=== PATIENT | female | born 1975 | race Caucasian/White ===

== ENCOUNTER 2021-01-14 12:45 | Outpatient (REF) | payer OTHER, SELFPAY ==
[2021-01-14 13:58] LABS: MANUAL DIFF FLAG NO
[2021-01-14 14:04] LABS: Basophils Percent Auto 0.3 % (0-2); Eosinophils Percent Auto 0.1 % (0-4); Hematocrit 46.9 % (37-47); Hemoglobin 15.7 g/dl (12.0-16.0); Imm Gran Abs Auto 0.01 X10*3/uL (0.00-0.03); Imm Gran Pct Auto 0.1 % (0.0-0.4); Lymphocytes Absolute Auto 1.9 X10*3/uL (1.2-4.9); Lymphocytes Percent Auto 27.3 % (20-40); Mean Corpuscular HGB Conc 33.5 g/dl (31.0-35.0); Mean Corpuscular Hemoglobin 28.4 pg (27.0-33.0); Mean Platelet Volume 10.1 fL (9.4-12.3); Monocytes Absolute Auto 0.5 X10*3/uL (0.1-1.2); Monocytes Percent Auto 7.9 % (2-11); Neutrophils Absolute Auto 4.4 X10*3/uL (2.0-8.3); Neutrophils Percent Auto 64.3 % (45-73); Platelet Count 189 X10*3/uL (160-400); Red Blood Count 5.52 X10*6/uL (4.20-5.50); Red Cell Distribution Width 12.9 % (11.0-16.0); White Blood Count 6.9 X10*3/uL (4.8-10.8)
[2021-01-14 14:57] LABS: Anion Gap 15 (12-20); Blood Urea Nitrogen 13 mg/dL (9-16); Carbon Dioxide 25 mmol/L (22-29); Chloride 105 mmol/L (96-108); Cholesterol 168 mg/dL; Estimated Glomerular Filt Rate > 60; Glucose Fasting 86 mg/dL (60-99); HDL Cholesterol 33 mg/dL; LDL Cholesterol Calculated 97 mg/dl; Potassium 4.5 mmol/L (3.3-5.1); Sodium 140 mmol/L (135-145); Triglycerides 194 mg/dL
[2021-01-14 15:20] LABS: TSH reflex Free T4 0.91 uIU/mL (0.32-4.0); Vitamin D 25-OH Total 23.6 ng/mL (>30)
[2021-01-14 15:44] LABS: Folate 11.8 ng/mL (> or = 4.0); Vitamin B12 342 pg/mL (200-900)
[2021-01-15 08:33] LABS: HBsAGNum1 0.18 S/CO (0.00-0.99); Hepatitis A Antibody IgM 0.09 Index (0-0.79); Hepatitis B Surface Antigen Negative (Negative); ~Hepatitis A Antibody IgM Nonreactive (Nonreactive)
[2021-01-15 08:40] LABS: Syphilis Screen Nonreactive (Nonreactive)
[2021-01-15 08:58] LABS: HBS Num1 > 1000.00 mIU/mL (0-7.99); HBc Num1 0.07 S/CO (0.00-0.79); Hepatitis B Core Antibody Nonreactive (Nonreactive); ~Hepatitis B Surface Antibody REACTIVE (Nonreactive)
[2021-01-15 08:59] LABS: ~Hepatitis C Antibody Nonreactive (Nonreactive)
[2021-01-15 11:02] LABS: HIV Num 3 1.14 S/CO
[2021-01-15 11:05] LABS: HIV Num 1 1.13 S/CO (0.00-0.99)
[2021-01-15 11:16] LABS: HIV AB/AG Reactive (Nonreactive)
[2021-01-15 11:40] LABS: CT PCR NOT DETECTED (Not Detect.); NG PCR NOT DETECTED (Not Detect.)
[2021-01-16 13:02] LABS: HIV 1 Antibody NEGATIVE (NEGATIVE); HIV 2 Antibody NEGATIVE (NEGATIVE)
[2021-01-19 14:57] LABS: HIV-1 RNA TMA Qualitative Not Detected (Not Detected)
== END 2021-01-14 12:46 | disposition home or self-care (01) ==
LOC: HO.HMGCLDS 12:45
PROVIDERS: PCP Internal Medicine; Visit Provider Internal Medicine
DX: Z00.01 Encounter for general adult medical examination with abnormal findings (principal); R06.00 Dyspnea, unspecified; I10 Essential (primary) hypertension; Z11.59 Encounter for screening for other viral diseases; Z11.4 Encounter for screening for human immunodeficiency virus [HIV]; Z13.220 Encounter for screening for lipoid disorders; Z11.3 Encounter for screening for infections with a predominantly sexual mode of transmission; Z11.8 Encounter for screening for other infectious and parasitic diseases; Z13.29 Encounter for screening for other suspected endocrine disorder
CPT/HCPCS: 36415; 80048; 80061; 82306; 82607; 82746; 84443; 85025; 86701; 86702; 86704; 86706; 86709; 86780; 86803; 87340; 87389; 87491; 87591

== ENCOUNTER 2021-02-28 14:28 | Outpatient (REF) | payer OTHER, SELFPAY ==
--- NOTE | ~2021-02-28 | US_ITS ---
EXAMINATION: MM DIAGNOSTIC DIGITAL BREAST TOMOSYNTHESIS, BILATERAL US DIAGNOSTIC ULTRASOUND BREAST, LEFT CLINICAL INFORMATION: 45-year-old female with 3-4 months history palpable area posterior upper outer left breast. Family history breast cancer mother, age 38. TC score 21%. COMPARISON: Outside mammography 08/26/2013, 06/05/2010 ([facility]). TECHNIQUE: Digital breast tomosynthesis is performed in both the craniocaudal and mediolateral oblique views along with computer-aided detection (CAD). Synthesized 2D images are generated from the tomosynthesis. Ultrasound left breast is targeted to the area of clinical concern posterior upper outer breast. Additional imaging axilla are also performed. Grayscale imaging and color Doppler are performed without and with harmonics. FINDINGS: The breasts are heterogeneously dense, which may obscure small masses (ACR BI-RADS breast composition Category c). Right breast parenchymal pattern is similar to outside exams. There is no interval mass or architectural abnormality. Neither breast shows abnormal calcifications. The skin contours are smooth. Axillary nodes are similar to prior mammography 2012. Left breast has new mass posterior upper outer quadrant in area of palpable concern measuring approximately 1.7 cm. There are 3 punctate round calcifications within the lesion. Ultrasound demonstrates heterogeneous macrolobulated hypoechoic mass posterior upper outer quadrant 9 cm from nipple measuring 1.8 x 1.4 x 1.7 cm. Left axillary nodes showing normal fatty hilus and normal color flow. Results are discussed with the patient at time of visit. Ultrasound-guided core biopsy is recommended. Results and recommendation called to air support control officer (Ng[employer]) for Dr. Enriquez on 02/28/2021. US/US breast LT limited IMPRESSION: 1. Left: New solid mass at site of palpable concern posterior upper outer left breast 1.8 cm. 2. Right: No mammographic evidence of malignancy. ASSESSMENT: BI-RADS 4: Suspicious RECOMMENDATION: Ultrasound-guided core biopsy left breast mass. This patient's information was entered into a reminder system with a target due date for their next mammogram.
== END 2021-02-28 14:29 | disposition home or self-care (01) ==
LOC: HO.MAMMO 14:28
PROVIDERS: PCP Internal Medicine; Visit Provider Internal Medicine
DX: N63.21 Unspecified lump in the left breast, upper outer quadrant (principal)
CPT/HCPCS: 76642; 77062; 77066

== ENCOUNTER → 2021-03-12 08:44 | Outpatient (BNVA) | payer OTHER, SELFPAY | PROVIDERS: PCP Internal Medicine; Visit Provider Surgery | DX: N63.21 Unspecified lump in the left breast, upper outer quadrant (principal); Z84.81 Family history of carrier of genetic disease | CPT/HCPCS: 99202 ==

== ENCOUNTER 2021-03-13 08:01 | Outpatient (REF) | payer OTHER, SELFPAY ==
--- NOTE | ~2021-03-13 | US_ITS ---
PROCEDURE: US GUIDED BREAST BIOPSY, LEFT CLINICAL INFORMATION: Left breast hypoechoic mass 1:00 position COMPARISON: February 28, 2021 PROCEDURAL DETAILS: The details of the procedure, as well as the risks, benefits, and alternatives to the procedure were explained to the patient in detail and all of her questions were answered, after which written informed consent was obtained. Site and side were confirmed. Prior to the procedure, sonography revealed hypoechoic mass 1:00 position 9 cm from the nipple. A time-out was performed, the lesion intended for biopsy was targeted, and the skin of the left breast was then prepped and draped in the usual sterile fashion. Using sonographic guidance, sterile technique, and 1% lidocaine without epinephrine for local anesthesia, multiple automated core biopsies were obtained through the targeted area with a 14G spring loaded Achieve core biopsy device. There was real-time confirmation of appropriate needle passage. Sampling was documented. At the completion of tissue sampling, a single hydromark butterfly metallic clip was deposited at the biopsy site. There was no evidence of immediate complication. SPECIMEN: An appropriate sample was obtained. DIGITAL POST-PROCEDURE MAMMOGRAPHY: Breast density: Tissue is heterogeneously dense which can limit evaluation (ACR BI-RADS breast density composition category C) There are no new mammographic findings demonstrated. The postprocedure 2-view direct digital mammogram reveals satisfactory positioning of the biopsy clip. The patient tolerated the procedure well and, after assuring adequate hemostasis, was discharged in good condition after reviewing postbiopsy breast care instructions. Final pathology results are pending. US/US breast ndl core biopsy LT IMPRESSION: 1. No immediate complication from ultrasound-guided percutaneous biopsy left breast. 2. Ultrasound was used to localize and guide marker clip placement. 3. The 2-view direct digital postprocedure mammogram reveals satisfactory positioning of the biopsy clip. 4. Final pathology results are pending. A separate report with final recommendations will be issued once these results are made available.
--- NOTE | ~2021-03-13 | MM_ITS ---
DIGITAL POST-PROCEDURE MAMMOGRAPHY: Breast density: Tissue is heterogeneously dense which can limit evaluation (ACR BI-RADS breast density composition category C) There are no new mammographic findings demonstrated. The postprocedure 2-view direct digital mammogram reveals satisfactory positioning of the biopsy clip. The patient tolerated the procedure well and, after assuring adequate hemostasis, was discharged in good condition after reviewing postbiopsy breast care instructions. Final pathology results are pending. MM/MM diagnostic mammo unilat LT IMPRESSION: 1. No immediate complication from ultrasound-guided percutaneous biopsy left breast. 2. Ultrasound was used to localize and guide marker clip placement. 3. The 2-view direct digital postprocedure mammogram reveals satisfactory positioning of the biopsy clip. 4. Final pathology results are pending. A separate report with final recommendations will be issued once these results are made available.
== END 2021-03-13 08:02 | disposition home or self-care (01) ==
LOC: HO.MAMMO 08:01
PROVIDERS: Visit Provider Internal Medicine
DX: C50.412 Malignant neoplasm of upper-outer quadrant of left female breast (principal)
CPT/HCPCS: 19083; 77065; 88305; 88342; 88360

== ENCOUNTER → 2021-03-18 15:28 | Outpatient (BNVA) | payer OTHER, SELFPAY | PROVIDERS: PCP Internal Medicine; Visit Provider Surgery | DX: C50.912 Malignant neoplasm of unspecified site of left female breast (principal); Z84.81 Family history of carrier of genetic disease | CPT/HCPCS: 99212 ==

== ENCOUNTER → 2021-04-07 09:29 | Outpatient (BNV) | payer MEDICARE, OTHER, MEDICAID, SELFPAY | PROVIDERS: PCP Internal Medicine; Referring Provider Surgery; Visit Provider Internal Medicine Medical Oncology | DX: C50.412 Malignant neoplasm of upper-outer quadrant of left female breast (principal); Z17.1 Estrogen receptor negative status [ER-] | CPT/HCPCS: 99204; 99213; 99214 ==

== ENCOUNTER → 2021-04-17 11:33 | Outpatient (BNVA) | payer OTHER, SELFPAY | PROVIDERS: PCP Internal Medicine; Referring Provider Internal Medicine; Visit Provider Surgery | DX: Z01.818 Encounter for other preprocedural examination (principal); C50.912 Malignant neoplasm of unspecified site of left female breast | CPT/HCPCS: 99212 ==

== ENCOUNTER 2021-04-29 09:05 | Day surgery (SDC) | payer OTHER, SELFPAY ==
--- NOTE | 2021-04-25 13:44 | P.CONAN_ITS ---
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 (Muscle biopsy delayed d/t breast ca dx.) Case reviewed with Dr Zuleta. Pt to have gatorade until 0900 DOS (scheduled for OR at 1300) to avoid prolonged fasting. Per T/C with pt 04/24/21: No exacerbation of symptoms since evaluation by local Inspector Barrel (Dr Jones). Usually able to perform moderate activity (walking a couple blocks) with mild SOB, but occasionally dyspnea at rest. [facility] Active Problems Active Problems: All Active Problems (Updated 04/22/21 @ 09:20 by Abisai Cunningham RN) Diastolic dysfunction (Acute) Breast cancer of upper-outer quadrant of left female breast (Acute) Invasive ductal carcinoma of left breast (Acute) Family history of breast cancer gene mutation in first degree relative (Acute) Left breast mass (Acute) Exertional dyspnea (Acute) Past Medical History Medical History (Updated 04/29/21 @ 09:20 by Pebbles Moreno RN) Diastolic dysfunction Exertional dyspnea Family history of breast cancer gene mutation in first degree relative Hx of cyst of breast Hx of lipoma Invasive ductal carcinoma of left breast Left breast mass Family History Family History Mother Breast cancer, Onset Age: 38 Father CAD (coronary artery disease) Hyperlipidemia HTN (hypertension) History of cardiac defibrillator placement Pacemaker Family/Other Lymphoma Paternal Grandmother Dementia Surgical History Surgical History Endometriosis History of excision of mass Social History Social History Alcohol intake: current Alcohol intake frequency: holidays/special occasions only Patient Tobacco Use Status: Current everyday Tobacco user Tobacco use type: Cigarette Cigarette Packs Per Day: 0.5 Cigarettes Per Day: 10.0 Smoked in Last 30 Days: Yes Use of substances other than those prescribed or required for medical reasons: No Substance Use Type: Marijuana Are you DNR?: Yes Advance Directives: No Advance Directives Information Provided: Yes Recently lost weight without trying: No Nutrition Risks: No Nutritional Risk Meds Allergies Allergy/AdvReac Type Severity Reaction Status Date / Time bee pollen [BEE STINGS] Allergy Severe ANAPHYLAXIS Verified 04/17/21 11:39 Penicillins Allergy Intermediate Unknown Verified 04/17/21 11:39 danazol Allergy Unknown hand Verified 04/17/21 11:39 swelling sertraline [Zoloft] AdvReac Unknown increasedi Verified 04/17/21 11:39 rritability codeine AdvReac Unknown nausea Uncoded 02/27/20 00:00 prilosec AdvReac Unknown bloating Uncoded 02/27/20 00:00 Home Medications Medication Instructions Recorded Confirmed Last Taken Type metoprolol tartrate 25 mg tablet 25 mg PO BID 01/14/21 04/29/21 Unknown History nitroglycerin 0.4 mg sublingual 0.4 mg SUBLINGUAL Q5M PRN 01/14/21 04/07/21 Unknown History tablet Exam Exam Date and Time: April 25, 2021 1344 Pertinent Lab Results Pertinent Lab Results: Laboratory Tests 04/07/21 04/07/21 11:05 11:05 WBC 9.9 Hgb 14.1 Hct 42.0 Plt Count 190 Sodium 140 Potassium 4.5 Chloride 108 Carbon Dioxide 26 BUN 11 Creatinine 0.71 Narrative Narrative: EKG 03/2021 NSR @ 76 ECHO 04/16/21 Borderline LVH with normal LV systolic function. EF 55% Normal RV size and function Normal diastolic function Normal valve structure and function Normal PA pressure estimation No significant change from 2013 Level 3 Cardiopulmonary Exercise Test 07/2020: Peripheral limit to exercise based on relatively depressed VO2 pieak compared to peak exercise cardiac ouput, associated with impaired systemic O2 extraction. Biventricular filling pressures are normal. which militates against dysautonomia as a cause. Skeletal muscle mitochondrial dysfunction is possible. There is no pulmonary mechanical limit, pulmonary htn, or heart failure. Skin biopsy was negative for small fiber neuropathy. Muscle biopsy delayed d/t breast CA dx. Per recent cardiac note: Right heart cath unremarkable PFT showed mild asthma Normal VQ scan Multiple normal nuclear stress tests Assessment and Plan Assessment Anesthesia Assessment: Chart Reviewed Documented by User: Rey Gunter MD 04/29/21 13:06 HPI - Anesthesia Eval Consult details Narrative: Pt has DNR status. Discussed w her at length. Will suspend DNR status for OR period. [facility] Past Medical History Medical History (Updated 04/29/21 @ 09:20 by Pebbles Moreno RN) Diastolic dysfunction Exertional dyspnea Family history of breast cancer gene mutation in first degree relative Hx of cyst of breast Hx of lipoma Invasive ductal carcinoma of left breast Left breast mass Family History Family History Mother Breast cancer, Onset Age: 38 Father CAD (coronary artery disease) Hyperlipidemia HTN (hypertension) History of cardiac defibrillator placement Pacemaker Family/Other Lymphoma Paternal Grandmother Dementia Family history of problems with anesthesia: No Surgical History Surgical History Endometriosis History of excision of mass History of Problems with Anesthesia: Yes (PONV.) Social History Social History Alcohol intake: current Alcohol intake frequency: holidays/special occasions only Patient Tobacco Use Status: Current everyday Tobacco user Tobacco use type: Cigarette Cigarette Packs Per Day: 0.5 Cigarettes Per Day: 10.0 Smoked in Last 30 Days: Yes Use of substances other than those prescribed or required for medical reasons: No Substance Use Type: Marijuana Are you DNR?: Yes Advance Directives: No Advance Directives Information Provided: Yes Recently lost weight without trying: No Nutrition Risks: No Nutritional Risk Meds Allergies Allergy/AdvReac Type Severity Reaction Status Date / Time bee pollen [BEE STINGS] Allergy Severe ANAPHYLAXIS Verified 04/17/21 11:39 Penicillins Allergy Intermediate Unknown Verified 04/17/21 11:39 danazol Allergy Unknown hand Verified 04/17/21 11:39 swelling sertraline [Zoloft] AdvReac Unknown increasedi Verified 04/17/21 11:39 rritability codeine AdvReac Unknown nausea Uncoded 02/27/20 00:00 prilosec AdvReac Unknown bloating Uncoded 02/27/20 00:00 Home Medications Medication Instructions Recorded Confirmed Last Taken Type metoprolol tartrate 25 mg tablet 25 mg PO BID 01/14/21 04/29/21 Unknown History nitroglycerin 0.4 mg sublingual 0.4 mg SUBLINGUAL Q5M PRN 01/14/21 04/07/21 Unknown History tablet Exam Airway Mallampati Class: I TM Dist: >3cm Neck ROM: Full Loose/Missing/Broken Teeth: Yes (Lower left cracked, loose tooth.) Assessment and Plan Assessment Anesthesia Assessment: Anesthesia Plan Discussed and Chart Reviewed Final Anesthetic Review NPO: Yes ASA Class: III Final Preanesthetic Review: No Changes in Pt Med Stat, Meds/Allgs Chart Reviewed, Consent Obtained/Reviewed, Anes Risks/Benef Reviewed and DNR Form (If Appl.) Patient Risk: Low Procedure Risk: Low Anesthetic Plan Anesthetic Plan: GA and Agree w/ Assess. and Plan Disposition: Standard PACU
--- NOTE | 2021-04-25 16:06 | PC.NURSE ---
Addendum entered by Karol Vela 04/25/21 16:26: Pt called back and instructions were given and questions were answered. Pt will be here 9AM 04/29/2021 for her surgery. Original Note: Attempted to call pt for arrival time for surgery scheduled for 04/29/2021. Pt's voice mailbox is full. Dr. Dutta's office made aware.
[2021-04-29] VITALS (9 sets, daily range): BP systolic 98–118; BP diastolic 63–80; PULSE 72–88; RESP 16–20; TEMP 36.4; O2SAT 94–98; BMI 25.0
--- NOTE | ~2021-04-29 | NM_ITS ---
EXAMINATION: NM LYMPH SCINTIGRAPHY CLINICAL INFORMATION: Left breast cancer. COMPARISON: None TECHNIQUE: The skin nipple interface of the left breast at the 12, 3, 6 and 9 o'clock axis was injected with 4 separate aliquots of 0.125 mCi technetium 99m labeled Lymphoseek for total dose of 0.5 mCi. Anterior [place] and left lateral imaging of the chest was performed at 20 minutes. FINDINGS: There is adequate radiotracer uptake seen at the skin nipple interface. There are multiple sentinel nodes seen probably in the left axilla and level 2 left retropectoral lymph nodes. There is also uptake seen along the lymphatic channel. NM/NM sentinel node w imaging IMPRESSION: Multiple sentinel nodes seen probably in the left axilla, level 2 retropectoral lymph nodes and along the lymphatic tract.
--- NOTE | ~2021-04-29 | MM_ITS ---
EXAMINATION: MM MAMMOGRAM GUIDED NEEDLE LOCALIZATION BREAST, LEFT MM NEEDLE LOCALIZATION SPECIMEN FROM THE LEFT BREAST CLINICAL INFORMATION: Invasive ductal cancer posterior upper outer left breast. COMPARISON: Mammography 02/28/2021, 03/13/2021, ultrasound left breast 5 05/13/2021, ultrasound-guided core biopsy left breast 03/13/2021. TECHNIQUE NEEDLE LOC: Proper informed consent is obtained from the patient after discussion of the procedure, potential risks and complications, and alternatives including declining the procedure today. Patient was given an opportunity for questions. The patient appeared to understand. The patient consented to the procedure and signed the consent form. GUIDANCE: Digital mammography. APPROACH: Cranio-caudal. TARGET: Mass with biopsy clip marker posterior upper outer left breast. ANESTHESIA: lidocaine 1%: 8 mL. LOCALIZATION MARKER: Boyce MammaLok. 7.5 cm in length. The skin is prepped and local anesthesia administered. The needle is positioned and position assessed with mammography. The wire is hooked into position. Robards needle protector placed. The patient tolerated the procedure well and had no immediate complication. Following the procedure, 4% lidocaine ointment was administered to the left areola and covered with Tegaderm in anticipation of nuclear lymphoscintigraphy injection for sentinel lymph node mapping. Procedure results called to medical technologist clinical (Lana) for Dr. Dutta. TECHNIQUE SPECIMEN RADIOGRAPH: Imaging of the excised specimen is performed using digital mammography in 1 view. FINDINGS SPECIMEN RADIOGRAPH: The specimen shows the needle and hookwire are delivered intact. The biopsy clip marker is in the specimen adjacent to the localization wire. The 3 punctate calcifications in the mass are also seen adjacent to the clip. There is also a group of over 10 calcifications in the specimen 3 cm from the clip. Results were called to Dr. Odell Dutta in the operating room at the time of imaging. MM/MM needle loc LT IMPRESSION: 1. Status post left breast needle localization with wire hooked into position. 2. Post operative specimen radiograph obtained.
[2021-04-29 09:22] LABS: UPreg QC Valid YES; Urine Pregnancy NEGATIVE (NEGATIVE)
--- NOTE | 2021-04-29 09:32 | PC.NURSE ---
patient states her friend is her hcp evan munroe.
--- NOTE | 2021-04-29 12:34 | MHC.SHP ---
Pre-Procedural Eval Section A Date of Service: 04/29/21 Section B Chief Complaint: Invasive ductal carcinoma of left breast Allergies: Allergies Allergy/AdvReac Type Severity Reaction Status Date / Time bee pollen [BEE STINGS] Allergy Severe ANAPHYLAXIS Verified 04/17/21 11:39 Penicillins Allergy Intermediate Unknown Verified 04/17/21 11:39 danazol Allergy Unknown hand Verified 04/17/21 11:39 swelling sertraline [Zoloft] AdvReac Unknown increasedi Verified 04/17/21 11:39 rritability codeine AdvReac Unknown nausea Uncoded 02/27/20 00:00 prilosec AdvReac Unknown bloating Uncoded 02/27/20 00:00 Plan I have reviewed the history and physical and performed a pertinent physical examination on my patient. No changes have occurred unless specified.
--- NOTE | 2021-04-29 12:45 | P.BOP_ITS ---
Brief Operative Note Date of Service: 04/29/21 Pre-op diagnosis: Invasive ductal carcinoma, left breast Post-op diagnosis: same Procedure: lumpectomy, left breast, with needle localization, with sentinel node biopsy Surgeon: Odell Dutta MD Anesthesia: GLMA Was an [employer] used for this Procedure?: No Estimated blood loss (mL): 50 Pathology: other ( 1. lumpectomy specimen 2. sentinel LN x 3 - counts:501, 156, 92; additional margins) Condition: stable Disposition: PACU
--- NOTE | 2021-04-29 12:45 | W.PM.OPN ---
Operative Note Operative Note Date of Service: 04/29/21 Narrative: Preop diagnosis: Invasive ductal carcinoma left breast Postop diagnosis: The same Procedure: Lumpectomy with needle localization, left breast, with sentinel node biopsy Surgeon: Odell Dutta Customer Assistance Associate: None Findings: Palpable mass vague, about 1.8 cm in the mid part of the localizing needle; this was very close to the chest wall posteriorly and dissection of this actually exposed the pectoralis muscle laterally. There were 3 sentinel lymph nodes with counts of 501, 156, and 92. Additional margins all around the excision site was done at the end of the procedure after discussion with the pathologist. The patient is a 45 year female who had undergone ultrasound biopsy of left breast hypoechoic mass seen on a screening mammogram. The path report had shown an invasive ductal cell carcinoma. This was triple negative as well. She had to be seen by the medical oncologist prior to the surgery therefore. The patient understood her options of breast conservation treatment versus mastectomy. She understood the risks, benefits and alternatives and had opted to proceed with lumpectomy with needle localization and sentinel node biopsy. She had undergone needle localization earlier at the radiology Suite. She had also undergone scintigraphy of the left breast. I have reviewed I discussed these films with the radiologist prior to the procedure. The patient was brought to the operating room and placed supine on the table under general anesthesia via laryngeal mask airway. The localizing needle was seen to come from cephalad inferiorly on the left breast more towards the lateral aspect near the tail. A surgical time-out was done. The patient received cefazolin 2 g IV preoperatively. The left breast and the left axilla were prepped and draped in the usual sterile fashion. By palpating localizing needle and following its direction, I decided that the best incision based on the mammogram images would be from the entry point of the needle running posterior laterally in a curvilinear fashion. Since the area of the mass seemed to be near the tail of the breast, this incision would actually be very close to the lateral edge of the pectoralis and would therefore make the axilla accessible depending on the location of the sentinel nodes. I made the incision using blade 15 after infiltrating this area with lidocaine 1%. This incision was carried down through the full-thickness of the skin and subcutaneous fat with electrocautery. I then proceeded to used the curved Kiran scissors to divide through the breast tissue surrounding this localizing needle. I proceeded to gently dissect through the breast tissue circumferentially, with care being taken so as to ensure that we had generous tissue surrounding the needle for good margins. I therefore palpated for the direction of the needle periodically while dissecting. As we proceeded to dissect, I actually was able to feel for a vague mass, about 1.8 cm in diameter. I therefore made sure that we included this mass with the dissection. I was mindful of the margins around this mass. This mass was actually very near the chest wall and I had to use the Metzenbaum scissors to gently dissect the breast tissue off of the fascia to lift this up to try to achieve negative margins. With this form of dissection, we actually exposed the pectoralis muscle laterally and I could see that there was axillary contents posterior to this. I continued to therefore gently dissect this lumpectomy specimen off of the pectoralis and continue to use the Kiran scissors as we proceeded to divide through the breast tissue surrounding the tip of the needle. I could feel the tip of the needle as we dissected confirming that we had the entire needle with the surrounding breast tissue occluded with the dissection. We had to periodically cauterize some oozing areas. Eventually, I was able to deliver this lumpectomy specimen and this was sent for an immediate re-ray an immediate gross exam. I changed gloves and setup. Since I could really see the edge of the pectorals muscle, I knew that we would be able to access the axilla for sentinel node biopsy through this same incision. I applied retractors to expose the axillary fat pad. I then used the gamma probe and had elevated readings under the edge of the pectoralis. By the use of this probe, I was able to direct dissection towards 1 lymph node with a reading of 501. Thiis lymph node was gently dissected using the Metzenbaum scissors with retraction using Allis clamp until this was complete the and sent as a specimen. This was our sentinel node 1. By examining the rest of the axilla with use of the probe, I was able to have another reading of 156 in the axilla and I was able to visualize this lymph node. This was dissected free using fine dissection with the Metzenbaum scissors and sent as a specimen. This was our lymph node 2. A 3rd lymph node with a reading of 92 was also seen and dissected circumferentially and sent as a lymph node 3. Examination of the rest of the axilla with the use of the gamma probe did not reveal any elevated readings in the background. I therefore proceeded to irrigate copiously. I observed from his stasis. There was note of some oozing from the raw area of the pectoralis muscles anteriorly which was the posterior margin of our dissection so I had to cauterize this gently with the electrocautery. Once hemostasis was then confirmed and irrigation was done, I proceeded to reapposed the subcutaneous layer Dexon 3-0 sutures and closed the skin with subcuticular running Dexon 4-0 sutures. We then waited for a report from the radiologist and the pathologist. The pathologist had stated that the re-ray of the specimen showed that the clip was in place and that the entire localizing needle intact and that it appeared that we had good margins radiographically. I therefore eventually called the pathologist to check for the immediate gross exam. The pathologist stated that the margins appeared to be close in the deep margins posteriorly, laterally and medially as there appeared to be a significantly sized mass. I therefore proceeded to open up the incision again. I dissected circumferentially around the excision cavity to include additional lateral margins, medial margins, and posterior margins. The margins posteriorly actually were already right on the chest wall be with exposed pectoralis. I was able to remove more of the breast tissue in the deeper margins off of the pectoralis and this were sent additional margins and labeled as such. I then observed for hemostasis again. I had to cauterize the pectoralis again because of the oozing areas of the exposed muscle fibers. I observed for about 2 minutes. Once hemostasis ensured, I copiously irrigated again. I closed the subcutaneous layer with Dexon 3-0 interrupted sutures. Skin closure was achieved with Dexon 4-0 subcuticular running stitch. I infiltrated the area with Marcaine 0.5% for postop analgesia. Steri-Strips and dressings were applied. The procedure was then completed The patient tolerated procedure well. There were no complications noted. Initial and final counts of sponges and instruments were correct. Estimated blood loss about 50 cc. The patient is then extubated without difficulty and transferred to the recovery room with stable vital signs. Breast Farwell Node Biopsy Substrate(s) used for sentinel node biopsy in the non-neoadjuvant setting: Radiotracer All significantly radioactive nodes were removed, if radionuclide was used as the substrate for localization: Yes All palpably suspicious nodes were removed, if present: Yes If clips were placed in pathology-involved nodes, those nodes were identified and removed: Yes General Surg. - Synoptic Notes Breast Farwell Node Biopsy Substrate(s) used for sentinel node biopsy in the non-neoadjuvant setting: Radiotracer All significantly radioactive nodes were removed, if radionuclide was used as the substrate for localization: Yes All palpably suspicious nodes were removed, if present: Yes If clips were placed in pathology-involved nodes, those nodes were identified and removed: Yes
[2021-04-29] MEDS: ondansetron HCL 4 MG/2 ML VIAL IVPUSH (16:15)
== END 2021-04-29 17:30 | disposition home or self-care (01) ==
PROVIDERS: Nurse Practitioner; PCP Internal Medicine; Visit Provider Surgery
PROC: (CPT 19301; principal; 2021-04-29 13:00)
PROC: (CPT 19301; 2021-04-29 13:00)
PROC: (CPT 19301; 2021-04-29 13:00)
DX: C50.912 Malignant neoplasm of unspecified site of left female breast (principal); Z17.1 Estrogen receptor negative status [ER-]; Z84.81 Family history of carrier of genetic disease; Z80.3 Family history of malignant neoplasm of breast; J45.909 Unspecified asthma, uncomplicated; Z79.899 Other long term (current) drug therapy; F12.90 Cannabis use, unspecified, uncomplicated; Z88.0 Allergy status to penicillin; Z88.8 Allergy status to other drugs, medicaments and biological substances; Z66 Do not resuscitate
CPT/HCPCS: 19301; 38525; 19281; 78195; 81025; 88307; 88329; 88342; 88360; A9520; J0131; J0690; J1100; J2405; J3010

== ENCOUNTER → 2021-05-08 14:33 | Outpatient (BNVA) | payer OTHER, SELFPAY | PROVIDERS: PCP Internal Medicine; Referring Provider Internal Medicine; Visit Provider Surgery | DX: C50.912 Malignant neoplasm of unspecified site of left female breast (principal) | CPT/HCPCS: 99212 ==

== ENCOUNTER 2021-05-30 12:04 | Day surgery (SDC) | payer OTHER, SELFPAY ==
--- NOTE | ~2021-05-30 | IR_ITS ---
PROCEDURE: IR INSERTION OF TUNNEL CATHETER CLINICAL INFORMATION: Breast cancer. COMPARISON: None TECHNIQUE: Procedure and risks and benefits including bleeding, infection and pneumothorax were discussed with the patient and informed consent was obtained. All elements of maximal sterile barrier technique followed including use of cap, mask, sterile gown, sterile gloves, a sterile full body drape and hand hygiene. Also followed skin preparation with 2% chlorhexidine for cutaneous antisepsis, and sterile ultrasound preparation with sterile gel and probe cover when applicable. The right neck and chest were prepped and draped in the usual sterile fashion. The skin and soft tissues of the right lower neck were anesthetized with 1% lidocaine plain. Using ultrasound guidance and a 5 [place] micropuncture system, right internal jugular vein access was obtained. Over a 0.018 wire, a 5 [place] dilator was positioned in the SVC. The skin and soft tissues of the right upper anterior chest were anesthetized with 1% lidocaine plain. A small incision was made. Using blunt dissection, a subcutaneous pocket was created. A subcutaneous tunnel from the chest to the neck incision was anesthetized with 1% lidocaine plain. Using a tunneler, a 6.6 [place] single-lumen catheter was tunneled from the chest. The catheter was attached to the port. The port and catheter were flushed. The port was positioned in the subcutaneous pocket and secured using two 2-0 nonabsorbable sutures. A 0.035 guidewire was advanced through the 5 [place] dilator into the IVC. 5 [place] dilator was exchanged for a 7 [place] peel-away sheath. Using bent wire technique, catheter length was estimated and the catheter was cut. The catheter was fed through the peel-away sheath. Catheter length was 20 cm. The neck incision was closed using a 4-0 absorbable subcuticular suture. The chest incision was closed using three 3-0 absorbable interrupted sutures followed by a running subcuticular 4-0 absorbable suture. The port was accessed. The port had good blood return, flushed easily and was instilled with heparin 5 mL 500 unit per mL solution. The patient received Versed 1 mg and fentanyl 50 mcg intravenously during the procedure and Kefzol 2 g IV. Real-time ultrasound guidance was used to document vein patency and for needle entry. A formal ultrasound picture was recorded. Total sedation time: 30 minutes. Fluoroscopy time: 0.3 minutes. DAP: 33 cGy-cm2. FINDINGS: There is a right internal jugular Port-A-Cath with tip projecting over the cavoatrial junction. IR/IR us guide venous access IMPRESSION: Right internal jugular 6.6 [place] single-lumen Dignity Port-A-Cath placement.
--- NOTE | ~2021-05-30 | IR_ITS ---
PROCEDURE: IR INSERTION OF TUNNEL CATHETER CLINICAL INFORMATION: Breast cancer. COMPARISON: None TECHNIQUE: Procedure and risks and benefits including bleeding, infection and pneumothorax were discussed with the patient and informed consent was obtained. All elements of maximal sterile barrier technique followed including use of cap, mask, sterile gown, sterile gloves, a sterile full body drape and hand hygiene. Also followed skin preparation with 2% chlorhexidine for cutaneous antisepsis, and sterile ultrasound preparation with sterile gel and probe cover when applicable. The right neck and chest were prepped and draped in the usual sterile fashion. The skin and soft tissues of the right lower neck were anesthetized with 1% lidocaine plain. Using ultrasound guidance and a 5 [place] micropuncture system, right internal jugular vein access was obtained. Over a 0.018 wire, a 5 [place] dilator was positioned in the SVC. The skin and soft tissues of the right upper anterior chest were anesthetized with 1% lidocaine plain. A small incision was made. Using blunt dissection, a subcutaneous pocket was created. A subcutaneous tunnel from the chest to the neck incision was anesthetized with 1% lidocaine plain. Using a tunneler, a 6.6 [place] single-lumen catheter was tunneled from the chest. The catheter was attached to the port. The port and catheter were flushed. The port was positioned in the subcutaneous pocket and secured using two 2-0 nonabsorbable sutures. A 0.035 guidewire was advanced through the 5 [place] dilator into the IVC. 5 [place] dilator was exchanged for a 7 [place] peel-away sheath. Using bent wire technique, catheter length was estimated and the catheter was cut. The catheter was fed through the peel-away sheath. Catheter length was 20 cm. The neck incision was closed using a 4-0 absorbable subcuticular suture. The chest incision was closed using three 3-0 absorbable interrupted sutures followed by a running subcuticular 4-0 absorbable suture. The port was accessed. The port had good blood return, flushed easily and was instilled with heparin 5 mL 500 unit per mL solution. The patient received Versed 1 mg and fentanyl 50 mcg intravenously during the procedure and Kefzol 2 g IV. Real-time ultrasound guidance was used to document vein patency and for needle entry. A formal ultrasound picture was recorded. Total sedation time: 30 minutes. Fluoroscopy time: 0.3 minutes. DAP: 33 cGy-cm2. FINDINGS: There is a right internal jugular Port-A-Cath with tip projecting over the cavoatrial junction. 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
[2021-05-30 12:36] VITALS: BMI 24.7
[2021-05-30 12:43] LABS: UPreg QC Valid YES; Urine Pregnancy NEGATIVE (NEGATIVE)
[2021-05-30 12:50] LABS: Prothrombin Time 11.3 SEC (9.9-13.0)
[2021-05-30 12:52] LABS: Partial Thromboplastin Time 32.3 SEC (24.1-38.0)
[2021-05-30] MEDS: Lidocaine HCl 1 % MPF 5 ML VIAL SUBCUT (15:05)
--- NOTE | 2021-05-30 15:11 | HO.RADPN ---
RADIOLOGY Narrative Narrative: Right IJ 6.6 Fr single lumen Dignity portacath placed.
[2021-05-30 15:17] VITALS: BP 106/69; PULSE 76; RESP 16; TEMP 36.7; O2SAT 96
[2021-05-30 15:30] VITALS: BP 111/65; PULSE 87; RESP 16; O2SAT 96
[2021-05-30 15:45] VITALS: BP 111/68; PULSE 85; RESP 16; O2SAT 96
== END 2021-05-30 15:31 | disposition home or self-care (01) ==
PROVIDERS: Radiology Diagnostic Radiology; PCP Internal Medicine; Visit Provider Radiology Diagnostic Radiology
DX: C50.412 Malignant neoplasm of upper-outer quadrant of left female breast (principal); Z17.1 Estrogen receptor negative status [ER-]; Z80.3 Family history of malignant neoplasm of breast; I50.9 Heart failure, unspecified; F17.210 Nicotine dependence, cigarettes, uncomplicated; Z79.899 Other long term (current) drug therapy; Z88.0 Allergy status to penicillin; Z88.8 Allergy status to other drugs, medicaments and biological substances
CPT/HCPCS: 36415; 36561; 76937; 81025; 85610; 85730; 99152; 99153; C1769; C1788; J0690; J1642; J2250; J3010

== ENCOUNTER 2021-06-03 15:16 | Outpatient (REF) | payer OTHER, SELFPAY ==
--- NOTE | ~2021-06-03 | US_ITS ---
EXAMINATION: US VENOUS WITH DOPPLER UPPER EXTREMITY, left upper extremity CLINICAL INFORMATION: Palpable cordlike lump COMPARISON: None TECHNIQUE: Ultrasound of the upper extremity is performed using compression sonography and color and pulse Doppler flow with assessment of augmentation of flow. There is also imaging and Doppler assessment of the jugular and subclavian veins. Spectral analysis with color-flow imaging is performed. FINDINGS: Respiratory variation, normal compression, and augmented flow are noted throughout the upper extremity including the axillary, brachial, cubital, and radial and ulnar veins. There is normal flow in the internal jugular and subclavian veins. There is no visible deep or superficial thrombophlebitis. If the patient's symptoms progress, a followup ultrasound in 5 -7 days might be of value to exclude proximal propagation from a nonvisualized distal arm vein. US/US venous duplex UE LT IMPRESSION: No DVT demonstrated in the left arm
== END 2021-06-03 15:17 | disposition home or self-care (01) ==
LOC: HO.US 15:16
PROVIDERS: PCP Internal Medicine; Visit Provider Internal Medicine Medical Oncology
DX: R22.32 Localized swelling, mass and lump, left upper limb (principal)
CPT/HCPCS: 93971

== ENCOUNTER → 2021-06-09 15:49 | Outpatient (BNVA) | payer OTHER, SELFPAY | PROVIDERS: PCP Internal Medicine; Referring Provider Internal Medicine; Visit Provider Surgery | DX: C50.912 Malignant neoplasm of unspecified site of left female breast (principal) | CPT/HCPCS: 99212 ==

== ENCOUNTER 2021-09-02 14:01 | Outpatient (REF) | payer OTHER, SELFPAY ==
--- NOTE | ~2021-09-02 | FL_ITS ---
EXAMINATION: FL PORT INJECTION WITH RADIOLOGICAL SUPERVISION AND INTERPRETATION CLINICAL INFORMATION: No blood return from port. COMPARISON: None TECHNIQUE: The patient presented with the port accessed. A boarder steam film was obtained. No blood could be aspirated from the port. The port was flushed with saline. Approximately 5 mL of Omnipaque 300 contrast was injected through the port. The port was subsequently flushed with saline followed by 5 mL of heparin flush. FINDINGS: There is a right jugular port with the tip projecting over the cavoatrial junction. There is a recording device projecting over the right lower medial chest. The port and catheter appear intact and patent. There is a large fibrin sheath at the distal end of the catheter. FL/FL cva device check w fluoro IMPRESSION: Large fibrin sheath at the distal end of the catheter.
[2021-09-02] MEDS: iohexoL 300 MG/ML 50 ML INFUS..BTL IV (15:12)
== END 2021-09-02 14:02 | disposition home or self-care (01) ==
LOC: HO.XRAY 14:01
PROVIDERS: PCP Internal Medicine; Visit Provider Internal Medicine Medical Oncology
DX: Z45.2 Encounter for adjustment and management of vascular access device (principal)
CPT/HCPCS: 36598; J1642; Q9967

== ENCOUNTER → 2021-10-03 11:40 | Outpatient (REF) | payer OTHER, SELFPAY ==
--- NOTE | 2021-10-03 11:44 | CA_ITS ---
Transthoracic Echocardiogram Patient (Last, First, Middle): Marah Rivera N Gender: Female Date of : 1975 Age: 45 Procedure Date: 10/03/2021 Procedure Type: Transthoracic Echocardiogram Location: OP Height: 157.48 cm Weight: 70.31 kg BSA: 1.72 m2 Heart Rate: bpm BP: 129 / 85 mmHg Heel Slugger: DSDereje Referring MD: Renita Torres MD Symptoms: Breast cancer on chemotherapy evaluate cardiac function Study Quality: Fair Conclusions: - Limited echo. - Normal left ventricular size and systolic function. - There is mildly increased left ventricular wall thickness. - visually estimated ejection fraction is between 60-65%. - Normal right ventricular cavity size and systolic function. Findings Left Ventricle Normal left ventricular size and systolic function. There is mildly increased left ventricular wall thickness. The visually estimated ejection fraction is between 60-65%. There is no evidence of regional wall motion abnormalities. Abnormal diastolic function is noted. Spectral Doppler is indicative of an impaired relaxation filling pattern. E/E prime ratio is between 8 and 15 consistent with indeterminate filling pressures. Right Ventricle Normal right ventricular cavity size and systolic function. Mitral Valve Normal mitral valve structure and function. There is trace mitral valve regurgitation. There is no mitral valve stenosis. Venous The inferior vena cava is normal in size and collapses greater than 50% with inspiration. Pericardium/Pleural There is no evidence of pericardial effusion. Prior Study Comparison No prior study available for comparison. Prior study done at [facility] in March 2021 Measurements M-Mode Liner Measurements Normals - Women/Men IVSd: 1.42 0.6-0.9/0.6-1.0 cm LVIDd: 4.19 3.9-5.3/4.2-5.9 cm LVIDd Index: 2.44 1.9-3.2 cm/m2 LVIDs: 2.77 2.0-3.8 cm LVPWd: 0.08 0.6-0.9/0.6-1.0 cm LV Mass: 114.78 67-162/88-224g LV Mass Index: 66.73 43-95/49-115 g/m2 M-Mode Volumes LV EDV: 78.10 LV ESV: 28.80 2D Linear Measurements IVSd: 0.99 0.6-0.9/0.6-1.0 cm LVIDd: 4.18 3.9-5.3/4.2-5.9 cm LVIDd Index: 2.43 2.4-3.2/2.2-3.1 cm/m2 LVIDs: 3.02 2.0-3.6 cm LVPWd: 0.98 0.7-1.1 cm LV Mass: 166.43 67-162/88-224 g LV Mass Index: 96.76 43-95/49-115 g/m2 2D Systolic Function EF 4C: 67.00 >55% EF 2C: 58.70 >55% EF BiP: 63.30 >55% M-Mode Systolic Function FS: 33.90 27-47/25-43% LVEF: 63.10 >55% Mitral Valve MV Pk E: 0.75 MV PK A: 0.82 MV Decel Time: 121.00 E/A: 0.90 E'Lateral: 7.62 E'Medial: 6.74 E/E' Med: 11.20 E/E' Lat: 9.90 PHT: 35.00 MVA PHT: 6.29 Decel [place]: 6.24 Diastolic Function MV Pk E: 0.75 MV Pk A: 0.82 E/A: 0.90 E'Medial: 6.74 E/E' Med: 11.20 E' Laterial: 7.62 E/E' Lat: 9.90 Right Ventricle TAPSE (mm): 2.07 Updated in Other Vendor System with Status of Final Guille Godinez MD electronically signed on 10/06/2021 12:31:37 PM with status of Final
== END ==
LOC: HO.CARD 11:40
PROVIDERS: PCP Internal Medicine; Visit Provider Internal Medicine Medical Oncology
DX: Z51.11 Encounter for antineoplastic chemotherapy (principal); Z01.810 Encounter for preprocedural cardiovascular examination; C50.412 Malignant neoplasm of upper-outer quadrant of left female breast
CPT/HCPCS: 93308

== ENCOUNTER 2021-11-10 00:07 | Emergency (ER) | payer OTHER, SELFPAY ==
[2021-11-10 00:26] VITALS: BP 112/60; PULSE 110; RESP 18; TEMP 37.1; O2SAT 99; BMI 27.4
--- NOTE | 2021-11-10 00:37 | PC.NURSE ---
pt answers question when she wants too, has breast cancer just finished Chemo and is a DNR.
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
[2021-11-10 02:06] LABS: COVID-19 Test Negative (Negative); IDNOW Serial# 9DD0AD1C
--- NOTE | 2021-11-10 03:36 | PC.NURSE ---
PT refusing to give blood and urine at this time.
--- NOTE | 2021-11-10 04:50 | PC.NURSE ---
DAVID Rubio referral sent for crisis eval.
--- NOTE | 2021-11-10 05:04 | PC.NURSE ---
KATHLEENN called, ETA after 7am.
--- NOTE | 2021-11-10 05:09 | PC.NURSE ---
KATHLEENN called to inform that a commissary representative would be here to see the PT on the next shift.
--- NOTE | 2021-11-10 09:46 | PHA.MEDREC ---
Pharmacy Consult ? Medication Reconciliation Pharmacy has completed the medication reconciliation. Patient refused to talk to me. Med Rec compeleted by claim history. Maira Lara, FranD
[2021-11-10] MEDS: Nicotine 21 MG PATCH.TD24 TRANSDERMA (10:48)
--- NOTE | 2021-11-10 12:21 | PC.NURSE ---
client wanted me to note dads info: [address] [facility] [phone]
--- NOTE | 2021-11-10 16:39 | MHC.CARE ---
CARE Team evaluated patient, spoke to collaterals, consulted sports equipment supervisor and determined disposition to be inpatient psychiatric hospitalization.
--- NOTE | 2021-11-10 20:54 | MHC.CARE ---
Addendum entered by Nargis Choudhary [facility] 11/10/21 23:49: Pt has been accepted to [facility] in psychiatric unit for 11/11. Original Note: CARE Team exhausted bedsearch for pt. CARE Team will try again tomorrow.
[2021-11-10 22:47] LABS: Appearance Urine CLEAR; Color Urine YELLOW; Glucose Urine UA NEG (NEG); Leukocyte Esterase Urine NEG (NEG); Nitrite Urine NEG (NEG); Specific Gravity - Urine <= 1.005 (1.005-1.025); Urine Blood NEG (NEG); Urine Ketones NEG (NEG); Urine Protein NEG (NEG-TRACE)
[2021-11-10 23:05] LABS: Amphetamine Screen Urine Not Detected (Not Detect); Barbiturates, Urine Not Detected (Not Detect); Benzodiazepines Screen Urine Not Detected (Not Detect); Cannabinoid Screen Urine Not Detected (Not Detect); Cocaine Screen Urine Not Detected (Not Detect); Fentanyl, urine Not Detected (Not Detect); Opiate Screen Urine Not Detected (Not Detect); Phencyclidine Screen Urine Not Detected (Not Detect)
[2021-11-10 23:32] VITALS: BP 105/60; PULSE 92; RESP 16; TEMP 37.1; O2SAT 98
--- NOTE | 2021-11-11 05:43 | PC.NURSE ---
Patient was up most part of the night, self dialoguing, tangential, preoccupied, paranoid at baseline, no distress observed/reported, patient was not happy to hear when she was made aware of her acceptance to [facility], behavior non-concerning at this time, VSS, will continue.
--- NOTE | 2021-11-11 07:23 | PC.NURSE ---
patient was awake at beginning of shift periodically asking about possibility of not going to wing this am. patient resting in milieu otherwise patient appears in no distress
== END 2021-11-11 09:52 | disposition short-term general hospital (02) ==
PROVIDERS: Emergency Provider Emergency Medicine
DX: F41.9 Anxiety disorder, unspecified (principal); Z20.822 Contact with and (suspected) exposure to COVID-19; F17.200 Nicotine dependence, unspecified, uncomplicated; F12.90 Cannabis use, unspecified, uncomplicated; Z79.899 Other long term (current) drug therapy
CPT/HCPCS: 80307; 81003; 87635; 99285

== ENCOUNTER 2022-02-04 12:39 | Outpatient (REF) | payer OTHER, SELFPAY ==
[2022-02-04 14:15] LABS: Cholesterol 208 mg/dL; HDL Cholesterol 35 mg/dL; Triglycerides 402 mg/dL
== END 2022-02-04 12:40 | disposition home or self-care (01) ==
LOC: HO.HMGCLDS 12:39
PROVIDERS: PCP Internal Medicine; Visit Provider Internal Medicine
DX: Z00.01 Encounter for general adult medical examination with abnormal findings (principal); Z13.220 Encounter for screening for lipoid disorders
CPT/HCPCS: 36415; 80061

== ENCOUNTER 2022-08-19 14:00 | Outpatient (REF) | payer OTHER, SELFPAY ==
--- NOTE | ~2022-08-19 | MM_ITS ---
EXAMINATION: MM DIAGNOSTIC DIGITAL BREAST TOMOSYNTHESIS, BILATERAL CLINICAL INFORMATION: Triple-negative left breast cancer 2020. COMPARISON: Mammography: 03/13/2021 and studies dating back to 06/05/2010. TECHNIQUE: Digital breast tomosynthesis is performed in both the craniocaudal and mediolateral oblique views along with computer-aided detection (CAD). Synthesized 2D images are generated from the tomosynthesis. Additional spot magnification views and craniocaudal and 90 degree mediolateral views of the left breast performed. FINDINGS: The breasts are heterogeneously dense, which may obscure small masses (ACR BI-RADS breast composition Category c). There are no new significant masses, abnormal calcifications, or other abnormalities within the right breast. Postsurgical changes seen in the upper outer aspects of the left breast with no new abnormal dominant mass or suspicious grouping of microcalcifications identified. Results are provided to the patient at time of visit by the technologist. MM/MM tomosynthesis diagnostic BI IMPRESSION: No mammographic evidence of malignancy. Left breast postoperative change. ASSESSMENT: BI-RADS 2: Benign. RECOMMENDATION: Diagnostic mammography at time of next annual exam, due in 12 months. This patient's information was entered into a reminder system with a target due date for their next mammogram.
== END 2022-08-19 14:01 | disposition home or self-care (01) ==
LOC: HO.MAMMO 14:00
PROVIDERS: Absent Provider Internal Medicine Medical Oncology; PCP Internal Medicine; Visit Provider Internal Medicine
DX: C50.912 Malignant neoplasm of unspecified site of left female breast (principal)
CPT/HCPCS: 77062; 77066

== ENCOUNTER 2022-12-18 11:26 | Outpatient (REF) | payer OTHER, SELFPAY ==
--- NOTE | ~2022-12-18 | US_ITS ---
EXAMINATION: US ABDOMEN LIMITED CLINICAL INFORMATION: Right upper quadrant pain. COMPARISON: None TECHNIQUE: Real-time imaging of the right upper quadrant abdominal viscera. FINDINGS: The region the pancreas is unremarkable. No free fluid. Distal body and tail are not seen. The uncinate process is not seen. Liver shows overall increased echogenicity. Mildly heterogeneous in echotexture. No lesion. Gallbladder showing no evidence of stone or edema. Common duct measures 3 mm within normal limits The right kidney measures 10 cm. No hydronephrosis or stone. US/US abdomen limited IMPRESSION: No evidence of cholelithiasis or cholecystitis. Overall increased echogenicity within the liver may be consistent with fatty change. No free fluid
== END 2022-12-18 11:27 | disposition home or self-care (01) ==
LOC: HO.US 11:26
PROVIDERS: PCP Internal Medicine; Visit Provider Physician Assistant Medical
DX: R10.11 Right upper quadrant pain (principal)
CPT/HCPCS: 76705

== ENCOUNTER 2022-12-18 13:00 | Outpatient (REF) | payer OTHER, SELFPAY ==
[2022-12-18 14:24] LABS: Alanine Aminotransferase 28 U/L (0-31); Albumin Level 4.3 g/dL (3.5-5.0); Alkaline Phosphatase 82 U/L (39-117); Anion Gap 9 (12-20); Aspartate Amino Transferase 21 U/L (5-31); Bilirubin Total 0.5 mg/dL (0.0-1.0); Blood Urea Nitrogen 11 mg/dL (9-16); Calcium 9.2 mg/dL (8.4-10.2); Carbon Dioxide 28 mmol/L (22-29); Chloride 107 mmol/L (96-108); Estimated Glomerular Filt Rate > 60; Glucose Random 91 mg/dL (60-115); Potassium 4.1 mmol/L (3.3-5.1); Sodium 140 mmol/L (135-145); Total Protein 6.7 g/dL (6.5-8.0)
== END 2022-12-18 13:01 | disposition home or self-care (01) ==
LOC: HO.HMGCLDS 13:00
PROVIDERS: PCP Internal Medicine; Visit Provider Physician Assistant Medical
DX: R10.9 Unspecified abdominal pain (principal)
CPT/HCPCS: 36415; 80053

== ENCOUNTER 2022-12-19 00:16 | Emergency (ER) | payer OTHER, SELFPAY ==
--- NOTE | ~2022-12-19 | CT_ITS ---
EXAMINATION: CT ABDOMEN AND PELVIS WITH CONTRAST CLINICAL INFORMATION: Right upper quadrant pain COMPARISON: None TECHNIQUE: Multidetector volumetric images were obtained from the superior aspect of the liver through the pubic symphysis following administration 85 mL of Omnipaque 350 intravenous contrast. Sagittal and coronal reformatted images were obtained on the technologist's workstation. Oral contrast: No This CT examination was performed using dose optimization techniques as appropriate, variously including the following: *Automated exposure control *Adjustment of mA and/or kV according to patient size (this includes techniques or standardized protocols for targeted exams where dose is matched to indication/reason for exam; i.e. extremities or head) *Use of iterative reconstruction technique DLP: 522 mGy-cm FINDINGS: LUNG BASES: The visualized lung bases are unremarkable. LIVER, GALLBLADDER, AND BILIARY TREE: The liver is normal in size, shape, and attenuation. No focal hepatic lesion or biliary ductal dilatation is present. The gallbladder is unremarkable with no evidence of radiopaque gallstones, gallbladder wall thickening, or obvious pericholecystic inflammatory changes. PANCREAS: Unremarkable. SPLEEN: Unremarkable. ADRENAL GLANDS: Unremarkable. KIDNEYS AND URETERS: The kidneys are normal in size, shape, and attenuation. No hydronephrosis, hydroureter, or calculi seen. No perinephric stranding. BLADDER: Collapsed and not adequately evaluated. GASTROINTESTINAL TRACT: No evidence of bowel obstruction or significant wall thickening. The appendix is unremarkable. No free fluid or free air is seen. ABDOMINAL WALL: No significant hernia is appreciated. LYMPH NODES: Normal. VASCULAR: Mild scattered atherosclerotic calcification. PELVIC VISCERA: There is a simple appearing right adnexal cyst measuring up to 4.0 x 2.5 cm in the axial plane; no follow-up imaging recommended. OSSEOUS STRUCTURES: Mild disc space narrowing at L3-L4 with associated endplate osteophytes. CT/CT abdomen pelvis w IV con IMPRESSION: No acute findings identified in the abdomen/pelvis.
[2022-12-19 00:21] VITALS: BP 115/72; PULSE 85; RESP 16; TEMP 36.6; O2SAT 99; BMI 29.2
--- NOTE | 2022-12-19 01:29 | ED.ABDPAIN ---
HPI - Abdominal Pain General Chief Complaint: Abdominal Pain Stated Complaint: gallbladder pain Time Seen by Provider: 12/19/22 00:35 Source: patient and family (Sister) Mode of arrival: ambulatory Limitations: no limitations History of Present Illness HPI narrative: 47-year-old female who presents emergency department for evaluation of right-sided abdominal pain. She states that approximately 2-3 weeks prior she was having very bad heartburn and was using Tums frequently. She states that over the last 1 and half weeks she has been having constant, right-sided abdominal pain. She points to her right upper quadrant area when asked to localize the pain. She states the pain was a constant dull pain. She did have an outpatient ultrasound done on 12/18/2022 which revealed no evidence of cholecystitis or cholelithiasis. She states that last night around 19:00 hours she ate a hot dog. At around 22:00 hours the right upper quadrant pain got worse and became a sharp pain. The pain does radiate to her back. She had associated nausea and has been dry heaving. She denied fever, chills, rhinorrhea, sore throat. She states she has had a chronic cough for weeks but she describes attributes this to a smoker's cough. She states that she has had an increase amount of gas and feels bloated. Patient does have a history breast cancer and she states she had a left lumpectomy, complete chemotherapy in October of 2021 and radiation therapy in April of 2022. Related Data Home Medications Medication Instructions Recorded Confirmed metoprolol tartrate 25 mg tablet 25 mg PO BID 01/14/21 06/22/22 nitroglycerin 0.4 mg sublingual 0.4 mg sublingual Q5M PRN Chest 01/14/21 06/22/22 tablet Pain aripiprazole 10 mg tablet (Abilify) 10 mg PO DAILY psychosis 01/16/22 06/22/22 Allergies Allergy/AdvReac Type Severity Reaction Status Date / Time bee pollen [BEE STINGS] Allergy Severe ANAPHYLAXIS Verified 12/19/22 00:26 Penicillins Allergy Intermediate Unknown Verified 12/19/22 00:26 danazol Allergy Unknown hand Verified 12/19/22 00:26 swelling sertraline [Zoloft] AdvReac Unknown increasedi Verified 12/19/22 00:26 rritability codeine AdvReac Unknown nausea Uncoded 12/19/22 00:26 prilosec AdvReac Unknown bloating Uncoded 12/19/22 00:26 Review of Systems Review of Systems Yes all other systems are reviewed and are negative [facility] Past Medical History [facility] Narrative: Social history: The patient smokes 1/2-1 pack of cigarettes per day times 35 years. She rarely drinks alcohol. She occasionally smokes marijuana. Medical History Diastolic dysfunction Exertional dyspnea Family history of breast cancer gene mutation in first degree relative Hx of cyst of breast Hx of lipoma Invasive ductal carcinoma of left breast Surgical History Endometriosis History of excision of mass History of lumpectomy of left breast Family History Family History Mother Breast cancer, Onset Age: 38 Father CAD (coronary artery disease) Hyperlipidemia HTN (hypertension) History of cardiac defibrillator placement Pacemaker Family/Other Lymphoma Paternal Grandmother Dementia Sister Substance use disorder Mental health disorder Social History Social History Household Members: Family Housing: House Are you a primary rn progressive care unit to a significant other at home: No Do you presently have visiting nurse or other home services: No Alcohol intake: current Alcohol intake frequency: holidays/special occasions only Patient Tobacco Use Status: Current everyday Tobacco user Tobacco use type: Cigarette Cigarette Packs Per Day: 0.5 Cigarettes Per Day: 10.0 e-Cigarette/Vaping Use: Never Used Substance Use Type: Marijuana service: No Current occupational status: unemployed Cognitive needs: No Hearing needs: No Vision needs: No Physical Exam ED Vital Signs: Vital Signs - 24 hr 12/19/22 00:21 Temperature 97.9 F Pulse Rate 85 Respiratory Rate 16 Blood Pressure 115/72 Pulse Oximetry 99 Oxygen Delivery Method Room Air BMI result Body Mass Index 29.2 Const General: cooperative and no acute distress Orientation/consciousness: oriented to person and oriented to place Limitations: no limitations HENMT Head: Yes normal to inspection, Yes normocephalic and Yes atraumatic Ears: external ears normal General nose exam: Normal external nose present Face and sinus: Yes normal facial exam Mouth: Normal oral and palatal mucosa present Throat: Yes posterior oropharynx normal Eyes General: appearance normal, both eyes and all related structures Neck Neck: Yes normal visual inspection, Yes no lymphadenopathy, Yes trachea midline and Yes supple Chest Chest palpation & inspection: normal inspection of the chest and normal palpation of entire chest wall Resp Effort & Inspection: normal respiratory effort and able to speak in complete sentences Auscultation: clear to auscultation bilaterally Cardio Rate: regular rate Rhythm: regular rhythm Heart sounds: S1 normal heart sound present, S2 normal heart sound present and no murmurs GI Inspection: Yes normal to inspection Palpation (GI): Soft to palpation, Tenderness to palpation present (GI) in the RLQ (Mild) and in the RUQ ([id number]) and no guarding Auscultation: normal bowel sounds General: Yes no CVA tenderness Back/Spine/Pelvis Back: no CVA tenderness Skin General skin exam: no rashes or lesions noted Neuro General: oriented to person and oriented to place Cognition (Neuro): normal cognition Motor exam (neuro): 5/5 motor strength present throughout Extrem General: Yes normal to inspection Psych Appearance: grossly normal Speech and movement: Normal speech and movement present Affect: normal affect Attitude: cooperative Medical Decision Making Medical Decision Making MDM Narrative: 47-year-old female who presents emergency department for evaluation of right-sided abdominal pain. Patient has been having right upper quadrant abdominal pain and heartburn symptoms for approximately 2-3 weeks. The pain is been constant over the past 1 and half weeks. The patient ate a hot dog last night at around 19:00 hours for dinner. At around 22:00 hours she developed increased right upper quadrant pain which was sharp and radiated to her back associated with nausea vomiting and a bloated feeling. Vital signs were normal. Physical exam did reveal moderate right upper quadrant tenderness a mild right lower quadrant tenderness. I ordered the nursing staff to access the patient's Port-A-Cath I ordered a CBC, CMP, PT/INR, PTT, lipase, lactic acid urinalysis, urine test, COVID-[address] scan of the abdomen pelvis with IV contrast. Patient's pain and nausea will be treated with Toradol 15 mg IV and Zofran 4 mg IV. She was also ordered to get normal saline x1 L. At the end of my shift, the patient's workup is pending, therefore the patient's care was turned over to my colleague, Dr. Alannah Lockwood. Differential Diagnosis Differential diagnosis includes but is not limited to cholecystitis, appendicitis, pancreatitis, metastatic disease, gastritis, viral syndrome, esophagitis Independent Historian Clinical information obtained from an independent historian. History obtained from or confirmed by: Other (Sister) Discharge Plan Discharge Clinical Impression: Abdominal pain, Nausea & vomiting Patient Disposition: Still a Patient Prescriptions: No Action metoprolol tartrate 25 mg tablet 25 mg PO BID nitroglycerin 0.4 mg tablet, sublingual 0.4 mg sublingual Q5M PRN (Reason: Chest Pain) Rx Instructions: do not exceed 3 doses per episode aripiprazole [Abilify] 10 mg tablet 10 mg PO DAILY
[2022-12-19] MEDS: ondansetron HCL 4 MG/2 ML VIAL IVPUSH (01:48)
[2022-12-19] MEDS: Ketorolac Tromethamine 15 MG/ML VIAL IVPUSH (01:48)
[2022-12-19 01:49] LABS: MANUAL DIFF FLAG NO
[2022-12-19] MEDS: 0.9 % Sodium Chloride 1,000 ML 999 ML IV (01:49)
[2022-12-19 01:53] LABS: Basophils Percent Auto 0.4 % (0-2); Hematocrit 40.7 % (37.0-47.0); Imm Gran Abs Auto 0.04 X10*3/uL (0.00-0.03); Imm Gran Pct Auto 0.5 % (0.0-0.4); Lymphocytes Absolute Auto 2.5 X10*3/uL (1.2-4.9); Lymphocytes Percent Auto 29.7 % (20-40); Mean Corpuscular HGB Conc 34.4 g/dl (31.0-35.0); Mean Corpuscular Hemoglobin 29.8 pg (27.0-33.0); Mean Corpuscular Volume 86.6 fL (80.0-98.0); Mean Platelet Volume 8.9 fL (9.4-12.3); Monocytes Absolute Auto 0.8 X10*3/uL (0.1-1.2); Monocytes Percent Auto 9.1 % (2-11); Neutrophils Absolute Auto 5.1 x10*3/uL (2.0-8.3); Neutrophils Percent Auto 60.3 % (45-73); Platelet Count 203 X10*3/uL (160-400); Red Cell Distribution Width 13.3 % (11.0-16.0); White Blood Count 8.4 X10*3/uL (4.8-10.8)
[2022-12-19 01:59] LABS: INTERNATIONAL NORM RATIO 0.9 (0.9-1.1); Prothrombin Time 10.7 SEC (10.0-13.1)
[2022-12-19 02:01] LABS: Lactic Acid 1.4 mmol/L (0.5-2.0)
[2022-12-19 02:02] LABS: Partial Thromboplastin Time 31.2 SEC (26.0-36.4)
[2022-12-19 02:05] LABS: COVID-19 Test Negative (Negative); IDNOW Serial# 6674DD1D
[2022-12-19 02:06] LABS: Alanine Aminotransferase 27 U/L (0-31); Albumin Level 4.2 g/dL (3.5-5.0); Alkaline Phosphatase 86 U/L (39-117); Anion Gap 13 (12-20); Aspartate Amino Transferase 17 U/L (5-31); Bilirubin Total 0.3 mg/dL (0.0-1.0); Blood Urea Nitrogen 10 mg/dL (9-16); Calcium 9.1 mg/dL (8.4-10.2); Carbon Dioxide 26 mmol/L (22-29); Chloride 107 mmol/L (96-108); Creatinine Clr Calc Pharmacy 81.3; Estimated Glomerular Filt Rate > 60; Glucose Random 98 mg/dL (60-115); Lipase 38 U/L (8-78); Potassium 3.9 mmol/L (3.3-5.1); Sodium 142 mmol/L (135-145); Total Protein 6.8 g/dL (6.5-8.0)
[2022-12-19 02:15] VITALS: BP 101/64; PULSE 72; RESP 10; TEMP 36.7; O2SAT 96
[2022-12-19 02:17] LABS: Appearance Urine Clear; Color Urine Yellow; Glucose Urine UA Negative (Negative); Leukocyte Esterase Urine Small (1+) (Negative); Nitrite Urine Negative (Negative); Specific Gravity - Urine <= 1.005 (1.005-1.025); UMIC TRIGGER UACC YES; Urine Blood Negative (Negative); Urine Ketones Negative (Negative); Urine Protein Negative (Neg-Trace)
[2022-12-19 02:19] LABS: UPreg QC Valid YES; Urine Pregnancy NEGATIVE (NEGATIVE)
[2022-12-19 02:22] LABS: Bacteria Urine None Seen (None Seen); Hyaline Casts Urine 0-2 /LPF (0-2); RBC Urine 0-2 /HPF (0-2); Squamous Epithelial Cell Urine 0-2 /HPF (0-2); UACC Culture Trigger YES
[2022-12-19] MEDS: iohexoL 350 MG/ML 100 ML INFUS..BTL 85 ML IV (02:41)
[2022-12-19] MEDS: Morphine Sulfate 4 MG/ML CARTRIDGE IVPUSH (03:38)
--- NOTE | 2022-12-19 03:48 | PC.NURSE ---
Pt medicated as ordered. Port-a-cath access removed. Pt tolerated well. Discharge instructions reviewed with pt. Pt verbalizes understanding. Pt able to ambulate with steady gait.
== END 2022-12-19 03:49 | disposition home or self-care (01) ==
PROVIDERS: Emergency Medicine Emergency Medical Services; Emergency Provider Emergency Medicine; PCP Internal Medicine
DX: R10.11 Right upper quadrant pain (principal); R10.31 Right lower quadrant pain; R11.2 Nausea with vomiting, unspecified; Z20.822 Contact with and (suspected) exposure to COVID-19; F17.210 Nicotine dependence, cigarettes, uncomplicated; F12.90 Cannabis use, unspecified, uncomplicated; Z85.3 Personal history of malignant neoplasm of breast; Z79.899 Other long term (current) drug therapy
CPT/HCPCS: 36415; 74177; 80053; 81001; 81025; 83605; 83690; 85025; 85610; 85730; 87086; 87635; 96361; 96374; 96375; 99284; J1885; J2270; J2405; Q9967

== ENCOUNTER → 2022-12-28 13:28 | Outpatient (BNVA) | payer OTHER, SELFPAY | PROVIDERS: PCP Internal Medicine; Visit Provider Physician Assistant | DX: Z01.818 Encounter for other preprocedural examination (principal); R12 Heartburn | CPT/HCPCS: 99202 ==

== ENCOUNTER 2022-12-29 21:50 | Outpatient (REF) | payer OTHER, SELFPAY | END 2022-12-29 21:51 | disposition home or self-care (01) | LOC: HO.LNP 21:50 | PROVIDERS: Visit Provider Physician Assistant | DX: A04.8 Other specified bacterial intestinal infections (principal) | CPT/HCPCS: 87338 ==

== ENCOUNTER 2023-08-10 13:47 | Outpatient (REF) | payer OTHER, SELFPAY ==
--- NOTE | ~2023-08-10 | MM_ITS ---
EXAMINATION: MM DIAGNOSTIC DIGITAL BREAST TOMOSYNTHESIS, BILATERAL CLINICAL INFORMATION: Triple-negative left breast cancer diagnosed in 2020. Year #2 follow-up left breast. COMPARISON: Mammography: 08/19/2022, 03/13/2021, and studies dating back to 2009. TECHNIQUE: Digital breast tomosynthesis is performed in both the craniocaudal and mediolateral oblique views along with computer-aided detection (CAD). Synthesized 2D images are generated from the tomosynthesis. In addition, 2-D spot magnification left exaggerated CC and 90 degree mediolateral views were also included. FINDINGS: There are scattered areas of fibroglandular density (ACR BI-RADS breast composition Category b). There is a stable postoperative appearance to the left breast, with scarring in the upper outer quadrant, trabecular thickening and skin thickening from radiation, and a slightly smaller appearance to the left breast in comparison with the right. There are no developing suspicious masses, suspicious grouped calcifications, or developing areas of architectural distortion in either breast. The overall parenchymal pattern is stable from prior exams. MM/MM tomosynthesis diagnostic BI IMPRESSION: Stable postoperative and post treatment related changes to the left breast, with no new findings suspicious for malignancy. No suspicious findings right breast. Recommend continuing yearly mammography of both breasts to establish a 3 year post operative stability of the left breast. ASSESSMENT: BI-RADS BI-RADS 2 - Benign Findings RECOMMENDATION: 12 month diagnostic follow up Results were provided to the patient at time of visit by the technologist. This patient's information was entered into a reminder system with a target due date for their next mammogram.
--- NOTE | ~2023-08-10 | MM_ITS ---
EXAMINATION: BONE DENSITOMETRY CLINICAL INDICATION: Osteopenia. COMPARISON: This is the patient's baseline examination. TECHNIQUE: Using a [employer] DXA System (software version: 13.1) manufactured by [employer], dual-energy x-ray absorptiometry was performed of the lumbar spine and left hip. The images are of good technical quality. Summary results are attached. FINDINGS: AP SPINE L1-L4: BMD 1.043 g/cm2, Z-score -1.1, T-score -1.1, osteopenia. LEFT FEMUR, NECK: BMD 0.865 g/cm2, Z-score -0.7, T-score -1.2, osteopenia. LEFT FEMUR, TOTAL: BMD 0.932 g/cm2, Z-score -0.4, T-score -0.6, normal. IDENTIFIED RISK FACTORS: Current smoker. Menopause. HISTORY OF FRACTURE: None listed. MEDICATIONS: Calcium supplement and/or multivitamin. Vitamin D. MM/XR DEXA axial skeleton IMPRESSION: 1. DIAGNOSIS: Osteopenia based on the lowest T-score value of -1.2 in the femoral neck applying World Health Organization criteria. 2. 10-YEAR FRACTURE RISK PREDICTION, FRAX: Major osteoporotic fracture (clinical spine, forearm, hip or shoulder) 4.0%. Hip fracture 0.4%. 3. Treatment Recommendations: NOF guidelines recommend consideration for treatment in postmenopausal women and men age 50 and older presenting with the following: -A hip or vertebral (clinical or morphometric) fracture. -T-score less than or equal to -2.5 at the femoral neck or spine after appropriate evaluation to exclude secondary causes. -Low bone mass at the hip or spine and a 10-year fracture probability by FRAX of greater than or equal to 3% for hip fracture or greater than or equal to 20% for major osteoporotic fracture based on the [place] adapted WHO algorithm. 4. Other Recommendations: All treatment decisions require clinical judgment and consideration of individual patient factors, including patient preferences, comorbidities, previous drug use, risk factors not captured in the FRAX model (e.g. frailty, falls, vitamin D deficiency, increased bone turnover, interval significant decline in bone density) and possible under or overestimation of fracture risk by FRAX. Additional medical evaluation for secondary cause of low bone mineral density may be appropriate. FUTURE SCAN RECOMMENDATION: People with diagnosed cases of osteoporosis or at high risk for fracture should have regular bone mineral density tests. For patients eligible for Medicare, routine testing is allowed once every 2 years. The testing frequency can be increased to one year for patients who have rapidly progressing disease, those who are receiving or discontinuing medical therapy to restore bone mass, or have additional risk factors.
== END 2023-08-10 13:48 | disposition home or self-care (01) ==
LOC: HO.MAMMO 13:47
PROVIDERS: PCP Internal Medicine; Visit Provider Internal Medicine Medical Oncology
DX: Z13.820 Encounter for screening for osteoporosis (principal); Z78.0 Asymptomatic menopausal state; Z85.3 Personal history of malignant neoplasm of breast
CPT/HCPCS: 77062; 77066; 77080

== ENCOUNTER → 2023-08-10 14:00 | Outpatient (BNV) | payer OTHER, SELFPAY | PROVIDERS: PCP Internal Medicine; Visit Provider Radiology Diagnostic Radiology | DX: R92.323 Mammographic fibroglandular density, bilateral breasts (principal) | CPT/HCPCS: 77062; 77066 ==

== ENCOUNTER 2023-08-12 14:36 | Outpatient (AMB) | payer OTHER, SELFPAY ==
[2023-08-12 15:07] VITALS: BP 100/70; PULSE 88; O2SAT 98; BMI 29.7
--- NOTE | 2023-08-12 15:07 | MHC.PC.OV ---
Vital Signs 08/12/23 15:07 Height 5 ft 2 in Weight 162 lb 8 oz BMI 29.7 BP 100/70 Blood Pressure Location Rt brachial Position Sitting Pulse 88 Pulse Source Pulse Oximeter Pulse Oximetry (%) 98 Oxygen Delivery Method Room Air Intake Visit Reasons: Abdominal pain f/u urgent care Intake Note: pt was seen at [facility] in [place] and abd pain yesterday and are recommend CT scan pt says the pain is the top of her abd going across the top of her stomach pt says it has been their for about a week but she has had off and on for a few months and has no changes when she eats and its tender to touch Allergies bee pollen [BEE STINGS] Allergy (Severe, Verified 08/12/23 16:01) ANAPHYLAXIS Penicillins Allergy (Intermediate, Verified 08/12/23 16:01) Unknown danazol Allergy (Unknown, Verified 08/12/23 16:01) hand swelling sertraline [Zoloft] Adverse Reaction (Unknown, Verified 08/12/23 16:01) increasedi rritability codeine Adverse Reaction (Unknown, Uncoded 08/12/23 16:01) nausea prilosec Adverse Reaction (Unknown, Uncoded 08/12/23 16:01) bloating Medication List - Last Reconciled 08/12/23 by Carlyn Enriquez MD aripiprazole (Abilify) 10 mg PO DAILY Bacillus coagulans (Probiotic (B. coagulans)) cells PO blood sugar diagnostic (FreeStyle Lite Strips) check fasting glucose qd ac blood-glucose meter (FreeStyle [place] Lite kit) check fasting glucose once a day [hydroxyzine HCl 10 mg PO DAILY PRN] metoprolol tartrate 25 mg PO BID multivit with min-folic acid 0.4 mg (One-A-Day Women's 50 Plus) tabs PO nitroglycerin 0.4 mg sublingual Q5M PRN pantoprazole 40 mg PO DAILY 30 days Tobacco use date assessed: 08/12/23 Dental Screening Dental Screen Date: 08/12/23 Did you have a dental visit in the last 12 months?: Yes Did you have a dental problem in the last 6 months where you did not have access to dental care?: No Was dental information given to patient?: Patient has dentist HPI Abdominal pain f/u urgent care HPI Details 47-year-old lady here today complaining 1 month history of recurrent epigastric pain accompanied abdominal bloating, unrelated to food intake. She has been taking pantoprazole which has not afforded any relief. Denies any change in bowel movements except for passes of occasional loose stools. Denies any blood in stool or melena . [facility] Medical History Impaired fasting glucose Skin lesion of left upper extremity Diastolic dysfunction Hx of lipoma Hx of cyst of breast Invasive ductal carcinoma of left breast Family history of breast cancer gene mutation in first degree relative Exertional dyspnea Surgical History History of lumpectomy of left breast Endometriosis History of excision of mass Family History Mother Breast cancer, Onset Age: 38 Father CAD (coronary artery disease) Hyperlipidemia HTN (hypertension) History of cardiac defibrillator placement Pacemaker Family/Other Lymphoma Paternal Grandmother Dementia Sister Substance use disorder Mental health disorder Social History Household Members: Family Housing: House Are you a primary child care education coordinator to a significant other at home: No Do you presently have visiting nurse or other home services: No Alcohol intake: current Alcohol intake frequency: holidays/special occasions only Patient Tobacco Use Status: Current everyday Tobacco user Tobacco use type: Cigarette Cigarette Packs Per Day: 0.5 Cigarettes Per Day: 10.0 e-Cigarette/Vaping Use: Never Used Substance Use Type: Marijuana service: No Current occupational status: unemployed Cognitive needs: No Hearing needs: No Vision needs: No Female Reproductive History Menstrual Age of Menarche: 10 Questionnaire Thrive Questionnaire Date Thrive assessed: 02/02/23 DANA-7 AMB Questionnaire DANA-7 Date DANA - 7 assessed: 02/02/23 Source: Developed by Drs. Jake Rizzo, Julissa Langley, Geronimo Dexter and colleagues, with an educational simone from [employer]. Review of Systems Const All systems reviewed & are unremarkable except as noted in HPI and below Physical exam (Primary Care) Vital Signs: Last Vital Signs Pulse 88 08/12/23 15:07 BP 100/70 08/12/23 15:07 Pulse Ox 98 08/12/23 15:07 Oxygen Delivery Method Room Air 08/12/23 15:07 BMI result Body Mass Index 29.7 Tobacco/Smoking Status: Tobacco use Status Tobacco use date assessed 08/12/23 08/12/23 15:16 Patient Tobacco Use Status Current everyday Tobacco 08/12/23 15:09 Tobacco use type Cigarette 08/12/23 15:09 e-Cigarette/Vaping Use Never Used 08/12/23 15:09 Thrive Assessment: Date of Thrive Assessment Date Thrive assessed 02/02/23 08/12/23 15:09 Const General: no acute distress, alert, awake and Physically active Nutritional Appearance: overweight Orientation/consciousness: patient oriented x3 Neck Neck: Yes full ROM, Yes no lymphadenopathy and Yes supple Resp Auscultation: clear to auscultation bilaterally Cardio Other: S1-S2 present regular rate and rhythm GI Inspection: Yes normal to inspection Palpation (GI): Soft to palpation, Tenderness to palpation present (GI) in the epigastrum, no guarding, not rigid and no masses General: Yes no CVA tenderness Back/Spine/Pelvis Back: no CVA tenderness Skin General skin exam: no rashes or lesions noted Neuro General: patient oriented x3 Results AMB Urinalysis, Automated UA Leukoctes 0 Jonnathan/uL Last Edit by Laura Baptiste CMA on 08/12/23 15:46 UA Nitrite Negative Last Edit by Laura Baptiste CMA on 08/12/23 15:46 UA Urobilinogen 0.2 mg/dL Last Edit by Laura Baptiste CMA on 08/12/23 15:46 UA Protein 0 mg/dL Last Edit by Laura Baptiste CMA on 08/12/23 15:46 UA pH 6.0 Last Edit by Laura Baptiste CMA on 08/12/23 15:46 UA Blood 0 Gaurang/uL Last Edit by Laura Baptiste CMA on 08/12/23 15:46 UA Specific English 1.030 Last Edit by Laura Baptiste CMA on 08/12/23 15:46 UA Ketone Negative Last Edit by Laura Baptiste CMA on 08/12/23 15:46 UA Bilirubin 1 mg/dL Last Edit by Laura Baptiste CMA on 08/12/23 15:46 UA Glucose 0 mg/dL Last Edit by Laura Baptiste CMA on 08/12/23 15:46 Results Reviewed Results Reviewed: Laboratory Last Values Urine pH (Auto) 6.0 08/12/23 15:44 Specific English (Auto) 1.030 08/12/23 15:44 Urine Protein (Auto) 0 mg/dL 08/12/23 15:44 Glucose (UA)(Auto) 0 mg/dL 08/12/23 15:44 Urine Ketones (Auto) Negative 08/12/23 15:44 Urine Blood (Auto) 0 Gaurang/uL 08/12/23 15:44 Urine Nitrite (Auto) Negative 08/12/23 15:44 Urine Bilirubin (Auto) 1 mg/dL 08/12/23 15:44 Urine Urobilinogen (Auto) 0.2 mg/dL 08/12/23 15:44 Leukocyte Esterase (Auto) 0 Jonnathan/uL 08/12/23 15:44 Assessment and Plan Assessment & Plan (1) Epigastric pain: Code(s): R10.13 - Epigastric pain Plan: Urinalysis ordered showed unremarkable findings. Ordered a CT of abdomen and pelvis without contrast, as well as amylase/lipase levels (2) Abdominal bloating: Code(s): R14.0 - Abdominal distension (gaseous) Plan: UA negative for infection. Ordered CT of abdomen and pelvis without contrast Orders: Orders Lipase 08/13/23 R10.13 - Epigastric pain AMB Urinalysis Automated 08/12/23 Z13.9 - Encounter for screening, unspecified Amylase 08/13/23 R10.13 - Epigastric pain CT abdomen pelvis wo IV con 08/12/23 R10.13 - Epigastric pain, R14.0 - Abdominal distension (gaseous) Coding Level of Care Code Est Pt Level 3 (49902) Diagnoses Epigastric pain R10.13 Abdominal bloating R14.0
== END 2023-08-12 15:58 | disposition home or self-care (01) ==
PROVIDERS: PCP Internal Medicine; Visit Provider Internal Medicine
DX: R10.13 Epigastric pain (principal); R14.0 Abdominal distension (gaseous)
CPT/HCPCS: 81003; 99213

== ENCOUNTER 2023-08-13 09:26 | Outpatient (REF) | payer OTHER, SELFPAY ==
[2023-08-13 11:19] LABS: MANUAL DIFF FLAG NO
[2023-08-13 12:01] LABS: Basophils Percent Auto 0.5 % (0-2); Hematocrit 40.9 % (37.0-47.0); Hemoglobin 13.7 g/dl (12.0-16.0); Imm Gran Abs Auto 0.06 X10*3/uL (0.00-0.03); Imm Gran Pct Auto 0.9 % (0.0-0.4); Lymphocytes Absolute Auto 1.4 X10*3/uL (1.2-4.9); Lymphocytes Percent Auto 20.8 % (20-40); Mean Corpuscular HGB Conc 33.5 g/dl (31.0-35.0); Mean Corpuscular Hemoglobin 28.2 pg (27.0-33.0); Mean Corpuscular Volume 84.2 fL (80.0-98.0); Mean Platelet Volume 9.3 fL (9.4-12.3); Monocytes Absolute Auto 0.6 X10*3/uL (0.1-1.2); Monocytes Percent Auto 9.5 % (2-11); Neutrophils Absolute Auto 4.6 x10*3/uL (2.0-8.3); Neutrophils Percent Auto 68.3 % (45-73); Platelet Count 196 X10*3/uL (160-400); Red Blood Count 4.86 X10*6/uL (4.20-5.50); White Blood Count 6.7 X10*3/uL (4.8-10.8)
[2023-08-13 12:27] LABS: Alanine Aminotransferase 40 U/L (0-31); Albumin Level 3.9 g/dL (3.5-5.0); Alkaline Phosphatase 90 U/L (39-117); Amylase 91 U/L (28-100); Anion Gap 13 (12-20); Aspartate Amino Transferase 28 U/L (5-31); Bilirubin Total 0.3 mg/dL (0.0-1.0); Blood Urea Nitrogen 9 mg/dL (9-16); Calcium 9.2 mg/dL (8.4-10.2); Carbon Dioxide 23 mmol/L (22-29); Chloride 105 mmol/L (96-108); Estimated Glomerular Filt Rate > 60; Glucose Random 86 mg/dL (60-115); Lipase 31 U/L (8-78); Potassium 3.8 mmol/L (3.3-5.1); Sodium 137 mmol/L (135-145); Total Protein 6.9 g/dL (6.5-8.0)
[2023-08-14 08:54] LABS: CA 27.29 71 U/mL (<38)
== END 2023-08-13 09:27 | disposition home or self-care (01) ==
LOC: HO.HMGCLDS 09:26
PROVIDERS: Absent Provider Internal Medicine Medical Oncology; PCP Internal Medicine; Visit Provider Internal Medicine
DX: R10.13 Epigastric pain (principal); C50.412 Malignant neoplasm of upper-outer quadrant of left female breast
CPT/HCPCS: 36415; 80053; 82150; 83690; 85025; 86300

== ENCOUNTER 2023-08-22 18:46 | Emergency (ER) | payer OTHER, SELFPAY ==
--- NOTE | ~2023-08-22 | CT_ITS ---
EXAMINATION: CT ABDOMEN AND PELVIS WITH CONTRAST CLINICAL INFORMATION: Epigastric pain. Family history of pancreatic cancer. COMPARISON: 12/19/2022 TECHNIQUE: Multidetector volumetric images were obtained from the superior aspect of the liver through the pubic symphysis following administration 85 mL of Omnipaque 350 intravenous contrast. Sagittal and coronal reformatted images were obtained on the technologist's workstation. Oral contrast: No This CT examination was performed using dose optimization techniques as appropriate, variously including the following: *Automated exposure control *Adjustment of mA and/or kV according to patient size (this includes techniques or standardized protocols for targeted exams where dose is matched to indication/reason for exam; i.e. extremities or head) *Use of iterative reconstruction technique DLP: 545 mGy-cm FINDINGS: LUNG BASES: There is a round solid 4 mm nodule at the left lower lobe on image 98 of series 4. A smaller 3 mm subpleural nodule is present in the right lung base in this region. A few smaller micronodules are also present, new as compared to prior. LIVER, GALLBLADDER, AND BILIARY TREE: There or multiple peripherally enhancing lesions in the liver, mostly in the left hepatic lobe. The largest cluster of these lesions measures 5.1 x 4 x 5.5 cm (transverse x AP x craniocaudal) within hepatic segment 4A and 2. A smaller 4 cm cluster of lesions is present in the more medial aspect of hepatic segment 2. A 1.5 cm lesion is present within the anterior aspect of segment 5. All of these lesions are new as compared to prior. The background hepatic parenchyma is relatively hypoattenuating as can be seen with steatosis. Hepatic contour is normal. No biliary ductal dilatation. The gallbladder is unremarkable with no evidence of radiopaque gallstones, gallbladder wall thickening, or obvious pericholecystic inflammatory changes. PANCREAS: Along the cephalad margin of the pancreatic body, there is a rounded hypoattenuating soft tissue focus measuring 1.3 x 1.4 x 1.5 cm which may correspond to a new pancreatic lesion or an adjacent enlarged lymph node. This is new as compared to prior. Pancreas is otherwise normal in appearance. No ductal dilatation. SPLEEN: Unremarkable. ADRENAL GLANDS: Unremarkable. KIDNEYS AND URETERS: The kidneys are normal in size, shape, and attenuation. No hydronephrosis, hydroureter, or calculi seen. No perinephric stranding. BLADDER: Unremarkable. GASTROINTESTINAL TRACT: Stomach, small bowel, and colon are normal in caliber. No bowel wall thickening or surrounding inflammatory changes. Appendix is normal. No intraperitoneal free fluid or free air. ABDOMINAL WALL: No significant hernia is appreciated. LYMPH NODES: A few borderline enlarged retroperitoneal nodes are identified including the 1 cm periaortic node just cephalad to the left renal vein. No appreciable mesenteric adenopathy. VASCULAR: Minimal calcific atherosclerosis in the abdominal aorta and iliac arteries. No aneurysmal dilatation. PELVIC VISCERA: Uterus is unremarkable. There is a 4 cm fluid attenuation right adnexal cyst which is not appreciably changed as compared to prior. No recommended imaging follow up. OSSEOUS STRUCTURES: No fracture. Left convex lumbar scoliosis is again noted. No aggressive osseous lesions. CT/CT abdomen pelvis w IV con IMPRESSION: 1. Multiple new peripherally enhancing hepatic lesions, most concerning for metastatic disease. 2. A 1.5 cm hypoattenuating soft tissue focus along the cephalad margin of the pancreatic body is new as compared to prior and may correspond to an adjacent enlarged lymph node or a primary pancreatic lesion. 3. A few new pulmonary nodules at the lung bases which are concerning for metastatic disease in the context of the new hepatic lesions. 4. Borderline enlarged retroperitoneal lymph nodes. This critical result was discussed by telephone with Dr. Bonilla on 08/23/2023 at 12:20 AM.
--- NOTE | ~2023-08-22 | XR_ITS ---
EXAMINATION: XR CHEST CLINICAL INFORMATION: Portable access COMPARISON: 08/09/2019 TECHNIQUE: Frontal view of the chest was obtained. FINDINGS: Right IJ port catheter tip lies in the region of the distal SVC. Lung volumes are symmetric. No focal consolidation is seen. No evidence of pneumothorax, pleural effusion, or pulmonary edema. The cardiomediastinal contour is unremarkable. No acute osseous findings are seen. XR/XR chest 1V IMPRESSION: Right IJ port catheter tip in the region of the distal SVC.
[2023-08-22 18:56] VITALS: BP 123/85; PULSE 99; RESP 18; TEMP 36.5; O2SAT 98; BMI 30.3
--- NOTE | 2023-08-22 18:56 | ED_ITS ---
HPI - General Adult General Chief complaint: Abdominal Pain Stated complaint: upper abd pain, unk labs, wants panc/liver lookd @ Time Seen by Provider: 08/22/23 22:01 Source: patient Mode of arrival: ambulatory Limitations: no limitations History of Present Illness HPI narrative: Patient with chronic recurrent epigastric pain had his CT scan on ultrasound done in 12/17 which was negative pain is constant epigastric areas patient for last 3 months no relation with food no nausea no vomiting nose weight loss patient does have a strong family history of breast cancer. Also history of pancreatic cancer in her cousins but patient's previous CT scan on 12/17 was negative patient denied lack of appetite no weight loss no radiation of pain to the back Related Data Home Medications Medication Instructions Recorded Confirmed metoprolol tartrate 25 mg tablet 25 mg PO BID 01/14/21 08/12/23 nitroglycerin 0.4 mg sublingual 0.4 mg sublingual Q5M PRN Chest 01/14/21 08/12/23 tablet Pain aripiprazole 10 mg tablet (Abilify) 10 mg PO DAILY psychosis 01/16/22 08/12/23 hydroxyzine HCl 10 mg PO DAILY PRN Anxiety 02/15/23 08/12/23 Bacillus coagulans 250 million cell PO 08/12/23 08/12/23 cell chewable tablet (Probiotic (B. coagulans)) multivitamin with minerals-folic tab PO 08/12/23 08/12/23 acid 0.4 mg tablet (One-A-Day Women's 50 Plus) Previous Rx's Medication Instructions Recorded blood-glucose meter (FreeStyle #1 ea 12/25/22 [place] Lite kit) pantoprazole 40 mg tablet,delayed 40 mg PO DAILY 30 days #30 tabs 12/28/22 release blood sugar diagnostic (FreeStyle #200 ea 07/23/23 Lite Strips) ondansetron 4 mg disintegrating 4 mg PO Q6-8H PRN nausea and 08/23/23 tablet vomiting #10 tabs oxycodone 5 mg tablet 5 mg PO Q6H PRN pain #20 tabs 08/23/23 Allergies Allergy/AdvReac Type Severity Reaction Status Date / Time bee pollen [BEE STINGS] Allergy Severe ANAPHYLAXIS Verified 08/12/23 16:01 Penicillins Allergy Intermediate Unknown Verified 08/12/23 16:01 danazol Allergy Unknown hand Verified 08/12/23 16:01 swelling sertraline [Zoloft] AdvReac Unknown increasedi Verified 08/12/23 16:01 rritability codeine AdvReac Unknown nausea Uncoded 08/12/23 16:01 prilosec AdvReac Unknown bloating Uncoded 08/12/23 16:01 Review of Systems 2 Review of Systems: Yes all other systems are reviewed and are negative PMFSH Past Medical History Medical History Impaired fasting glucose Skin lesion of left upper extremity Diastolic dysfunction Hx of lipoma Hx of cyst of breast Invasive ductal carcinoma of left breast Family history of breast cancer gene mutation in first degree relative Exertional dyspnea Surgical History History of lumpectomy of left breast Endometriosis History of excision of mass Family History Family History Mother Breast cancer, Onset Age: 38 Father CAD (coronary artery disease) Hyperlipidemia HTN (hypertension) History of cardiac defibrillator placement Pacemaker Family/Other Lymphoma Paternal Grandmother Dementia Sister Substance use disorder Mental health disorder Social History Social History Household Members: Family Housing: House Are you a primary personal care worker to a significant other at home: No Do you presently have visiting nurse or other home services: No Alcohol intake: current Alcohol intake frequency: does not drink Patient Tobacco Use Status: Current everyday Tobacco user Tobacco use type: Cigarette Cigarette Packs Per Day: 0.5 Cigarettes Per Day: 10.0 Smoked in Last 30 Days: No e-Cigarette/Vaping Use: Never Used Use of substances other than those prescribed or required for medical reasons: No Substance Use Type: Marijuana Advance Directives: Yes Advance Directives on File: Yes Advance Directives Date on File: 11/26/21 Patient : No service: No Current occupational status: unemployed Cognitive needs: No Hearing needs: No Vision needs: No Physical Exam ED Vital Signs: Vital Signs - 24 hr 08/22/23 18:56 08/22/23 21:23 08/23/23 00:22 Temperature 97.7 F 97.7 F 97.9 F Pulse Rate 99 82 79 Respiratory Rate 18 14 16 Blood Pressure 123/85 114/72 108/68 Pulse Oximetry 98 97 95 Oxygen Delivery Method Room Air Room Air Room Air BMI result Body Mass Index 30.3 Appearance: Alert. Oriented X3. No acute distress. Eyes: No pallor or icterus ENT: Pharynx normal. Oral Mucosa moist Neck: Normal inspection. Neck supple. CVS: Normal heart rate and rhythm. Pulses normal. Respiratory: No respiratory distress. Equal air entry bilateral, no wheezing/rales/rhonchi Abdomen: Soft , tenderness in epigastric area no rebound tenderness or guarding. Bowel sounds are present, no mass palpable, no CVA tenderness Skin: Skin warm and dry. Normal skin color. Normal skin turgor. Extremities: No lower extremity edema. No calf tenderness Neuro: Oriented X 3. No motor deficit. Course Course Course Narrative: This is an RME: Additional HPI, ROS, PE not included below will be deferred to primary provider. 47 year old female presents w/ epigastric pain X weeks worsening. Not a drinker. No nausea or vomiting. No fevers, chills, cp, sob Plan- labs, UA Medications Administered Discontinued Medications Generic Name Dose Route Start Last Admin Trade Name Freq PRN Reason Stop Dose Admin Al Hydroxide/Mg Hydroxide 30 ml 08/22/23 22:43 08/22/23 23:30 Magnesium Hydrox/Alum Hydrox 30 Ml Oral.Susp PO 08/22/23 22:44 30 ml ONCE ONE Administration Iohexol 85 ml 08/22/23 23:49 08/22/23 23:50 Iohexol 350 Mg/Ml 100 Ml Infus..Btl IV 08/22/23 23:50 85 ml ONCE ONE Administration Medical Decision Making Medical Decision Making [facility] Narrative: Patient with pancreatic mass with Mets in the liver likely primary pancreatic cancer. Patient does have a strong family history of pancreatic cancer. Will discharge patient home on pain med and advised to follow with oncology Differential Diagnosis Differential Diagnoses: The differential diagnosis associated with the presentation includes Similarly stone/gastritis/pancreatic ca Lab Data [facility] Lab Attestation statement: I reviewed the patient's lab results. 08/22/23 19:10 08/22/23 19:10 Labs: Lab Results 08/22/23 08/22/23 Range/Units 19:10 21:47 WBC 7.8 (4.8-10.8) X10*3/uL RBC 5.01 (4.20-5.50) X10*6/uL Hgb 14.3 (12.0-16.0) g/dl Hct 41.9 (37.0-47.0) % MCV 83.6 (80.0-98.0) fL MCH 28.5 (27.0-33.0) pg MCHC 34.1 (31.0-35.0) g/dl RDW 14.0 (11.0-16.0) % Plt Count 201 (160-400) X10*3/uL MPV 8.8 L (9.4-12.3) fL Immature Gran % (Auto) 0.5 H (0.0-0.4) % Neut % (Auto) 64.7 (45-73) % Lymph % (Auto) 26.5 (20-40) % [place] % (Auto) 7.4 (2-11) % Eos % (Auto) 0.4 (0-4) % Baso % (Auto) 0.5 (0-2) % Lymph # (Auto) 2.1 (1.2-4.9) X10*3/uL [place] # (Auto) 0.6 (0.1-1.2) X10*3/uL Eos # (Auto) 0.0 (0.0-0.4) X10*3/uL Baso # (Auto) 0.0 (0.0-0.2) X10*3/uL Abs Immat Gran (auto) 0.04 H (0.00-0.03) X10*3/uL Absolute Neuts (auto) 5.1 (2.0-8.3) x10*3/uL Absolute Nucleated RBC 0.000 (0.0-0.012) X10*3/uL Nucleated RBC % (auto) 0.0 (0.0-0.2) /100WBC Sodium 141 (135-145) mmol/L Potassium 3.6 (3.3-5.1) mmol/L Chloride 106 (96-108) mmol/L Carbon Dioxide 24 (22-29) mmol/L Anion Gap 15 (12-20) BUN 10 (9-16) mg/dL Creatinine 0.78 (0.5-1.4) mg/dL Estim Creat Clear Calc 82.8 Estimated GFR > 60 Random Glucose 139 H (60-115) mg/dL Calcium 9.8 D (8.4-10.2) mg/dL Magnesium 1.9 (1.6-2.6) mg/dL Total Bilirubin 0.2 (0.0-1.0) mg/dL AST 37 H (5-31) U/L ALT 46 H (0-31) U/L Alkaline Phosphatase 85 (39-117) U/L Total Protein 7.3 (6.5-8.0) g/dL Albumin 4.2 (3.5-5.0) g/dL Lipase 52 (8-78) U/L Urine Color Yellow Urine Appearance Clear Urine pH 5.5 (5.0-9.0) Ur Specific [place] 1.025 (1.005-1.025) Urine Protein Negative (Neg-Trace) mg/dL Urine Glucose (UA) Negative (Negative) mg/dL Urine Ketones Negative (Negative) mg/dL Urine Blood Negative (Negative) Urine Nitrite Negative (Negative) Ur Leukocyte Esterase Negative (Negative) COVID-19 (JAYDA) Negative (Negative) COVID-19 Clin Com See Note Radiology Impression Discussion of test interpretation with radiology: I have reviewed the radiologist's reading. Radiologist Impression: CT/CT abdomen pelvis w IV con IMPRESSION: 1. Multiple new peripherally enhancing hepatic lesions, most concerning for metastatic disease. 2. A 1.5 cm hypoattenuating soft tissue focus along the cephalad margin of the pancreatic body is new as compared to prior and may correspond to an adjacent enlarged lymph node or a primary pancreatic lesion. 3. A few new pulmonary nodules at the lung bases which are concerning for metastatic disease in the context of the new hepatic lesions. 4. Borderline enlarged retroperitoneal lymph nodes. This critical result was discussed by telephone with Dr. Bonilla on 08/23/2023 at 12:20 AM. Discharge Plan Discharge Clinical Impression: Pancreatic cancer Patient Disposition: Home, Self-Care Instructions: Pancreatic Cancer (DC) Additional Instructions: Likely you have pancreatic cancer Take pain medication and nausea medication as prescribed Follow-up with oncologist//PCP for further investigation and management Prescriptions: New ondansetron 4 mg tablet,disintegrating 4 mg PO Q6-8H PRN (Reason: nausea and vomiting) Qty: 10 0RF oxycodone 5 mg tablet 5 mg PO Q6H PRN (Reason: pain) Qty: 20 0RF Rx Instructions: Partial Fill upon patient request. No Action (DME) FreeStyle Lite Strips Strip See Rx Instructions .Route Qty: 200 1RF Rx Instructions: check fasting glucose qd ac hydroxyzine HCl 10 mg tablet 10 mg PO DAILY PRN (Reason: Anxiety) metoprolol tartrate 25 mg tablet 25 mg PO BID nitroglycerin 0.4 mg tablet, sublingual 0.4 mg sublingual Q5M PRN (Reason: Chest Pain) Rx Instructions: do not exceed 3 doses per episode aripiprazole [Abilify] 10 mg tablet 10 mg PO DAILY multivit with min-folic acid [One-A-Day Women's 50 Plus] 0.4 mg tablet PO Probiotic (B. coagulans) 250 million cell tablet,chewable PO (DME) blood-glucose meter [FreeStyle [place] Lite] Kit See Rx Instructions .Route Qty: 1 0RF Rx Instructions: check fasting glucose once a day pantoprazole 40 mg tablet,delayed release (DR/EC) 40 mg PO DAILY 30 Days Qty: 30 11RF Referrals: Kerline Dodd MD [Physician] - 1 week
[2023-08-22 19:18] LABS: MANUAL DIFF FLAG NO
[2023-08-22 19:19] LABS: Basophils Percent Auto 0.5 % (0-2); Eosinophils Percent Auto 0.4 % (0-4); Hematocrit 41.9 % (37.0-47.0); Hemoglobin 14.3 g/dl (12.0-16.0); Imm Gran Abs Auto 0.04 X10*3/uL (0.00-0.03); Imm Gran Pct Auto 0.5 % (0.0-0.4); Lymphocytes Absolute Auto 2.1 X10*3/uL (1.2-4.9); Lymphocytes Percent Auto 26.5 % (20-40); Mean Corpuscular HGB Conc 34.1 g/dl (31.0-35.0); Mean Corpuscular Hemoglobin 28.5 pg (27.0-33.0); Mean Corpuscular Volume 83.6 fL (80.0-98.0); Mean Platelet Volume 8.8 fL (9.4-12.3); Monocytes Absolute Auto 0.6 X10*3/uL (0.1-1.2); Monocytes Percent Auto 7.4 % (2-11); Neutrophils Absolute Auto 5.1 x10*3/uL (2.0-8.3); Neutrophils Percent Auto 64.7 % (45-73); Platelet Count 201 X10*3/uL (160-400); Red Blood Count 5.01 X10*6/uL (4.20-5.50); White Blood Count 7.8 X10*3/uL (4.8-10.8)
[2023-08-22 19:31] LABS: COVID-19 Test Negative (Negative); IDNOW Serial# 08D9AD1C
[2023-08-22 19:40] LABS: Alanine Aminotransferase 46 U/L (0-31); Albumin Level 4.2 g/dL (3.5-5.0); Alkaline Phosphatase 85 U/L (39-117); Anion Gap 15 (12-20); Aspartate Amino Transferase 37 U/L (5-31); Bilirubin Total 0.2 mg/dL (0.0-1.0); Blood Urea Nitrogen 10 mg/dL (9-16); Calcium 9.8 mg/dL (8.4-10.2); Carbon Dioxide 24 mmol/L (22-29); Chloride 106 mmol/L (96-108); Creatinine Clr Calc Pharmacy 82.8; Estimated Glomerular Filt Rate > 60; Glucose Random 139 mg/dL (60-115); Lipase 52 U/L (8-78); Magnesium 1.9 mg/dL (1.6-2.6); Potassium 3.6 mmol/L (3.3-5.1); Sodium 141 mmol/L (135-145); Total Protein 7.3 g/dL (6.5-8.0)
[2023-08-22 21:23] VITALS: BP 114/72; PULSE 82; RESP 14; TEMP 36.5; O2SAT 97
[2023-08-22 21:58] LABS: Appearance Urine Clear; Color Urine Yellow; Glucose Urine UA Negative (Negative); Leukocyte Esterase Urine Negative (Negative); Nitrite Urine Negative (Negative); PH 5.5 (5.0-9.0); Specific Gravity - Urine 1.025 (1.005-1.025); Urine Blood Negative (Negative); Urine Ketones Negative (Negative); Urine Protein Negative (Neg-Trace)
[2023-08-22] MEDS: Magnesium Hydrox/Alum Hydrox 30 ML ORAL.SUSP PO (23:30)
--- NOTE | 2023-08-22 23:36 | PC.NURSE ---
Port accessed successfully. Dressing applied. Pt tolerated well.
[2023-08-22] MEDS: iohexoL 350 MG/ML 100 ML INFUS..BTL 85 ML IV (23:50)
[2023-08-23 00:22] VITALS: BP 108/68; PULSE 79; RESP 16; TEMP 36.6; O2SAT 95
--- NOTE | 2023-08-23 01:03 | PC.NURSE ---
at bedside reviewed CT-scan results with pt. Pt is very emotional and crying. Support provided. Denies SI/HI at this time. Pt reports will visit with sister after discharge for support. Port IV de-accessed and bandaid applied. Pt tolerated well.
== END 2023-08-23 01:19 | disposition home or self-care (01) ==
PROVIDERS: Physician Assistant; Emergency Provider Internal Medicine; PCP Internal Medicine
DX: C25.9 Malignant neoplasm of pancreas, unspecified (principal); R10.13 Epigastric pain; F17.210 Nicotine dependence, cigarettes, uncomplicated; Z11.52 Encounter for screening for COVID-19; Z20.822 Contact with and (suspected) exposure to COVID-19; Z79.899 Other long term (current) drug therapy; Z71.6 Tobacco abuse counseling
CPT/HCPCS: 71045; 74177; 80053; 81003; 83690; 83735; 85025; 87635; 99284; Q9967

== ENCOUNTER 2023-08-24 16:12 | Outpatient (REF) | payer OTHER, SELFPAY ==
--- NOTE | ~2023-08-24 | XR_ITS ---
Examination: XR pre mri screening Indication: R/O FOREIGN BODY PRE MRI Comparison: No pertinent prior studies are currently available for comparison. Technique: 2 views of the skull/orbits were obtained Findings: No radiopaque foreign bodies are seen overlying the orbits. No evidence for aneurysm clip or intracranial surgical change. Dental amalgam partially visualized. Visualized sinuses are well aerated and unremarkable. No acute bony abnormality XR/XR pre mri screening Impression: No radiopaque foreign bodies seen overlying the orbits. Dental amalgam partially visualized.
== END 2023-08-24 16:13 | disposition home or self-care (01) ==
LOC: HO.MRI 16:12
PROVIDERS: PCP Internal Medicine; Visit Provider Internal Medicine Medical Oncology
DX: Z13.89 Encounter for screening for other disorder (principal)

== ENCOUNTER 2023-08-25 12:16 | Outpatient (REF) | payer OTHER, SELFPAY ==
--- NOTE | ~2023-08-25 | MR_ITS ---
EXAMINATION: MR ABDOMEN WITHOUT AND WITH CONTRAST CLINICAL INFORMATION: Prior abnormal imaging. Evaluate pancreatic mass. COMPARISON: CT abdomen/pelvis 08/22/2023 TECHNIQUE: MR abdomen was performed without and with use of 7.5 mL intravenous Gadavist gadolinium contrast. Postcontrast images are performed in multiphase dynamic sequences. Imaging was performed in 3 planes. MRCP was also performed. FINDINGS: LUNG BASES: No pleural or pericardial effusion. LIVER, GALLBLADDER, AND BILIARY TREE: Diffuse hepatic steatosis. The liver measures 17.9 cm. There are numerous peripherally enhancing hepatic hypodense lesion with the largest measuring 5.1 x 3.5 cm in segment 5. Hepatic vasculature is patent. No biliary ductal dilatation. The common duct measures 4 mm at the gregorio hepatis. The gallbladder is unremarkable. PANCREAS: No ductal dilatation. Along the cephalad margin of the pancreatic body there is a subtle solid mass measuring 1.3 x 1.6 x 1.8 cm. The mass is relatively hypoenhancing on the postcontrast images. SPLEEN: Not enlarged. ADRENAL GLANDS: No adrenal mass. KIDNEYS AND URETERS: The kidneys are symmetric in size and enhancement. No hydronephrosis. No perinephric stranding. GASTROINTESTINAL TRACT: No bowel obstruction. No ascites or fluid collection. LYMPH NODES: There are multiple gastrohepatic ligament and retroperitoneal lymph nodes. VASCULAR: Normal caliber abdominal aorta. OTHER: 3.3 x 3.6 x 3.3 cm T2 hyperintense lesion in the right adnexa. Findings are overwhelmingly likely to represent a benign functional cyst. No follow-up imaging recommended. MR/MR abdomen wo/w con IMPRESSION: 1.3 x 1.6 x 1.8 cm mass in the body of the pancreas. No dilatation of the main pancreatic duct. There are numerous peripherally enhancing hepatic masses. There are enlarged gastrohepatic ligament and retroperitoneal lymph nodes. This likely represents metastatic disease.
[2023-08-25] MEDS: gadobutroL 7.5 ML VIAL IVPUSH (14:32)
== END 2023-08-25 12:17 | disposition home or self-care (01) ==
LOC: HO.MRI 12:16
PROVIDERS: Visit Provider Internal Medicine Medical Oncology
DX: K86.89 Other specified diseases of pancreas (principal)
CPT/HCPCS: 74183; A9585

== ENCOUNTER 2023-09-06 12:09 | Day surgery (SDC) | payer OTHER, SELFPAY ==
[2023-09-06] VITALS (8 sets, daily range): BP systolic 95–113; BP diastolic 46–78; PULSE 81–98; RESP 16–20; TEMP 36.1–36.4; O2SAT 94–99; BMI 30.3
--- NOTE | ~2023-09-06 | US_ITS ---
CLINICAL HISTORY: History of breast cancer. New pancreatic mass with liver lesions concerning for metastases. PROCEDURES: 1. Limited preprocedure ultrasound of the abdomen. Permanent images saved in PACS. 2. Total of 4 core biopsies of the right lobe liver mass. 3. Limited post procedure ultrasound of the abdomen. Permanent images taken PACS. CLINICIANS: Martin Hay PA-C Preprocedural imaging reviewed with Dr. Tee MEDICATIONS: -Versed 1.5 mg, Fentanyl 75 mcg, and lidocaine 1% 10 mL SQ -Antibiotics: None -For additional details, please see nursing flowsheet. COMPLICATIONS: None ESTIMATED BLOOD LOSS: < 5 ml CONTRAST: None SPECIMENS: Total of 4 20-gauge biopsies of the liver mass. MODERATE SEDATION TIME: 16 min PROCEDURE NOTE: The procedure, risks, benefits, and alternatives were carefully explained to the patient and written informed consent was obtained. The patient was placed supine on the ultrasound table. A timeout was performed. A limited ultrasound of the abdomen was performed to localize the liver lesion and choose appropriate needle entry and trajectory. The patient was prepped and draped in usual sterile fashion. The skin and subcutaneous tissues were anesthetized with lidocaine. Under ultrasound guidance, a trocar was advanced to the lesion. A 20-gauge core biopsy device was inserted through the double wall needle, with the needle tip advanced into the lesion. Position was confirmed with ultrasound evaluation. A total of 4 core biopsies were obtained. 2 Gelfoam torpedoes were inserted through the trocar needle and positioned in the biopsy tract and at the level of the capsule. The needle was then removed. A post procedure ultrasound was then obtained. The patient was stable after the procedure and was transferred to the post anesthesia care unit. The procedure was done under moderate sedation with a dedicated nurse for monitoring of vital signs. US/US biopsy liver Impression: Ultrasound-guided biopsy of right lobe liver mass This procedure was performed by Martin Hay PA-C and supervised by Dr. Tee.
[2023-09-06 12:55] LABS: INTERNATIONAL NORM RATIO 1.1 (0.9-1.1); Prothrombin Time 13.5 SEC (11.1-13.3)
[2023-09-06 12:58] LABS: Partial Thromboplastin Time 27.6 SEC (26.0-36.4)
[2023-09-06] MEDS: Lidocaine HCl 1 % MPF 5 ML VIAL 10 ML SUBCUT (13:53)
== END 2023-09-06 16:12 | disposition home or self-care (01) ==
PROVIDERS: Physician Assistant Surgical; PCP Internal Medicine; Visit Provider Student in an Organized Health Care Education/Training Program
DX: C50.412 Malignant neoplasm of upper-outer quadrant of left female breast (principal); Z17.1 Estrogen receptor negative status [ER-]; C78.7 Secondary malignant neoplasm of liver and intrahepatic bile duct; K86.9 Disease of pancreas, unspecified; Z85.3 Personal history of malignant neoplasm of breast; Z80.3 Family history of malignant neoplasm of breast; F17.210 Nicotine dependence, cigarettes, uncomplicated; R73.01 Impaired fasting glucose
CPT/HCPCS: 36415; 47000; 76942; 85610; 85730; 86850; 86900; 86901; 88307; 88313; 88341; 88342; 99152; J1642; J2250; J2310; J3010

== ENCOUNTER → 2023-09-06 13:38 | Outpatient (BNV) | payer OTHER, SELFPAY | PROVIDERS: PCP Internal Medicine; Visit Provider Student in an Organized Health Care Education/Training Program | DX: K76.89 Other specified diseases of liver (principal) | CPT/HCPCS: 47000; 76942 ==

== ENCOUNTER 2023-09-14 11:46 | Outpatient (REF) | payer OTHER, SELFPAY ==
--- NOTE | ~2023-09-14 | PE_ITS ---
EXAMINATION: Fluorine-18 FDG PET/CT Scan CLINICAL INDICATION: Subsequent treatment management. 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 For restaging. PROCEDURE: 65 minutes following the intravenous administration of 14.9 mCi of fluorine 18 FDG, images from the base of the skull to the mid thighs were obtained using a combined PET/CT scanner with CT scan based attenuation correction. No intravenous contrast was administered. Transverse, coronal, sagittal, and volume reconstruction projections were obtained. The patient's blood glucose as determined by a finger stick, was 91 mg/dl immediately prior to injection. The radiotracer was injected intravenously through the right antecubital superficial vein, without any complications. Total CT exam dose-length product 714.02 mGy-cm * These CT images were obtained using dose optimization techniques as appropriate, variously including the following: Automated exposure control * Adjustment of mA and/or kV according to patient size (this includes techniques or standardized protocols for targeted exams where dose is matched to indication/reason for exam; i.e. extremities or head) * Use of iterative reconstruction technique COMPARISON: CT scan of the abdomen and pelvis done on 08/22/2023 and MRI of the abdomen done on 08/25/2023 and ultrasound-guided liver biopsy done on 09/06/2023. FINDINGS: SUV max REFERENCE: Blood: 5.7 (197/267). Liver: 8.9 (170/267). HEAD AND NECK: Solitary tracer avid subcentimeter left supraclavicular lymph node is noted with SUV max of 10.9 (226/267). No large intracranial hemorrhage, acute territorial infarct or significant shift of midline structures. CHEST: Ports and Devices: There is a right-sided Port-A-Cath present with its tip seen at the cavoatrial junction, appear in good position. Lungs: Abnormal. Emphysematous disease is present bilaterally. Superimposed tracer avid lung nodules are noted at the apical segment of the right upper lobe, Rebecca-fissural nodule around the right middle lobe laterally also Rebecca-fissural nodule at mid part of the left major fissure. The dominant nodule measuring approximately 1.5 cm is seen within the lingular segment of the left upper lobe with SUV max of 7.8 (195/267). The findings are highly suspicious for pulmonary metastases. Pleura: No significant pleural effusion. Lymph Nodes: 1.50 cm maximum dimension tracer avid left superior paratracheal lymph node is noted with SUV max of 16.0 (219/267). 1 cm maximum dimension tracer avid right cardiophrenic angle/peridiaphragmatic lymph node with SUV max of 15.6 (178/267). Mediastinum: There is no significant pericardial effusion/thickening. Breasts/Chest Wall: Nonspecific mild tracer avidity is noted around the nipple and within the overlying thickened skin. This may represent posttreatment changes. Please correlate clinically and with diagnostic mammogram as appropriate for further clarification. ABDOMEN/PELVIS: Liver/Biliary System: Diffuse hepatic steatosis and superimposed multifocal liver lesions involving both lobes of. The dominant focal lesion associated with inferior central necrosis is seen at segment 4, measures approximately 7.2 cm at its maximum transverse dimension with SUV max of 31.9 (153/267). Smaller dominant lesion seen within the right lobe of the liver measures approximately 1.3 cm seen at segment 5 and the subcapsular region anterolaterally with SUV max of 21.5 (151/267). The gallbladder is unremarkable. No evidence of any biliary ductal dilatation present. Pancreas: Normal.No tracer avid pancreatic lesion or pancreatic ductal dilatation. Subtle asymmetric soft tissue fullness within the body of the pancreas appear unchanged. Spleen: No abnormal radiotracer uptake. No evidence of splenomegaly. Adrenal Glands: No abnormal radiotracer uptake. Kidneys: No hydronephrosis, hydroureter or renal calculi bilaterally. Bowel: There is no significant bowel dilatation to suggest obstruction. Lymph Nodes: Multiple tracer avid lymph nodes are noted starting at the level of the gastrohepatic ligament, around the celiac axis, around the superior mesenteric artery, renal vessels extending inferiorly to the level of common iliac vessels bilaterally and on the right to the level of the right internal iliac vessels at the pelvic inlet. The dominant lymph node seen at the level of the left renal vessels measures approximately 1.0 cm with SUV max of 24.1 (133/267). Pelvic Organs: The urinary bladder is underdistended. Solitary unilocular nontracer avid 4.0 cm maximum dimension cystic mass is noted at the right adnexal region, likely represent right ovarian enlarged follicle versus cyst. The uterus is unremarkable. MUSCULOSKELETAL: Heterogeneous radiotracer distribution is noted without evidence of any focal abnormal tracer avid disease, may represent physiologic variation. Note is also made of presence of moderately intense tracer avidity overlying both greater trochanter of the femur, most consistent with tendinitis/bursitis or combination thereof. VASCULAR: No significant calcific atherosclerotic disease. THE SITE OF MOST INTENSE FDG AVIDITY AND SUV MAX: Left lobe of the liver with the dominant lesion measuring approximately 7.2 cm at its maximum transverse dimension and SUV max of 31.9. PET/PET CT fusion skull to thigh IMPRESSION: 1. Abnormal study. There are multifocal tracer avid liver lesions (left greater than the right lobe) with the dominant lesion seen within the left lobe measuring 7.2 cm and SUV max of 31.9. The findings are consistent with clinically known biopsy proved hepatic metastatic disease. 2. In addition, extensive tracer avid retroperitoneal lymphadenopathy and tracer avid lymphadenopathy at the right cardiophrenic angle/peridiaphragmatic node, left superior mediastinal paratracheal node and left supraclavicular lymph nodes are also present, consistent with metastatic disease as well. 3. Note is also made of multifocal tracer avid lung nodules of which the dominant nodule is seen within the lingular segment of the left upper lobe measures 1.5 cm with SUV max of 7.8, consistent with pulmonary metastasis. 4. Heterogeneous radiotracer distribution within the axial and appendicular skeleton without any definite focal tracer avid disease, may represent physiologic variation or early bone marrow involvement
== END 2023-09-14 11:47 | disposition home or self-care (01) ==
LOC: HO.PET 11:46
PROVIDERS: PCP Internal Medicine; Visit Provider Internal Medicine Medical Oncology
DX: Z13.89 Encounter for screening for other disorder (principal)

== ENCOUNTER 2023-09-27 10:48 | Outpatient (REF) | payer OTHER, SELFPAY ==
[2023-09-27 11:13] LABS: MANUAL DIFF FLAG NO
[2023-09-27 11:22] LABS: Basophils Percent Auto 0.2 % (0-2); Eosinophils Percent Auto 0.5 % (0-4); Hematocrit 40.4 % (37.0-47.0); Hemoglobin 13.4 g/dl (12.0-16.0); Imm Gran Abs Auto 0.02 X10*3/uL (0.00-0.03); Imm Gran Pct Auto 0.3 % (0.0-0.4); Lymphocytes Absolute Auto 1.3 X10*3/uL (1.2-4.9); Lymphocytes Percent Auto 20.1 % (20-40); Mean Corpuscular HGB Conc 33.2 g/dl (31.0-35.0); Mean Corpuscular Hemoglobin 27.1 pg (27.0-33.0); Mean Corpuscular Volume 81.8 fL (80.0-98.0); Mean Platelet Volume 8.5 fL (9.4-12.3); Monocytes Absolute Auto 0.6 X10*3/uL (0.1-1.2); Monocytes Percent Auto 8.6 % (2-11); Neutrophils Absolute Auto 4.6 x10*3/uL (2.0-8.3); Neutrophils Percent Auto 70.3 % (45-73); Platelet Count 203 X10*3/uL (160-400); Red Blood Count 4.94 X10*6/uL (4.20-5.50); Red Cell Distribution Width 13.9 % (11.0-16.0); White Blood Count 6.5 X10*3/uL (4.8-10.8)
[2023-09-27 11:30] LABS: Alanine Aminotransferase 29 U/L (0-31); Alkaline Phosphatase 110 U/L (39-117); Anion Gap 14 (12-20); Aspartate Amino Transferase 44 U/L (5-31); Bilirubin Total 0.3 mg/dL (0.0-1.0); Blood Urea Nitrogen 10 mg/dL (9-16); Calcium 8.7 mg/dL (8.4-10.2); Carbon Dioxide 26 mmol/L (22-29); Chloride 102 mmol/L (96-108); Estimated Glomerular Filt Rate > 60; Glucose Random 106 mg/dL (60-115); Potassium 4.1 mmol/L (3.3-5.1); Sodium 138 mmol/L (135-145); Total Protein 7.2 g/dL (6.5-8.0)
[2023-09-27 11:54] LABS: HBS Num1 > 1000.00 mIU/mL (0-7.99); HBc Num1 0.08 S/CO (0.00-0.79); HBsAGNum1 0.34 S/CO (0.00-0.99); Hepatitis B Core Antibody Nonreactive (Nonreactive); Hepatitis B Surface Antigen Negative (Negative); ~Hepatitis B Surface Antibody REACTIVE (Nonreactive)
== END 2023-09-27 10:49 | disposition home or self-care (01) ==
LOC: HO.LAB 10:48
PROVIDERS: Visit Provider Internal Medicine Medical Oncology
DX: C25.9 Malignant neoplasm of pancreas, unspecified (principal); C78.7 Secondary malignant neoplasm of liver and intrahepatic bile duct
CPT/HCPCS: 36415; 80053; 85025; 86704; 86706; 87340

== ENCOUNTER 2023-09-27 11:17 | Outpatient (REF) | payer OTHER, SELFPAY ==
--- NOTE | ~2023-09-27 | CT_ITS ---
EXAMINATION: CT CHEST, ABDOMEN, AND PELVIS WITH CONTRAST CLINICAL INFORMATION: Pancreatic carcinoma with liver metastasis COMPARISON: PET/CT from 09/14/[address] scan of the abdomen from 08/22/2023 TECHNIQUE: Multidetector volumetric CT imaging of the chest, abdomen, and pelvis was obtained after the administration of 85 mL of Omnipaque 150 intravenous contrast without immediate adverse reactions. Axial MIP volume rendering provided. Sagittal and coronal reformatted images were obtained. This CT examination was performed using dose optimization techniques as appropriate, variously including the following: *Automated exposure control *Adjustment of mA and/or kV according to patient size (this includes techniques or standardized protocols for targeted exams where dose is matched to indication/reason for exam; i.e. extremities or head) *Use of iterative reconstruction technique DLP: 127 mGy-cm for chest and 366mGy-cm per abdomen FINDINGS: LUNGS: There are multiple lung nodules seen bilaterally, such as on the right there is right upper lobe subpleural 0.3 cm nodule on image 101, 0.7 cm nodule seen on image 118, 0.2 cm nodule seen on image 234, 0.4 cm nodule seen on image 241 medially, 0.5 cm nodule seen on image 266, 0.5 cm nodule seen on image 284, 0.5 cm subpleural right lower lobe nodule seen on image 326; on the left there are multiple 0.2 -0.3 cm nodules seen, and left lower lobe 0.8 cm nodule seen on image 351, 0.4 cm nodule on image 334, conglomerate of 2 identical 0.3 cm nodules seen subpleural in the left lower lobe on image 318, and left upper lobe 1.0 cm nodule seen on image 226. MEDIASTINUM: There are 2 pericardial 1.0 cm nodules seen on image 37-39 series 3, CORONARY ARTERY CALCIFICATION: Not seen PLEURA: There is no pleural effusion. No pleural mass or thickening. AXILLA: No lymphadenopathy by size criteria. LIVER, GALLBLADDER, AND BILIARY TREE: There are numerous ill-defined overlapping low-attenuation lesion seen through the liver mostly on the left growing since previous study and consistent with the appearance of progression of metastatic disease. The largest lesion on the body of left and right lobe measured 5.6 x 8.3 x 3.7 cm. Unremarkable appearance of the gallbladder. PANCREAS: There is ill-defined, stable pancreatic body lesion measured 0.9 x 1.9 x 1.1 cm. SPLEEN: Unremarkable ADRENAL GLANDS: There is left adrenal gland nodule, measured 1.0 cm. KIDNEYS AND URETERS: The kidneys appear unremarkable in size, shape, and attenuation. No hydronephrosis, hydroureter, or calculi seen. BLADDER: Unremarkable GASTROINTESTINAL TRACT: The small and large bowel appear unremarkable. ABDOMINAL WALL: No significant hernia is appreciated. LYMPH NODES: There are multiple retroperitoneal enlarged lymph nodes seen surrounding aorta VASCULAR: Unremarkable., Renal arteries IVC, growing in size since previous study multiple lymph nodes seen in gregorio hepatis. PELVIC VISCERA: Uterus is unremarkable. There is stable right adnexal cyst, measured 3.9 x 3.3 x 3.6 cm. OSSEOUS STRUCTURES: Unremarkable. CT/CT abdomen pelvis w IV con IMPRESSION: 1. Multiple lung nodules, growing since previous study. 2. Extensive, worsening metastatic disease in the liver. 3. Stable ill-defined pancreatic body lesion. 4. Retroperitoneal growing lymphadenopathy. 5. Stable left adrenal gland nodule. 6. Stable right adnexal cyst.
[2023-09-27] MEDS: iohexoL 350 MG/ML 100 ML INFUS..BTL 85 ML IV (12:08)
== END 2023-09-27 11:18 | disposition home or self-care (01) ==
LOC: HO.CT 11:17
PROVIDERS: PCP Internal Medicine; Visit Provider Internal Medicine Medical Oncology
DX: C25.9 Malignant neoplasm of pancreas, unspecified (principal); C78.7 Secondary malignant neoplasm of liver and intrahepatic bile duct
CPT/HCPCS: 71260; 74177; Q9967

== ENCOUNTER 2023-11-26 13:12 | Outpatient (REF) | payer MEDICARE, MEDICAID, SELFPAY ==
--- NOTE | ~2023-11-26 | CT_ITS ---
EXAMINATION: CT CHEST, ABDOMEN, AND PELVIS WITH CONTRAST CLINICAL INFORMATION: Follow-up pulmonary nodule, pancreatic carcinoma follow-up COMPARISON: 09/27/2023 TECHNIQUE: Multidetector volumetric CT imaging of the chest, abdomen, and pelvis was obtained after the administration of 85 mL of Omnipaque 350 intravenous contrast without immediate adverse reactions. Axial MIP volume rendering provided. Sagittal and coronal reformatted images were obtained. This CT examination was performed using dose optimization techniques as appropriate, variously including the following: *Automated exposure control *Adjustment of mA and/or kV according to patient size (this includes techniques or standardized protocols for targeted exams where dose is matched to indication/reason for exam; i.e. extremities or head) *Use of iterative reconstruction technique DLP: 481 mGy-cm FINDINGS: There is Port-A-Cath present on the right terminates within the SVC. LUNGS: There is significantly diminished lung nodules in comparison to the previous study with almost no lung nodules present on the current examination MEDIASTINUM: The mediastinum appears unremarkable. CORONARY ARTERY CALCIFICATION: Not seen PLEURA: There is no pleural effusion. No pleural mass or thickening. AXILLA: No lymphadenopathy by size criteria. LIVER, GALLBLADDER, AND BILIARY TREE: Liver is of low attenuation seen previously left lobe of the liver multiple metastasis significantly diminished in size residual left lobe of the liver lesion measured 3.5 cm and 3.6 cm. The largest lesion in the right lobe of the liver measured 4.3 x 2.2 x 3.0 cm. There are no new lesions. Unremarkable appearance of the gallbladder. PANCREAS: Unremarkable SPLEEN: Spleen is enlarged without metastasis, measured 14 cm. ADRENAL GLANDS: There is stable left adrenal gland nodule. KIDNEYS AND URETERS: The kidneys appear unremarkable in size, shape, and attenuation. No hydronephrosis, hydroureter, or calculi seen. BLADDER: Unremarkable GASTROINTESTINAL TRACT: The small and large bowel appear unremarkable. ABDOMINAL WALL: No significant hernia is appreciated. LYMPH NODES: No evidence of adenopathy by size criteria. VASCULAR: Unremarkable. PELVIC VISCERA: There is smaller right adnexal cyst, measured 2.9 x 3.0 x 3.2 cm OSSEOUS STRUCTURES: Unremarkable. CT/CT abdomen pelvis w IV con IMPRESSION: 1. Significantly diminished size and number of lung nodules. 2. Significant reduction in size of liver metastases. 3. Stable left adrenal gland nodule. 4. Right adnexal cyst. 5. Splenomegaly. 6. Port-A-Cath in place.
== END 2023-11-26 13:13 | disposition home or self-care (01) ==
LOC: HO.CT 13:12
PROVIDERS: PCP Internal Medicine; Visit Provider Internal Medicine Medical Oncology
DX: C25.9 Malignant neoplasm of pancreas, unspecified (principal); C78.7 Secondary malignant neoplasm of liver and intrahepatic bile duct; C50.412 Malignant neoplasm of upper-outer quadrant of left female breast
CPT/HCPCS: 71260; 74177

== ENCOUNTER 2023-12-16 15:25 | Outpatient (REF) | payer MEDICARE, MEDICAID, SELFPAY ==
--- NOTE | ~2023-12-16 | XR_ITS ---
EXAMINATION: XR CHEST CLINICAL INFORMATION: Right-sided swelling COMPARISON: CT chest 11/26/2023 TECHNIQUE: 2 views of the chest were obtained. FINDINGS: Right-sided port is noted with its distal tip in the SVC. No pneumothorax. Lungs clear. No pleural effusions. Heart and pulmonary vessels normal. XR/XR chest 2V IMPRESSION: No active disease. The right-sided port appears to be in good position.
--- NOTE | ~2023-12-16 | US_ITS ---
EXAMINATION: US VENOUS WITH DOPPLER UPPER EXTREMITY, RIGHT. CLINICAL INFORMATION: Right neck swelling COMPARISON: None available. TECHNIQUE: Ultrasound of the upper extremity is performed using compression sonography and color and pulse Doppler flow with assessment of augmentation of flow. There is also imaging and Doppler assessment of the jugular and subclavian veins. Spectral analysis with color-flow imaging is performed. FINDINGS: There is absence of flow within the right internal jugular and right innominate vein. The right subclavian, axillary, cephalic, basilar, brachial veins are patent with normal color flow and normal Doppler flow. The soft tissues are normal. If the patient's symptoms progress, a followup ultrasound in 5 -7 days might be of value to exclude proximal propagation from a nonvisualized distal arm vein. US/US venous duplex UE RT IMPRESSION: Acute thrombus within right jugular and right innominate vein. Rest of the right upper extremity is patent.
== END 2023-12-16 15:26 | disposition home or self-care (01) ==
LOC: HO.XRAY 15:25
PROVIDERS: Visit Provider Internal Medicine Medical Oncology
DX: R22.1 Localized swelling, mass and lump, neck (principal); M79.89 Other specified soft tissue disorders
CPT/HCPCS: 71046; 93971

== ENCOUNTER 2023-12-17 11:41 | Outpatient (REF) | payer MEDICARE, MEDICAID, SELFPAY ==
--- NOTE | ~2023-12-17 | CT_ITS ---
EXAMINATION: CT ANGIOGRAM OF THE CHEST WITH AND WITHOUT CONTRAST (CT PULMONARY ANGIOGRAM FOR PE) CLINICAL INFORMATION: Reason for Exam Rule out PE COMPARISON: 11/26/2023 TECHNIQUE: Prior to contrast administration, noncontrast localization images were obtained. Subsequently, multidetector volumetric imaging was performed from the thoracic inlet to below the diaphragms following the administration of 65 mL Omnipaque 350 intravenous contrast. No contrast reaction reported Sagittal, coronal, and MIP oblique sagittal reformatted images were obtained on the CT workstation, uploaded to PACS, and reviewed. This CT examination was performed using dose optimization techniques as appropriate, variously including the following: *Automated exposure control *Adjustment of mA and/or kV according to patient size (this includes techniques or standardized protocols for targeted exams where dose is matched to indication/reason for exam; i.e. extremities or head) *Use of iterative reconstruction technique Total exam dose-length product 107 mGy-cm FINDINGS: QUALITY OF STUDY/CONTRAST BOLUS: Satisfactory. PULMONARY ARTERIES: There are pulmonary arterial filling defects to the right lower lobe pulmonary arterial subsegmental branches. THORACIC AORTA: No aneurysm. LUNG: No suspicious pulmonary nodule. PLEURA: No pleural effusion. MEDIASTINUM: Normal heart size. No pericardial effusion. No hilar or mediastinal lymphadenopathy. No evidence of septal bowing or right heart strain. CORONARY ARTERY CALCIFICATION: None visualized on this study. CHEST WALL/AXILLA: No axillary or internal mammary lymphadenopathy. Right chest wall Port-A-Cath with tip at the cavoatrial junction. OSSEOUS STRUCTURES: No destructive bone lesion. UPPER ABDOMEN: Marked hepatic steatosis. No reflux of contrast into the hepatic veins to suggest elevated right heart pressures. CT/CT angio chest PE protocol IMPRESSION: Positive pulmonary embolus right lower lobe subsegmental pulmonary arterial branches. Marked hepatic steatosis. Findings were reviewed and discussed with Dr. Torres at 1:15 PM on 12/17/2023. VTE: positive
[2023-12-17] MEDS: iohexoL 350 MG/ML 100 ML INFUS..BTL 65 ML IV (12:04)
== END 2023-12-17 11:42 | disposition home or self-care (01) ==
LOC: HO.CT 11:41
PROVIDERS: PCP Internal Medicine; Visit Provider Internal Medicine Medical Oncology
DX: R06.00 Dyspnea, unspecified (principal)
CPT/HCPCS: 71275; Q9967

== ENCOUNTER 2023-12-28 09:30 | Day surgery (SDC) | payer OTHER, SELFPAY ==
--- NOTE | ~2023-12-28 | IR_ITS ---
Port removal History: Concern for infection. Erythema surrounding port. Procedure: The risks and benefits were discussed the patient and the consent was signed. The right anterior chest was prepped and draped in routine sterile fashion. The skin was anesthetized with 1% lidocaine. An incision was made over the previous scar. Utilizing blunt dissection, the port was removed from the chest with the catheter intact. No purulent fluid was encountered. The pocket was irrigated with 50 mL of normal saline. The port pocket was closed with interrupted 3-0 Vicryl sutures in the deep layer and surgical glue to close the skin. The patient tolerated the procedure well. A sterile dressing was applied. This procedure was performed by Martin Hay PA-C, and supervised by Dr. Del Valle. IR/IR cvc remove tunnel w prt/pe manager Impression: Right port removal
[2023-12-28 09:50] VITALS: BMI 27.5
--- NOTE | 2023-12-28 09:51 | PC.NURSE ---
patient took her eliquis yesterday and edith rajan aware per radiology nurse. ok to proceed.
[2023-12-28 12:15] VITALS: BP 111/76; PULSE 87; RESP 16; TEMP 36.6; O2SAT 96
[2023-12-28 12:30] VITALS: BP 114/67; PULSE 87; RESP 16; TEMP 36.5; O2SAT 96
== END 2023-12-28 13:00 | disposition home or self-care (01) ==
PROVIDERS: Radiology Vascular & Interventional Radiology; PCP Internal Medicine; Visit Provider Internal Medicine Medical Oncology
PROC: (CPT 36590; principal; 2023-12-28 11:00)
DX: Z45.2 Encounter for adjustment and management of vascular access device (principal); L53.9 Erythematous condition, unspecified; I26.99 Other pulmonary embolism without acute cor pulmonale; C78.89 Secondary malignant neoplasm of other digestive organs; C78.7 Secondary malignant neoplasm of liver and intrahepatic bile duct; Z85.3 Personal history of malignant neoplasm of breast; F17.210 Nicotine dependence, cigarettes, uncomplicated
CPT/HCPCS: 36590; 87040; 87071; J2250; J2310; J3010

== ENCOUNTER → 2023-12-28 11:00 | Outpatient (BNV) | payer OTHER, SELFPAY | PROVIDERS: PCP Internal Medicine; Visit Provider Physician Assistant Surgical | DX: T82.594A Other mechanical complication of infusion catheter, initial encounter (principal); C25.9 Malignant neoplasm of pancreas, unspecified | CPT/HCPCS: 36590 ==

== ENCOUNTER 2024-01-03 10:06 | Day surgery (SDC) | payer OTHER, SELFPAY ==
--- NOTE | ~2024-01-03 | IR_ITS ---
CLINICAL HISTORY: Pancreatic cancer. Recent right port removed due to erosion. The patient presents to interventional radiology for placement of a new port for chemotherapy. PROCEDURES: 1. Real-time ultrasound-guided access into the left internal jugular vein after documentation of selected vessel patency, and permanent image storing in the patient records. 2. Placement of a 6.0 [place] single-lumen power port. CLINICIAN: Martin Hay PA-C MEDICATIONS: - Versed 2 mg, Fentanyl 100 mcg, Lidocaine 1% 10 mL SQ -Antibiotics: Clindamycin 600 mg -For additional details, please see nursing flowsheet. Complications: None. Estimated blood loss: <5 ml Specimens: None. Contrast: None. Fluoroscopy time: 1.1 min MODERATE SEDATION TIME: 36 min PROCEDURE NOTE: The procedure, risks, benefits, and alternatives were carefully explained to the patient and written informed consent was obtained. The patient was placed supine on the fluoroscopy table. A timeout was performed. The left neck and chest was prepped and draped in usual sterile fashion. Maximum barrier technique was utilized. Local anesthesia was administered to the access site with 1% lidocaine. Under ultrasound guidance, the left internal jugular vein was accessed with a 5 fr micropuncture set. A 0.035 in wire was advanced into the IVC. A peel-away sheath was advanced over the wire and into the SVC, and the wire was removed. Next, subcutaneous lidocaine was administered to the chest. The port pocket was created after the skin incision, utilizing blunt dissection. Using blunt dissection, a subcutaneous tunnel was created that connects from the port pocket to the venotomy site. Through the peel-away sheath, the 6.0 [place] port catheter was placed. The catheter position was verified with fluoroscopy to be at the superior vena cava/right atrial junction. The port was connected to the catheter and was placed in the pocket. The venotomy site was closed with a 3-0 Vicryl subcutaneous suture. The port incision site was closed with interrupted 3-0 Vicryl subcutaneous sutures and surgical glue. The port was tested, flushed, and packed with heparin per routine protocol. The patient tolerated the procedure well. The patient was stable after the procedure and was transferred to the PACU. The procedure was performed under moderate sedation and with a dedicated nurse with continuous monitoring of vital signs. A permanent image of the ultrasound the neck and fluoroscopic image of the chest was saved and sent to PACS. FINDINGS: 1. Patent left internal jugular vein 2. Placement of a 6.0 [place] single lumen power port. 3. Port flushes and aspirates very well with a 10 mL syringe. No pneumothorax. IR/IR us guide venous access IMPRESSION: Placement of a 6.0 [place] single-lumen power port. PLAN: - The patient will be discharged home when stable by sedation protocol. - Port may be used immediately. This procedure was performed by Martin Hay PA-C, and directly supervised by Dr. Tee
--- NOTE | ~2024-01-03 | IR_ITS ---
CLINICAL HISTORY: Pancreatic cancer. Recent right port removed due to erosion. The patient presents to interventional radiology for placement of a new port for chemotherapy. PROCEDURES: 1. Real-time ultrasound-guided access into the left internal jugular vein after documentation of selected vessel patency, and permanent image storing in the patient records. 2. Placement of a 6.0 [place] single-lumen power port. CLINICIAN: Martin Hay PA-C MEDICATIONS: - Versed 2 mg, Fentanyl 100 mcg, Lidocaine 1% 10 mL SQ -Antibiotics: Clindamycin 600 mg -For additional details, please see nursing flowsheet. Complications: None. Estimated blood loss: <5 ml Specimens: None. Contrast: None. Fluoroscopy time: 1.1 min MODERATE SEDATION TIME: 36 min PROCEDURE NOTE: The procedure, risks, benefits, and alternatives were carefully explained to the patient and written informed consent was obtained. The patient was placed supine on the fluoroscopy table. A timeout was performed. The left neck and chest was prepped and draped in usual sterile fashion. Maximum barrier technique was utilized. Local anesthesia was administered to the access site with 1% lidocaine. Under ultrasound guidance, the left internal jugular vein was accessed with a 5 fr micropuncture set. A 0.035 in wire was advanced into the IVC. A peel-away sheath was advanced over the wire and into the SVC, and the wire was removed. Next, subcutaneous lidocaine was administered to the chest. The port pocket was created after the skin incision, utilizing blunt dissection. Using blunt dissection, a subcutaneous tunnel was created that connects from the port pocket to the venotomy site. Through the peel-away sheath, the 6.0 [place] port catheter was placed. The catheter position was verified with fluoroscopy to be at the superior vena cava/right atrial junction. The port was connected to the catheter and was placed in the pocket. The venotomy site was closed with a 3-0 Vicryl subcutaneous suture. The port incision site was closed with interrupted 3-0 Vicryl subcutaneous sutures and surgical glue. The port was tested, flushed, and packed with heparin per routine protocol. The patient tolerated the procedure well. The patient was stable after the procedure and was transferred to the PACU. The procedure was performed under moderate sedation and with a dedicated nurse with continuous monitoring of vital signs. A permanent image of the ultrasound the neck and fluoroscopic image of the chest was saved and sent to PACS. FINDINGS: 1. Patent left internal jugular vein 2. Placement of a 6.0 [place] single lumen power port. 3. Port flushes and aspirates very well with a 10 mL syringe. No pneumothorax. IR/IR cvc insert tunnel w prt/biomedical instrument technician IMPRESSION: Placement of a 6.0 [place] single-lumen power port. PLAN: - The patient will be discharged home when stable by sedation protocol. - Port may be used immediately. This procedure was performed by Martin Hay PA-C, and directly supervised by Dr. Tee
[2024-01-03 10:35] VITALS: BMI 28.6
[2024-01-03 13:00] VITALS: BP 126/90; PULSE 97; RESP 16; TEMP 36.1; O2SAT 98
[2024-01-03 13:15] VITALS: BP 118/85; PULSE 98; RESP 16; TEMP 36.1; O2SAT 96
== END 2024-01-03 13:37 | disposition home or self-care (01) ==
LOC: HO.SSS 10:08
PROVIDERS: Student in an Organized Health Care Education/Training Program; PCP Internal Medicine; Visit Provider Internal Medicine Medical Oncology
DX: C25.9 Malignant neoplasm of pancreas, unspecified (principal); C78.7 Secondary malignant neoplasm of liver and intrahepatic bile duct; Z85.3 Personal history of malignant neoplasm of breast; F17.210 Nicotine dependence, cigarettes, uncomplicated; Z79.899 Other long term (current) drug therapy; Z88.0 Allergy status to penicillin; Z88.5 Allergy status to narcotic agent; Z88.8 Allergy status to other drugs, medicaments and biological substances; Z98.890 Other specified postprocedural states
CPT/HCPCS: 36561; 76937; 99152; 99153; C1769; C1788; J0690; J0736; J1642; J1644; J2250; J2310; J3010

== ENCOUNTER → 2024-01-03 10:46 | Outpatient (BNV) | payer OTHER, SELFPAY | PROVIDERS: PCP Internal Medicine; Visit Provider Physician Assistant Surgical | DX: C25.9 Malignant neoplasm of pancreas, unspecified (principal) | CPT/HCPCS: 36561; 76937 ==

== ENCOUNTER 2024-02-21 12:30 | Emergency (ER) | payer OTHER, SELFPAY ==
--- NOTE | ~2024-02-21 | CT_ITS ---
EXAMINATION: CT CHEST, ABDOMEN AND PELVIS WITH CONTRAST CLINICAL INFORMATION: Pancreatic cancer, rule out metastasis COMPARISON: Multiple priors, most recent 12/17/2023 TECHNIQUE: Multidetector volumetric imaging was performed through the chest, abdomen and pelvis following the administration of 85 mL of Omnipaque 350 intravenous contrast. Sagittal and coronal reformatted images were obtained on the technologist's workstation. Axial MIP volume rendering provided. This CT examination was performed using dose optimization techniques as appropriate, variously including the following: *Automated exposure control *Adjustment of mA and/or kV according to patient size (this includes techniques or standardized protocols for targeted exams where dose is matched to indication/reason for exam; i.e. extremities or head) *Use of iterative reconstruction technique DLP: 740 mGy-cm FINDINGS: CHEST: Lungs: Mild upper lobe predominant emphysema. Subsegmental atelectasis in the bilateral lower lobes, left greater than right. Several scattered lung nodules are present, including a 3 mm left upper lobe nodule on image 128/469 laterally, 6 x 3 mm in the lingula on image 259, 3 mm in the posterior right upper lobe on image 134, 4 mm in the right upper lobe on image 159, and 3 mm in the anterior right upper lobe on image 138; these appear without significant change from 12/17/2023. Mediastinum: The visualized thyroid gland is unremarkable. There is a region of hypoattenuation adjacent to the distal portion of the left IJ port catheter suspicious for venous thrombus in the lower internal jugular vein and proximal brachiocephalic vein. The catheter appears to loop in the internal jugular vein. There are subcentimeter mediastinal lymph nodes within the range of normal variation. Cardiac size is within normal limits; no pericardial effusion. The aorta is unremarkable. Pleura: There is no significant effusion. No pleural mass or thickening. Chest Wall/Axilla: Unremarkable. ABDOMEN/PELVIS: Liver, Gallbladder, Biliary Tree: Multiple mildly hypoattenuating hepatic lesions are redemonstrated in the anterior left hepatic lobe. Largest of these measures approximately 2.2 x 1.6 cm the falciform ligament, previously 2.9 x 1.8 cm on 11/26/2023. Remaining lesions measure up to approximately 1.3 cm in diameter. Several of these appear more distinct than on the prior examination, though some differences could potentially be due to the differences in post contrast timing. No biliary ductal dilatation is present. The gallbladder is unremarkable with no evidence of radiopaque gallstones, gallbladder wall thickening, or pericholecystic inflammatory changes. Pancreas: No definite focal abnormality is seen. No peripancreatic stranding. Pancreatic duct is nondilated. Spleen: Borderline enlarged. Adrenal Glands: Right adrenal gland is unremarkable. Redemonstrated left adrenal nodule measuring approximately 1.0 cm. Kidneys and Ureters: Bilateral nephrograms are symmetric. No hydronephrosis or obstructing calculus identified. Bladder: Unremarkable. Gastrointestinal Tract: No evidence of bowel obstruction or significant wall thickening. The appendix is unremarkable. No free fluid or free air is seen. Abdominal Wall: No hernia is demonstrated. Lymphovascular Structures: Lymph nodes: Normal. Vascular: Mild atherosclerotic calcification. Pelvic Viscera: Right adnexal cyst measures 3.9 x 2.9 cm in the axial plane, similar to prior. OSSEOUS STRUCTURES: Unremarkable. CT/CT abdomen pelvis w IV con IMPRESSION: 1. Hypoattenuating region adjacent to the distal portion of the left IJ port catheter, suspicious for venous thrombus within the lower internal jugular vein and brachiocephalic vein. 2. Multiple hepatic lesions are redemonstrated. The largest of these measures up to approximately 2.2 cm in diameter, previously 2.9 on 11/26/2023. Any of the remaining hepatic lesions appear more distinct than on the prior examination, though some differences could potentially be due to the differences in post contrast timing and direct comparison of size is limited. 3. No significant change in appearance of several bilateral lung nodules since 12/17/2023. 4. Stable appearance of left adrenal nodule.
--- NOTE | ~2024-02-21 | US_ITS ---
EXAMINATION: US ABDOMEN LIMITED CLINICAL INFORMATION: Right upper quadrant pain. COMPARISON: CT scan abdomen and pelvis 11/26/2023, abdominal ultrasound 12/18/2022 TECHNIQUE: Real-time imaging of the right upper quadrant abdominal viscera. FINDINGS: PANCREAS: Normal head and body, the tail is obscured by bowel gas. LIVER: The liver is normal in size. The liver contour is normal. There is diffuse increased liver parenchymal echogenicity, consistent with hepatic steatosis. There are multiple masses, the largest is in the right lobe and measures 5.3 x 4.8 x 3.8 cm. There is no intrahepatic biliary duct dilatation seen. GALLBLADDER: Normal. The gallbladder is physiologically distended without evidence of stones, sludge, polyps, wall thickening or pericholecystic fluid. The patient reports tenderness while scanning over the gallbladder. COMMON BILE DUCT: Normal in caliber measuring 0.2 cm in diameter. RIGHT KIDNEY: Normal. No hydronephrosis. No renal calculi or focal parenchymal lesions. The kidney measures 10.8 cm in maximum dimension. FREE FLUID: None. US/US abdomen limited IMPRESSION: 1. Hepatic steatosis. 2. Multiple hepatic masses, the largest is in the right lobe and measures 5.3 x 4.8 x 3.8, in this patient with biopsy-proven hepatic metastatic disease. 3. The patient reports tenderness during scanning over the gallbladder, however, there is no evidence of cholecystitis.
--- NOTE | 2024-02-21 12:50 | ED.GENADULT ---
HPI - General Adult General Chief complaint: Abdominal Pain Stated complaint: R side abd pain-stage 4 pancreatic cancer Time Seen by Provider: 02/21/24 19:06 Source: patient Mode of arrival: ambulatory Limitations: no limitations History of Present Illness HPI narrative: Patient comes to the emergency room complaining of right upper quadrant pain. Patient states that she is known to have stage IV pancreatic cancer, has had multiple doses of chemotherapy. Patient states that at this time, she has on an ?chemotherapy summer vacation and is hoping to stay off of chemo for the summer. Patient states that she was being prescribed oxycodone 5 mg but it was not helping control the pain. Patient denies nausea vomiting, had 1 episode of loose stool. Patient states that yesterday she woke up sweaty, but denies any fever. Related Data Home Medications ?Medication ?Instructions ?Recorded ?Confirmed metoprolol tartrate 25 mg tablet 25 mg PO BID 01/14/21 02/01/24 nitroglycerin 0.4 mg sublingual 0.4 mg sublingual Q5M PRN Chest 01/14/21 02/01/24 tablet Pain aripiprazole 10 mg tablet (Abilify) 10 mg PO DAILY psychosis 01/16/22 02/01/24 hydroxyzine HCl 10 mg PO DAILY PRN Anxiety 02/15/23 02/01/24 multivitamin with minerals-folic 0.4 tab PO DAILY 08/12/23 02/01/24 acid 0.4 mg tablet (One-A-Day Women's 50 Plus) Previous Rx's ?Medication ?Instructions ?Recorded blood-glucose meter (FreeStyle #1 ea 12/25/22 [place] Lite kit) nicotine 14 mg/24 hr daily 1 patch transdermal Q24H #30 ea 08/24/23 transdermal patch (Nicoderm CQ) ondansetron 8 mg disintegrating 8 mg PO Q8H #50 tabs 08/24/23 tablet lidocaine 5 % topical patch 2 patch topical DAILY #10 ea 09/10/23 (Lidoderm) dexamethasone 4 mg tablet 4 mg PO BID #100 tabs 09/28/23 oxycodone 5 mg tablet 5 mg PO Q4H PRN Breakthrough Pain, 10/11/23 Mild #80 tabs loperamide 2 mg tablet (Imodium 2 mg PO Q4H PRN Diarrhea #60 tabs 11/09/23 A-D) pantoprazole 40 mg tablet,delayed 40 mg PO DAILY 90 days #90 tabs 11/10/23 release blood sugar diagnostic (FreeStyle #200 ea 11/14/23 Lite Strips) apixaban 5 mg (74 tabs) tablets in 5 mg PO BID #74 ea 01/20/24 a dose pack (EntrenaYa DVT-PE Treat 30D Start) albuterol sulfate 90 mcg/actuation 1 inh inhalation QID #2 grams 02/01/24 aerosol inhaler (ProAir HFA) oxycodone 5 mg tablet 5 mg PO Q4H PRN Breakthrough Pain, 02/01/24 Moderate #60 tabs diclofenac sodium 3 % topical gel 1 appl topical BID #45 grams 02/14/24 gabapentin 300 mg capsule 300 mg PO BEDTIME #30 caps 02/14/24 oxycodone 10 mg tablet 10 mg PO Q8H PRN pain #10 tabs 02/22/24 polyethylene glycol 3350 17 17 g PO DAILY PRN laxative effect 02/22/24 gram/dose oral powder (Miralax) #238 grams Allergies Allergy/AdvReac Type Severity Reaction Status Date / Time bee pollen [BEE STINGS] Allergy Severe ANAPHYLAXIS Verified 02/21/24 12:56 Penicillins Allergy Intermediate Unknown Verified 02/21/24 12:53 danazol Allergy Unknown hand Verified 02/21/24 12:53 swelling codeine AdvReac Mild Nausea Verified 02/21/24 12:53 omeprazole [From Prilosec] AdvReac Mild Unknown Verified 02/21/24 12:53 sertraline [Zoloft] AdvReac Unknown increasedi Verified 02/21/24 12:53 rritability Review of Systems Review of Systems: Constitutional : No Weight loss, No Fever, No Chills, No Night Sweats, No Fatigue, No Malaise ENT/Mouth : No Hearing loss, No Ear Pain, No Nasal Congestion, No Sinus Pain, No Hoarseness, No sore throat, No Rhinorrhea, No Swallowing Difficulty Eyes: No Eye Pain, No Swelling, No Redness, No Foreign Body, No Discharge, No Vision Changes Cardiovascular : No Chest Pain, No SOB, No Dyspnea on Exertion, No Orthopnea, No Edema, No Palpitations Respiratory : No Cough, No Sputum, No Wheezing, No Smoke Exposure, No Dyspnea Gastrointestinal : No Nausea, No Vomiting, 1 episode of diarrhea, complaining of right upper quadrant pain Genitourinary : no irregular bleeding, No Dysuria, No Urinary Frequency, No Hematuria, No Urinary Incontinence, No Urgency, No Flank Pain, No Urinary Flow Changes, No Hesitancy Musculoskeletal : No joint pain, No Myalgias, No Joint Swelling Skin : No Skin Lesions, No rash Neuro : No Weakness, No Numbness, No Paresthesias, No Loss of Consciousness, No Dizziness, No Headache Psych : No Anxiety/Panic, No Depression, No SI/HI/AH/VH, No Social Issues, Heme/Lymph: No Bruising, No Bleeding,No Lymphadenopathy Endocrine : No Polyuria, No Polydipsia, No Temperature Intolerance PMFSH Past Medical History Medical History Pancreatic carcinoma metastatic to liver Impaired fasting glucose Skin lesion of left upper extremity Diastolic dysfunction Hx of lipoma Hx of cyst of breast Invasive ductal carcinoma of left breast Family history of breast cancer gene mutation in first degree relative Exertional dyspnea Surgical History History of lumpectomy of left breast Endometriosis History of excision of mass Family History Family History Mother Breast cancer, Onset Age: 38 Father CAD (coronary artery disease) Hyperlipidemia HTN (hypertension) History of cardiac defibrillator placement Pacemaker Family/Other Lymphoma Paternal Grandmother Dementia Sister Substance use disorder Mental health disorder Social History Social History Household Members: Family Housing: House Are you a primary manager long term care to a significant other at home: No Do you presently have visiting nurse or other home services: No Alcohol intake: current Alcohol intake frequency: does not drink Patient Tobacco Use Status: Current everyday Tobacco user Tobacco use type: Cigarette Cigarette Packs Per Day: 0.5 Cigarettes Per Day: 10 Smoked in Last 30 Days: Yes e-Cigarette/Vaping Use: Never Used Use of substances other than those prescribed or required for medical reasons: No Substance Use Type: Marijuana Advance Directives: Yes Advance Directives on File: Yes Advance Directives Date on File: 11/26/21 Do you have a plan to hurt others: No Plan service: No Current occupational status: unemployed Cognitive needs: No Hearing needs: No Vision needs: No Physical Exam ED Vital Signs: Vital Signs - 24 hr 02/21/24 12:53 02/21/24 19:04 02/21/24 21:21 Temperature 98.3 F 99.0 F Pulse Rate 108 H 106 H 103 H Respiratory Rate 18 16 16 Blood Pressure 117/81 105/68 110/70 Pulse Oximetry 97 95 94 Oxygen Delivery Method Room Air Room Air Room Air BMI result Body Mass Index 26.3 Const Other: Appearance: Alert. Oriented X3. No acute distress. Eyes: Pupils equal, round and reactive to light. ENT: Pharynx normal. Neck: Normal inspection. Neck supple. No lymph nodes noted. No crepitus CVS: Normal heart rate and rhythm. Pulses normal. Normal S1 and S2 Respiratory: No respiratory distress. Breath sounds normal. No Wheezing. No rales Abdomen: Soft , tenderness to palpation to right upper quadrant pain, negative Soriano sign Skin: Skin warm and dry. Normal skin color. Normal skin turgor. Extremities: No lower extremity edema. No Lacerations. No Rash Neuro: Oriented X 3. No motor deficit. No sensory deficit. Moving all extremities. No slurred speech. CN 2 through 12 grossly intact Psych: calm, cooperative, normal affect Course Course Course Narrative: This is an RME: Additional HPI, ROS, PE not included below will be deferred to primary provider. 48 yo f with pmhx of stage 4 pancreatic carcinoma presents with r sided upper quadrant pain since yesterday morning. Worsening since last night. Plan- labs, imaging Medications Administered Discontinued Medications Generic Name Dose Route Start Last Admin Trade Name Gemini PRN Reason Stop Dose Admin Fentanyl 25 mcg 02/21/24 23:13 02/21/24 23:39 Fentanyl Citrate/Pf 100 Mcg/2 Ml Vial IVPUSH 02/21/24 23:14 25 mcg ONCE ONE Administration Protocol Morphine Sulfate 4 mg 02/21/24 19:20 02/21/24 19:35 Morphine Sulfate 4 Mg/Ml Cartridge IVPUSH 02/21/24 19:21 4 mg ONCE ONE Administration Protocol Ondansetron HCl 4 mg 02/21/24 19:20 02/21/24 19:36 Ondansetron Hcl 4 Mg/2 Ml Vial IVPUSH 02/21/24 19:21 4 mg ONCE ONE Administration Medical Decision Making Medical Decision Making [facility] Narrative: -an ultrasound was ordered from triage. Seems that 1 of the masses from the liver that were previously seen on CT scan is bigger than before. A CT scan was ordered. The CT scan does not show any significant change on the masses. If anything, the mass looks smaller. There are no significant changes in the nodules of the chest. However, there is a new venous thrombus within the lower internal jugular vein and brachiocephalic vein adjacent to the distal portion of the left IJ port catheter. -patient states that she is compliant with her Eliquis. Patient states that she had a PE and a jugular venous thrombus on the right side. The port was therefore switched to the left. Patient now has a blood clot on the left side. -I discussed the patient and imaging with Dr. Dodd from Hematology/Oncology. Recommendations: 1 dose of therapeutic Lovenox and have the patient call Dr. Torres tomorrow for further evaluation and treatment. -patient agrees with plan. -patient taking oxycodone without significant relief. Discussed with the patient that we will go ahead and increase her dose of oxycodone. Differential Diagnosis Differential Diagnoses: The differential diagnosis associated with the presentation includes (Worsening metastatic disease, new DVT, acute cholecystitis) Admission/Observation Consideration of admission/observation: Escalation of care including admission/observation considered (Given that patient has new DVTs while already on Eliquis, admission/observation was considered.) Consult Healthcare Provider Management of the patient was discussed with: Ring Striker Lab Data [facility] Lab Attestation statement: I reviewed the patient's lab results. 02/21/24 15:35 02/21/24 15:35 Labs: Lab Results 02/21/24 02/21/24 02/21/24 Range/Units 15:35 20:54 21:33 WBC 13.1 H (4.8-10.8) X10*3/uL RBC 4.04 L (4.20-5.50) X10*6/uL Hgb 13.2 (12.0-16.0) g/dl Hct 38.0 (37.0-47.0) % MCV 94.1 (80.0-98.0) fL MCH 32.7 (27.0-33.0) pg MCHC 34.7 (31.0-35.0) g/dl RDW 14.7 (11.0-16.0) % Plt Count 116 L (160-400) X10*3/uL MPV 9.6 (9.4-12.3) fL Immature Gran % (Auto) 0.7 H (0.0-0.4) % Neut % (Auto) 78.3 H (45-73) % Lymph % (Auto) 13.5 L (20-40) % Moffat % (Auto) 7.2 (2-11) % Eos % (Auto) 0.0 (0-4) % Baso % (Auto) 0.3 (0-2) % Lymph # (Auto) 1.8 (1.2-4.9) X10*3/uL Moffat # (Auto) 0.9 (0.1-1.2) X10*3/uL Eos # (Auto) 0.0 (0.0-0.4) X10*3/uL Baso # (Auto) 0.0 (0.0-0.2) X10*3/uL Abs Immat Gran (auto) 0.09 H (0.00-0.03) X10*3/uL Absolute Neuts (auto) 10.2 H (2.0-8.3) x10*3/uL Absolute Nucleated RBC 0.000 (0.0-0.012) X10*3/uL Nucleated RBC % (auto) 0.0 (0.0-0.2) /100WBC Sodium 137 (135-145) mmol/L Potassium 3.4 (3.3-5.1) mmol/L Chloride 99 (96-108) mmol/L Carbon Dioxide 27 (22-29) mmol/L Anion Gap 14 (12-20) BUN 8 L (9-16) mg/dL Creatinine 0.74 (0.5-1.4) mg/dL Estim Creat Clear Calc 80.6 Estimated GFR > 60 Random Glucose 139 H (60-115) mg/dL Calcium 9.7 (8.4-10.2) mg/dL Total Bilirubin 0.4 (0.0-1.0) mg/dL AST 30 (5-31) U/L ALT 27 (0-31) U/L Alkaline Phosphatase 140 H (39-117) U/L Total Protein 7.1 (6.5-8.0) g/dL Albumin 4.0 (3.5-5.0) g/dL Lipase 25 (8-78) U/L Beta HCG, Quant 7 mIU/mL Urine Color Yellow Urine Appearance Clear Urine pH 8.0 (5.0-9.0) Ur Specific [place] >= 1.030 H (1.005-1.025) Urine Protein Negative (Neg-Trace) mg/dL Urine Glucose (UA) Negative (Negative) mg/dL Urine Ketones Negative (Negative) mg/dL Urine Blood Negative (Negative) Urine Nitrite Negative (Negative) Ur Leukocyte Esterase Negative (Negative) Influenza Type A (PCR) NEGATIVE (Negative) Influenza Type B (PCR) NEGATIVE (Negative) RSV RNA Qual (PCR) NEGATIVE (Negative) SARS-CoV-2 RNA (RT-PCR) NEGATIVE (Negative) Independent Interpretation I performed an independent interpretation of an: Ultrasound and CT Scan Radiology Impression Discussion of test interpretation with radiology: I have reviewed the radiologist's reading. Radiologist Impression: 1. Hypoattenuating region adjacent to the distal portion of the left IJ port catheter, suspicious for venous thrombus within the lower internal jugular vein and brachiocephalic vein. 2. Multiple hepatic lesions are redemonstrated. The largest of these measures up to approximately 2.2 cm in diameter, previously 2.9 on 11/26/2023. Any of the remaining hepatic lesions appear more distinct than on the prior examination, though some differences could potentially be due to the differences in post contrast timing and direct comparison of size is limited. 3. No significant change in appearance of several bilateral lung nodules since 12/17/2023. 4. Stable appearance of left adrenal nodule 1. Hepatic steatosis. 2. Multiple hepatic masses, the largest is in the right lobe and measures 5.3 x 4.8 x 3.8, in this patient with biopsy-proven hepatic metastatic disease. 3. The patient reports tenderness during scanning over the gallbladder, however, there is no evidence of cholecystitis. Independent Historian Clinical information obtained from an independent historian. History obtained from or confirmed by: Friend Prescription Management I considered prescription management with: Pain Medication Chronic Conditions Patient?s care impacted by: Cancer Critical Care Time Critical Care Time Critical Care Time: Yes Total Critical Care Time: 60 Attestation: I have personally provided critical care time. Time includes review of lab data, radiology results, discussion with consultants, and monitoring for potential decompensation. Intervention performed as documented. Discharge Plan Discharge Clinical Impression: Abdominal pain, Internal jugular vein thrombosis Patient Disposition: Home, Self-Care Instructions: Deep Vein Thrombosis (ED), Abdominal Pain (ED) Additional Instructions: Please follow-up with Dr. Torres 1st thing in the morning. If you have any worsening or new symptoms, please return to the emergency room or call 911 Prescriptions: New oxycodone 10 mg tablet 10 mg PO Q8H PRN (Reason: pain) Qty: 10 0RF Rx Instructions: Partial Fill upon patient request. polyethylene glycol 3350 [Miralax] 17 gram/dose powder 17 g PO DAILY PRN (Reason: laxative effect) Qty: 238 0RF No Action oxycodone 5 mg Tablet 5 mg PO Q4H PRN (Reason: Breakthrough Pain, Mild) Qty: 80 0RF Rx Instructions: Partial Fill upon patient request. pantoprazole 40 mg tablet,delayed release (DR/EC) 40 mg PO DAILY 90 Days Qty: 90 3RF (DME) FreeStyle Lite Strips Strip See Rx Instructions .Route Qty: 200 1RF Rx Instructions: check fasting glucose qd ac hydroxyzine HCl 10 mg tablet 10 mg PO DAILY PRN (Reason: Anxiety) ondansetron 8 mg Tablet,Disintegrating 8 mg PO Q8H Qty: 50 4RF nicotine [Nicoderm CQ] 14 mg/24 hr Patch 24 Hour 1 patch TRANSDERMAL Q24H Qty: 30 2RF lidocaine [Lidoderm] 5 % Adhesive Patch,Medicated 2 patch TOPICAL DAILY Qty: 10 4RF Rx Instructions: leave on most painful area for up to 12 hrs dexamethasone 4 mg Tablet 4 mg PO BID Qty: 100 3RF Rx Instructions: Take 4 mg p.o. b.i.d. Day 2 and Day 3 of chemotherapy q.2 weeks. loperamide [Imodium A-D] 2 mg Tablet 2 mg PO Q4H PRN (Reason: Diarrhea) Qty: 60 4RF Rx Instructions: administer after each loose stool until symptoms controlled; do not exceed 8 mg per 24 hrs Eliquis DVT-PE Treat 30D Start 5 mg (74 tabs) Tablets,Dose Pack 5 mg PO BID Qty: 74 0RF Rx Instructions: Take 10 mg p.o. b.i.d. for 7 days, Then 5 mg p.o. b.i.d. albuterol sulfate [ProAir HFA] 90 mcg/actuation Hfa Aerosol Inhaler 1 inh INHALATION QID Qty: 2 3RF oxycodone 5 mg Tablet 5 mg PO Q4H PRN (Reason: Breakthrough Pain, Moderate) Qty: 60 0RF Rx Instructions: Partial Fill upon patient request. diclofenac sodium 3 % Gel 1 appl TOPICAL BID Qty: 45 3RF gabapentin 300 mg Capsule 300 mg PO BEDTIME Qty: 30 3RF metoprolol tartrate 25 mg tablet 25 mg PO BID nitroglycerin 0.4 mg tablet, sublingual 0.4 mg sublingual Q5M PRN (Reason: Chest Pain) Rx Instructions: do not exceed 3 doses per episode aripiprazole [Abilify] 10 mg tablet 10 mg PO DAILY multivit with min-folic acid [One-A-Day Women's 50 Plus] 0.4 mg tablet 0.4 tab PO DAILY (DME) blood-glucose meter [FreeStyle [place] Lite] Kit See Rx Instructions .Route Qty: 1 0RF Rx Instructions: check fasting glucose once a day Print Language: Filipino
[2024-02-21 12:53] VITALS: BP 117/81; PULSE 108; RESP 18; TEMP 36.8; O2SAT 97; BMI 26.3
[2024-02-21 15:38] LABS: MANUAL DIFF FLAG NO
[2024-02-21 15:42] LABS: Basophils Percent Auto 0.3 % (0-2); Hemoglobin 13.2 g/dl (12.0-16.0); Imm Gran Abs Auto 0.09 X10*3/uL (0.00-0.03); Imm Gran Pct Auto 0.7 % (0.0-0.4); Lymphocytes Absolute Auto 1.8 X10*3/uL (1.2-4.9); Lymphocytes Percent Auto 13.5 % (20-40); Mean Corpuscular HGB Conc 34.7 g/dl (31.0-35.0); Mean Corpuscular Hemoglobin 32.7 pg (27.0-33.0); Mean Corpuscular Volume 94.1 fL (80.0-98.0); Mean Platelet Volume 9.6 fL (9.4-12.3); Monocytes Absolute Auto 0.9 X10*3/uL (0.1-1.2); Monocytes Percent Auto 7.2 % (2-11); Neutrophils Absolute Auto 10.2 x10*3/uL (2.0-8.3); Neutrophils Percent Auto 78.3 % (45-73); Platelet Count 116 X10*3/uL (160-400); Red Blood Count 4.04 X10*6/uL (4.20-5.50); Red Cell Distribution Width 14.7 % (11.0-16.0); White Blood Count 13.1 X10*3/uL (4.8-10.8)
[2024-02-21 16:02] LABS: Alanine Aminotransferase 27 U/L (0-31); Alkaline Phosphatase 140 U/L (39-117); Anion Gap 14 (12-20); Aspartate Amino Transferase 30 U/L (5-31); Bilirubin Total 0.4 mg/dL (0.0-1.0); Blood Urea Nitrogen 8 mg/dL (9-16); Calcium 9.7 mg/dL (8.4-10.2); Carbon Dioxide 27 mmol/L (22-29); Chloride 99 mmol/L (96-108); Creatinine Clr Calc Pharmacy 80.6; Estimated Glomerular Filt Rate > 60; Glucose Random 139 mg/dL (60-115); Lipase 25 U/L (8-78); Potassium 3.4 mmol/L (3.3-5.1); Sodium 137 mmol/L (135-145); Total Protein 7.1 g/dL (6.5-8.0)
[2024-02-21 16:03] LABS: HCG Quantitative 7 mIU/mL
[2024-02-21 19:04] VITALS: BP 105/68; PULSE 106; RESP 16; O2SAT 95
[2024-02-21] MEDS: Morphine Sulfate 4 MG/ML CARTRIDGE IVPUSH (19:35)
[2024-02-21] MEDS: ondansetron HCL 4 MG/2 ML VIAL IVPUSH (19:36)
[2024-02-21 21:04] LABS: Appearance Urine Clear; Color Urine Yellow; Glucose Urine UA Negative (Negative); Leukocyte Esterase Urine Negative (Negative); Nitrite Urine Negative (Negative); Specific Gravity - Urine >= 1.030 (1.005-1.025); Urine Blood Negative (Negative); Urine Ketones Negative (Negative); Urine Protein Negative (Neg-Trace)
[2024-02-21 21:21] VITALS: BP 110/70; PULSE 103; RESP 16; TEMP 37.2; O2SAT 94
[2024-02-21 22:15] LABS: Influenza A PCR NEGATIVE (Negative); Influenza B PCR NEGATIVE (Negative); Resp Syncy Virus RNA Qual PCR NEGATIVE (Negative); SARS COV2 PCR INHOUSE NEGATIVE (Negative)
[2024-02-21] MEDS: fentaNYL citrate/PF 100 MCG/2 ML VIAL 25 MCG IVPUSH (23:39)
--- NOTE | 2024-02-21 23:42 | PC.NURSE ---
Medicated per MAR.
[2024-02-22 00:44] VITALS: BP 100/62; PULSE 99; RESP 18; TEMP 36.6; O2SAT 92
[2024-02-22] MEDS: Enoxaparin Sodium 80 MG/0.8 ML SYRINGE 70 MG SUBCUT (01:04)
[2024-02-22 01:11] VITALS: BP 117/72; PULSE 96; RESP 16; TEMP 36.7; O2SAT 96
== END 2024-02-22 01:12 | disposition home or self-care (01) ==
PROVIDERS: Physician Assistant; Emergency Provider Emergency Medicine; PCP Internal Medicine
DX: R10.11 Right upper quadrant pain (principal); C25.9 Malignant neoplasm of pancreas, unspecified; R10.2 Pelvic and perineal pain; Z03.818 Encounter for observation for suspected exposure to other biological agents ruled out; Z79.899 Other long term (current) drug therapy
CPT/HCPCS: 0241U; 36415; 71260; 74177; 76705; 80053; 81003; 83690; 84702; 85025; 96372; 96374; 96375; 99284; J1650; J2270; J2405; J3010

== ENCOUNTER 2024-03-01 14:25 | Outpatient (REF) | payer OTHER, SELFPAY ==
--- NOTE | ~2024-03-01 | US_ITS ---
EXAMINATION: US VENOUS WITH DOPPLER UPPER EXTREMITY, LEFT CLINICAL INFORMATION: Left IJ thrombus COMPARISON: Previous TECHNIQUE: Ultrasound of the upper extremity is performed using compression sonography and color and pulse Doppler flow with assessment of augmentation of flow. There is also imaging and Doppler assessment of the jugular and subclavian veins. Spectral analysis with color-flow imaging is performed. FINDINGS: There is a catheter in the left internal jugular vein. The left internal jugular, subclavian, axillary, brachial and basilic veins and radial and ulnar veins in the forearm are patent. No evidence of DVT is seen. US/US venous duplex UE LT IMPRESSION: No DVT demonstrated in the left upper extremity
== END 2024-03-01 14:26 | disposition home or self-care (01) ==
LOC: HO.US 14:25
PROVIDERS: PCP Internal Medicine; Visit Provider Internal Medicine Medical Oncology
DX: I82.622 Acute embolism and thrombosis of deep veins of left upper extremity (principal)
CPT/HCPCS: 93971

== ENCOUNTER 2024-04-13 13:19 | Outpatient (REF) | payer OTHER, SELFPAY ==
--- NOTE | ~2024-04-13 | FL_ITS ---
EXAMINATION: XR PORT INJECTION WITH RADIOLOGICAL SUPERVISION AND INTERPRETATION CLINICAL INFORMATION: Port not aspirating blood. Pancreatic cancer COMPARISON: None available. TECHNIQUE: AP fluoroscopic image of the chest was performed to demonstrate the position of the port catheter. FINDINGS: The left-sided port catheter has severely retracted to the left innominate vein, with the majority of the catheter located within the left internal jugular vein. FL/FL cva device check w fluoro IMPRESSION: Left-sided port catheter has retracted back into the left innominate vein, with the majority the catheter located within the left internal jugular vein. The patient will be scheduled for removal of this port and placement of a new port. These findings were discussed the patient's oncologist. This procedure was performed by Martin Hay PA-C, and supervised by Dr. Tyler
== END 2024-04-13 13:20 | disposition home or self-care (01) ==
LOC: HO.XRAY 13:19
PROVIDERS: Visit Provider Internal Medicine Medical Oncology
DX: Z95.828 Presence of other vascular implants and grafts (principal)
CPT/HCPCS: 36598

== ENCOUNTER → 2024-04-13 13:45 | Outpatient (BNV) | payer OTHER, SELFPAY | PROVIDERS: Visit Provider Physician Assistant Surgical | DX: C25.9 Malignant neoplasm of pancreas, unspecified (principal) | CPT/HCPCS: 36561; 76937; 77001; 99152 ==

== ENCOUNTER 2024-04-24 15:02 | Outpatient (REF) | payer OTHER, SELFPAY ==
--- NOTE | ~2024-04-24 | CT_ITS ---
EXAMINATION: CT abdomen pelvis w IV con, CT chest w IV con CLINICAL INFORMATION: Reason for Exam PANCREATIC CANCER, INCREASING PAIN COMPARISON: CT chest, abdomen pelvis 02/21/2024 TECHNIQUE: IV contrast and CT of the chest, abdomen pelvis Intravenous Contrast: Omnipaque [address] examination was performed using dose optimization techniques as appropriate, variously including the following: *Automated exposure control *Adjustment of mA and/or kV according to patient size (this includes techniques or standardized protocols for targeted exams where dose is matched to indication/reason for exam; i.e. extremities or head) *Use of iterative reconstruction technique DLP: 327 mGy-cm FINDINGS: Lungs and pleura: Multiple bilateral noncalcified pulmonary nodules ranging in size up to 11 mm diameter (left lower lobe pulmonary nodule series 7 image 225) are increased in size and number compared with 02/21/2024. No pleural effusions or pneumothoraces identified. Incidental note made of paraseptal emphysematous changes. Mediastinum: Within the visualized pulmonary arterial system: No intraluminal filling defects noted to suggest pulmonary emboli. The thoracic aorta is normal in caliber. Visualized thyroid is normal in appearance. A left paratracheal lymph node measuring 1.1 cm x 1.5 cm is newly identified (series 3 image 7) and is suspicious for malignant lymphadenopathy. CHEST WALL: No axillary lymphadenopathy identified. A left pectoral tunneled internal jugular vein catheter is noted. No findings suspicious for thrombus noted within the visualized left internal jugular vein. Liver and biliary system: Innumerable hypodense lesions consistent with metastatic disease are present throughout the liver and are present in a nearly confluent configuration increased in size and number compared with 02/21/2024. No intrapelvic biliary duct dilatation. The gallbladder is not visualized. Pancreas: An ill-defined hypodense lesion is present in the body of the pancreas measuring approximately 2.5 cm in diameter extending superiorly and partially encasing the common hepatic artery which remains patent. Spleen: Normal. Adrenal glands: Left adrenal nodule measuring 1 cm in diameter is again noted. Kidneys: No hydronephrosis or perinephric inflammatory changes. No urolithiasis. Urinary bladder: Decompressed. Gastrointestinal system: Mild dependent free intraperitoneal fluid is present in the pelvis. Normal appendix. No intestinal dilatation or mural thickening. No free intraperitoneal gas. Abdominal wall: No hernias. Lymphovascular structures: Confluent bulky periaortic and pericaval retroperitoneal lymphadenopathy is newly identified. Enlarged celiac lymph nodes are newly identified measuring up to 1.2 cm in short axis diameter. Pelvic viscera: Normal appearance of the uterus. Unchanged 2.5 cm low-density focus within the right ovary which may represent a cyst and requires no additional imaging follow-up specifically on the basis of this examination. Osseous structures: CT/CT abdomen pelvis w IV con IMPRESSION: 1. Increased conspicuity and size of a lesion centered within the body of the pancreas suspicious for primary pancreatic adenocarcinoma. The lesion partially encases but does not obstruct the adjacent common hepatic artery. 2. Innumerable hepatic metastases increased in size and number compared with 02/21/2024. 3. Multiple pulmonary nodules consistent with metastatic disease increased in size and number compared with 02/21/2024. 4. Newly identified lymphadenopathy. Newly identified left paratracheal, celiac and abdominal/pelvic pericaval and periaortic lymphadenopathy. 5. Unchanged 1.0 cm left adrenal nodule compared with 02/21/2024. 6. The previously noted thrombus adjacent to a catheter within the left internal jugular vein noted on the 02/21/2024 examination is no longer identified and may have resolved.
[2024-04-24] MEDS: iohexoL 350 MG/ML 75 ML INFUS..BTL 85 ML IV (15:41)
== END 2024-04-24 15:03 | disposition home or self-care (01) ==
LOC: HO.CT 15:02
PROVIDERS: Visit Provider Internal Medicine Medical Oncology
DX: C25.9 Malignant neoplasm of pancreas, unspecified (principal); C78.7 Secondary malignant neoplasm of liver and intrahepatic bile duct
CPT/HCPCS: 71260; 74177; Q9967

== ENCOUNTER 2024-04-25 11:54 | Day surgery (SDC) | payer OTHER, SELFPAY ==
--- NOTE | ~2024-04-25 | IR_ITS ---
CLINICAL HISTORY: Metastatic pancreatic cancer. Current left-sided port is is not aspirating blood. Imaging demonstrates the catheter tip has retracted into the left innominate vein. She presents for placement of a new port, and removal of the nonfunctioning port. PROCEDURES: 1. Real-time ultrasound-guided access into the left internal jugular vein after documentation of selected vessel patency, and permanent image storing in the patient records. 2. Placement of a 6.6 [place] single-lumen power port. CLINICIAN: Martin Hay PA-C MEDICATIONS: - Versed 1.5 mg, Fentanyl 75 mcg, Lidocaine 1% 10 mL SQ -Antibiotics: Clindamycin 600 mg -For additional details, please see nursing flowsheet. Complications: None. Estimated blood loss: <5 ml Specimens: None. Contrast: None. Fluoroscopy time: 1.9 min MODERATE SEDATION TIME: 50 min PROCEDURE NOTE: The procedure, risks, benefits, and alternatives were carefully explained to the patient and written informed consent was obtained. Preliminary ultrasound imaging, and recent CT of the chest demonstrate no usable right neck veins. It was decided placed a new port in the left chest. The patient was placed supine on the fluoroscopy table. A timeout was performed. The left neck and chest was prepped and draped in usual sterile fashion. Maximum barrier technique was utilized. Local anesthesia was administered to the access site with 1% lidocaine. Under ultrasound guidance, the left internal jugular vein was accessed with a 5 fr micropuncture set. A 0.035 in wire was advanced into the IVC. A peel-away sheath was advanced over the wire and into the SVC, and the wire was removed. Next, subcutaneous lidocaine was administered to the chest. The port pocket was created after the skin incision, utilizing blunt dissection. Using blunt dissection, a subcutaneous tunnel was created that connects from the port pocket to the venotomy site. Through the peel-away sheath, the 6.6 [place] port catheter was placed. The catheter position was verified with fluoroscopy to be at the superior vena cava/right atrial junction. The port was connected to the catheter and was placed in the pocket. The venotomy site was closed with a 3-0 Vicryl subcutaneous suture. The port incision site was closed with interrupted 3-0 Vicryl subcutaneous sutures and surgical glue. The port was tested, flushed, and packed with heparin per routine protocol. The nonfunctioning left-sided port was then removed. This will be dictated in a separate report. The patient tolerated the procedure well. The patient was stable after the procedure and was transferred to the PACU. The procedure was performed under moderate sedation and with a dedicated nurse with continuous monitoring of vital signs. A permanent image of the ultrasound the neck and fluoroscopic image of the chest was saved and sent to PACS. FINDINGS: 1. Patent left internal jugular vein 2. Placement of a 6.6 [place] single lumen power port. 3. Port flushes and aspirates very well with a 10 mL syringe. No pneumothorax. IR/IR cvc insert tunnel w prt/tandem mill roller IMPRESSION: Placement of a 6.6 [place] single-lumen power port. PLAN: - The patient will be discharged home when stable by sedation protocol. - Port may be used immediately. This procedure was performed by Martin Hay PA-C, and directly supervised by Dr. Tee
--- NOTE | ~2024-04-25 | IR_ITS ---
Port removal History: Recurrent left-sided port is not aspirated blood. Imaging demonstrates the catheter tip is slightly retracted into the left innominate vein with the majority the catheter positioned in the internal jugular vein. Patient presents for removal of the port. Procedure: The risks and benefits were discussed the patient and the consent was signed. The left anterior chest was prepped and draped in routine sterile fashion. After placement of a new left-sided port, the previous port incision was anesthetized with 1% lidocaine and an incision was made over the previous scar. Utilizing blunt dissection, the port was removed from the chest with the catheter intact. The pocket was irrigated with 50 mL of normal saline. The port pocket was closed with interrupted 3-0 Vicryl sutures in the deep layer and surgical glue to close the skin. The patient tolerated the procedure well. A sterile dressing was applied. This procedure was performed by Martin Hay PA-C, and supervised by Dr. Tee. IR/IR cvc remove tunnel w prt/relay checker Impression: Left port removal
[2024-04-25 12:10] VITALS: BMI 22.4
[2024-04-25 12:30] LABS: INTERNATIONAL NORM RATIO 1.1 (0.9-1.1); Prothrombin Time 13.5 SEC (11.1-13.3)
[2024-04-25 12:32] LABS: Partial Thromboplastin Time 25.6 SEC (26.0-36.8)
[2024-04-25 15:20] VITALS: BP 104/68; PULSE 81; RESP 16; TEMP 36.7; O2SAT 97
[2024-04-25 15:34] VITALS: BP 107/61; PULSE 98; RESP 16; TEMP 36.7; O2SAT 96
--- NOTE | 2024-04-25 15:35 | MHC.SHP ---
Pre-Procedural Eval Section A - 24 Hr Update-Section A only Date of Service: 04/25/24 Section B - Complete if H&P > 30 days Chief Complaint: CHEMO,REMOVE OLD PORTACATH,INSERTION NEW RT Details of Present Illness: 48 y/o female with pancreatic cancer. Her current left port catheter has retracted. She presents for placement of a new port and removal of the old port Relevant Family History (Specify if Yes): No Relevant Social History: None Present Medications: see Short Stay Collaborative assessment Medical History: Significant History History of Previous Operations: Relevant previous surgery/procedure and date(s) Allergies: Allergies Allergy/AdvReac Type Severity Reaction Status Date / Time bee pollen [BEE STINGS] Allergy Severe ANAPHYLAXIS Verified 04/06/24 13:42 Penicillins Allergy Intermediate Unknown Verified 04/06/24 13:42 danazol Allergy Unknown hand Verified 04/06/24 13:42 swelling codeine AdvReac Mild Nausea Verified 04/06/24 13:42 omeprazole [From Prilosec] AdvReac Mild Unknown Verified 04/06/24 13:42 sertraline [Zoloft] AdvReac Unknown increasedi Verified 04/06/24 13:42 rritability Review of Systems Sugical H&P ROS: Negative: Constitution, Cardiovascular and Respiratory and Yes, Specify: Gastrointestinal (abdominal pain) Exam Surgical H&P Exam: Normal: Heart, Normal: Lungs, Normal: Skin and Normal: Neurological Plan Removal of left port Placement of new port (laterality TBD) Time Spent With Patient Time: Total time managing care of this patient today ____ minutes.
== END 2024-04-25 15:45 | disposition home or self-care (01) ==
PROVIDERS: Physician Assistant Surgical; Student in an Organized Health Care Education/Training Program; PCP Internal Medicine; Visit Provider Internal Medicine
DX: Z45.2 Encounter for adjustment and management of vascular access device (principal); C25.9 Malignant neoplasm of pancreas, unspecified; C78.7 Secondary malignant neoplasm of liver and intrahepatic bile duct; C50.412 Malignant neoplasm of upper-outer quadrant of left female breast; Z17.1 Estrogen receptor negative status [ER-]; Z88.0 Allergy status to penicillin; Z88.5 Allergy status to narcotic agent; Z88.8 Allergy status to other drugs, medicaments and biological substances; F17.210 Nicotine dependence, cigarettes, uncomplicated; Z79.899 Other long term (current) drug therapy; Z98.890 Other specified postprocedural states
CPT/HCPCS: 36415; 36561; 36590; 85610; 85730; A4364; C1769; C1788; J0690; J0736; J1642; J1644; J2250; J2310; J3010

== ENCOUNTER → 2024-04-25 13:11 | Outpatient (BNV) | payer OTHER, SELFPAY | PROVIDERS: PCP Internal Medicine; Visit Provider Physician Assistant Surgical | DX: C25.9 Malignant neoplasm of pancreas, unspecified (principal); C78.7 Secondary malignant neoplasm of liver and intrahepatic bile duct | CPT/HCPCS: 36561; 36590; 76937; 77001; 99152 ==

== ENCOUNTER 2024-06-12 08:00 | Outpatient (RCR) | payer MEDICARE, OTHER, MEDICAID, SELFPAY ==
[2021-04-07 09:39] VITALS: BP 106/69; PULSE 72; RESP 14; TEMP 36.4; O2SAT 97; BMI 26.2
--- NOTE | 2021-04-07 10:45 | PM.HEMONCCN ---
Subjective - Subjective Chief complaint: Consult for left breast cancer. Patient: new to practice Consult date: 04/07/21 Requesting Physician: Dr. Enriquez. Primary Care Provider: Carlyn Enriquez MD Medical Summary: DIAGNOSIS: LEFT BREAST CANCER UPPER OUTER QUADRANT. HPI - Consult Narrative Reason for consult: Consult for left breast cancer. Narrative: Marah Rivera is a pleasant 45 year old lady, who had an abnormal mammogram. This was done on ,02/28 and revealed: Left breast has new mass, posterior upper outer quadrant in area of palpable in measuring 1.7 cm. Ultrasound demonstrated: Heterogenous macro lobulated hypoechoic mass posterior upper outer quadrant measurin.8 and 1.4 time 1.7 cm. Left axillary nodes showing normal fatty hilus and normal color. 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 She is here to discuss further treatment options. ROS: She does feel fatigued most of the time. No fever nor chills. Appetite is decent. Weight is stable. She denies headaches. Yesterday she felt a bit dizzy. She has had symptoms of chest pain at rest and on exertion. She gets short of breath on exertion. She has had some cardiac issues. She was seen by Dr. sy fish who diagnosed diastolic dysfunction. She went to Dr. ousmane francois in [place] who did right heart catheterization. He mention some muscular dysfunction/autonomic dysfunction. No treatment was suggested. Clinical trial was offered that she declined. She actually has an appointment with Dr. Brewer, on . She gets occasional heartburn. No nausea vomiting. Denies abdominal pain. She has had diarrhea lately she thinks it is her nerves. She has frequency of micturition. She gets aches and pains. She has anxiety and depression. 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 She still has her regular periods. Family history: Her mom was diagnosed with breast cancer at 38. She lived for 7 years. of metastatic disease. 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 She is not . She has no children. She smokes half a pack a day. She drinks very little alcohol. Review of Systems - Constitutional Reports lack of energy, Reports malaise, Denies weight gain - Eyes Denies system reviewed and no additional complaints, except as documented - ENT Reports system reviewed and no additional complaints, except as documented - Cardiovascular Reports chest pain, Reports chest pain at rest, Reports chest pain with activity, Reports lightheadedness, Reports shortness of breath, Reports shortness of breath with activity, Denies foot swelling - Respiratory Reports no additional respiratory complaints - Gastrointestinal Reports system reviewed and no additional complaints, except as documented, Reports heartburn, Reports diarrhea, Denies constant urge to pass stool - Genitourinary Reports no additional female genitourinary complaints - Musculoskeletal Reports system reviewed and no additional complaints, except as documented - Integumentary/Breasts Skin/Breast: Reports no additional skin complaints - Neurologic Reports system reviewed and no additional complaints, except as documented - Psychiatric Reports system reviewed and no additional complaints, except as documented - Endocrine Reports no additional endocrine complaints - Hematologic/Lymphatic Reports system reviewed and no additional complaints, except as documented - Allergic/Immunologic Reports system reviewed and no additional complaints, except as documented Oncology Screenings - ECOG Performance Status ECOG Performance Status: 0 PMFSH Medical History: Medical History (Last Reviewed 04/17/21 @ 12:21 by Odell Dutta MD) Exertional dyspnea Family history of breast cancer gene mutation in first degree relative Hx of cyst of breast Hx of lipoma Invasive ductal carcinoma of left breast Left breast mass Functional capacity: independent ambulation Patient : No Family History: Family History (Last Reviewed 04/17/21 @ 12:21 by Odell Dutta MD) Mother Breast cancer, Onset Age: 38 Father CAD (coronary artery disease) Hyperlipidemia HTN (hypertension) History of cardiac defibrillator placement Pacemaker Family/Other Lymphoma Paternal Grandmother Dementia Surgical History: Surgical History (Last Reviewed 04/17/21 @ 12:21 by Odell Dutta MD) Endometriosis History of excision of mass Social History: Social History (Last Reviewed 04/17/21 @ 12:21 by Odell Dutta MD) Alcohol History: Alcohol intake: current Alcohol History Details: Alcohol intake frequency: holiday/special occasion Tobacco History: Patient Tobacco Use Status: Current everyday Tobacco Cigarette Packs Per Day: 0.5 Substance Use History: Substance Use Type: Marijuana Home Medications and Allergies Home Medications Medication Instructions Recorded Confirmed Type metoprolol tartrate 25 mg tablet 25 mg PO BID 01/14/21 04/07/21 History nitroglycerin 0.4 mg sublingual 0.4 mg SUBLINGUAL Q5M PRN 01/14/21 04/07/21 History tablet Allergies Allergy/AdvReac Type Severity Reaction Status Date / Time bee pollen [BEE STINGS] Allergy Severe ANAPHYLAXIS Verified 04/17/21 11:39 Penicillins Allergy Intermediate Unknown Verified 04/17/21 11:39 danazol Allergy Unknown hand Verified 04/17/21 11:39 swelling sertraline [Zoloft] AdvReac Unknown increasedi Verified 04/17/21 11:39 rritability codeine AdvReac Unknown nausea Uncoded 02/27/20 00:00 prilosec AdvReac Unknown bloating Uncoded 02/27/20 00:00 Physical Exam Vital signs: Vital Signs Temp 97.6 F 04/07/21 09:39 Pulse 72 04/07/21 09:39 Resp 14 04/07/21 09:39 BP 106/69 04/07/21 09:39 Pulse Ox 97 04/07/21 09:39 Intake & Output 04/06/21 04/07/21 04/07/21 18:59 06:59 18:59 Other: Weight 65.2 kg Weight in Grams 34529 Weight 65.2 kg - Constitutional Present: mild distress - Routine HEENT Exam Head: Present: normocephalic ENT: Present: mucous membranes moist - Routine Neck Exam Present: supple. Absent: lymphadenopathy - Routine Respiratory Exam Present: CTAB - Routine Cardiovascular Exam Cardiovascular: Present: RRR, S1, S2. Absent: rubs, S3, S4 - Routine Abdominal Exam Present: normal bowel sounds, nontender. Absent: diminished bowel sounds, organomegaly - Routine Extremities Exam Absent: tenderness - Routine Skin Exam Present: intact, normal turgor - Routine Neurological Exam Present: alert, oriented X3 - Detailed Neurological Exam: Coma Scale Eye Opening: Spontaneous (4) Verbal Response: Oriented (5) - Routine Psychiatric Exam Present: anxious Hem/Onc Consult Result - Labs CBC & Chem 7: 04/07/21 11:05 04/07/21 11:05 Assessment and Plan (1) Breast cancer of upper-outer quadrant of left female breast Status: Acute This is a pleasant 45-year-old lady with recent diagnosis of left-sided breast cancer upper outer quadrant. 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 Question is about neoadjuvant chemotherapy. Since the tumor size is small less than 2 cm., the nodes appear negative on the ultrasound. Would recommend upfront surgical resection for exact staging. She will need chemotherapy since she is triple negative. I discussed the case with Dr. Dutta, as well. PLAN: She will be scheduled for lumpectomy with sentinel node dissection, in the near future. Will make further treatment plans based upon the exact pathological staging. She will most likely require adjuvant chemotherapy, being triple negative. All her questions were answered to her satisfaction. She will return in a month for a follow-up visit. Thank you, CC: Dr. Dutta. Dr. Enriquez.
[2021-04-07 11:22] LABS: MANUAL DIFF FLAG NO
[2021-04-07 11:26] LABS: Basophils Percent Auto 0.2 % (0-2); Hemoglobin 14.1 g/dl (12.0-16.0); Imm Gran Abs Auto 0.03 X10*3/uL (0.00-0.03); Imm Gran Pct Auto 0.3 % (0.0-0.4); Lymphocytes Absolute Auto 1.8 X10*3/uL (1.2-4.9); Lymphocytes Percent Auto 18.3 % (20-40); Mean Corpuscular HGB Conc 33.6 g/dl (31.0-35.0); Mean Corpuscular Hemoglobin 28.4 pg (27.0-33.0); Mean Corpuscular Volume 84.7 fL (80-98); Mean Platelet Volume 9.6 fL (9.4-12.3); Monocytes Absolute Auto 0.6 X10*3/uL (0.1-1.2); Monocytes Percent Auto 5.5 % (2-11); Neutrophils Absolute Auto 7.5 X10*3/uL (2.0-8.3); Neutrophils Percent Auto 75.7 % (45-73); Platelet Count 190 X10*3/uL (160-400); Red Blood Count 4.96 X10*6/uL (4.20-5.50); Red Cell Distribution Width 13.4 % (11.0-16.0); White Blood Count 9.9 X10*3/uL (4.8-10.8)
--- NOTE | 2021-04-07 11:30 | MHC.HEMONCMA ---
Patient came in for a consult for Left Breast cancer. States that she is doing okay, she is here with her father and father's life partner. Clinical summary was reviewed and updated. Patient had labs and will return in 3 weeks for a follow up. Patient should have surgery soon, she is also consulting with a dental mold maker about confirming her cardiac conditions. I will request that note so the doctor knows which chemo the patient can be given.
[2021-04-07 11:54] LABS: Alanine Aminotransferase 14 U/L (0-31); Albumin Level 4.1 g/dL (3.5-5.0); Alkaline Phosphatase 69 U/L (39-117); Anion Gap 11 (12-20); Aspartate Amino Transferase 18 U/L (5-31); Bilirubin Total 0.4 mg/dL (0.0-1.0); Blood Urea Nitrogen 11 mg/dL (9-16); Calcium 9.2 mg/dL (8.4-10.2); Carbon Dioxide 26 mmol/L (22-29); Chloride 108 mmol/L (96-108); Creatinine Clr Calc Pharmacy 86.8; Estimated Glomerular Filt Rate > 60; Glucose Random 86 mg/dL (60-115); Potassium 4.5 mmol/L (3.3-5.1); Sodium 140 mmol/L (135-145); Total Protein 6.6 g/dL (6.5-8.0)
[2021-04-07 12:21] LABS: Vitamin D 25-OH Total 49.8 ng/mL (>30)
[2021-04-09 12:42] LABS: CA 27.29 19 U/mL (<38)
--- NOTE | 2021-05-06 10:22 | MHC.HEMONC ---
unable to reach pt on second attempt re: WILY paperwork
--- NOTE | 2021-05-06 14:06 | PM.HEMONCPN ---
Medical Summary - Medical Summary Date of Service: 05/06/21 Chief complaint: Follow-up for right breast cancer, triple negative. Medical Summary: DIAGNOSIS: LEFT BREAST CANCER UPPER OUTER QUADRANT. CURRENT THERAPY: STATUS POST LUMPECTOMY ON / . Interval History Interval history: Marah Rivera is a pleasant 45 year old lady, here for a follow-up visit. She had her lumpectomy done on 04/29. Pathology is still pending. She tells me that her surgery went well. The incision does appear to be healing although there is still some small amount of drainage. She has a follow-up appointment with Dr. Dutta, scheduled for . She does feel rather fatigued. No fever nor chills. Appetite is decent. Weight is stable. She denies headaches. Occasional dizziness. She has had symptoms of chest pain at rest and on exertion. She gets short of breath on exertion. She has had some cardiac issues. She was seen by Dr. sy fish who diagnosed diastolic dysfunction. She went to Dr. Trevino in [place] who did right heart catheterization. He mention some muscular dysfunction/autonomic dysfunction. No treatment was suggested. Clinical trial was offered that she declined. She actually has an appointment with Dr. Brewer, on . She gets occasional heartburn. No nausea vomiting. Denies abdominal pain. She has had diarrhea lately she thinks it is her nerves. She has frequency of micturition. She gets aches and pains. She has anxiety and depression. Previous history: She had an abnormal mammogram. This was done on ,02/28 and revealed: Left breast has new mass, posterior upper outer quadrant in area of palpable in measuring 1.7 cm. Ultrasound demonstrated: Heterogenous macro lobulated hypoechoic mass posterior upper outer quadrant measurin.8 and 1.4 time 1.7 cm. Left axillary nodes showing normal fatty hilus and normal color. 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 She is here to discuss further treatment options. Historical Interpreter history: Menarche at 10. She still has her regular periods. Family history: Her mom was diagnosed with breast cancer at 38. She lived for 7 years. of metastatic disease. 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 She is not . She has no children. She smokes half a pack a day. She drinks very little alcohol. Review of Systems - Constitutional Reports system reviewed and no additional complaints, except as documented, Reports lack of energy, Reports malaise, Reports weight loss - Eyes Reports system reviewed and no additional complaints, except as documented - ENT Reports system reviewed and no additional complaints, except as documented - Cardiovascular Reports system reviewed and no additional complaints, except as documented, Denies chest pain at rest - Respiratory Reports no additional respiratory complaints, Denies chest congestion - Gastrointestinal Reports system reviewed and no additional complaints, except as documented, Denies abdominal pain, Denies belching, Denies change in bowel habits - Genitourinary Reports no additional female genitourinary complaints, Denies abnormal vaginal bleeding - Musculoskeletal Reports system reviewed and no additional complaints, except as documented, Reports back pain - Integumentary/Breasts Skin/Breast: Reports no additional skin complaints, Denies bleeding lesions, Reports breast skin changes, Reports breast pain - Neurologic Reports system reviewed and no additional complaints, except as documented - Psychiatric Reports system reviewed and no additional complaints, except as documented - Endocrine Reports no additional endocrine complaints - Hematologic/Lymphatic Reports system reviewed and no additional complaints, except as documented - Allergic/Immunologic Reports system reviewed and no additional complaints, except as documented PMFSH Medical History: Medical History (Last Reviewed 05/08/21 @ 15:16 by Odell Dutta MD) Diastolic dysfunction Exertional dyspnea Family history of breast cancer gene mutation in first degree relative Hx of cyst of breast Hx of lipoma Invasive ductal carcinoma of left breast Left breast mass Functional capacity: independent ambulation Patient : No Family History: Family History (Last Reviewed 05/08/21 @ 15:16 by Odell Dutta MD) Mother Breast cancer, Onset Age: 38 Father CAD (coronary artery disease) Hyperlipidemia HTN (hypertension) History of cardiac defibrillator placement Pacemaker Family/Other Lymphoma Paternal Grandmother Dementia Surgical History: Surgical History (Last Reviewed 05/08/21 @ 15:16 by Odell Dutta MD) Endometriosis History of excision of mass History of lumpectomy of left breast Social History: Social History (Last Reviewed 05/08/21 @ 15:16 by Odell Dutta MD) Alcohol History: Alcohol intake: current Alcohol History Details: Alcohol intake frequency: holiday/special occasion Tobacco History: Patient Tobacco Use Status: Current everyday Tobacco Tobacco use type: Cigarette Cigarette Packs Per Day: 0.5 Cigarettes Per Day: 10.0 Substance Use History: Substance Use Type: Marijuana Oncology Screenings - ECOG Performance Status ECOG Performance Status: 0 Home Medications and Allergies Home Medications Medication Instructions Recorded Confirmed Type metoprolol tartrate 25 mg tablet 25 mg PO BID 01/14/21 05/08/21 History nitroglycerin 0.4 mg sublingual 0.4 mg SUBLINGUAL Q5M PRN 01/14/21 05/08/21 History tablet Vitamin D (with calcium) 600 mg PO DAILY 05/06/21 05/08/21 History Allergies Allergy/AdvReac Type Severity Reaction Status Date / Time bee pollen [BEE STINGS] Allergy Severe ANAPHYLAXIS Verified 05/08/21 14:43 Penicillins Allergy Intermediate Unknown Verified 05/08/21 14:43 danazol Allergy Unknown hand Verified 05/08/21 14:43 swelling sertraline [Zoloft] AdvReac Unknown increasedi Verified 05/08/21 14:43 rritability codeine AdvReac Unknown nausea Uncoded 02/27/20 00:00 prilosec AdvReac Unknown bloating Uncoded 02/27/20 00:00 Exam Vital signs: Vital Signs Temp 97.6 F 04/07/21 09:39 Pulse 72 04/07/21 09:39 Resp 14 04/07/21 09:39 BP 106/69 04/07/21 09:39 Pulse Ox 97 04/07/21 09:39 Weight 65.2 kg Body Mass Index 26.2 - Constitutional Present: mild distress - Routine HEENT Exam Head: Present: normocephalic Eye: Present: normal appearance ENT: Present: mucous membranes moist - Routine Neck Exam Present: full ROM - Routine Chest/Breast/Axilla Exam Breast: Present: tenderness, erythema - Routine Respiratory Exam Present: CTAB - Routine Cardiovascular Exam Cardiovascular: Present: RRR, S1, S2. Absent: rubs, S3, S4 - Routine Abdominal Exam Present: normal bowel sounds, nontender. Absent: diminished bowel sounds, organomegaly - Routine Rectal Exam Patient deferred: digital exam - Routine Extremities Exam Absent: tenderness - Routine Back/Spine/Pelvis Exam Back/Spine: Present: full ROM - Routine Skin Exam Present: intact, normal turgor - Routine Neurological Exam Present: alert, oriented X3 - Detailed Neurological Exam: Coma Scale Eye Opening: Spontaneous (4) - Routine Psychiatric Exam Present: normal affect Data - Labs CBC & Chem 7: 04/07/21 11:05 04/07/21 11:05 Labs: 04/07/21 11:05 CA 27.29 Routine Complete Blood Count Auto Diff Routine Comprehensive Met. Panel Routine Vitamin D 25-OH Total Routine Laboratory Last Values WBC 9.9 X10*3/uL (4.8-10.8) 04/07/21 11:05 RBC 4.96 X10*6/uL (4.20-5.50) 04/07/21 11:05 Hgb 14.1 g/dl (12.0-16.0) 04/07/21 11:05 Hct 42.0 % (37-47) 04/07/21 11:05 MCV 84.7 fL (80-98) 04/07/21 11:05 MCH 28.4 pg (27.0-33.0) 04/07/21 11:05 MCHC 33.6 g/dl (31.0-35.0) 04/07/21 11:05 RDW 13.4 % (11.0-16.0) 04/07/21 11:05 Plt Count 190 X10*3/uL (160-400) 04/07/21 11:05 MPV 9.6 fL (9.4-12.3) 04/07/21 11:05 Immature Gran % (Auto) 0.3 % (0.0-0.4) 04/07/21 11:05 Neut % (Auto) 75.7 % (45-73) H 04/07/21 11:05 Lymph % (Auto) 18.3 % (20-40) L 04/07/21 11:05 Gonzales % (Auto) 5.5 % (2-11) 04/07/21 11:05 Eos % (Auto) 0.0 % (0-4) 04/07/21 11:05 Baso % (Auto) 0.2 % (0-2) 04/07/21 11:05 Lymph # (Auto) 1.8 X10*3/uL (1.2-4.9) 04/07/21 11:05 Gonzales # (Auto) 0.6 X10*3/uL (0.1-1.2) 04/07/21 11:05 Eos # (Auto) 0.0 X10*3/uL (0.0-0.4) 04/07/21 11:05 Baso # (Auto) 0.0 X10*3/uL (0.0-0.2) 04/07/21 11:05 Abs Immat Gran (auto) 0.03 X10*3/uL (0.00-0.03) 04/07/21 11:05 Absolute Neuts (auto) 7.5 X10*3/uL (2.0-8.3) 04/07/21 11:05 Absolute Nucleated RBC 0.000 X10*3/uL (0.0-0.012) 04/07/21 11:05 Nucleated RBC % (auto) 0.0 /100WBC (0.0-0.2) 04/07/21 11:05 Sodium 140 mmol/L (135-145) 04/07/21 11:05 Potassium 4.5 mmol/L (3.3-5.1) 04/07/21 11:05 Chloride 108 mmol/L (96-108) 04/07/21 11:05 Carbon Dioxide 26 mmol/L (22-29) 04/07/21 11:05 Anion Gap 11 (12-20) L 04/07/21 11:05 BUN 11 mg/dL (9-16) 04/07/21 11:05 Creatinine 0.71 mg/dL (0.5-1.4) 04/07/21 11:05 Estim Creat Clear Calc 86.8 04/07/21 11:05 Estimated GFR > 60 04/07/21 11:05 Random Glucose 86 mg/dL (60-115) 04/07/21 11:05 Calcium 9.2 mg/dL (8.4-10.2) 04/07/21 11:05 Total Bilirubin 0.4 mg/dL (0.0-1.0) 04/07/21 11:05 AST 18 U/L (5-31) 04/07/21 11:05 ALT 14 U/L (0-31) 04/07/21 11:05 Alkaline Phosphatase 69 U/L (39-117) 04/07/21 11:05 Total Protein 6.6 g/dL (6.5-8.0) 04/07/21 11:05 Albumin 4.1 g/dL (3.5-5.0) 04/07/21 11:05 CA 27-29 19 U/mL (<38) 04/07/21 11:05 25-OH Vitamin D Total 49.8 ng/mL (>30) 04/07/21 11:05 Progress Note: A/P (1) Breast cancer of upper-outer quadrant of left female breast Status: Acute Assessment and plan: This is a pleasant 45-year-old lady with recent diagnosis of left-sided breast cancer upper outer quadrant. 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 Question is about neoadjuvant chemotherapy. Since the tumor size is small less than 2 cm., the nodes appear negative on the ultrasound. Would recommend upfront surgical resection for exact staging. She will need chemotherapy since she is triple negative. I discussed the case with Dr. Dutta, as well. She underwent a lumpectomy with sentinel node dissection. Her pathology is still pending. PLAN: Will make further treatment plans based upon the exact pathological staging. She will most likely require adjuvant chemotherapy, being triple negative. All her questions were answered to her satisfaction. I filled out her FMLA forms with her. She will return in a couple of weeks for a follow-up visit. Thank you, CC: Dr. Dutta. Dr. Enriquez. - Time Spent With Patient Time Spent with Patient (in minutes): 30
[2021-05-06 14:24] VITALS: BP 123/75; PULSE 78; RESP 18; TEMP 36.4; O2SAT 99; BMI 25.2
--- NOTE | 2021-05-06 15:51 | MHC.HEMONC ---
Exam with Dr Torres. Medications/Clinical Summary updated by this RN. Marah c/o right sided discomfort after recent lumpectomy. She states that she takes Ibuprofen during the day and 1/2 of Oxycodone at night with good effect. FMLA forms given to Dr Torres to complete. Follow up scheduled for 05/16/2021.
[2021-05-16 13:51] LABS: MANUAL DIFF FLAG NO
--- NOTE | 2021-05-16 14:01 | PM.HEMONCPN ---
Medical Summary - Medical Summary Date of Service: 05/16/21 Chief complaint: Follow-up for: Triple negative breast cancer. Medical Summary: DIAGNOSIS: LEFT BREAST CANCER UPPER OUTER QUADRANT. CURRENT THERAPY: STATUS POST LUMPECTOMY ON 04/29. Pathology revealed: Invasive ductal carcinoma, high grade, 3 cm, with small satellite nodules x2 approximately 0.1 cm. DCIS nuclear grade 3 with comedonecrosis and calcifications. No lymphovascular invasion. Margins negative for invasive and in-situ ductal carcinoma, however invasive ductal carcinoma is less than 0.1 cm to the posterior margin and approximately 0.1 cm to the medial and lateral margins. Re-excision negative. ER negative/AK negative and HER2 Vonda negative. Three sentinel nodes were negative. Interval History Interval history: Marah Rivera is a pleasant 45 year old lady, here for a follow-up visit. She had her lumpectomy done on 04/29. She tells me that her surgery went well. The incision does appear to be healing, the open area has closed up. No more drainage. She had a follow-up appointment with Dr. Dutta, scheduled yesterday. She does feel rather fatigued. No fever nor chills. Appetite is decent. Weight is stable. She denies headaches. Occasional dizziness. She has had symptoms of chest pain at rest and on exertion. She gets short of breath on exertion. She has had some cardiac issues. She was seen by Dr. Morse who diagnosed diastolic dysfunction. She went to Dr. Trevino in [place] who did right heart catheterization. He mention some muscular dysfunction/autonomic dysfunction. No treatment was suggested. Clinical trial was offered that she declined. She actually had an appointment with Dr. Brewer, yesterday. She gets occasional heartburn. No nausea vomiting. Denies abdominal pain. She has had diarrhea lately she thinks it is her nerves. She has frequency of micturition. She gets aches and pains. She has anxiety and depression. Previous history: She had an abnormal mammogram. This was done on ,02/28 and revealed: Left breast has new mass, posterior upper outer quadrant in area of palpable in measuring 1.7 cm. Ultrasound demonstrated: Heterogenous macro lobulated hypoechoic mass posterior upper outer quadrant measurin.8 and 1.4 time 1.7 cm. Left axillary nodes showing normal fatty hilus and normal color. 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 [employer] History: Menarche at 10. She still has her regular periods. Family history: Her mom was diagnosed with breast cancer at 38. She lived for 7 years. of metastatic disease. 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 She is not . She has no children. She smokes half a pack a day. She drinks very little alcohol. Review of Systems - Constitutional Reports system reviewed and no additional complaints, except as documented - Eyes Reports system reviewed and no additional complaints, except as documented - ENT Reports system reviewed and no additional complaints, except as documented - Cardiovascular Reports system reviewed and no additional complaints, except as documented - Respiratory Reports no additional respiratory complaints - Gastrointestinal Reports system reviewed and no additional complaints, except as documented - Genitourinary Reports no additional female genitourinary complaints - Musculoskeletal Reports system reviewed and no additional complaints, except as documented - Integumentary/Breasts Skin/Breast: Reports no additional skin complaints - Neurologic Reports system reviewed and no additional complaints, except as documented - Psychiatric Reports system reviewed and no additional complaints, except as documented - Endocrine Reports no additional endocrine complaints - Hematologic/Lymphatic Reports system reviewed and no additional complaints, except as documented - Allergic/Immunologic Reports system reviewed and no additional complaints, except as documented PMFSH Medical History: Medical History (Last Reviewed 05/16/21 @ 14:23 by Angel Luis Pedroza) Diastolic dysfunction Exertional dyspnea Family history of breast cancer gene mutation in first degree relative Hx of cyst of breast Hx of lipoma Invasive ductal carcinoma of left breast Left breast mass Functional capacity: independent ambulation Patient : No Family History: Family History (Last Reviewed 05/16/21 @ 14:23 by Angel Luis Pedroza) Mother Breast cancer, Onset Age: 38 Father CAD (coronary artery disease) Hyperlipidemia HTN (hypertension) History of cardiac defibrillator placement Pacemaker Family/Other Lymphoma Paternal Grandmother Dementia Surgical History: Surgical History (Last Reviewed 05/16/21 @ 14:23 by Angel Luis Pedroza) Endometriosis History of excision of mass History of lumpectomy of left breast Social History: Social History (Last Reviewed 05/16/21 @ 14:23 by Angel Luis Pedroza) Alcohol History: Alcohol intake: current Alcohol History Details: Alcohol intake frequency: holiday/special occasion Tobacco History: Patient Tobacco Use Status: Current everyday Tobacco Tobacco use type: Cigarette Cigarette Packs Per Day: 0.5 Cigarettes Per Day: 10.0 Substance Use History: Substance Use Type: Marijuana Advance Directives: Advance Directives: No Advance Directives Information Provided: Yes Oncology Screenings - ECOG Performance Status ECOG Performance Status: 0 Home Medications and Allergies Home Medications Medication Instructions Recorded Confirmed Type metoprolol tartrate 25 mg tablet 25 mg PO BID 01/14/21 05/16/21 History nitroglycerin 0.4 mg sublingual 0.4 mg SUBLINGUAL Q5M PRN 01/14/21 05/16/21 History tablet Vitamin D (with calcium) 600 mg PO DAILY 05/06/21 05/16/21 History Allergies Allergy/AdvReac Type Severity Reaction Status Date / Time bee pollen [BEE STINGS] Allergy Severe ANAPHYLAXIS Verified 05/30/21 12:27 Penicillins Allergy Intermediate Unknown Verified 05/30/21 12:27 danazol Allergy Unknown hand Verified 05/30/21 12:27 swelling sertraline [Zoloft] AdvReac Unknown increasedi Verified 05/30/21 12:27 rritability codeine AdvReac Unknown nausea Uncoded 02/27/20 00:00 prilosec AdvReac Unknown bloating Uncoded 02/27/20 00:00 Exam Vital signs: Vital Signs Temp 97.6 F 05/06/21 14:24 Pulse 78 05/06/21 14:24 Resp 18 05/06/21 14:24 BP 123/75 05/06/21 14:24 Pulse Ox 99 05/06/21 14:24 Weight 62.7 kg Body Mass Index 25.2 - Constitutional Present: mild distress - Routine HEENT Exam Head: Present: normocephalic Eye: Present: normal appearance ENT: Present: mucous membranes moist - Routine Neck Exam Present: full ROM - Routine Respiratory Exam Present: CTAB - Routine Cardiovascular Exam Cardiovascular: Present: RRR, S1, S2. Absent: rubs, S3, S4 - Routine Abdominal Exam Present: normal bowel sounds, nontender. Absent: diminished bowel sounds, organomegaly - Routine Rectal Exam Patient deferred: digital exam - Routine Extremities Exam Absent: tenderness - Routine Back/Spine/Pelvis Exam Back/Spine: Present: full ROM - Routine Skin Exam Present: intact, normal turgor - Routine Neurological Exam Present: alert, oriented X3 - Detailed Neurological Exam: Coma Scale Eye Opening: Spontaneous (4) - Routine Psychiatric Exam Present: normal affect Data - Labs CBC & Chem 7: 05/16/21 13:44 05/16/21 13:44 Labs: 04/07/21 11:05 CA 27.29 Routine Complete Blood Count Auto Diff Routine Comprehensive Met. Panel Routine Vitamin D 25-OH Total Routine Laboratory Last Values WBC 9.9 X10*3/uL (4.8-10.8) 04/07/21 11:05 RBC 4.96 X10*6/uL (4.20-5.50) 04/07/21 11:05 Hgb 14.1 g/dl (12.0-16.0) 04/07/21 11:05 Hct 42.0 % (37-47) 04/07/21 11:05 MCV 84.7 fL (80-98) 04/07/21 11:05 MCH 28.4 pg (27.0-33.0) 04/07/21 11:05 MCHC 33.6 g/dl (31.0-35.0) 04/07/21 11:05 RDW 13.4 % (11.0-16.0) 04/07/21 11:05 Plt Count 190 X10*3/uL (160-400) 04/07/21 11:05 MPV 9.6 fL (9.4-12.3) 04/07/21 11:05 Immature Gran % (Auto) 0.3 % (0.0-0.4) 04/07/21 11:05 Neut % (Auto) 75.7 % (45-73) H 04/07/21 11:05 Lymph % (Auto) 18.3 % (20-40) L 04/07/21 11:05 [place] % (Auto) 5.5 % (2-11) 04/07/21 11:05 Eos % (Auto) 0.0 % (0-4) 04/07/21 11:05 Baso % (Auto) 0.2 % (0-2) 04/07/21 11:05 Lymph # (Auto) 1.8 X10*3/uL (1.2-4.9) 04/07/21 11:05 [place] # (Auto) 0.6 X10*3/uL (0.1-1.2) 04/07/21 11:05 Eos # (Auto) 0.0 X10*3/uL (0.0-0.4) 04/07/21 11:05 Baso # (Auto) 0.0 X10*3/uL (0.0-0.2) 04/07/21 11:05 Abs Immat Gran (auto) 0.03 X10*3/uL (0.00-0.03) 04/07/21 11:05 Absolute Neuts (auto) 7.5 X10*3/uL (2.0-8.3) 04/07/21 11:05 Absolute Nucleated RBC 0.000 X10*3/uL (0.0-0.012) 04/07/21 11:05 Nucleated RBC % (auto) 0.0 /100WBC (0.0-0.2) 04/07/21 11:05 Sodium 140 mmol/L (135-145) 04/07/21 11:05 Potassium 4.5 mmol/L (3.3-5.1) 04/07/21 11:05 Chloride 108 mmol/L (96-108) 04/07/21 11:05 Carbon Dioxide 26 mmol/L (22-29) 04/07/21 11:05 Anion Gap 11 (12-20) L 04/07/21 11:05 BUN 11 mg/dL (9-16) 04/07/21 11:05 Creatinine 0.71 mg/dL (0.5-1.4) 04/07/21 11:05 Estim Creat Clear Calc 86.8 04/07/21 11:05 Estimated GFR > 60 04/07/21 11:05 Random Glucose 86 mg/dL (60-115) 04/07/21 11:05 Calcium 9.2 mg/dL (8.4-10.2) 04/07/21 11:05 Total Bilirubin 0.4 mg/dL (0.0-1.0) 04/07/21 11:05 AST 18 U/L (5-31) 04/07/21 11:05 ALT 14 U/L (0-31) 04/07/21 11:05 Alkaline Phosphatase 69 U/L (39-117) 04/07/21 11:05 Total Protein 6.6 g/dL (6.5-8.0) 04/07/21 11:05 Albumin 4.1 g/dL (3.5-5.0) 04/07/21 11:05 CA 27-29 19 U/mL (<38) 04/07/21 11:05 25-OH Vitamin D Total 49.8 ng/mL (>30) 04/07/21 11:05 Progress Note: A/P (1) Breast cancer of upper-outer quadrant of left female breast Status: Acute Assessment and plan: This is a pleasant 45-year-old lady with recent diagnosis of left-sided breast cancer upper outer quadrant. 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 Question is about neoadjuvant chemotherapy. Since the tumor size is small less than 2 cm., the nodes appear negative on the ultrasound. Would recommend upfront surgical resection for exact staging. She will need chemotherapy since she is triple negative. I discussed the case with Dr. Dutta, as well. She underwent a lumpectomy with sentinel node dissection. Her pathology revealed: Pathology revealed: Invasive ductal carcinoma, high grade, 3 cm, with small satellite nodules x2 approximately 0.1 cm. DCIS nuclear grade 3 with comedonecrosis and calcifications. No lymphovascular invasion. Margins negative for invasive and in-situ ductal carcinoma, however invasive ductal carcinoma is less than 0.1 cm to the posterior margin and approximately 0.1 cm to the medial and lateral margins. Re-excision negative. ER negative/AK negative and HER2 Vonda negative. Three sentinel nodes were negative. No lymphovascular invasion. Margins negative for invasive and in-situ ductal carcinoma, however invasive ductal carcinoma is less than 0.1 cm to the posterior margin and approximately 0.1 cm to the medial and lateral margins. Re-excision negative. ER negative/AK negative and HER2 Vonda negative. Three sentinel nodes were negative. She is a candidate for adjuvant chemotherapy, being triple negative. Choices of chemotherapy include dose dense AC x4, followed by Taxol. However she does have a history of cardiac issues with diastolic dysfunction. In the situation will try to avoid Adriamycin. She had an echocardiogram at [facility] few weeks ago which showed EF of 55%. Recent data suggest benefit of adjuvant carboplatin and Taxol, especially for triple negative disease. PLAN: She will have a Port-A-Cath placed to facilitate the chemotherapy. She underwent chemotherapy teaching. She will return in a couple of weeks to get started. All her and her friend's questions were answered to her satisfaction. She will return in a couple of weeks for a follow-up visit. Thank you, CC: Dr. Dutta. Dr. Enriquez. - Time Spent With Patient Time Spent with Patient (in minutes): 40
[2021-05-16 14:03] LABS: Basophils Percent Auto 0.2 % (0-2); Hematocrit 39.5 % (37-47); Hemoglobin 13.4 g/dl (12.0-16.0); Imm Gran Abs Auto 0.05 X10*3/uL (0.00-0.03); Imm Gran Pct Auto 0.5 % (0.0-0.4); Lymphocytes Absolute Auto 1.9 X10*3/uL (1.2-4.9); Lymphocytes Percent Auto 18.7 % (20-40); Mean Corpuscular HGB Conc 33.9 g/dl (31.0-35.0); Mean Corpuscular Hemoglobin 28.8 pg (27.0-33.0); Mean Corpuscular Volume 84.9 fL (80-98); Monocytes Absolute Auto 0.5 X10*3/uL (0.1-1.2); Monocytes Percent Auto 4.6 % (2-11); Neutrophils Absolute Auto 7.8 X10*3/uL (2.0-8.3); Platelet Count 234 X10*3/uL (160-400); Red Blood Count 4.65 X10*6/uL (4.20-5.50); Red Cell Distribution Width 13.3 % (11.0-16.0); White Blood Count 10.2 X10*3/uL (4.8-10.8)
[2021-05-16 14:21] VITALS: BP 109/68; PULSE 78; RESP 20; TEMP 36.4; O2SAT 96; BMI 25.0
[2021-05-16 14:30] LABS: Alanine Aminotransferase 35 U/L (0-31); Albumin Level 4.1 g/dL (3.5-5.0); Alkaline Phosphatase 72 U/L (39-117); Anion Gap 13 (12-20); Aspartate Amino Transferase 27 U/L (5-31); Bilirubin Total 0.2 mg/dL (0.0-1.0); Blood Urea Nitrogen 11 mg/dL (9-16); Calcium 9.1 mg/dL (8.4-10.2); Carbon Dioxide 22 mmol/L (22-29); Chloride 107 mmol/L (96-108); Creatinine Clr Calc Pharmacy 81.3; Estimated Glomerular Filt Rate > 60; Glucose Random 123 mg/dL (60-115); Potassium 4.3 mmol/L (3.3-5.1); Sodium 138 mmol/L (135-145); Total Protein 6.7 g/dL (6.5-8.0)
--- NOTE | 2021-05-16 16:17 | MHC.HEMONC ---
pt here with a friend to see Dr Torres and review final pathology with recommendations for chemo. Pt will get port in 2 weeks and then start weekly Carbo/Taxol. She was given teaching about chemo and general side effects as well as drug specific side effects. Her recent echo from [facility] was reviewed by Dr Torres. She is aware not to take blood thinners prior to port. She was given literature about the drugs as well as when to call Clinic. She was also given Claudia Weiner's card for f/u her financial concerns.
--- NOTE | 2021-05-20 10:11 | HO.HEMONCPA ---
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 DRUGS ARE COVERED UNDER MEDICAL BENEFITS PER [facility] ([facility])
[2021-06-03 10:18] VITALS: BP 109/71; PULSE 80; RESP 14; TEMP 36.4; O2SAT 97; BMI 25.4
[2021-06-03 11:00] LABS: Basophils Percent Auto 0.3 % (0-2); Eosinophils Percent Auto 0.1 % (0-4); Hematocrit 39.4 % (37-47); Hemoglobin 13.3 g/dl (12.0-16.0); Imm Gran Abs Auto 0.03 X10*3/uL (0.00-0.03); Imm Gran Pct Auto 0.4 % (0.0-0.4); Lymphocytes Absolute Auto 1.9 X10*3/uL (1.2-4.9); MANUAL DIFF FLAG NO; Mean Corpuscular HGB Conc 33.8 g/dl (31.0-35.0); Mean Corpuscular Hemoglobin 28.9 pg (27.0-33.0); Mean Corpuscular Volume 85.7 fL (80-98); Mean Platelet Volume 9.5 fL (9.4-12.3); Monocytes Absolute Auto 0.7 X10*3/uL (0.1-1.2); Neutrophils Absolute Auto 5.3 X10*3/uL (2.0-8.3); Neutrophils Percent Auto 66.2 % (45-73); Platelet Count 168 X10*3/uL (160-400); Red Cell Distribution Width 13.2 % (11.0-16.0)
[2021-06-03 11:36] LABS: Alanine Aminotransferase 13 U/L (0-31); Albumin Level 3.9 g/dL (3.5-5.0); Alkaline Phosphatase 71 U/L (39-117); Anion Gap 10 (12-20); Aspartate Amino Transferase 14 U/L (5-31); Bilirubin Total < 0.2 mg/dL (0.0-1.0); Blood Urea Nitrogen 12 mg/dL (9-16); Calcium 9.3 mg/dL (8.4-10.2); Carbon Dioxide 27 mmol/L (22-29); Chloride 106 mmol/L (96-108); Creatinine Clr Calc Pharmacy 84.2; Estimated Glomerular Filt Rate > 60; Glucose Random 95 mg/dL (60-115); Potassium 4.1 mmol/L (3.3-5.1); Sodium 139 mmol/L (135-145); Total Protein 6.4 g/dL (6.5-8.0)
[2021-06-03] MEDS: Acetaminophen 325 MG TABLET 650 MG PO (12:00)
[2021-06-03] MEDS: Famotidine/PF 20 MG/2 ML VIAL IVPUSH (12:07)
[2021-06-03] MEDS: diphenhydrAMINE HCL 50 MG/ML VIAL 25 MG IVPUSH (12:36)
[2021-06-03] MEDS: dexAMETHasone sod phosphate/NS 12 MG/50 ML PIGGYBACK 200 MG IV (12:53)
[2021-06-03] MEDS: Heparin Sodium,Porcine Flush 500 UNIT/5 ML SYRINGE IVFLUSH (15:07)
--- NOTE | 2021-06-03 15:59 | MHC.HEMONC ---
Pt here for C1D1 Paclitaxel/Carboplatin IV. Pt states she is a little anxious about the start of chemotherapy. States she did not sleep well last pm. Steri strips intact over port site in right upper chest. 2 steri strips removed to gain access to port. Incisional line intact and well approximated. Pt has some areas of redness around edges of tegaderm dressing. Port site accessed without difficulty with blood return noted. Labs drawn from port-specimen sent to lab. Pt has allergy to latex and tegaderm-IV 3000 used over accessed port. 0.9% NS infusing. Clinical summary updated. Pt states she has a firm cord-like area on left inner upper arm-Dr Torres notified. Lab results obtained-okay to receive treatment. Pre medicated with tylenol 650mg orally, Pepcid 20mg IV, Benadryl 25mg IV, Zofran 16mg IV, Decadron 12mg IV. Paclitaxel/Carboplatin IV given as ordered-tolerated well. Pt states she had a brief metallic taste in her mouth. Dr Torres into see pt-plan for US of left arm today. Port flushed with Heparin and de accessed. Follow up appointments scheduled, Discharge packet given. Discharged home. Pt to US after treatment.
[2021-06-10 10:22] VITALS: BP 120/63; PULSE 80; RESP 18; TEMP 36.5; O2SAT 98; BMI 25.2
[2021-06-10 10:44] LABS: MANUAL DIFF FLAG NO
[2021-06-10 10:46] LABS: Basophils Percent Auto 0.3 % (0-2); Hematocrit 39.8 % (37-47); Hemoglobin 13.6 g/dl (12.0-16.0); Imm Gran Abs Auto 0.05 X10*3/uL (0.00-0.03); Imm Gran Pct Auto 0.8 % (0.0-0.4); Lymphocytes Absolute Auto 1.5 X10*3/uL (1.2-4.9); Lymphocytes Percent Auto 23.1 % (20-40); Mean Corpuscular HGB Conc 34.2 g/dl (31.0-35.0); Mean Corpuscular Hemoglobin 29.1 pg (27.0-33.0); Mean Platelet Volume 9.2 fL (9.4-12.3); Monocytes Absolute Auto 0.4 X10*3/uL (0.1-1.2); Monocytes Percent Auto 6.6 % (2-11); Neutrophils Absolute Auto 4.4 X10*3/uL (2.0-8.3); Neutrophils Percent Auto 69.2 % (45-73); Platelet Count 180 X10*3/uL (160-400); Red Blood Count 4.68 X10*6/uL (4.20-5.50); White Blood Count 6.3 X10*3/uL (4.8-10.8)
[2021-06-10 11:18] LABS: Alanine Aminotransferase 36 U/L (0-31); Alkaline Phosphatase 73 U/L (39-117); Anion Gap 10 (12-20); Aspartate Amino Transferase 22 U/L (5-31); Bilirubin Total 0.2 mg/dL (0.0-1.0); Blood Urea Nitrogen 14 mg/dL (9-16); Calcium 9.3 mg/dL (8.4-10.2); Carbon Dioxide 28 mmol/L (22-29); Chloride 105 mmol/L (96-108); Creatinine Clr Calc Pharmacy 79.6; Estimated Glomerular Filt Rate > 60; Glucose Random 95 mg/dL (60-115); Potassium 4.2 mmol/L (3.3-5.1); Sodium 139 mmol/L (135-145); Total Protein 6.7 g/dL (6.5-8.0)
[2021-06-10] MEDS: Acetaminophen 325 MG TABLET 650 MG PO (11:32)
[2021-06-10] MEDS: Famotidine/PF 20 MG/2 ML VIAL IVPUSH (11:33)
[2021-06-10] MEDS: dexAMETHasone sod phosphate/NS 12 MG/50 ML PIGGYBACK 200 MG IV (11:55)
[2021-06-10] MEDS: diphenhydrAMINE HCL 50 MG/ML VIAL 25 MG IVPUSH (12:14)
[2021-06-10] MEDS: Heparin Sodium,Porcine Flush 500 UNIT/5 ML SYRINGE IVFLUSH (15:35)
--- NOTE | 2021-06-10 15:57 | MHC.HEMONC ---
Pt here for C1D8 Carboplatin/Paclitaxel. Pt states she had some nausea, fatigue,dizziness for a few days after her last treatment. States has alternating diarrhea and constipation at times. States lump under left arm axilla area improving with self massage. Port accessed with blood return, Labs drawn from port-specimen to lab. 0.9% NS infusing. Lab results reviewed-okay for treatment today. Pre medicated with tylenol 650mg orally, benadryl 25mg IV, Pepcid 20mg IV, Zofran 16mg IV, Decadron 12 mg IV. Paclitaxel/Carboplatin IV given as ordered-tolerated well. Port flushed with heparin and de accessed. Follow up appointment scheduled for next week. Discharge packet given.
[2021-06-17 10:41] VITALS: BP 113/65; PULSE 66; RESP 17; TEMP 37.1; O2SAT 98; BMI 25.7
[2021-06-17 10:44] LABS: MANUAL DIFF FLAG NO
[2021-06-17 10:50] LABS: Basophils Percent Auto 0.6 % (0-2); Hematocrit 39.5 % (37-47); Hemoglobin 13.2 g/dl (12.0-16.0); Imm Gran Abs Auto 0.03 X10*3/uL (0.00-0.03); Imm Gran Pct Auto 0.6 % (0.0-0.4); Lymphocytes Absolute Auto 1.6 X10*3/uL (1.2-4.9); Lymphocytes Percent Auto 32.3 % (20-40); Mean Corpuscular HGB Conc 33.4 g/dl (31.0-35.0); Mean Corpuscular Hemoglobin 28.9 pg (27.0-33.0); Mean Corpuscular Volume 86.4 fL (80-98); Mean Platelet Volume 9.2 fL (9.4-12.3); Monocytes Absolute Auto 0.3 X10*3/uL (0.1-1.2); Monocytes Percent Auto 5.8 % (2-11); Neutrophils Absolute Auto 3.1 X10*3/uL (2.0-8.3); Neutrophils Percent Auto 60.7 % (45-73); Platelet Count 189 X10*3/uL (160-400); Red Blood Count 4.57 X10*6/uL (4.20-5.50); Red Cell Distribution Width 13.4 % (11.0-16.0)
[2021-06-17 11:15] LABS: Alanine Aminotransferase 23 U/L (0-31); Alkaline Phosphatase 65 U/L (39-117); Anion Gap 11 (12-20); Aspartate Amino Transferase 17 U/L (5-31); Bilirubin Total 0.3 mg/dL (0.0-1.0); Blood Urea Nitrogen 13 mg/dL (9-16); Carbon Dioxide 25 mmol/L (22-29); Chloride 110 mmol/L (96-108); Creatinine Clr Calc Pharmacy 79.1; Estimated Glomerular Filt Rate > 60; Glucose Random 98 mg/dL (60-115); Sodium 141 mmol/L (135-145); Total Protein 6.5 g/dL (6.5-8.0)
[2021-06-17] MEDS: Acetaminophen 325 MG TABLET 650 MG PO (11:38)
[2021-06-17] MEDS: Famotidine/PF 20 MG/2 ML VIAL IVPUSH (11:38)
[2021-06-17] MEDS: dexAMETHasone sod phosphate/NS 12 MG/50 ML PIGGYBACK 200 MG IV (12:09)
[2021-06-17] MEDS: diphenhydrAMINE HCL 50 MG/ML VIAL 25 MG IVPUSH (12:30)
--- NOTE | 2021-06-17 13:33 | MHC.HEMONC ---
Pt here for C1D15 Carboplatin/Paclitaxel. Port accessed with blood return noted after several attempts to aspirate. Labs drawn-specimen to lab. 0.9% NS infusing. Pt states she has slight tingling in finger tips at times, nausea after chemotherapy. States zofran and MJ have helped with nausea. States is restless at night and has some difficulty sleeping at times. Lab results reviewed-WNL. Pre medicated with tylenol 650mg, benadryl 25mg IV, Pepcid 20mg IV, Decadron 12mg IV. Carboplatin and Paclitaxel given as ordered-tolerated well. Port flushed with heparin and de accessed. Follow up appointments scheduled. Discharge packet given.
[2021-06-17] MEDS: Heparin Sodium,Porcine Flush 500 UNIT/5 ML SYRINGE IVFLUSH (14:42)
[2021-07-01 10:29] VITALS: BP 130/58; PULSE 78; RESP 18; TEMP 36.4; O2SAT 99; BMI 26.2
[2021-07-01 10:56] LABS: MANUAL DIFF FLAG NO
[2021-07-01 11:12] LABS: Basophils Percent Auto 0.3 % (0-2); Hematocrit 37.3 % (37-47); Hemoglobin 13.1 g/dl (12.0-16.0); Imm Gran Abs Auto 0.03 X10*3/uL (0.00-0.03); Imm Gran Pct Auto 0.5 % (0.0-0.4); Lymphocytes Absolute Auto 1.7 X10*3/uL (1.2-4.9); Lymphocytes Percent Auto 26.7 % (20-40); Mean Corpuscular HGB Conc 35.1 g/dl (31.0-35.0); Mean Corpuscular Hemoglobin 29.8 pg (27.0-33.0); Mean Corpuscular Volume 84.8 fL (80-98); Mean Platelet Volume 9.4 fL (9.4-12.3); Monocytes Absolute Auto 0.6 X10*3/uL (0.1-1.2); Monocytes Percent Auto 9.5 % (2-11); Neutrophils Absolute Auto 3.9 X10*3/uL (2.0-8.3); Platelet Count 130 X10*3/uL (160-400); Red Cell Distribution Width 14.2 % (11.0-16.0); White Blood Count 6.2 X10*3/uL (4.8-10.8)
[2021-07-01 11:18] LABS: Alanine Aminotransferase 34 U/L (0-31); Alkaline Phosphatase 78 U/L (39-117); Anion Gap 9 (12-20); Aspartate Amino Transferase 20 U/L (5-31); Bilirubin Total 0.3 mg/dL (0.0-1.0); Blood Urea Nitrogen 14 mg/dL (9-16); Calcium 8.9 mg/dL (8.4-10.2); Carbon Dioxide 25 mmol/L (22-29); Chloride 108 mmol/L (96-108); Creatinine Clr Calc Pharmacy 83.2; Estimated Glomerular Filt Rate > 60; Glucose Random 111 mg/dL (60-115); Potassium 4.1 mmol/L (3.3-5.1); Sodium 138 mmol/L (135-145); Total Protein 6.7 g/dL (6.5-8.0)
[2021-07-01] MEDS: Acetaminophen 325 MG TABLET 650 MG PO (11:34)
[2021-07-01] MEDS: Famotidine/PF 20 MG/2 ML VIAL IVPUSH (11:36)
[2021-07-01] MEDS: dexAMETHasone sod phosphate/NS 12 MG/50 ML PIGGYBACK 200 MG IV (11:57)
[2021-07-01] MEDS: diphenhydrAMINE HCL 50 MG/ML VIAL 25 MG IVPUSH (12:38)
--- NOTE | 2021-07-01 13:50 | P.PNHO_ITS ---
Medical Summary - Medical Summary Date of Service: 07/01/21 Chief complaint: Follow-up for: Breast cancer. Medical Summary: DIAGNOSIS: LEFT BREAST CANCER UPPER OUTER QUADRANT. CURRENT THERAPY: STATUS POST LUMPECTOMY ON 04/29. Pathology revealed: Invasive ductal carcinoma, high grade, 3 cm, with small satellite nodules x2 approximately 0.1 cm. DCIS nuclear grade 3 with comedonecrosis and calcifications. No lymphovascular invasion. Margins negative for invasive and in-situ ductal carcinoma, however invasive ductal carcinoma is less than 0.1 cm to the posterior margin and approximately 0.1 cm to the medial and lateral margins. Re-excision negative. ER negative/VA negative and HER2 Vonda negative. Three sentinel nodes were negative. Currently on weekly carboplatin Taxol based chemotherapy. Cycle 1 on 06/03. Starting cycle 2 today. Gets treatment day 1, 8 and 15. Interval History Interval history: Marah Rivera is a pleasant 45 year old lady, here for a follow-up visit. She is here to start cycle 2 of carbo Taxol weekly. After the treatment she feels a bit tired dizzy and nauseous for a couple days. The Zofran does help. She also can not sleep for a couple of nights. She feels it is the Decadron th at she gets. She says she does not feel too bad. She has been trying to stay as active as possible. No fever nor chills. Appetite is decent. Weight is stable. She denies headaches. Occasional dizziness. She has had symptoms of chest pain at rest and on exertion. She gets short of breath on exertion. Denies abdominal pain. She gets occasional heartburn. No nausea vomiting. She has had diarrhea lately she thinks it is her nerves. She has frequency of micturition. She gets aches and pains. She has anxiety and depression. Previous history: She had an abnormal mammogram. This was done on ,02/28 and revealed: Left breast has new mass, posterior upper outer quadrant in area of palpable in measuring 1.7 cm. Ultrasound demonstrated: Heterogenous macro lobulated hypoechoic mass posterior upper outer quadrant measurin.8 and 1.4 time 1.7 cm. Left axillary nodes showing normal fatty hilus and normal color. 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 She had her lumpectomy done on 04/29. She tells me that her surgery went well. The incision does appear to be healing, the open area has closed up. No more drainage. She had a follow-up appointment with Dr. Dutta. 2. Cardiac issues: She has had some cardiac issues. She was seen by Dr. Morse who diagnosed diastolic dysfunction. She went to Dr. Trevino in [place] who did right heart catheterization. He mention some muscular dysfunction/autonomic dysfunction. No treatment was suggested. Clinical trial was offered that she declined. She actually had an appointment with Dr. Brewer. Set Up / Operator History: Menarche at 10. She still has her regular periods. Family history: Her mom was diagnosed with breast cancer at 38. She lived for 7 years. of metastatic disease. 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 She is not . She has no children. She smokes half a pack a day. She drinks very little alcohol. Review of Systems - Constitutional Reports no additional constitutional complaints, Reports difficulty sleeping, Reports lack of energy - Eyes Reports no additional eye complaints - ENT Reports no additional ear, nose, mouth, and throat complaints - Cardiovascular Reports no additional cardiovascular complaints - Respiratory Reports no additional respiratory complaints - Gastrointestinal Reports no additional gastrointestinal complaints - Genitourinary Reports no additional female genitourinary complaints - Musculoskeletal Reports no additional musculoskeletal complaints - Integumentary/Breasts Skin/Breast: Reports no additional skin complaints - Neurologic Reports no additional neurologic complaints - Psychiatric Reports no additional psychiatric complaints - Endocrine Reports no additional endocrine complaints - Hematologic/Lymphatic Reports no additional hematologic/lymphatic complaints - Allergic/Immunologic Reports no additional allergic/immunologic complaints [facility] Medical History: Medical History (Last Reviewed 06/09/21 @ 16:20 by Odell Dutta MD) Diastolic dysfunction Exertional dyspnea Family history of breast cancer gene mutation in first degree relative Hx of cyst of breast Hx of lipoma Invasive ductal carcinoma of left breast Left breast mass Functional capacity: independent ambulation Patient : No Family History: Family History (Last Updated 06/26/21 @ 11:34 by Maria Isabel Garcia CMA) Mother Breast cancer, Onset Age: 38 Father CAD (coronary artery disease) Hyperlipidemia HTN (hypertension) History of cardiac defibrillator placement Pacemaker Family/Other Lymphoma Paternal Grandmother Dementia Sister Substance use disorder Mental health disorder Surgical History: Surgical History (Last Reviewed 06/09/21 @ 16:20 by Odell Dutta MD) Endometriosis History of excision of mass History of lumpectomy of left breast Social History: Social History (Last Reviewed 06/09/21 @ 16:20 by Odell Dutta MD) Living Situation History: Housing: House Alcohol History: Alcohol intake: current Alcohol History Details: Alcohol intake frequency: holiday/special occasion Tobacco History: Patient Tobacco Use Status: Current everyday Tobacco Tobacco use type: Cigarette Cigarette Packs Per Day: 0.5 Substance Use History: Use of substances other than those prescribed or required for medical reasons : No Substance Use Type: Marijuana Nutrition Assessment: Patient : No Occupation Assessmet: service: No Current occupational status: unemployed Home Medications and Allergies Current Medications: Current Medications Generic Name Dose Route Start Last Admin Trade Name Gemini PRN Reason Stop Dose Admin Acetaminophen 650 mg 07/01/21 00:00 07/01/21 11:34 Acetaminophen 325 Mg Tablet PO 07/01/21 23:59 650 mg ONCE GIDEON Administration Diphenhydramine HCl 25 mg 07/01/21 00:00 07/01/21 12:38 Diphenhydramine Hcl 50 Mg/Ml Vial IVPUSH 07/01/21 23:59 25 mg ONCE GIDEON Administration Famotidine 20 mg 07/01/21 00:00 07/01/21 11:36 Famotidine/Pf 20 Mg/2 Ml Vial IVPUSH 07/01/21 23:59 20 mg ONCE GIDEON Administration Heparin Sodium (Porcine) 500 unit 07/01/21 00:00 Heparin Sodium,Porcine Flush 500 Unit/5 Ml Syringe IVFLUSH 07/01/21 23:59 ONCE GIDEON Ondansetron HCl 16 mg in 50 mls @ 200 mls/hr 07/01/21 00:00 07/01/21 11:52 Zofran IV 07/01/21 23:59 Infused ONCE GIDEON Infusion Dexamethasone Sodium Phosphate 12 mg in 50 mls @ 200 mls/hr 07/01/21 00:00 07/01/21 12:12 Decadron IV 07/01/21 23:59 Infused ONCE GIDEON Infusion Paclitaxel 138 mg/ Sodium 273 mls @ 273 mls/hr 07/01/21 00:00 07/01/21 13:35 Chloride IV 07/01/21 23:59 273 mls/hr ONCE GIDEON Administration Carboplatin 240 mg/ Sodium 274 mls @ 548 mls/hr 07/01/21 00:00 Chloride IV 07/01/21 23:59 ONCE [facility] Home Medications Medication Instructions Recorded Confirmed Type metoprolol tartrate 25 mg tablet 25 mg PO TID 01/14/21 06/26/21 History nitroglycerin 0.4 mg sublingual 0.4 mg SUBLINGUAL Q5M PRN 01/14/21 06/26/21 History tablet Vitamin D (with calcium) 600 mg PO DAILY 05/06/21 06/26/21 History Allergies Allergy/AdvReac Type Severity Reaction Status Date / Time bee pollen [BEE STINGS] Allergy Severe ANAPHYLAXIS Verified 06/26/21 11:56 Penicillins Allergy Intermediate Unknown Verified 06/26/21 11:56 danazol Allergy Unknown hand Verified 06/26/21 11:56 swelling sertraline [Zoloft] AdvReac Unknown increasedi Verified 06/26/21 11:56 rritability codeine AdvReac Unknown nausea Uncoded 02/27/20 00:00 prilosec AdvReac Unknown bloating Uncoded 02/27/20 00:00 Exam Vital signs: Vital Signs Temp 97.5 F 07/01/21 10:29 Pulse 78 07/01/21 10:29 Resp 18 07/01/21 10:29 BP 130/58 L 07/01/21 10:29 Pulse Ox 99 07/01/21 10:29 Intake & Output 06/30/21 07/01/21 07/01/21 18:59 06:59 18:59 Intake Total 100 / 100 Balance 100 / 100 Intake: Intake, IV Amount 100 / 100 Ondansetron HCL/NS 16 mg In 50 50 / 50 ml @ 200 mls/hr IV ONCE [facility] Rx# :[id number] dexAMETHasone sod phosphate/NS 50 / 50 12 mg In 50 ml @ 200 mls/hr IV ONCE [facility] Rx#:[id number] Other: Weight 65.1 kg Weight in Grams 65369 Weight 65.1 kg Body Mass Index 26.2 - Constitutional Present: mild distress - Routine HEENT Exam Head: Present: normocephalic Eye: Present: normal appearance ENT: Present: mucous membranes moist - Routine Neck Exam Present: full ROM - Routine Respiratory Exam Present: CTAB - Routine Cardiovascular Exam Cardiovascular: Present: RRR, S1, S2. Absent: rubs, S3, S4 - Routine Abdominal Exam Present: normal bowel sounds, nontender. Absent: diminished bowel sounds, organomegaly - Routine Rectal Exam Patient deferred: digital exam - Routine Extremities Exam Absent: tenderness - Routine Back/Spine/Pelvis Exam Back/Spine: Present: full ROM - Routine Skin Exam Present: intact, normal turgor - Routine Neurological Exam Present: alert, oriented X3 - Detailed Neurological Exam: Coma Scale Eye Opening: Spontaneous (4) - Routine Psychiatric Exam Present: normal affect Data - Labs CBC & Chem 7: 07/01/21 10:45 07/01/21 10:45 Labs: 04/07/21 11:05 CA 27.29 Routine Complete Blood Count Auto Diff Routine Comprehensive Met. Panel Routine Vitamin D 25-OH Total Routine Laboratory Last Values WBC 9.9 X10*3/uL (4.8-10.8) 04/07/21 11:05 RBC 4.96 X10*6/uL (4.20-5.50) 04/07/21 11:05 Hgb 14.1 g/dl (12.0-16.0) 04/07/21 11:05 Hct 42.0 % (37-47) 04/07/21 11:05 MCV 84.7 fL (80-98) 04/07/21 11:05 MCH 28.4 pg (27.0-33.0) 04/07/21 11:05 MCHC 33.6 g/dl (31.0-35.0) 04/07/21 11:05 RDW 13.4 % (11.0-16.0) 04/07/21 11:05 Plt Count 190 X10*3/uL (160-400) 04/07/21 11:05 MPV 9.6 fL (9.4-12.3) 04/07/21 11:05 Immature Gran % (Auto) 0.3 % (0.0-0.4) 04/07/21 11:05 Neut % (Auto) 75.7 % (45-73) H 04/07/21 11:05 Lymph % (Auto) 18.3 % (20-40) L 04/07/21 11:05 [place] % (Auto) 5.5 % (2-11) 04/07/21 11:05 Eos % (Auto) 0.0 % (0-4) 04/07/21 11:05 Baso % (Auto) 0.2 % (0-2) 04/07/21 11:05 Lymph # (Auto) 1.8 X10*3/uL (1.2-4.9) 04/07/21 11:05 [place] # (Auto) 0.6 X10*3/uL (0.1-1.2) 04/07/21 11:05 Eos # (Auto) 0.0 X10*3/uL (0.0-0.4) 04/07/21 11:05 Baso # (Auto) 0.0 X10*3/uL (0.0-0.2) 04/07/21 11:05 Abs Immat Gran (auto) 0.03 X10*3/uL (0.00-0.03) 04/07/21 11:05 Absolute Neuts (auto) 7.5 X10*3/uL (2.0-8.3) 04/07/21 11:05 Absolute Nucleated RBC 0.000 X10*3/uL (0.0-0.012) 04/07/21 11:05 Nucleated RBC % (auto) 0.0 /100WBC (0.0-0.2) 04/07/21 11:05 Sodium 140 mmol/L (135-145) 04/07/21 11:05 Potassium 4.5 mmol/L (3.3-5.1) 04/07/21 11:05 Chloride 108 mmol/L (96-108) 04/07/21 11:05 Carbon Dioxide 26 mmol/L (22-29) 04/07/21 11:05 Anion Gap 11 (12-20) L 04/07/21 11:05 BUN 11 mg/dL (9-16) 04/07/21 11:05 Creatinine 0.71 mg/dL (0.5-1.4) 04/07/21 11:05 Estim Creat Clear Calc 86.8 04/07/21 11:05 Estimated GFR > 60 04/07/21 11:05 Random Glucose 86 mg/dL (60-115) 04/07/21 11:05 Calcium 9.2 mg/dL (8.4-10.2) 04/07/21 11:05 Total Bilirubin 0.4 mg/dL (0.0-1.0) 04/07/21 11:05 AST 18 U/L (5-31) 04/07/21 11:05 ALT 14 U/L (0-31) 04/07/21 11:05 Alkaline Phosphatase 69 U/L (39-117) 04/07/21 11:05 Total Protein 6.6 g/dL (6.5-8.0) 04/07/21 11:05 Albumin 4.1 g/dL (3.5-5.0) 04/07/21 11:05 CA 27-29 19 U/mL (<38) 04/07/21 11:05 25-OH Vitamin D Total 49.8 ng/mL (>30) 04/07/21 11:05 Assessment and Plan Patient Active problem list reviewed?: Yes (1) Breast cancer of upper-outer quadrant of left female breast Status: Acute Assessment and plan: This is a pleasant 45-year-old lady with recent diagnosis of left-sided breast cancer upper outer quadrant. 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 Question is about neoadjuvant chemotherapy. Since the tumor size is small less than 2 cm., the nodes appear negative on the ultrasound. Would recommend upfront surgical resection for exact staging. She will need chemotherapy since she is triple negative. I discussed the case with Dr. Dutta, as well. She underwent a lumpectomy with sentinel node dissection. Her pathology revealed: Pathology revealed: Invasive ductal carcinoma, high grade, 3 cm, with small satellite nodules x2 approximately 0.1 cm. DCIS nuclear grade 3 with comedonecrosis and calcifications. No lymphovascular invasion. Margins negative for invasive and in-situ ductal carcinoma, however invasive ductal carcinoma is less than 0.1 cm to the posterior margin and approximately 0.1 cm to the medial and lateral margins. Re-excision negative. ER negative/VA negative and HER2 Vonda negative. Three sentinel nodes were negative. No lymphovascular invasion. Margins negative for invasive and in-situ ductal carcinoma, however invasive ductal carcinoma is less than 0.1 cm to the posterior margin and approximately 0.1 cm to the medial and lateral margins. Re-excision negative. ER negative/VA negative and HER2 Vonda negative. Three sentinel nodes were negative. She was deemed a candidate for adjuvant chemotherapy, being triple negative. Choices of chemotherapy included dose dense AC x4, followed by Taxol. However she does have a history of cardiac issues with diastolic dysfunction. In the situation I intended to avoid Adriamycin. She had an echocardiogram at [facility] few weeks prior which showed EF of 55%. Recent data suggest benefit of adjuvant carboplatin and Taxol, especially for triple negative disease. She had a Port-A-Cath placed to facilitate the chemotherapy. She underwent chemotherapy teaching. She got started on 06/03. So far she is doing well. She has tolerated the 1st cycle without incident. PLAN: She will start cycle 2 today. The plan is, to continue her on the current regimen, to complete 6 cycles. She will subsequently be referred for post lumpectomy radiation therapy. All her and her friend's questions were answered to her satisfaction. She will return in a month for a follow-up visit. Thank you, CC: Dr. Dutta. Dr. Enriquez. - Time Spent With Patient Time Spent with Patient (in minutes): 25
[2021-07-01] MEDS: Heparin Sodium,Porcine Flush 500 UNIT/5 ML SYRINGE IVFLUSH (15:18)
--- NOTE | 2021-07-01 16:09 | MHC.HEMONC ---
Pt ere for C2 D1 Paclitaxel/Carboplatin. Port accessed with blood return noted. Labs drawn from port-specimen sent to lab. Pt states she is feeling well today. States her hair is falling out. Lab results reviewed-okay for treatment. Pre medicated with tylenol 650mg orally, benadryl 25mg IV, Pepcid 20mg IV, Zofran 16mg IV, Decadron 12mg IV. Paclitaxel/Carboplatin IV given as ordered-tolerated well. Dr Torres into see pt. Follow up appointment scheduled. Discharge packet given. Port flushed with heparin and de-accessed.
[2021-07-08 10:15] VITALS: BP 119/74; PULSE 84; RESP 18; TEMP 36.4; O2SAT 96; BMI 26.7
[2021-07-08 10:42] LABS: Hemoglobin 12.1 g/dl (12.0-16.0); Lymphocytes Absolute Auto 1.8 X10*3/uL (1.2-4.9); Mean Corpuscular Hemoglobin 29.4 pg (27.0-33.0); Red Blood Count 4.11 X10*6/uL (4.20-5.50)
[2021-07-08 10:44] LABS: Basophils Percent Auto 0.4 % (0-2); Hematocrit 35.1 % (37-47); Imm Gran Abs Auto 0.04 X10*3/uL (0.00-0.03); Imm Gran Pct Auto 0.8 % (0.0-0.4); Lymphocytes Percent Auto 34.4 % (20-40); Mean Corpuscular HGB Conc 34.5 g/dl (31.0-35.0); Mean Corpuscular Volume 85.4 fL (80-98); Mean Platelet Volume 9.9 fL (9.4-12.3); Monocytes Absolute Auto 0.3 X10*3/uL (0.1-1.2); Monocytes Percent Auto 5.2 % (2-11); Neutrophils Absolute Auto 3.1 X10*3/uL (2.0-8.3); Neutrophils Percent Auto 59.2 % (45-73); Platelet Count 113 X10*3/uL (160-400); Red Cell Distribution Width 13.9 % (11.0-16.0); White Blood Count 5.2 X10*3/uL (4.8-10.8)
[2021-07-08 10:54] LABS: Alanine Aminotransferase 71 U/L (0-31); Albumin Level 3.9 g/dL (3.5-5.0); Alkaline Phosphatase 72 U/L (39-117); Anion Gap 10 (12-20); Aspartate Amino Transferase 29 U/L (5-31); Bilirubin Total 0.4 mg/dL (0.0-1.0); Blood Urea Nitrogen 11 mg/dL (9-16); Calcium 8.7 mg/dL (8.4-10.2); Carbon Dioxide 24 mmol/L (22-29); Chloride 107 mmol/L (96-108); Estimated Glomerular Filt Rate > 60; Glucose Random 99 mg/dL (60-115); Potassium 4.3 mmol/L (3.3-5.1); Sodium 137 mmol/L (135-145); Total Protein 6.4 g/dL (6.5-8.0)
[2021-07-08 10:57] LABS: MANUAL DIFF FLAG NO
[2021-07-08] MEDS: Acetaminophen 325 MG TABLET 650 MG PO (11:10)
[2021-07-08] MEDS: Famotidine/PF 20 MG/2 ML VIAL IVPUSH (11:11)
[2021-07-08] MEDS: dexAMETHasone sod phosphate/NS 12 MG/50 ML PIGGYBACK 200 MG IV (11:32)
[2021-07-08] MEDS: Heparin Sodium,Porcine Flush 500 UNIT/5 ML SYRINGE IVFLUSH (11:33)
[2021-07-08] MEDS: diphenhydrAMINE HCL 50 MG/ML VIAL 25 MG IVPUSH (11:54)
--- NOTE | 2021-07-08 15:10 | MHC.HEMONC ---
Pt here for C2 D8 Paclitaxel/ Carboplatin. Port accessed with blood return noted. Labs drawn from port-specimen to lab. Pt states she has some nausea and fatigue after last treatment. States has slight numbness and tingling in hands and feet-no change from last week per pt. Lab results reviewed-okay to receive treatment today. Pre medicated with Tylenol 650mg orally, Benadryl 25mg IV, Pepcid 20mg IV, Zofran 16mg IV, Decadron 12mg IV. Paclitaxel and Carboplatin IV given as ordered-tolerated well. Port flushed with heparin and de accessed. Follow up appointment scheduled. Discharge packet given.
[2021-07-15 10:00] VITALS: BP 109/83; PULSE 81; RESP 18; TEMP 36.6; O2SAT 100; BMI 27.0
[2021-07-15 10:06] LABS: MANUAL DIFF FLAG NO
[2021-07-15 10:26] LABS: Basophils Percent Auto 0.3 % (0-2); Eosinophils Percent Auto 0.3 % (0-4); Hemoglobin 11.8 g/dl (12.0-16.0); Imm Gran Abs Auto 0.01 X10*3/uL (0.00-0.03); Imm Gran Pct Auto 0.3 % (0.0-0.4); Lymphocytes Absolute Auto 1.3 X10*3/uL (1.2-4.9); Lymphocytes Percent Auto 36.4 % (20-40); Mean Corpuscular HGB Conc 34.7 g/dl (31.0-35.0); Mean Corpuscular Hemoglobin 29.6 pg (27.0-33.0); Mean Corpuscular Volume 85.4 fL (80-98); Monocytes Absolute Auto 0.2 X10*3/uL (0.1-1.2); Monocytes Percent Auto 5.7 % (2-11); Neutrophils Absolute Auto 2.1 X10*3/uL (2.0-8.3); Platelet Count 123 X10*3/uL (160-400); Red Blood Count 3.98 X10*6/uL (4.20-5.50); White Blood Count 3.7 X10*3/uL (4.8-10.8)
[2021-07-15 10:44] LABS: Alanine Aminotransferase 52 U/L (0-31); Albumin Level 3.9 g/dL (3.5-5.0); Alkaline Phosphatase 69 U/L (39-117); Anion Gap 10 (12-20); Aspartate Amino Transferase 23 U/L (5-31); Bilirubin Total 0.5 mg/dL (0.0-1.0); Blood Urea Nitrogen 11 mg/dL (9-16); Calcium 8.7 mg/dL (8.4-10.2); Carbon Dioxide 24 mmol/L (22-29); Chloride 109 mmol/L (96-108); Creatinine Clr Calc Pharmacy 86.3; Estimated Glomerular Filt Rate > 60; Glucose Random 104 mg/dL (60-115); Potassium 4.1 mmol/L (3.3-5.1); Sodium 139 mmol/L (135-145); Total Protein 6.3 g/dL (6.5-8.0)
[2021-07-15] MEDS: Acetaminophen 325 MG TABLET 650 MG PO (11:15)
[2021-07-15] MEDS: Famotidine/PF 20 MG/2 ML VIAL IVPUSH (11:16)
[2021-07-15] MEDS: diphenhydrAMINE HCL 50 MG/ML VIAL 25 MG IVPUSH (11:21)
[2021-07-15] MEDS: dexAMETHasone sod phosphate/NS 12 MG/50 ML PIGGYBACK 200 MG IV (11:21)
[2021-07-15] MEDS: Heparin Sodium,Porcine Flush 500 UNIT/5 ML SYRINGE IVFLUSH (14:34)
--- NOTE | 2021-07-15 14:41 | MHC.HEMONC ---
Pt here for C2 D15 Paclitaxel/Carbo. Port accessed with blood return noted. Labs drawn from port-specimen to lab. Pt states she has nausea after chemo therapy for a few days. States zofran helps with nausea. States has some fatigue after chemotherapy. Lab results reviewed-okay to receive therapy today. Pre medicated with tylenol 650mg orally, benadryl 25mg IV, Pepcid 20mg IV, Zofran 16mg IV, Decadron 12mg IV. Paclitaxel and Carboplatin IV given as ordered-tolerated well. Port flushed with heparin and de accessed. Follow up appointment scheduled. Discharge packet given.
--- NOTE | 2021-07-17 16:36 | MHC.HEMONC ---
Patient called to report quarter size bleeding noted when wiping backside approx 3 times today. Patient states it is not in the urine. She denies hemorrhoids and pain to rectum. Denies nausea,vomiting, and diarrhea. No other symptoms, reported slight fatigue associated with chemotherapy. Dr. Torres updated, if bleeding persists patient can come in tomorrow for possible exam. Instructed patient to call office tomorrow morning with update. If symptoms arise or bleeding worsens instructed patient to go to ED. Patient verbalizes understanding.
[2021-07-29 10:18] VITALS: BP 113/70; PULSE 86; RESP 18; TEMP 36.3; O2SAT 98; BMI 27.5
[2021-07-29 10:51] LABS: MANUAL DIFF FLAG NO
[2021-07-29 10:55] LABS: Basophils Percent Auto 0.4 % (0-2); Hematocrit 34.2 % (37-47); Imm Gran Abs Auto 0.07 X10*3/uL (0.00-0.03); Imm Gran Pct Auto 1.4 % (0.0-0.4); Lymphocytes Absolute Auto 1.9 X10*3/uL (1.2-4.9); Lymphocytes Percent Auto 37.1 % (20-40); Mean Corpuscular HGB Conc 35.1 g/dl (31.0-35.0); Mean Corpuscular Hemoglobin 30.2 pg (27.0-33.0); Mean Corpuscular Volume 86.1 fL (80-98); Mean Platelet Volume 9.2 fL (9.4-12.3); Monocytes Absolute Auto 0.7 X10*3/uL (0.1-1.2); Monocytes Percent Auto 12.9 % (2-11); Neutrophils Absolute Auto 2.4 X10*3/uL (2.0-8.3); Neutrophils Percent Auto 48.2 % (45-73); Platelet Count 146 X10*3/uL (160-400); Red Blood Count 3.97 X10*6/uL (4.20-5.50)
--- NOTE | 2021-07-29 11:32 | P.PNHO_ITS ---
Medical Summary - Medical Summary Date of Service: 07/29/21 Chief complaint: Follow-up for: Breast cancer. Medical Summary: DIAGNOSIS: LEFT BREAST CANCER UPPER OUTER QUADRANT. CURRENT THERAPY: STATUS POST LUMPECTOMY ON 04/29. Pathology revealed: Invasive ductal carcinoma, high grade, 3 cm, with small satellite nodules x2 approximately 0.1 cm. DCIS nuclear grade 3 with comedonecrosis and calcifications. No lymphovascular invasion. Margins negative for invasive and in-situ ductal carcinoma, however invasive ductal carcinoma is less than 0.1 cm to the posterior margin and approximately 0.1 cm to the medial and lateral margins. Re-excision negative. ER negative/ME negative and HER2 Vonda negative. Three sentinel nodes were negative. Currently on weekly carboplatin Taxol based chemotherapy. Cycle 1 on 06/03. Starting cycle 3 today. Gets treatment day 1, 8 and 15. Interval History Interval history: Marah Rivera is a pleasant 45 year old lady, here for a follow-up visit. She is here to start cycle 3 of carbo Taxol weekly. She says: So far, so good. She feels her body is getting used to the treatment. After the treatment she feels a bit nauseous, and tired, for a couple days. The Zofran does help. Sometimes, she cannot sleep for a couple of nights. She feels it is the Decadron that she gets. She says she does not feel too bad. No fever nor chills. She has been trying to stay as active as possible. Appetite is decent. Weight is stable. She denies headaches. Occasional dizziness. She has had symptoms of chest pain at rest and on exertion. She gets short of breath on exertion. Denies abdominal pain. She gets occasional heartburn. No nausea vomiting. She has had diarrhea lately she thinks it is her nerves. She has frequency of micturition. She gets aches and pains. She has anxiety and depression. Previous history: She had an abnormal mammogram. This was done on ,02/28 and revealed: Left breast has new mass, posterior upper outer quadrant in area of palpable in measuring 1.7 cm. Ultrasound demonstrated: Heterogenous macro lobulated hypoechoic mass posterior upper outer quadrant measurin.8 and 1.4 time 1.7 cm. Left axillary nodes showing normal fatty hilus and normal color. 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 She had her lumpectomy done on 04/29. She tells me that her surgery went well. The incision does appear to be healing, the open area has closed up. No more drainage. She had a follow-up appointment with Dr. Dutta. 2. Cardiac issues: She has had some cardiac issues. She was seen by Dr. Morse who diagnosed diastolic dysfunction. She went to Dr. Trevino in [place] who did right heart catheterization. He mention some muscular dysfunction/autonomic dysfunction. No treatment was suggested. Clinical trial was offered that she declined. She actually had an appointment with Dr. Brewer. [employer] History: Menarche at 10. She still has her regular periods. Family history: Her mom was diagnosed with breast cancer at 38. She lived for 7 years. of metastatic disease. 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 She is not . She has no children. She smokes half a pack a day. She drinks very little alcohol. Review of Systems - Constitutional Reports system reviewed and no additional complaints, except as documented, Reports lack of energy, Reports weakness - Eyes Reports system reviewed and no additional complaints, except as documented - ENT Reports system reviewed and no additional complaints, except as documented - Cardiovascular Reports system reviewed and no additional complaints, except as documented - Respiratory Reports no additional respiratory complaints - Gastrointestinal Reports system reviewed and no additional complaints, except as documented, Reports nausea - Genitourinary Reports no additional female genitourinary complaints - Musculoskeletal Reports system reviewed and no additional complaints, except as documented - Integumentary/Breasts Skin/Breast: Reports no additional skin complaints - Neurologic Reports system reviewed and no additional complaints, except as documented - Psychiatric Reports system reviewed and no additional complaints, except as documented - Endocrine Reports no additional endocrine complaints - Hematologic/Lymphatic Reports system reviewed and no additional complaints, except as documented - Allergic/Immunologic Reports system reviewed and no additional complaints, except as documented PMFSH Medical History: Medical History (Last Updated 07/06/21 @ 23:15 by Carlyn Enriquez MD) Diastolic dysfunction Exertional dyspnea Family history of breast cancer gene mutation in first degree relative Hx of cyst of breast Hx of lipoma Invasive ductal carcinoma of left breast Left breast mass Functional capacity: independent ambulation Patient : No Family History: Family History (Last Updated 06/26/21 @ 11:34 by Maria Isabel Garcia CMA) Mother Breast cancer, Onset Age: 38 Father CAD (coronary artery disease) Hyperlipidemia HTN (hypertension) History of cardiac defibrillator placement Pacemaker Family/Other Lymphoma Paternal Grandmother Dementia Sister Substance use disorder Mental health disorder Surgical History: Surgical History (Last Reviewed 06/09/21 @ 16:20 by Odell Dutta MD) Endometriosis History of excision of mass History of lumpectomy of left breast Social History: Social History (Last Reviewed 06/09/21 @ 16:20 by Odell Dutta MD) Living Situation History: Housing: House Alcohol History: Alcohol intake: current Alcohol History Details: Alcohol intake frequency: holiday/special occasion Tobacco History: Patient Tobacco Use Status: Current everyday Tobacco Tobacco use type: Cigarette Cigarette Packs Per Day: 0.5 Substance Use History: Use of substances other than those prescribed or required for medical reasons : No Substance Use Type: Marijuana Nutrition Assessment: Patient : No Occupation Assessmet: service: No Current occupational status: unemployed Oncology Screenings - ECOG Performance Status ECOG Performance Status: 0 Home Medications and Allergies Current Medications: Current Medications Acetaminophen (Acetaminophen 325 Mg Tablet) 650 mg PO ONCE GIDEON Stop: 07/29/21 23:59 Diphenhydramine HCl (Diphenhydramine Hcl 50 Mg/Ml Vial) 25 mg IVPUSH ONCE GIDEON Stop: 07/29/21 23:59 Famotidine (Famotidine/Pf 20 Mg/2 Ml Vial) 20 mg IVPUSH ONCE GIDEON Stop: 07/29/21 23:59 Heparin Sodium (Porcine) (Heparin Sodium,Porcine Flush 500 Unit/5 Ml Syringe) 500 unit IVFLUSH ONCE GIDEON Stop: 07/29/21 23:59 Ondansetron HCl (Zofran) 16 mg in 50 mls @ 200 mls/hr IV ONCE GIDEON Stop: 07/29/21 23:59 Dexamethasone Sodium Phosphate (Decadron) 12 mg in 50 mls @ 200 mls/hr IV ONCE GIDEON Stop: 07/29/21 23:59 Home Medications Medication Instructions Recorded Confirmed Type metoprolol tartrate 25 mg tablet 25 mg PO TID 01/14/21 07/15/21 History nitroglycerin 0.4 mg sublingual 0.4 mg SUBLINGUAL Q5M PRN 01/14/21 07/15/21 History tablet Vitamin D (with calcium) 600 mg PO DAILY 05/06/21 07/15/21 History Allergies Allergy/AdvReac Type Severity Reaction Status Date / Time bee pollen [BEE STINGS] Allergy Severe ANAPHYLAXIS Verified 07/15/21 12:49 Penicillins Allergy Intermediate Unknown Verified 07/15/21 12:49 danazol Allergy Unknown hand Verified 07/15/21 12:49 swelling sertraline [Zoloft] AdvReac Unknown increasedi Verified 07/15/21 12:49 rritability codeine AdvReac Unknown nausea Uncoded 07/15/21 12:49 prilosec AdvReac Unknown bloating Uncoded 07/15/21 12:49 Exam Vital signs: Vital Signs Temp 97.4 F 07/29/21 10:18 Pulse 86 07/29/21 10:18 Resp 18 07/29/21 10:18 BP 113/70 07/29/21 10:18 Pulse Ox 98 07/29/21 10:18 Intake & Output 07/28/21 07/29/21 07/29/21 18:59 06:59 18:59 Other: Weight 68.2 kg Weight in Grams 22040 Weight 68.2 kg Body Mass Index 27.5 - Constitutional Present: mild distress - Routine HEENT Exam Head: Present: normocephalic Eye: Present: normal appearance ENT: Present: mucous membranes moist - Routine Neck Exam Present: full ROM - Routine Respiratory Exam Present: CTAB - Routine Cardiovascular Exam Cardiovascular: Present: RRR, S1, S2. Absent: rubs, S3, S4 - Routine Abdominal Exam Present: normal bowel sounds, nontender. Absent: diminished bowel sounds, organomegaly - Routine Rectal Exam Patient deferred: digital exam - Routine Extremities Exam Absent: tenderness - Routine Back/Spine/Pelvis Exam Back/Spine: Present: full ROM - Routine Skin Exam Present: intact, normal turgor - Routine Neurological Exam Present: alert, oriented X3 - Detailed Neurological Exam: Coma Scale Eye Opening: Spontaneous (4) - Routine Psychiatric Exam Present: normal affect Data - Labs CBC & Chem 7: 07/29/21 10:30 07/29/21 10:30 Labs: 04/07/21 11:05 CA 27.29 Routine Complete Blood Count Auto Diff Routine Comprehensive Met. Panel Routine Vitamin D 25-OH Total Routine Laboratory Last Values WBC 9.9 X10*3/uL (4.8-10.8) 04/07/21 11:05 RBC 4.96 X10*6/uL (4.20-5.50) 04/07/21 11:05 Hgb 14.1 g/dl (12.0-16.0) 04/07/21 11:05 Hct 42.0 % (37-47) 04/07/21 11:05 MCV 84.7 fL (80-98) 04/07/21 11:05 MCH 28.4 pg (27.0-33.0) 04/07/21 11:05 MCHC 33.6 g/dl (31.0-35.0) 04/07/21 11:05 RDW 13.4 % (11.0-16.0) 04/07/21 11:05 Plt Count 190 X10*3/uL (160-400) 04/07/21 11:05 MPV 9.6 fL (9.4-12.3) 04/07/21 11:05 Immature Gran % (Auto) 0.3 % (0.0-0.4) 04/07/21 11:05 Neut % (Auto) 75.7 % (45-73) H 04/07/21 11:05 Lymph % (Auto) 18.3 % (20-40) L 04/07/21 11:05 Schuyler % (Auto) 5.5 % (2-11) 04/07/21 11:05 Eos % (Auto) 0.0 % (0-4) 04/07/21 11:05 Baso % (Auto) 0.2 % (0-2) 04/07/21 11:05 Lymph # (Auto) 1.8 X10*3/uL (1.2-4.9) 04/07/21 11:05 Schuyler # (Auto) 0.6 X10*3/uL (0.1-1.2) 04/07/21 11:05 Eos # (Auto) 0.0 X10*3/uL (0.0-0.4) 04/07/21 11:05 Baso # (Auto) 0.0 X10*3/uL (0.0-0.2) 04/07/21 11:05 Abs Immat Gran (auto) 0.03 X10*3/uL (0.00-0.03) 04/07/21 11:05 Absolute Neuts (auto) 7.5 X10*3/uL (2.0-8.3) 04/07/21 11:05 Absolute Nucleated RBC 0.000 X10*3/uL (0.0-0.012) 04/07/21 11:05 Nucleated RBC % (auto) 0.0 /100WBC (0.0-0.2) 04/07/21 11:05 Sodium 140 mmol/L (135-145) 04/07/21 11:05 Potassium 4.5 mmol/L (3.3-5.1) 04/07/21 11:05 Chloride 108 mmol/L (96-108) 04/07/21 11:05 Carbon Dioxide 26 mmol/L (22-29) 04/07/21 11:05 Anion Gap 11 (12-20) L 04/07/21 11:05 BUN 11 mg/dL (9-16) 04/07/21 11:05 Creatinine 0.71 mg/dL (0.5-1.4) 04/07/21 11:05 Estim Creat Clear Calc 86.8 04/07/21 11:05 Estimated GFR > 60 04/07/21 11:05 Random Glucose 86 mg/dL (60-115) 04/07/21 11:05 Calcium 9.2 mg/dL (8.4-10.2) 04/07/21 11:05 Total Bilirubin 0.4 mg/dL (0.0-1.0) 04/07/21 11:05 AST 18 U/L (5-31) 04/07/21 11:05 ALT 14 U/L (0-31) 04/07/21 11:05 Alkaline Phosphatase 69 U/L (39-117) 04/07/21 11:05 Total Protein 6.6 g/dL (6.5-8.0) 04/07/21 11:05 Albumin 4.1 g/dL (3.5-5.0) 04/07/21 11:05 CA 27-29 19 U/mL (<38) 04/07/21 11:05 25-OH Vitamin D Total 49.8 ng/mL (>30) 04/07/21 11:05 Assessment and Plan Patient Active problem list reviewed?: Yes (1) Breast cancer of upper-outer quadrant of left female breast Status: Resolved Assessment and plan: This is a pleasant 45-year-old lady with recent diagnosis of left-sided breast cancer upper outer quadrant. 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 Question is about neoadjuvant chemotherapy. Since the tumor size is small less than 2 cm., the nodes appear negative on the ultrasound. Would recommend upfront surgical resection for exact staging. She will need chemotherapy since she is triple negative. I discussed the case with Dr. Dutta, as well. She underwent a lumpectomy with sentinel node dissection. Her pathology revealed: Pathology revealed: Invasive ductal carcinoma, high grade, 3 cm, with small satellite nodules x2 approximately 0.1 cm. DCIS nuclear grade 3 with comedonecrosis and calcifications. No lymphovascular invasion. Margins negative for invasive and in-situ ductal carcinoma, however invasive ductal carcinoma is less than 0.1 cm to the posterior margin and approximately 0.1 cm to the medial and lateral margins. Re-excision negative. ER negative/ME negative and HER2 Vonda negative. Three sentinel nodes were negative. No lymphovascular invasion. Margins negative for invasive and in-situ ductal carcinoma, however invasive ductal carcinoma is less than 0.1 cm to the posterior margin and approximately 0.1 cm to the medial and lateral margins. Re-excision negative. ER negative/ME negative and HER2 Vonda negative. Three sentinel nodes were negative. She was deemed a candidate for adjuvant chemotherapy, being triple negative. Choices of chemotherapy included dose dense AC x4, followed by Taxol. However she does have a history of cardiac issues with diastolic dysfunction. In the situation I intended to avoid Adriamycin. She had an echocardiogram at [facility] few weeks prior which showed EF of 55%. Recent data suggest benefit of adjuvant carboplatin and Taxol, especially for triple negative disease. She had a Port-A-Cath placed to facilitate the chemotherapy. She underwent chemotherapy teaching. She got started on 06/03. So far she is doing well. She has tolerated two cycles quite weel, without incident. PLAN: She will start cycle 3 of adjuvant carbotaxol, today. The plan is, to continue her on the current regimen, to complete 6 cycles. She will subsequently be referred for post lumpectomy radiation therapy. All her and her friend's questions were answered to her satisfaction. She will return in a month for a follow-up visit. Thank you, CC: Dr. Dutta. Dr. Enriquez. - Time Spent With Patient Time Spent with Patient (in minutes): 25
[2021-07-29 11:40] LABS: Alanine Aminotransferase 25 U/L (0-31); Albumin Level 3.9 g/dL (3.5-5.0); Alkaline Phosphatase 75 U/L (39-117); Anion Gap 11 (12-20); Aspartate Amino Transferase 18 U/L (5-31); Bilirubin Total 0.3 mg/dL (0.0-1.0); Blood Urea Nitrogen 12 mg/dL (9-16); Calcium 8.7 mg/dL (8.4-10.2); Carbon Dioxide 24 mmol/L (22-29); Chloride 108 mmol/L (96-108); Creatinine Clr Calc Pharmacy 88.7; Estimated Glomerular Filt Rate > 60; Glucose Random 101 mg/dL (60-115); Potassium 4.2 mmol/L (3.3-5.1); Sodium 139 mmol/L (135-145); Total Protein 6.5 g/dL (6.5-8.0)
[2021-07-29] MEDS: Acetaminophen 325 MG TABLET 650 MG PO (11:48)
[2021-07-29] MEDS: dexAMETHasone sod phosphate/NS 12 MG/50 ML PIGGYBACK 200 MG IV (11:51)
[2021-07-29] MEDS: diphenhydrAMINE HCL 50 MG/ML VIAL 25 MG IVPUSH (11:52)
[2021-07-29] MEDS: Famotidine/PF 20 MG/2 ML VIAL IVPUSH (11:52)
[2021-07-29] MEDS: CARBOplatin 220 MG in 0.9 % Sodium Chloride 250 ML 544 MG IV (14:04)
--- NOTE | 2021-07-29 15:25 | MHC.HEMONC ---
C3D1 Carboplatin/Paclitaxel. Port accessed with blood return noted. Labs drawn from port-specimen to lab. 0.9% NS infusing. Pt states she has occasional nausea after chemotherapy that zofran helps. States feels well today. Lab results reviewed. Okay to receive treatment today. Pre medicated with Zofran 16mg IV, Benadryl 25mg IV, Pepcid 20mg IV, Decadron 12mg IV, Tylenol 650mg orally. Paclitaxel/Carboplatin IV given as ordered-tolerated well. Dr Torres into see pt. Port flushed with heparin and de accessed. Discharge packet given with next appointment. Order for echo given to Claribel for processing. Pt states she may have echo performed at [facility]. Pt states she will call department to notify us of appointment.
[2021-08-05 10:42] VITALS: BP 126/82; PULSE 96; RESP 18; TEMP 36.6; O2SAT 99; BMI 27.3
[2021-08-05 10:42] LABS: MANUAL DIFF FLAG NO
[2021-08-05 10:50] LABS: Basophils Percent Auto 0.3 % (0-2); Hematocrit 33.3 % (37-47); Hemoglobin 11.6 g/dl (12.0-16.0); Imm Gran Abs Auto 0.08 X10*3/uL (0.00-0.03); Imm Gran Pct Auto 1.3 % (0.0-0.4); Lymphocytes Absolute Auto 2.1 X10*3/uL (1.2-4.9); Lymphocytes Percent Auto 34.5 % (20-40); Mean Corpuscular HGB Conc 34.8 g/dl (31.0-35.0); Mean Corpuscular Hemoglobin 30.1 pg (27.0-33.0); Mean Corpuscular Volume 86.5 fL (80-98); Mean Platelet Volume 9.9 fL (9.4-12.3); Monocytes Absolute Auto 0.5 X10*3/uL (0.1-1.2); Monocytes Percent Auto 7.9 % (2-11); Neutrophils Absolute Auto 3.4 X10*3/uL (2.0-8.3); Platelet Count 121 X10*3/uL (160-400); Red Blood Count 3.85 X10*6/uL (4.20-5.50); White Blood Count 6.1 X10*3/uL (4.8-10.8)
[2021-08-05 11:03] LABS: Alanine Aminotransferase 32 U/L (0-31); Alkaline Phosphatase 72 U/L (39-117); Anion Gap 10 (12-20); Aspartate Amino Transferase 21 U/L (5-31); Bilirubin Total 0.4 mg/dL (0.0-1.0); Blood Urea Nitrogen 13 mg/dL (9-16); Calcium 8.8 mg/dL (8.4-10.2); Carbon Dioxide 26 mmol/L (22-29); Chloride 108 mmol/L (96-108); Creatinine Clr Calc Pharmacy 83.6; Estimated Glomerular Filt Rate > 60; Glucose Random 103 mg/dL (60-115); Potassium 4.2 mmol/L (3.3-5.1); Sodium 140 mmol/L (135-145); Total Protein 6.6 g/dL (6.5-8.0)
[2021-08-05] MEDS: Famotidine/PF 20 MG/2 ML VIAL IVPUSH (11:12)
[2021-08-05] MEDS: dexAMETHasone sod phosphate/NS 12 MG/50 ML PIGGYBACK 200 MG IV (11:12)
[2021-08-05] MEDS: Acetaminophen 325 MG TABLET 650 MG PO (11:12)
[2021-08-05] MEDS: diphenhydrAMINE HCL 50 MG/ML VIAL 25 MG IVPUSH (11:12)
[2021-08-05] MEDS: Heparin Sodium,Porcine Flush 500 UNIT/5 ML SYRINGE IVFLUSH (11:13)
[2021-08-05] MEDS: CARBOplatin 220 MG in 0.9 % Sodium Chloride 250 ML 544 MG IV (13:37)
--- NOTE | 2021-08-05 13:45 | MHC.HEMONC ---
Pt here for C3D8 Carboplatin/Paclitaxel. Port accessed with blood return noted. Labs drawn from port-specimen to lab. 0.9% NS infusing. Pt states she has some nausea and heartburn after receiving chemotherapy. States zofran helps with nausea, takes alice-seltzer and or tums for heartburn with relief. Lab results reviewed-okay to receive treatment today. Pre medicated with zofran 16mg IV, benadryl 25mg IV, Pepcid 20mg IV, Decadron 12 mg IV, Tylenol 650mg IV. Paclitaxel/Carboplatin given as ordered-tolerated well. Port flushed with heparin and de accessed. Follow up appointment scheduled. Discharge packet given.
[2021-08-12 10:20] VITALS: BP 118/72; PULSE 102; RESP 18; TEMP 36.4; O2SAT 100; BMI 27.6
[2021-08-12 10:23] LABS: MANUAL DIFF FLAG NO
[2021-08-12 10:33] LABS: Basophils Percent Auto 0.2 % (0-2); Hematocrit 31.6 % (37-47); Hemoglobin 11.2 g/dl (12.0-16.0); Imm Gran Abs Auto 0.04 X10*3/uL (0.00-0.03); Imm Gran Pct Auto 0.8 % (0.0-0.4); Lymphocytes Absolute Auto 1.7 X10*3/uL (1.2-4.9); Lymphocytes Percent Auto 31.9 % (20-40); Mean Corpuscular HGB Conc 35.4 g/dl (31.0-35.0); Mean Corpuscular Hemoglobin 30.9 pg (27.0-33.0); Mean Corpuscular Volume 87.3 fL (80-98); Mean Platelet Volume 10.3 fL (9.4-12.3); Monocytes Absolute Auto 0.4 X10*3/uL (0.1-1.2); Monocytes Percent Auto 6.7 % (2-11); Neutrophils Absolute Auto 3.2 X10*3/uL (2.0-8.3); Neutrophils Percent Auto 60.4 % (45-73); Platelet Count 123 X10*3/uL (160-400); Red Blood Count 3.62 X10*6/uL (4.20-5.50); Red Cell Distribution Width 16.6 % (11.0-16.0); White Blood Count 5.2 X10*3/uL (4.8-10.8)
[2021-08-12 10:59] LABS: Alanine Aminotransferase 45 U/L (0-31); Albumin Level 3.8 g/dL (3.5-5.0); Alkaline Phosphatase 68 U/L (39-117); Anion Gap 12 (12-20); Aspartate Amino Transferase 24 U/L (5-31); Bilirubin Total 0.5 mg/dL (0.0-1.0); Blood Urea Nitrogen 14 mg/dL (9-16); Calcium 8.8 mg/dL (8.4-10.2); Carbon Dioxide 25 mmol/L (22-29); Chloride 107 mmol/L (96-108); Estimated Glomerular Filt Rate > 60; Glucose Random 103 mg/dL (60-115); Sodium 140 mmol/L (135-145); Total Protein 6.4 g/dL (6.5-8.0)
[2021-08-12] MEDS: Acetaminophen 325 MG TABLET 650 MG PO (11:32)
[2021-08-12] MEDS: Famotidine/PF 20 MG/2 ML VIAL IVPUSH (11:32)
[2021-08-12] MEDS: dexAMETHasone sod phosphate/NS 12 MG/50 ML PIGGYBACK 200 MG IV (11:32)
[2021-08-12] MEDS: Heparin Sodium,Porcine Flush 500 UNIT/5 ML SYRINGE IVFLUSH (11:32)
[2021-08-12] MEDS: diphenhydrAMINE HCL 50 MG/ML VIAL 25 MG IVPUSH (11:33)
--- NOTE | 2021-08-12 13:36 | MHC.HEMONC ---
Pt here for C3 D15 Paclitaxel/Carboplatin. Port accessed with blood return noted-labs drawn from port-specimen to lab. 0.9% NS infusing. Pt states she continues with mild nausea and heartburn a few days after chemotherapy treatment. Also has had increased fatigue requiring her to take a nap during the day. States is working on getting appointment for echo. Lab results reviewed-okay to receive treatment today. Pre medicated with Zofran 16mg IV, Tylenol 650mg orally, Benadryl 25mg IV, Decadron 12mg IV, Pepcid 20mg IV. Paclitaxel/Carboplatin given as ordered-tolerated well. Port flushed with heparin and de accessed. Follow up appointment scheduled. Discharge packet given.
[2021-08-12] MEDS: CARBOplatin 220 MG in 0.9 % Sodium Chloride 250 ML 544 MG IV (13:49)
[2021-08-26 10:06] VITALS: BP 141/67; PULSE 102; RESP 18; TEMP 36.4; O2SAT 98; BMI 27.7
[2021-08-26 10:46] LABS: Basophils Percent Auto 0.2 % (0-2); Hematocrit 29.9 % (37.0-47.0); Hemoglobin 10.2 g/dl (12.0-16.0); Imm Gran Abs Auto 0.03 X10*3/uL (0.00-0.03); Imm Gran Pct Auto 0.7 % (0.0-0.4); Lymphocytes Absolute Auto 1.6 X10*3/uL (1.2-4.9); Lymphocytes Percent Auto 37.2 % (20-40); MANUAL DIFF FLAG SCAN; Mean Corpuscular HGB Conc 34.1 g/dl (31.0-35.0); Mean Corpuscular Hemoglobin 30.6 pg (27.0-33.0); Mean Corpuscular Volume 89.8 fL (80.0-98.0); Mean Platelet Volume 9.2 fL (9.4-12.3); Monocytes Absolute Auto 0.5 X10*3/uL (0.1-1.2); Neutrophils Absolute Auto 2.16 x10*3/uL (2.0-8.3); Neutrophils Percent Auto 49.9 % (45-73); Red Blood Count 3.33 X10*6/uL (4.20-5.50); Red Cell Distribution Width 18.3 % (11.0-16.0); SCAN SMEAR FLAG 1; White Blood Count 4.3 X10*3/uL (4.8-10.8)
[2021-08-26 10:47] LABS: Platelet Count 96 X10*3/uL (160-400)
[2021-08-26 11:04] LABS: Alanine Aminotransferase 27 U/L (0-31); Albumin Level 3.8 g/dL (3.5-5.0); Alkaline Phosphatase 73 U/L (39-117); Anion Gap 12 (12-20); Aspartate Amino Transferase 21 U/L (5-31); Bilirubin Total 0.4 mg/dL (0.0-1.0); Blood Urea Nitrogen 11 mg/dL (9-16); Calcium 8.2 mg/dL (8.4-10.2); Carbon Dioxide 24 mmol/L (22-29); Chloride 108 mmol/L (96-108); Creatinine Clr Calc Pharmacy 87.7; Estimated Glomerular Filt Rate > 60; Glucose Random 106 mg/dL (60-115); Potassium 3.8 mmol/L (3.3-5.1); Sodium 140 mmol/L (135-145); Total Protein 6.1 g/dL (6.5-8.0)
[2021-08-26 11:23] LABS: SLIDE REVIEW VERIFIED
[2021-08-26] MEDS: Famotidine/PF 20 MG/2 ML VIAL IVPUSH (11:38)
[2021-08-26] MEDS: Acetaminophen 325 MG TABLET 650 MG PO (11:39)
[2021-08-26] MEDS: dexAMETHasone sod phosphate/NS 12 MG/50 ML PIGGYBACK 200 MG IV (12:05)
[2021-08-26] MEDS: diphenhydrAMINE HCL 50 MG/ML VIAL 25 MG IVPUSH (12:26)
[2021-08-26] MEDS: CARBOplatin 220 MG in 0.9 % Sodium Chloride 250 ML 544 MG IV (14:06)
[2021-08-26] MEDS: Heparin Sodium,Porcine Flush 500 UNIT/5 ML SYRINGE IVFLUSH (14:46)
--- NOTE | 2021-08-26 15:35 | MHC.HEMONC ---
Pt here for C4D1 Paclitaxel/Carboplatin. Port accessed with blood return after several position changes and normal saline flushes. Labs drawn from port-specimen to lab. Pt states she has a double ear infection Pt states she is taking a z-pack and ear drops. Slight Bilateral lower leg edema noted. Pt encouraged to elevate legs when possible and drink plenty of fluids. Lab results reviewed-okay to receive treatment today. Pre medicated with Tylenol 650mg orally, Benadryl 25 mg IV, Decadron 12mg IV, Pepcid 20mg IV, Zofran 16mg IV. Paclitaxel/Carboplatin given as ordered-tolerated well. Port flushed with heparin and de accessed. Follow up appoinment scheduled. Discharge packet given.
[2021-09-02 10:51] VITALS: BP 154/72; PULSE 105; RESP 18; TEMP 36.3; O2SAT 99; BMI 27.6
[2021-09-02 11:32] LABS: MANUAL DIFF FLAG NO
[2021-09-02 11:36] LABS: Hematocrit 29.7 % (37.0-47.0); Hemoglobin 10.2 g/dl (12.0-16.0); Imm Gran Abs Auto 0.04 X10*3/uL (0.00-0.03); Imm Gran Pct Auto 0.8 % (0.0-0.4); Lymphocytes Absolute Auto 1.7 X10*3/uL (1.2-4.9); Lymphocytes Percent Auto 33.8 % (20-40); Mean Corpuscular HGB Conc 34.3 g/dl (31.0-35.0); Mean Corpuscular Hemoglobin 31.4 pg (27.0-33.0); Mean Corpuscular Volume 91.4 fL (80.0-98.0); Mean Platelet Volume 10.2 fL (9.4-12.3); Monocytes Absolute Auto 0.3 X10*3/uL (0.1-1.2); Monocytes Percent Auto 6.2 % (2-11); Neutrophils Absolute Auto 3.1 x10*3/uL (2.0-8.3); Neutrophils Percent Auto 59.2 % (45-73); Red Blood Count 3.25 X10*6/uL (4.20-5.50); Red Cell Distribution Width 17.7 % (11.0-16.0); White Blood Count 5.2 X10*3/uL (4.8-10.8)
[2021-09-02 11:42] LABS: Platelet Count 89 X10*3/uL (160-400)
[2021-09-02 12:12] LABS: Alanine Aminotransferase 21 U/L (0-31); Albumin Level 3.6 g/dL (3.5-5.0); Alkaline Phosphatase 65 U/L (39-117); Anion Gap 12 (12-20); Aspartate Amino Transferase 19 U/L (5-31); Bilirubin Total 0.3 mg/dL (0.0-1.0); Blood Urea Nitrogen 11 mg/dL (9-16); Calcium 8.5 mg/dL (8.4-10.2); Carbon Dioxide 25 mmol/L (22-29); Chloride 107 mmol/L (96-108); Creatinine Clr Calc Pharmacy 87.6; Estimated Glomerular Filt Rate > 60; Glucose Random 126 mg/dL (60-115); Potassium 4.1 mmol/L (3.3-5.1); Sodium 140 mmol/L (135-145); Total Protein 6.1 g/dL (6.5-8.0)
[2021-09-02] MEDS: Acetaminophen 325 MG TABLET 650 MG PO (12:24)
[2021-09-02] MEDS: Famotidine/PF 20 MG/2 ML VIAL IVPUSH (12:24)
[2021-09-02] MEDS: dexAMETHasone sod phosphate/NS 12 MG/50 ML PIGGYBACK 200 MG IV (12:24)
[2021-09-02] MEDS: diphenhydrAMINE HCL 50 MG/ML VIAL 25 MG IVPUSH (12:28)
[2021-09-02] MEDS: CARBOplatin 220 MG in 0.9 % Sodium Chloride 250 ML 544 MG IV (15:06)
[2021-09-02] MEDS: Alteplase Cath Clear 2 MG VIAL INTRACATH (15:24)
[2021-09-02] MEDS: Heparin Sodium,Porcine Flush 500 UNIT/5 ML SYRINGE IVFLUSH (15:27)
--- NOTE | 2021-09-02 16:21 | MHC.HEMONC ---
Pt here for C4D8 Paclitaxel/Carboplatin. Pt states she feels well today. Port accessed with no blood return noted-flushes well with 0.9% NS. Pt able to turn head side to side, cough, raise arms overhead with no blood return from port. Dr Torres notified. Plan for radiology exam for patency. Appointment scheduled for 134 today. #22 angio inserted in right forearm-blood return noted. 0.9% NS infusing. Labs drawn by back tacker-specimen to lab. Lab results reviewed-okay to receive treatment today. Pre medicated with decadron 12mg IV, Tylenol 650mg orally, zofran 16mg IV, Benadryl 25mg IV, Pepcid 20mg IV. Paclitaxel/Carboplatin given as ordered-tolerated well. Pt to radiology for port check-fibin sheath noted per radiology-plan for Cathflo. Dr Dodd covering for Dr Torres ordered Cathflo. Cathflo Activase given via port as directed. After 30 minutes blood return noted- 2ml cathflo and blood withdrew. Port flushed with 0.9% NS and heparin. Port de accessed. Peripheral IV removed-no edema at site. Follow up appointment scheduled. Discharge packet given.
[2021-09-09 10:28] VITALS: BP 117/76; PULSE 94; RESP 18; TEMP 36.3; O2SAT 100; BMI 27.9
[2021-09-09 10:40] LABS: MANUAL DIFF FLAG NO
[2021-09-09 10:44] LABS: Basophils Percent Auto 0.3 % (0-2); Hemoglobin 10.1 g/dl (12.0-16.0); Imm Gran Abs Auto 0.04 X10*3/uL (0.00-0.03); Lymphocytes Absolute Auto 1.7 X10*3/uL (1.2-4.9); Lymphocytes Percent Auto 44.6 % (20-40); Mean Corpuscular HGB Conc 34.8 g/dl (31.0-35.0); Mean Corpuscular Hemoglobin 31.9 pg (27.0-33.0); Mean Corpuscular Volume 91.5 fL (80.0-98.0); Mean Platelet Volume 9.6 fL (9.4-12.3); Monocytes Absolute Auto 0.3 X10*3/uL (0.1-1.2); Monocytes Percent Auto 8.2 % (2-11); Neutrophils Absolute Auto 1.8 x10*3/uL (2.0-8.3); Neutrophils Percent Auto 45.9 % (45-73); Platelet Count 102 X10*3/uL (160-400); Red Blood Count 3.17 X10*6/uL (4.20-5.50); White Blood Count 3.9 X10*3/uL (4.8-10.8)
--- NOTE | 2021-09-09 11:00 | PM.HEMONCPN ---
Medical Summary - Medical Summary Date of Service: 09/09/21 Chief complaint: Follow-up for: Breast cancer. Medical Summary: DIAGNOSIS: LEFT BREAST CANCER UPPER OUTER QUADRANT. CURRENT THERAPY: STATUS POST LUMPECTOMY ON 04/29. Pathology revealed: Invasive ductal carcinoma, high grade, 3 cm, with small satellite nodules x2 approximately 0.1 cm. DCIS nuclear grade 3 with comedonecrosis and calcifications. No lymphovascular invasion. Margins negative for invasive and in-situ ductal carcinoma, however invasive ductal carcinoma is less than 0.1 cm to the posterior margin and approximately 0.1 cm to the medial and lateral margins. Re-excision negative. ER negative/RI negative and HER2 Vonda negative. Three sentinel nodes were negative. Currently on weekly carboplatin Taxol based chemotherapy. Cycle 1 on 06/03. Cycle 4, day 15, today. (Gets treatment day 1, 8 and 15.) Interval History Interval history: Marah Rivera is a pleasant 45 year old lady, here for a follow-up visit. She is here to recieve cycle 4, day 15, of Carbo/Taxol weekly. She tells me she is, hanging in there. After her treatment she feels rather fatigued. She has nausea and heartburn. The Zofran does help. She has noticed a little edema in her legs. She has been trying to stay active. Sometimes, she cannot sleep for a couple of nights. She feels it is the Decadron that she gets. No fever nor chills. Appetite is decent. Weight is stable. She denies headaches. Occasional dizziness. She has had symptoms of chest pain at rest and on exertion. She gets short of breath on exertion. Denies abdominal pain. She gets occasional heartburn. No nausea vomiting. Denies bowel complaints. No gross blood in the stools. She has frequency of micturition. She gets generalized aches and pains. She has anxiety and depression. 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 An ultrasound was done which revealed a cyst in the ovary. She did blood work and reassured her. Previous history: She had an abnormal mammogram. This was done on ,02/28 and revealed: Left breast has new mass, posterior upper outer quadrant in area of palpable in measuring 1.7 cm. Ultrasound demonstrated: Heterogenous macro lobulated hypoechoic mass posterior upper outer quadrant measurin.8 and 1.4 time 1.7 cm. Left axillary nodes showing normal fatty hilus and normal color. 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 She had her lumpectomy done on 04/29. She tells me that her surgery went well. The incision does appear to be healing, the open area has closed up. No more drainage. She had a follow-up appointment with Dr. Dutta. 2. Cardiac issues: She has had some cardiac issues. She was seen by Dr. Morse who diagnosed diastolic dysfunction. She went to Dr. Trevino in [place] who did right heart catheterization. He mention some muscular dysfunction/autonomic dysfunction. No treatment was suggested. Clinical trial was offered that she declined. She actually had an appointment with Dr. Brewer. 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 She still has her regular periods. Family history: Her mom was diagnosed with breast cancer at 38. She lived for 7 years. of metastatic disease. 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 She is not . She has no children. She smokes half a pack a day. She drinks very little alcohol. Review of Systems - Constitutional Reports no additional constitutional complaints, Reports fatigue, Reports lack of energy, Reports malaise, Denies weight loss Comments: After chemotherapy. - Eyes Reports no additional eye complaints - ENT Reports no additional ear, nose, mouth, and throat complaints - Cardiovascular Reports no additional cardiovascular complaints - Respiratory Reports no additional respiratory complaints - Gastrointestinal Reports no additional gastrointestinal complaints, Reports bloating, Reports dyspepsia, Reports heartburn, Reports nausea - Genitourinary Reports no additional female genitourinary complaints, Reports frequent nighttime urination - Musculoskeletal Reports no additional musculoskeletal complaints - Integumentary/Breasts Skin/Breast: Reports no additional skin complaints - Neurologic Reports no additional neurologic complaints, Reports weakness - Psychiatric Reports no additional psychiatric complaints - Endocrine Reports no additional endocrine complaints - Hematologic/Lymphatic Reports no additional hematologic/lymphatic complaints - Allergic/Immunologic Reports no additional allergic/immunologic complaints [facility] Medical History: Medical History (Last Updated 07/06/21 @ 23:15 by Carlyn Enriquez MD) Diastolic dysfunction Exertional dyspnea Family history of breast cancer gene mutation in first degree relative Hx of cyst of breast Hx of lipoma Invasive ductal carcinoma of left breast Left breast mass Functional capacity: independent ambulation Patient : No Family History: Family History (Last Updated 06/26/21 @ 11:34 by Maria Isabel Garcia CMA) Mother Breast cancer, Onset Age: 38 Father CAD (coronary artery disease) Hyperlipidemia HTN (hypertension) History of cardiac defibrillator placement Pacemaker Family/Other Lymphoma Paternal Grandmother Dementia Sister Substance use disorder Mental health disorder Surgical History: Surgical History (Last Reviewed 06/09/21 @ 16:20 by Odell Dutta MD) Endometriosis History of excision of mass History of lumpectomy of left breast Social History: Social History (Last Reviewed 06/09/21 @ 16:20 by Odell Dutta MD) Living Situation History: Housing: House Alcohol History: Alcohol intake: current Alcohol History Details: Alcohol intake frequency: holiday/special occasion Tobacco History: Patient Tobacco Use Status: Current everyday Tobacco Tobacco use type: Cigarette Cigarette Packs Per Day: 0.5 Substance Use History: Use of substances other than those prescribed or required for medical reasons: No Substance Use Type: Marijuana Nutrition Assessment: Patient : No Occupation Assessmet: service: No Current occupational status: unemployed Oncology Screenings - ECOG Performance Status ECOG Performance Status: 0 Home Medications and Allergies Current Medications: Current Medications Acetaminophen (Acetaminophen 325 Mg Tablet) 650 mg PO ONCE GIDEON Stop: 09/09/21 23:59 Diphenhydramine HCl (Diphenhydramine Hcl 50 Mg/Ml Vial) 25 mg IVPUSH ONCE GIDEON Stop: 09/09/21 23:59 Famotidine (Famotidine/Pf 20 Mg/2 Ml Vial) 20 mg IVPUSH ONCE GIDEON Stop: 09/09/21 23:59 Heparin Sodium (Porcine) (Heparin Sodium,Porcine Flush 500 Unit/5 Ml Syringe) 500 unit IVFLUSH ONCE GIDEON Stop: 09/09/21 23:59 Dexamethasone Sodium Phosphate (Decadron) 12 mg in 50 mls @ 200 mls/hr IV ONCE GIDEON Stop: 09/09/21 23:59 Ondansetron HCl (Zofran) 16 mg in 50 mls @ 200 mls/hr IV ONCE GIDEON Stop: 09/09/21 23:59 Home Medications Medication Instructions Recorded Confirmed Type metoprolol tartrate 25 mg tablet 25 mg PO TID 01/14/21 09/09/21 History nitroglycerin 0.4 mg sublingual 0.4 mg SUBLINGUAL Q5M PRN 01/14/21 09/09/21 History tablet Vitamin D (with calcium) 600 mg PO DAILY 05/06/21 09/09/21 History Allergies Allergy/AdvReac Type Severity Reaction Status Date / Time bee pollen [BEE STINGS] Allergy Severe ANAPHYLAXIS Verified 09/09/21 10:30 Penicillins Allergy Intermediate Unknown Verified 09/09/21 10:30 danazol Allergy Unknown hand Verified 09/09/21 10:30 swelling sertraline [Zoloft] AdvReac Unknown increasedi Verified 09/09/21 10:30 rritability codeine AdvReac Unknown nausea Uncoded 09/09/21 10:30 prilosec AdvReac Unknown bloating Uncoded 09/09/21 10:30 Exam Vital signs: Vital Signs Temp 97.4 F 09/09/21 10:28 Pulse 94 09/09/21 10:28 Resp 18 09/09/21 10:28 BP 117/76 09/09/21 10:28 Pulse Ox 100 09/09/21 10:28 Intake & Output 09/08/21 09/09/21 09/09/21 18:59 06:59 18:59 Other: Weight 69.3 kg Weight in Grams [id number] Weight 69.3 kg Body Mass Index 27.9 - Constitutional Present: mild distress - Routine HEENT Exam Head: Present: normocephalic Eye: Present: normal appearance ENT: Present: mucous membranes moist - Routine Neck Exam Present: full ROM - Routine Respiratory Exam Present: CTAB - Routine Cardiovascular Exam Cardiovascular: Present: RRR, S1, S2. Absent: rubs, S3, S4 - Routine Abdominal Exam Present: normal bowel sounds, nontender. Absent: diminished bowel sounds, organomegaly - Routine Rectal Exam Patient deferred: digital exam - Routine Extremities Exam Absent: tenderness - Routine Back/Spine/Pelvis Exam Back/Spine: Present: full ROM - Routine Skin Exam Present: intact, normal turgor - Routine Neurological Exam Present: alert, oriented X3 - Detailed Neurological Exam: Coma Scale Eye Opening: Spontaneous (4) - Routine Psychiatric Exam Present: normal affect Data - Labs CBC & Chem 7: 09/09/21 10:20 09/09/21 10:20 Assessment and Plan Patient Active problem list reviewed?: Yes (1) Breast cancer of upper-outer quadrant of left female breast Status: Resolved Assessment and plan: This is a pleasant 45-year-old lady with recent diagnosis of left-sided breast cancer upper outer quadrant. 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 Question is about neoadjuvant chemotherapy. Since the tumor size is small less than 2 cm., the nodes appear negative on the ultrasound. Would recommend upfront surgical resection for exact staging. She will need chemotherapy since she is triple negative. I discussed the case with Dr. Dutta, as well. She underwent a lumpectomy with sentinel node dissection. Her pathology revealed: Pathology revealed: Invasive ductal carcinoma, high grade, 3 cm, with small satellite nodules x2 approximately 0.1 cm. DCIS nuclear grade 3 with comedonecrosis and calcifications. No lymphovascular invasion. Margins negative for invasive and in-situ ductal carcinoma, however invasive ductal carcinoma is less than 0.1 cm to the posterior margin and approximately 0.1 cm to the medial and lateral margins. Re-excision negative. ER negative/RI negative and HER2 Vonda negative. Three sentinel nodes were negative. No lymphovascular invasion. Margins negative for invasive and in-situ ductal carcinoma, however invasive ductal carcinoma is less than 0.1 cm to the posterior margin and approximately 0.1 cm to the medial and lateral margins. Re-excision negative. ER negative/RI negative and HER2 Vonda negative. Three sentinel nodes were negative. She was deemed a candidate for adjuvant chemotherapy, being triple negative. Choices of chemotherapy included dose dense AC x4, followed by Taxol. However she does have a history of cardiac issues with diastolic dysfunction. In the situation I intended to avoid Adriamycin. She had an echocardiogram at [facility] few weeks prior which showed EF of 55%. Recent data suggest benefit of adjuvant carboplatin and Taxol, especially for triple negative disease. She had a Port-A-Cath placed to facilitate the chemotherapy. She got started on 06/03. So far she is doing well. She is here for cycle 4 day 15. She has tolerated three cycles quite well, without incident. PLAN: She will complete this cycle. Will have 2 more treatments to go. The plan is, to continue her on the current regimen, to complete 6 cycles. She will subsequently be referred for post lumpectomy radiation therapy. She prefers to go to [facility]. An appointment will be made. She will return in a month for a follow-up. All her and her friend's questions were answered to her satisfaction. She will return in a month for a follow-up visit. Thank you, CC: Dr. Dutta. Dr. Enriquez. - Time Spent With Patient Time Spent with Patient (in minutes): 30
[2021-09-09 11:07] LABS: Alanine Aminotransferase 40 U/L (0-31); Albumin Level 3.8 g/dL (3.5-5.0); Alkaline Phosphatase 64 U/L (39-117); Anion Gap 10 (12-20); Aspartate Amino Transferase 22 U/L (5-31); Bilirubin Total 0.4 mg/dL (0.0-1.0); Blood Urea Nitrogen 13 mg/dL (9-16); Calcium 8.7 mg/dL (8.4-10.2); Carbon Dioxide 25 mmol/L (22-29); Chloride 107 mmol/L (96-108); Creatinine Clr Calc Pharmacy 85.7; Estimated Glomerular Filt Rate > 60; Glucose Random 104 mg/dL (60-115); Sodium 138 mmol/L (135-145); Total Protein 6.3 g/dL (6.5-8.0)
[2021-09-09] MEDS: Acetaminophen 325 MG TABLET 650 MG PO (11:27)
[2021-09-09] MEDS: Famotidine/PF 20 MG/2 ML VIAL IVPUSH (11:27)
[2021-09-09] MEDS: diphenhydrAMINE HCL 50 MG/ML VIAL 25 MG IVPUSH (11:28)
[2021-09-09] MEDS: dexAMETHasone sod phosphate/NS 12 MG/50 ML PIGGYBACK 200 MG IV (11:28)
[2021-09-09] MEDS: Heparin Sodium,Porcine Flush 500 UNIT/5 ML SYRINGE IVFLUSH (11:29)
--- NOTE | 2021-09-09 13:16 | MHC.HEMONC ---
Pt here for C4D15 Paclitaxel/Carboplatin. Port accessed with blood return noted. Labs drawn from port-specimen to lab. Pt states she has had some fatigue and nausea after last chemo treatment. Dark areas noted on either side of tongue. Lab results reviewed, WBC 3.9/ANC 1.[address] Torres-cristobal to receive treatment today. Pre medicated with zofran 16mg IV,Benadryl 25mg IV, Pepcid 20mg IV, Decadron 12mg IV, Actaminophen 650mg orally. Paclitaxel/Carboplatin given as ordered-tolerated well. Port flushed with heparin and de accessed. Follow up appointment scheduled. Discharge packet given. Dr Torres into see pt. CA echo limited routine order given to Altagracia for scheduling. Altagracia Philip to arrange initial visit with [facility] radiation
[2021-09-09] MEDS: CARBOplatin 220 MG in 0.9 % Sodium Chloride 250 ML 544 MG IV (13:40)
--- NOTE | 2021-09-09 15:21 | MHC.HEMONC ---
Called & LVM regarding disability paperwork application
[2021-09-23 10:23] LABS: MANUAL DIFF FLAG NO
[2021-09-23 10:24] VITALS: BP 132/80; PULSE 80; RESP 18; TEMP 36.1; O2SAT 100; BMI 28.3
[2021-09-23 10:26] LABS: Basophils Percent Auto 0.2 % (0-2); Hematocrit 31.8 % (37.0-47.0); Hemoglobin 10.6 g/dl (12.0-16.0); Imm Gran Abs Auto 0.03 X10*3/uL (0.00-0.03); Imm Gran Pct Auto 0.7 % (0.0-0.4); Lymphocytes Absolute Auto 1.7 X10*3/uL (1.2-4.9); Lymphocytes Percent Auto 37.7 % (20-40); Mean Corpuscular HGB Conc 33.3 g/dl (31.0-35.0); Mean Corpuscular Hemoglobin 31.7 pg (27.0-33.0); Mean Corpuscular Volume 95.2 fL (80.0-98.0); Mean Platelet Volume 9.2 fL (9.4-12.3); Monocytes Absolute Auto 0.7 X10*3/uL (0.1-1.2); Monocytes Percent Auto 16.4 % (2-11); Platelet Count 122 X10*3/uL (160-400); Red Blood Count 3.34 X10*6/uL (4.20-5.50); Red Cell Distribution Width 18.8 % (11.0-16.0); White Blood Count 4.4 X10*3/uL (4.8-10.8)
[2021-09-23 10:47] LABS: Alanine Aminotransferase 29 U/L (0-31); Albumin Level 3.8 g/dL (3.5-5.0); Alkaline Phosphatase 70 U/L (39-117); Anion Gap 13 (12-20); Aspartate Amino Transferase 22 U/L (5-31); Bilirubin Total 0.5 mg/dL (0.0-1.0); Blood Urea Nitrogen 10 mg/dL (9-16); Calcium 8.9 mg/dL (8.4-10.2); Carbon Dioxide 23 mmol/L (22-29); Chloride 108 mmol/L (96-108); Creatinine Clr Calc Pharmacy 83.9; Estimated Glomerular Filt Rate > 60; Glucose Random 101 mg/dL (60-115); Potassium 4.1 mmol/L (3.3-5.1); Sodium 140 mmol/L (135-145); Total Protein 6.4 g/dL (6.5-8.0)
[2021-09-23] MEDS: Acetaminophen 325 MG TABLET 650 MG PO (11:08)
[2021-09-23] MEDS: dexAMETHasone sod phosphate/NS 12 MG/50 ML PIGGYBACK 200 MG IV (11:09)
[2021-09-23] MEDS: Famotidine/PF 20 MG/2 ML VIAL IVPUSH (11:11)
[2021-09-23] MEDS: diphenhydrAMINE HCL 50 MG/ML VIAL 25 MG IVPUSH (11:13)
[2021-09-23] MEDS: CARBOplatin 220 MG in 0.9 % Sodium Chloride 250 ML 544 MG IV (13:29)
[2021-09-23] MEDS: Heparin Sodium,Porcine Flush 500 UNIT/5 ML SYRINGE IVFLUSH (14:02)
--- NOTE | 2021-09-23 15:48 | MHC.HEMONC ---
Pt here for C5 D1 Paclitaxel/Carboplatin. Port accessed with blood return noted. Labs drawn from port-specimen to lab. Pt states she feels good today. Lab results reviewed-okay to receive treatment today. Pre medicated with zofran, benadryl, pepcid, decadron, tylenol. Paclitaxel/ Carboplatin given as ordered-tolerated well. Port flushed with heparin and de accessed. Follow up appointment scheduled. Discharge packet given
[2021-09-30 10:26] LABS: MANUAL DIFF FLAG NO
[2021-09-30 10:27] VITALS: BP 104/67; PULSE 89; RESP 18; TEMP 36.4; O2SAT 100; BMI 28.2
[2021-09-30 10:28] LABS: Basophils Percent Auto 0.4 % (0-2); Hemoglobin 10.2 g/dl (12.0-16.0); Imm Gran Abs Auto 0.06 X10*3/uL (0.00-0.03); Imm Gran Pct Auto 1.1 % (0.0-0.4); Lymphocytes Absolute Auto 1.9 X10*3/uL (1.2-4.9); Lymphocytes Percent Auto 33.3 % (20-40); Mean Corpuscular HGB Conc 35.2 g/dl (31.0-35.0); Mean Corpuscular Hemoglobin 33.6 pg (27.0-33.0); Mean Corpuscular Volume 95.4 fL (80.0-98.0); Mean Platelet Volume 10.5 fL (9.4-12.3); Monocytes Absolute Auto 0.4 X10*3/uL (0.1-1.2); Monocytes Percent Auto 7.2 % (2-11); Neutrophils Absolute Auto 3.2 x10*3/uL (2.0-8.3); Red Blood Count 3.04 X10*6/uL (4.20-5.50); Red Cell Distribution Width 17.3 % (11.0-16.0); White Blood Count 5.6 X10*3/uL (4.8-10.8)
[2021-09-30 10:35] LABS: Platelet Count 76 X10*3/uL (160-400)
[2021-09-30 10:46] LABS: Alanine Aminotransferase 35 U/L (0-31); Albumin Level 3.8 g/dL (3.5-5.0); Alkaline Phosphatase 64 U/L (39-117); Anion Gap 10 (12-20); Aspartate Amino Transferase 21 U/L (5-31); Bilirubin Total 0.5 mg/dL (0.0-1.0); Blood Urea Nitrogen 11 mg/dL (9-16); Calcium 8.7 mg/dL (8.4-10.2); Carbon Dioxide 25 mmol/L (22-29); Chloride 109 mmol/L (96-108); Creatinine Clr Calc Pharmacy 96.6; Estimated Glomerular Filt Rate > 60; Glucose Random 103 mg/dL (60-115); Potassium 3.9 mmol/L (3.3-5.1); Sodium 140 mmol/L (135-145); Total Protein 6.4 g/dL (6.5-8.0)
[2021-09-30] MEDS: Famotidine/PF 20 MG/2 ML VIAL IVPUSH (11:11)
[2021-09-30] MEDS: Acetaminophen 325 MG TABLET 650 MG PO (11:17)
[2021-09-30] MEDS: dexAMETHasone sod phosphate/NS 12 MG/50 ML PIGGYBACK 200 MG IV (11:22)
[2021-09-30] MEDS: diphenhydrAMINE HCL 50 MG/ML VIAL 25 MG IVPUSH (11:22)
[2021-09-30] MEDS: Heparin Sodium,Porcine Flush 500 UNIT/5 ML SYRINGE IVFLUSH (11:23)
[2021-09-30] MEDS: CARBOplatin 220 MG in 0.9 % Sodium Chloride 250 ML 544 MG IV (13:26)
--- NOTE | 2021-09-30 15:26 | MHC.HEMONC ---
Records sent to [facility] for radiation referral
--- NOTE | 2021-09-30 16:10 | MHC.HEMONC ---
Pt here for C5D8 Carbo/ Paclitaxel. Port accessed with blood return noted. Labs drawn from port-specimen to lab. Pt states he has had some nausea and fatigue this week. Lab results reviewed-okay to receive treatment today. Pre medicated with tylenol, pepcid, benadryl, decadron, zofran. Paclitaxel/Carboplatin given as ordered. Tolerated well. Port flushed with heparin and de accessed. Follow up appointment scheduled for next week. Discharge packet given.
--- NOTE | 2021-10-02 10:48 | MHC.HEMONC ---
call from Aury Smith. She will be scheduled to see Dr Cisneros on Nov 12 at 9:15. They will call pt. Record has already been faxed.
[2021-10-07 10:18] VITALS: BP 111/67; PULSE 95; RESP 18; TEMP 36.6; O2SAT 99; BMI 28.3
[2021-10-07 10:36] LABS: MANUAL DIFF FLAG NO
[2021-10-07 10:37] LABS: Basophils Percent Auto 0.2 % (0-2); Hematocrit 28.8 % (37.0-47.0); Hemoglobin 9.8 g/dl (12.0-16.0); Imm Gran Abs Auto 0.02 X10*3/uL (0.00-0.03); Imm Gran Pct Auto 0.5 % (0.0-0.4); Lymphocytes Absolute Auto 1.7 X10*3/uL (1.2-4.9); Mean Corpuscular Hemoglobin 32.6 pg (27.0-33.0); Mean Corpuscular Volume 95.7 fL (80.0-98.0); Mean Platelet Volume 10.1 fL (9.4-12.3); Monocytes Absolute Auto 0.2 X10*3/uL (0.1-1.2); Monocytes Percent Auto 5.7 % (2-11); Neutrophils Absolute Auto 2.3 x10*3/uL (2.0-8.3); Neutrophils Percent Auto 54.6 % (45-73); Red Blood Count 3.01 X10*6/uL (4.20-5.50); Red Cell Distribution Width 17.2 % (11.0-16.0); White Blood Count 4.2 X10*3/uL (4.8-10.8)
[2021-10-07 10:40] LABS: Platelet Count 61 X10*3/uL (160-400)
[2021-10-07 11:01] LABS: Alanine Aminotransferase 36 U/L (0-31); Albumin Level 3.9 g/dL (3.5-5.0); Alkaline Phosphatase 60 U/L (39-117); Anion Gap 12 (12-20); Aspartate Amino Transferase 21 U/L (5-31); Bilirubin Total 0.4 mg/dL (0.0-1.0); Blood Urea Nitrogen 14 mg/dL (9-16); Calcium 8.8 mg/dL (8.4-10.2); Carbon Dioxide 23 mmol/L (22-29); Chloride 108 mmol/L (96-108); Creatinine Clr Calc Pharmacy 88.8; Estimated Glomerular Filt Rate > 60; Glucose Random 109 mg/dL (60-115); Potassium 3.9 mmol/L (3.3-5.1); Sodium 139 mmol/L (135-145); Total Protein 6.4 g/dL (6.5-8.0)
--- NOTE | 2021-10-07 11:10 | HE.PHANOTE ---
Addendum entered by Dante Quesada [facility] 10/07/21 11:15: KEEPING CARBOPLATIN DOSE LOWER (220 MG VS 270MG) DUE TO DECREASED PLATELETS) Original Note: CONTACTED DR MCCARTHY REGARDING PT'S PLATELETS, WHICH CONTINUE TO DECREASE. MD WOULD LIKE TO PROCEED WITH TREATMENT. PT HAS OFF WEEK NEXT WEEK AND ONLY ONE CYCLE LEFT AFTER THAT.
[2021-10-07] MEDS: dexAMETHasone sod phosphate/NS 12 MG/50 ML PIGGYBACK 200 MG IV (11:30)
[2021-10-07] MEDS: diphenhydrAMINE HCL 50 MG/ML VIAL 25 MG IVPUSH (11:30)
[2021-10-07] MEDS: Famotidine/PF 20 MG/2 ML VIAL IVPUSH (11:30)
[2021-10-07] MEDS: Acetaminophen 325 MG TABLET 650 MG PO (11:31)
[2021-10-07] MEDS: Heparin Sodium,Porcine Flush 500 UNIT/5 ML SYRINGE IVFLUSH (11:31)
[2021-10-07] MEDS: CARBOplatin 220 MG in 0.9 % Sodium Chloride 250 ML 544 MG IV (14:00)
--- NOTE | 2021-10-07 14:13 | PM.HEMONCPN ---
Medical Summary - Medical Summary Date of Service: 10/07/21 Chief complaint: Follow-up for: Breast cancer. Medical Summary: DIAGNOSIS: LEFT BREAST CANCER UPPER OUTER QUADRANT. CURRENT THERAPY: STATUS POST LUMPECTOMY ON 04/29. Pathology revealed: Invasive ductal carcinoma, high grade, 3 cm, with small satellite nodules x2 approximately 0.1 cm. DCIS nuclear grade 3 with comedonecrosis and calcifications. No lymphovascular invasion. Margins negative for invasive and in-situ ductal carcinoma, however invasive ductal carcinoma is less than 0.1 cm to the posterior margin and approximately 0.1 cm to the medial and lateral margins. Re-excision negative. ER negative/ND negative and HER2 Vonda negative. Three sentinel nodes were negative. Currently on weekly carboplatin Taxol based chemotherapy. Cycle 1 on 06/03. Cycle 5, day 15, today. (Gets treatment day 1, 8 and 15.) Interval History Interval history: Marah Rivera is a pleasant 46 year old lady, here for a follow-up visit. She is here to recieve cycle 5, day 15, of Carbo/Taxol weekly. She tells me, 1 of her teeth broke while biting into something. She has an appointment on Wednesday with the dentist. She may need to have the tooth removed. Other than that she has been doing well. She is, hanging in there. After her treatment she feels somewhat fatigued. She denies abdominal pain. She has nausea and heartburn. The Zofran does help. No fever nor chills. Appetite is decent. Weight is stable. She denies headaches. Occasional dizziness. She has had symptoms of chest pain at rest and on exertion. She gets short of breath on exertion. Denies abdominal pain. She gets occasional heartburn. No nausea vomiting. Denies bowel complaints. No gross blood in the stools. She has frequency of micturition. She gets generalized aches and pains. She has been trying to stay active. Sometimes, she cannot sleep for a couple of nights. She feels it is the Decadron that she gets. She has anxiety and depression. 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 An ultrasound was done which revealed a cyst in the ovary. She did blood work and reassured her. Previous history: She had an abnormal mammogram. This was done on ,02/28 and revealed: Left breast has new mass, posterior upper outer quadrant in area of palpable in measuring 1.7 cm. Ultrasound demonstrated: Heterogenous macro lobulated hypoechoic mass posterior upper outer quadrant measurin.8 and 1.4 time 1.7 cm. Left axillary nodes showing normal fatty hilus and normal color. 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 She had her lumpectomy done on 04/29. She tells me that her surgery went well. The incision does appear to be healing, the open area has closed up. No more drainage. She had a follow-up appointment with Dr. Dutta. 2. Cardiac issues: She has had some cardiac issues. She was seen by Dr. Morse who diagnosed diastolic dysfunction. She went to Dr. Trevino in [place] who did right heart catheterization. He mention some muscular dysfunction/autonomic dysfunction. No treatment was suggested. Clinical trial was offered that she declined. She actually had an appointment with Dr. Brewer. Casework Manager History: Menarche at 10. She still has her regular periods. Family history: Her mom was diagnosed with breast cancer at 38. She lived for 7 years. of metastatic disease. 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 She is not . She has no children. She smokes half a pack a day. She drinks very little alcohol. Review of Systems - Constitutional Reports no additional constitutional complaints, Reports lack of energy, Denies weight gain - Eyes Reports no additional eye complaints - ENT Reports no additional ear, nose, mouth, and throat complaints Comments: Her tooth broke - Cardiovascular Reports no additional cardiovascular complaints - Respiratory Reports no additional respiratory complaints - Gastrointestinal Reports no additional gastrointestinal complaints - Genitourinary Reports no additional female genitourinary complaints - Musculoskeletal Reports no additional musculoskeletal complaints - Integumentary/Breasts Skin/Breast: Reports no additional skin complaints - Neurologic Reports no additional neurologic complaints, Reports weakness - Psychiatric Reports no additional psychiatric complaints - Endocrine Reports no additional endocrine complaints - Hematologic/Lymphatic Reports no additional hematologic/lymphatic complaints - Allergic/Immunologic Reports no additional allergic/immunologic complaints [facility] Medical History: Medical History (Last Updated 07/06/21 @ 23:15 by Carlyn Enriquez MD) Diastolic dysfunction Exertional dyspnea Family history of breast cancer gene mutation in first degree relative Hx of cyst of breast Hx of lipoma Invasive ductal carcinoma of left breast Left breast mass Functional capacity: independent ambulation Patient : No Family History: Family History (Last Updated 06/26/21 @ 11:34 by Maria Isabel Garcia CMA) Mother Breast cancer, Onset Age: 38 Father CAD (coronary artery disease) Hyperlipidemia HTN (hypertension) History of cardiac defibrillator placement Pacemaker Family/Other Lymphoma Paternal Grandmother Dementia Sister Substance use disorder Mental health disorder Surgical History: Surgical History (Last Reviewed 06/09/21 @ 16:20 by Odell Dutta MD) Endometriosis History of excision of mass History of lumpectomy of left breast Social History: Social History (Last Reviewed 06/09/21 @ 16:20 by Odell Dutta MD) Living Situation History: Housing: House Alcohol History: Alcohol intake: current Alcohol History Details: Alcohol intake frequency: holiday/special occasion Tobacco History: Patient Tobacco Use Status: Current everyday Tobacco Tobacco use type: Cigarette Cigarette Packs Per Day: 0.5 Substance Use History: Use of substances other than those prescribed or required for medical reasons: No Substance Use Type: Marijuana Nutrition Assessment: Patient : No Occupation Assessmet: service: No Current occupational status: unemployed Oncology Screenings - ECOG Performance Status ECOG Performance Status: 0 Home Medications and Allergies Current Medications: Current Medications Acetaminophen (Acetaminophen 325 Mg Tablet) 650 mg PO ONCE GIDEON Stop: 10/07/21 23:59 Last Admin: 10/07/21 11:31 Dose: 650 mg Documented by: Diphenhydramine HCl (Diphenhydramine Hcl 50 Mg/Ml Vial) 25 mg IVPUSH ONCE GIDEON Stop: 10/07/21 23:59 Last Admin: 10/07/21 11:30 Dose: 25 mg Documented by: Famotidine (Famotidine/Pf 20 Mg/2 Ml Vial) 20 mg IVPUSH ONCE GIDEON Stop: 10/07/21 23:59 Last Admin: 10/07/21 11:30 Dose: 20 mg Documented by: Heparin Sodium (Porcine) (Heparin Sodium,Porcine Flush 500 Unit/5 Ml Syringe) 500 unit IVFLUSH ONCE GIDEON Stop: 10/07/21 23:59 Last Admin: 10/07/21 11:31 Dose: 500 unit Documented by: Ondansetron HCl (Zofran) 16 mg in 50 mls @ 200 mls/hr IV ONCE GIDEON Stop: 10/07/21 23:59 Last Infusion: 10/07/21 11:45 Dose: Infused Documented by: Dexamethasone Sodium Phosphate (Decadron) 12 mg in 50 mls @ 200 mls/hr IV ONCE GIDEON Stop: 10/07/21 23:59 Last Infusion: 10/07/21 11:45 Dose: Infused Documented by: Carboplatin 220 mg/ Sodium (Chloride) 272 mls @ 544 mls/hr IV ONCE GIDEON Stop: 10/07/21 23:59 Last Admin: 10/07/21 14:00 Dose: 544 mls/hr Documented by: Paclitaxel 138 mg/ Sodium (Chloride) 273 mls @ 273 mls/hr IV ONCE GIDEON Stop: 10/07/21 23:59 Last Infusion: 10/07/21 13:56 Dose: Infused Documented by: Home Medications Medication Instructions Recorded Confirmed Type metoprolol tartrate 25 mg tablet 25 mg PO TID 01/14/21 10/07/21 History nitroglycerin 0.4 mg sublingual 0.4 mg SUBLINGUAL Q5M PRN 01/14/21 10/07/21 History tablet Vitamin D (with calcium) 600 mg PO DAILY 05/06/21 10/07/21 History Allergies Allergy/AdvReac Type Severity Reaction Status Date / Time bee pollen [BEE STINGS] Allergy Severe ANAPHYLAXIS Verified 09/23/21 11:29 Penicillins Allergy Intermediate Unknown Verified 09/23/21 11:29 danazol Allergy Unknown hand Verified 09/23/21 11:29 swelling sertraline [Zoloft] AdvReac Unknown increasedi Verified 09/23/21 11:29 rritability codeine AdvReac Unknown nausea Uncoded 09/23/21 11:29 prilosec AdvReac Unknown bloating Uncoded 09/23/21 11:29 Exam Vital signs: Vital Signs Temp 98 F 10/07/21 10:18 Pulse 95 10/07/21 10:18 Resp 18 10/07/21 10:18 BP 111/67 10/07/21 10:18 Pulse Ox 99 10/07/21 10:18 Intake & Output 10/06/21 10/07/21 10/07/21 18:59 06:59 18:59 Intake Total 373 / 373 Balance 373 / 373 Intake: Intake, IV Amount 373 / 373 Ondansetron HCL/NS 16 mg In 50 50 / 50 ml @ 200 mls/hr IV ONCE GIDEON Rx# :[id number] PACLitaxeL 138 mg In 0.9 % 273 / 273 Sodium Chloride 250 ml @ 273 mls/hr IV ONCE GIDEON Rx#: [id number] dexAMETHasone sod phosphate/NS 50 / 50 12 mg In 50 ml @ 200 mls/hr IV ONCE GIDEON Rx#:[id number] Other: Weight 70.1 kg [place] Weight in Grams 72740 Weight 70.1 kg BMI result Body Mass Index 28.3 - Constitutional Present: mild distress - Routine HEENT Exam Head: Present: normocephalic Eye: Present: normal appearance ENT: Present: mucous membranes moist - Routine Neck Exam Present: full ROM - Routine Respiratory Exam Present: CTAB - Routine Cardiovascular Exam Cardiovascular: Present: RRR, S1, S2. Absent: rubs, S3, S4 - Routine Abdominal Exam Present: normal bowel sounds, nontender. Absent: diminished bowel sounds, organomegaly - Routine Rectal Exam Patient deferred: digital exam - Routine Extremities Exam Absent: tenderness - Routine Back/Spine/Pelvis Exam Back/Spine: Present: full ROM - Routine Skin Exam Present: intact, normal turgor - Routine Neurological Exam Present: alert, oriented X3 - Detailed Neurological Exam: Coma Scale Eye Opening: Spontaneous (4) - Routine Psychiatric Exam Present: normal affect Data - Labs CBC & Chem 7: 10/07/21 10:25 10/07/21 10:25 Assessment and Plan Patient Active problem list reviewed?: Yes (1) Breast cancer of upper-outer quadrant of left female breast Status: Resolved Assessment and plan: This is a pleasant 45-year-old lady with recent diagnosis of left-sided breast cancer upper outer quadrant. 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 Question is about neoadjuvant chemotherapy. Since the tumor size is small less than 2 cm., the nodes appear negative on the ultrasound. Would recommend upfront surgical resection for exact staging. She will need chemotherapy since she is triple negative. I discussed the case with Dr. Dutta, as well. She underwent a lumpectomy with sentinel node dissection. Her pathology revealed: Pathology revealed: Invasive ductal carcinoma, high grade, 3 cm, with small satellite nodules x2 approximately 0.1 cm. DCIS nuclear grade 3 with comedonecrosis and calcifications. No lymphovascular invasion. Margins negative for invasive and in-situ ductal carcinoma, however invasive ductal carcinoma is less than 0.1 cm to the posterior margin and approximately 0.1 cm to the medial and lateral margins. Re-excision negative. ER negative/ND negative and HER2 Vonda negative. Three sentinel nodes were negative. No lymphovascular invasion. Margins negative for invasive and in-situ ductal carcinoma, however invasive ductal carcinoma is less than 0.1 cm to the posterior margin and approximately 0.1 cm to the medial and lateral margins. Re-excision negative. ER negative/ND negative and HER2 Vonda negative. Three sentinel nodes were negative. She was deemed a candidate for adjuvant chemotherapy, being triple negative. Choices of chemotherapy included dose dense AC x4, followed by Taxol. However she does have a history of cardiac issues with diastolic dysfunction. In the situation I intended to avoid Adriamycin. She had an echocardiogram at [facility] few weeks prior which showed EF of 55%. Recent data suggest benefit of adjuvant carboplatin and Taxol, especially for triple negative disease. She had a Port-A-Cath placed to facilitate the chemotherapy. She got started on 06/03. So far she is doing well. She is here for cycle 5 day 15. She has tolerated the 1st 4 cycles quite well, without incident. She has 1 more cycle to go. Platelet count 261 today. She would like to stay on time if possible. PLAN: She has a dental appointment next Wednesday. I advised her to come Wednesday morning to check her labs to make sure her platelets have not dropped further, in case she needs an extraction. She will complete this cycle, and then have 1 more treatment cycle. The plan is, to continue her and to complete 6 cycles. She will subsequently be referred for post lumpectomy radiation therapy. She prefers to [facility]. An appointment will be made. She will return in a month for a follow-up. All her and her friend's questions were answered to her satisfaction. She will return in a month for a follow-up visit. Thank you, CC: Dr. Dutta. Dr. Enriquez. - Time Spent With Patient Time Spent with Patient (in minutes): 30
--- NOTE | 2021-10-07 15:25 | MHC.HEMONC ---
Pt states she cracked a tooth, and has dentist appointment on Saturday 10/13. Dr Torres aware. OK to have tooth pulled as long as platelets are <60. Scheduled for labs Wednesday morning before dentist appointment to check platelets.
[2021-10-13 09:49] LABS: Basophils Percent Auto 0.3 % (0-2); Hematocrit 28.9 % (37.0-47.0); Hemoglobin 9.9 g/dl (12.0-16.0); Imm Gran Abs Auto 0.02 X10*3/uL (0.00-0.03); Imm Gran Pct Auto 0.7 % (0.0-0.4); Lymphocytes Absolute Auto 1.3 X10*3/uL (1.2-4.9); Lymphocytes Percent Auto 42.7 % (20-40); MANUAL DIFF FLAG SCAN; Mean Corpuscular HGB Conc 34.3 g/dl (31.0-35.0); Mean Corpuscular Hemoglobin 33.2 pg (27.0-33.0); Mean Platelet Volume 10.2 fL (9.4-12.3); Monocytes Absolute Auto 0.2 X10*3/uL (0.1-1.2); Monocytes Percent Auto 6.3 % (2-11); Neutrophils Absolute Auto 1.5 x10*3/uL (2.0-8.3); Red Blood Count 2.98 X10*6/uL (4.20-5.50); Red Cell Distribution Width 17.3 % (11.0-16.0); SCAN SMEAR FLAG 1
[2021-10-13 09:53] LABS: Platelet Count 56 X10*3/uL (160-400)
--- NOTE | 2021-10-13 10:23 | MHC.HEMONC ---
Pt here for lab draw prior to tooth extraction. Platelets 59. Okay to have tooth extraction per Dr Torres providing platelets above 50. Pt called and notified.
[2021-10-13 10:26] LABS: SLIDE REVIEW VERIFIED
[2021-10-21 10:29] LABS: MANUAL DIFF FLAG NO
[2021-10-21 10:30] VITALS: BP 127/80; PULSE 95; RESP 18; TEMP 36.4; O2SAT 99; BMI 28.4
[2021-10-21 10:31] LABS: Basophils Percent Auto 0.2 % (0-2); Hematocrit 28.8 % (37.0-47.0); Hemoglobin 9.8 g/dl (12.0-16.0); Imm Gran Abs Auto 0.02 X10*3/uL (0.00-0.03); Imm Gran Pct Auto 0.5 % (0.0-0.4); Lymphocytes Absolute Auto 1.5 X10*3/uL (1.2-4.9); Lymphocytes Percent Auto 34.2 % (20-40); Mean Corpuscular Hemoglobin 33.8 pg (27.0-33.0); Mean Corpuscular Volume 99.3 fL (80.0-98.0); Mean Platelet Volume 9.8 fL (9.4-12.3); Monocytes Absolute Auto 0.7 X10*3/uL (0.1-1.2); Neutrophils Absolute Auto 2.2 x10*3/uL (2.0-8.3); Neutrophils Percent Auto 50.1 % (45-73); Platelet Count 85 X10*3/uL (160-400); Red Cell Distribution Width 17.9 % (11.0-16.0); White Blood Count 4.4 X10*3/uL (4.8-10.8)
[2021-10-21 11:38] LABS: Alanine Aminotransferase 26 U/L (0-31); Albumin Level 3.7 g/dL (3.5-5.0); Alkaline Phosphatase 65 U/L (39-117); Anion Gap 9 (12-20); Aspartate Amino Transferase 22 U/L (5-31); Bilirubin Total 0.4 mg/dL (0.0-1.0); Blood Urea Nitrogen 10 mg/dL (9-16); Calcium 8.9 mg/dL (8.4-10.2); Carbon Dioxide 27 mmol/L (22-29); Chloride 109 mmol/L (96-108); Creatinine Clr Calc Pharmacy 89.1; Estimated Glomerular Filt Rate > 60; Glucose Random 104 mg/dL (60-115); Potassium 3.8 mmol/L (3.3-5.1); Sodium 141 mmol/L (135-145); Total Protein 6.4 g/dL (6.5-8.0)
[2021-10-21] MEDS: Acetaminophen 325 MG TABLET 650 MG PO (11:57)
[2021-10-21] MEDS: Famotidine/PF 20 MG/2 ML VIAL IVPUSH (11:58)
[2021-10-21] MEDS: Heparin Sodium,Porcine Flush 500 UNIT/5 ML SYRINGE IVFLUSH (11:59)
[2021-10-21] MEDS: dexAMETHasone sod phosphate/NS 12 MG/50 ML PIGGYBACK 200 MG IV (12:01)
[2021-10-21] MEDS: diphenhydrAMINE HCL 50 MG/ML VIAL 25 MG IVPUSH (12:02)
--- NOTE | 2021-10-21 16:13 | MHC.HEMONC ---
Pt here for C6D1 Paclitaxel/Carbo. Port accessed with blood return noted-labs drawn from port-specimen to lab. Pt states she has left leg edema, occasional nausea after chemotherapy. Excited to finish chemotherapy soon. Lab results reviewed-okay to receive treatment today. Pre medicated with tylenol, benadryl, zofran, pepcid, decadron,. Paclitaxel/ Carbo given as ordered-tolerated well. Port flushed with heparin and de accessed. Follow up appointment scheduled. Discharge packet given
[2021-10-28 10:30] VITALS: BP 140/85; PULSE 123; RESP 18; TEMP 36.5; O2SAT 99; BMI 38.7
[2021-10-28 10:46] LABS: MANUAL DIFF FLAG NO
[2021-10-28 10:50] LABS: Basophils Percent Auto 0.2 % (0-2); Hematocrit 27.7 % (37.0-47.0); Hemoglobin 9.5 g/dl (12.0-16.0); Imm Gran Abs Auto 0.03 X10*3/uL (0.00-0.03); Imm Gran Pct Auto 0.6 % (0.0-0.4); Lymphocytes Absolute Auto 1.4 X10*3/uL (1.2-4.9); Lymphocytes Percent Auto 29.9 % (20-40); Mean Corpuscular HGB Conc 34.3 g/dl (31.0-35.0); Mean Corpuscular Hemoglobin 34.3 pg (27.0-33.0); Mean Platelet Volume 10.9 fL (9.4-12.3); Monocytes Absolute Auto 0.4 X10*3/uL (0.1-1.2); Monocytes Percent Auto 9.1 % (2-11); Neutrophils Absolute Auto 2.8 x10*3/uL (2.0-8.3); Neutrophils Percent Auto 60.2 % (45-73); Platelet Count 104 X10*3/uL (160-400); Red Blood Count 2.77 X10*6/uL (4.20-5.50); Red Cell Distribution Width 17.2 % (11.0-16.0); White Blood Count 4.6 X10*3/uL (4.8-10.8)
[2021-10-28 11:17] LABS: Alanine Aminotransferase 23 U/L (0-31); Alkaline Phosphatase 61 U/L (39-117); Anion Gap 12 (12-20); Aspartate Amino Transferase 18 U/L (5-31); Blood Urea Nitrogen 14 mg/dL (9-16); Calcium 8.9 mg/dL (8.4-10.2); Carbon Dioxide 24 mmol/L (22-29); Chloride 109 mmol/L (96-108); Creatinine Clr Calc Pharmacy 92.9; Estimated Glomerular Filt Rate > 60; Glucose Random 112 mg/dL (60-115); Potassium 3.7 mmol/L (3.3-5.1); Sodium 141 mmol/L (135-145); Total Protein 6.6 g/dL (6.5-8.0)
[2021-10-28 11:32] VITALS: BMI 28.0
[2021-10-28 11:40] LABS: Bilirubin Total 0.3 mg/dL (0.0-1.0)
[2021-10-28] MEDS: Acetaminophen 325 MG TABLET 650 MG PO (11:57)
[2021-10-28] MEDS: Famotidine/PF 20 MG/2 ML VIAL IVPUSH (11:59)
[2021-10-28] MEDS: diphenhydrAMINE HCL 50 MG/ML VIAL 25 MG IVPUSH (11:59)
[2021-10-28] MEDS: dexAMETHasone sod phosphate/NS 12 MG/50 ML PIGGYBACK 200 MG IV (12:00)
[2021-10-28] MEDS: Heparin Sodium,Porcine Flush 500 UNIT/5 ML SYRINGE IVFLUSH (12:00)
--- NOTE | 2021-10-28 13:29 | P.PNHO_ITS ---
Medical Summary - Medical Summary Date of Service: 10/28/21 Chief complaint: Follow-up for: Breast cancer. Medical Summary: DIAGNOSIS: LEFT BREAST CANCER UPPER OUTER QUADRANT. CURRENT THERAPY: STATUS POST LUMPECTOMY ON 04/29. Pathology revealed: Invasive ductal carcinoma, high grade, 3 cm, with small satellite nodules x2 approximately 0.1 cm. DCIS nuclear grade 3 with comedonecrosis and calcifications. No lymphovascular invasion. Margins negative for invasive and in-situ ductal carcinoma, however invasive ductal carcinoma is less than 0.1 cm to the posterior margin and approximately 0.1 cm to the medial and lateral margins. Re-excision negative. ER negative/NY negative and HER2 Vonda negative. Three sentinel nodes were negative. Currently on weekly carboplatin Taxol based chemotherapy. Cycle 1 on 06/03. Cycle 6, day 8, today. (Gets treatment day 1, 8 and 15.) Interval History Interval history: Marah Rivera is a pleasant 46 year old lady, here for a follow-up visit. She is here to recieve cycle 6, day 8, of Carbo/Taxol weekly. She had a nice quiet [place]. She spent it with her 6-month-old puppy. Other than that she has been, hanging in there. After her treatment she feels somewhat fatigued. She has nausea and heartburn. The Zofran does help. Appetite is decent. Weight is stable. No fever nor chills. She denies headaches. Occasional dizziness. She has had symptoms of chest pain at rest and on exertion. She gets short of breath on exertion. Recent echocardiogram was normal with normal LVEF. Denies abdominal pain. She gets occasional heartburn. No nausea vomiting. Denies bowel complaints. No gross blood in the stools. She has frequency of micturition. She gets generalized aches and pains. She has been trying to stay active. Sometimes, she cannot sleep for a couple of nights. She feels it is the Decadron that she gets. She has anxiety and depression. 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 An ultrasound was done which revealed a cyst in the ovary. She did blood work and reassured her. Previous history: 1. She tells me, 1 of her teeth broke while biting into something. She had seen the dentist. She may need to have the tooth removed. 2. She had an abnormal mammogram. This was done on ,02/28 and revealed: Left breast has new mass, posterior upper outer quadrant in area of palpable in measuring 1.7 cm. Ultrasound demonstrated: Heterogenous macro lobulated hypoechoic mass posterior upper outer quadrant measurin.8 and 1.4 time 1.7 cm. Left axillary nodes showing normal fatty hilus and normal color. 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 She had her lumpectomy done on 04/29. She tells me that her surgery went well. The incision does appear to be healing, the open area has closed up. No more drainage. She had a follow-up appointment with Dr. Dutta. 3. Cardiac issues: She has had some cardiac issues. She was seen by Dr. Morse who diagnosed diastolic dysfunction. She went to Dr. Trevino in [place] who did right heart catheterization. He mention some muscular dysfunction/autonomic dysfunction. No treatment was suggested. Clinical trial was offered that she declined. She actually had an appointment with Dr. Brewer. 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 She still has her regular periods. Family history: Her mom was diagnosed with breast cancer at 38. She lived for 7 years. of metastatic disease. 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 She is not . She has no children. She smokes half a pack a day. She drinks very little alcohol. Review of Systems - Constitutional Reports no additional constitutional complaints - Eyes Reports no additional eye complaints - ENT Reports no additional ear, nose, mouth, and throat complaints - Cardiovascular Reports no additional cardiovascular complaints - Respiratory Reports no additional respiratory complaints - Gastrointestinal Reports no additional gastrointestinal complaints - Genitourinary Reports no additional female genitourinary complaints - Musculoskeletal Reports no additional musculoskeletal complaints - Integumentary/Breasts Skin/Breast: Reports no additional skin complaints - Neurologic Reports no additional neurologic complaints, Reports weakness - Psychiatric Reports no additional psychiatric complaints - Endocrine Reports no additional endocrine complaints - Hematologic/Lymphatic Reports no additional hematologic/lymphatic complaints - Allergic/Immunologic Reports no additional allergic/immunologic complaints [facility] Medical History: Medical History (Last Updated 07/06/21 @ 23:15 by Carlyn Enriquez MD) Diastolic dysfunction Exertional dyspnea Family history of breast cancer gene mutation in first degree relative Hx of cyst of breast Hx of lipoma Invasive ductal carcinoma of left breast Left breast mass Functional capacity: independent ambulation Family History: Family History (Last Updated 06/26/21 @ 11:34 by Maria Isabel Garcia CMA) Mother Breast cancer, Onset Age: 38 Father CAD (coronary artery disease) Hyperlipidemia HTN (hypertension) History of cardiac defibrillator placement Pacemaker Family/Other Lymphoma Paternal Grandmother Dementia Sister Substance use disorder Mental health disorder Surgical History: Surgical History (Last Reviewed 06/09/21 @ 16:20 by Odell Dutta MD) Endometriosis History of excision of mass History of lumpectomy of left breast Social History: Social History (Last Reviewed 06/09/21 @ 16:20 by Odell Dutta MD) Living Situation History: Housing: House Alcohol History: Alcohol intake: current Alcohol History Details: Alcohol intake frequency: holiday/special occasion Tobacco History: Patient Tobacco Use Status: Current everyday Tobacco Tobacco use type: Cigarette Cigarette Packs Per Day: 0.5 Substance Use History: Use of substances other than those prescribed or required for medical reasons : No Substance Use Type: Marijuana Nutrition Assessment: Patient : No Occupation Assessmet: service: No Current occupational status: unemployed Oncology Screenings - ECOG Performance Status ECOG Performance Status: 0 Home Medications and Allergies Current Medications: Current Medications Acetaminophen (Acetaminophen 325 Mg Tablet) 650 mg PO ONCE GIDEON Stop: 10/28/21 23:59 Last Admin: 10/28/21 11:57 Dose: 650 mg Documented by: Diphenhydramine HCl (Diphenhydramine Hcl 50 Mg/Ml Vial) 25 mg IVPUSH ONCE GIDEON Stop: 10/28/21 23:59 Last Admin: 10/28/21 11:59 Dose: 25 mg Documented by: Famotidine (Famotidine/Pf 20 Mg/2 Ml Vial) 20 mg IVPUSH ONCE GIDEON Stop: 10/28/21 23:59 Last Admin: 10/28/21 11:59 Dose: 20 mg Documented by: Heparin Sodium (Porcine) (Heparin Sodium,Porcine Flush 500 Unit/5 Ml Syringe) 500 unit IVFLUSH ONCE GIDEON Stop: 10/28/21 23:59 Last Admin: 10/28/21 12:00 Dose: 500 unit Documented by: Dexamethasone Sodium Phosphate (Decadron) 12 mg in 50 mls @ 200 mls/hr IV ONCE GIDOEN Stop: 10/28/21 23:59 Last Infusion: 10/28/21 12:15 Dose: Infused Documented by: Ondansetron HCl (Zofran) 16 mg in 50 mls @ 200 mls/hr IV ONCE GIDEON Stop: 10/28/21 23:59 Last Infusion: 10/28/21 12:14 Dose: Infused Documented by: Carboplatin 230 mg/ Sodium (Chloride) 273 mls @ 546 mls/hr IV ONCE GIDEON Stop: 10/28/21 23:59 Paclitaxel 138 mg/ Sodium (Chloride) 273 mls @ 273 mls/hr IV ONCE GIDEON Stop: 10/28/21 23:59 Last Admin: 10/28/21 13:01 Dose: 273 mls/hr Documented by: Home Medications Medication Instructions Recorded Confirmed Type metoprolol tartrate 25 mg tablet 25 mg PO TID 01/14/21 10/28/21 History nitroglycerin 0.4 mg sublingual 0.4 mg SUBLINGUAL Q5M PRN 01/14/21 10/28/21 History tablet Allergies Allergy/AdvReac Type Severity Reaction Status Date / Time bee pollen [BEE STINGS] Allergy Severe ANAPHYLAXIS Verified 10/28/21 10:57 Penicillins Allergy Intermediate Unknown Verified 10/28/21 10:57 danazol Allergy Unknown hand Verified 10/28/21 10:57 swelling sertraline [Zoloft] AdvReac Unknown increasedi Verified 10/28/21 10:57 rritability codeine AdvReac Unknown nausea Uncoded 10/28/21 10:57 prilosec AdvReac Unknown bloating Uncoded 10/28/21 10:57 Exam Vital signs: Vital Signs Temp 97.7 F 10/28/21 10:30 Pulse 123 H 10/28/21 10:30 Resp 18 10/28/21 10:30 BP 140/85 H 10/28/21 10:30 Pulse Ox 99 10/28/21 10:30 Intake & Output 10/27/21 10/28/21 10/28/21 18:59 06:59 18:59 Intake Total 100 / 100 Balance 100 / 100 Intake: Intake, IV Amount 100 / 100 Ondansetron HCL/NS 16 mg In 50 50 / 50 ml @ 200 mls/hr IV ONCE GIDEON Rx# :[id number] dexAMETHasone sod phosphate/NS 50 / 50 12 mg In 50 ml @ 200 mls/hr IV ONCE GIDEON Rx#:[id number] Other: Weight 69.7 kg [place] Weight in Grams 28271 Weight 69.7 kg BMI result Body Mass Index 28.0 - Constitutional Present: mild distress - Routine HEENT Exam Head: Present: normocephalic Eye: Present: normal appearance ENT: Present: mucous membranes moist - Routine Neck Exam Present: full ROM - Routine Respiratory Exam Present: CTAB - Routine Cardiovascular Exam Cardiovascular: Present: RRR, S1, S2. Absent: rubs, S3, S4 - Routine Abdominal Exam Present: normal bowel sounds, nontender. Absent: diminished bowel sounds, organomegaly - Routine Rectal Exam Patient deferred: digital exam - Routine Extremities Exam Absent: tenderness - Routine Back/Spine/Pelvis Exam Back/Spine: Present: full ROM - Routine Skin Exam Present: intact, normal turgor - Routine Neurological Exam Present: alert, oriented X3 - Detailed Neurological Exam: Coma Scale Eye Opening: Spontaneous (4) - Routine Psychiatric Exam Present: normal affect Data - Labs CBC & Chem 7: 10/28/21 10:40 10/28/21 10:40 Assessment and Plan Patient Active problem list reviewed?: Yes (1) Breast cancer of upper-outer quadrant of left female breast Status: Resolved Assessment and plan: This is a pleasant 45-year-old lady with recent diagnosis of left-sided breast cancer upper outer quadrant. 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 Question is about neoadjuvant chemotherapy. Since the tumor size is small less than 2 cm., the nodes appear negative on t he ultrasound. Would recommend upfront surgical resection for exact staging. She will need chemotherapy since she is triple negative. I discussed the case with Dr. Dutta, as well. She underwent a lumpectomy with sentinel node dissection. Her pathology revealed: Pathology revealed: Invasive ductal carcinoma, high grade, 3 cm, with small satellite nodules x2 approximately 0.1 cm. DCIS nuclear grade 3 with comedonecrosis and calcifications. No lymphovascular invasion. Margins negative for invasive and in-situ ductal carcinoma, however invasive ductal carcinoma is less than 0.1 cm to the posterior margin and approximately 0.1 cm to the medial and lateral margins. Re-excision negative. ER negative/NY negative and HER2 Vonda negative. Three sentinel nodes were negative. No lymphovascular invasion. Margins negative for invasive and in-situ ductal carcinoma, however invasive ductal carcinoma is less than 0.1 cm to the posterior margin and approximately 0.1 cm to the medial and lateral margins. Re-excision negative. ER negative/NY negative and HER2 Vonda negative. Three sentinel nodes were negative. She was deemed a candidate for adjuvant chemotherapy, being triple negative. Choices of chemotherapy included dose dense AC x4, followed by Taxol. However she does have a history of cardiac issues with diastolic dysfunction. In the situation I intended to avoid Adriamycin. She had an echocardiogram at [facility] few weeks prior which showed EF of 55%. Recent data suggest benefit of adjuvant carboplatin and Taxol, especially for triple negative disease. She had a Port-A-Cath placed to facilitate the chemotherapy. She got started on 06/03. So far she is doing well. She is here for cycle 6 day 8. She has tolerated the 1st 5 cycles quite well, without incident. She has 1 more Taxol treatment to go. Platelet count 104 today. She is clinically doing very well. She will complete this treatment, and then have 1 more Taxol treatment to go. PLAN: The plan is, to continue her and to complete 6 cycles. She will subsequently be referred for post lumpectomy radiation therapy. She prefers to go to [facility]. An appointment has been made. She will return in a month for a follow-up. All her and her friend's questions were answered to her satisfaction. Thank you, CC: Dr. Dutta. Dr. Enriquez. - Time Spent With Patient Time Spent with Patient (in minutes): 30
--- NOTE | 2021-10-28 15:49 | MHC.HEMONC ---
Pt here for C6D8 Carbo/Paclitaxel. Pt states she had slight nausea and vomited x1 last week. States has occasional slight numbness in feet. Port accessed with blood return noted. Labs drawn from port-specimen to lab. LAB results reviewed-okay to receive treatment today. Pre medicated with zofran, benadryl, pepcid, decadron, tylenol. Paclitaxel/Carboplatin given as ordered-tolerated well. Dr Torres into see pt. Port flushed with heparin and de accessed. Follow up appointment scheduled. Discharge packet given.
[2021-11-01 09:02] LABS: CA 27.29 21 U/mL (<38)
[2021-11-04 10:20] VITALS: BP 109/74; PULSE 107; RESP 18; TEMP 37.1; O2SAT 99; BMI 27.5
[2021-11-04 10:39] LABS: MANUAL DIFF FLAG NO
[2021-11-04 10:44] LABS: Basophils Percent Auto 0.3 % (0-2); Hematocrit 27.9 % (37.0-47.0); Hemoglobin 9.2 g/dl (12.0-16.0); Imm Gran Abs Auto 0.02 X10*3/uL (0.00-0.03); Imm Gran Pct Auto 0.5 % (0.0-0.4); Lymphocytes Absolute Auto 1.3 X10*3/uL (1.2-4.9); Lymphocytes Percent Auto 33.2 % (20-40); Mean Corpuscular Hemoglobin 33.5 pg (27.0-33.0); Mean Corpuscular Volume 101.5 fL (80.0-98.0); Mean Platelet Volume 10.5 fL (9.4-12.3); Monocytes Absolute Auto 0.3 X10*3/uL (0.1-1.2); Monocytes Percent Auto 8.5 % (2-11); Neutrophils Absolute Auto 2.2 x10*3/uL (2.0-8.3); Neutrophils Percent Auto 57.5 % (45-73); Platelet Count 121 X10*3/uL (160-400); Red Blood Count 2.75 X10*6/uL (4.20-5.50); Red Cell Distribution Width 17.2 % (11.0-16.0); White Blood Count 3.8 X10*3/uL (4.8-10.8)
[2021-11-04 10:55] LABS: Alanine Aminotransferase 35 U/L (0-31); Albumin Level 3.8 g/dL (3.5-5.0); Alkaline Phosphatase 58 U/L (39-117); Anion Gap 11 (12-20); Aspartate Amino Transferase 21 U/L (5-31); Bilirubin Total 0.3 mg/dL (0.0-1.0); Blood Urea Nitrogen 8 mg/dL (9-16); Calcium 8.8 mg/dL (8.4-10.2); Carbon Dioxide 25 mmol/L (22-29); Chloride 111 mmol/L (96-108); Estimated Glomerular Filt Rate > 60; Glucose Random 110 mg/dL (60-115); Potassium 3.6 mmol/L (3.3-5.1); Sodium 143 mmol/L (135-145); Total Protein 6.4 g/dL (6.5-8.0)
[2021-11-04] MEDS: Acetaminophen 325 MG TABLET 650 MG PO (11:12)
[2021-11-04] MEDS: Famotidine/PF 20 MG/2 ML VIAL IVPUSH (11:13)
[2021-11-04] MEDS: dexAMETHasone sod phosphate/NS 12 MG/50 ML PIGGYBACK 200 MG IV (11:18)
[2021-11-04] MEDS: diphenhydrAMINE HCL 50 MG/ML VIAL 25 MG IVPUSH (11:18)
[2021-11-04] MEDS: Heparin Sodium,Porcine Flush 500 UNIT/5 ML SYRINGE IVFLUSH (11:19)
--- NOTE | 2021-11-04 15:20 | MHC.HEMONC ---
Pt here for C6D15 (last treatment) Carboplatin/Paclitaxel. Port accessed with blood return noted. Labs drawn from port-specimen to lab. Pt states she has occasional fatigue after treatment, and occasional nausea. States starting using magic mouth wash for sore tongue-states magic mouth wash helped. Lab results reviewed-okay to receive treatment today. Pre medicated with tylenol, benadryl, pepcid, zofran, decadron. Carboplatin/Paclitaxel-tolerated well. Port flushed with heparin and de accessed. Pt has Onc follow up with Dr Torres next month. Pt to start radiation at [facility]. Discharge packet given.
--- NOTE | 2021-11-06 13:46 | MHC.HEMONC ---
Nurse listened to VM on scrip line from pt, thanking this clinic for her caring treatment, also asked if Dr. Torres could please write her scrips for nicotine patches. She said she already has plenty of 21 mg patches, but needs the [address] Torres sent scrips to pt's pharmacy for 14 mg patches x 14, then 7 mg patches x 14, w/ 2 refills for the 7 mg patches Nurse called pt, informed her, and pt went on to say how grateful she was for how wonderful this entire department throughout her experience.
--- NOTE | 2021-11-11 13:42 | MHC.HEMONC ---
pt called office from [place] in patient psychic unit to report having a crisis and unable to go to RT at [facility] tomorrow. RT will have to be held until she is discharged.
--- NOTE | 2021-11-11 13:53 | MHC.HEMONC ---
[facility] notified that pt is InPt at [facility]. See earlier note.
--- NOTE | 2021-12-09 10:54 | MHC.HEMONC ---
Pt called. She is at [facility] and has been dx with Patito. She did not indicate why she was at Hospital. She is doing well and wanted ro r/s port flush and MD appt til next week. She is aware she must also r/s her appt at [facility].
--- NOTE | 2021-12-09 10:58 | HO.HEMONCSCH ---
PATIENT CALLED TO CANCEL APPT FOR PORT FLUSH AND APPT TO SEE . PATIENT SAYS SHE IS IN A HOSPITAL STILL RECOVERING FROM COVID WHICH HENCE IS THE REASON WHY SHE CAN'T COME IN . I RESCHEDULED W/ PATIENT ON THE PHONE. INFORMED NURSE ASSIGNED OF THE CHANGE .
--- NOTE | 2021-12-25 08:40 | MHC.HEMONC ---
Appointment cancelled today-pt hospitalized
[2021-12-26 11:23] VITALS: BP 110/73; PULSE 86; RESP 18; TEMP 36.3; O2SAT 99; BMI 26.6
[2021-12-26 11:51] LABS: MANUAL DIFF FLAG NO
[2021-12-26 12:03] LABS: Basophils Percent Auto 0.3 % (0-2); Hemoglobin 11.2 g/dl (12.0-16.0); Imm Gran Abs Auto 0.03 X10*3/uL (0.00-0.03); Imm Gran Pct Auto 0.4 % (0.0-0.4); Lymphocytes Absolute Auto 2.1 X10*3/uL (1.2-4.9); Lymphocytes Percent Auto 30.4 % (20-40); Mean Corpuscular HGB Conc 32.9 g/dl (31.0-35.0); Mean Corpuscular Volume 94.2 fL (80.0-98.0); Mean Platelet Volume 9.1 fL (9.4-12.3); Monocytes Absolute Auto 0.8 X10*3/uL (0.1-1.2); Monocytes Percent Auto 11.5 % (2-11); Neutrophils Absolute Auto 3.9 x10*3/uL (2.0-8.3); Neutrophils Percent Auto 57.4 % (45-73); Platelet Count 205 X10*3/uL (160-400); Red Blood Count 3.61 X10*6/uL (4.20-5.50); Red Cell Distribution Width 14.9 % (11.0-16.0); White Blood Count 6.8 X10*3/uL (4.8-10.8)
[2021-12-26 12:22] LABS: Alanine Aminotransferase 18 U/L (0-31); Alkaline Phosphatase 68 U/L (39-117); Anion Gap 10 (12-20); Aspartate Amino Transferase 14 U/L (5-31); Bilirubin Total 0.3 mg/dL (0.0-1.0); Blood Urea Nitrogen 14 mg/dL (9-16); Calcium 9.4 mg/dL (8.4-10.2); Carbon Dioxide 27 mmol/L (22-29); Chloride 104 mmol/L (96-108); Creatinine Clr Calc Pharmacy 81.8; Estimated Glomerular Filt Rate > 60; Glucose Random 91 mg/dL (60-115); Potassium 3.9 mmol/L (3.3-5.1); Sodium 137 mmol/L (135-145); Total Protein 6.5 g/dL (6.5-8.0)
--- NOTE | 2021-12-26 12:47 | MHC.HEMONC ---
Pt here for port flush and lab draw. Port accessed with blood return noted. Labs drawn from port-specimen to lab. Port flushed with heparin. Follow up appointment scheduled. Discharge packet given. Pt states she feels well today. States she suffered a heart attack weeks ago and was hospitalized. States she never went to radiation therapy. States she is requesting a double mastectomy from her provider. Pt scheduled to see Dr Torres on 01/01/22
[2021-12-29 10:32] LABS: CA 27.29 17 U/mL (<38)
--- NOTE | 2022-01-02 09:13 | HO.HEMONCSCH ---
Unable to contact patient regarding no show apt. N/S letter mailed
--- NOTE | 2022-02-06 14:05 | MHC.HEMONC ---
Pt here for port flush. Port accessed with blood return noted. Port flushed with heparin and de accessed. Next appointment scheduled for 6 weeks.
--- NOTE | 2022-02-11 15:15 | P.PNHO_ITS ---
Medical Summary - Medical Summary Date of Service: 02/11/22 Chief complaint: Follow-up for: Breast cancer. Medical Summary: DIAGNOSIS: LEFT BREAST CANCER UPPER OUTER QUADRANT. CURRENT THERAPY: STATUS POST LUMPECTOMY ON 04/29. Pathology revealed: Invasive ductal carcinoma, high grade, 3 cm, with small satellite nodules x2 approximately 0.1 cm. DCIS nuclear grade 3 with comedonecrosis and calcifications. No lymphovascular invasion. Margins negative for invasive and in-situ ductal carcinoma, however invasive ductal carcinoma is less than 0.1 cm to the posterior margin and approximately 0.1 cm to the medial and lateral margins. Re-excision negative. ER negative/UT negative and HER2 Vonda negative. Three sentinel nodes were negative. Recieved weekly carboplatin Taxol based chemotherapy. Cycle 1 on 06/03. Completed Cycle 6, day 15, on November 04. Interval History Interval history: Marah Rivera is a pleasant 46 year old lady, here for a follow-up visit. She completed cycle 6, day 15, of Carbo/Taxol weekly on 10/27. She is here after a long hiatus. She had some social/mental issues. She was seen in the emergency room on 11/10: Narrative: This is a 46-year-old female was brought in by ambulance. The patient was in her car at [facility] and apparentlywas acting bizarrely therefore personnel at [facility] called the ambulance. Patient herself is not forthcoming with regard to history. She is lying on her side with her hand over her mouth and for his speech is difficult to understand due to it being muffled but her hand. Patient states that her her family has been out to get her. She mentioned something about crisis evaluation. She denies alcohol or drug use. She said she feels that she is very hot. She notes she is being treated for breast cancer. She states she has had low platelets in the past. Patient also notes that she is DNR ?for any number of reasons? The patient appears to be manic, she is shouting at people that walk by in her in the emergency department, she is making bizarre statements such as she is a DNR but she does not have the paperwork and she does not care and wants to . I suspect that the patient has either bipolar disorder schizophrenia and is not taking her medications therefore she is a danger to herself and I am placing her on a Section 12. The patient will be kept in the emergency department until she can be evaluated by our crisis team. The patient refused to let me give her physical exam. At the end of my shift, the patient's care was turned over to my colleague, Dr. Soto. 01/15, she was seen by her primary care doctor Mina: She has history bipolar disorder, recently discharged from [facility] 01/19/2022,admitted for acute john with psychosis. She has history invasive ductal ca of left breast, and diagnosed to have diastolic dysfunction. She states that she is currently being seen by Dr. Trevino at [facility] for her cardiac follow-up, and will be transferred to [facility] for a double mastectomy. Patient states that she needs to be seen by psychiatrist. She was seen and evaluated by our mental health specialist, Rachael, who reviewed her discharge from recent psychiatric admission, and she was reminded that she is already has seen by [facility] a psychiatrist at [place] and has a follow-up appointment. Patient was given the number to contact her psychiatrist to schedule an appointment. She states that she has been feeling well at present time with no complaints of any chest pain, no suicidal ideations. She is trying to apply for disability, has been denied 4 times. Other than that she has been, hanging in there. No fever nor chills. She denies headaches. Occasional dizziness. She has had symptoms of chest pain at rest and on exertion. She gets short of breath on exertion. Recent echocardiogram was normal with normal LVEF. Denies abdominal pain. She gets occasional heartburn. No nausea vomiting. Denies bowel complaints. No gross blood in the stools. Appetite is decent. Weight is stable. She has frequency of micturition. She gets generalized aches and pains. She has been trying to stay active. She has anxiety and depression. She saw her print operator doctor, Dimitris. An ultrasound was done which revealed a cyst in the ovary. She did blood work and reassured her. Previous history: 1. She tells me, 1 of her teeth broke while biting into something. She had seen the dentist. She may need to have the tooth removed. 2. She had an abnormal mammogram. This was done on ,02/28 and revealed: Left breast has new mass, posterior upper outer quadrant in area of palpable in measuring 1.7 cm. Ultrasound demonstrated: Heterogenous macro lobulated hypoechoic mass posterior upper outer quadrant measurin.8 and 1.4 time 1.7 cm. Left axillary nodes showing normal fatty hilus and normal color. 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 She had her lumpectomy done on 04/29. She tells me that her surgery went well. The incision does appear to be healing, the open area has closed up. No more drainage. She had a follow-up appointment with Dr. Dutta. 3. Cardiac issues: She has had some cardiac issues. She was seen by Dr. Morse who diagnosed diastolic dysfunction. She went to Dr. Trevino in [place] who did right heart catheterization. He mention some muscular dysfunction/autonomic dysfunction. No treatment was suggested. Clinical trial was offered that she declined. She actually had an appointment with Dr. Brewer. Bed Placement Coordinator History: Menarche at 10. She still has her regular periods. Family history: Her mom was diagnosed with breast cancer at 38. She lived for 7 years. of metastatic disease. 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 She is not . She has no children. She smokes half a pack a day. She drinks very little alcohol. Review of Systems - Constitutional Reports system reviewed and no additional complaints, except as documented - Eyes Reports system reviewed and no additional complaints, except as documented - ENT Reports system reviewed and no additional complaints, except as documented - Cardiovascular Reports system reviewed and no additional complaints, except as documented - Respiratory Reports no additional respiratory complaints - Gastrointestinal Reports system reviewed and no additional complaints, except as documented - Genitourinary Reports no additional female genitourinary complaints - Musculoskeletal Reports system reviewed and no additional complaints, except as documented - Integumentary/Breasts Skin/Breast: Reports no additional skin complaints - Neurologic Reports system reviewed and no additional complaints, except as documented, Reports weakness - Psychiatric Reports system reviewed and no additional complaints, except as documented - Endocrine Reports no additional endocrine complaints - Hematologic/Lymphatic Reports system reviewed and no additional complaints, except as documented - Allergic/Immunologic Reports system reviewed and no additional complaints, except as documented [facility] Medical History: Medical History (Last Reviewed 02/11/22 @ 15:53 by Selene Cueva CMA) Diastolic dysfunction Exertional dyspnea Family history of breast cancer gene mutation in first degree relative Hx of cyst of breast Hx of lipoma Invasive ductal carcinoma of left breast Functional capacity: independent ambulation Patient : No Family History: Family History (Last Reviewed 02/11/22 @ 15:53 by Selene Cueva CMA) Mother Breast cancer, Onset Age: 38 Father CAD (coronary artery disease) Hyperlipidemia HTN (hypertension) History of cardiac defibrillator placement Pacemaker Family/Other Lymphoma Paternal Grandmother Dementia Sister Substance use disorder Mental health disorder Surgical History: Surgical History (Last Reviewed 02/11/22 @ 15:53 by Selene Cueva CMA) Endometriosis History of excision of mass History of lumpectomy of left breast Social History: Social History (Last Updated 02/11/22 @ 15:54 by Selene Cueva [facility]) Living Situation History: Household Members: Family Housing: House Are you a primary family day care worker to a significant other at home: No Do you presently have visiting nurse or other home services: No Alcohol History Details: 1. How often do you have a drink containing alcohol?: b. Monthly or less 2. How many drinks containing alcohol do you have on a typical day when you are drinking?: a. 1 or 2 Tobacco History: Patient Tobacco Use Status: Current everyday Tobacco Tobacco use type: Cigarette Cigarette Packs Per Day: 0.5 Substance Use History: Use of substances other than those prescribed or required for medical reasons : No Substance Use Type: Marijuana Domestic Abuse History: Have you been hit, kicked, punched, or otherwise hurt by someone within the past year? If so, by whom?: No Homicidal Assessment: Do you have thoughts of harming others: None Do you have a plan to hurt others: No Plan Do you have the means to hurt others: No Nutrition Assessment: Recently lost weight without trying: No Patient : No Occupation Assessmet: service: No Current occupational status: unemployed Oncology Screenings - ECOG Performance Status ECOG Performance Status: 0 Home Medications and Allergies Home Medications Medication Instructions Recorded Confirmed Type metoprolol tartrate 25 mg tablet 25 mg PO BID 01/14/21 02/11/22 History nitroglycerin 0.4 mg sublingual 0.4 mg SUBLINGUAL Q5M PRN 01/14/21 02/11/22 History tablet aripiprazole 10 mg tablet (Abilify) 10 mg PO DAILY 01/16/22 02/11/22 History lamotrigine 25 mg tablet (Lamictal) 50 mg PO DAILY 01/16/22 02/11/22 History Allergies Allergy/AdvReac Type Severity Reaction Status Date / Time bee pollen [BEE STINGS] Allergy Severe ANAPHYLAXIS Verified 02/11/22 15:55 Penicillins Allergy Intermediate Unknown Verified 02/11/22 15:55 danazol Allergy Unknown hand Verified 02/11/22 15:55 swelling sertraline [Zoloft] AdvReac Unknown increasedi Verified 02/11/22 15:55 rritability codeine AdvReac Unknown nausea Uncoded 02/11/22 15:55 prilosec AdvReac Unknown bloating Uncoded 02/11/22 15:55 Exam Vital signs: Vital Signs Temp 97.3 F 12/26/21 11:23 Pulse 86 12/26/21 11:23 Resp 18 12/26/21 11:23 BP 110/73 12/26/21 11:23 Pulse Ox 99 12/26/21 11:23 Weight 66.1 kg BMI result Body Mass Index 26.6 - Constitutional Present: mild distress - Routine HEENT Exam Head: Present: normocephalic Eye: Present: normal appearance ENT: Present: mucous membranes moist - Routine Neck Exam Present: full ROM - Routine Respiratory Exam Present: CTAB - Routine Cardiovascular Exam Cardiovascular: Present: RRR, S1, S2. Absent: rubs, S3, S4 - Routine Abdominal Exam Present: normal bowel sounds, nontender. Absent: diminished bowel sounds, organomegaly - Routine Rectal Exam Patient deferred: digital exam - Routine Extremities Exam Absent: tenderness - Routine Back/Spine/Pelvis Exam Back/Spine: Present: full ROM - Routine Skin Exam Present: intact, normal turgor - Routine Neurological Exam Present: alert, oriented X3 - Detailed Neurological Exam: Coma Scale Eye Opening: Spontaneous (4) - Routine Psychiatric Exam Present: normal affect Data - Labs CBC & Chem 7: 02/11/22 15:31 02/11/22 15:31 Assessment and Plan Patient Active problem list reviewed?: Yes (1) Breast cancer of upper-outer quadrant of left female breast Status: Resolved Assessment and plan: This is a pleasant 45-year-old lady with recent diagnosis of left-sided breast cancer upper outer quadrant. 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 Question is about neoadjuvant chemotherapy. Since the tumor size is small less than 2 cm., the nodes appear negative on the ultrasound. Would recommend upfront surgical resection for exact staging. She will need chemotherapy since she is triple negative. I discussed the case with Dr. Dutta, as well. She underwent a lumpectomy with sentinel node dissection. Her pathology revealed: Pathology revealed: Invasive ductal carcinoma, high grade, 3 cm, with small satellite nodules x2 approximately 0.1 cm. DCIS nuclear grade 3 with comedonecrosis and calcifications. No lymphovascular invasion. Margins negative for invasive and in-situ ductal carcinoma, however invasive ductal carcinoma is less than 0.1 cm to the posterior margin and approximately 0.1 cm to the medial and lateral margins. Re-excision negative. ER negative/UT negative and HER2 Vonda negative. Three sentinel nodes were negative. No lymphovascular invasion. Margins negative for invasive and in-situ ductal carcinoma, however invasive ductal carcinoma is less than 0.1 cm to the posterior margin and approximately 0.1 cm to the medial and lateral margins. Re-excision negative. ER negative/UT negative and HER2 Vonda negative. Three sentinel nodes were negative. She was deemed a candidate for adjuvant chemotherapy, being triple negative. Choices of chemotherapy included dose dense AC x4, followed by Taxol. However she does have a history of cardiac issues with diastolic dysfunction. In the situation I intended to avoid Adriamycin. She had an echocardiogram at [facility] few weeks prior which showed EF of 55%. Recent data suggest benefit of adjuvant carboplatin and Taxol, especially for triple negative disease. She had a Port-A-Cath placed to facilitate the chemotherapy. She got started on 06/03/21. She completed 6 cycles October,, without incident. Subsequently it appears that she had some mental breakdown. There is some history of bipolar disorder. She was inpatient at [facility] for a couple weeks. In November she developed COVID. He was at [facility] then transferred to [facility] for another couple weeks for psychiatric admission. It appears now that she is clinically stable. She has an appointment with customer experience consultant in [place] on February 25. She mention that she was considering a double mastectomy. I advised her to just get post lumpectomy radiation. She is concerned about dermatological toxicity related to radiation. She can at least meet with the radiation therapist and have her questions answered. PLAN: She has been referred for post lumpectomy radiation therapy. She prefers to go to [facility]. I set up an appointment for March 05. She will return in a couple of months for a follow-up. Meanwhile I have sent a prescription for nicotine patch. All her questions were answered to her satisfaction. Thank you, CC: Dr. Dutta. Dr. Enriquez. - Time Spent With Patient Time Spent with Patient (in minutes): 30
[2022-02-11 15:33] LABS: MANUAL DIFF FLAG NO
[2022-02-11 15:36] LABS: Basophils Percent Auto 0.3 % (0-2); Eosinophils Percent Auto 0.2 % (0-4); Imm Gran Abs Auto 0.03 X10*3/uL (0.00-0.03); Imm Gran Pct Auto 0.5 % (0.0-0.4); Lymphocytes Absolute Auto 2.5 X10*3/uL (1.2-4.9); Lymphocytes Percent Auto 37.2 % (20-40); Mean Corpuscular HGB Conc 33.3 g/dl (31.0-35.0); Mean Corpuscular Hemoglobin 29.2 pg (27.0-33.0); Mean Corpuscular Volume 87.6 fL (80.0-98.0); Mean Platelet Volume 9.4 fL (9.4-12.3); Monocytes Absolute Auto 0.6 X10*3/uL (0.1-1.2); Monocytes Percent Auto 8.3 % (2-11); Neutrophils Absolute Auto 3.6 x10*3/uL (2.0-8.3); Neutrophils Percent Auto 53.5 % (45-73); Platelet Count 166 X10*3/uL (160-400); Red Blood Count 4.45 X10*6/uL (4.20-5.50); Red Cell Distribution Width 13.3 % (11.0-16.0); White Blood Count 6.7 X10*3/uL (4.8-10.8)
[2022-02-11 15:53] LABS: Alanine Aminotransferase 23 U/L (0-31); Alkaline Phosphatase 75 U/L (39-117); Anion Gap 13 (12-20); Aspartate Amino Transferase 19 U/L (5-31); Bilirubin Total < 0.2 mg/dL (0.0-1.0); Blood Urea Nitrogen 14 mg/dL (9-16); Calcium 9.1 mg/dL (8.4-10.2); Carbon Dioxide 22 mmol/L (22-29); Chloride 107 mmol/L (96-108); Creatinine Clr Calc Pharmacy 80.7; Estimated Glomerular Filt Rate > 60; Glucose Random 116 mg/dL (60-115); Sodium 138 mmol/L (135-145); Total Protein 6.6 g/dL (6.5-8.0)
[2022-02-11 15:56] VITALS: BP 110/61; PULSE 70; RESP 14; TEMP 36.4; O2SAT 98; BMI 26.5
[2022-02-11 16:11] LABS: Vitamin D 25-OH Total 29.4 ng/mL (>30)
--- NOTE | 2022-02-11 16:17 | MHC.HEMONCMA ---
Pt was in for follow up. Clinical summary reviewed and updated, VSS. Labs were drawn. Pt to return in 3 months.
[2022-02-13 08:50] LABS: CA 27.29 16 U/mL (<38)
--- NOTE | 2022-03-02 11:46 | MHC.HEMONCSW ---
LATE ENTRY...MET WITH PATIENT WHO WAS ALERT, GUARDED WHEN DISCUSSING RECENT MENTAL HEALTH INPATIENT TREATMENTS. ALLOWED HER TO TALK, RESPONDED WITH UNCONDITIONAL POSITIVE REGARD. DISCUSSED BENEFITS OF JOURNALING. JOURNAL GIVEN AND IS STRONGLY ENCOURAGED TO DO THIS. SHE IS S/P LUMPECTOMY AND CHEMOTHERAPY. PLAN; REFERRED TO [facility].
--- NOTE | 2022-03-20 14:43 | MHC.HEMONC ---
No show for scheduled port flush. Called to reschedule appt however no answer and unable to leave voicemail.
--- NOTE | 2022-03-20 16:19 | HE.ONCSEC ---
CALLED PT DUE TO N/S . PATIENT APOLOGIZED FOR NOT COMING , SHE STATES HER PHONE WAS NOT IN SERVICE I RESCHEDULED W/ PT ON THE PHONE .
--- NOTE | 2022-03-24 15:05 | MHC.HEMONC ---
Pt here for port flush. Port accessed with no blood return-flushes easily. Flushed with heparin and de accessed. Discharge packet given with next appointment scheduled.
--- NOTE | 2022-05-08 12:02 | HE.ONCSEC ---
CALLED PATIENT FOR ROUTINE REMINDER CALL . PATIENT'S PHONE KEPT RINGING AND NEVER WENT TO VOICEMAIL . I TRIED CALLING PATIENT'S FATHER AND HIS VOICEMAIL BOX IS FULL ( UNABLE TO LEAVE VOICEMAIL TO PT OR GET AHOLD OF HER FATHER )
--- NOTE | 2022-05-21 16:00 | MHC.HEMONC ---
Pt here for port flush. Port accessed with no blood return noted. Port flushes easily with 0.9% NS, pt has history of fibrin sheath. Port flushed with heparin and de accessed. Next appointment scheduled. Calendar given
[2022-06-22 10:37] VITALS: BP 101/62; PULSE 80; RESP 14; TEMP 36.4; O2SAT 97; BMI 26.2
--- NOTE | 2022-06-22 10:48 | PM.HEMONCPN ---
Medical Summary - Medical Summary Date of Service: 06/22/22 Chief complaint: FOLLOW-UP FOR: TRIPLE NEGATIVE BREAST CANCER. Medical Summary: DIAGNOSIS: LEFT BREAST CANCER UPPER OUTER QUADRANT. CURRENT THERAPY: STATUS POST LUMPECTOMY ON 04/29. Pathology revealed: Invasive ductal carcinoma, high grade, 3 cm, with small satellite nodules x2 approximately 0.1 cm. DCIS nuclear grade 3 with comedonecrosis and calcifications. No lymphovascular invasion. Margins negative for invasive and in-situ ductal carcinoma, however invasive ductal carcinoma is less than 0.1 cm to the posterior margin and approximately 0.1 cm to the medial and lateral margins. Re-excision negative. ER negative/TX negative and HER2 Vonda negative. Three sentinel nodes were negative. Recieved weekly carboplatin Taxol based chemotherapy. Cycle 1 on 06/03. Completed Cycle 6, day 15, on November 04. Interval History Interval history: Marah Rivera is a pleasant 46 year old lady, here for a follow-up visit. She tells me she has been, hanging in there. Nothing really new. No fever nor chills. She denies headaches. Occasional dizziness. She has had symptoms of chest pain at rest and on exertion. She gets short of breath on exertion. Recent echocardiogram was normal with normal LVEF. Denies abdominal pain. She gets occasional heartburn. No nausea vomiting. Denies bowel complaints. No gross blood in the stools. Appetite is decent. Weight is stable. She has frequency of micturition. She gets generalized aches and pains. She has been trying to stay active. She has anxiety and depression. 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 An ultrasound was done which revealed a cyst in the ovary. She did blood work and reassured her. Interim history: She completed cycle 6, day 15, of Carbo/Taxol weekly on 10/27. She is here after a long hiatus. She had some social/mental issues. She was seen in the emergency room on 11/10: Narrative: This is a 46-year-old female was brought in by ambulance. The patient was in her car at [facility] and apparentlywas acting bizarrely therefore personnel at [facility] called the ambulance. Patient herself is not forthcoming with regard to history. She is lying on her side with her hand over her mouth and for his speech is difficult to understand due to it being muffled but her hand. Patient states that her her family has been out to get her. She mentioned something about crisis evaluation. She denies alcohol or drug use. She said she feels that she is very hot. She notes she is being treated for breast cancer. She states she has had low platelets in the past. Patient also notes that she is DNR ?for any number of reasons? The patient appears to be manic, she is shouting at people that walk by in her in the emergency department, she is making bizarre statements such as she is a DNR but she does not have the paperwork and she does not care and wants to . I suspect that the patient has either bipolar disorder schizophrenia and is not taking her medications therefore she is a danger to herself and I am placing her on a Section 12. The patient will be kept in the emergency department until she can be evaluated by our crisis team. The patient refused to let me give her physical exam. At the end of my shift, the patient's care was turned over to my colleague, Dr. Soto. 01/15, she was seen by her primary care doctor Mina: She has history bipolar disorder, recently discharged from [facility] 01/19/2022,admitted for acute john with psychosis. She has history invasive ductal ca of left breast, and diagnosed to have diastolic dysfunction. She states that she is currently being seen by Dr. Trevino at [facility] for her cardiac follow-up, and will be transferred to [facility] for a double mastectomy. Patient states that she needs to be seen by psychiatrist. She was seen and evaluated by our mental health specialist, Rachael, who reviewed her discharge from recent psychiatric admission, and she was reminded that she is already has seen by [facility] a psychiatrist at [place] and has a follow-up appointment. Patient was given the number to contact her psychiatrist to schedule an appointment. She states that she has been feeling well at present time with no complaints of any chest pain, no suicidal ideations. She is trying to apply for disability, has been denied 4 times. Previous history: 1. She tells me, 1 of her teeth broke while biting into something. She had seen the dentist. She may need to have the tooth removed. 2. She had an abnormal mammogram. This was done on ,02/28 and revealed: Left breast has new mass, posterior upper outer quadrant in area of palpable in measuring 1.7 cm. Ultrasound demonstrated: Heterogenous macro lobulated hypoechoic mass posterior upper outer quadrant measurin.8 and 1.4 time 1.7 cm. Left axillary nodes showing normal fatty hilus and normal color. 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 She had her lumpectomy done on 04/29. She tells me that her surgery went well. The incision does appear to be healing, the open area has closed up. No more drainage. She had a follow-up appointment with Dr. Dutta. 3. Cardiac issues: She has had some cardiac issues. She was seen by Dr. Morse who diagnosed diastolic dysfunction. She went to Dr. Trevino in [place] who did right heart catheterization. He mention some muscular dysfunction/autonomic dysfunction. No treatment was suggested. Clinical trial was offered that she declined. She actually had an appointment with Dr. Brewer. Tooth Cutter Pinion History: Menarche at 10. She still has her regular periods. Family history: Her mom was diagnosed with breast cancer at 38. She lived for 7 years. of metastatic disease. 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 She is not . She has no children. She smokes half a pack a day. She drinks very little alcohol. Review of Systems - Constitutional Reports no additional constitutional complaints, Denies excessive sweating, Denies fatigue, Denies fever(s), Denies night sweats, Denies poor appetite - Eyes Reports no additional eye complaints - ENT Reports no additional ear, nose, mouth, and throat complaints - Cardiovascular Reports no additional cardiovascular complaints - Respiratory Reports no additional respiratory complaints - Gastrointestinal Reports no additional gastrointestinal complaints - Genitourinary Reports no additional female genitourinary complaints - Musculoskeletal Reports no additional musculoskeletal complaints - Integumentary/Breasts Skin/Breast: Reports no additional skin complaints - Neurologic Reports no additional neurologic complaints, Reports weakness - Psychiatric Reports no additional psychiatric complaints - Endocrine Reports no additional endocrine complaints - Hematologic/Lymphatic Reports no additional hematologic/lymphatic complaints - Allergic/Immunologic Reports no additional allergic/immunologic complaints [facility] Medical History: Medical History (Last Reviewed 06/22/22 @ 10:41 by Selene Cueva CMA) Diastolic dysfunction Exertional dyspnea Family history of breast cancer gene mutation in first degree relative Hx of cyst of breast Hx of lipoma Invasive ductal carcinoma of left breast Functional capacity: independent ambulation Patient : No Family History: Family History (Last Reviewed 06/22/22 @ 10:41 by Selene Cueva CMA) Mother Breast cancer, Onset Age: 38 Father CAD (coronary artery disease) Hyperlipidemia HTN (hypertension) History of cardiac defibrillator placement Pacemaker Family/Other Lymphoma Paternal Grandmother Dementia Sister Substance use disorder Mental health disorder Surgical History: Surgical History (Last Reviewed 06/22/22 @ 10:41 by Selene Cueva CMA) Endometriosis History of excision of mass History of lumpectomy of left breast Social History: Social History (Last Updated 06/22/22 @ 10:42 by Selene Cueva CMA) Living Situation History: Household Members: Family Housing: House Are you a primary healthcare insurance sales agent to a significant other at home: No Do you presently have visiting nurse or other home services: No Alcohol History Details: 1. How often do you have a drink containing alcohol?: b. Monthly or less 2. How many drinks containing alcohol do you have on a typical day when you are drinking?: a. 1 or 2 Tobacco History: Patient Tobacco Use Status: Current everyday Tobacco Tobacco use type: Cigarette Cigarette Packs Per Day: 0.5 Substance Use History: Use of substances other than those prescribed or required for medical reasons: No Substance Use Type: Marijuana Domestic Abuse History: Have you been hit, kicked, punched, or otherwise hurt by someone within the past year? If so, by whom?: No Do you feel safe in your current relationship?: Yes Homicidal Assessment: Do you have thoughts of harming others: None Do you have a plan to hurt others: No Plan Do you have the means to hurt others: No Nutrition Assessment: Recently lost weight without trying: No Eating poorly because of decreased appetite: No Patient : No Occupation Assessmet: service: No Current occupational status: unemployed Oncology Screenings - ECOG Performance Status ECOG Performance Status: 0 Home Medications and Allergies Home Medications Medication Instructions Recorded Confirmed Type metoprolol tartrate 25 mg tablet 25 mg PO BID 01/14/21 06/22/22 History nitroglycerin 0.4 mg sublingual 0.4 mg sublingual Q5M PRN Chest 01/14/21 06/22/22 History tablet Pain aripiprazole 10 mg tablet (Abilify) 10 mg PO DAILY psychosis 01/16/22 06/22/22 History Allergies Allergy/AdvReac Type Severity Reaction Status Date / Time bee pollen [BEE STINGS] Allergy Severe ANAPHYLAXIS Verified 06/22/22 10:43 Penicillins Allergy Intermediate Unknown Verified 06/22/22 10:43 danazol Allergy Unknown hand Verified 06/22/22 10:43 swelling sertraline [Zoloft] AdvReac Unknown increasedi Verified 06/22/22 10:43 rritability codeine AdvReac Unknown nausea Uncoded 06/22/22 10:43 prilosec AdvReac Unknown bloating Uncoded 06/22/22 10:43 Exam Vital signs: Vital Signs Temp 97.6 F 06/22/22 10:37 Pulse 80 06/22/22 10:37 Resp 14 06/22/22 10:37 BP 101/62 06/22/22 10:37 Pulse Ox 97 06/22/22 10:37 O2 Del Method 06/22/22 10:37 Intake & Output 06/21/22 06/22/22 06/22/22 18:59 06:59 18:59 Other: Weight 65.2 kg [place] Weight in Grams [id number] Weight 65.2 kg BMI result Body Mass Index 26.2 - Constitutional Present: mild distress - Routine HEENT Exam Head: Present: normocephalic Eye: Present: normal appearance ENT: Present: mucous membranes moist - Routine Neck Exam Present: full ROM - Routine Respiratory Exam Present: CTAB - Routine Cardiovascular Exam Cardiovascular: Present: RRR, S1, S2. Absent: rubs, S3, S4 - Routine Abdominal Exam Present: normal bowel sounds, nontender. Absent: diminished bowel sounds, organomegaly - Routine Rectal Exam Patient deferred: digital exam - Routine Extremities Exam Absent: tenderness - Routine Back/Spine/Pelvis Exam Back/Spine: Present: full ROM - Routine Skin Exam Present: intact, normal turgor - Routine Neurological Exam Present: alert, oriented X3 - Detailed Neurological Exam: Coma Scale Eye Opening: Spontaneous (4) - Routine Psychiatric Exam Present: normal affect Data - Labs CBC & Chem 7: 06/22/22 11:20 06/22/22 11:20 Assessment and Plan Patient Active problem list reviewed?: Yes (1) Breast cancer of upper-outer quadrant of left female breast Status: Resolved Assessment and plan: This is a pleasant 45-year-old lady with recent diagnosis of left-sided breast cancer upper outer quadrant. 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 Question is about neoadjuvant chemotherapy. Since the tumor size is small less than 2 cm., the nodes appear negative on the ultrasound. Would recommend upfront surgical resection for exact staging. She will need chemotherapy since she is triple negative. I discussed the case with Dr. Dutta, as well. She underwent a lumpectomy with sentinel node dissection. Her pathology revealed: Pathology revealed: Invasive ductal carcinoma, high grade, 3 cm, with small satellite nodules x2 approximately 0.1 cm. DCIS nuclear grade 3 with comedonecrosis and calcifications. No lymphovascular invasion. Margins negative for invasive and in-situ ductal carcinoma, however invasive ductal carcinoma is less than 0.1 cm to the posterior margin and approximately 0.1 cm to the medial and lateral margins. Re-excision negative. ER negative/TX negative and HER2 Vonda negative. Three sentinel nodes were negative. No lymphovascular invasion. Margins negative for invasive and in-situ ductal carcinoma, however invasive ductal carcinoma is less than 0.1 cm to the posterior margin and approximately 0.1 cm to the medial and lateral margins. Re-excision negative. ER negative/TX negative and HER2 Vonda negative. Three sentinel nodes were negative. She was deemed a candidate for adjuvant chemotherapy, being triple negative. Choices of chemotherapy included dose dense AC x4, followed by Taxol. However she does have a history of cardiac issues with diastolic dysfunction. In the situation I intended to avoid Adriamycin. She had an echocardiogram at [facility] few weeks prior which showed EF of 55%. Recent data suggest benefit of adjuvant carboplatin and Taxol, especially for triple negative disease. She had a Port-A-Cath placed to facilitate the chemotherapy. She got started on 06/03/21. She completed 6 cycles October,, without incident. Subsequently it appears that she had some mental breakdown. There is some history of bipolar disorder. She was inpatient at [facility] for a couple weeks. In November she developed COVID. He was at [facility] then transferred to [facility] for another couple weeks for psychiatric admission. It appears now that she is clinically stable. She has an appointment with hvac installer in [place] on February 25. She mention that she was considering a double mastectomy. I advised her to just get post lumpectomy radiation. She is concerned about dermatological toxicity related to radiation. She can at least meet with the radiation therapist and have her questions answered. She was referred for post lumpectomy radiation therapy. She preferred to go to [facility]. She just completed the radiation a couple of months ago. She is clinically doing very well. PLAN: Will wait 3 months and then repeat her mammogram. After that as long as everything is good she can have the Port-A-Cath removed. She will return in 3 months for a follow-up. All her questions were answered to her satisfaction. Thank you, CC: Dr. Dutta. Dr. Enriquez. - Time Spent With Patient Time Spent with Patient (in minutes): 28
[2022-06-22 11:38] LABS: MANUAL DIFF FLAG NO
[2022-06-22 11:46] LABS: Basophils Percent Auto 0.4 % (0-2); Eosinophils Absolute Auto 0.2 X10*3/uL (0.0-0.4); Eosinophils Percent Auto 2.7 % (0-4); Hematocrit 41.5 % (37.0-47.0); Imm Gran Abs Auto 0.04 X10*3/uL (0.00-0.03); Imm Gran Pct Auto 0.6 % (0.0-0.4); Lymphocytes Absolute Auto 1.6 X10*3/uL (1.2-4.9); Lymphocytes Percent Auto 22.4 % (20-40); Mean Corpuscular HGB Conc 33.7 g/dl (31.0-35.0); Mean Corpuscular Hemoglobin 28.6 pg (27.0-33.0); Mean Corpuscular Volume 84.9 fL (80.0-98.0); Mean Platelet Volume 9.1 fL (9.4-12.3); Monocytes Absolute Auto 0.5 X10*3/uL (0.1-1.2); Monocytes Percent Auto 7.4 % (2-11); Neutrophils Absolute Auto 4.8 x10*3/uL (2.0-8.3); Neutrophils Percent Auto 66.5 % (45-73); Platelet Count 177 X10*3/uL (160-400); Red Blood Count 4.89 X10*6/uL (4.20-5.50); White Blood Count 7.2 X10*3/uL (4.8-10.8)
[2022-06-22 11:57] LABS: Alanine Aminotransferase 13 U/L (0-31); Alkaline Phosphatase 91 U/L (39-117); Anion Gap 13 (12-20); Aspartate Amino Transferase 16 U/L (5-31); Bilirubin Total 0.4 mg/dL (0.0-1.0); Blood Urea Nitrogen 11 mg/dL (9-16); Calcium 9.1 mg/dL (8.4-10.2); Carbon Dioxide 24 mmol/L (22-29); Chloride 107 mmol/L (96-108); Estimated Glomerular Filt Rate > 60; Glucose Random 96 mg/dL (60-115); Potassium 4.2 mmol/L (3.3-5.1); Sodium 140 mmol/L (135-145); Total Protein 6.6 g/dL (6.5-8.0)
--- NOTE | 2022-06-22 13:35 | MHC.HEMONC ---
Port accessed with good blood return noted. Labs obtained. Port flushed with heparin and de-accessed. Tolerated procedure well.
[2022-06-24 08:37] LABS: CA 27.29 19 U/mL (<38)
--- NOTE | 2022-06-30 12:07 | MHC.HEMONC ---
Pt called, asked for Nurse Timbo Agrawal, said she is looking for help finding a copy of a packet that Tanja had helped her w/ on the previous year, when she was applying for disability status. Unfortunately, Tanja confirmed that there are no saved copies of this document. This nurse recommended pt check w/ the disability office that received that packet. Pt was appreciative, said she would call back if she needs further guidance.
--- NOTE | 2022-08-06 17:01 | MHC.HEMONC ---
Port accessed with good blood return noted. Flushed with heparin and de-accessed. Next appointment scheduled for 6 weeks. Pt departed unit.
--- NOTE | 2022-08-07 11:11 | HO.HEMONCSCH ---
Mammogram sent to [facility].
[2022-09-24 14:31] VITALS: BP 131/67; PULSE 94; RESP 18; TEMP 36.1; O2SAT 98
--- NOTE | 2022-09-24 14:45 | MHC.HEMONC ---
Pt here for port flush. Port accessed with blood return noted. Port flushed with heparin and de accessed. Next appointment scheduled for mid October. Declines discharge packet,calendar given with next appointment
--- NOTE | 2022-11-05 14:00 | MHC.HEMONC ---
pt attended for port flush, no blood return noted but flushing well no pain. flushed with heparin and reassess next month with follow up
[2022-12-22 11:39] VITALS: BP 122/79; PULSE 72; RESP 17; TEMP 36.6; O2SAT 98; BMI 39.4
[2022-12-22 11:44] LABS: MANUAL DIFF FLAG NO
[2022-12-22 11:47] LABS: Basophils Percent Auto 0.3 % (0-2); Eosinophils Percent Auto 0.2 % (0-4); Hematocrit 40.9 % (37.0-47.0); Hemoglobin 14.2 g/dl (12.0-16.0); Imm Gran Abs Auto 0.04 X10*3/uL (0.00-0.03); Imm Gran Pct Auto 0.7 % (0.0-0.4); Lymphocytes Absolute Auto 1.5 X10*3/uL (1.2-4.9); Mean Corpuscular HGB Conc 34.7 g/dl (31.0-35.0); Mean Corpuscular Hemoglobin 29.5 pg (27.0-33.0); Mean Platelet Volume 9.1 fL (9.4-12.3); Monocytes Absolute Auto 0.6 X10*3/uL (0.1-1.2); Neutrophils Percent Auto 64.8 % (45-73); Platelet Count 178 X10*3/uL (160-400); Red Blood Count 4.81 X10*6/uL (4.20-5.50); Red Cell Distribution Width 13.3 % (11.0-16.0); White Blood Count 6.1 X10*3/uL (4.8-10.8)
--- NOTE | 2022-12-22 11:57 | PM.HEMONCPN ---
Medical Summary - Medical Summary Date of Service: 12/22/22 Chief complaint: Follow-up for: Left breast cancer. Primary Care Provider: Mina. Medical Summary: DIAGNOSIS: LEFT BREAST CANCER UPPER OUTER QUADRANT. CURRENT THERAPY: STATUS POST LUMPECTOMY ON 04/29/21. Pathology revealed: Invasive ductal carcinoma, high grade, 3 cm, with small satellite nodules x2 approximately 0.1 cm. DCIS nuclear grade 3 with comedonecrosis and calcifications. No lymphovascular invasion. Margins negative for invasive and in-situ ductal carcinoma, however invasive ductal carcinoma is less than 0.1 cm to the posterior margin and approximately 0.1 cm to the medial and lateral margins. Re-excision negative. ER negative/NC negative and HER2 Vonda negative. Three sentinel nodes were negative. Recieved weekly carboplatin Taxol based chemotherapy. Cycle 1 on 06/03/21. Completed Cycle 6, day 15, on November 04. Interval History Interval history: Marah Rivera is a pleasant 46 year old lady, here for a follow-up visit. She has not been feeling too well. She was actually seen in the ED on 12/19. The note: 47-year-old female who presents emergency department for evaluation of right-sided abdominal pain. She states that approximately 2-3 weeks prior she was having very bad heartburn and was using Tums frequently. She states that over the last 1 and half weeks she has been having constant, right-sided abdominal pain. She points to her right upper quadrant area when asked to localize the pain. She states the pain was a constant dull pain. She did have an outpatient ultrasound done on 12/18/2022 which revealed no evidence of cholecystitis or cholelithiasis. She states that last night around 19:00 hours she ate a hot dog. At around 22:00 hours the right upper quadrant pain got worse and became a sharp pain. The pain does radiate to her back. She had associated nausea and has been dry heaving. She denied fever, chills, rhinorrhea, sore throat. She states she has had a chronic cough for weeks but she describes attributes this to a smoker's cough. She states that she has had an increase amount of gas and feels bloated. Patient does have a history breast cancer and she states she had a left lumpectomy, complete chemotherapy in October of 2021 and radiation therapy in April of 2022. bloated feeling. Vital signs were normal. Physical exam did reveal moderate right upper quadrant tenderness a mild right lower quadrant tenderness. I ordered the nursing staff to access the patient's Port-A-Cath I ordered a CBC, CMP, PT/INR, PTT, lipase, lactic acid urinalysis, urine test, COVID-[address] scan of the abdomen pelvis with IV contrast. Patient's pain and nausea will be treated with Toradol 15 mg IV and Zofran 4 mg IV. She was also ordered to get normal saline x1 L. At the end of my shift, the patient's workup was pending, therefore the care was turned over to my colleague, Dr. Alannah Lockwood. Differential Diagnosis Differential diagnosis includes but is not limited to cholecystitis, appendicitis, pancreatitis, metastatic disease, gastritis, viral syndrome, esophagitis. CT scan of the abdomen/pelvis revealed: No acute findings identified in the abdomen/pelvis. Ultrasound of the abdomen from 12/18: IMPRESSION: No evidence of cholelithiasis or cholecystitis. Overall increased echogenicity within the liver may be consistent with fatty change. No free fluid She has ongoing pain in the right upper quadrant, it is sharp and constant, not related to meals. Pain level 7 on 1-10 scale. Sometimes she notices burps with small amount of vomiting. Prior to the pain she had dyspepsia and heartburn. She was taking Tums daily. Only time she would get relief is after a bowel movement. Even though she was not constipated. No fever nor chills. She denies headaches. Occasional dizziness. She gets short of breath on exertion. Echocardiogram was normal with normal LVEF. Appetite is not too good. Weight is stable. She has frequency of micturition. She gets generalized aches and pains. She has been trying to stay active. She has anxiety and depression. She saw her angiography nurse doctor, Dimitris. An ultrasound was done which revealed a cyst in the ovary. She did blood work and reassured her. Interim history: She completed cycle 6, day 15, of Carbo/Taxol weekly on 10/27/21. She came here after a long hiatus. She had some social/mental issues. She was seen in the emergency room on 11/10: Narrative: This is a 46-year-old female was brought in by ambulance. The patient was in her car at [facility] and apparentlywas acting bizarrely therefore personnel at [facility] called the ambulance. Patient herself is not forthcoming with regard to history. She is lying on her side with her hand over her mouth and for his speech is difficult to understand due to it being muffled but her hand. Patient states that her her family has been out to get her. She mentioned something about crisis evaluation. She denies alcohol or drug use. She said she feels that she is very hot. She notes she is being treated for breast cancer. She states she has had low platelets in the past. Patient also notes that she is DNR ?for any number of reasons? The patient appears to be manic, she is shouting at people that walk by in her in the emergency department, she is making bizarre statements such as she is a DNR but she does not have the paperwork and she does not care and wants to . I suspect that the patient has either bipolar disorder schizophrenia and is not taking her medications therefore she is a danger to herself and I am placing her on a Section 12. The patient will be kept in the emergency department until she can be evaluated by our crisis team. The patient refused to let me give her physical exam. At the end of my shift, the patient's care was turned over to my colleague, Dr. Soto. 01/15, she was seen by her primary care doctor Mina: She has history bipolar disorder, recently discharged from [facility] 01/19/2022,admitted for acute john with psychosis. She has history invasive ductal ca of left breast, and diagnosed to have diastolic dysfunction. She states that she is currently being seen by Dr. Trevino at [facility] for her cardiac follow-up, and will be transferred to [facility] for a double mastectomy. Patient states that she needs to be seen by psychiatrist. She was seen and evaluated by our mental health specialist, Rachael, who reviewed her discharge from recent psychiatric admission, and she was reminded that she is already has seen by [facility] a psychiatrist at [place] and has a follow-up appointment. Patient was given the number to contact her psychiatrist to schedule an appointment. She states that she has been feeling well at present time with no complaints of any chest pain, no suicidal ideations. She is trying to apply for disability, has been denied 4 times. Previous history: 1. She tells me, 1 of her teeth broke while biting into something. She had seen the dentist. She may need to have the tooth removed. 2. She had an abnormal mammogram. This was done on ,02/28 and revealed: Left breast has new mass, posterior upper outer quadrant in area of palpable in measuring 1.7 cm. Ultrasound demonstrated: Heterogenous macro lobulated hypoechoic mass posterior upper outer quadrant measurin.8 and 1.4 time 1.7 cm. Left axillary nodes showing normal fatty hilus and normal color. 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 She had her lumpectomy done on 04/29. She tells me that her surgery went well. The incision does appear to be healing, the open area has closed up. No more drainage. She had a follow-up appointment with Dr. Dutta. 3. Cardiac issues: She has had some cardiac issues. She was seen by Dr. Morse who diagnosed diastolic dysfunction. She went to Dr. Trevino in [place] who did right heart catheterization. He mention some muscular dysfunction/autonomic dysfunction. No treatment was suggested. Clinical trial was offered that she declined. She actually had an appointment with Dr. Brewer. 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 She still has her regular periods. Family history: Her mom was diagnosed with breast cancer at 38. She lived for 7 years. of metastatic disease. 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 She is not . She has no children. She smokes half a pack a day. She drinks very little alcohol. Review of Systems - Constitutional Reports system reviewed and no additional complaints, except as documented, Reports fatigue, Reports weakness, Denies weight gain - Eyes Reports system reviewed and no additional complaints, except as documented - ENT Reports system reviewed and no additional complaints, except as documented - Cardiovascular Reports system reviewed and no additional complaints, except as documented - Respiratory Reports no additional respiratory complaints - Gastrointestinal Reports system reviewed and no additional complaints, except as documented, Reports abdominal pain, Reports bloating, Reports change in bowel habits, Reports dyspepsia, Reports heartburn, Reports nausea - Genitourinary Reports no additional female genitourinary complaints - Musculoskeletal Reports system reviewed and no additional complaints, except as documented - Integumentary/Breasts Skin/Breast: Reports no additional skin complaints - Neurologic Reports system reviewed and no additional complaints, except as documented, Reports weakness - Psychiatric Reports system reviewed and no additional complaints, except as documented - Endocrine Reports no additional endocrine complaints - Hematologic/Lymphatic Reports system reviewed and no additional complaints, except as documented - Allergic/Immunologic Reports system reviewed and no additional complaints, except as documented PMFSH Medical History: Medical History (Last Reviewed 12/19/22 @ 01:32 by Martin Arthur MD) Diastolic dysfunction Exertional dyspnea Family history of breast cancer gene mutation in first degree relative Hx of cyst of breast Hx of lipoma Invasive ductal carcinoma of left breast Functional capacity: independent ambulation Patient : No Family History: Family History (Last Reviewed 12/19/22 @ 01:32 by Martin Arthur MD) Mother Breast cancer, Onset Age: 38 Father CAD (coronary artery disease) Hyperlipidemia HTN (hypertension) History of cardiac defibrillator placement Pacemaker Family/Other Lymphoma Paternal Grandmother Dementia Sister Substance use disorder Mental health disorder Surgical History: Surgical History (Last Reviewed 12/19/22 @ 01:32 by Martin Arthur MD) Endometriosis History of excision of mass History of lumpectomy of left breast Social History: Social History (Last Reviewed 12/19/22 @ 01:32 by Martin Arthur MD) Living Situation History: Household Members: Family Housing: House Are you a primary child care development specialist to a significant other at home: No Do you presently have visiting nurse or other home services: No Alcohol History Details: 1. How often do you have a drink containing alcohol?: b. Monthly or less 2. How many drinks containing alcohol do you have on a typical day when you are drinking?: a. 1 or 2 Tobacco History: Patient Tobacco Use Status: Current everyday Tobacco Tobacco use type: Cigarette Cigarette Packs Per Day: 0.5 e-Cigarette/Vaping Use: Never Used Substance Use History: Use of substances other than those prescribed or required for medical reasons: No Substance Use Type: Marijuana Domestic Abuse History: Have you been hit, kicked, punched, or otherwise hurt by someone within the past year? If so, by whom?: No Do you feel safe in your current relationship?: Yes Homicidal Assessment: Do you have thoughts of harming others: None Do you have a plan to hurt others: No Plan Do you have the means to hurt others: No Nutrition Assessment: Recently lost weight without trying: No Eating poorly because of decreased appetite: No Patient : No Occupation Assessmet: service: No Current occupational status: unemployed Oncology Screenings - ECOG Performance Status ECOG Performance Status: 0 Home Medications and Allergies Home Medications Medication Instructions Recorded Confirmed Type metoprolol tartrate 25 mg tablet 25 mg PO BID 01/14/21 12/22/22 History nitroglycerin 0.4 mg sublingual 0.4 mg sublingual Q5M PRN Chest 01/14/21 12/22/22 History tablet Pain aripiprazole 10 mg tablet (Abilify) 10 mg PO DAILY psychosis 01/16/22 12/22/22 History Allergies Allergy/AdvReac Type Severity Reaction Status Date / Time bee pollen [BEE STINGS] Allergy Severe ANAPHYLAXIS Verified 12/19/22 00:26 Penicillins Allergy Intermediate Unknown Verified 12/19/22 00:26 danazol Allergy Unknown hand Verified 12/19/22 00:26 swelling sertraline [Zoloft] AdvReac Unknown increasedi Verified 12/19/22 00:26 rritability codeine AdvReac Unknown nausea Uncoded 12/19/22 00:26 prilosec AdvReac Unknown bloating Uncoded 12/19/22 00:26 Exam Vital signs: Vital Signs Temp 97.9 F 12/22/22 11:39 Pulse 72 12/22/22 11:39 Resp 17 12/22/22 11:39 BP 122/79 12/22/22 11:39 Pulse Ox 98 12/22/22 11:39 O2 Del Method 12/22/22 11:39 Intake & Output 12/21/22 12/22/22 12/22/22 18:59 06:59 18:59 Other: Weight 97.7 kg Weight in Grams [id number] Weight 97.7 kg BMI result Body Mass Index 39.4 - Constitutional Present: mild distress - Routine HEENT Exam Head: Present: normocephalic Eye: Present: normal appearance ENT: Present: mucous membranes moist - Routine Neck Exam Present: full ROM - Routine Respiratory Exam Present: CTAB - Routine Cardiovascular Exam Cardiovascular: Present: RRR, S1, S2. Absent: rubs, S3, S4 - Routine Abdominal Exam Present: normal bowel sounds, nontender. Absent: diminished bowel sounds, organomegaly - Routine Rectal Exam Patient deferred: digital exam - Routine Extremities Exam Absent: tenderness - Routine Back/Spine/Pelvis Exam Back/Spine: Present: full ROM - Routine Skin Exam Present: intact, normal turgor - Routine Neurological Exam Present: alert, oriented X3 - Detailed Neurological Exam: Coma Scale Eye Opening: Spontaneous (4) - Routine Psychiatric Exam Present: normal affect Data - Labs CBC & Chem 7: 12/22/22 11:36 12/22/22 11:36 Assessment and Plan Patient Active problem list reviewed?: Yes (1) Breast cancer of upper-outer quadrant of left female breast Status: Resolved Assessment and plan: This is a pleasant 45-year-old lady with recent diagnosis of left-sided breast cancer upper outer quadrant. 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 Question is about neoadjuvant chemotherapy. Since the tumor size is small less than 2 cm., the nodes appear negative on the ultrasound. Would recommend upfront surgical resection for exact staging. She will need chemotherapy since she is triple negative. I discussed the case with Dr. Dutta, as well. She underwent a lumpectomy with sentinel node dissection. Her pathology revealed: Pathology revealed: Invasive ductal carcinoma, high grade, 3 cm, with small satellite nodules x2 approximately 0.1 cm. DCIS nuclear grade 3 with comedonecrosis and calcifications. No lymphovascular invasion. Margins negative for invasive and in-situ ductal carcinoma, however invasive ductal carcinoma is less than 0.1 cm to the posterior margin and approximately 0.1 cm to the medial and lateral margins. Re-excision negative. ER negative/NC negative and HER2 Vonda negative. Three sentinel nodes were negative. No lymphovascular invasion. Margins negative for invasive and in-situ ductal carcinoma, however invasive ductal carcinoma is less than 0.1 cm to the posterior margin and approximately 0.1 cm to the medial and lateral margins. Re-excision negative. ER negative/NC negative and HER2 Vonda negative. Three sentinel nodes were negative. She was deemed a candidate for adjuvant chemotherapy, being triple negative. Choices of chemotherapy included dose dense AC x4, followed by Taxol. However she does have a history of cardiac issues with diastolic dysfunction. In the situation I intended to avoid Adriamycin. She had an echocardiogram at [facility] few weeks prior which showed EF of 55%. Recent data suggest benefit of adjuvant carboplatin and Taxol, especially for triple negative disease. She had a Port-A-Cath placed to facilitate the chemotherapy. She got started on 06/03/21. She completed 6 cycles October,, without incident. Subsequently it appears that she had some mental breakdown. There is some history of bipolar disorder. She was inpatient at [facility] for a couple weeks. In November,, she developed COVID. She was at [facility] then transferred to [facility] for another couple weeks for psychiatric admission. It appears now that she is clinically stable. She had an appointment with gyn physician in [place] on February 25. She mentioned that she was considering a double mastectomy. I advised her to just get post lumpectomy radiation. She is concerned about dermatological toxicity related to radiation. She can at least meet with the radiation therapist and have her questions answered. She was referred for post lumpectomy radiation therapy. She preferred to go to [facility]. She finally completed the radiation 6 months ago. She had a mammogram on 08/19/2022 which was benign. Recently, she has had right upper quadrant/epigastric pain Fortunately the imaging is negative. She could have gastritis/ulcer disease. PLAN: She has been referred to GI, for further evaluation including endoscopy. Appointment is for 12/28. She will have her repeat mammogram, in July. Will check a bone density at the same time. After that,as long as everything is good, she can have the Port-A-Cath removed. She will return in 2 months for a follow-up. All her questions were answered to her satisfaction. Thank you, CC: Dr. Dutta. Dr. Enriquez. - Time Spent With Patient Time Spent with Patient (in minutes): 30
[2022-12-22 11:58] LABS: Alanine Aminotransferase 35 U/L (0-31); Albumin Level 4.1 g/dL (3.5-5.0); Alkaline Phosphatase 84 U/L (39-117); Anion Gap 15 (12-20); Aspartate Amino Transferase 25 U/L (5-31); Bilirubin Total 0.4 mg/dL (0.0-1.0); Blood Urea Nitrogen 12 mg/dL (9-16); Calcium 9.4 mg/dL (8.4-10.2); Carbon Dioxide 25 mmol/L (22-29); Chloride 104 mmol/L (96-108); Estimated Glomerular Filt Rate > 60; Glucose Random 104 mg/dL (60-115); Potassium 4.1 mmol/L (3.3-5.1); Sodium 140 mmol/L (135-145); Total Protein 6.7 g/dL (6.5-8.0)
--- NOTE | 2022-12-22 12:06 | MHC.HEMONC ---
Pt here for ONC follow up. Port accessed with blood return noted-labs drawn from port-specimen to lab. Pt complains of right upper quadrant pain for last 2-3 weeks. Area tender on palpation per pt. States was evaluated in ED from pain-results given to Dr Torres. Pt states she had an ulcer a few years ago. States has 'vomit burps from time to time.Provider into see pt. Plan for GI consult with Dr Aayush Salcedo or Alejandra Harrison. Will call to scheduled appointment. Will call pt with appointment. Next appointment scheduled-calendar given. Discharge packet given
--- NOTE | 2022-12-22 13:08 | MHC.HEMONC ---
Pt has appointment with GI (Mayra Villeda NP) on December 28 2022 at 1:30pm-pt notified of appointment
[2022-12-24 09:03] LABS: CA 27.29 19 U/mL (<38)
--- NOTE | 2023-02-02 11:17 | MHC.HEMONCSW ---
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 She inquired whether I might help with Disability, as she has an erisa attorney, actually she got a new erisa attorney because the other was doing nothing. She will let me know if i can help in any way.
--- NOTE | 2023-02-02 11:44 | MHC.HEMONC ---
Pt here for port flush. This nurse spoke with Dr Torres and Labs ordered. Port to right chest accessed, good blood return. Labs drawn. Port deaccessed with heparin. Calendar given with next follow 2 weeks up and port flush in 6 weeks. Pt departed.
[2023-02-02 11:45] LABS: MANUAL DIFF FLAG NO
[2023-02-02 11:52] LABS: Basophils Percent Auto 0.4 % (0-2); Hematocrit 40.7 % (37.0-47.0); Imm Gran Abs Auto 0.04 X10*3/uL (0.00-0.03); Imm Gran Pct Auto 0.5 % (0.0-0.4); Lymphocytes Absolute Auto 1.7 X10*3/uL (1.2-4.9); Lymphocytes Percent Auto 21.5 % (20-40); Mean Corpuscular HGB Conc 34.4 g/dl (31.0-35.0); Mean Corpuscular Hemoglobin 28.9 pg (27.0-33.0); Mean Corpuscular Volume 83.9 fL (80.0-98.0); Mean Platelet Volume 9.1 fL (9.4-12.3); Monocytes Absolute Auto 0.5 X10*3/uL (0.1-1.2); Monocytes Percent Auto 6.5 % (2-11); Neutrophils Absolute Auto 5.7 x10*3/uL (2.0-8.3); Neutrophils Percent Auto 71.1 % (45-73); Platelet Count 160 X10*3/uL (160-400); Red Blood Count 4.85 X10*6/uL (4.20-5.50); Red Cell Distribution Width 13.2 % (11.0-16.0)
[2023-02-02 12:06] LABS: Alanine Aminotransferase 28 U/L (0-31); Albumin Level 3.9 g/dL (3.5-5.0); Alkaline Phosphatase 78 U/L (39-117); Anion Gap 12 (12-20); Aspartate Amino Transferase 17 U/L (5-31); Bilirubin Total 0.4 mg/dL (0.0-1.0); Blood Urea Nitrogen 13 mg/dL (9-16); Calcium 8.9 mg/dL (8.4-10.2); Carbon Dioxide 26 mmol/L (22-29); Chloride 108 mmol/L (96-108); Estimated Glomerular Filt Rate > 60; Glucose Random 114 mg/dL (60-115); Sodium 142 mmol/L (135-145); Total Protein 6.2 g/dL (6.5-8.0)
[2023-02-04 10:34] LABS: CA 27.29 20 U/mL (<38)
[2023-02-15 13:55] VITALS: BP 110/70; PULSE 69; TEMP 36.2; O2SAT 99; BMI 28.3
--- NOTE | 2023-02-15 14:00 | PM.HEMONCPN ---
Medical Summary - Medical Summary Date of Service: 02/15/23 Chief complaint: Follow-up for: Triple negative breast cancer. Primary Care Provider: Carlyn Enriquez MD Medical Summary: DIAGNOSIS: LEFT BREAST CANCER UPPER OUTER QUADRANT. CURRENT THERAPY: STATUS POST LUMPECTOMY ON 04/29/21. Pathology revealed: Invasive ductal carcinoma, high grade, 3 cm, with small satellite nodules x2 approximately 0.1 cm. DCIS nuclear grade 3 with comedonecrosis and calcifications. No lymphovascular invasion. Margins negative for invasive and in-situ ductal carcinoma, however invasive ductal carcinoma is less than 0.1 cm to the posterior margin and approximately 0.1 cm to the medial and lateral margins. Re-excision negative. ER negative/OH negative and HER2 Vonda negative. Three sentinel nodes were negative. Recieved weekly carboplatin Taxol based chemotherapy. Cycle 1 on 06/03/21. Completed Cycle 6, day 15, on November 04. Interval History Interval history: Marah Rivera is a pleasant 46 year old lady, here for a follow-up visit. She has not been feeling too well. She has noticed chest pain for the past week. She has had some PVCs as well. She is waiting for a call back from her insurance customer service specialist in [place], Dr. klein. She would like to see Dr. Madrid at [facility], in the interim. She feels rather fatigued. No fever nor chills. She denies headaches. Occasional dizziness. She gets short of breath on exertion. Echocardiogram was normal with normal LVEF. Appetite is not too good. Weight is stable. She has frequency of micturition. She gets generalized aches and pains. She has been trying to stay active. She has anxiety and depression. Rest of the ROS is normal. RECENT HISTORY: She was actually seen in the ED on 12/19. The note: 47-year-old female who presents emergency department for evaluation of right-sided abdominal pain. She states that approximately 2-3 weeks prior she was having very bad heartburn and was using Tums frequently. She states that over the last 1 and half weeks she has been having constant, right-sided abdominal pain. She points to her right upper quadrant area when asked to localize the pain. She states the pain was a constant dull pain. She did have an outpatient ultrasound done on 12/18/2022 which revealed no evidence of cholecystitis or cholelithiasis. She states that last night around 19:00 hours she ate a hot dog. At around 22:00 hours the right upper quadrant pain got worse and became a sharp pain. The pain does radiate to her back. She had associated nausea and has been dry heaving. She denied fever, chills, rhinorrhea, sore throat. She states she has had a chronic cough for weeks but she describes attributes this to a smoker's cough. She states that she has had an increase amount of gas and feels bloated. Patient does have a history breast cancer and she states she had a left lumpectomy, complete chemotherapy in October of 2021 and radiation therapy in April of 2022. bloated feeling. Vital signs were normal. Physical exam did reveal moderate right upper quadrant tenderness a mild right lower quadrant tenderness. I ordered the nursing staff to access the patient's Port-A-Cath I ordered a CBC, CMP, PT/INR, PTT, lipase, lactic acid urinalysis, urine test, COVID-[address] scan of the abdomen pelvis with IV contrast. Patient's pain and nausea will be treated with Toradol 15 mg IV and Zofran 4 mg IV. She was also ordered to get normal saline x1 L. The care was turned over to my colleague, Dr. Alananh Lockwood. Differential Diagnosis Differential diagnosis includes but is not limited to cholecystitis, appendicitis, pancreatitis, metastatic disease, gastritis, viral syndrome, esophagitis. CT scan of the abdomen/pelvis revealed: No acute findings identified in the abdomen/pelvis. Ultrasound of the abdomen from 12/18: IMPRESSION: No evidence of cholelithiasis or cholecystitis. Overall increased echogenicity within the liver may be consistent with fatty change. No free fluid She saw her dialysis technician doctor, Dimitris. An ultrasound was done which revealed a cyst in the ovary. She did blood work and reassured her. Interim history: She completed cycle 6, day 15, of Carbo/Taxol weekly on 10/27/21. She came here after a long hiatus. She had some social/mental issues. She was seen in the emergency room on 11/10: Narrative: This is a 46-year-old female was brought in by ambulance. The patient was in her car at [facility] and apparentlywas acting bizarrely therefore personnel at [facility] called the ambulance. Patient herself is not forthcoming with regard to history. She is lying on her side with her hand over her mouth and for his speech is difficult to understand due to it being muffled but her hand. Patient states that her her family has been out to get her. She mentioned something about crisis evaluation. She denies alcohol or drug use. She said she feels that she is very hot. She notes she is being treated for breast cancer. She states she has had low platelets in the past. Patient also notes that she is DNR ?for any number of reasons? The patient appears to be manic, she is shouting at people that walk by in her in the emergency department, she is making bizarre statements such as she is a DNR but she does not have the paperwork and she does not care and wants to . I suspect that the patient has either bipolar disorder schizophrenia and is not taking her medications therefore she is a danger to herself and I am placing her on a Section 12. The patient will be kept in the emergency department until she can be evaluated by our crisis team. The patient refused to let me give her physical exam. At the end of my shift, the patient's care was turned over to my colleague, Dr. Soto. 01/15, she was seen by her primary care doctor Mina: She has history bipolar disorder, recently discharged from [facility] 01/19/2022,admitted for acute john with psychosis. She has history invasive ductal ca of left breast, and diagnosed to have diastolic dysfunction. She states that she is currently being seen by Dr. Trevino at [facility] for her cardiac follow-up, and will be transferred to [facility] for a double mastectomy. Patient states that she needs to be seen by psychiatrist. She was seen and evaluated by our mental health specialist, Rachael, who reviewed her discharge from recent psychiatric admission, and she was reminded that she is already has seen by [facility] a psychiatrist at [place] and has a follow-up appointment. Patient was given the number to contact her psychiatrist to schedule an appointment. She states that she has been feeling well at present time with no complaints of any chest pain, no suicidal ideations. She is trying to apply for disability, has been denied 4 times. Previous history: 1. She tells me, 1 of her teeth broke while biting into something. She had seen the dentist. She may need to have the tooth removed. 2. She had an abnormal mammogram. This was done on ,02/28 and revealed: Left breast has new mass, posterior upper outer quadrant in area of palpable in measuring 1.7 cm. Ultrasound demonstrated: Heterogenous macro lobulated hypoechoic mass posterior upper outer quadrant measurin.8 and 1.4 time 1.7 cm. Left axillary nodes showing normal fatty hilus and normal color. 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 She had her lumpectomy done on 04/29. She tells me that her surgery went well. The incision does appear to be healing, the open area has closed up. No more drainage. She had a follow-up appointment with Dr. Dutta. 3. Cardiac issues: She has had some cardiac issues. She was seen by Dr. Morse who diagnosed diastolic dysfunction. She went to Dr. Trevino in [place] who did right heart catheterization. He mention some muscular dysfunction/autonomic dysfunction. No treatment was suggested. Clinical trial was offered that she declined. She actually had an appointment with Dr. Brewer. Civil Engineering Assistant History: Menarche at 10. She still has her regular periods. Family history: Her mom was diagnosed with breast cancer at 38. She lived for 7 years. of metastatic disease. 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 She is not . She has no children. She smokes half a pack a day. She drinks very little alcohol. Review of Systems - Constitutional Reports no additional constitutional complaints, Reports weakness, Reports weight loss - Eyes Reports no additional eye complaints - ENT Reports no additional ear, nose, mouth, and throat complaints - Cardiovascular Reports no additional cardiovascular complaints, Reports chest pain - Respiratory Reports no additional respiratory complaints - Gastrointestinal Reports no additional gastrointestinal complaints - Genitourinary Reports no additional female genitourinary complaints - Musculoskeletal Reports no additional musculoskeletal complaints - Integumentary/Breasts Skin/Breast: Reports no additional skin complaints - Neurologic Reports no additional neurologic complaints, Reports weakness - Psychiatric Reports no additional psychiatric complaints - Endocrine Reports no additional endocrine complaints - Hematologic/Lymphatic Reports no additional hematologic/lymphatic complaints - Allergic/Immunologic Reports no additional allergic/immunologic complaints [facility] Medical History: Medical History (Last Reviewed 02/15/23 @ 14:01 by Helen Espinosa) Diastolic dysfunction Exertional dyspnea Family history of breast cancer gene mutation in first degree relative Hx of cyst of breast Hx of lipoma Impaired fasting glucose Invasive ductal carcinoma of left breast Skin lesion of left upper extremity Functional capacity: independent ambulation Patient : No Family History: Family History (Last Reviewed 02/15/23 @ 14:01 by Helen Espinosa) Mother Breast cancer, Onset Age: 38 Father CAD (coronary artery disease) Hyperlipidemia HTN (hypertension) History of cardiac defibrillator placement Pacemaker Family/Other Lymphoma Paternal Grandmother Dementia Sister Substance use disorder Mental health disorder Surgical History: Surgical History (Last Reviewed 02/15/23 @ 14:01 by Helen Espinosa) Endometriosis History of excision of mass History of lumpectomy of left breast Social History: Social History (Last Reviewed 02/15/23 @ 14:01 by Helen Espinosa) Living Situation History: Household Members: Family Housing: House Are you a primary specialist wound care to a significant other at home: No Do you presently have visiting nurse or other home services: No Alcohol History Details: 1. How often do you have a drink containing alcohol?: b. Monthly or less 2. How many drinks containing alcohol do you have on a typical day when you are drinking?: a. 1 or 2 Tobacco History: Patient Tobacco Use Status: Current everyday Tobacco Tobacco use type: Cigarette Cigarette Packs Per Day: 0.5 e-Cigarette/Vaping Use: Never Used Substance Use History: Use of substances other than those prescribed or required for medical reasons: No Substance Use Type: Marijuana Domestic Abuse History: Have you been hit, kicked, punched, or otherwise hurt by someone within the past year? If so, by whom?: No Do you feel safe in your current relationship?: Yes Homicidal Assessment: Do you have thoughts of harming others: None Do you have a plan to hurt others: No Plan Do you have the means to hurt others: No Nutrition Assessment: Recently lost weight without trying: No Eating poorly because of decreased appetite: No Patient : No Occupation Assessmet: service: No Current occupational status: unemployed Oncology Screenings - ECOG Performance Status ECOG Performance Status: 0 Home Medications and Allergies Home Medications Medication Instructions Recorded Confirmed Type metoprolol tartrate 25 mg tablet 25 mg PO BID 01/14/21 02/15/23 History nitroglycerin 0.4 mg sublingual 0.4 mg sublingual Q5M PRN Chest 01/14/21 02/15/23 History tablet Pain aripiprazole 10 mg tablet (Abilify) 10 mg PO DAILY psychosis 01/16/22 02/15/23 History hydroxyzine HCl 10 mg PO DAILY PRN Anxiety 02/15/23 02/15/23 History Allergies Allergy/AdvReac Type Severity Reaction Status Date / Time bee pollen [BEE STINGS] Allergy Severe ANAPHYLAXIS Verified 02/15/23 14:02 Penicillins Allergy Intermediate Unknown Verified 02/15/23 14:02 danazol Allergy Unknown hand Verified 02/15/23 14:02 swelling sertraline [Zoloft] AdvReac Unknown increasedi Verified 02/15/23 14:02 rritability codeine AdvReac Unknown nausea Uncoded 02/15/23 14:02 prilosec AdvReac Unknown bloating Uncoded 02/15/23 14:02 Exam Vital signs: Vital Signs Temp 97.9 F 12/22/22 11:39 Pulse 72 12/22/22 11:39 Resp 17 12/22/22 11:39 BP 122/79 12/22/22 11:39 Pulse Ox 98 12/22/22 11:39 O2 Del Method Room Air 12/22/22 11:39 Weight 97.7 kg BMI result Body Mass Index 39.4 - Constitutional Present: mild distress - Routine HEENT Exam Head: Present: normocephalic Eye: Present: normal appearance ENT: Present: mucous membranes moist - Routine Neck Exam Present: full ROM - Routine Respiratory Exam Present: CTAB - Routine Cardiovascular Exam Cardiovascular: Present: RRR, S1, S2. Absent: rubs, S3, S4 - Routine Abdominal Exam Present: normal bowel sounds, nontender. Absent: diminished bowel sounds, organomegaly - Routine Rectal Exam Patient deferred: digital exam - Routine Extremities Exam Absent: tenderness - Routine Back/Spine/Pelvis Exam Back/Spine: Present: full ROM - Routine Skin Exam Present: intact, normal turgor - Routine Neurological Exam Present: alert, oriented X3 - Detailed Neurological Exam: Coma Scale Eye Opening: Spontaneous (4) - Routine Psychiatric Exam Present: normal affect Data - Labs CBC & Chem 7: 02/02/23 11:40 02/02/23 11:40 Assessment and Plan Patient Active problem list reviewed?: Yes (1) Breast cancer of upper-outer quadrant of left female breast Status: Resolved Assessment and plan: This is a pleasant 45-year-old lady with recent diagnosis of left-sided breast cancer upper outer quadrant. 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 Question is about neoadjuvant chemotherapy. Since the tumor size is small less than 2 cm., the nodes appear negative on the ultrasound. Would recommend upfront surgical resection for exact staging. She will need chemotherapy since she is triple negative. I discussed the case with Dr. Dutta, as well. She underwent a lumpectomy with sentinel node dissection. Her pathology revealed: Pathology revealed: Invasive ductal carcinoma, high grade, 3 cm, with small satellite nodules x2 approximately 0.1 cm. DCIS nuclear grade 3 with comedonecrosis and calcifications. No lymphovascular invasion. Margins negative for invasive and in-situ ductal carcinoma, however invasive ductal carcinoma is less than 0.1 cm to the posterior margin and approximately 0.1 cm to the medial and lateral margins. Re-excision negative. ER negative/OH negative and HER2 Vonda negative. Three sentinel nodes were negative. No lymphovascular invasion. Margins negative for invasive and in-situ ductal carcinoma, however invasive ductal carcinoma is less than 0.1 cm to the posterior margin and approximately 0.1 cm to the medial and lateral margins. Re-excision negative. ER negative/OH negative and HER2 Vonda negative. Three sentinel nodes were negative. She was deemed a candidate for adjuvant chemotherapy, being triple negative. Choices of chemotherapy included dose dense AC x4, followed by Taxol. However she does have a history of cardiac issues with diastolic dysfunction. In the situation I intended to avoid Adriamycin. She had an echocardiogram at [facility] few weeks prior which showed EF of 55%. Recent data suggest benefit of adjuvant carboplatin and Taxol, especially for triple negative disease. She had a Port-A-Cath placed to facilitate the chemotherapy. She got started on 06/03/21. She completed 6 cycles October,, without incident. Subsequently it appears that she had some mental breakdown. There is some history of bipolar disorder. She was inpatient at [facility] for a couple weeks. In November,, she developed COVID. She was at [facility] then transferred to [facility] for another couple weeks for psychiatric admission. It appears now that she is clinically stable. She had an appointment with insurance customer service specialist in [place] on February 25. She mentioned that she was considering a double mastectomy. I advised her to just get post lumpectomy radiation. She is concerned about dermatological toxicity related to radiation. She can at least meet with the radiation therapist and have her questions answered. She was referred for post lumpectomy radiation therapy. She preferred to go to [facility]. She finally completed the radiation 6 months ago. She had a mammogram on 08/19/2022 which was benign. Recently, she has had right upper quadrant/epigastric pain Fortunately the imaging is negative. She could have gastritis/ulcer disease. She was referred to GI, for further evaluation including endoscopy. Appointment was for 12/28. She saw Pb Anaya, her note: 47-year-old female multiple comorbidities referred for index screening colonoscopy presents with persistent acid reflux. Schedule EGD to r/o pud, nonulcer dyspepsia, esophagitis other endoscopic findings to account for his symptoms as well as screening colonoscopy. Discussed procedures, rare risks, need for escorted due to anesthesia, it in cardiac history, unclear will get anesthesia consult. Discuss MiraLax Gatorade split prep, literature given. She will have H pylori test if positive we will treat-otherwise pantoprazole 40 mg which has given her fairly good response in the past. Lately, she has had CP, and PVCs. PLAN: An appt will be set up with Dr. Madrid, at her request. She will have her repeat mammogram, in July. Will check a bone density at the same time. After that, as long as everything is good, she can have the Port-A-Cath removed. She will return in 3 months for a follow-up. All her questions were answered to her satisfaction. Thank you, CC: Dr. Dutta. Dr. Enriquez. - Time Spent With Patient Time Spent with Patient (in minutes): 25
--- NOTE | 2023-02-15 15:22 | MHC.HEMONCMA ---
patient seen today for left bca, vss, following up in 6 months
--- NOTE | 2023-02-16 11:45 | MHC.HEMONCMA ---
spoke to patient she is aware of appt with dr massey - retirement specialist at [facility] in [place], appt for 03/12/23 at 1:20
--- NOTE | 2023-03-16 14:51 | MHC.HEMONC ---
port accessed with good blood return. flushed with saline and heparin and deaccessed. Pt aware of next appt, calendar provided.
--- NOTE | 2023-04-20 15:50 | MHC.HEMONC ---
Triage call-pt called requesting all dates and times of chemotherapy appointments, provider visits, port flushes and injections for community service officer coordinator. Pt instructed to call medical records-verbalizes understanding of informtion given
--- NOTE | 2023-04-28 09:24 | HE.ONCSEC ---
tried to LVM reminding pt of injection on 04/29/23. Mailbox was full and unable to leave a message.
--- NOTE | 2023-04-29 15:29 | MHC.HEMONC ---
Pt here for port flush. Port accessed with no blood return noted-despite position changes and multiple 0.9% NS flushes. Pt states she is having next mammo in the fall-hoping to get port removed after mammo. Port flushed with heparin and de accessed. Next appointment scheduled-calendar given
--- NOTE | 2023-06-24 13:42 | MHC.HEMONC ---
Port accessed, no blood return noted. Flushes well, no pain. Flushed with heparin 500units and de-accessed. Next port flush scheduled with follow up in 8 weeks. Calendar given
--- NOTE | 2023-08-24 13:47 | PM.HEMONCPN ---
Medical Summary - Medical Summary Date of Service: 08/24/23 Chief complaint: Follow-up for: Breast cancer. Primary Care Provider: Carlyn Enriquez MD Medical Summary: DIAGNOSIS: LEFT BREAST CANCER UPPER OUTER QUADRANT. CURRENT THERAPY: STATUS POST LUMPECTOMY ON 04/29/21. Pathology revealed: Invasive ductal carcinoma, high grade, 3 cm, with small satellite nodules x2 approximately 0.1 cm. DCIS nuclear grade 3 with comedonecrosis and calcifications. No lymphovascular invasion. Margins negative for invasive and in-situ ductal carcinoma, however invasive ductal carcinoma is less than 0.1 cm to the posterior margin and approximately 0.1 cm to the medial and lateral margins. Re-excision negative. ER negative/DE negative and HER2 Vonda negative. Three sentinel nodes were negative. Recieved weekly carboplatin Taxol based chemotherapy. Cycle 1 on 06/03/21. Completed Cycle 6, day 15, on November 04. Interval History Interval history: Marah Rivera is a pleasant 46 year old lady, here for a follow-up visit. She was seen in the ED on 08/22. Narrative: Patient with chronic recurrent epigastric pain had an ultrasound done in 12/17 which was negative. Pain is constant epigastric areas patient for last 3 months no relation with food no nausea no vomiting nose weight loss. Patient does have a strong family history of breast cancer. Also history of pancreatic cancer in her cousins but patient's previous CT scan on 12/[address] scan of the abdomen pelvis revealed: 1. Multiple new peripherally enhancing hepatic lesions, most concerning for metastatic disease. 2. A 1.5 cm hypoattenuating soft tissue focus along the cephalad margin of the pancreatic body is new as compared to prior and may correspond to an adjacent enlarged lymph node or a primary pancreatic lesion. 3. A few new pulmonary nodules at the lung bases which are concerning for metastatic disease in the context of the new hepatic lesions. 4. Borderline enlarged retroperitoneal lymph nodes. She has not been feeling well, over the past couple of weeks. She has noticed upper abdominal pain. This fluctuates but becomes intense at times. It was a level 9 when she went to the ED. she has nausea. She was given oxycodone. She has been taking a couple a day. It is helping. Her bowels a fluctuating sometimes normal and sometimes diarrhea like. She feels rather fatigued. No fever nor chills. She denies headaches. Occasional dizziness. She gets short of breath on exertion. Echocardiogram was normal with normal LVEF. Appetite is not too good. Weight is stable. She denies frequency of micturition. She gets generalized aches and pains. She has been trying to stay active. She has anxiety and depression. Rest of the ROS is normal. RECENT HISTORY: She was actually seen in the ED on 12/19. The note: 47-year-old female who presents emergency department for evaluation of right-sided abdominal pain. She states that approximately 2-3 weeks prior she was having very bad heartburn and was using Tums frequently. She states that over the last 1 and half weeks she has been having constant, right-sided abdominal pain. She points to her right upper quadrant area when asked to localize the pain. She states the pain was a constant dull pain. She did have an outpatient ultrasound done on 12/18/2022 which revealed no evidence of cholecystitis or cholelithiasis. She states that last night around 19:00 hours she ate a hot dog. At around 22:00 hours the right upper quadrant pain got worse and became a sharp pain. The pain does radiate to her back. She had associated nausea and has been dry heaving. She denied fever, chills, rhinorrhea, sore throat. She states she has had a chronic cough for weeks but she describes attributes this to a smoker's cough. She states that she has had an increase amount of gas and feels bloated. Patient does have a history breast cancer and she states she had a left lumpectomy, complete chemotherapy in October of 2021 and radiation therapy in April of 2022. bloated feeling. Vital signs were normal. Physical exam did reveal moderate right upper quadrant tenderness a mild right lower quadrant tenderness. I ordered the nursing staff to access the patient's Port-A-Cath I ordered a CBC, CMP, PT/INR, PTT, lipase, lactic acid urinalysis, urine test, COVID-[address] scan of the abdomen pelvis with IV contrast. Patient's pain and nausea will be treated with Toradol 15 mg IV and Zofran 4 mg IV. She was also ordered to get normal saline x1 L. The care was turned over to my colleague, Dr. Alannah Lockwood. Differential Diagnosis Differential diagnosis includes but is not limited to cholecystitis, appendicitis, pancreatitis, metastatic disease, gastritis, viral syndrome, esophagitis. CT scan of the abdomen/pelvis revealed: No acute findings identified in the abdomen/pelvis. Ultrasound of the abdomen from 12/18: IMPRESSION: No evidence of cholelithiasis or cholecystitis. Overall increased echogenicity within the liver may be consistent with fatty change. No free fluid She saw her cargo and ramp services manager doctor, Dimitris. An ultrasound was done which revealed a cyst in the ovary. She did blood work and reassured her. Interim history: She completed cycle 6, day 15, of Carbo/Taxol weekly on 10/27/21. She came here after a long hiatus. She had some social/mental issues. She was seen in the emergency room on 11/10: Narrative: This is a 46-year-old female was brought in by ambulance. The patient was in her car at [facility] and apparentlywas acting bizarrely therefore personnel at [facility] called the ambulance. Patient herself is not forthcoming with regard to history. She is lying on her side with her hand over her mouth and for his speech is difficult to understand due to it being muffled but her hand. Patient states that her her family has been out to get her. She mentioned something about crisis evaluation. She denies alcohol or drug use. She said she feels that she is very hot. She notes she is being treated for breast cancer. She states she has had low platelets in the past. Patient also notes that she is DNR ?for any number of reasons? The patient appears to be manic, she is shouting at people that walk by in her in the emergency department, she is making bizarre statements such as she is a DNR but she does not have the paperwork and she does not care and wants to . I suspect that the patient has either bipolar disorder schizophrenia and is not taking her medications therefore she is a danger to herself and I am placing her on a Section 12. The patient will be kept in the emergency department until she can be evaluated by our crisis team. The patient refused to let me give her physical exam. At the end of my shift, the patient's care was turned over to my colleague, Dr. Soto. 01/15, she was seen by her primary care doctor Mina: She has history bipolar disorder, recently discharged from [facility] 01/19/2022,admitted for acute john with psychosis. She has history invasive ductal ca of left breast, and diagnosed to have diastolic dysfunction. She states that she is currently being seen by Dr. Trevino at [facility] for her cardiac follow-up, and will be transferred to [facility] for a double mastectomy. Patient states that she needs to be seen by psychiatrist. She was seen and evaluated by our mental health specialist, Rachael, who reviewed her discharge from recent psychiatric admission, and she was reminded that she is already has seen by [facility] a psychiatrist at [place] and has a follow-up appointment. Patient was given the number to contact her psychiatrist to schedule an appointment. She states that she has been feeling well at present time with no complaints of any chest pain, no suicidal ideations. She is trying to apply for disability, has been denied 4 times. Previous history: 1. She tells me, 1 of her teeth broke while biting into something. She had seen the dentist. She may need to have the tooth removed. 2. She had an abnormal mammogram. This was done on ,02/28 and revealed: Left breast has new mass, posterior upper outer quadrant in area of palpable in measuring 1.7 cm. Ultrasound demonstrated: Heterogenous macro lobulated hypoechoic mass posterior upper outer quadrant measurin.8 and 1.4 time 1.7 cm. Left axillary nodes showing normal fatty hilus and normal color. 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 She had her lumpectomy done on 04/29. She tells me that her surgery went well. The incision does appear to be healing, the open area has closed up. No more drainage. She had a follow-up appointment with Dr. Dutta. 3. Cardiac issues: She has had some cardiac issues. She was seen by Dr. Morse who diagnosed diastolic dysfunction. She went to Dr. Trevino in [place] who did right heart catheterization. He mention some muscular dysfunction/autonomic dysfunction. No treatment was suggested. Clinical trial was offered that she declined. She actually had an appointment with Dr. Brewer. Manager Of Quality History: Menarche at 10. She still has her regular periods. Family history: Her mom was diagnosed with breast cancer at 38. She lived for 7 years. of metastatic disease. 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 She is not . She has no children. She smokes half a pack a day. She drinks very little alcohol. Review of Systems - Constitutional Reports system reviewed and no additional complaints, except as documented, Reports fatigue, Reports lack of energy, Reports malaise, Reports weight loss - Eyes Reports system reviewed and no additional complaints, except as documented - ENT Reports system reviewed and no additional complaints, except as documented - Cardiovascular Reports system reviewed and no additional complaints, except as documented - Respiratory Reports no additional respiratory complaints - Gastrointestinal Reports system reviewed and no additional complaints, except as documented, Reports abdominal pain, Reports bloating, Reports diarrhea - Genitourinary Reports no additional female genitourinary complaints - Musculoskeletal Reports system reviewed and no additional complaints, except as documented - Integumentary/Breasts Skin/Breast: Reports no additional skin complaints - Neurologic Reports system reviewed and no additional complaints, except as documented, Reports weakness - Psychiatric Reports system reviewed and no additional complaints, except as documented - Endocrine Reports no additional endocrine complaints - Hematologic/Lymphatic Reports system reviewed and no additional complaints, except as documented - Allergic/Immunologic Reports system reviewed and no additional complaints, except as documented PMFSH Medical History: Medical History (Last Reviewed 08/31/23 @ 14:50 by Kenny Tan RN) Diastolic dysfunction Exertional dyspnea Family history of breast cancer gene mutation in first degree relative Hx of cyst of breast Hx of lipoma Impaired fasting glucose Invasive ductal carcinoma of left breast Skin lesion of left upper extremity Functional capacity: independent ambulation Patient : No Family History: Family History (Last Reviewed 08/31/23 @ 14:50 by Kenny Tan RN) Mother Breast cancer, Onset Age: 38 Father CAD (coronary artery disease) Hyperlipidemia HTN (hypertension) History of cardiac defibrillator placement Pacemaker Family/Other Lymphoma Paternal Grandmother Dementia Sister Substance use disorder Mental health disorder Surgical History: Surgical History (Last Reviewed 08/31/23 @ 14:50 by Kenny Tan RN) Endometriosis History of excision of mass History of lumpectomy of left breast Social History: Social History (Last Reviewed 08/31/23 @ 14:50 by Kenny Tan RN) Living Situation History: Household Members: Family Housing: House Are you a primary customer care manager to a significant other at home: No Do you presently have visiting nurse or other home services: No Tobacco History: Patient Tobacco Use Status: Current everyday Tobacco Tobacco use type: Cigarette Cigarette Packs Per Day: 0.5 Cigarettes Per Day: 10.0 e-Cigarette/Vaping Use: Never Used Substance Use History: Substance Use Type: Marijuana Advance Directives: Advance Directives Date on File: 11/26/21 Occupation Assessmet: service: No Current occupational status: unemployed Oncology Screenings - ECOG Performance Status ECOG Performance Status: 0 Home Medications and Allergies Home Medications Medication Instructions Recorded Confirmed Type metoprolol tartrate 25 mg tablet 25 mg PO BID 01/14/21 08/31/23 History nitroglycerin 0.4 mg sublingual 0.4 mg sublingual Q5M PRN Chest 01/14/21 08/31/23 History tablet Pain aripiprazole 10 mg tablet (Abilify) 10 mg PO DAILY psychosis 01/16/22 08/31/23 History hydroxyzine HCl 10 mg PO DAILY PRN Anxiety 02/15/23 08/31/23 History Bacillus coagulans 250 million 250 cell PO DAILY 08/12/23 08/31/23 History cell chewable tablet (Probiotic (B. coagulans)) multivitamin with minerals-folic 0.4 tab PO DAILY 08/12/23 08/31/23 History acid 0.4 mg tablet (One-A-Day Women's 50 Plus) Allergies Allergy/AdvReac Type Severity Reaction Status Date / Time bee pollen [BEE STINGS] Allergy Severe ANAPHYLAXIS Verified 08/24/23 13:47 Penicillins Allergy Intermediate Unknown Verified 08/24/23 13:47 danazol Allergy Unknown hand Verified 08/24/23 13:47 swelling sertraline [Zoloft] AdvReac Unknown increasedi Verified 08/24/23 13:47 rritability codeine AdvReac Unknown nausea Uncoded 08/24/23 13:47 prilosec AdvReac Unknown bloating Uncoded 08/24/23 13:47 Exam Vital signs: Vital Signs Temp 97.2 F 02/15/23 13:55 Pulse 69 02/15/23 13:55 Resp 17 12/22/22 11:39 BP 110/70 02/15/23 13:55 Pulse Ox 99 02/15/23 13:55 O2 Del Method Room Air 02/15/23 13:55 Weight 70.2 kg BMI result Body Mass Index 28.3 - Constitutional Present: mild distress - Routine HEENT Exam Head: Present: normocephalic Eye: Present: normal appearance ENT: Present: mucous membranes moist - Routine Neck Exam Present: full ROM - Routine Respiratory Exam Present: CTAB - Routine Cardiovascular Exam Cardiovascular: Present: RRR, S1, S2. Absent: rubs, S3, S4 - Routine Abdominal Exam Present: normal bowel sounds, nontender. Absent: diminished bowel sounds, organomegaly - Routine Rectal Exam Patient deferred: digital exam - Routine Extremities Exam Absent: tenderness - Routine Back/Spine/Pelvis Exam Back/Spine: Present: full ROM - Routine Skin Exam Present: intact, normal turgor - Routine Neurological Exam Present: alert, oriented X3 - Detailed Neurological Exam: Coma Scale Eye Opening: Spontaneous (4) - Routine Psychiatric Exam Present: normal affect Data - Labs CBC & Chem 7: 02/02/23 11:40 04 11:40 Assessment and Plan Patient Active problem list reviewed?: Yes (1) Breast cancer of upper-outer quadrant of left female breast Status: Resolved Assessment and plan: This is a pleasant 45-year-old lady with recent diagnosis of left-sided breast cancer upper outer quadrant. 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 Question is about neoadjuvant chemotherapy. Since the tumor size is small less than 2 cm., the nodes appear negative on the ultrasound. Would recommend upfront surgical resection for exact staging. She will need chemotherapy since she is triple negative. I discussed the case with Dr. Dutta, as well. She underwent a lumpectomy with sentinel node dissection. Her pathology revealed: Pathology revealed: Invasive ductal carcinoma, high grade, 3 cm, with small satellite nodules x2 approximately 0.1 cm. DCIS nuclear grade 3 with comedonecrosis and calcifications. No lymphovascular invasion. Margins negative for invasive and in-situ ductal carcinoma, however invasive ductal carcinoma is less than 0.1 cm to the posterior margin and approximately 0.1 cm to the medial and lateral margins. Re-excision negative. ER negative/DE negative and HER2 Vonda negative. Three sentinel nodes were negative. No lymphovascular invasion. Margins negative for invasive and in-situ ductal carcinoma, however invasive ductal carcinoma is less than 0.1 cm to the posterior margin and approximately 0.1 cm to the medial and lateral margins. Re-excision negative. ER negative/DE negative and HER2 Vonda negative. Three sentinel nodes were negative. She was deemed a candidate for adjuvant chemotherapy, being triple negative. Choices of chemotherapy included dose dense AC x4, followed by Taxol. However she does have a history of cardiac issues with diastolic dysfunction. In the situation I intended to avoid Adriamycin. She had an echocardiogram at [facility] few weeks prior which showed EF of 55%. Recent data suggest benefit of adjuvant carboplatin and Taxol, especially for triple negative disease. She had a Port-A-Cath placed to facilitate the chemotherapy. She got started on 06/03/21. She completed 6 cycles October,, without incident. Subsequently it appears that she had some mental breakdown. There is some history of bipolar disorder. She was inpatient at [facility] for a couple weeks. In November,, she developed COVID. She was at [facility] then transferred to [facility] for another couple weeks for psychiatric admission. It appears now that she is clinically stable. She had an appointment with drapery sewer hand in [place] on February 25. She mentioned that she was considering a double mastectomy. I advised her to just get post lumpectomy radiation. She is concerned about dermatological toxicity related to radiation. She can at least meet with the radiation therapist and have her questions answered. She was referred for post lumpectomy radiation therapy. She preferred to go to [facility]. She finally completed the radiation 6 months ago. She had a mammogram on 08/19/2022 which was benign. Recently, she has had right upper quadrant/epigastric pain Fortunately the imaging is negative. She could have gastritis/ulcer disease. She was referred to GI, for further evaluation including endoscopy. Appointment was for 12/28. She saw Pb Anaya, her note: 47-year-old female multiple comorbidities referred for index screening colonoscopy presents with persistent acid reflux. Schedule EGD to r/o pud, nonulcer dyspepsia, esophagitis other endoscopic findings to account for his symptoms as well as screening colonoscopy. Discussed procedures, rare risks, need for escorted due to anesthesia, it in cardiac history, unclear will get anesthesia consult. Discuss MiraLax Gatorade split prep, literature given. She will have H pylori test if positive we will treat-otherwise pantoprazole 40 mg which has given her fairly good response in the past. Lately, she has had CP, and PVCs. An appt will be set up with Dr. Madrid, at her request. She had repeat mammogram, on 10 August. Stable postoperative and post treatment related changes to the left breast, with no new findings suspicious for malignancy. No suspicious findings right breast. Recommend continuing yearly mammography of both breasts to establish a 3 year post operative stability of the left breast. l checked a bone density at the same time. This revealed: 1. DIAGNOSIS: Osteopenia based on the lowest T-score value of -1.2 in the femoral neck applying World Health Organization criteria. 2. 10-YEAR FRACTURE RISK PREDICTION, FRAX: Major osteoporotic fracture (clinical spine, forearm, hip or shoulder) 4.0%. Hip fracture 0.4%. Ca 27.: 20. She was seen in the ED on 08/22. Narrative: Patient with chronic recurrent epigastric pain had an ultrasound done in 12/17 which was negative. Pain is constant epigastric areas patient for last 3 months no relation with food no nausea no vomiting nose weight loss. Patient does have a strong family history of breast cancer. Also history of pancreatic cancer in her cousins but patient's previous CT scan on 12/[address] scan of the abdomen pelvis revealed: 1. Multiple new peripherally enhancing hepatic lesions, most concerning for metastatic disease. 2. A 1.5 cm hypoattenuating soft tissue focus along the cephalad margin of the pancreatic body is new as compared to prior and may correspond to an adjacent enlarged lymph node or a primary pancreatic lesion. 3. A few new pulmonary nodules at the lung bases which are concerning for metastatic disease in the context of the new hepatic lesions. 4. Borderline enlarged retroperitoneal lymph nodes. Database: From 08/22: CBC: WBC 7.8, HGB 14.3, HCT 41.9, PLT 201. CMP: Lytes WNL, BUN 10, AUTOMOTIVE ELECTRICIAN 0.78. LFTs: 0.2/85/37/46. Albumin 4.2. Calcium 9.8. CA 27.29:71. She still has the abdominal pain. The oxycodone is helping. Liver Mets are likely related to the breast cancer. PLAN: I will proceed with further evaluation. Check MRI of the abdomen to further define the pancreatic mass/liver lesions: 1.3x 1.6 x 1.8 cm mass in body of pancreas. No dilatation of pancreatic duct. Numerous enhancing liver metastases. Will check CA 19-9: 18. Will proceed with a PET scan for restaging purposes. She would need biopsy of the liver lesion as well. She would like to go to [place] for further evaluation. Will set up an appointment at [facility]. She will return in a week for a follow-up visit All her questions were answered to her satisfaction. Thank you, CC: Dr. Dutta. Dr. Enriquez. - Time Spent With Patient Time Spent with Patient (in minutes): 30
[2023-08-24 13:49] VITALS: BP 118/75; PULSE 99; O2SAT 97
--- NOTE | 2023-08-24 14:34 | MHC.HEMONC ---
Pt here for port flush and provider visit. Port accessed with blood return noted. Port flushed with heparin and de accessed. Next appointment for port flush scheduled-calendar given
--- NOTE | 2023-08-24 14:58 | MHC.HEMONCMA ---
patient seen today for left bca, vss,labs, following up with provider in 1 week
--- NOTE | 2023-08-25 09:19 | HO.HEMONCPA ---
Addendum entered by Tanya Espinoza 08/31/23 17:18: PA FOR PET/CT SCAN SKULL TO MID THIGH CASE#[id number] APPROVED AFTER PEER TO PEER REVIEW. AUTH#[id number]. Addendum entered by Tanya Espinoza 08/30/23 17:17: PA PENDING FOR PET/CT SCAN SKULL T MED THIGH CASE #[id number] DENIED. PROVIDER NOTOFIED OF DECISION. Original Note: PA PENDING FOR PET/CT SCAN SKULL T MED THIGH CASE # [id number] AWAITING DECISION FROM JADIEL ALVARADO
--- NOTE | 2023-08-25 11:09 | MHC.HEMONC ---
OnLine referral made to [facility] - Dr Werner Crooks per request of Dr Torres.
[2023-08-30 12:58] LABS: Carbohydrate Antigen 19-9 18 U/mL (<34)
[2023-08-31 14:41] VITALS: BP 122/81; PULSE 95; RESP 17; TEMP 36.4; O2SAT 98
--- NOTE | 2023-08-31 14:47 | P.PNHO-ONC_ITS ---
Medical Summary - Medical Summary Date of Service: 08/31/23 Chief complaint: Follow-up for: Metastatic breast cancer. Primary Care Provider: Carlyn Enriquez MD Medical Summary: DIAGNOSIS: LEFT BREAST CANCER UPPER OUTER QUADRANT. CURRENT THERAPY: STATUS POST LUMPECTOMY ON 04/29/21. Pathology revealed: Invasive ductal carcinoma, high grade, 3 cm, with small satellite nodules x2 approximately 0.1 cm. DCIS nuclear grade 3 with comedonecrosis and calcifications. No lymphovascular invasion. Margins negative for invasive and in-situ ductal carcinoma, however invasive ductal carcinoma is less than 0.1 cm to the posterior margin and approximately 0.1 cm to the medial and lateral margins. Re-excision negative. ER negative/CO negative and HER2 Vonda negative. Three sentinel nodes were negative. Recieved weekly carboplatin Taxol based chemotherapy. Cycle 1 on 06/03/21. Completed Cycle 6, day 15, on November 04. Interval History Interval history: Marah Rivera is a pleasant 46 year old lady, here for a follow-up visit. She still has pain in her upper abdomen radiating into the sides. She wakes up in the middle of the night with a 10/10 pain. She it is a deep sleeper. She has been taking oxycodone 5 mg every 6 hours as needed. She feels rather fatigued. No fever nor chills. She denies headaches. Occasional dizziness. She gets short of breath on exertion. Echocardiogram: normal LVEF. Appetite is not too good. Weight is stable. She denies frequency of micturition. She gets generalized aches and pains. She has been trying to stay active. She has anxiety and depression. Rest of the ROS is normal. INTERIM HISTORY: She was seen in the ED on 08/22. Narrative: Patient with chronic recurrent epigastric pain had an ultrasound done in 12/17 which was negative. Pain is constant epigastric areas patient for last 3 months no relation with food no nausea no vomiting nose weight loss. Patient does have a strong family history of breast cancer. Also history of pancreatic cancer in her cousins but patient's previous CT scan on 12/[address] scan of the abdomen pelvis revealed: 1. Multiple new peripherally enhancing hepatic lesions, most concerning for metastatic disease. 2. A 1.5 cm hypoattenuating soft tissue focus along the cephalad margin of the pancreatic body is new as compared to prior and may correspond to an adjacent enlarged lymph node or a primary pancreatic lesion. 3. A few new pulmonary nodules at the lung bases which are concerning for metastatic disease in the context of the new hepatic lesions. 4. Borderline enlarged retroperitoneal lymph nodes. She has not been feeling well, over the past couple of weeks. She has noticed upper abdominal pain. This fluctuates but becomes intense at times. It was a level 9 when she went to the ED. she has nausea. She was given oxycodone. She has been taking a couple a day. It is helping. Her bowels a fluctuating sometimes normal and sometimes diarrhea like. RECENT HISTORY: She was actually seen in the ED on 12/19. The note: 47-year-old female who presents emergency department for evaluation of right- sided abdominal pain. She states that approximately 2-3 weeks prior she was having very bad heartburn and was using Tums frequently. She states that over the last 1 and half weeks she has been having constant, right-sided abdominal pain. She points to her right upper quadrant area when asked to localize the pain. She states the pain was a constant dull pain. She did have an outpatient ultrasound done on 12/18/2022 which revealed no evidence of cholecystitis or cholelithiasis. She states that last night around 19:00 hours she ate a hot dog. At around 22:00 hours the right upper quadrant pain got worse and became a sharp pain. The pain does radiate to her back. She had associated nausea and has been dry heaving. She denied fever, chills, rhinorrhea, sore throat. She states she has had a chronic cough for weeks but she describes attributes this to a smoker's cough. She states that she has had an increase amount of gas and feels bloated. Patient does have a history breast cancer and she states she had a left lumpectomy, complete chemotherapy in October of 2021 and radiation therapy in April of 2022. bloated feeling. Vital signs were normal. Physical exam did reveal moderate right upper quadrant tenderness a mild right lower quadrant tenderness. I ordered the nursing staff to access the patient's Port-A-Cath I ordered a CBC, CMP, PT/INR, PTT, lipase, lactic acid urinalysis, urine test, COVID-[address] scan of the abdomen pelvis with IV contrast. Patient's pain and nausea will be treated with Toradol 15 mg IV and Zofran 4 mg IV. She was also ordered to get normal saline x1 L. The care was turned over to my colleague, Dr. Alannah Lockwood. Differential Diagnosis Differential diagnosis includes but is not limited to cholecystitis, appendicitis, pancreatitis, metastatic disease, gastritis, viral syndrome, esophagitis. CT scan of the abdomen/pelvis revealed: No acute findings identified in the abdomen/pelvis. Ultrasound of the abdomen from 12/18: IMPRESSION: No evidence of cholelithiasis or cholecystitis. Overall increased echogenicity within the liver may be consistent with fatty change. No free fluid She saw her carpet repairer doctor, Dimitris. An ultrasound was done which revealed a cyst in the ovary. She did blood work and reassured her. Interim history: She completed cycle 6, day 15, of Carbo/Taxol weekly on 10/27/21. She came here after a long hiatus. She had some social/mental issues. She was seen in the emergency room on 11/10: Narrative: This is a 46-year-old female was brought in by ambulance. The patient was in her car at [facility] and apparentlywas acting bizarrely therefore personnel at [facility] called the ambulance. Patient herself is not forthcoming with regard to history. She is lying on her side with her hand over her mouth and for his speech is difficult to understand due to it being muffled but her hand. Patient states that her her family has been out to get her. She mentioned something about crisis evaluation. She denies alcohol or drug use. She said she feels that she is very hot. She notes she is being treated for breast cancer. She states she has had low platelets in the past. Patient also notes that she is DNR ?for any number of reasons? The patient appears to be manic, she is shouting at people that walk by in her in the emergency department, she is making bizarre statements such as she is a DNR but she does not have the paperwork and she does not care and wants to . I suspect that the patient has either bipolar disorder schizophrenia and is not taking her medications therefore she is a danger to herself and I am placing her on a Section 12. The patient will be kept in the emergency department until she can be evaluated by our crisis team. The patient refused to let me give her physical exam. At the end of my shift, the patient's care was turned over to my colleague, Dr. Soto. 01/15, she was seen by her primary care doctor Mina: She has history bipolar disorder, recently discharged from [facility] 01/19/2022,admitted for acute john with psychosis. She has history invasive ductal ca of left breast, and diagnosed to have diastolic dysfunction. She states that she is currently being seen by Dr. Trevino at [facility] for her cardiac follow-up, and will be transferred to [facility] for a double mastectomy. Patient states that she needs to be seen by psychiatrist. She was seen and evaluated by our mental health specialist, Rachael, who reviewed her discharge from recent psychiatric admission, and she was reminded that she is already has seen by [facility] a psychiatrist at [facility] and has a follow-up appointment. Patient was given the number to contact her psychiatrist to schedule an appointment. She states that she has been feeling well at present time with no complaints of any chest pain, no suicidal ideations. She is trying to apply for disability, has been denied 4 times. Previous history: 1. She tells me, 1 of her teeth broke while biting into something. She had seen the dentist. She may need to have the tooth removed. 2. She had an abnormal mammogram. This was done on ,02/28 and revealed: Left breast has new mass, posterior upper outer quadrant in area of palpable in measuring 1.7 cm. Ultrasound demonstrated: Heterogenous macro lobulated hypoechoic mass posterior upper outer quadrant measurin.8 and 1.4 time 1.7 cm. Left axillary nodes showing normal fatty hilus and normal color. 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 She had her lumpectomy done on 04/29. She tells me that her surgery went well. The incision does appear to be healing, the open area has closed up. No more drainage. She had a follow-up appointment with Dr. Dutta. 3. Cardiac issues: She has had some cardiac issues. She was seen by Dr. Morse who diagnosed diastolic dysfunction. She went to Dr. Trevino in [place] who did right heart catheterization. He mention some muscular dysfunction/autonomic dysfunction. No treatment was suggested. Clinical trial was offered that she declined. She actually had an appointment with Dr. Brewer. Digital Imaging Technician History: Menarche at 10. She still has her regular periods. Family history: Her mom was diagnosed with breast cancer at 38. She lived for 7 years. of metastatic disease. 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 She is not . She has no children. She smokes half a pack a day. She drinks very little alcohol. Review of Systems - Constitutional Reports system reviewed and no additional complaints, except as documented, Reports fatigue, Reports lack of energy, Reports malaise, Denies anorexia, Denies weight loss - Eyes Reports system reviewed and no additional complaints, except as documented - ENT Reports system reviewed and no additional complaints, except as documented - Cardiovascular Reports system reviewed and no additional complaints, except as documented - Respiratory Reports no additional respiratory complaints - Gastrointestinal Reports system reviewed and no additional complaints, except as documented - Genitourinary Reports no additional female genitourinary complaints - Musculoskeletal Reports system reviewed and no additional complaints, except as documented - Integumentary/Breasts Skin/Breast: Reports no additional skin complaints - Neurologic Reports system reviewed and no additional complaints, except as documented, Reports weakness - Psychiatric Reports system reviewed and no additional complaints, except as documented - Endocrine Reports no additional endocrine complaints - Hematologic/Lymphatic Reports system reviewed and no additional complaints, except as documented - Allergic/Immunologic Reports system reviewed and no additional complaints, except as documented PMFSH Medical History: Medical History (Last Reviewed 08/31/23 @ 14:50 by Kenny Tan RN) Diastolic dysfunction Exertional dyspnea Family history of breast cancer gene mutation in first degree relative Hx of cyst of breast Hx of lipoma Impaired fasting glucose Invasive ductal carcinoma of left breast Skin lesion of left upper extremity Functional capacity: independent ambulation Patient : No Family History: Family History (Last Reviewed 08/31/23 @ 14:50 by Kenny Tan RN) Mother Breast cancer, Onset Age: 38 Father CAD (coronary artery disease) Hyperlipidemia HTN (hypertension) History of cardiac defibrillator placement Pacemaker Family/Other Lymphoma Paternal Grandmother Dementia Sister Substance use disorder Mental health disorder Surgical History: Surgical History (Last Reviewed 08/31/23 @ 14:50 by Kenny Tan RN) Endometriosis History of excision of mass History of lumpectomy of left breast Social History: Social History (Last Reviewed 08/31/23 @ 14:50 by Kenny Tan RN) Living Situation History: Household Members: Family Housing: House Are you a primary child care sitter to a significant other at home: No Do you presently have visiting nurse or other home services: No Tobacco History: Patient Tobacco Use Status: Current everyday Tobacco Tobacco use type: Cigarette Cigarette Packs Per Day: 0.5 e-Cigarette/Vaping Use: Never Used Substance Use History: Substance Use Type: Marijuana Advance Directives: Advance Directives Date on File: 11/26/21 Occupation Assessmet: service: No Current occupational status: unemployed Oncology Screenings - ECOG Performance Status ECOG Performance Status: 0 Home Medications and Allergies Home Medications Medication Instructions Recorded Confirmed Type metoprolol tartrate 25 mg tablet 25 mg PO BID 01/14/21 08/31/23 History nitroglycerin 0.4 mg sublingual 0.4 mg sublingual Q5M PRN Chest 01/14/21 08/31/23 History tablet Pain aripiprazole 10 mg tablet (Abilify) 10 mg PO DAILY psychosis 01/16/22 08/31/23 History hydroxyzine HCl 10 mg PO DAILY PRN Anxiety 02/15/23 08/31/23 History Bacillus coagulans 250 million 250 cell PO DAILY 08/12/23 08/31/23 History cell chewable tablet (Probiotic (B. coagulans)) multivitamin with minerals-folic 0.4 tab PO DAILY 08/12/23 08/31/23 History acid 0.4 mg tablet (One-A-Day Women's 50 Plus) Allergies Allergy/AdvReac Type Severity Reaction Status Date / Time bee pollen [BEE STINGS] Allergy Severe ANAPHYLAXIS Verified 08/24/23 13:47 Penicillins Allergy Intermediate Unknown Verified 08/24/23 13:47 danazol Allergy Unknown hand Verified 08/24/23 13:47 swelling sertraline [Zoloft] AdvReac Unknown increasedi Verified 08/24/23 13:47 rritability codeine AdvReac Unknown nausea Uncoded 08/24/23 13:47 prilosec AdvReac Unknown bloating Uncoded 08/24/23 13:47 Exam Vital signs: Vital Signs Temp 97.6 F 08/31/23 14:41 Pulse 95 08/31/23 14:41 Resp 17 08/31/23 14:41 BP 122/81 08/31/23 14:41 Pulse Ox 98 08/31/23 14:41 O2 Del Method Room Air 08/31/23 14:41 Weight 70.2 kg BMI result Body Mass Index 28.3 - Constitutional Present: mild distress - Routine HEENT Exam Head: Present: normocephalic Eye: Present: normal appearance ENT: Present: mucous membranes moist - Routine Neck Exam Present: full ROM - Routine Respiratory Exam Present: CTAB - Routine Cardiovascular Exam Cardiovascular: Present: RRR, S1, S2. Absent: rubs, S3, S4 - Routine Abdominal Exam Present: normal bowel sounds, nontender. Absent: diminished bowel sounds, organomegaly - Routine Rectal Exam Patient deferred: digital exam - Routine Extremities Exam Absent: tenderness - Routine Back/Spine/Pelvis Exam Back/Spine: Present: full ROM - Routine Skin Exam Present: intact, normal turgor - Routine Neurological Exam Present: alert, oriented X3 - Detailed Neurological Exam: Coma Scale Eye Opening: Spontaneous (4) - Routine Psychiatric Exam Present: normal affect Data - Labs CBC & Chem 7: 02/02/23 11:40 02/02/23 11:40 Assessment and Plan Patient Active problem list reviewed?: Yes (1) Breast cancer of upper-outer quadrant of left female breast Status: Resolved Assessment and plan: This is a pleasant 45-year-old lady with recent diagnosis of left-sided breast cancer upper outer quadrant. 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 Question is about neoadjuvant chemotherapy. Since the tumor size is small less than 2 cm., the nodes appear negative on the ultrasound. Would recommend upfront surgical resection for exact staging. She will need chemotherapy since she is triple negative. I discussed the case with Dr. Dutta, as well. She underwent a lumpectomy with sentinel node dissection. Her pathology revealed: Pathology revealed: Invasive ductal carcinoma, high grade, 3 cm, with small satellite nodules x2 approximately 0.1 cm. DCIS nuclear grade 3 with comedonecrosis and calcifications. No lymphovascular invasion. Margins negative for invasive and in-situ ductal carcinoma, however invasive ductal carcinoma is less than 0.1 cm to the posterior margin and approximately 0.1 cm to the medial and lateral margins. Re-excision negative. ER negative/CO negative and HER2 Vonda negative. Three sentinel nodes were negative. No lymphovascular invasion. Margins negative for invasive and in-situ ductal carcinoma, however invasive ductal carcinoma is less than 0.1 cm to the posterior margin and approximately 0.1 cm to the medial and lateral margins. Re-excision negative. ER negative/CO negative and HER2 Vonda negative. Three sentinel nodes were negative. She was deemed a candidate for adjuvant chemotherapy, being triple negative. Choices of chemotherapy included dose dense AC x4, followed by Taxol. However she does have a history of cardiac issues with diastolic dysfunction. In the situation I intended to avoid Adriamycin. She had an echocardiogram at [facility] few weeks prior which showed EF of 55%. Recent data suggest benefit of adjuvant carboplatin and Taxol, especially for triple negative disease. She had a Port-A-Cath placed to facilitate the chemotherapy. She got started on 06/03/21. She completed 6 cycles October,, without incident. Subsequently it appears that she had some mental breakdown. There is some history of bipolar disorder. She was inpatient at [facility] for a couple weeks. In November,, she developed COVID. She was at [facility] then transferred to [facility] for another couple weeks for psychiatric admission. It appears now that she is clinically stable. She had an appointment with aerospace engineer officer armament in [place] on February 25. She mentioned that she was considering a double mastectomy. I advised her to just get post lumpectomy radiation. She is concerned about dermatological toxicity related to radiation. She can at least meet with the radiation therapist and have her questions answered. She was referred for post lumpectomy radiation therapy. She preferred to go to [facility]. She finally completed the radiation 6 months ago. She had a mammogram on 08/19/2022 which was benign. Recently, she has had right upper quadrant/epigastric pain Fortunately the imaging is negative. She could have gastritis/ulcer disease. She was referred to GI, for further evaluation including endoscopy. Appointment was for 12/28. She saw Pb Anaya, her note: 47-year-old female multiple comorbidities referred for index screening colonoscopy presents with persistent acid reflux. Schedule EGD to r/o pud, nonulcer dyspepsia, esophagitis other endoscopic findings to account for his symptoms as well as screening colonoscopy. Discussed procedures, rare risks, need for escorted due to anesthesia, it in cardiac history, unclear will get anesthesia consult. Discuss MiraLax Gatorade split prep, literature given. She will have H pylori test if positive we will treat-otherwise pantoprazole 40 mg which has given her fairly good response in the past. Lately, she has had CP, and PVCs. An appt will be set up with Dr. Madrid, at her request. She had repeat mammogram, on 10 August. Stable postoperative and post treatment related changes to the left breast, with no new findings suspicious for malignancy. No suspicious findings right breast. Recommend continuing yearly mammography of both breasts to establish a 3 year post operative stability of the left breast. l checked a bone density at the same time. This revealed: 1. DIAGNOSIS: Osteopenia based on the lowest T-score value of -1.2 in the femoral neck applying World Health Organization criteria. 2. 10-YEAR FRACTURE RISK PREDICTION, FRAX: Major osteoporotic fracture (clinical spine, forearm, hip or shoulder) 4.0%. Hip fracture 0.4%. Ca 27.29: 20. She was seen in the ED on 08/22. Narrative: Patient with chronic recurrent epigastric pain had an ultrasound done in 12/17 which was negative. Pain is constant epigastric areas patient for last 3 months no relation with food no nausea no vomiting nose weight loss. Patient does have a strong family history of breast cancer. Also history of pancreatic cancer in her cousins but patient's previous CT scan on 12/[address] scan of the abdomen pelvis revealed: 1. Multiple new peripherally enhancing hepatic lesions, most concerning for metastatic disease. 2. A 1.5 cm hypoattenuating soft tissue focus along the cephalad margin of the pancreatic body is new as compared to prior and may correspond to an adjacent enlarged lymph node or a primary pancreatic lesion. 3. A few new pulmonary nodules at the lung bases which are concerning for metastatic disease in the context of the new hepatic lesions. 4. Borderline enlarged retroperitoneal lymph nodes. Database: From 08/22: CBC: WBC 7.8, HGB 14.3, HCT 41.9, PLT 201. CMP: Lytes WNL, BUN 10, BEHAVIORAL HEALTH CASE MANAGER 0.78. LFTs: 0.2/85/37/46. Albumin 4.2. Calcium 9.8. CA 27.29: 71. She still has abdominal pain. The oxycodone is helping. Liver Mets are likely related to the breast cancer. I proceeded with further evaluation. 08/24 MRI of the abdomen revealed: 1.3 x 1.6 x 1.8 cm mass in the body of the pancreas. No dilatation of the main pancreatic duct. There are numerous peripherally enhancing hepatic masses. There are enlarged gastrohepatic ligament and retroperitoneal lymph nodes. This likely represents metastatic disease. l checked CA 19-9: 18. PLAN: Will proceed with a PET scan for restaging purposes. It was initially denied however approved after a peer to peer call. She would need biopsy of the liver lesion as well. She would like to go to [place] for further evaluation. We tried to set up an appointment at [facility]. However they would like us to do the biopsy first. Will set it up with IR. She will return in a week for a follow-up visit All her questions were answered to her satisfaction. Thank you, CC: Dr. Dutta. Dr. Enriquez. - Time Spent With Patient Time Spent with Patient (in minutes): 30
--- NOTE | 2023-08-31 15:46 | MHC.HEMONC ---
Notes sent to New Patient Department at [facility]. She has completed her registration.
--- NOTE | 2023-08-31 17:12 | MHC.HEMONC ---
Pt was in today for Onc f/u appt, VSS, no labs drawn, nurse updated pt's clinical summary and med list, pt had MRI done since she was here a week ago, reviewed by Dr. Torres. Pt has not been able to make appt w/ [facility] yet, Dr. Torres was informed. Pt said her epigastric pain continues to bother her, keeps her up at night. Dr. Torres was informed, sent new scrip so pt may take oxy 5 mg PO Q4h instead of Q6H. Pt received d/c packet.
--- NOTE | 2023-09-01 08:46 | HO.HEMONCSCH ---
Sent orders for PET/CT Scan Skull to Thigh [id number] to [facility] for Scheduling
--- NOTE | 2023-09-10 13:40 | MHC.HEMONC ---
I gave patient appointment with Dr John Perez at [address] (10th floor). Appt is Wednesday09/20/23 at 3:30 pm. (P) [phone] and F) [phone]
--- NOTE | 2023-09-13 10:32 | HO.HEMONCSCH ---
Addendum entered by Marie Becerra 09/13/23 14:01: Patient scheduled with [facility] on Thursday, September 14, 2023 at 11:45am; Original Note: [facility] called tried to reach patient to schedule scan 4x with no response. I was able to reach patient and gave her their contact information and she stated she will call them to schedule this appointment.
--- NOTE | 2023-09-15 15:56 | MHC.HEMONC ---
Pt called to request new scrip for oxycodone 5mg cap PO Q4H PRN to be sent to [facility] [place]. Nurse gave request to covering provider, Dr. Dodd, who sent scrip to pt's pharmacy. Nurse called [facility] and confirmed scrip was ready for supervisor opening and picking.
[2023-09-21 14:45] VITALS: BP 105/63; PULSE 88; O2SAT 99; BMI 29.0
--- NOTE | 2023-09-21 14:49 | PM.HEMONCPN ---
Medical Summary - Medical Summary Date of Service: 09/21/23 Chief complaint: Follow-up for: 1. Metastatic pancreatic carcinoma. 2. H/O breast cancer Primary Care Provider: Carlyn Enriquez MD Medical Summary: DIAGNOSIS: LEFT BREAST CANCER UPPER OUTER QUADRANT. CURRENT THERAPY: STATUS POST LUMPECTOMY ON 04/29/21. Pathology revealed: Invasive ductal carcinoma, high grade, 3 cm, with small satellite nodules x2 approximately 0.1 cm. DCIS nuclear grade 3 with comedonecrosis and calcifications. No lymphovascular invasion. Margins negative for invasive and in-situ ductal carcinoma, however invasive ductal carcinoma is less than 0.1 cm to the posterior margin and approximately 0.1 cm to the medial and lateral margins. Re-excision negative. ER negative/ID negative and HER2 Vonda negative. Three sentinel nodes were negative. Recieved weekly carboplatin Taxol based chemotherapy. Cycle 1 on 06/03/21. Completed Cycle 6, day 15, on November 04. Now with metastatic pancreatic carcinoma with liver metastases. Interval History Interval history: Marah Rivera is a pleasant 47 year old lady, here for a follow-up visit. She underwent a biopsy of the liver lesion on 09/06. Unfortunately it revealed: Poorly differentiated carcinoma. Morphologic and immunophenotypic features are consistent with pancreatic primary. She was seen by Dr. Landry Perez, at [facility], yesterday. She has had pain in her upper abdomen radiating into the sides. Sometimes she wakes up in the middle of the night with severe pain. She has been taking oxycodone 5 mg every 4 hours as needed. She takes 2 before she goes to bed. She may need to take 1 in the middle of the night. She feels quite fatigued. When she feels active, she overdoes it. Then she gets tired. She does take a couple of naps a day. No fever nor chills. She denies headaches. Occasional dizziness. She gets short of breath on exertion. Echocardiogram: normal LVEF. Appetite is not too good. She has lost 10 lbs of weight. She denies frequency of micturition. She gets generalized aches and pains. She has been trying to stay active. She has anxiety and depression. Rest of the ROS is normal. INTERIM HISTORY: She was seen in the ED on 08/22. Narrative: Patient with chronic recurrent epigastric pain had an ultrasound done in 12/17 which was negative. Pain is constant epigastric areas patient for last 3 months no relation with food no nausea no vomiting nose weight loss. Patient does have a strong family history of breast cancer. Also history of pancreatic cancer in her cousins but patient's previous CT scan on 12/[address] scan of the abdomen pelvis revealed: 1. Multiple new peripherally enhancing hepatic lesions, most concerning for metastatic disease. 2. A 1.5 cm hypoattenuating soft tissue focus along the cephalad margin of the pancreatic body is new as compared to prior and may correspond to an adjacent enlarged lymph node or a primary pancreatic lesion. 3. A few new pulmonary nodules at the lung bases which are concerning for metastatic disease in the context of the new hepatic lesions. 4. Borderline enlarged retroperitoneal lymph nodes. She has not been feeling well, over the past couple of weeks. She has noticed upper abdominal pain. This fluctuates but becomes intense at times. It was a level 9 when she went to the ED. she has nausea. She was given oxycodone. She has been taking a couple a day. It is helping. Her bowels a fluctuating sometimes normal and sometimes diarrhea like. RECENT HISTORY: She was actually seen in the ED on 12/19. The note: 47-year-old female who presents emergency department for evaluation of right-sided abdominal pain. She states that approximately 2-3 weeks prior she was having very bad heartburn and was using Tums frequently. She states that over the last 1 and half weeks she has been having constant, right-sided abdominal pain. She points to her right upper quadrant area when asked to localize the pain. She states the pain was a constant dull pain. She did have an outpatient ultrasound done on 12/18/2022 which revealed no evidence of cholecystitis or cholelithiasis. She states that last night around 19:00 hours she ate a hot dog. At around 22:00 hours the right upper quadrant pain got worse and became a sharp pain. The pain does radiate to her back. She had associated nausea and has been dry heaving. She denied fever, chills, rhinorrhea, sore throat. She states she has had a chronic cough for weeks but she describes attributes this to a smoker's cough. She states that she has had an increase amount of gas and feels bloated. Patient does have a history breast cancer and she states she had a left lumpectomy, complete chemotherapy in October of 2021 and radiation therapy in April of 2022. bloated feeling. Vital signs were normal. Physical exam did reveal moderate right upper quadrant tenderness a mild right lower quadrant tenderness. I ordered the nursing staff to access the patient's Port-A-Cath I ordered a CBC, CMP, PT/INR, PTT, lipase, lactic acid urinalysis, urine test, COVID-[address] scan of the abdomen pelvis with IV contrast. Patient's pain and nausea will be treated with Toradol 15 mg IV and Zofran 4 mg IV. She was also ordered to get normal saline x1 L. The care was turned over to my colleague, Dr. Alannah Lockwood. Differential Diagnosis Differential diagnosis includes but is not limited to cholecystitis, appendicitis, pancreatitis, metastatic disease, gastritis, viral syndrome, esophagitis. CT scan of the abdomen/pelvis revealed: No acute findings identified in the abdomen/pelvis. Ultrasound of the abdomen from 12/18: IMPRESSION: No evidence of cholelithiasis or cholecystitis. Overall increased echogenicity within the liver may be consistent with fatty change. No free fluid She saw her metal template maker doctor, Dimitris. An ultrasound was done which revealed a cyst in the ovary. She did blood work and reassured her. Interim history: She completed cycle 6, day 15, of Carbo/Taxol weekly on 10/27/21. She came here after a long hiatus. She had some social/mental issues. She was seen in the emergency room on 11/10: Narrative: This is a 46-year-old female was brought in by ambulance. The patient was in her car at [facility] and apparentlywas acting bizarrely therefore personnel at [facility] called the ambulance. Patient herself is not forthcoming with regard to history. She is lying on her side with her hand over her mouth and for his speech is difficult to understand due to it being muffled but her hand. Patient states that her her family has been out to get her. She mentioned something about crisis evaluation. She denies alcohol or drug use. She said she feels that she is very hot. She notes she is being treated for breast cancer. She states she has had low platelets in the past. Patient also notes that she is DNR ?for any number of reasons? The patient appears to be manic, she is shouting at people that walk by in her in the emergency department, she is making bizarre statements such as she is a DNR but she does not have the paperwork and she does not care and wants to . I suspect that the patient has either bipolar disorder schizophrenia and is not taking her medications therefore she is a danger to herself and I am placing her on a Section 12. The patient will be kept in the emergency department until she can be evaluated by our crisis team. The patient refused to let me give her physical exam. At the end of my shift, the patient's care was turned over to my colleague, Dr. Soto. 01/15, she was seen by her primary care doctor Mina: She has history bipolar disorder, recently discharged from [facility] 01/19/2022,admitted for acute john with psychosis. She has history invasive ductal ca of left breast, and diagnosed to have diastolic dysfunction. She states that she is currently being seen by Dr. Trevino at [facility] for her cardiac follow-up, and will be transferred to [facility] for a double mastectomy. Patient states that she needs to be seen by psychiatrist. She was seen and evaluated by our mental health specialist, Rachael, who reviewed her discharge from recent psychiatric admission, and she was reminded that she is already has seen by [facility] a psychiatrist at [place] and has a follow-up appointment. Patient was given the number to contact her psychiatrist to schedule an appointment. She states that she has been feeling well at present time with no complaints of any chest pain, no suicidal ideations. She is trying to apply for disability, has been denied 4 times. Previous history: 1. She tells me, 1 of her teeth broke while biting into something. She had seen the dentist. She may need to have the tooth removed. 2. She had an abnormal mammogram. This was done on ,02/28 and revealed: Left breast has new mass, posterior upper outer quadrant in area of palpable in measuring 1.7 cm. Ultrasound demonstrated: Heterogenous macro lobulated hypoechoic mass posterior upper outer quadrant measurin.8 and 1.4 time 1.7 cm. Left axillary nodes showing normal fatty hilus and normal color. 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 She had her lumpectomy done on 04/29. She tells me that her surgery went well. The incision does appear to be healing, the open area has closed up. No more drainage. She had a follow-up appointment with Dr. Dutta. 3. Cardiac issues: She has had some cardiac issues. She was seen by Dr. Morse who diagnosed diastolic dysfunction. She went to Dr. Trevino in [place] who did right heart catheterization. He mention some muscular dysfunction/autonomic dysfunction. No treatment was suggested. Clinical trial was offered that she declined. She actually had an appointment with Dr. Brewer. Horse Identifier History: Menarche at 10. She still has her regular periods. Family history: Her mom was diagnosed with breast cancer at 38. She lived for 7 years. of metastatic disease. 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 She is not . She has no children. She smokes half a pack a day. She drinks very little alcohol. Review of Systems - Constitutional Reports system reviewed and no additional complaints, except as documented, Reports lack of energy, Reports malaise, Reports weakness, Reports weight loss, Denies fever(s), Denies headache(s), Denies increased appetite - Eyes Reports system reviewed and no additional complaints, except as documented - ENT Reports system reviewed and no additional complaints, except as documented - Cardiovascular Reports system reviewed and no additional complaints, except as documented - Respiratory Reports no additional respiratory complaints - Gastrointestinal Reports system reviewed and no additional complaints, except as documented - Genitourinary Reports no additional female genitourinary complaints - Musculoskeletal Reports system reviewed and no additional complaints, except as documented - Integumentary/Breasts Skin/Breast: Reports no additional skin complaints - Neurologic Reports system reviewed and no additional complaints, except as documented, Reports weakness - Psychiatric Reports system reviewed and no additional complaints, except as documented - Endocrine Reports no additional endocrine complaints - Hematologic/Lymphatic Reports system reviewed and no additional complaints, except as documented - Allergic/Immunologic Reports system reviewed and no additional complaints, except as documented PMFSH Medical History: Medical History (Last Reviewed 09/21/23 @ 14:44 by Helen Espinosa) Diastolic dysfunction Exertional dyspnea Family history of breast cancer gene mutation in first degree relative Hx of cyst of breast Hx of lipoma Impaired fasting glucose Invasive ductal carcinoma of left breast Skin lesion of left upper extremity Functional capacity: independent ambulation Patient : No Family History: Family History (Last Reviewed 09/21/23 @ 14:44 by Helen Espinosa) Mother Breast cancer, Onset Age: 38 Father CAD (coronary artery disease) Hyperlipidemia HTN (hypertension) History of cardiac defibrillator placement Pacemaker Family/Other Lymphoma Paternal Grandmother Dementia Sister Substance use disorder Mental health disorder Surgical History: Surgical History (Last Reviewed 09/21/23 @ 14:44 by Helen Espinosa) Endometriosis History of excision of mass History of lumpectomy of left breast Social History: Social History (Last Reviewed 09/21/23 @ 14:44 by Helen Espinosa) Living Situation History: Household Members: Family Housing: House Are you a primary direct care professional to a significant other at home: No Do you presently have visiting nurse or other home services: No Alcohol History Details: 1. How often do you have a drink containing alcohol?: b. Monthly or less 2. How many drinks containing alcohol do you have on a typical day when you are drinking?: a. 1 or 2 Tobacco History: Patient Tobacco Use Status: Current everyday Tobacco Tobacco use type: Cigarette Cigarette Packs Per Day: 0.5 Cigarettes Per Day: 10.0 e-Cigarette/Vaping Use: Never Used Substance Use History: Use of substances other than those prescribed or required for medical reasons: No Substance Use Type: Marijuana Domestic Abuse History: Have you been hit, kicked, punched, or otherwise hurt by someone within the past year? If so, by whom?: No Do you feel safe in your current relationship?: Yes Advance Directives: Advance Directives Date on File: 11/26/21 Homicidal Assessment: Do you have thoughts of harming others: None Do you have a plan to hurt others: No Plan Do you have the means to hurt others: No Nutrition Assessment: Recently lost weight without trying: No Eating poorly because of decreased appetite: No Patient : No Occupation Assessmet: service: No Current occupational status: unemployed Oncology Screenings - ECOG Performance Status ECOG Performance Status: 0 Home Medications and Allergies Home Medications Medication Instructions Recorded Confirmed Type metoprolol tartrate 25 mg tablet 25 mg PO BID 01/14/21 09/21/23 History nitroglycerin 0.4 mg sublingual 0.4 mg sublingual Q5M PRN Chest 01/14/21 09/21/23 History tablet Pain aripiprazole 10 mg tablet (Abilify) 10 mg PO DAILY psychosis 01/16/22 09/21/23 History hydroxyzine HCl 10 mg PO DAILY PRN Anxiety 02/15/23 09/21/23 History Bacillus coagulans 250 million 250 cell PO DAILY 08/12/23 09/21/23 History cell chewable tablet (Probiotic (B. coagulans)) multivitamin with minerals-folic 0.4 tab PO DAILY 08/12/23 09/21/23 History acid 0.4 mg tablet (One-A-Day Women's 50 Plus) Allergies Allergy/AdvReac Type Severity Reaction Status Date / Time bee pollen [BEE STINGS] Allergy Severe ANAPHYLAXIS Verified 09/21/23 14:44 Penicillins Allergy Intermediate Unknown Verified 09/21/23 14:44 danazol Allergy Unknown hand Verified 09/21/23 14:44 swelling sertraline [Zoloft] AdvReac Unknown increasedi Verified 09/21/23 14:44 rritability codeine AdvReac Unknown nausea Uncoded 09/21/23 14:44 prilosec AdvReac Unknown bloating Uncoded 09/21/23 14:44 Exam Vital signs: Vital Signs Temp 97.6 F 08/31/23 14:41 Pulse 88 09/21/23 14:45 Resp 17 08/31/23 14:41 BP 105/63 09/21/23 14:45 Pulse Ox 99 09/21/23 14:45 O2 Del Method Room Air 09/21/23 14:45 Intake & Output 09/20/23 09/21/23 09/21/23 18:59 06:59 18:59 Other: Weight 71.9 kg Welcome Weight in Grams [id number] Weight 71.9 kg BMI result Body Mass Index 29.0 - Constitutional Present: mild distress - Routine HEENT Exam Head: Present: normocephalic Eye: Present: normal appearance ENT: Present: mucous membranes moist - Routine Neck Exam Present: full ROM - Routine Respiratory Exam Present: CTAB - Routine Cardiovascular Exam Cardiovascular: Present: RRR, S1, S2. Absent: rubs, S3, S4 - Routine Abdominal Exam Present: normal bowel sounds, nontender. Absent: diminished bowel sounds, organomegaly - Routine Rectal Exam Patient deferred: digital exam - Routine Extremities Exam Absent: tenderness - Routine Back/Spine/Pelvis Exam Back/Spine: Present: full ROM - Routine Skin Exam Present: intact, normal turgor - Routine Neurological Exam Present: alert, oriented X3 - Detailed Neurological Exam: Coma Scale Eye Opening: Spontaneous (4) - Routine Psychiatric Exam Present: normal affect Data - Labs CBC & Chem 7: 02/02/23 11:40 02/02/23 11:40 Assessment and Plan Patient Active problem list reviewed?: Yes (1) Breast cancer of upper-outer quadrant of left female breast Status: Resolved Assessment and plan: This is a pleasant 45-year-old lady with recent diagnosis of left-sided breast cancer upper outer quadrant. 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 Question is about neoadjuvant chemotherapy. Since the tumor size is small less than 2 cm., the nodes appear negative on the ultrasound. Would recommend upfront surgical resection for exact staging. She will need chemotherapy since she is triple negative. I discussed the case with Dr. Dutta, as well. She underwent a lumpectomy with sentinel node dissection. Her pathology revealed: Pathology revealed: Invasive ductal carcinoma, high grade, 3 cm, with small satellite nodules x2 approximately 0.1 cm. DCIS nuclear grade 3 with comedonecrosis and calcifications. No lymphovascular invasion. Margins negative for invasive and in-situ ductal carcinoma, however invasive ductal carcinoma is less than 0.1 cm to the posterior margin and approximately 0.1 cm to the medial and lateral margins. Re-excision negative. ER negative/ID negative and HER2 Vonda negative. Three sentinel nodes were negative. No lymphovascular invasion. Margins negative for invasive and in-situ ductal carcinoma, however invasive ductal carcinoma is less than 0.1 cm to the posterior margin and approximately 0.1 cm to the medial and lateral margins. Re-excision negative. ER negative/ID negative and HER2 Vonda negative. Three sentinel nodes were negative. She was deemed a candidate for adjuvant chemotherapy, being triple negative. Choices of chemotherapy included dose dense AC x4, followed by Taxol. However she does have a history of cardiac issues with diastolic dysfunction. In the situation I intended to avoid Adriamycin. She had an echocardiogram at [facility] few weeks prior which showed EF of 55%. Recent data suggest benefit of adjuvant carboplatin and Taxol, especially for triple negative disease. She had a Port-A-Cath placed to facilitate the chemotherapy. She got started on 06/03/21. She completed 6 cycles October,, without incident. Subsequently it appears that she had some mental breakdown. There is some history of bipolar disorder. She was inpatient at [facility] for a couple weeks. In November,, she developed COVID. She was at [facility] then transferred to [facility] for another couple weeks for psychiatric admission. It appears now that she is clinically stable. She had an appointment with manager event in [place] on February 25. She mentioned that she was considering a double mastectomy. I advised her to just get post lumpectomy radiation. She is concerned about dermatological toxicity related to radiation. She can at least meet with the radiation therapist and have her questions answered. She was referred for post lumpectomy radiation therapy. She preferred to go to [facility]. She finally completed the radiation 6 months ago. She had a mammogram on 08/19/2022 which was benign. Recently, she has had right upper quadrant/epigastric pain Fortunately the imaging is negative. She could have gastritis/ulcer disease. She was referred to GI, for further evaluation including endoscopy. Appointment was for 12/28. She saw Pb Anaya, her note: 47-year-old female multiple comorbidities referred for index screening colonoscopy presents with persistent acid reflux. Schedule EGD to r/o pud, nonulcer dyspepsia, esophagitis other endoscopic findings to account for his symptoms as well as screening colonoscopy. Discussed procedures, rare risks, need for escorted due to anesthesia, it in cardiac history, unclear will get anesthesia consult. Discuss MiraLax Gatorade split prep, literature given. She will have H pylori test if positive we will treat-otherwise pantoprazole 40 mg which has given her fairly good response in the past. Lately, she has had CP, and PVCs. An appt will be set up with Dr. Madrid, at her request. She had repeat mammogram, on 10 August. Stable postoperative and post treatment related changes to the left breast, with no new findings suspicious for malignancy. No suspicious findings right breast. Recommend continuing yearly mammography of both breasts to establish a 3 year post operative stability of the left breast. l checked a bone density at the same time. This revealed: 1. DIAGNOSIS: Osteopenia based on the lowest T-score value of -1.2 in the femoral neck applying World Health Organization criteria. 2. 10-YEAR FRACTURE RISK PREDICTION, FRAX: Major osteoporotic fracture (clinical spine, forearm, hip or shoulder) 4.0%. Hip fracture 0.4%. Ca 27.29: 20. She was seen in the ED on 08/22. Narrative: Patient with chronic recurrent epigastric pain had an ultrasound done in 12/17 which was negative. Pain is constant epigastric areas patient for last 3 months no relation with food no nausea no vomiting nose weight loss. Patient does have a strong family history of breast cancer. Also history of pancreatic cancer in her cousins but patient's previous CT scan on 12/[address] scan of the abdomen pelvis revealed: 1. Multiple new peripherally enhancing hepatic lesions, most concerning for metastatic disease. 2. A 1.5 cm hypoattenuating soft tissue focus along the cephalad margin of the pancreatic body is new as compared to prior and may correspond to an adjacent enlarged lymph node or a primary pancreatic lesion. 3. A few new pulmonary nodules at the lung bases which are concerning for metastatic disease in the context of the new hepatic lesions. 4. Borderline enlarged retroperitoneal lymph nodes. Database: From 08/22: CBC: WBC 7.8, HGB 14.3, HCT 41.9, PLT 201. CMP: Lytes WNL, BUN 10, TEMPORARY STAFF ACCOUNTANT 0.78. LFTs: 0.2/85/37/46. Albumin 4.2. Calcium 9.8. CA 27.29: 71. She still has abdominal pain. The oxycodone is helping. Liver Mets are likely related to the breast cancer. I proceeded with further evaluation. 08/24 MRI of the abdomen revealed: 1.3 x 1.6 x 1.8 cm mass in the body of the pancreas. No dilatation of the main pancreatic duct. There are numerous peripherally enhancing hepatic masses. There are enlarged gastrohepatic ligament and retroperitoneal lymph nodes. This likely represents metastatic disease. l checked CA 19-9: 18. l proceeded with a PET scan for restaging purposes. She had a biopsy of the liver lesion on 09/06. It revealed: Poorly differentiated carcinoma consistent with pancreatic primary. She saw Dr. Landry Perez at [facility] yesterday. PLAN: To proceed with FOLFIRINOX based palliative chemotherapy. She underwent chemotherapy teaching today. We have requested for prior authorization for the drugs. Will get her started hopefully by next Wednesday. She will have the treatment every 2 weeks. Will re-stage her with imaging after 2 cycles. She will return in a week to get started on the treatment and for a follow-up visit All her and her sister's questions were answered to her satisfaction. Thank you, CC: Dr. Dutta. Dr. Enriquez. - Time Spent With Patient Time Spent with Patient (in minutes): 30
--- NOTE | 2023-09-21 15:40 | MHC.HEMONC ---
Pt here for follow up wit Dr Torres. Consent for chemotherapy with Folfirinox obtained. Written literature on Oxaliplatin, Leucovorin, Irinotecan, 5 Fu given along with chemo treatment plan. Official chemo teach scheduled for C1D1 of chemo therapy on 09/28/23. Marie Becerra to obtain PA. Pt has a port. Post chemo medication to be ordered by Dr Torres. Pharmacy notified.
--- NOTE | 2023-09-22 11:54 | HO.HEMONCPA ---
Addendum entered by Marie Becerra 09/23/23 13:09: NO PA REQUIRED FOR EMEND J1453 NEULASTA J2506 OXALIPLATIN J9263 LEUCOVORIN J0640 IRINOTECAN J9206 FLUOROURACIL J9190 PER [facility] Original Note: PA PENDING FOR EMEND J1453 NEULASTA J2506 OXALIPLATIN J9263 LEUCOVORIN J0640 IRINOTECAN J9206 FLUOROURACIL J9190 AWAITING DECISION FROM [facility] REFERENCE # [id number]
--- NOTE | 2023-09-24 16:50 | MHC.HEMONC ---
Triage call: Patient called requesting prescription for Oxycodone. Order was placed on 09/[address] Torres. Called pharmacy to inquire. This medication was not filled on 09/20 because it was too early according to last prescription sent. Dr. Torres notified. New order placed today for Oxycodone. Called pharmacy to ensure this medication could be refilled now. Pharmacist states it should be ready tonight after 7pm. Instructed patient to call pharmacy before picking up.
--- NOTE | 2023-09-27 08:28 | HO.HEMONCPA ---
[facility] APPROVED FOR CT ABDOMEN, PELVIS AND CHEST WITH CONTRAST CPT 66755 AND [id number] AUTH# [id number] DOS 09/27/23 - 03/25/24
[2023-09-28 08:42] VITALS: BMI 28.2
[2023-09-28 08:51] VITALS: BP 109/76; PULSE 90; RESP 20; TEMP 35.6; O2SAT 98
[2023-09-28] MEDS: Acetaminophen 325 MG TABLET 650 MG PO (08:57)
[2023-09-28] MEDS: Fosaprepitant Dimeglumine 150 MG in 0.9 % Sodium Chloride 145 ML 300 MG IV (08:58)
[2023-09-28] MEDS: Atropine Sulfate 1 MG/ML VIAL 0.5 MG SUBCUT (08:58)
[2023-09-28] MEDS: Famotidine/PF 20 MG/2 ML VIAL IVPUSH (08:58)
[2023-09-28] MEDS: dexAMETHasone sod phosphate/NS 12 MG/50 ML PIGGYBACK 200 MG IV (08:59)
[2023-09-28] MEDS: OXALIplatin 100 MG, OXALIplatin 50 MG in Dextrose 5 % 500 ML 265 MG IV (10:36)
--- NOTE | 2023-09-28 11:43 | MHC.HEMONC ---
pt tolerated first treatment well. chemo teach completed.
[2023-09-28] MEDS: FLUOROURACIL IVCONT (14:20)
[2023-09-28] MEDS: SODIUM CHLORIDE 0.9% IVCONT (14:20)
[2023-09-30] MEDS: Heparin Sodium,Porcine Flush 500 UNIT/5 ML SYRINGE IVFLUSH (14:35)
--- NOTE | 2023-09-30 14:52 | MHC.HEMONC ---
Pt here for chemo pump take down and Neulasta injection. Port flushed with Heparin and de accessed. Neulasta given SC in right arm-tolerated well. No edema or redness at site after injection. Pt instructed to call with any concerns or questions-verbalizes understanding of information given. Pt aware of next appointment
--- NOTE | 2023-10-05 12:36 | MHC.HEMONC ---
Triage call from pt. She states she has had congested cough since treatment last week. She is also c/o severe exhaustion, some nausea. She is asking about having her chemo dose decreased next week. Will talk with Dr Torres. She is also asking to come in for IV hydration. Will come in this afternoon.
[2023-10-05] MEDS: 0.9 % Sodium Chloride 1,000 ML 999 ML IV (15:15)
[2023-10-05 15:29] VITALS: BP 105/65; PULSE 91; RESP 18; TEMP 36.3; O2SAT 100
--- NOTE | 2023-10-05 15:54 | MHC.HEMONC ---
Triage call-pt called stating she has feel awful since last chemotherapy treatment. Agreeable to come to department for IV fluids. Pt present in department stating chemotherapy was extremely strong and she does not believe she can continue if chemotherapy is this strong. Dr Torres notified and into see pt-plan to decrease dose of chemotherapy to 75%-pt notified. Port accessed with no blood return noted at this time. 1000 ml 0.9% NS infused as ordered. COVID/SARS/FLU swab performed as ordered-specimen to lab. Port flushed with heparin and de accessed. COVID/SARS/FLU swab results negative-Dr Torres and pt notified. Pt states she feels a little better after IV hydration
[2023-10-05 16:15] LABS: Influenza A PCR NEGATIVE (Negative); Influenza B PCR NEGATIVE (Negative); Resp Syncy Virus RNA Qual PCR NEGATIVE (Negative); SARS COV2 PCR INHOUSE NEGATIVE (Negative)
--- NOTE | 2023-10-08 12:12 | MHC.HEMONC ---
Triage- Pt called to request a refill of oxycodone. Pt is very low on meds.Msg sent to Dr Torres
[2023-10-11 13:57] LABS: Hematocrit 43.9 % (37.0-47.0); Hemoglobin 14.1 g/dl (12.0-16.0); Mean Corpuscular HGB Conc 32.1 g/dl (31.0-35.0); Mean Corpuscular Hemoglobin 26.6 pg (27.0-33.0); Mean Corpuscular Volume 82.8 fL (80.0-98.0); Mean Platelet Volume 9.3 fL (9.4-12.3); Platelet Count 173 X10*3/uL (160-400); Red Cell Distribution Width 15.1 % (11.0-16.0); White Blood Count 6.5 X10*3/uL (4.8-10.8)
[2023-10-11 14:05] LABS: Alanine Aminotransferase 30 U/L (0-31); Alkaline Phosphatase 105 U/L (39-117); Anion Gap 14 (12-20); Aspartate Amino Transferase 25 U/L (5-31); Bilirubin Total 0.2 mg/dL (0.0-1.0); Blood Urea Nitrogen 11 mg/dL (9-16); Calcium 9.3 mg/dL (8.4-10.2); Carbon Dioxide 24 mmol/L (22-29); Chloride 108 mmol/L (96-108); Creatinine Clr Calc Pharmacy 82.2; Estimated Glomerular Filt Rate > 60; Glucose Random 117 mg/dL (60-115); Magnesium 2.2 mg/dL (1.6-2.6); Sodium 142 mmol/L (135-145); Total Protein 7.1 g/dL (6.5-8.0)
--- NOTE | 2023-10-11 14:15 | MHC.HEMONC ---
Pt here for lab draw. Blood drawn by application integration engineer-specimen to lab
[2023-10-11 15:08] LABS: Band Neutrophils Percent 7 % (3-5); Eosinophils Absolute Manual 0.3 X10*3/uL (0.0-0.4); Eosinophils Percent Manual 4 % (0-4); Lymphocytes Absolute Manual 1.4 X10*3/uL (1.2-4.9); Lymphocytes Percent Manual 22 % (20-40); Metamyelocytes Absolute 0.1 X10*3/uL; Metamyelocytes Percent 1 %; Monocytes Absolute Manual 0.3 X10*3/uL (0.1-1.2); Monocytes Percent Manual 5 % (2-11); Myelocytes Absolute 0.1 X10*/uL; Myelocytes Percent 2 %; Neutrophils Absolute Manual 4.2 X10*3/uL (2.0-8.3); Neutrophils Percent Manual 58 % (45-73); Promyelocytes Absolute 0.1 X10*3/uL; Promyelocytes Percent 1 %; RBC Morphology NORMAL
[2023-10-11 15:09] LABS: Platelet Estimate NORMAL (NORMAL); Platelet Morphology Comment NORMAL
[2023-10-12 04:45] LABS: HBS Num1 > 1000.00 mIU/mL (0-7.99); HBc Num1 0.07 S/CO (0.00-0.79); HBsAGNum1 0.34 S/CO (0.00-0.99); Hepatitis B Core Antibody Nonreactive (Nonreactive); Hepatitis B Surface Antigen Negative (Negative); ~Hepatitis B Surface Antibody REACTIVE (Nonreactive)
[2023-10-12 10:29] VITALS: BP 171/67; PULSE 85; RESP 18; TEMP 36.3; O2SAT 99; BMI 27.5
[2023-10-12] MEDS: Acetaminophen 325 MG TABLET 650 MG PO (10:48)
[2023-10-12] MEDS: dexAMETHasone sod phosphate/NS 12 MG/50 ML PIGGYBACK 200 MG IV (10:49)
[2023-10-12] MEDS: Famotidine/PF 20 MG/2 ML VIAL IVPUSH (10:49)
[2023-10-12] MEDS: Atropine Sulfate 1 MG/ML VIAL 0.5 MG SUBCUT (10:54)
[2023-10-12] MEDS: Fosaprepitant Dimeglumine 150 MG in 0.9 % Sodium Chloride 145 ML 300 MG IV (12:00)
[2023-10-12] MEDS: Leucovorin Calcium 700 MG in Dextrose 5 % 250 ML 142.5 MG IV (14:11)
--- NOTE | 2023-10-12 14:43 | MHC.HEMONC ---
Pt here for C2D1 FOLFIRINOX. Labs drawn yesterday reviewed-okay to receive treatment today. Pt states she continues with fatigue. States she had nausea and vomiting after last chemotherapy treatment with diarrhea and constipation. States fingers have intermittent tingling. Denies pain today. Port accessed with no blood return noted-pt repositioned with frequent 0.9% NS flushes with continued no blood return-pt has document history of fibrin sheath. Dr Torres aware. Pre medicated with tylenol, dexamethasone, zofran, emend, pepcid, atropine sulfate sc.. Folfirinox given as ordered (75% dose excluding 5FU push and Leucovorin)-tolerated well. Home chemo pump attached as ordered. Discharge packet given with next appointment scheduled. Declines wheelchair for discharge. Instructed to call department with any questions or concerns-verbalizes understanding of information given
[2023-10-14] MEDS: Heparin Sodium,Porcine Flush 500 UNIT/5 ML SYRINGE IVFLUSH (13:35)
--- NOTE | 2023-10-14 15:27 | MHC.HEMONC ---
Here for pump take down. States she tolerated this treatment with decreased dose much better than last. She does state that her vision seemed to be a little fuzzy , but it has resolved. She was instructed to call if worsens. Port flushed with heparin 500units and de-accessed. Neulasta 6mg sc given right arm and tolerated well. She will call 10/19 if she feels like she needs IV hydration. Departed unit.
[2023-10-19 12:18] VITALS: BP 120/80; PULSE 113; RESP 18; TEMP 36.3; O2SAT 99; BMI 27.0
[2023-10-19] MEDS: 0.9 % Sodium Chloride 1,000 ML 999 ML IV (12:20)
--- NOTE | 2023-10-19 15:52 | MHC.HEMONC ---
Pt here for post chemo therapy IV hydration. Pt states she feels poorly with intermittent nausea. Port accessed with blood return noted. 1000ml 09.% NS infused as ordered-tolerated well. Pt states she feels better after IV hydration. Port flushed with heparin and de accessed. Pt aware of next appointment
[2023-10-26 08:15] VITALS: BP 131/67; PULSE 96; RESP 18; TEMP 36.4; O2SAT 97; BMI 27.7
[2023-10-26 08:40] LABS: Hematocrit 39.6 % (37.0-47.0); Hemoglobin 13.6 g/dl (12.0-16.0); Mean Corpuscular HGB Conc 34.3 g/dl (31.0-35.0); Mean Corpuscular Hemoglobin 28.2 pg (27.0-33.0); Mean Platelet Volume 9.4 fL (9.4-12.3); NRBC Pct Auto 0.2 /100WBC (0.0-0.2); Platelet Count 114 X10*3/uL (160-400); Red Blood Count 4.83 X10*6/uL (4.20-5.50); Red Cell Distribution Width 17.2 % (11.0-16.0); White Blood Count 9.5 X10*3/uL (4.8-10.8)
[2023-10-26 09:03] LABS: Alanine Aminotransferase 56 U/L (0-31); Albumin Level 3.9 g/dL (3.5-5.0); Alkaline Phosphatase 126 U/L (39-117); Anion Gap 16 (12-20); Aspartate Amino Transferase 31 U/L (5-31); Bilirubin Total 0.3 mg/dL (0.0-1.0); Blood Urea Nitrogen 14 mg/dL (9-16); Calcium 9.2 mg/dL (8.4-10.2); Carbon Dioxide 19 mmol/L (22-29); Chloride 108 mmol/L (96-108); Creatinine Clr Calc Pharmacy 83.6; Estimated Glomerular Filt Rate > 60; Glucose Random 119 mg/dL (60-115); Sodium 139 mmol/L (135-145); Total Protein 7.3 g/dL (6.5-8.0)
[2023-10-26 09:10] LABS: Band Neutrophils Percent 7 % (3-5); Lymphocytes Absolute Manual 1.7 X10*3/uL (1.2-4.9); Lymphocytes Percent Manual 18 % (20-40); Metamyelocytes Absolute 0.1 X10*3/uL; Metamyelocytes Percent 1 %; Monocytes Percent Manual 10 % (2-11); Myelocytes Absolute 0.1 X10*/uL; Myelocytes Percent 1 %; Neutrophils Absolute Manual 6.7 X10*3/uL (2.0-8.3); Neutrophils Percent Manual 63 % (45-73); Nucleated Red Blood Cells 1 /100WBC (0-0); RBC Morphology NOTED
[2023-10-26 09:13] LABS: Ovalocytes 1+ (5-14) /OIF; Polychromasia 1+ (0-2) /OIF
[2023-10-26 09:14] LABS: Platelet Estimate DECREASED (NORMAL); Platelet Morphology Comment NORMAL
[2023-10-26] MEDS: Acetaminophen 325 MG TABLET 650 MG PO (09:29)
[2023-10-26] MEDS: Atropine Sulfate 1 MG/ML VIAL 0.5 MG SUBCUT (09:30)
[2023-10-26] MEDS: dexAMETHasone sod phosphate/NS 12 MG/50 ML PIGGYBACK 200 MG IV (09:30)
[2023-10-26] MEDS: Famotidine/PF 20 MG/2 ML VIAL IVPUSH (09:30)
--- NOTE | 2023-10-26 09:57 | MHC.HEMONC ---
pt report no need for pain med in a week! pt aware she must call centralized scheduling to schedule ct
[2023-10-26 10:22] LABS: HBS Num1 > 1000.00 mIU/mL (0-7.99); HBc Num1 0.06 S/CO (0.00-0.79); HBsAGNum1 0.24 S/CO (0.00-0.99); Hepatitis B Core Antibody Nonreactive (Nonreactive); Hepatitis B Surface Antigen Negative (Negative); ~Hepatitis B Surface Antibody REACTIVE (Nonreactive)
[2023-10-26] MEDS: Fosaprepitant Dimeglumine 150 MG in 0.9 % Sodium Chloride 145 ML 300 MG IV (10:36)
[2023-10-26] MEDS: Leucovorin Calcium 690 MG in Dextrose 5 % 250 ML 190 MG IV (13:46)
--- NOTE | 2023-10-28 13:53 | MHC.HEMONC ---
Pt here for chemo pump take down. Port flushed with heparin and de accessed. Neulasta injection (no PA required) given sc in right arm-tolerated well. No edema or redness at site after injection. Pt aware of next appointment
[2023-11-02] MEDS: 0.9 % Sodium Chloride 1,000 ML 999 ML IV (14:10)
[2023-11-02 14:16] VITALS: BP 107/76; PULSE 99; RESP 18; TEMP 36.6; O2SAT 99
--- NOTE | 2023-11-02 14:43 | MHC.HEMONC ---
Pt here for post chemo IV hydration. Pt states she felt better this round of chemotherapy. Port accessed with blood return noted. 1000ml 0.9% NS infused. Port flushed with heparin and de accessed. Dr Torres into see pt. Discharge packet with next appointment scheduled
[2023-11-09 08:38] VITALS: BP 105/75; PULSE 107; RESP 18; TEMP 36.6; O2SAT 97; BMI 28.2
[2023-11-09 09:07] LABS: Hemoglobin 13.2 g/dl (12.0-16.0); Mean Corpuscular HGB Conc 33.8 g/dl (31.0-35.0); Mean Corpuscular Hemoglobin 28.5 pg (27.0-33.0); Mean Corpuscular Volume 84.2 fL (80.0-98.0); Mean Platelet Volume 9.5 fL (9.4-12.3); Red Blood Count 4.63 X10*6/uL (4.20-5.50); Red Cell Distribution Width 20.2 % (11.0-16.0); White Blood Count 7.2 X10*3/uL (4.8-10.8)
--- NOTE | 2023-11-09 09:16 | PM.HEMONCPN ---
Medical Summary - Medical Summary Date of Service: 11/09/23 Chief complaint: Follow-up for pancreatic carcinoma. Primary Care Provider: Carlyn Enriquez MD Medical Summary: DIAGNOSIS: LEFT BREAST CANCER UPPER OUTER QUADRANT. CURRENT THERAPY: STATUS POST LUMPECTOMY ON 04/29/21. Pathology revealed: Invasive ductal carcinoma, high grade, 3 cm, with small satellite nodules x2 approximately 0.1 cm. DCIS nuclear grade 3 with comedonecrosis and calcifications. No lymphovascular invasion. Margins negative for invasive and in-situ ductal carcinoma, however invasive ductal carcinoma is less than 0.1 cm to the posterior margin and approximately 0.1 cm to the medial and lateral margins. Re-excision negative. ER negative/LA negative and HER2 Vonda negative. Three sentinel nodes were negative. Recieved weekly carboplatin Taxol based chemotherapy. Cycle 1 on 06/03/21. Completed Cycle 6, day 15, on November 04. Now with metastatic pancreatic carcinoma with liver metastases. Started on FOLFIRINOX 09/28/23. Second dose 10/12. Third dose 10/26/23. Here for 4th dose. Interval History Interval history: Marah Rivera is a pleasant 48 year old lady, here for a follow-up visit. Overall she says she feels pretty good. She had a bout with diarrhea yesterday. Stool was rather liquid. First 5-6 days after chemotherapy are tough for her. She gets nausea and fatigue. She had 4 bouts of vomiting with the last cycle but did not throw up with the most recent one. Second week after chemo she feels more like herself. Her energy level returns and she is able to be more active. She does take a couple of naps a day. Her appetite is better and she eats a lot. Her hair is thinning out. No fever nor chills. She denies headaches. Occasional dizziness. She gets short of breath on exertion. Echocardiogram: normal LVEF. Appetite is not too good. She has lost 15 lbs of weight since the beginning but now it appears to be stabilizing. She denies frequency of micturition. She gets generalized aches and pains. She has been trying to stay active. She is in good spirits. Rest of the ROS is normal. INTERIM HISTORY: She was seen in the ED on 08/22. Narrative: Patient with chronic recurrent epigastric pain had an ultrasound done in 2/23 which was negative. Pain is constant epigastric areas patient for last 3 months no relation with food no nausea no vomiting nose weight loss. Patient does have a strong family history of breast cancer. Also history of pancreatic cancer in her cousins but patient's previous CT scan on 12/[address] scan of the abdomen pelvis revealed: 1. Multiple new peripherally enhancing hepatic lesions, most concerning for metastatic disease. 2. A 1.5 cm hypoattenuating soft tissue focus along the cephalad margin of the pancreatic body is new as compared to prior and may correspond to an adjacent enlarged lymph node or a primary pancreatic lesion. 3. A few new pulmonary nodules at the lung bases which are concerning for metastatic disease in the context of the new hepatic lesions. 4. Borderline enlarged retroperitoneal lymph nodes. She underwent a biopsy of the liver lesion on 09/06. Unfortunately it revealed: Poorly differentiated carcinoma. Morphologic and immunophenotypic features are consistent with pancreatic primary. She was seen by Dr. Landry Perez, at [facility], on 09/20. RECENT HISTORY: She was actually seen in the ED on 12/19/22. The note: 47-year-old female who presents emergency department for evaluation of right-sided abdominal pain. She states that approximately 2-3 weeks prior she was having very bad heartburn and was using Tums frequently. She states that over the last 1 and half weeks she has been having constant, right-sided abdominal pain. She points to her right upper quadrant area when asked to localize the pain. She states the pain was a constant dull pain. She did have an outpatient ultrasound done on 12/18/2022 which revealed no evidence of cholecystitis or cholelithiasis. She states that last night around 19:00 hours she ate a hot dog. At around 22:00 hours the right upper quadrant pain got worse and became a sharp pain. The pain does radiate to her back. She had associated nausea and has been dry heaving. She denied fever, chills, rhinorrhea, sore throat. She states she has had a chronic cough for weeks but she describes attributes this to a smoker's cough. She states that she has had an increase amount of gas and feels bloated. Patient does have a history breast cancer and she states she had a left lumpectomy, complete chemotherapy in October of 2021 and radiation therapy in April of 2022. bloated feeling. Vital signs were normal. Physical exam did reveal moderate right upper quadrant tenderness a mild right lower quadrant tenderness. I ordered the nursing staff to access the patient's Port-A-Cath I ordered a CBC, CMP, PT/INR, PTT, lipase, lactic acid urinalysis, urine test, COVID-[address] scan of the abdomen pelvis with IV contrast. Patient's pain and nausea will be treated with Toradol 15 mg IV and Zofran 4 mg IV. She was also ordered to get normal saline x1 L. The care was turned over to my colleague, Dr. Alannah Lockwood. Differential Diagnosis Differential diagnosis includes but is not limited to cholecystitis, appendicitis, pancreatitis, metastatic disease, gastritis, viral syndrome, esophagitis. CT scan of the abdomen/pelvis revealed: No acute findings identified in the abdomen/pelvis. Ultrasound of the abdomen from 12/18: IMPRESSION: No evidence of cholelithiasis or cholecystitis. Overall increased echogenicity within the liver may be consistent with fatty change. No free fluid She saw her machine attendant doctor, Dimitris. An ultrasound was done which revealed a cyst in the ovary. She did blood work and reassured her. Interim history: She completed cycle 6, day 15, of Carbo/Taxol weekly on 10/27/21. She came here after a long hiatus. She had some social/mental issues. She was seen in the emergency room on 11/10: Narrative: This is a 46-year-old female was brought in by ambulance. The patient was in her car at [facility] and apparentlywas acting bizarrely therefore personnel at [facility] called the ambulance. Patient herself is not forthcoming with regard to history. She is lying on her side with her hand over her mouth and for his speech is difficult to understand due to it being muffled but her hand. Patient states that her her family has been out to get her. She mentioned something about crisis evaluation. She denies alcohol or drug use. She said she feels that she is very hot. She notes she is being treated for breast cancer. She states she has had low platelets in the past. Patient also notes that she is DNR ?for any number of reasons? The patient appears to be manic, she is shouting at people that walk by in her in the emergency department, she is making bizarre statements such as she is a DNR but she does not have the paperwork and she does not care and wants to . I suspect that the patient has either bipolar disorder schizophrenia and is not taking her medications therefore she is a danger to herself and I am placing her on a Section 12. The patient will be kept in the emergency department until she can be evaluated by our crisis team. The patient refused to let me give her physical exam. At the end of my shift, the patient's care was turned over to my colleague, Dr. Soto. 01/15, she was seen by her primary care doctor Mina: She has history bipolar disorder, recently discharged from [facility] 01/19/2022,admitted for acute john with psychosis. She has history invasive ductal ca of left breast, and diagnosed to have diastolic dysfunction. She states that she is currently being seen by Dr. Trevino at [facility] for her cardiac follow-up, and will be transferred to [facility] for a double mastectomy. Patient states that she needs to be seen by psychiatrist. She was seen and evaluated by our mental health specialist, Rachael, who reviewed her discharge from recent psychiatric admission, and she was reminded that she is [facility] at [place] and has a follow-up appointment. Patient was given the number to contact her psychiatrist to schedule an appointment. She states that she has been feeling well at present time with no complaints of any chest pain, no suicidal ideations. She is trying to apply for disability, has been denied 4 times. Previous history: 1. She tells me, 1 of her teeth broke while biting into something. She had seen the dentist. She may need to have the tooth removed. 2. She had an abnormal mammogram. This was done on ,02/28 and revealed: Left breast has new mass, posterior upper outer quadrant in area of palpable in measuring 1.7 cm. Ultrasound demonstrated: Heterogenous macro lobulated hypoechoic mass posterior upper outer quadrant measurin.8 and 1.4 time 1.7 cm. Left axillary nodes showing normal fatty hilus and normal color. 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 She had her lumpectomy done on 04/29. She tells me that her surgery went well. The incision does appear to be healing, the open area has closed up. No more drainage. She had a follow-up appointment with Dr. Dutta. 3. Cardiac issues: She has had some cardiac issues. She was seen by Dr. Morse who diagnosed diastolic dysfunction. She went to Dr. Trevino in [place] who did right heart catheterization. He mention some muscular dysfunction/autonomic dysfunction. No treatment was suggested. Clinical trial was offered that she declined. She actually had an appointment with Dr. Brewer. Client Services Associate History: Menarche at 10. She still has her regular periods. Family history: Her mom was diagnosed with breast cancer at 38. She lived for 7 years. of metastatic disease. 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 She is not . She has no children. She smokes half a pack a day. She drinks very little alcohol. Review of Systems - Constitutional Reports no additional constitutional complaints, Reports fatigue, Denies fever(s), Reports lack of energy, Reports malaise, Reports poor appetite, Reports weight loss - Eyes Reports no additional eye complaints - ENT Reports no additional ear, nose, mouth, and throat complaints - Cardiovascular Reports no additional cardiovascular complaints - Respiratory Reports no additional respiratory complaints - Gastrointestinal Reports no additional gastrointestinal complaints - Genitourinary Reports no additional female genitourinary complaints - Musculoskeletal Reports no additional musculoskeletal complaints - Integumentary/Breasts Skin/Breast: Reports no additional skin complaints - Neurologic Reports no additional neurologic complaints, Denies headache(s), Reports weakness - Psychiatric Reports no additional psychiatric complaints - Endocrine Reports no additional endocrine complaints - Hematologic/Lymphatic Reports no additional hematologic/lymphatic complaints - Allergic/Immunologic Reports no additional allergic/immunologic complaints [facility] Medical History: Medical History (Last Reviewed 09/21/23 @ 14:44 by Helen Espinosa) Diastolic dysfunction Exertional dyspnea Family history of breast cancer gene mutation in first degree relative Hx of cyst of breast Hx of lipoma Impaired fasting glucose Invasive ductal carcinoma of left breast Skin lesion of left upper extremity Functional capacity: independent ambulation Patient : No Family History: Family History (Last Reviewed 09/21/23 @ 14:44 by Helen Espinosa) Mother Breast cancer, Onset Age: 38 Father CAD (coronary artery disease) Hyperlipidemia HTN (hypertension) History of cardiac defibrillator placement Pacemaker Family/Other Lymphoma Paternal Grandmother Dementia Sister Substance use disorder Mental health disorder Surgical History: Surgical History (Last Reviewed 09/21/23 @ 14:44 by Helen Espinosa) Endometriosis History of excision of mass History of lumpectomy of left breast Social History: Social History (Last Reviewed 09/21/23 @ 14:44 by Helen Espinosa) Living Situation History: Household Members: Family Housing: House Are you a primary healthcare or medical to a significant other at home: No Do you presently have visiting nurse or other home services: No Alcohol History Details: 1. How often do you have a drink containing alcohol?: b. Monthly or less 2. How many drinks containing alcohol do you have on a typical day when you are drinking?: a. 1 or 2 Tobacco History: Patient Tobacco Use Status: Current everyday Tobacco Tobacco use type: Cigarette Cigarette Packs Per Day: 0.5 e-Cigarette/Vaping Use: Never Used Substance Use History: Use of substances other than those prescribed or required for medical reasons: No Substance Use Type: Marijuana Domestic Abuse History: Have you been hit, kicked, punched, or otherwise hurt by someone within the past year? If so, by whom?: No Do you feel safe in your current relationship?: Yes Advance Directives: Advance Directives Date on File: 11/26/21 Homicidal Assessment: Do you have thoughts of harming others: None Do you have a plan to hurt others: No Plan Do you have the means to hurt others: No Nutrition Assessment: Recently lost weight without trying: No Eating poorly because of decreased appetite: No Patient : No Occupation Assessmet: service: No Current occupational status: unemployed Oncology Screenings - ECOG Performance Status ECOG Performance Status: 0 Home Medications and Allergies Current Medications: Current Medications Acetaminophen (Acetaminophen 325 Mg Tablet) 650 mg PO ONCE GIDEON Stop: 11/09/23 23:59 Atropine Sulfate (Atropine Sulfate 1 Mg/Ml Vial) 0.5 mg SUBCUT ONCE GIDEON Stop: 11/09/23 23:59 Famotidine (Famotidine/Pf 20 Mg/2 Ml Vial) 20 mg IVPUSH ONCE GIDEON Stop: 11/09/23 23:59 Dexamethasone Sodium Phosphate (Decadron) 12 mg in 50 mls @ 200 mls/hr IV ONCE GIDEON Stop: 11/09/23 23:59 Ondansetron HCl (Zofran) 16 mg in 50 mls @ 200 mls/hr IV ONCE GIDEON Stop: 11/09/23 23:59 Fosaprepitant 150 mg/ Sodium (Chloride) 150 mls @ 300 mls/hr IV ONCE GIDEON Stop: 11/09/23 23:59 Home Medications Medication Instructions Recorded Confirmed Type metoprolol tartrate 25 mg tablet 25 mg PO BID 01/14/21 09/21/23 History nitroglycerin 0.4 mg sublingual 0.4 mg sublingual Q5M PRN Chest 01/14/21 09/21/23 History tablet Pain aripiprazole 10 mg tablet (Abilify) 10 mg PO DAILY psychosis 01/16/22 09/21/23 History hydroxyzine HCl 10 mg PO DAILY PRN Anxiety 02/15/23 09/21/23 History Bacillus coagulans 250 million 250 cell PO DAILY 08/12/23 09/21/23 History cell chewable tablet (Probiotic (B. coagulans)) multivitamin with minerals-folic 0.4 tab PO DAILY 08/12/23 09/21/23 History acid 0.4 mg tablet (One-A-Day Women's 50 Plus) Allergies Allergy/AdvReac Type Severity Reaction Status Date / Time bee pollen [BEE STINGS] Allergy Severe ANAPHYLAXIS Verified 09/21/23 14:44 Penicillins Allergy Intermediate Unknown Verified 09/21/23 14:44 danazol Allergy Unknown hand Verified 09/21/23 14:44 swelling sertraline [Zoloft] AdvReac Unknown increasedi Verified 09/21/23 14:44 rritability codeine AdvReac Unknown nausea Uncoded 09/21/23 14:44 prilosec AdvReac Unknown bloating Uncoded 09/21/23 14:44 Exam Vital signs: Vital Signs Temp 97.9 F 11/09/23 08:38 Pulse 107 H 11/09/23 08:38 Resp 18 11/09/23 08:38 BP 105/75 11/09/23 08:38 Pulse Ox 97 11/09/23 08:38 O2 Del Method Room Air 11/02/23 14:16 Intake & Output 11/08/23 11/09/23 11/09/23 18:59 06:59 18:59 Other: Weight 69.9 kg Weight in Grams 50802 Weight 69.9 kg BMI result Body Mass Index 28.2 - Constitutional Present: mild distress - Routine HEENT Exam Head: Present: normocephalic Eye: Present: normal appearance ENT: Present: mucous membranes moist - Routine Neck Exam Present: full ROM - Routine Respiratory Exam Present: CTAB - Routine Cardiovascular Exam Cardiovascular: Present: RRR, S1, S2. Absent: rubs, S3, S4 - Routine Abdominal Exam Present: normal bowel sounds, nontender. Absent: diminished bowel sounds, organomegaly - Routine Rectal Exam Patient deferred: digital exam - Routine Extremities Exam Absent: tenderness - Routine Back/Spine/Pelvis Exam Back/Spine: Present: full ROM - Routine Skin Exam Present: intact, normal turgor - Routine Neurological Exam Present: alert, oriented X3 - Detailed Neurological Exam: Coma Scale Eye Opening: Spontaneous (4) - Routine Psychiatric Exam Present: normal affect Data - Labs CBC & Chem 7: 11/09/23 09:00 11/09/23 09:00 Assessment and Plan Patient Active problem list reviewed?: Yes (1) Breast cancer of upper-outer quadrant of left female breast Status: Resolved Assessment and plan: This is a pleasant 45-year-old lady with recent diagnosis of left-sided breast cancer upper outer quadrant. 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 Question is about neoadjuvant chemotherapy. Since the tumor size is small less than 2 cm., the nodes appear negative on the ultrasound. Would recommend upfront surgical resection for exact staging. She will need chemotherapy since she is triple negative. I discussed the case with Dr. Dutta, as well. She underwent a lumpectomy with sentinel node dissection. Her pathology revealed: Pathology revealed: Invasive ductal carcinoma, high grade, 3 cm, with small satellite nodules x2 approximately 0.1 cm. DCIS nuclear grade 3 with comedonecrosis and calcifications. No lymphovascular invasion. Margins negative for invasive and in-situ ductal carcinoma, however invasive ductal carcinoma is less than 0.1 cm to the posterior margin and approximately 0.1 cm to the medial and lateral margins. Re-excision negative. ER negative/LA negative and HER2 Vonda negative. Three sentinel nodes were negative. No lymphovascular invasion. Margins negative for invasive and in-situ ductal carcinoma, however invasive ductal carcinoma is less than 0.1 cm to the posterior margin and approximately 0.1 cm to the medial and lateral margins. Re-excision negative. ER negative/LA negative and HER2 Vonda negative. Three sentinel nodes were negative. She was deemed a candidate for adjuvant chemotherapy, being triple negative. Choices of chemotherapy included dose dense AC x4, followed by Taxol. However she does have a history of cardiac issues with diastolic dysfunction. In the situation I intended to avoid Adriamycin. She had an echocardiogram at [facility] few weeks prior which showed EF of 55%. Recent data suggest benefit of adjuvant carboplatin and Taxol, especially for triple negative disease. She had a Port-A-Cath placed to facilitate the chemotherapy. She got started on 06/03/21. She completed 6 cycles October,, without incident. Subsequently it appears that she had some mental breakdown. There is some history of bipolar disorder. She was inpatient at [facility] for a couple weeks. In November,, she developed COVID. She was at [facility] then transferred to [facility] for another couple weeks for psychiatric admission. It appears now that she is clinically stable. She had an appointment with entertainment & media correspondent in [place] on February 25. She mentioned that she was considering a double mastectomy. I advised her to just get post lumpectomy radiation. She is concerned about dermatological toxicity related to radiation. She can at least meet with the radiation therapist and have her questions answered. She was referred for post lumpectomy radiation therapy. She preferred to go to [facility]. She finally completed the radiation 6 months ago. She had a mammogram on 08/19/2022 which was benign. Recently, she has had right upper quadrant/epigastric pain Fortunately the imaging is negative. She could have gastritis/ulcer disease. She was referred to GI, for further evaluation including endoscopy. Appointment was for 12/28. She saw Pb Anaya, her note: 47-year-old female multiple comorbidities referred for index screening colonoscopy presents with persistent acid reflux. Schedule EGD to r/o pud, nonulcer dyspepsia, esophagitis other endoscopic findings to account for his symptoms as well as screening colonoscopy. Discussed procedures, rare risks, need for escorted due to anesthesia, it in cardiac history, unclear will get anesthesia consult. Discuss MiraLax Gatorade split prep, literature given. She will have H pylori test if positive we will treat-otherwise pantoprazole 40 mg which has given her fairly good response in the past. Lately, she has had CP, and PVCs. An appt will be set up with Dr. Madrid, at her request. She had repeat mammogram, on 10 August. Stable postoperative and post treatment related changes to the left breast, with no new findings suspicious for malignancy. No suspicious findings right breast. Recommend continuing yearly mammography of both breasts to establish a 3 year post operative stability of the left breast. l checked a bone density at the same time. This revealed: 1. DIAGNOSIS: Osteopenia based on the lowest T-score value of -1.2 in the femoral neck applying World Health Organization criteria. 2. 10-YEAR FRACTURE RISK PREDICTION, FRAX: Major osteoporotic fracture (clinical spine, forearm, hip or shoulder) 4.0%. Hip fracture 0.4%. Ca 27.29: 20. She was seen in the ED on 08/22. Narrative: Patient with chronic recurrent epigastric pain had an ultrasound done in 12/17 which was negative. Pain is constant epigastric areas patient for last 3 months no relation with food no nausea no vomiting nose weight loss. Patient does have a strong family history of breast cancer. Also history of pancreatic cancer in her cousins but patient's previous CT scan on 12/[address] scan of the abdomen pelvis revealed: 1. Multiple new peripherally enhancing hepatic lesions, most concerning for metastatic disease. 2. A 1.5 cm hypoattenuating soft tissue focus along the cephalad margin of the pancreatic body is new as compared to prior and may correspond to an adjacent enlarged lymph node or a primary pancreatic lesion. 3. A few new pulmonary nodules at the lung bases which are concerning for metastatic disease in the context of the new hepatic lesions. 4. Borderline enlarged retroperitoneal lymph nodes. Database: From 08/22: CBC: WBC 7.8, HGB 14.3, HCT 41.9, PLT 201. CMP: Lytes WNL, BUN 10, PACKING LINE OPERATOR 0.78. LFTs: 0.2/85/37/46. Albumin 4.2. Calcium 9.8. CA 27.29: 71. She had abdominal pain. The oxycodone helped. Liver Mets are likely related to the breast cancer. I proceeded with further evaluation. 08/24 MRI of the abdomen revealed: 1.3 x 1.6 x 1.8 cm mass in the body of the pancreas. No dilatation of the main pancreatic duct. There are numerous peripherally enhancing hepatic masses. There are enlarged gastrohepatic ligament and retroperitoneal lymph nodes. This likely represents metastatic disease. l checked CA 19-9: 18. l proceeded with a PET scan for restaging purposes. She had a biopsy of the liver lesion on 09/06. It revealed: Poorly differentiated carcinoma consistent with pancreatic primary. She saw Dr. Landry Perez at [facility] on 09/20/23. His recommendation was to proceed with FOLFIRINOX based palliative chemotherapy. She underwent chemotherapy teaching. She was started on it on 09/28/23. Here for cycle 4. After she completed the treatment she noted that her tongue did not feel normal, and she had some word-finding difficulties that lasted few minutes. She had already had the Benadryl. PLAN: She will have the chemo treatments every 2 weeks. Will re-stage her with imaging, she is scheduled on November 26. Will forward the results to Dr. Perez. She will return in a couple of weeks for a follow-up visit All her and her sister's questions were answered to her satisfaction. Thank you, CC: Dr. Dutta. Dr. Enriquez. - Time Spent With Patient Time Spent with Patient (in minutes): 30
[2023-11-09 09:33] LABS: Alanine Aminotransferase 73 U/L (0-31); Albumin Level 3.9 g/dL (3.5-5.0); Alkaline Phosphatase 130 U/L (39-117); Anion Gap 13 (12-20); Aspartate Amino Transferase 40 U/L (5-31); Bilirubin Total 0.3 mg/dL (0.0-1.0); Blood Urea Nitrogen 13 mg/dL (9-16); Calcium 9.3 mg/dL (8.4-10.2); Carbon Dioxide 24 mmol/L (22-29); Chloride 105 mmol/L (96-108); Creatinine Clr Calc Pharmacy 76.1; Estimated Glomerular Filt Rate > 60; Glucose Random 114 mg/dL (60-115); Potassium 3.9 mmol/L (3.3-5.1); Sodium 138 mmol/L (135-145); Total Protein 6.7 g/dL (6.5-8.0)
[2023-11-09 09:44] LABS: Band Neutrophils Percent 7 % (3-5); Eosinophils Absolute Manual 0.1 X10*3/uL (0.0-0.4); Eosinophils Percent Manual 2 % (0-4); Lymphocytes Absolute Manual 1.3 X10*3/uL (1.2-4.9); Lymphocytes Percent Manual 18 % (20-40); Metamyelocytes Absolute 0.1 X10*3/uL; Metamyelocytes Percent 1 %; Monocytes Absolute Manual 0.6 X10*3/uL (0.1-1.2); Monocytes Percent Manual 8 % (2-11); Myelocytes Absolute 0.1 X10*/uL; Myelocytes Percent 1 %; Neutrophils Percent Manual 63 % (45-73)
[2023-11-09 09:47] LABS: Ovalocytes 1+ (5-14) /OIF; RBC Morphology NOTED
[2023-11-09 09:49] LABS: Platelet Estimate DECREASED (NORMAL); Platelet Morphology Comment NORMAL; Polychromasia 2+ (3-5) /OIF
[2023-11-09 09:50] LABS: Platelet Count 86 X10*3/uL (160-400)
[2023-11-09 09:52] LABS: HBc Num1 0.06 S/CO (0.00-0.79); HBsAGNum1 0.34 S/CO (0.00-0.99); Hepatitis B Core Antibody Nonreactive (Nonreactive); Hepatitis B Surface Antigen Negative (Negative); ~Hepatitis B Surface Antibody REACTIVE (Nonreactive)
[2023-11-09] MEDS: Acetaminophen 325 MG TABLET 650 MG PO (10:02)
[2023-11-09] MEDS: dexAMETHasone sod phosphate/NS 12 MG/50 ML PIGGYBACK 200 MG IV (10:02)
[2023-11-09] MEDS: Fosaprepitant Dimeglumine 150 MG in 0.9 % Sodium Chloride 145 ML 300 MG IV (10:03)
[2023-11-09] MEDS: Famotidine/PF 20 MG/2 ML VIAL IVPUSH (10:03)
[2023-11-09] MEDS: Atropine Sulfate 1 MG/ML VIAL 0.5 MG SUBCUT (10:03)
--- NOTE | 2023-11-09 10:20 | MHC.HEMONC ---
follow up with dr butler today, imodium sent to pharm to have on hand. dr butler aware of dropping plt. pt denies bleeding or increased bruising.
[2023-11-09] MEDS: Leucovorin Calcium 690 MG in Dextrose 5 % 250 ML 142.25 MG IV (13:41)
[2023-11-10 10:04] LABS: Carbohydrate Antigen 19-9 19 U/mL (<34)
[2023-11-11] MEDS: 0.9 % Sodium Chloride 1,000 ML 999 ML IV (13:35)
[2023-11-11] MEDS: Heparin Sodium,Porcine Flush 500 UNIT/5 ML SYRINGE IVFLUSH (13:50)
--- NOTE | 2023-11-11 15:57 | MHC.HEMONC ---
Pt here for chemo pump take down, neulasta injection and IV hydration. 1000 ml 0.9% NS given as ordered, Neulasta injection SC given in right arm (no PA required) tolerated well. Port flushed with heparin and de accessed. Pt aware of next appointment-declines discharge packet
[2023-11-23 08:21] VITALS: BP 108/75; PULSE 98; RESP 20; TEMP 36; O2SAT 100; BMI 28.7
[2023-11-23 08:51] LABS: MANUAL DIFF FLAG NO
[2023-11-23 08:58] LABS: Basophils Percent Auto 0.4 % (0-2); Eosinophils Percent Auto 0.2 % (0-4); Hematocrit 36.5 % (37.0-47.0); Imm Gran Abs Auto 0.23 X10*3/uL (0.00-0.03); Imm Gran Pct Auto 2.9 % (0.0-0.4); Lymphocytes Absolute Auto 1.5 X10*3/uL (1.2-4.9); Lymphocytes Percent Auto 18.7 % (20-40); Mean Corpuscular HGB Conc 32.9 g/dl (31.0-35.0); Mean Corpuscular Hemoglobin 28.6 pg (27.0-33.0); Mean Corpuscular Volume 87.1 fL (80.0-98.0); Monocytes Absolute Auto 0.9 X10*3/uL (0.1-1.2); Monocytes Percent Auto 10.7 % (2-11); Neutrophils Absolute Auto 5.4 x10*3/uL (2.0-8.3); Neutrophils Percent Auto 67.1 % (45-73); Platelet Count 81 X10*3/uL (160-400); Red Blood Count 4.19 X10*6/uL (4.20-5.50); Red Cell Distribution Width 21.6 % (11.0-16.0)
[2023-11-23 09:09] LABS: Alanine Aminotransferase 48 U/L (0-31); Albumin Level 3.7 g/dL (3.5-5.0); Alkaline Phosphatase 137 U/L (39-117); Anion Gap 14 (12-20); Aspartate Amino Transferase 30 U/L (5-31); Bilirubin Total 0.3 mg/dL (0.0-1.0); Blood Urea Nitrogen 11 mg/dL (9-16); Calcium 9.1 mg/dL (8.4-10.2); Carbon Dioxide 23 mmol/L (22-29); Chloride 107 mmol/L (96-108); Creatinine Clr Calc Pharmacy 86.4; Estimated Glomerular Filt Rate > 60; Glucose Random 134 mg/dL (60-115); Potassium 3.9 mmol/L (3.3-5.1); Sodium 140 mmol/L (135-145); Total Protein 6.4 g/dL (6.5-8.0)
[2023-11-23 09:28] LABS: HBc Num1 0.05 S/CO (0.00-0.79); HBsAGNum1 0.33 S/CO (0.00-0.99); Hepatitis B Core Antibody Nonreactive (Nonreactive); Hepatitis B Surface Antigen Negative (Negative); ~Hepatitis B Surface Antibody REACTIVE (Nonreactive)
[2023-11-23] MEDS: dexAMETHasone sod phosphate/NS 12 MG/50 ML PIGGYBACK 200 MG IV (09:45)
[2023-11-23] MEDS: Acetaminophen 325 MG TABLET 650 MG PO (09:46)
[2023-11-23] MEDS: Famotidine/PF 20 MG/2 ML VIAL IVPUSH (09:46)
[2023-11-23] MEDS: Atropine Sulfate 1 MG/ML VIAL 0.5 MG SUBCUT (09:46)
[2023-11-23] MEDS: Fosaprepitant Dimeglumine 150 MG in 0.9 % Sodium Chloride 145 ML 300 MG IV (10:05)
[2023-11-23] MEDS: Leucovorin Calcium 700 MG in Dextrose 5 % 250 ML 190 MG IV (13:24)
--- NOTE | 2023-11-23 13:55 | MHC.HEMONC ---
pt feeling well today, tolerating treatment fine. pt requesting dr butler to call her with CT results that will be done on 11/26. pt also wants to talk dr butler on 12/07 about delaying treatments to every 3 weeks so she can enjoy one week of feeling great before starting another cycle.
[2023-11-25 12:29] VITALS: BP 101/70; PULSE 85; RESP 18; TEMP 36.4; O2SAT 98
[2023-11-25] MEDS: Heparin Sodium,Porcine Flush 500 UNIT/5 ML SYRINGE IVFLUSH (12:31)
[2023-11-25] MEDS: 0.9 % Sodium Chloride 500 ML IV (12:32)
--- NOTE | 2023-11-25 13:35 | MHC.HEMONC ---
Pt here for chemo pump take down and IV hydration. 500 ml 0.9% NS infused-pt requested IV fluids be stopped prior to completion. States she feels full Port flushed with heparin and de accessed. Neulasta injection (no PA required) given in right arm-tolerated well. Pt aware of next appointment.
[2023-12-07 08:34] VITALS: BP 109/68; PULSE 102; RESP 18; TEMP 36.1; O2SAT 98; BMI 28.8
[2023-12-07 08:55] LABS: MANUAL DIFF FLAG NO
[2023-12-07 09:03] LABS: Basophils Percent Auto 0.4 % (0-2); Eosinophils Percent Auto 0.4 % (0-4); Hematocrit 37.6 % (37.0-47.0); Hemoglobin 12.5 g/dl (12.0-16.0); Imm Gran Pct Auto 2.8 % (0.0-0.4); Lymphocytes Absolute Auto 1.4 X10*3/uL (1.2-4.9); Lymphocytes Percent Auto 19.3 % (20-40); Mean Corpuscular HGB Conc 33.2 g/dl (31.0-35.0); Mean Corpuscular Hemoglobin 29.4 pg (27.0-33.0); Mean Corpuscular Volume 88.5 fL (80.0-98.0); Mean Platelet Volume 8.6 fL (9.4-12.3); Monocytes Absolute Auto 0.8 X10*3/uL (0.1-1.2); Monocytes Percent Auto 11.3 % (2-11); Neutrophils Absolute Auto 4.8 x10*3/uL (2.0-8.3); Neutrophils Percent Auto 65.8 % (45-73); Red Blood Count 4.25 X10*6/uL (4.20-5.50); Red Cell Distribution Width 22.3 % (11.0-16.0); White Blood Count 7.3 X10*3/uL (4.8-10.8)
[2023-12-07 09:04] LABS: Platelet Count 98 X10*3/uL (160-400)
[2023-12-07 09:15] LABS: Alanine Aminotransferase 48 U/L (0-31); Albumin Level 3.7 g/dL (3.5-5.0); Alkaline Phosphatase 145 U/L (39-117); Anion Gap 14 (12-20); Aspartate Amino Transferase 35 U/L (5-31); Bilirubin Total 0.2 mg/dL (0.0-1.0); Blood Urea Nitrogen 8 mg/dL (9-16); Calcium 8.8 mg/dL (8.4-10.2); Carbon Dioxide 23 mmol/L (22-29); Chloride 108 mmol/L (96-108); Creatinine Clr Calc Pharmacy 86.5; Estimated Glomerular Filt Rate > 60; Glucose Random 116 mg/dL (60-115); Potassium 4.1 mmol/L (3.3-5.1); Sodium 141 mmol/L (135-145); Total Protein 6.5 g/dL (6.5-8.0)
[2023-12-07] MEDS: dexAMETHasone sod phosphate/NS 12 MG/50 ML PIGGYBACK 200 MG IV (09:31)
[2023-12-07] MEDS: Atropine Sulfate 1 MG/ML VIAL 0.5 MG SUBCUT (09:32)
[2023-12-07] MEDS: Acetaminophen 325 MG TABLET 650 MG PO (09:32)
[2023-12-07] MEDS: Famotidine/PF 20 MG/2 ML VIAL IVPUSH (09:32)
--- NOTE | 2023-12-07 09:47 | MHC.HEMONC ---
I filled out handicapped placard application with patient and Dr Torres signed. Copy given to patient and one copy scanned to chart.
[2023-12-07] MEDS: Fosaprepitant Dimeglumine 150 MG in 0.9 % Sodium Chloride 145 ML 300 MG IV (09:56)
[2023-12-07 12:04] LABS: HBS Num1 > 1000.00 mIU/mL (0-7.99); HBc Num1 0.07 S/CO (0.00-0.79); Hepatitis B Core Antibody Nonreactive (Nonreactive); Hepatitis B Surface Antigen Negative (Negative); ~Hepatitis B Surface Antibody REACTIVE (Nonreactive)
--- NOTE | 2023-12-07 12:13 | P.PNHO-ONC_ITS ---
Medical Summary - Medical Summary Date of Service: 12/07/23 Chief complaint: Follow-up for: Pancreatic carcinoma. Primary Care Provider: Carlyn Enriquez MD Medical Summary: DIAGNOSIS: LEFT BREAST CANCER UPPER OUTER QUADRANT. CURRENT THERAPY: STATUS POST LUMPECTOMY ON 04/29/21. Pathology revealed: Invasive ductal carcinoma, high grade, 3 cm, with small satellite nodules x2 approximately 0.1 cm. DCIS nuclear grade 3 with comedonecrosis and calcifications. No lymphovascular invasion. Margins negative for invasive and in-situ ductal carcinoma, however invasive ductal carcinoma is less than 0.1 cm to the posterior margin and approximately 0.1 cm to the medial and lateral margins. Re-excision negative. ER negative/MN negative and HER2 Vonda negative. Three sentinel nodes were negative. Recieved weekly carboplatin Taxol based chemotherapy. Cycle 1 on 06/03/21. Completed Cycle 6, day 15, on November 04. Now with metastatic pancreatic carcinoma with liver metastases. Started on FOLFIRINOX 09/28/23. Second dose 10/12. Third dose 10/26/23. Fifth dose 11/23. Here for . Interval History Interval history: Marah Rivera is a pleasant 48 year old lady, here for a follow-up visit. She is feeling quite good. She mentions this last cycle was rather rough on her. She felt rather tired and drained. Her appetite was not that good. She lost weight. She had diarrhea, and nuusea. Second week after chemo she feels better. Her energy level improves and she can do her housework. She does take a couple of naps a day. Her appetite is better and she eats a lot. Her hair is thinning out. No fever nor chills. She denies headaches. Occasional dizziness. She gets short of breath on exertion. Echocardiogram: normal LVEF. Appetite is not that great. She had lost 15 lbs of weight, in the beginning but now it appears to be stable. She denies frequency of micturition. She gets generalized aches and pains. She has been trying to stay active. She is in good spirits. Rest of the ROS is normal. INTERIM HISTORY: She was seen in the ED on 08/22. Narrative: Patient with chronic recurrent epigastric pain had an ultrasound done in 12/17 which was negative. Pain is constant epigastric areas patient for last 3 months no relation with food no nausea no vomiting nose weight loss. Patient does have a strong family history of breast cancer. Also history of pancreatic cancer in her cousins but patient's previous CT scan on 12/[address] scan of the abdomen pelvis revealed: 1. Multiple new peripherally enhancing hepatic lesions, most concerning for metastatic disease. 2. A 1.5 cm hypoattenuating soft tissue focus along the cephalad margin of the pancreatic body is new as compared to prior and may correspond to an adjacent enlarged lymph node or a primary pancreatic lesion. 3. A few new pulmonary nodules at the lung bases which are concerning for metastatic disease in the context of the new hepatic lesions. 4. Borderline enlarged retroperitoneal lymph nodes. She underwent a biopsy of the liver lesion on 09/06. Unfortunately it revealed: Poorly differentiated carcinoma. Morphologic and immunophenotypic features are consistent with pancreatic primary. She was seen by Dr. Landry Perez, at [facility], on 09/20. RECENT HISTORY: She was actually seen in the ED on 12/19/22. The note: 47-year-old female who presents emergency department for evaluation of right- sided abdominal pain. She states that approximately 2-3 weeks prior she was having very bad heartburn and was using Tums frequently. She states that over the last 1 and half weeks she has been having constant, right-sided abdominal pain. She points to her right upper quadrant area when asked to localize the pain. She states the pain was a constant dull pain. She did have an outpatient ultrasound done on 12/18/2022 which revealed no evidence of cholecystitis or cholelithiasis. She states that last night around 19:00 hours she ate a hot dog. At around 22:00 hours the right upper quadrant pain got worse and became a sharp pain. The pain does radiate to her back. She had associated nausea and has been dry heaving. She denied fever, chills, rhinorrhea, sore throat. She states she has had a chronic cough for weeks but she describes attributes this to a smoker's cough. She states that she has had an increase amount of gas and feels bloated. Patient does have a history breast cancer and she states she had a left lumpectomy, complete chemotherapy in October of 2021 and radiation therapy in April of 2022. bloated feeling. Vital signs were normal. Physical exam did reveal moderate right upper quadrant tenderness a mild right lower quadrant tenderness. I ordered the nursing staff to access the patient's Port-A-Cath I ordered a CBC, CMP, PT/INR, PTT, lipase, lactic acid urinalysis, urine test, COVID-[address] scan of the abdomen pelvis with IV contrast. Patient's pain and nausea will be treated with Toradol 15 mg IV and Zofran 4 mg IV. She was also ordered to get normal saline x1 L. The care was turned over to my colleague, Dr. Alannah Lockwood. Differential Diagnosis Differential diagnosis includes but is not limited to cholecystitis, appendicitis, pancreatitis, metastatic disease, gastritis, viral syndrome, esophagitis. CT scan of the abdomen/pelvis revealed: No acute findings identified in the abdomen/pelvis. Ultrasound of the abdomen from 12/18: IMPRESSION: No evidence of cholelithiasis or cholecystitis. Overall increased echogenicity within the liver may be consistent with fatty change. No free fluid She saw her senior examiner doctor, Dimitris. An ultrasound was done which revealed a cyst in the ovary. She did blood work and reassured her. Interim history: She completed cycle 6, day 15, of Carbo/Taxol weekly on 10/27/21. She came here after a long hiatus. She had some social/mental issues. She was seen in the emergency room on 11/10: Narrative: This is a 46-year-old female was brought in by ambulance. The patient was in her car at [facility] and apparentlywas acting bizarrely therefore personnel at [facility] called the ambulance. Patient herself is not forthcoming with regard to history. She is lying on her side with her hand over her mouth and for his speech is difficult to understand due to it being muffled but her hand. Patient states that her her family has been out to get her. She mentioned something about crisis evaluation. She denies alcohol or drug use. She said she feels that she is very hot. She notes she is being treated for breast cancer. She states she has had low platelets in the past. Patient also notes that she is DNR ?for any number of reasons? The patient appears to be manic, she is shouting at people that walk by in her in the emergency department, she is making bizarre statements such as she is a DNR but she does not have the paperwork and she does not care and wants to . I suspect that the patient has either bipolar disorder schizophrenia and is not taking her medications therefore she is a danger to herself and I am placing her on a Section 12. The patient will be kept in the emergency department until she can be evaluated by our crisis team. The patient refused to let me give her physical exam. At the end of my shift, the patient's care was turned over to my colleague, Dr. Soto. 01/15, she was seen by her primary care doctor Mina: She has history bipolar disorder, recently discharged from [facility] 01/19/2022,admitted for acute john with psychosis. She has history invasive ductal ca of left breast, and diagnosed to have diastolic dysfunction. She states that she is currently being seen by Dr. Trevino at [facility] for her cardiac follow-up, and will be transferred to [facility] for a double mastectomy. Patient states that she needs to be seen by psychiatrist. She was seen and evaluated by our mental health specialist, Rachael, who reviewed her discharge from recent psychiatric admission, and she was reminded that she is already has seen by [facility] a psychiatrist at [place] and has a follow-up appointment. Patient was given the number to contact her psychiatrist to schedule an appointment. She states that she has been feeling well at present time with no complaints of any chest pain, no suicidal ideations. She is trying to apply for disability, has been denied 4 times. Previous history: 1. She tells me, 1 of her teeth broke while biting into something. She had seen the dentist. She may need to have the tooth removed. 2. She had an abnormal mammogram. This was done on ,02/28 and revealed: Left breast has new mass, posterior upper outer quadrant in area of palpable in measuring 1.7 cm. Ultrasound demonstrated: Heterogenous macro lobulated hypoechoic mass posterior upper outer quadrant measurin.8 and 1.4 time 1.7 cm. Left axillary nodes showing normal fatty hilus and normal color. 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 She had her lumpectomy done on 04/29. She tells me that her surgery went well. The incision does appear to be healing, the open area has closed up. No more drainage. She had a follow-up appointment with Dr. Dutta. 3. Cardiac issues: She has had some cardiac issues. She was seen by Dr. Morse who diagnosed diastolic dysfunction. She went to Dr. Trevino in [place] who did right heart catheterization. He mention some muscular dysfunction/autonomic dysfunction. No treatment was suggested. Clinical trial was offered that she declined. She actually had an appointment with Dr. Brewer. Manager Telemarketing History: Menarche at 10. She still has her regular periods. Family history: Her mom was diagnosed with breast cancer at 38. She lived for 7 years. of metastatic disease. 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 She is not . She has no children. She smokes half a pack a day. She drinks very little alcohol. Review of Systems - Constitutional Reports no additional constitutional complaints, Reports lack of energy, Reports malaise, Denies weight loss - Eyes Reports no additional eye complaints - ENT Reports no additional ear, nose, mouth, and throat complaints - Cardiovascular Reports no additional cardiovascular complaints - Respiratory Reports no additional respiratory complaints - Gastrointestinal Reports no additional gastrointestinal complaints - Genitourinary Reports no additional female genitourinary complaints - Musculoskeletal Reports no additional musculoskeletal complaints - Integumentary/Breasts Skin/Breast: Reports no additional skin complaints - Neurologic Reports no additional neurologic complaints, Denies headache(s), Reports weakness - Psychiatric Reports no additional psychiatric complaints - Endocrine Reports no additional endocrine complaints - Hematologic/Lymphatic Reports no additional hematologic/lymphatic complaints - Allergic/Immunologic Reports no additional allergic/immunologic complaints [facility] Medical History: Medical History (Last Reviewed 09/21/23 @ 14:44 by Helen Espinosa) Diastolic dysfunction Exertional dyspnea Family history of breast cancer gene mutation in first degree relative Hx of cyst of breast Hx of lipoma Impaired fasting glucose Invasive ductal carcinoma of left breast Skin lesion of left upper extremity Functional capacity: independent ambulation Patient : No Family History: Family History (Last Reviewed 09/21/23 @ 14:44 by Helen Espinosa) Mother Breast cancer, Onset Age: 38 Father CAD (coronary artery disease) Hyperlipidemia HTN (hypertension) History of cardiac defibrillator placement Pacemaker Family/Other Lymphoma Paternal Grandmother Dementia Sister Substance use disorder Mental health disorder Surgical History: Surgical History (Last Reviewed 09/21/23 @ 14:44 by Helen Espinosa) Endometriosis History of excision of mass History of lumpectomy of left breast Social History: Social History (Last Reviewed 09/21/23 @ 14:44 by Helen Espinosa) Living Situation History: Household Members: Family Housing: House Are you a primary post acute care nurse practitioner to a significant other at home: No Do you presently have visiting nurse or other home services: No Alcohol History Details: 1. How often do you have a drink containing alcohol?: b. Monthly or less 2. How many drinks containing alcohol do you have on a typical day when you are drinking?: a. 1 or 2 Tobacco History: Patient Tobacco Use Status: Current everyday Tobacco Tobacco use type: Cigarette Cigarette Packs Per Day: 0.5 e-Cigarette/Vaping Use: Never Used Substance Use History: Use of substances other than those prescribed or required for medical reasons : No Substance Use Type: Marijuana Domestic Abuse History: Have you been hit, kicked, punched, or otherwise hurt by someone within the past year? If so, by whom?: No Do you feel safe in your current relationship?: Yes Advance Directives: Advance Directives Date on File: 11/26/21 Homicidal Assessment: Do you have thoughts of harming others: None Do you have a plan to hurt others: No Plan Do you have the means to hurt others: No Nutrition Assessment: Recently lost weight without trying: No Eating poorly because of decreased appetite: No Patient : No Occupation Assessmet: service: No Current occupational status: unemployed Oncology Screenings - ECOG Performance Status ECOG Performance Status: 0 Home Medications and Allergies Current Medications: Current Medications Acetaminophen (Acetaminophen 325 Mg Tablet) 650 mg PO ONCE GIDEON Stop: 12/07/23 23:59 Last Admin: 12/07/23 09:32 Dose: 650 mg Atropine Sulfate (Atropine Sulfate 1 Mg/Ml Vial) 0.5 mg SUBCUT ONCE GIDEON Stop: 12/07/23 23:59 Last Admin: 12/07/23 09:32 Dose: 0.5 mg Famotidine (Famotidine/Pf 20 Mg/2 Ml Vial) 20 mg IVPUSH ONCE GIDEON Stop: 12/07/23 23:59 Last Admin: 12/07/23 09:32 Dose: 20 mg Dexamethasone Sodium Phosphate (Decadron) 12 mg in 50 mls @ 200 mls/hr IV ONCE GIDEON Stop: 12/07/23 23:59 Last Infusion: 12/07/23 09:46 Dose: Infused Ondansetron HCl (Zofran) 16 mg in 50 mls @ 200 mls/hr IV ONCE GIDEON Stop: 12/07/23 23:59 Last Infusion: 12/07/23 09:46 Dose: Infused Fosaprepitant 150 mg/ Sodium (Chloride) 150 mls @ 300 mls/hr IV ONCE GIDEON Stop: 12/07/23 23:59 Last Infusion: 12/07/23 10:26 Dose: Infused Fluorouracil 3,175 mg/ Sodium (Chloride) 92 mls @ 2 mls/hr IVCONT ONCE GIDEON Stop: 12/07/23 23:59 Fluorouracil 700 mg/ IV (Miscellaneous Supplies) 14 mls @ 168 mls/hr IVPUSH ONCE GIDEON Stop: 12/07/23 23:59 Leucovorin Calcium 700 mg/ (Dextrose) 285 mls @ 142.5 mls/hr IV ONCE GIDEON Stop: 12/07/23 23:59 Oxaliplatin 100 mg/ (Oxaliplatin 10 mg/ Dextrose) 522 mls @ 261 mls/hr IV ONCE GIDEON Stop: 12/07/23 23:59 Last Admin: 12/07/23 11:14 Dose: 261 mls/hr Irinotecan HCl 240 mg/ (Dextrose) 512 mls @ 341.333 mls/hr IV ONCE GIDEON Stop: 12/07/23 23:59 Home Medications Medication Instructions Recorded Confirmed Type metoprolol tartrate 25 mg tablet 25 mg PO BID 01/14/21 09/21/23 History nitroglycerin 0.4 mg sublingual 0.4 mg sublingual Q5M PRN Chest 01/14/21 09/21/23 History tablet Pain aripiprazole 10 mg tablet (Abilify) 10 mg PO DAILY psychosis 01/16/22 09/21/23 History hydroxyzine HCl 10 mg PO DAILY PRN Anxiety 02/15/23 09/21/23 History Bacillus coagulans 250 million 250 cell PO DAILY 08/12/23 09/21/23 History cell chewable tablet (Probiotic (B. coagulans)) multivitamin with minerals-folic 0.4 tab PO DAILY 08/12/23 09/21/23 History acid 0.4 mg tablet (One-A-Day Women's 50 Plus) Allergies Allergy/AdvReac Type Severity Reaction Status Date / Time bee pollen [BEE STINGS] Allergy Severe ANAPHYLAXIS Verified 09/21/23 14:44 Penicillins Allergy Intermediate Unknown Verified 09/21/23 14:44 danazol Allergy Unknown hand Verified 09/21/23 14:44 swelling sertraline [Zoloft] AdvReac Unknown increasedi Verified 09/21/23 14:44 rritability codeine AdvReac Unknown nausea Uncoded 09/21/23 14:44 prilosec AdvReac Unknown bloating Uncoded 09/21/23 14:44 Exam Vital signs: Vital Signs Temp 97.0 F 12/07/23 08:34 Pulse 102 H 12/07/23 08:34 Resp 18 12/07/23 08:34 BP 109/68 12/07/23 08:34 Pulse Ox 98 12/07/23 08:34 O2 Del Method Room Air 11/25/23 12:29 Intake & Output 12/06/23 12/07/23 12/07/23 18:59 06:59 18:59 Intake Total 250 / 250 Balance 250 / 250 Intake: Intake, IV Amount 250 / 250 Fosaprepitant Dimeglumine 150 150 / 150 mg In 0.9 % Sodium Chloride 145 ml @ 300 mls/hr IV ONCE GIDEON Rx #:[id number] Ondansetron HCL/NS 16 mg In 50 50 / 50 ml @ 200 mls/hr IV ONCE GIDEON Rx# :[id number] dexAMETHasone sod phosphate/NS 50 / 50 12 mg In 50 ml @ 200 mls/hr IV ONCE GIDEON Rx#:[id number] Other: Weight 71.5 kg [place] Weight in Grams [id number] Weight 71.5 kg BMI result Body Mass Index 28.8 - Constitutional Present: mild distress - Routine HEENT Exam Head: Present: normocephalic Eye: Present: normal appearance ENT: Present: mucous membranes moist - Routine Neck Exam Present: full ROM - Routine Respiratory Exam Present: CTAB - Routine Cardiovascular Exam Cardiovascular: Present: RRR, S1, S2. Absent: rubs, S3, S4 - Routine Abdominal Exam Present: normal bowel sounds, nontender. Absent: diminished bowel sounds, organomegaly - Routine Rectal Exam Patient deferred: digital exam - Routine Extremities Exam Absent: tenderness - Routine Back/Spine/Pelvis Exam Back/Spine: Present: full ROM - Routine Skin Exam Present: intact, normal turgor - Routine Neurological Exam Present: alert, oriented X3 - Detailed Neurological Exam: Coma Scale Eye Opening: Spontaneous (4) - Routine Psychiatric Exam Present: normal affect Data - Labs CBC & Chem 7: 12/07/23 08:55 12/07/23 08:55 Assessment and Plan Patient Active problem list reviewed?: Yes (1) Breast cancer of upper-outer quadrant of left female breast Status: Resolved Assessment and plan: This is a pleasant 45-year-old lady with recent diagnosis of left-sided breast cancer upper outer quadrant. 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 Question is about neoadjuvant chemotherapy. Since the tumor size is small less than 2 cm., the nodes appear negative on the ultrasound. Would recommend upfront surgical resection for exact staging. She will need chemotherapy since she is triple negative. I discussed the case with Dr. Dutta, as well. She underwent a lumpectomy with sentinel node dissection. Her pathology revealed: Pathology revealed: Invasive ductal carcinoma, high grade, 3 cm, with small satellite nodules x2 approximately 0.1 cm. DCIS nuclear grade 3 with comedonecrosis and calcifications. No lymphovascular invasion. Margins negative for invasive and in-situ ductal carcinoma, however invasive ductal carcinoma is less than 0.1 cm to the posterior margin and approximately 0.1 cm to the medial and lateral margins. Re-excision negative. ER negative/MN negative and HER2 Vonda negative. Three sentinel nodes were negative. No lymphovascular invasion. Margins negative for invasive and in-situ ductal carcinoma, however invasive ductal carcinoma is less than 0.1 cm to the posterior margin and approximately 0.1 cm to the medial and lateral margins. Re-excision negative. ER negative/MN negative and HER2 Vonda negative. Three sentinel nodes were negative. She was deemed a candidate for adjuvant chemotherapy, being triple negative. Choices of chemotherapy included dose dense AC x4, followed by Taxol. However she does have a history of cardiac issues with diastolic dysfunction. In the situation I intended to avoid Adriamycin. She had an echocardiogram at [facility] few weeks prior which showed EF of 55%. Recent data suggest benefit of adjuvant carboplatin and Taxol, especially for triple negative disease. She had a Port-A-Cath placed to facilitate the chemotherapy. She got started on 06/03/21. She completed 6 cycles October,, without incident. Subsequently it appears that she had some mental breakdown. There is some history of bipolar disorder. She was inpatient at [facility] for a couple weeks. In November,, she developed COVID. She was at [facility] then transferred to [facility] for another couple weeks for psychiatric admission. It appears now that she is clinically stable. She had an appointment with tip cementer in [place] on February 25. She mentioned that she was considering a double mastectomy. I advised her to just get post lumpectomy radiation. She is concerned about dermatological toxicity related to radiation. She can at least meet with the radiation therapist and have her questions answered. She was referred for post lumpectomy radiation therapy. She preferred to go to [facility]. She finally completed the radiation 6 months ago. She had a mammogram on 08/19/2022 which was benign. Recently, she has had right upper quadrant/epigastric pain Fortunately the imaging is negative. She could have gastritis/ulcer disease. She was referred to GI, for further evaluation including endoscopy. Appointment was for 12/28. She saw Pb Anaya, her note: 47-year-old female multiple comorbidities referred for index screening colonoscopy presents with persistent acid reflux. Schedule EGD to r/o pud, nonulcer dyspepsia, esophagitis other endoscopic findings to account for his symptoms as well as screening colonoscopy. Discussed procedures, rare risks, need for escorted due to anesthesia, it in cardiac history, unclear will get anesthesia consult. Discuss MiraLax Gatorade split prep, literature given. She will have H pylori test if positive we will treat-otherwise pantoprazole 40 mg which has given her fairly good response in the past. Lately, she has had CP, and PVCs. An appt will be set up with Dr. Madrid, at her request. She had repeat mammogram, on 10 August. Stable postoperative and post treatment related changes to the left breast, with no new findings suspicious for malignancy. No suspicious findings right breast. Recommend continuing yearly mammography of both breasts to establish a 3 year post operative stability of the left breast. l checked a bone density at the same time. This revealed: 1. DIAGNOSIS: Osteopenia based on the lowest T-score value of -1.2 in the femoral neck applying World Health Organization criteria. 2. 10-YEAR FRACTURE RISK PREDICTION, FRAX: Major osteoporotic fracture (clinical spine, forearm, hip or shoulder) 4.0%. Hip fracture 0.4%. Ca 27.29: 20. She was seen in the ED on 08/22. Narrative: Patient with chronic recurrent epigastric pain had an ultrasound done in 12/17 which was negative. Pain is constant epigastric areas patient for last 3 months no relation with food no nausea no vomiting nose weight loss. Patient does have a strong family history of breast cancer. Also history of pancreatic cancer in her cousins but patient's previous CT scan on 12/[address] scan of the abdomen pelvis revealed: 1. Multiple new peripherally enhancing hepatic lesions, most concerning for metastatic disease. 2. A 1.5 cm hypoattenuating soft tissue focus along the cephalad margin of the pancreatic body is new as compared to prior and may correspond to an adjacent enlarged lymph node or a primary pancreatic lesion. 3. A few new pulmonary nodules at the lung bases which are concerning for metastatic disease in the context of the new hepatic lesions. 4. Borderline enlarged retroperitoneal lymph nodes. Database: From 08/22: CBC: WBC 7.8, HGB 14.3, HCT 41.9, PLT 201. CMP: Lytes WNL, BUN 10, INSTRUMENT REPAIR SPECIALIST 0.78. LFTs: 0.2/85/37/46. Albumin 4.2. Calcium 9.8. CA 27.29: 71. She had abdominal pain. The oxycodone helped. Liver Mets are likely related to the breast cancer. I proceeded with further evaluation. 08/24 MRI of the abdomen revealed: 1.3 x 1.6 x 1.8 cm mass in the body of the pancreas. No dilatation of the main pancreatic duct. There are numerous peripherally enhancing hepatic masses. There are enlarged gastrohepatic ligament and retroperitoneal lymph nodes. This likely represents metastatic disease. l checked CA 19-9: 18. l proceeded with a PET scan for restaging purposes. She had a biopsy of the liver lesion on 09/06. It revealed: Poorly differentiated carcinoma consistent with pancreatic primary. She saw Dr. Landry Perez at [facility] on 09/20/23. His recommendation was to proceed with FOLFIRINOX based palliative chemotherapy. She underwent chemotherapy teaching. She was started on it on 09/28/23. Here for cycle 6. She has been getting the chemo treatments every 2 weeks. However she would like to go away to [place], so will adjust her schedule accordingly. She had a CT chest and abdomen for re-staging on November 26. This revealed: IMPRESSION: 1. Significantly diminished size and number of lung nodules. 2. Significant reduction in size of liver metastases. 3. Stable left adrenal gland nodule. 4. Right adnexal cyst. 5. Splenomegaly. 6. Port-A-Cath in place. This is great news. PLAN: Will forward the results to Dr. Perez. Will continue on the current regimen. She would like a break from treatment. I asked her to get another 3 months of treatment and then, hopefully fall goes well she can have a few weeks off. She will return in a couple of weeks for a follow-up visit All her questions were answered to her satisfaction. Thank you, CC: Dr. Dutta. Dr. Enriquez. - Time Spent With Patient Time Spent with Patient (in minutes): 30
--- NOTE | 2023-12-07 12:24 | MHC.HEMONC ---
Addendum entered by Altagracia Alexandre RN 12/07/23 12:56: pt requesting a break at some point per dr butler if pt continues tx q2w for the next 3 months pt can take a break during the summer. pt also would like to take a trip to [place] in the next few months during that time pt may delay treatment 3 weeks Original Note: pt doing well. no blood returning from port, blood sheath noted in past. flushing well and no pain, ok to use. follow up with dr butler CT results reviewed continue with treatment as ordered at this time
[2023-12-07] MEDS: Leucovorin Calcium 700 MG in Dextrose 5 % 250 ML 190 MG IV (13:26)
[2023-12-09] MEDS: Heparin Sodium,Porcine Flush 500 UNIT/5 ML SYRINGE IVFLUSH (13:10)
[2023-12-09 13:17] VITALS: BP 92/52; PULSE 87; RESP 17; TEMP 36.7; O2SAT 97
[2023-12-09] MEDS: 0.9 % Sodium Chloride 500 ML IV (13:27)
--- NOTE | 2023-12-09 13:31 | MHC.HEMONC ---
Addendum entered by Lisa Paz RN 12/09/23 13:32: Hydration NS 500ml IV infusing. Reported off to [facility]. Original Note: Here for pump take down. Pt feeling tired but well. Pump verified at zero and disconnected. Pt
--- NOTE | 2023-12-14 10:44 | HE.ONCSEC ---
CT SCAN FAXED TO DR. FEDERICO SUMMERS
[2023-12-16 15:06] VITALS: BP 124/90; PULSE 114; RESP 18; TEMP 36.6; O2SAT 98
--- NOTE | 2023-12-16 15:45 | MHC.HEMONC ---
Pt here for complaints of swelling in right side of neck. States noticed swelling yesterday-states area is tender to touch. Large edematous area noted right lateral neck. Right arm and hand discolored when compared to left arm and hand. No edema noted in either arm. Dr Torres into see pt. Vital signs as noted. Pt to radiology via wheelchair for chest x-ray, ultrasound soft tissue head and neck,venous duplex study-pt notified of plan
[2023-12-21 08:21] VITALS: BP 109/72; PULSE 92; RESP 18; TEMP 36.4; O2SAT 98; BMI 28.2
[2023-12-21 08:42] LABS: MANUAL DIFF FLAG NO
[2023-12-21 08:57] LABS: Basophils Percent Auto 0.5 % (0-2); Eosinophils Absolute Auto 0.1 X10*3/uL (0.0-0.4); Eosinophils Percent Auto 1.7 % (0-4); Hematocrit 37.7 % (37.0-47.0); Hemoglobin 12.9 g/dl (12.0-16.0); Imm Gran Abs Auto 0.18 X10*3/uL (0.00-0.03); Imm Gran Pct Auto 3.1 % (0.0-0.4); Lymphocytes Percent Auto 17.3 % (20-40); Mean Corpuscular HGB Conc 34.2 g/dl (31.0-35.0); Mean Corpuscular Hemoglobin 30.1 pg (27.0-33.0); Mean Corpuscular Volume 87.9 fL (80.0-98.0); Mean Platelet Volume 9.1 fL (9.4-12.3); Monocytes Absolute Auto 0.8 X10*3/uL (0.1-1.2); Neutrophils Absolute Auto 3.7 x10*3/uL (2.0-8.3); Neutrophils Percent Auto 63.4 % (45-73); Platelet Count 104 X10*3/uL (160-400); Red Blood Count 4.29 X10*6/uL (4.20-5.50); Red Cell Distribution Width 22.2 % (11.0-16.0); White Blood Count 5.9 X10*3/uL (4.8-10.8)
[2023-12-21 09:11] LABS: Alanine Aminotransferase 42 U/L (0-31); Albumin Level 3.8 g/dL (3.5-5.0); Alkaline Phosphatase 141 U/L (39-117); Anion Gap 12 (12-20); Aspartate Amino Transferase 29 U/L (5-31); Bilirubin Total 0.4 mg/dL (0.0-1.0); Blood Urea Nitrogen 5 mg/dL (9-16); Calcium 8.8 mg/dL (8.4-10.2); Carbon Dioxide 23 mmol/L (22-29); Chloride 109 mmol/L (96-108); Creatinine Clr Calc Pharmacy 88.1; Estimated Glomerular Filt Rate > 60; Glucose Random 139 mg/dL (60-115); Potassium 3.2 mmol/L (3.3-5.1); Sodium 141 mmol/L (135-145); Total Protein 6.3 g/dL (6.5-8.0)
[2023-12-21 09:30] LABS: HBsAGNum1 0.74 S/CO (0.00-0.99); Hepatitis B Core Antibody Nonreactive (Nonreactive); Hepatitis B Surface Antigen Negative (Negative); ~Hepatitis B Surface Antibody REACTIVE (Nonreactive)
[2023-12-21] MEDS: Acetaminophen 325 MG TABLET 650 MG PO (09:30)
[2023-12-21] MEDS: dexAMETHasone sod phosphate/NS 12 MG/50 ML PIGGYBACK 200 MG IV (09:30)
[2023-12-21] MEDS: Famotidine/PF 20 MG/2 ML VIAL IVPUSH (09:31)
[2023-12-21] MEDS: Atropine Sulfate 1 MG/ML VIAL 0.5 MG SUBCUT (09:31)
--- NOTE | 2023-12-21 09:52 | MHC.HEMONC ---
pt report swelling at neck is improving. pt educated on blood thinners and to watch for bleeding. ok to use port this treatment and pt will get revision next week. k3.2 pt given a list of foods with potassium content
[2023-12-21] MEDS: Fosaprepitant Dimeglumine 150 MG in 0.9 % Sodium Chloride 145 ML 300 MG IV (09:57)
--- NOTE | 2023-12-21 15:15 | MHC.HEMONC ---
treatment finished. Port flushed with saline. No blood return. Documented Fibrin sheath. 5FU push given and home with 5FU pump. Pt has discharge summary. Declined wheel chair. Pt departed ONC with steady gait.
[2023-12-23 13:56] VITALS: BP 103/71; PULSE 86; RESP 18; TEMP 36.4; O2SAT 100; BMI 28.2
[2023-12-23] MEDS: Heparin Sodium,Porcine Flush 500 UNIT/5 ML SYRINGE IVFLUSH (13:56)
[2023-12-23] MEDS: 0.9 % Sodium Chloride 500 ML IV (14:00)
--- NOTE | 2023-12-23 15:23 | MHC.HEMONC ---
Pump take down- confirmed reservoir volume zero. Neulasta 6mg s/c administered to right upper arm and well tolerated. NS 500cc infused over one hour. Port flushed with Heparin and de-accessed.
--- NOTE | 2023-12-27 15:57 | PM.EVENT ---
Diagnosis: Pancreatic carcinoma. Current therapy: FOLFIRINOX cycle 6 on 12/07. Patient came in today for an unscheduled visit. She noted her port site to be red. It is mildly tender. She denies any fever nor chills. ASSESSMENT AND PLAN: 48-year-old lady with recently noted thrombosis, and pulmonary embolism. She has been started on Eliquis. The original plan was to proceed with revision of the Port-A-Cath. Now with the concern for infection, plan is to remove it. This is scheduled for tomorrow by IR. She will have a new port placed on tuesday 01/02, once she is stable. Thank you,
--- NOTE | 2023-12-27 16:15 | MHC.HEMONC ---
Patient arrived to department to report that port site was red and tender to touch. Patient stated this started over weekend. Denies discharge to site or fever. Dr. Torres notified and in to assess area. She will update radiologist. Order placed for antibiotic and interventional radiology called. Patient scheduled to have port removed on 12/27. Radiology will call with further instructions.
--- NOTE | 2023-12-30 15:03 | HO.HEMONCPA ---
Addendum entered by Marie Becerra 12/31/23 11:52: PA APPROVED FOR UDENYCA [id number] AND EMEND [id number] AUTH # [id number] DOS 12/30/23 - 12/29/24 26 VISITS Neulasta not preferred changed to Udenyca [id number] Addendum entered by Marie Becerra 12/31/23 10:15: Spoke with Ángela from [facility] Neulasta not preferred changed to Udenyca [id number] she will fax authorization Original Note: PA PENDING FOR EMEND [id number] AND NEULASTA [id number] AWAITING DECISION FROM [facility] NO PA NEEDED FOR OXALIPLATIN, LEUCOVORIN, IRINOTECAN AND FLUOROURACIL PER [facility] 2023 NO PA REQUIRED LIST FROM WEBSITE
[2024-01-04 08:35] VITALS: BP 117/68; PULSE 104; RESP 18; TEMP 36.6; O2SAT 98; BMI 27.6
[2024-01-04 08:48] LABS: MANUAL DIFF FLAG NO
[2024-01-04 08:53] LABS: Basophils Percent Auto 0.3 % (0-2); Eosinophils Percent Auto 0.1 % (0-4); Hematocrit 38.6 % (37.0-47.0); Hemoglobin 13.1 g/dl (12.0-16.0); Imm Gran Abs Auto 0.14 X10*3/uL (0.00-0.03); Imm Gran Pct Auto 1.4 % (0.0-0.4); Lymphocytes Absolute Auto 1.3 X10*3/uL (1.2-4.9); Lymphocytes Percent Auto 12.6 % (20-40); Mean Corpuscular HGB Conc 33.9 g/dl (31.0-35.0); Mean Corpuscular Hemoglobin 30.6 pg (27.0-33.0); Mean Corpuscular Volume 90.2 fL (80.0-98.0); Mean Platelet Volume 9.4 fL (9.4-12.3); Monocytes Absolute Auto 1.1 X10*3/uL (0.1-1.2); Monocytes Percent Auto 10.8 % (2-11); Neutrophils Absolute Auto 7.6 x10*3/uL (2.0-8.3); Neutrophils Percent Auto 74.8 % (45-73); Platelet Count 81 X10*3/uL (160-400); Red Blood Count 4.28 X10*6/uL (4.20-5.50); White Blood Count 10.2 X10*3/uL (4.8-10.8)
[2024-01-04 09:07] LABS: Alanine Aminotransferase 53 U/L (0-31); Albumin Level 3.9 g/dL (3.5-5.0); Alkaline Phosphatase 160 U/L (39-117); Anion Gap 12 (12-20); Aspartate Amino Transferase 38 U/L (5-31); Bilirubin Total 0.4 mg/dL (0.0-1.0); Blood Urea Nitrogen 7 mg/dL (9-16); Calcium 9.1 mg/dL (8.4-10.2); Carbon Dioxide 24 mmol/L (22-29); Chloride 108 mmol/L (96-108); Creatinine Clr Calc Pharmacy 85.9; Estimated Glomerular Filt Rate > 60; Glucose Random 131 mg/dL (60-115); Potassium 3.8 mmol/L (3.3-5.1); Sodium 140 mmol/L (135-145); Total Protein 6.8 g/dL (6.5-8.0)
[2024-01-04 09:29] LABS: HBc Num1 0.08 S/CO (0.00-0.79); HBsAGNum1 0.68 S/CO (0.00-0.99); Hepatitis B Core Antibody Nonreactive (Nonreactive); Hepatitis B Surface Antigen Negative (Negative); ~Hepatitis B Surface Antibody REACTIVE (Nonreactive)
[2024-01-04] MEDS: Acetaminophen 325 MG TABLET 650 MG PO (09:37)
[2024-01-04] MEDS: Atropine Sulfate 1 MG/ML VIAL 0.5 MG SUBCUT (09:38)
[2024-01-04] MEDS: Famotidine/PF 20 MG/2 ML VIAL IVPUSH (09:38)
[2024-01-04] MEDS: dexAMETHasone sod phosphate/NS 12 MG/50 ML PIGGYBACK 200 MG IV (09:38)
[2024-01-04] MEDS: Fosaprepitant Dimeglumine 150 MG in 0.9 % Sodium Chloride 145 ML 300 MG IV (09:39)
--- NOTE | 2024-01-04 11:12 | MHC.HEMONC ---
pt really wants to take a break pre dr butler if scan continue to be good in february pt can have the summer off. pt aware is she developed any pain during that time to come in
[2024-01-04] MEDS: Leucovorin Calcium 690 MG in Dextrose 5 % 250 ML 190 MG IV (14:01)
[2024-01-06] MEDS: Heparin Sodium,Porcine Flush 500 UNIT/5 ML SYRINGE IVFLUSH (13:36)
[2024-01-06 13:44] VITALS: BP 156/63; PULSE 100; RESP 18; TEMP 36.2; O2SAT 98
--- NOTE | 2024-01-06 13:46 | MHC.HEMONC ---
Pt here for chemo pump take down and Udenyca injection (TAHIRA alejandre til 12/29/24) Pt declines IV hydration today-appointment scheduled for next week. Port flushed with heparin and de accessed. Udenyca SC given in left arm per pt request-tolerated well. No edema or redness at site after injection. Pt aware of next appointment. Declines wheelchair for discharge
--- NOTE | 2024-01-11 14:52 | MHC.HEMONC ---
Triage call-pt called to cancel appointment today
--- NOTE | 2024-01-17 16:24 | MHC.HEMONC ---
Triage call-pt called stating she was pulled to ground by her [place] dog one week ago. States she injured her ribs-does not believe ribs are broken. States she took an oxycodone for pain with relief. States continues with numbness and tingling in hands and feet. Pt agreeable to come into clinic for chemotherapy tomorrow.
[2024-01-18 08:19] VITALS: BP 119/72; PULSE 107; RESP 18; TEMP 36.1; O2SAT 100; BMI 27.2
[2024-01-18 08:39] LABS: MANUAL DIFF FLAG NO
[2024-01-18 08:54] LABS: Basophils Absolute Auto 0.1 X10*3/uL (0.0-0.2); Basophils Percent Auto 0.4 % (0-2); Eosinophils Percent Auto 0.1 % (0-4); Hemoglobin 13.6 g/dl (12.0-16.0); Imm Gran Pct Auto 0.8 % (0.0-0.4); Lymphocytes Absolute Auto 1.1 X10*3/uL (1.2-4.9); Mean Corpuscular Hemoglobin 31.6 pg (27.0-33.0); Mean Corpuscular Volume 92.8 fL (80.0-98.0); Mean Platelet Volume 9.7 fL (9.4-12.3); Monocytes Absolute Auto 1.3 X10*3/uL (0.1-1.2); Monocytes Percent Auto 10.2 % (2-11); Neutrophils Percent Auto 79.5 % (45-73); Platelet Count 104 X10*3/uL (160-400); Red Blood Count 4.31 X10*6/uL (4.20-5.50); Red Cell Distribution Width 18.9 % (11.0-16.0); White Blood Count 12.5 X10*3/uL (4.8-10.8)
[2024-01-18 09:20] LABS: Alanine Aminotransferase 57 U/L (0-31); Albumin Level 3.9 g/dL (3.5-5.0); Alkaline Phosphatase 162 U/L (39-117); Anion Gap 13 (12-20); Aspartate Amino Transferase 53 U/L (5-31); Bilirubin Total 0.5 mg/dL (0.0-1.0); Blood Urea Nitrogen 8 mg/dL (9-16); Calcium 9.3 mg/dL (8.4-10.2); Carbon Dioxide 25 mmol/L (22-29); Chloride 106 mmol/L (96-108); Creatinine Clr Calc Pharmacy 84.1; Estimated Glomerular Filt Rate > 60; Glucose Random 140 mg/dL (60-115); HBS Num1 > 1000.00 mIU/mL (0-7.99); HBc Num1 0.06 S/CO (0.00-0.79); HBsAGNum1 0.44 S/CO (0.00-0.99); Hepatitis B Core Antibody Nonreactive (Nonreactive); Hepatitis B Surface Antigen Negative (Negative); Potassium 4.4 mmol/L (3.3-5.1); Sodium 140 mmol/L (135-145); Total Protein 7.1 g/dL (6.5-8.0); ~Hepatitis B Surface Antibody REACTIVE (Nonreactive)
[2024-01-18] MEDS: Acetaminophen 325 MG TABLET 650 MG PO (09:54)
[2024-01-18] MEDS: Famotidine/PF 20 MG/2 ML VIAL IVPUSH (09:55)
[2024-01-18] MEDS: Atropine Sulfate 1 MG/ML VIAL 0.5 MG SUBCUT (09:57)
[2024-01-18] MEDS: dexAMETHasone sod phosphate/NS 12 MG/50 ML PIGGYBACK 200 MG IV (09:57)
[2024-01-18] MEDS: Fosaprepitant Dimeglumine 150 MG in 0.9 % Sodium Chloride 145 ML 300 MG IV (10:19)
[2024-01-18] MEDS: Leucovorin Calcium 690 MG in Dextrose 5 % 250 ML 190 MG IV (13:46)
--- NOTE | 2024-01-18 15:42 | MHC.HEMONC ---
Pt here for C9D1 FOLFIRI (OXALIPLATIN 50%) Port accessed with blood return noted. Labs drawn from port-specimen to lab. Pt states she has nausea after treatments with some diarrhea at times. States hands and feet remain 'numb with cold sensations constantly. States right rib pain from fall last week when walking with dog is improving-no bruising noted at site. Continues with congested cough at times-states she is still smoking. Lab results reviewed-okay to receive treatment today. Pre medicated with tylenol, dexamethasone, pepcid,emend, zofran, atropine sulfate sc right arm. Folfiri given as ordered-tolerated well. Home chemo pump attached as ordered. Discharge packet given with next appointment scheduled-pt to return on 01/20/24 for chemo pump take down and Udenyca injection. Pt instructd to call with any concerns. Escorted to front of hospital via wheelchair.
[2024-01-20] MEDS: Heparin Sodium,Porcine Flush 500 UNIT/5 ML SYRINGE IVFLUSH (13:24)
--- NOTE | 2024-01-20 13:44 | MHC.HEMONC ---
Pt here for pump take down and Udenyca injection (TAHIRA good till 01/18/25). port flushed with 0.9% NS-labs drawn from port as ordered. Port flushed with heparin and de accessed. Udenyca SC given in right arm per pt request. No edema or redness at site after injection-pt aware of next appointment
[2024-01-21 15:38] LABS: Carbohydrate Antigen 19-9 12 U/mL (<34)
--- NOTE | 2024-01-31 12:16 | MHC.HEMONC ---
Triage call- Pt called reporting increase in neuropathy in hands, feet and up legs. Legs are giving out. Asking to start break early. Discussed with Dr Torres and will omit Oxaliplatin on 01/31 and 02/14. Pt will then have scan and be on a break.
[2024-02-01 08:18] VITALS: BP 115/76; PULSE 98; RESP 18; TEMP 36.4; O2SAT 100; BMI 26.7
[2024-02-01 08:47] LABS: MANUAL DIFF FLAG NO
--- NOTE | 2024-02-01 08:53 | PM.HEMONCPN ---
Medical Summary - Medical Summary Date of Service: 02/01/24 Chief complaint: FOLLOW-UP FOR: PANCREATIC CARCINOMA. Primary Care Provider: Carlyn Enriquez MD Medical Summary: DIAGNOSIS: LEFT BREAST CANCER UPPER OUTER QUADRANT. CURRENT THERAPY: STATUS POST LUMPECTOMY ON 04/29/21. Pathology revealed: Invasive ductal carcinoma, high grade, 3 cm, with small satellite nodules x2 approximately 0.1 cm. DCIS nuclear grade 3 with comedonecrosis and calcifications. No lymphovascular invasion. Margins negative for invasive and in-situ ductal carcinoma, however invasive ductal carcinoma is less than 0.1 cm to the posterior margin and approximately 0.1 cm to the medial and lateral margins. Re-excision negative. ER negative/IA negative and HER2 Vonda negative. Three sentinel nodes were negative. Recieved weekly carboplatin Taxol based chemotherapy. Cycle 1 on 06/03/21. Completed Cycle 6, day 15, on November 04. Now with metastatic pancreatic carcinoma with liver metastases. Started on FOLFIRINOX 09/28/23. Second dose 10/12. Third dose 10/26/23. Fifth dose 11/23. Here for 10th dose. Interval History Interval history: Marah Rivera is a pleasant 48 year old lady, here for a follow-up visit. She tells me the last couple of weeks were rather rough for her. She spent quite a bit of time in bed. She has noticed numbness in her hands and the feet. This goes up to the knees. Couple times a knees buckled as if the legs were giving out on her. She has noticed that her gait is even different. Her energy level has been rather low. She does take a couple of naps a day. Although it did improve over the past 3-4 days. Appetite is so-so. She had lost 15 lbs of weight, in the beginning but now it is stable. Her hair is thinning out, so she just trimmed it short. No fever nor chills. She denies headaches. Occasional dizziness. She gets exertional dyspnea. Echocardiogram: normal LVEF. She denies frequency of micturition. She gets generalized aches and pains. She has been trying to stay active. She is in good spirits. Rest of the ROS is normal. INTERIM HISTORY: She was seen in the ED on 08/22. Narrative: Patient with chronic recurrent epigastric pain had an ultrasound done in 12/17 which was negative. Pain is constant epigastric areas patient for last 3 months no relation with food no nausea no vomiting nose weight loss. Patient does have a strong family history of breast cancer. Also history of pancreatic cancer in her cousins but patient's previous CT scan on 12/[address] scan of the abdomen pelvis revealed: 1. Multiple new peripherally enhancing hepatic lesions, most concerning for metastatic disease. 2. A 1.5 cm hypoattenuating soft tissue focus along the cephalad margin of the pancreatic body is new as compared to prior and may correspond to an adjacent enlarged lymph node or a primary pancreatic lesion. 3. A few new pulmonary nodules at the lung bases which are concerning for metastatic disease in the context of the new hepatic lesions. 4. Borderline enlarged retroperitoneal lymph nodes. She underwent a biopsy of the liver lesion on 09/06. Unfortunately it revealed: Poorly differentiated carcinoma. Morphologic and immunophenotypic features are consistent with pancreatic primary. She was seen by Dr. Landry Perez, at [facility], on 09/20. RECENT HISTORY: She was actually seen in the ED on 12/19/22. The note: 47-year-old female who presents emergency department for evaluation of right-sided abdominal pain. She states that approximately 2-3 weeks prior she was having very bad heartburn and was using Tums frequently. She states that over the last 1 and half weeks she has been having constant, right-sided abdominal pain. She points to her right upper quadrant area when asked to localize the pain. She states the pain was a constant dull pain. She did have an outpatient ultrasound done on 12/18/2022 which revealed no evidence of cholecystitis or cholelithiasis. She states that last night around 19:00 hours she ate a hot dog. At around 22:00 hours the right upper quadrant pain got worse and became a sharp pain. The pain does radiate to her back. She had associated nausea and has been dry heaving. She denied fever, chills, rhinorrhea, sore throat. She states she has had a chronic cough for weeks but she describes attributes this to a smoker's cough. She states that she has had an increase amount of gas and feels bloated. Patient does have a history breast cancer and she states she had a left lumpectomy, complete chemotherapy in October of 2021 and radiation therapy in April of 2022. bloated feeling. Vital signs were normal. Physical exam did reveal moderate right upper quadrant tenderness a mild right lower quadrant tenderness. I ordered the nursing staff to access the patient's Port-A-Cath I ordered a CBC, CMP, PT/INR, PTT, lipase, lactic acid urinalysis, urine test, COVID-[address] scan of the abdomen pelvis with IV contrast. Patient's pain and nausea will be treated with Toradol 15 mg IV and Zofran 4 mg IV. She was also ordered to get normal saline x1 L. The care was turned over to my colleague, Dr. Alannah Lockwood. Differential Diagnosis Differential diagnosis includes but is not limited to cholecystitis, appendicitis, pancreatitis, metastatic disease, gastritis, viral syndrome, esophagitis. CT scan of the abdomen/pelvis revealed: No acute findings identified in the abdomen/pelvis. Ultrasound of the abdomen from 12/18: IMPRESSION: No evidence of cholelithiasis or cholecystitis. Overall increased echogenicity within the liver may be consistent with fatty change. No free fluid She saw her mingler operator doctor, Dimitris. An ultrasound was done which revealed a cyst in the ovary. She did blood work and reassured her. Interim history: She completed cycle 6, day 15, of Carbo/Taxol weekly on 10/27/21. She came here after a long hiatus. She had some social/mental issues. She was seen in the emergency room on 11/10: Narrative: This is a 46-year-old female was brought in by ambulance. The patient was in her car at [facility] and apparentlywas acting bizarrely therefore personnel at [facility] called the ambulance. Patient herself is not forthcoming with regard to history. She is lying on her side with her hand over her mouth and for his speech is difficult to understand due to it being muffled but her hand. Patient states that her her family has been out to get her. She mentioned something about crisis evaluation. She denies alcohol or drug use. She said she feels that she is very hot. She notes she is being treated for breast cancer. She states she has had low platelets in the past. Patient also notes that she is DNR ?for any number of reasons? The patient appears to be manic, she is shouting at people that walk by in her in the emergency department, she is making bizarre statements such as she is a DNR but she does not have the paperwork and she does not care and wants to . I suspect that the patient has either bipolar disorder schizophrenia and is not taking her medications therefore she is a danger to herself and I am placing her on a Section 12. The patient will be kept in the emergency department until she can be evaluated by our crisis team. The patient refused to let me give her physical exam. At the end of my shift, the patient's care was turned over to my colleague, Dr. Soto. 01/15, she was seen by her primary care doctor Mina: She has history bipolar disorder, recently discharged from [facility] 01/19/2022,admitted for acute john with psychosis. She has history invasive ductal ca of left breast, and diagnosed to have diastolic dysfunction. She states that she is currently being seen by Dr. Trevino at [facility] for her cardiac follow-up, and will be transferred to [facility] for a double mastectomy. Patient states that she needs to be seen by psychiatrist. She was seen and evaluated by our mental health specialist, Rachael, who reviewed her discharge from recent psychiatric admission, and she was reminded that she is already has seen by [facility] a psychiatrist at [place] and has a follow-up appointment. Patient was given the number to contact her psychiatrist to schedule an appointment. She states that she has been feeling well at present time with no complaints of any chest pain, no suicidal ideations. She is trying to apply for disability, has been denied 4 times. Previous history: 1. She tells me, 1 of her teeth broke while biting into something. She had seen the dentist. She may need to have the tooth removed. 2. She had an abnormal mammogram. This was done on ,02/28 and revealed: Left breast has new mass, posterior upper outer quadrant in area of palpable in measuring 1.7 cm. Ultrasound demonstrated: Heterogenous macro lobulated hypoechoic mass posterior upper outer quadrant measurin.8 and 1.4 time 1.7 cm. Left axillary nodes showing normal fatty hilus and normal color. 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 She had her lumpectomy done on 04/29. She tells me that her surgery went well. The incision does appear to be healing, the open area has closed up. No more drainage. She had a follow-up appointment with Dr. Dutta. 3. Cardiac issues: She has had some cardiac issues. She was seen by Dr. Morse who diagnosed diastolic dysfunction. She went to Dr. Trevino in [place] who did right heart catheterization. He mention some muscular dysfunction/autonomic dysfunction. No treatment was suggested. Clinical trial was offered that she declined. She actually had an appointment with Dr. Brewer. 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 She still has her regular periods. Family history: Her mom was diagnosed with breast cancer at 38. She lived for 7 years. of metastatic disease. 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 She is not . She has no children. She smokes half a pack a day. She drinks very little alcohol. Review of Systems - Constitutional Reports system reviewed and no additional complaints, except as documented, Reports lack of energy, Reports malaise, Reports weight loss - Eyes Reports system reviewed and no additional complaints, except as documented - ENT Reports system reviewed and no additional complaints, except as documented - Cardiovascular Reports system reviewed and no additional complaints, except as documented - Respiratory Reports no additional respiratory complaints - Gastrointestinal Reports system reviewed and no additional complaints, except as documented - Genitourinary Reports no additional female genitourinary complaints - Musculoskeletal Reports system reviewed and no additional complaints, except as documented - Integumentary/Breasts Skin/Breast: Reports no additional skin complaints - Neurologic Reports system reviewed and no additional complaints, except as documented, Reports dizziness, Reports numbness, Reports paresthesias, Reports weakness, Denies headache(s) - Psychiatric Reports system reviewed and no additional complaints, except as documented - Endocrine Reports no additional endocrine complaints - Hematologic/Lymphatic Reports system reviewed and no additional complaints, except as documented - Allergic/Immunologic Reports system reviewed and no additional complaints, except as documented PMFSH Medical History: Medical History (Last Reviewed 09/21/23 @ 14:44 by Helen Espinosa) Diastolic dysfunction Exertional dyspnea Family history of breast cancer gene mutation in first degree relative Hx of cyst of breast Hx of lipoma Impaired fasting glucose Invasive ductal carcinoma of left breast Skin lesion of left upper extremity Functional capacity: independent ambulation Patient : No Family History: Family History (Last Reviewed 09/21/23 @ 14:44 by Helen Espinosa) Mother Breast cancer, Onset Age: 38 Father CAD (coronary artery disease) Hyperlipidemia HTN (hypertension) History of cardiac defibrillator placement Pacemaker Family/Other Lymphoma Paternal Grandmother Dementia Sister Substance use disorder Mental health disorder Surgical History: Surgical History (Last Reviewed 09/21/23 @ 14:44 by Helen Espinosa) Endometriosis History of excision of mass History of lumpectomy of left breast Social History: Social History (Last Reviewed 09/21/23 @ 14:44 by Helen Espinosa) Living Situation History: Household Members: Family Housing: House Are you a primary continuum of care manager to a significant other at home: No Do you presently have visiting nurse or other home services: No Alcohol History Details: 1. How often do you have a drink containing alcohol?: b. Monthly or less 2. How many drinks containing alcohol do you have on a typical day when you are drinking?: a. 1 or 2 Tobacco History: Patient Tobacco Use Status: Current everyday Tobacco Tobacco use type: Cigarette Cigarette Packs Per Day: 0.5 e-Cigarette/Vaping Use: Never Used Substance Use History: Use of substances other than those prescribed or required for medical reasons: No Substance Use Type: Marijuana Domestic Abuse History: Have you been hit, kicked, punched, or otherwise hurt by someone within the past year? If so, by whom?: No Do you feel safe in your current relationship?: Yes Advance Directives: Advance Directives Date on File: 11/26/21 Homicidal Assessment: Do you have thoughts of harming others: None Do you have a plan to hurt others: No Plan Do you have the means to hurt others: No Nutrition Assessment: Recently lost weight without trying: No Eating poorly because of decreased appetite: No Patient : No Occupation Assessmet: service: No Current occupational status: unemployed Oncology Screenings - ECOG Performance Status ECOG Performance Status: 0 Home Medications and Allergies Current Medications: Current Medications Acetaminophen (Acetaminophen 325 Mg Tablet) 650 mg PO ONCE GIDEON Stop: 02/01/24 23:59 Atropine Sulfate (Atropine Sulfate 1 Mg/Ml Vial) 0.5 mg SUBCUT ONCE GIDEON Stop: 02/01/24 23:59 Famotidine (Famotidine/Pf 20 Mg/2 Ml Vial) 20 mg IVPUSH ONCE GIDEON Stop: 04/09/24 23:59 Dexamethasone Sodium Phosphate (Decadron) 12 mg in 50 mls @ 200 mls/hr IV ONCE GIDEON Stop: 02/01/24 23:59 Ondansetron HCl (Zofran) 16 mg in 50 mls @ 200 mls/hr IV ONCE GIDEON Stop: 02/01/24 23:59 Fosaprepitant 150 mg/ Sodium (Chloride) 150 mls @ 300 mls/hr IV ONCE GIDEON Stop: 02/01/24 23:59 Home Medications ?Medication ?Instructions ?Recorded ?Confirmed ?Type metoprolol tartrate 25 mg tablet 25 mg PO BID 01/14/21 02/01/24 History nitroglycerin 0.4 mg sublingual 0.4 mg sublingual Q5M PRN Chest 01/14/21 02/01/24 History tablet Pain aripiprazole 10 mg tablet (Abilify) 10 mg PO DAILY psychosis 01/16/22 02/01/24 History hydroxyzine HCl 10 mg PO DAILY PRN Anxiety 02/15/23 02/01/24 History multivitamin with minerals-folic 0.4 tab PO DAILY 08/12/23 02/01/24 History acid 0.4 mg tablet (One-A-Day Women's 50 Plus) Allergies Allergy/AdvReac Type Severity Reaction Status Date / Time bee pollen [BEE STINGS] Allergy Severe ANAPHYLAXIS Verified 02/01/24 08:42 Penicillins Allergy Intermediate Unknown Verified 02/01/24 08:42 danazol Allergy Unknown hand Verified 02/01/24 08:42 swelling sertraline [Zoloft] AdvReac Unknown increasedi Verified 02/01/24 08:42 rritability codeine AdvReac Unknown nausea Uncoded 02/01/24 08:42 prilosec AdvReac Unknown bloating Uncoded 02/01/24 08:42 Exam Vital signs: Vital Signs Temp 97.6 F 02/01/24 08:18 Pulse 98 02/01/24 08:18 Resp 18 02/01/24 08:18 BP 115/76 02/01/24 08:18 Pulse Ox 100 02/01/24 08:18 O2 Del Method Room Air 02/01/24 08:18 Intake & Output 01/31/24 02/01/24 02/01/24 18:59 06:59 18:59 Other: Weight 66.1 kg Weight in Grams 54425 Weight 66.1 kg BMI result Body Mass Index 26.7 - Constitutional Present: mild distress - Routine HEENT Exam Head: Present: normocephalic Eye: Present: normal appearance ENT: Present: mucous membranes moist - Routine Neck Exam Present: full ROM - Routine Respiratory Exam Present: CTAB - Routine Cardiovascular Exam Cardiovascular: Present: RRR, S1, S2. Absent: rubs, S3, S4 - Routine Abdominal Exam Present: normal bowel sounds, nontender. Absent: diminished bowel sounds, organomegaly - Routine Rectal Exam Patient deferred: digital exam - Routine Extremities Exam Absent: tenderness - Routine Back/Spine/Pelvis Exam Back/Spine: Present: full ROM - Routine Skin Exam Present: intact, normal turgor - Routine Neurological Exam Present: alert, oriented X3 - Detailed Neurological Exam: Coma Scale Eye Opening: Spontaneous (4) - Routine Psychiatric Exam Present: normal affect Data - Labs CBC & Chem 7: 02/01/24 08:25 02/01/24 08:25 Assessment and Plan Patient Active problem list reviewed?: Yes (1) Breast cancer of upper-outer quadrant of left female breast Status: Resolved Assessment and plan: This is a pleasant 45-year-old lady with recent diagnosis of left-sided breast cancer upper outer quadrant. 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 Question is about neoadjuvant chemotherapy. Since the tumor size is small less than 2 cm., the nodes appear negative on the ultrasound. Would recommend upfront surgical resection for exact staging. She will need chemotherapy since she is triple negative. I discussed the case with Dr. Dutta, as well. She underwent a lumpectomy with sentinel node dissection. Her pathology revealed: Pathology revealed: Invasive ductal carcinoma, high grade, 3 cm, with small satellite nodules x2 approximately 0.1 cm. DCIS nuclear grade 3 with comedonecrosis and calcifications. No lymphovascular invasion. Margins negative for invasive and in-situ ductal carcinoma, however invasive ductal carcinoma is less than 0.1 cm to the posterior margin and approximately 0.1 cm to the medial and lateral margins. Re-excision negative. ER negative/IA negative and HER2 Vonda negative. Three sentinel nodes were negative. No lymphovascular invasion. Margins negative for invasive and in-situ ductal carcinoma, however invasive ductal carcinoma is less than 0.1 cm to the posterior margin and approximately 0.1 cm to the medial and lateral margins. Re-excision negative. ER negative/IA negative and HER2 Vonda negative. Three sentinel nodes were negative. She was deemed a candidate for adjuvant chemotherapy, being triple negative. Choices of chemotherapy included dose dense AC x4, followed by Taxol. However she does have a history of cardiac issues with diastolic dysfunction. In the situation I intended to avoid Adriamycin. She had an echocardiogram at [facility] few weeks prior which showed EF of 55%. Recent data suggest benefit of adjuvant carboplatin and Taxol, especially for triple negative disease. She had a Port-A-Cath placed to facilitate the chemotherapy. She got started on 06/03/21. She completed 6 cycles October,, without incident. Subsequently it appears that she had some mental breakdown. There is some history of bipolar disorder. She was inpatient at [facility] for a couple weeks. In November,, she developed COVID. She was at [facility] then transferred to [facility] for another couple weeks for psychiatric admission. It appears now that she is clinically stable. She had an appointment with pouch maker in [place] on February 25. She mentioned that she was considering a double mastectomy. I advised her to just get post lumpectomy radiation. She is concerned about dermatological toxicity related to radiation. She can at least meet with the radiation therapist and have her questions answered. She was referred for post lumpectomy radiation therapy. She preferred to go to [facility]. She finally completed the radiation 6 months ago. She had a mammogram on 08/19/2022 which was benign. Recently, she has had right upper quadrant/epigastric pain Fortunately the imaging is negative. She could have gastritis/ulcer disease. She was referred to GI, for further evaluation including endoscopy. Appointment was for 12/28. She saw Pb Anaya, her note: 47-year-old female multiple comorbidities referred for index screening colonoscopy presents with persistent acid reflux. Schedule EGD to r/o pud, nonulcer dyspepsia, esophagitis other endoscopic findings to account for his symptoms as well as screening colonoscopy. Discussed procedures, rare risks, need for escorted due to anesthesia, it in cardiac history, unclear will get anesthesia consult. Discuss MiraLax Gatorade split prep, literature given. She will have H pylori test if positive we will treat-otherwise pantoprazole 40 mg which has given her fairly good response in the past. Lately, she has had CP, and PVCs. An appt will be set up with Dr. Madrid, at her request. She had repeat mammogram, on 10 August. Stable postoperative and post treatment related changes to the left breast, with no new findings suspicious for malignancy. No suspicious findings right breast. Recommend continuing yearly mammography of both breasts to establish a 3 year post operative stability of the left breast. l checked a bone density at the same time. This revealed: 1. DIAGNOSIS: Osteopenia based on the lowest T-score value of -1.2 in the femoral neck applying World Health Organization criteria. 2. 10-YEAR FRACTURE RISK PREDICTION, FRAX: Major osteoporotic fracture (clinical spine, forearm, hip or shoulder) 4.0%. Hip fracture 0.4%. Ca 27.29: 20. She was seen in the ED on 08/22. Narrative: Patient with chronic recurrent epigastric pain had an ultrasound done in 12/17 which was negative. Pain is constant epigastric areas patient for last 3 months no relation with food no nausea no vomiting nose weight loss. Patient does have a strong family history of breast cancer. Also history of pancreatic cancer in her cousins but patient's previous CT scan on 12/[address] scan of the abdomen pelvis revealed: 1. Multiple new peripherally enhancing hepatic lesions, most concerning for metastatic disease. 2. A 1.5 cm hypoattenuating soft tissue focus along the cephalad margin of the pancreatic body is new as compared to prior and may correspond to an adjacent enlarged lymph node or a primary pancreatic lesion. 3. A few new pulmonary nodules at the lung bases which are concerning for metastatic disease in the context of the new hepatic lesions. 4. Borderline enlarged retroperitoneal lymph nodes. Database: From 08/22: CBC: WBC 7.8, HGB 14.3, HCT 41.9, PLT 201. CMP: Lytes WNL, BUN 10, CAR WHACKER 0.78. LFTs: 0.2/85/37/46. Albumin 4.2. Calcium 9.8. CA 27.29: 71. She had abdominal pain. The oxycodone helped. Liver Mets are likely related to the breast cancer. I proceeded with further evaluation. 08/24 MRI of the abdomen revealed: 1.3 x 1.6 x 1.8 cm mass in the body of the pancreas. No dilatation of the main pancreatic duct. There are numerous peripherally enhancing hepatic masses. There are enlarged gastrohepatic ligament and retroperitoneal lymph nodes. This likely represents metastatic disease. l checked CA 19-9: 18. l proceeded with a PET scan for restaging purposes. She had a biopsy of the liver lesion on 09/06. It revealed: Poorly differentiated carcinoma consistent with pancreatic primary. She saw Dr. Landry Perez at [facility] on 09/20/23. His recommendation was to proceed with FOLFIRINOX based palliative chemotherapy. She underwent chemotherapy teaching. She was started on it on 09/28/23. Here for cycle 6. She has been getting the chemo treatments every 2 weeks. However she would like to go away to [place], so will adjust her schedule accordingly. She had a CT chest and abdomen for re-staging on November 26. This revealed: IMPRESSION: 1. Significantly diminished size and number of lung nodules. 2. Significant reduction in size of liver metastases. 3. Stable left adrenal gland nodule. 4. Right adnexal cyst. 5. Splenomegaly. 6. Port-A-Cath in place. This is great news. I forwarded the results to Dr. Perez. Ca 19/9: 12. She had tolerated the treatment well up till now but, her neuropathy has bothered her with this last cycle. She actually called yesterday that she wanted to cancel her treatments and take a break. PLAN: I encouraged her to come in for the chemotherapy minus oxaliplatin. This should help the neuropathy to improve. She would like a break from treatment. I asked her to get this in the next treatment in, then she will be due for her scans in early February. hopefully if all goes well she can have the summer off. She will return in a couple of weeks for a follow-up visit All her questions were answered to her satisfaction. Thank you, CC: Dr. Dutta. Dr. Enriquez. - Time Spent With Patient Time Spent with Patient (in minutes): 30
[2024-02-01 08:54] LABS: Basophils Absolute Auto 0.1 X10*3/uL (0.0-0.2); Basophils Percent Auto 0.6 % (0-2); Eosinophils Percent Auto 0.1 % (0-4); Hematocrit 38.7 % (37.0-47.0); Hemoglobin 13.2 g/dl (12.0-16.0); Imm Gran Abs Auto 0.17 X10*3/uL (0.00-0.03); Imm Gran Pct Auto 1.8 % (0.0-0.4); Lymphocytes Absolute Auto 1.2 X10*3/uL (1.2-4.9); Lymphocytes Percent Auto 13.2 % (20-40); Mean Corpuscular HGB Conc 34.1 g/dl (31.0-35.0); Mean Corpuscular Hemoglobin 32.1 pg (27.0-33.0); Mean Corpuscular Volume 94.2 fL (80.0-98.0); Mean Platelet Volume 9.6 fL (9.4-12.3); Monocytes Absolute Auto 1.1 X10*3/uL (0.1-1.2); Monocytes Percent Auto 11.5 % (2-11); Neutrophils Absolute Auto 6.8 x10*3/uL (2.0-8.3); Neutrophils Percent Auto 72.8 % (45-73); Red Blood Count 4.11 X10*6/uL (4.20-5.50); Red Cell Distribution Width 16.8 % (11.0-16.0); White Blood Count 9.4 X10*3/uL (4.8-10.8)
[2024-02-01 09:06] LABS: Platelet Count 93 X10*3/uL (160-400)
[2024-02-01 09:07] LABS: Alanine Aminotransferase 39 U/L (0-31); Albumin Level 3.9 g/dL (3.5-5.0); Alkaline Phosphatase 166 U/L (39-117); Anion Gap 13 (12-20); Aspartate Amino Transferase 35 U/L (5-31); Bilirubin Total 0.4 mg/dL (0.0-1.0); Blood Urea Nitrogen 9 mg/dL (9-16); Calcium 9.2 mg/dL (8.4-10.2); Carbon Dioxide 23 mmol/L (22-29); Chloride 110 mmol/L (96-108); Estimated Glomerular Filt Rate > 60; Glucose Random 114 mg/dL (60-115); Potassium 3.8 mmol/L (3.3-5.1); Sodium 142 mmol/L (135-145); Total Protein 6.7 g/dL (6.5-8.0)
[2024-02-01] MEDS: Famotidine/PF 20 MG/2 ML VIAL IVPUSH (09:19)
[2024-02-01] MEDS: Acetaminophen 325 MG TABLET 650 MG PO (09:20)
[2024-02-01] MEDS: Atropine Sulfate 1 MG/ML VIAL 0.5 MG SUBCUT (09:20)
[2024-02-01] MEDS: dexAMETHasone sod phosphate/NS 12 MG/50 ML PIGGYBACK 200 MG IV (09:21)
[2024-02-01 09:32] LABS: HBS Num1 > 1000.00 mIU/mL (0-7.99); HBc Num1 0.06 S/CO (0.00-0.79); HBsAGNum1 0.28 S/CO (0.00-0.99); Hepatitis B Core Antibody Nonreactive (Nonreactive); Hepatitis B Surface Antigen Negative (Negative); ~Hepatitis B Surface Antibody REACTIVE (Nonreactive)
[2024-02-01] MEDS: Fosaprepitant Dimeglumine 150 MG in 0.9 % Sodium Chloride 145 ML 300 MG IV (09:41)
[2024-02-01] MEDS: Leucovorin Calcium 690 MG in Dextrose 5 % 250 ML 142.25 MG IV (10:38)
--- NOTE | 2024-02-01 13:46 | MHC.HEMONC ---
Pt here for C10D1 FOLFIRINOX (Oxaliplatin on hold secondary to neuropathy) Pt states she has some fatigue and nausea for few days after treatment with slight diarrhea. States biggest concern is neuropathy in both legs to knees, bilateral hands andmouth at times-Dr Torres notified of neuropathy concerns-plan to hold Oxaliplatin this cycle and next. Pt and pharmacy notified. Port accessed with blood return noted. Labs drawn from port-specimen to lab. Lab results reviewed-okay to receive treatment today. Pre medicated with tylenol, dexamethasone, pepcid, emend, zofran and atropine sulfate SC in right arm-tolerated well. Irinotecan, Leucovorin and 5 FU push given as ordered-tolerated well. Home chemo pump attached as ordered. Dr Torres into see pt. Pt hopes to take chemo vacation after next 2 cycles-Dr Torres aware. Next appointment scheduled-discharge packet given. Discharged to front of hospital via wheelchair. Instructed to call with any concerns-verbalizes understanding of information given
[2024-02-03] MEDS: Heparin Sodium,Porcine Flush 500 UNIT/5 ML SYRINGE IVFLUSH (13:27)
--- NOTE | 2024-02-03 13:37 | MHC.HEMONC ---
Pt here for chemo pump take down. Port flushed with 0.9% NS and heparin. Udenyca given SC in right arm (PA good til 01/18/25) no edema or redness at site after injection. Pt aware 0f next appointment
--- NOTE | 2024-02-14 12:12 | MHC.HEMONC ---
Addendum entered by Tigist Grayson RN 02/14/24 12:46: Per Dr Torres-Pt to have CT scan within next week, will hold chemotherapy until after CT SCAN results are available. 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 States her legs are giving out and can't write States wants to skip chemotherapy tomorrow and have Cat Scan, states if she needs another chemo treatment she will think about doing it but needs a little break secondary to neuropathy. Requesting Gabapentin and Diclofenac topical gel. Dr Torres notified.
--- NOTE | 2024-02-14 15:27 | HO.HEMONCPA ---
Addendum entered by Marie Becerra 02/15/24 08:13: [facility] DENIED FOR DICLOFENAC SODIUM Original Note: [facility] PENDING FOR DICLOFENAC SODIUM GRANT: [id number] AWAITING RESPONSE FROM [facility]
--- NOTE | 2024-02-15 09:35 | MHC.HEMONC ---
Triage call-pt called and notified she was denied by her insurance company for Diclofenac gel.
--- NOTE | 2024-02-21 10:09 | MHC.HEMONC ---
Triage call: Patient called to report new sided abdominal pain feels like gallbladder pain. Patient states that pain is different from the pain she has previously experienced with her pancreas and liver. Patient did take Oxycodone with no relief. Pain is sharp in nature and constant. She reports decreased appetite but denies nausea, or vomiting. Dr. Torres notified. She recommends to go to the ER for further evaluation. Patient notified.
--- NOTE | 2024-02-22 08:36 | MHC.HEMONC ---
Per Dr Dodd- Pt seen in ER yesterday for increasing abd pain, ? new clot was on eliquis. Dr Dodd started Patient on Lovenox and asking for ptient to be seen today. Note given to Helen to call Patient and book for today.
--- NOTE | 2024-02-22 14:34 | HE.PHANOTE ---
Verified with Dr Torres, patient will be discontinued from the eliquis and put on lovenox. She had clot progression while on eliquis
--- NOTE | 2024-02-22 16:19 | PM.HEMONCPN ---
Medical Summary - Medical Summary Date of Service: 02/22/24 Chief complaint: Follow-up for: Pancreatic carcinoma. Primary Care Provider: Carlyn Enriquez MD Medical Summary: DIAGNOSIS: LEFT BREAST CANCER UPPER OUTER QUADRANT. CURRENT THERAPY: STATUS POST LUMPECTOMY ON 04/29/21. Pathology revealed: Invasive ductal carcinoma, high grade, 3 cm, with small satellite nodules x2 approximately 0.1 cm. DCIS nuclear grade 3 with comedonecrosis and calcifications. No lymphovascular invasion. Margins negative for invasive and in-situ ductal carcinoma, however invasive ductal carcinoma is less than 0.1 cm to the posterior margin and approximately 0.1 cm to the medial and lateral margins. Re-excision negative. ER negative/TN negative and HER2 Vonda negative. Three sentinel nodes were negative. Recieved weekly carboplatin Taxol based chemotherapy. Cycle 1 on 06/03/21. Completed Cycle 6, day 15, on November 04. Now with metastatic pancreatic carcinoma with liver metastases. Started on FOLFIRINOX 09/28/23. Second dose 10/12. Third dose 10/26/23. Fifth dose 11/23. Had 11th dose on 02/14. Interval History Interval history: Marah Rivera is a pleasant 48 year old lady, here for a follow-up visit. She was seen in the ED on 02/20. Narrative: Patient comes to the emergency room complaining of right upper quadrant pain. Patient states that she is known to have stage IV pancreatic cancer, has had multiple doses of chemotherapy. Patient states that at this time, she has on an ?chemotherapy summer vacation and is hoping to stay off of chemo for the summer. Patient states that she was being prescribed oxycodone 5 mg but it was not helping control the pain. Patient denies nausea vomiting, had 1 episode of loose stool. Patient states that yesterday she woke up sweaty, but denies any fever. IMPRESSION: Abdominal pain, Internal jugular vein thrombosis Instructions: Deep Vein Thrombosis (ED), Abdominal Pain (ED) Additional Instructions: Please follow-up with Dr. Torres 1st thing in the morning. If you have any worsening or new symptoms, please return to the emergency room or call 911 She mentions she had taken gabapentin few doses last week. She is concerned that the abdominal pain could have been related to that. She took 10 mg of oxycodone last night. The pain was better today and she only took 5 mg. Her energy level has been low. She takes a couple of naps a day. No fever nor chills. She denies headaches. Occasional dizziness. Appetite is so-so. She had lost 15 lbs of weight, in the beginning but now it is stable. No chest pain. She gets exertional dyspnea. Echocardiogram: normal LVEF. She denies frequency of micturition. She gets generalized aches and pains. She has noticed numbness in her hands and the feet. This goes up to the knees. Couple times a knees buckled as if the legs were giving out on her. She has noticed that her gait is even different. She has been trying to stay active. She is in good spirits. Rest of the ROS is normal. INTERIM HISTORY: She was seen in the ED on 08/22. Narrative: Patient with chronic recurrent epigastric pain had an ultrasound done in 12/17 which was negative. Pain is constant epigastric areas patient for last 3 months no relation with food no nausea no vomiting nose weight loss. Patient does have a strong family history of breast cancer. Also history of pancreatic cancer in her cousins but patient's previous CT scan on 12/[address] scan of the abdomen pelvis revealed: 1. Multiple new peripherally enhancing hepatic lesions, most concerning for metastatic disease. 2. A 1.5 cm hypoattenuating soft tissue focus along the cephalad margin of the pancreatic body is new as compared to prior and may correspond to an adjacent enlarged lymph node or a primary pancreatic lesion. 3. A few new pulmonary nodules at the lung bases which are concerning for metastatic disease in the context of the new hepatic lesions. 4. Borderline enlarged retroperitoneal lymph nodes. She underwent a biopsy of the liver lesion on 09/06. Unfortunately it revealed: Poorly differentiated carcinoma. Morphologic and immunophenotypic features are consistent with pancreatic primary. She was seen by Dr. Landry Perez, at [facility], on 09/20. RECENT HISTORY: She was actually seen in the ED on 12/19/22. The note: 47-year-old female who presents emergency department for evaluation of right-sided abdominal pain. She states that approximately 2-3 weeks prior she was having very bad heartburn and was using Tums frequently. She states that over the last 1 and half weeks she has been having constant, right-sided abdominal pain. She points to her right upper quadrant area when asked to localize the pain. She states the pain was a constant dull pain. She did have an outpatient ultrasound done on 12/18/2022 which revealed no evidence of cholecystitis or cholelithiasis. She states that last night around 19:00 hours she ate a hot dog. At around 22:00 hours the right upper quadrant pain got worse and became a sharp pain. The pain does radiate to her back. She had associated nausea and has been dry heaving. She denied fever, chills, rhinorrhea, sore throat. She states she has had a chronic cough for weeks but she describes attributes this to a smoker's cough. She states that she has had an increase amount of gas and feels bloated. Patient does have a history breast cancer and she states she had a left lumpectomy, complete chemotherapy in October of 2021 and radiation therapy in April of 2022. bloated feeling. Vital signs were normal. Physical exam did reveal moderate right upper quadrant tenderness a mild right lower quadrant tenderness. I ordered the nursing staff to access the patient's Port-A-Cath I ordered a CBC, CMP, PT/INR, PTT, lipase, lactic acid urinalysis, urine test, COVID-[address] scan of the abdomen pelvis with IV contrast. Patient's pain and nausea will be treated with Toradol 15 mg IV and Zofran 4 mg IV. She was also ordered to get normal saline x1 L. The care was turned over to my colleague, Dr. Alannah Lockwood. Differential Diagnosis Differential diagnosis includes but is not limited to cholecystitis, appendicitis, pancreatitis, metastatic disease, gastritis, viral syndrome, esophagitis. CT scan of the abdomen/pelvis revealed: No acute findings identified in the abdomen/pelvis. Ultrasound of the abdomen from 12/18: IMPRESSION: No evidence of cholelithiasis or cholecystitis. Overall increased echogenicity within the liver may be consistent with fatty change. No free fluid She saw her pci security consultant doctor, Dimitris. An ultrasound was done which revealed a cyst in the ovary. She did blood work and reassured her. Interim history: She completed cycle 6, day 15, of Carbo/Taxol weekly on 10/27/21. She came here after a long hiatus. She had some social/mental issues. She was seen in the emergency room on 11/10: Narrative: This is a 46-year-old female was brought in by ambulance. The patient was in her car at [facility] and apparentlywas acting bizarrely therefore personnel at [facility] called the ambulance. Patient herself is not forthcoming with regard to history. She is lying on her side with her hand over her mouth and for his speech is difficult to understand due to it being muffled but her hand. Patient states that her her family has been out to get her. She mentioned something about crisis evaluation. She denies alcohol or drug use. She said she feels that she is very hot. She notes she is being treated for breast cancer. She states she has had low platelets in the past. Patient also notes that she is DNR ?for any number of reasons? The patient appears to be manic, she is shouting at people that walk by in her in the emergency department, she is making bizarre statements such as she is a DNR but she does not have the paperwork and she does not care and wants to . I suspect that the patient has either bipolar disorder schizophrenia and is not taking her medications therefore she is a danger to herself and I am placing her on a Section 12. The patient will be kept in the emergency department until she can be evaluated by our crisis team. The patient refused to let me give her physical exam. At the end of my shift, the patient's care was turned over to my colleague, Dr. Soto. 01/15, she was seen by her primary care doctor Mina: She has history bipolar disorder, recently discharged from [facility] 01/19/2022,admitted for acute john with psychosis. She has history invasive ductal ca of left breast, and diagnosed to have diastolic dysfunction. She states that she is currently being seen by Dr. Trevino at [facility] for her cardiac follow-up, and will be transferred to [facility] for a double mastectomy. Patient states that she needs to be seen by psychiatrist. She was seen and evaluated by our mental health specialist, Rachael, who reviewed her discharge from recent psychiatric admission, and she was reminded that she is already has seen by [facility] a psychiatrist at [place] and has a follow-up appointment. Patient was given the number to contact her psychiatrist to schedule an appointment. She states that she has been feeling well at present time with no complaints of any chest pain, no suicidal ideations. She is trying to apply for disability, has been denied 4 times. Previous history: 1. She tells me, 1 of her teeth broke while biting into something. She had seen the dentist. She may need to have the tooth removed. 2. She had an abnormal mammogram. This was done on ,02/28 and revealed: Left breast has new mass, posterior upper outer quadrant in area of palpable in measuring 1.7 cm. Ultrasound demonstrated: Heterogenous macro lobulated hypoechoic mass posterior upper outer quadrant measurin.8 and 1.4 time 1.7 cm. Left axillary nodes showing normal fatty hilus and normal color. 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 She had her lumpectomy done on 04/29. She tells me that her surgery went well. The incision does appear to be healing, the open area has closed up. No more drainage. She had a follow-up appointment with Dr. Dutta. 3. Cardiac issues: She has had some cardiac issues. She was seen by Dr. Morse who diagnosed diastolic dysfunction. She went to Dr. Trevino in [place] who did right heart catheterization. He mention some muscular dysfunction/autonomic dysfunction. No treatment was suggested. Clinical trial was offered that she declined. She actually had an appointment with Dr. Brewer. Psychiatric Social Worker History: Menarche at 10. She still has her regular periods. Family history: Her mom was diagnosed with breast cancer at 38. She lived for 7 years. of metastatic disease. 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 She is not . She has no children. She smokes half a pack a day. She drinks very little alcohol. Review of Systems - Constitutional Reports system reviewed and no additional complaints, except as documented - Eyes Reports system reviewed and no additional complaints, except as documented - ENT Reports system reviewed and no additional complaints, except as documented - Cardiovascular Reports system reviewed and no additional complaints, except as documented - Respiratory Reports no additional respiratory complaints - Gastrointestinal Reports system reviewed and no additional complaints, except as documented - Genitourinary Reports no additional female genitourinary complaints - Musculoskeletal Reports system reviewed and no additional complaints, except as documented - Integumentary/Breasts Skin/Breast: Reports no additional skin complaints - Neurologic Reports system reviewed and no additional complaints, except as documented, Reports dizziness, Reports numbness, Reports paresthesias, Reports weakness, Denies headache(s) - Psychiatric Reports system reviewed and no additional complaints, except as documented - Endocrine Reports no additional endocrine complaints - Hematologic/Lymphatic Reports system reviewed and no additional complaints, except as documented - Allergic/Immunologic Reports system reviewed and no additional complaints, except as documented [facility], [facility] Medical History: Medical History (Last Reviewed 02/22/24 @ 16:20 by Helen Espinosa) Diastolic dysfunction Exertional dyspnea Family history of breast cancer gene mutation in first degree relative Hx of cyst of breast Hx of lipoma Impaired fasting glucose Invasive ductal carcinoma of left breast Pancreatic carcinoma metastatic to liver Skin lesion of left upper extremity Functional capacity: independent ambulation Patient : No Family History: Family History (Last Reviewed 02/22/24 @ 16:20 by Helen Espinosa) Mother Breast cancer, Onset Age: 38 Father CAD (coronary artery disease) Hyperlipidemia HTN (hypertension) History of cardiac defibrillator placement Pacemaker Family/Other Lymphoma Paternal Grandmother Dementia Sister Substance use disorder Mental health disorder Surgical History: Surgical History (Last Reviewed 02/22/24 @ 16:20 by Helen Espinosa) Endometriosis History of excision of mass History of lumpectomy of left breast Social History: Social History (Last Reviewed 02/22/24 @ 16:20 by Helen Espinosa) Living Situation History: Household Members: Family Housing: House Are you a primary aged or disabled care worker to a significant other at home: No Do you presently have visiting nurse or other home services: No Alcohol History Details: 1. How often do you have a drink containing alcohol?: b. Monthly or less 2. How many drinks containing alcohol do you have on a typical day when you are drinking?: a. 1 or 2 Tobacco History: Patient Tobacco Use Status: Current everyday Tobacco Tobacco use type: Cigarette Cigarette Packs Per Day: 0.5 e-Cigarette/Vaping Use: Never Used Substance Use History: Use of substances other than those prescribed or required for medical reasons: No Substance Use Type: Marijuana Domestic Abuse History: Have you been hit, kicked, punched, or otherwise hurt by someone within the past year? If so, by whom?: No Do you feel safe in your current relationship?: Yes Advance Directives: Advance Directives Date on File: 11/26/21 Homicidal Assessment: Do you have thoughts of harming others: None Do you have a plan to hurt others: No Plan Do you have the means to hurt others: No Nutrition Assessment: Recently lost weight without trying: No Eating poorly because of decreased appetite: No Patient : No Occupation Assessmet: service: No Current occupational status: unemployed Oncology Screenings - ECOG Performance Status ECOG Performance Status: 0 Home Medications and Allergies Home Medications ?Medication ?Instructions ?Recorded ?Confirmed ?Type metoprolol tartrate 25 mg tablet 25 mg PO BID 01/14/21 02/22/24 History nitroglycerin 0.4 mg sublingual 0.4 mg sublingual Q5M PRN Chest 01/14/21 02/22/24 History tablet Pain aripiprazole 10 mg tablet (Abilify) 10 mg PO DAILY psychosis 01/16/22 02/22/24 History hydroxyzine HCl 10 mg PO DAILY PRN Anxiety 02/15/23 02/22/24 History multivitamin with minerals-folic 0.4 tab PO DAILY 08/12/23 02/22/24 History acid 0.4 mg tablet (One-A-Day Women's 50 Plus) Allergies Allergy/AdvReac Type Severity Reaction Status Date / Time bee pollen [BEE STINGS] Allergy Severe ANAPHYLAXIS Verified 02/22/24 16:20 Penicillins Allergy Intermediate Unknown Verified 02/22/24 16:20 danazol Allergy Unknown hand Verified 02/22/24 16:20 swelling codeine AdvReac Mild Nausea Verified 02/22/24 16:20 omeprazole [From Prilosec] AdvReac Mild Unknown Verified 02/22/24 16:20 sertraline [Zoloft] AdvReac Unknown increasedi Verified 02/22/24 16:20 rritability Exam Vital signs: Vital Signs Temp 97.6 F 02/01/24 08:18 Pulse 98 02/01/24 08:18 Resp 18 02/01/24 08:18 BP 115/76 02/01/24 08:18 Pulse Ox 100 02/01/24 08:18 O2 Del Method Room Air 02/01/24 08:18 Weight 66.1 kg BMI result Body Mass Index 26.7 - Constitutional Present: mild distress - Routine HEENT Exam Head: Present: normocephalic Eye: Present: normal appearance ENT: Present: mucous membranes moist - Routine Neck Exam Present: full ROM - Routine Respiratory Exam Present: CTAB - Routine Cardiovascular Exam Cardiovascular: Present: RRR, S1, S2. Absent: rubs, S3, S4 - Routine Abdominal Exam Present: normal bowel sounds, nontender. Absent: diminished bowel sounds, organomegaly - Routine Rectal Exam Patient deferred: digital exam - Routine Extremities Exam Absent: tenderness - Routine Back/Spine/Pelvis Exam Back/Spine: Present: full ROM - Routine Skin Exam Present: intact, normal turgor - Routine Neurological Exam Present: alert, oriented X3 - Detailed Neurological Exam: Coma Scale Eye Opening: Spontaneous (4) - Routine Psychiatric Exam Present: normal affect Data - Labs CBC & Chem 7: 02/01/24 08:25 02/01/24 08:25 Assessment and Plan Patient Active problem list reviewed?: Yes (1) Breast cancer of upper-outer quadrant of left female breast Status: Resolved Assessment and plan: This is a pleasant 45-year-old lady with recent diagnosis of left-sided breast cancer upper outer quadrant. 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 Question is about neoadjuvant chemotherapy. Since the tumor size is small less than 2 cm., the nodes appear negative on the ultrasound. Would recommend upfront surgical resection for exact staging. She will need chemotherapy since she is triple negative. I discussed the case with Dr. Dutta, as well. She underwent a lumpectomy with sentinel node dissection. Her pathology revealed: Pathology revealed: Invasive ductal carcinoma, high grade, 3 cm, with small satellite nodules x2 approximately 0.1 cm. DCIS nuclear grade 3 with comedonecrosis and calcifications. No lymphovascular invasion. Margins negative for invasive and in-situ ductal carcinoma, however invasive ductal carcinoma is less than 0.1 cm to the posterior margin and approximately 0.1 cm to the medial and lateral margins. Re-excision negative. ER negative/TN negative and HER2 Vonda negative. Three sentinel nodes were negative. No lymphovascular invasion. Margins negative for invasive and in-situ ductal carcinoma, however invasive ductal carcinoma is less than 0.1 cm to the posterior margin and approximately 0.1 cm to the medial and lateral margins. Re-excision negative. ER negative/TN negative and HER2 Vonda negative. Three sentinel nodes were negative. She was deemed a candidate for adjuvant chemotherapy, being triple negative. Choices of chemotherapy included dose dense AC x4, followed by Taxol. However she does have a history of cardiac issues with diastolic dysfunction. In the situation I intended to avoid Adriamycin. She had an echocardiogram at [facility] few weeks prior which showed EF of 55%. Recent data suggest benefit of adjuvant carboplatin and Taxol, especially for triple negative disease. She had a Port-A-Cath placed to facilitate the chemotherapy. She got started on 06/03/21. She completed 6 cycles October,, without incident. Subsequently it appears that she had some mental breakdown. There is some history of bipolar disorder. She was inpatient at [facility] for a couple weeks. In November,, she developed COVID. She was at [facility] then transferred to [facility] for another couple weeks for psychiatric admission. It appears now that she is clinically stable. She had an appointment with medical office representative in [place] on February 25. She mentioned that she was considering a double mastectomy. I advised her to just get post lumpectomy radiation. She is concerned about dermatological toxicity related to radiation. She can at least meet with the radiation therapist and have her questions answered. She was referred for post lumpectomy radiation therapy. She preferred to go to [facility]. She finally completed the radiation 6 months ago. She had a mammogram on 08/19/2022 which was benign. Recently, she has had right upper quadrant/epigastric pain Fortunately the imaging is negative. She could have gastritis/ulcer disease. She was referred to GI, for further evaluation including endoscopy. Appointment was for 12/28. She saw Pb Anaya, her note: 47-year-old female multiple comorbidities referred for index screening colonoscopy presents with persistent acid reflux. Schedule EGD to r/o pud, nonulcer dyspepsia, esophagitis other endoscopic findings to account for his symptoms as well as screening colonoscopy. Discussed procedures, rare risks, need for escorted due to anesthesia, it in cardiac history, unclear will get anesthesia consult. Discuss MiraLax Gatorade split prep, literature given. She will have H pylori test if positive we will treat-otherwise pantoprazole 40 mg which has given her fairly good response in the past. Lately, she has had CP, and PVCs. An appt will be set up with Dr. Madrid, at her request. She had repeat mammogram, on 10 August. Stable postoperative and post treatment related changes to the left breast, with no new findings suspicious for malignancy. No suspicious findings right breast. Recommend continuing yearly mammography of both breasts to establish a 3 year post operative stability of the left breast. l checked a bone density at the same time. This revealed: 1. DIAGNOSIS: Osteopenia based on the lowest T-score value of -1.2 in the femoral neck applying World Health Organization criteria. 2. 10-YEAR FRACTURE RISK PREDICTION, FRAX: Major osteoporotic fracture (clinical spine, forearm, hip or shoulder) 4.0%. Hip fracture 0.4%. Ca 27.29: 20. She was seen in the ED on 08/22. Narrative: Patient with chronic recurrent epigastric pain had an ultrasound done in 12/17 which was negative. Pain is constant epigastric areas patient for last 3 months no relation with food no nausea no vomiting nose weight loss. Patient does have a strong family history of breast cancer. Also history of pancreatic cancer in her cousins but patient's previous CT scan on 12/[address] scan of the abdomen pelvis revealed: 1. Multiple new peripherally enhancing hepatic lesions, most concerning for metastatic disease. 2. A 1.5 cm hypoattenuating soft tissue focus along the cephalad margin of the pancreatic body is new as compared to prior and may correspond to an adjacent enlarged lymph node or a primary pancreatic lesion. 3. A few new pulmonary nodules at the lung bases which are concerning for metastatic disease in the context of the new hepatic lesions. 4. Borderline enlarged retroperitoneal lymph nodes. Database: From 08/22: CBC: WBC 7.8, HGB 14.3, HCT 41.9, PLT 201. CMP: Lytes WNL, BUN 10, TRANSPORT ENGINEER 0.78. LFTs: 0.2/85/37/46. Albumin 4.2. Calcium 9.8. CA 27.29: 71. She had abdominal pain. The oxycodone helped. Liver Mets are likely related to the breast cancer. I proceeded with further evaluation. 08/24 MRI of the abdomen revealed: 1.3 x 1.6 x 1.8 cm mass in the body of the pancreas. No dilatation of the main pancreatic duct. There are numerous peripherally enhancing hepatic masses. There are enlarged gastrohepatic ligament and retroperitoneal lymph nodes. This likely represents metastatic disease. l checked CA 19-9: 18. l proceeded with a PET scan for restaging purposes. She had a biopsy of the liver lesion on 09/06. It revealed: Poorly differentiated carcinoma consistent with pancreatic primary. She saw Dr. Landry Perez at [facility] on 09/20/23. His recommendation was to proceed with FOLFIRINOX based palliative chemotherapy. She underwent chemotherapy teaching. She was started on it on 09/28/23. Here for cycle 6. She has been getting the chemo treatments every 2 weeks. However she would like to go away to [place], so will adjust her schedule accordingly. She had a CT chest and abdomen for re-staging on November 26. This revealed: IMPRESSION: 1. Significantly diminished size and number of lung nodules. 2. Significant reduction in size of liver metastases. 3. Stable left adrenal gland nodule. 4. Right adnexal cyst. 5. Splenomegaly. 6. Port-A-Cath in place. This is great news. I forwarded the results to Dr. Perez. Ca 13/07: 12. She had tolerated the treatment well up till now but, her neuropathy has bothered her with this last cycle. She actually called a week ago, that she wanted to cancel her treatments and take a break. She was seen in the ED yesterday with right upper quadrant abdominal pain. Database from 02/20: CBC: WBC 13.1, HGB 13.2, HCT 38, MCV 94.1, PLT 116. Lytes WNL, glucose 139, BUN 8, [employer]SP[employer] ENGINEER 0.74. LFTs: 0.4/140/. CT scan of the chest abdomen pelvis from 02/20 revealed: 1. Hypoattenuating region adjacent to the distal portion of the left IJ port catheter, suspicious for venous thrombus within the lower internal jugular vein and brachiocephalic vein. 2. Multiple hepatic lesions are redemonstrated. The largest of these measures up to approximately 2.2 cm in diameter, previously 2.9 on 11/26/2023. Any of the remaining hepatic lesions appear more distinct than on the prior examination, though some differences could potentially be due to the differences in post contrast timing and direct comparison of size is limited. 3. No significant change in appearance of several bilateral lung nodules since 12/17/2023. 4. Stable appearance of left adrenal nodule. She was given a dose of Lovenox in the ED. PLAN: I will proceed with an ultrasound of the left upper extremity to confirm the venous thrombosis within the IJ and brachiocephalic vein. She was given a dose of Lovenox here. She will continue to take it at home, every 12 hours. Since it is a discrepancy between the results of the ultrasound and CT scan regarding the liver lesions, I will discuss it with the radiologist further. I faxed over the imaging results to Dr. Landry Perez. She would like something for her neuropathy. The gabapentin did not agree with her. Will try Lyrica. This should help the neuropathy to improve. She would like a break from treatment. hopefully if all goes well she can have the summer off. She will return in a couple of weeks for a follow-up visit All her questions were answered to her satisfaction. Thank you, CC: Dr. Dutta. Dr. Enriquez. - Time Spent With Patient Time Spent with Patient (in minutes): 25
[2024-02-22 16:22] VITALS: BP 141/86; PULSE 107; O2SAT 97; BMI 26.4
[2024-02-22] MEDS: Enoxaparin Sodium 80 MG/0.8 ML SYRINGE 70 MG SUBCUT (16:36)
--- NOTE | 2024-02-22 16:39 | MHC.HEMONC ---
Pt was in for Onc f/u w/ Dr. Torres, was recently d/c'd from PO Eliquis as she had clot progression, was started on SC Lovenox 70 mg, received 1st dose at 01:00 in the ED, presents today to receive next dose and teaching to self-administer the drug. Nurse Tigist demonstrated proper technique to pt to administer SC injection of Lovenox 70 mg SC, admin to pt's RLQ abdomen, taught pt to self-admin scrip Q12H. Dr. Torres sent new scrip for Lovenox 60 mg SQ Q12H to pt's pharmacy, Dr. Torres confirmed 60 mg Q12H is the intended dose henceforth.
--- NOTE | 2024-02-23 16:56 | MHC.HEMONC ---
Nurse spoke w/ Radiology cooling room attendant, per Dr. Torres's request, asked her to please notify Moshe Perez MD that there is a discrepancy between the measurements of hepatic masses/lesions from the CT and Ultrasound that were both performed on 02/21/24. Dr. Torres is seeking clarification, asked that Dr. Perez consider taking another look at the CT. Nurse updated Dr. Torres at home via text, notified her that Dr. Perez may contact her via [employer] or tomorrow.
--- NOTE | 2024-03-02 15:26 | MHC.HEMONC ---
Triage note-pt called requesting refill on oxycodone and protonix. Request given to Dr Torres
--- NOTE | 2024-03-06 11:17 | P.PNHO-ONC_ITS ---
Medical Summary - Medical Summary Date of Service: 03/06/24 Chief complaint: Follow-up for: Pancreatic carcinoma. Primary Care Provider: Carlyn Enriquez MD Medical Summary: DIAGNOSIS: LEFT BREAST CANCER UPPER OUTER QUADRANT. CURRENT THERAPY: STATUS POST LUMPECTOMY ON 04/29/21. Pathology revealed: Invasive ductal carcinoma, high grade, 3 cm, with small satellite nodules x2 approximately 0.1 cm. DCIS nuclear grade 3 with comedonecrosis and calcifications. No lymphovascular invasion. Margins negative for invasive and in-situ ductal carcinoma, however invasive ductal carcinoma is less than 0.1 cm to the posterior margin and approximately 0.1 cm to the medial and lateral margins. Re-excision negative. ER negative/DC negative and HER2 Vonda negative. Three sentinel nodes were negative. Recieved weekly carboplatin Taxol based chemotherapy. Cycle 1 on 06/03/21. Completed Cycle 6, day 15, on November 04. Now with metastatic pancreatic carcinoma with liver metastases. Started on FOLFIRINOX 09/28/23. Second dose 10/12. Third dose 10/26/23. Fifth dose 11/23. Had 11th dose on 02/14. Interval History Interval history: Marah Rivera is a pleasant 48 year old lady, here for a follow-up visit. She tells me her main complaint is the neuropathy. She can not walk in a proper manner. She keeps dropping things from her hands when she tries to hold down to them. Other than that she is doing well. Her energy level is picking up. No fever nor chills. She denies headaches. Occasional dizziness. Appetite is better. He is eating 3 times a day. If she eats too much she gets belly pain. No chest pain. She gets exertional dyspnea. Echocardiogram: normal LVEF. She denies frequency of micturition. She gets occasional aches and pains. She has noticed numbness in her hands and the feet. This goes up to the knees. Sometimes knees buckle. She has been trying to stay active. She is in good spirits. Rest of the ROS is normal. RECENT HISTORY: She was seen in the ED on 02/20. Narrative: Patient comes to the emergency room complaining of right upper quadrant pain. Patient states that she is known to have stage IV pancreatic cancer, has had multiple doses of chemotherapy. Patient states that at this time, she has on an ?chemotherapy summer vacation and is hoping to stay off of chemo for the summer. Patient states that she was being prescribed oxycodone 5 mg but it was not helping control the pain. Patient denies nausea vomiting, had 1 episode of loose stool. Patient states that yesterday she woke up sweaty, but denies any fever. IMPRESSION: Abdominal pain, Internal jugular vein thrombosis Instructions: Deep Vein Thrombosis (ED), Abdominal Pain (ED) Additional Instructions: Please follow-up with Dr. Torres 1st thing in the morning. If you have any worsening or new symptoms, please return to the emergency room or call 911 She mentions she had taken gabapentin few doses last week. She is concerned that the abdominal pain could have been related to that. She took 10 mg of oxycodone last night. The pain was better today and she only took 5 mg. INTERIM HISTORY: She was seen in the ED on 08/22. Narrative: Patient with chronic recurrent epigastric pain had an ultrasound done in 12/17 which was negative. Pain is constant epigastric areas patient for last 3 months no relation with food no nausea no vomiting nose weight loss. Patient does have a strong family history of breast cancer. Also history of pancreatic cancer in her cousins but patient's previous CT scan on 12/[address] scan of the abdomen pelvis revealed: 1. Multiple new peripherally enhancing hepatic lesions, most concerning for metastatic disease. 2. A 1.5 cm hypoattenuating soft tissue focus along the cephalad margin of the pancreatic body is new as compared to prior and may correspond to an adjacent enlarged lymph node or a primary pancreatic lesion. 3. A few new pulmonary nodules at the lung bases which are concerning for metastatic disease in the context of the new hepatic lesions. 4. Borderline enlarged retroperitoneal lymph nodes. She underwent a biopsy of the liver lesion on 09/06. Unfortunately it revealed: Poorly differentiated carcinoma. Morphologic and immunophenotypic features are consistent with pancreatic primary. She was seen by Dr. Landry Perez, at [facility], on 09/20. RECENT HISTORY: She was actually seen in the ED on 12/19/22. The note: 47-year-old female who presents emergency department for evaluation of right- sided abdominal pain. She states that approximately 2-3 weeks prior she was having very bad heartburn and was using Tums frequently. She states that over the last 1 and half weeks she has been having constant, right-sided abdominal pain. She points to her right upper quadrant area when asked to localize the pain. She states the pain was a constant dull pain. She did have an outpatient ultrasound done on 12/18/2022 which revealed no evidence of cholecystitis or cholelithiasis. She states that last night around 19:00 hours she ate a hot dog. At around 22:00 hours the right upper quadrant pain got worse and became a sharp pain. The pain does radiate to her back. She had associated nausea and has been dry heaving. She denied fever, chills, rhinorrhea, sore throat. She states she has had a chronic cough for weeks but she describes attributes this to a smoker's cough. She states that she has had an increase amount of gas and feels bloated. Patient does have a history breast cancer and she states she had a left lumpectomy, complete chemotherapy in October of 2021 and radiation therapy in April of 2022. bloated feeling. Vital signs were normal. Physical exam did reveal moderate right upper quadrant tenderness a mild right lower quadrant tenderness. I ordered the nursing staff to access the patient's Port-A-Cath I ordered a CBC, CMP, PT/INR, PTT, lipase, lactic acid urinalysis, urine test, COVID-[address] scan of the abdomen pelvis with IV contrast. Patient's pain and nausea will be treated with Toradol 15 mg IV and Zofran 4 mg IV. She was also ordered to get normal saline x1 L. The care was turned over to my colleague, Dr. Alannah Lockwood. Differential Diagnosis Differential diagnosis includes but is not limited to cholecystitis, appendicitis, pancreatitis, metastatic disease, gastritis, viral syndrome, esophagitis. CT scan of the abdomen/pelvis revealed: No acute findings identified in the abdomen/pelvis. Ultrasound of the abdomen from 12/18: IMPRESSION: No evidence of cholelithiasis or cholecystitis. Overall increased echogenicity within the liver may be consistent with fatty change. No free fluid She saw her metal extrusion supervisor doctor, Dimitris. An ultrasound was done which revealed a cyst in the ovary. She did blood work and reassured her. Interim history: She completed cycle 6, day 15, of Carbo/Taxol weekly on 10/27/21. She came here after a long hiatus. She had some social/mental issues. She was seen in the emergency room on 11/10: Narrative: This is a 46-year-old female was brought in by ambulance. The patient was in her car at [facility] and apparentlywas acting bizarrely therefore personnel at [facility] called the ambulance. Patient herself is not forthcoming with regard to history. She is lying on her side with her hand over her mouth and for his speech is difficult to understand due to it being muffled but her hand. Patient states that her her family has been out to get her. She mentioned something about crisis evaluation. She denies alcohol or drug use. She said she feels that she is very hot. She notes she is being treated for breast cancer. She states she has had low platelets in the past. Patient also notes that she is DNR ?for any number of reasons? The patient appears to be manic, she is shouting at people that walk by in her in the emergency department, she is making bizarre statements such as she is a DNR but she does not have the paperwork and she does not care and wants to . I suspect that the patient has either bipolar disorder schizophrenia and is not taking her medications therefore she is a danger to herself and I am placing her on a Section 12. The patient will be kept in the emergency department until she can be evaluated by our crisis team. The patient refused to let me give her physical exam. At the end of my shift, the patient's care was turned over to my colleague, Dr. Soto. 01/15, she was seen by her primary care doctor Mina: She has history bipolar disorder, recently discharged from [facility] 01/19/2022,admitted for acute john with psychosis. She has history invasive ductal ca of left breast, and diagnosed to have diastolic dysfunction. She states that she is currently being seen by Dr. Trevino at [facility] for her cardiac follow-up, and will be transferred to [facility] for a double mastectomy. Patient states that she needs to be seen by psychiatrist. She was seen and evaluated by our mental health specialist, Rachael, who reviewed her discharge from recent psychiatric admission, and she was reminded that she is already has seen by [facility] a psychiatrist at [place] and has a follow-up appointment. Patient was given the number to contact her psychiatrist to schedule an appointment. She states that she has been feeling well at present time with no complaints of any chest pain, no suicidal ideations. She is trying to apply for disability, has been denied 4 times. Previous history: 1. She tells me, 1 of her teeth broke while biting into something. She had seen the dentist. She may need to have the tooth removed. 2. She had an abnormal mammogram. This was done on ,02/28 and revealed: Left breast has new mass, posterior upper outer quadrant in area of palpable in measuring 1.7 cm. Ultrasound demonstrated: Heterogenous macro lobulated hypoechoic mass posterior upper outer quadrant measurin.8 and 1.4 time 1.7 cm. Left axillary nodes showing normal fatty hilus and normal color. 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 She had her lumpectomy done on 04/29. She tells me that her surgery went well. The incision does appear to be healing, the open area has closed up. No more drainage. She had a follow-up appointment with Dr. uDtta. 3. Cardiac issues: She has had some cardiac issues. She was seen by Dr. Morse who diagnosed diastolic dysfunction. She went to Dr. Trevino in [place] who did right heart catheterization. He mention some muscular dysfunction/autonomic dysfunction. No treatment was suggested. Clinical trial was offered that she declined. She actually had an appointment with Dr. Brewer. Forensics Team Director History: Menarche at 10. She still has her regular periods. Family history: Her mom was diagnosed with breast cancer at 38. She lived for 7 years. of metastatic disease. 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 She is not . She has no children. She smokes half a pack a day. She drinks very little alcohol. Review of Systems - Constitutional Reports no additional constitutional complaints, Reports lack of energy, Reports weight gain, Denies weight loss - Eyes Reports no additional eye complaints - ENT Reports no additional ear, nose, mouth, and throat complaints - Cardiovascular Reports no additional cardiovascular complaints - Respiratory Reports no additional respiratory complaints - Gastrointestinal Reports no additional gastrointestinal complaints - Genitourinary Reports no additional female genitourinary complaints - Musculoskeletal Reports no additional musculoskeletal complaints - Integumentary/Breasts Skin/Breast: Reports no additional skin complaints - Neurologic Reports no additional neurologic complaints, Reports dizziness, Denies headache(s), Reports numbness, Reports paresthesias, Reports weakness Comments: Neuropathy - Psychiatric Reports no additional psychiatric complaints - Endocrine Reports no additional endocrine complaints - Hematologic/Lymphatic Reports no additional hematologic/lymphatic complaints - Allergic/Immunologic Reports no additional allergic/immunologic complaints [facility] Medical History: Medical History (Last Reviewed 03/06/24 @ 11:17 by Helen Espinosa) Diastolic dysfunction Exertional dyspnea Family history of breast cancer gene mutation in first degree relative Hx of cyst of breast Hx of lipoma Impaired fasting glucose Invasive ductal carcinoma of left breast Pancreatic carcinoma metastatic to liver Skin lesion of left upper extremity Functional capacity: independent ambulation Patient : No Family History: Family History (Last Reviewed 03/06/24 @ 11:17 by Helen Espinosa) Mother Breast cancer, Onset Age: 38 Father CAD (coronary artery disease) Hyperlipidemia HTN (hypertension) History of cardiac defibrillator placement Pacemaker Family/Other Lymphoma Paternal Grandmother Dementia Sister Substance use disorder Mental health disorder Surgical History: Surgical History (Last Reviewed 03/06/24 @ 11:17 by Helen Espinosa) Endometriosis History of excision of mass History of lumpectomy of left breast Social History: Social History (Last Reviewed 03/06/24 @ 11:17 by Helen Espinosa) Living Situation History: Household Members: Family Housing: House Are you a primary care worker to a significant other at home: No Do you presently have visiting nurse or other home services: No Alcohol History Details: 1. How often do you have a drink containing alcohol?: b. Monthly or less 2. How many drinks containing alcohol do you have on a typical day when you are drinking?: a. 1 or 2 Tobacco History: Patient Tobacco Use Status: Current everyday Tobacco Tobacco use type: Cigarette Cigarette Packs Per Day: 0.5 e-Cigarette/Vaping Use: Never Used Substance Use History: Use of substances other than those prescribed or required for medical reasons : No Substance Use Type: Marijuana Domestic Abuse History: Have you been hit, kicked, punched, or otherwise hurt by someone within the past year? If so, by whom?: No Do you feel safe in your current relationship?: Yes Advance Directives: Advance Directives Date on File: 11/26/21 Homicidal Assessment: Do you have thoughts of harming others: None Do you have a plan to hurt others: No Plan Do you have the means to hurt others: No Nutrition Assessment: Recently lost weight without trying: No Eating poorly because of decreased appetite: No Patient : No Occupation Assessmet: service: No Current occupational status: unemployed Oncology Screenings - ECOG Performance Status ECOG Performance Status: 0 Home Medications and Allergies Home Medications ?Medication ?Instructions ?Recorded ?Confirmed ?Type metoprolol tartrate 25 mg tablet 25 mg PO BID 01/14/21 03/06/24 History nitroglycerin 0.4 mg sublingual 0.4 mg sublingual Q5M PRN Chest 01/14/21 03/06/24 History tablet Pain aripiprazole 10 mg tablet (Abilify) 10 mg PO DAILY psychosis 01/16/22 03/06/24 History hydroxyzine HCl 10 mg PO DAILY PRN Anxiety 02/15/23 03/06/24 History multivitamin with minerals-folic 0.4 tab PO DAILY 08/12/23 03/06/24 History acid 0.4 mg tablet (One-A-Day Women's 50 Plus) Allergies Allergy/AdvReac Type Severity Reaction Status Date / Time bee pollen [BEE STINGS] Allergy Severe ANAPHYLAXIS Verified 03/06/24 11:18 Penicillins Allergy Intermediate Unknown Verified 03/06/24 11:18 danazol Allergy Unknown hand Verified 03/06/24 11:18 swelling codeine AdvReac Mild Nausea Verified 03/06/24 11:18 omeprazole [From Prilosec] AdvReac Mild Unknown Verified 03/06/24 11:18 sertraline [Zoloft] AdvReac Unknown increasedi Verified 03/06/24 11:18 rritability Exam Vital signs: Vital Signs Temp 97.6 F 02/01/24 08:18 Pulse 107 H 02/22/24 16:22 Resp 18 02/01/24 08:18 BP 141/86 H 02/22/24 16:22 Pulse Ox 97 02/22/24 16:22 O2 Del Method Room Air 02/22/24 16:22 Weight 65.5 kg BMI result Body Mass Index 26.4 - Constitutional Present: mild distress - Routine HEENT Exam Head: Present: normocephalic Eye: Present: normal appearance ENT: Present: mucous membranes moist - Routine Neck Exam Present: full ROM - Routine Respiratory Exam Present: CTAB - Routine Cardiovascular Exam Cardiovascular: Present: RRR, S1, S2. Absent: rubs, S3, S4 - Routine Abdominal Exam Present: normal bowel sounds, nontender. Absent: diminished bowel sounds, organomegaly - Routine Rectal Exam Patient deferred: digital exam - Routine Extremities Exam Absent: tenderness - Routine Back/Spine/Pelvis Exam Back/Spine: Present: full ROM - Routine Skin Exam Present: intact, normal turgor - Routine Neurological Exam Present: alert, oriented X3 - Detailed Neurological Exam: Coma Scale Eye Opening: Spontaneous (4) - Routine Psychiatric Exam Present: normal affect Data - Labs CBC & Chem 7: 03/06/24 11:16 03/06/24 11:16 Assessment and Plan Patient Active problem list reviewed?: Yes (1) Breast cancer of upper-outer quadrant of left female breast Status: Resolved Assessment and plan: This is a pleasant 45-year-old lady with recent diagnosis of left-sided breast cancer upper outer quadrant. 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 Question is about neoadjuvant chemotherapy. Since the tumor size is small less than 2 cm., the nodes appear negative on the ultrasound. Would recommend upfront surgical resection for exact staging. She will need chemotherapy since she is triple negative. I discussed the case with Dr. Dutta, as well. She underwent a lumpectomy with sentinel node dissection. Her pathology revealed: Pathology revealed: Invasive ductal carcinoma, high grade, 3 cm, with small satellite nodules x2 approximately 0.1 cm. DCIS nuclear grade 3 with comedonecrosis and calcifications. No lymphovascular invasion. Margins negative for invasive and in-situ ductal carcinoma, however invasive ductal carcinoma is less than 0.1 cm to the posterior margin and approximately 0.1 cm to the medial and lateral margins. Re-excision negative. ER negative/DC negative and HER2 Vonda negative. Three sentinel nodes were negative. No lymphovascular invasion. Margins negative for invasive and in-situ ductal carcinoma, however invasive ductal carcinoma is less than 0.1 cm to the posterior margin and approximately 0.1 cm to the medial and lateral margins. Re-excision negative. ER negative/DC negative and HER2 Vonda negative. Three sentinel nodes were negative. She was deemed a candidate for adjuvant chemotherapy, being triple negative. Choices of chemotherapy included dose dense AC x4, followed by Taxol. However she does have a history of cardiac issues with diastolic dysfunction. In the situation I intended to avoid Adriamycin. She had an echocardiogram at [facility] few weeks prior which showed EF of 55%. Recent data suggest benefit of adjuvant carboplatin and Taxol, especially for triple negative disease. She had a Port-A-Cath placed to facilitate the chemotherapy. She got started on 06/03/21. She completed 6 cycles October,, without incident. Subsequently it appears that she had some mental breakdown. There is some history of bipolar disorder. She was inpatient at [facility] for a couple weeks. In November,, she developed COVID. She was at [facility] then transferred to [facility] for another couple weeks for psychiatric admission. It appears now that she is clinically stable. She had an appointment with joint runner in [place] on February 25. She mentioned that she was considering a double mastectomy. I advised her to just get post lumpectomy radiation. She is concerned about dermatological toxicity related to radiation. She can at least meet with the radiation therapist and have her questions answered. She was referred for post lumpectomy radiation therapy. She preferred to go to [facility]. She finally completed the radiation 6 months ago. She had a mammogram on 08/19/2022 which was benign. Recently, she has had right upper quadrant/epigastric pain Fortunately the imaging is negative. She could have gastritis/ulcer disease. She was referred to GI, for further evaluation including endoscopy. Appointment was for 12/28. She saw Pb Anaya, her note: 47-year-old female multiple comorbidities referred for index screening colonoscopy presents with persistent acid reflux. Schedule EGD to r/o pud, nonulcer dyspepsia, esophagitis other endoscopic findings to account for his symptoms as well as screening colonoscopy. Discussed procedures, rare risks, need for escorted due to anesthesia, it in cardiac history, unclear will get anesthesia consult. Discuss MiraLax Gatorade split prep, literature given. She will have H pylori test if positive we will treat-otherwise pantoprazole 40 mg which has given her fairly good response in the past. Lately, she has had CP, and PVCs. An appt will be set up with Dr. Madrid, at her request. She had repeat mammogram, on 10 August. Stable postoperative and post treatment related changes to the left breast, with no new findings suspicious for malignancy. No suspicious findings right breast. Recommend continuing yearly mammography of both breasts to establish a 3 year post operative stability of the left breast. l checked a bone density at the same time. This revealed: 1. DIAGNOSIS: Osteopenia based on the lowest T-score value of -1.2 in the femoral neck applying World Health Organization criteria. 2. 10-YEAR FRACTURE RISK PREDICTION, FRAX: Major osteoporotic fracture (clinical spine, forearm, hip or shoulder) 4.0%. Hip fracture 0.4%. Ca 27.29: 20. She was seen in the ED on 08/22. Narrative: Patient with chronic recurrent epigastric pain had an ultrasound done in 12/17 which was negative. Pain is constant epigastric areas patient for last 3 months no relation with food no nausea no vomiting nose weight loss. Patient does have a strong family history of breast cancer. Also history of pancreatic cancer in her cousins but patient's previous CT scan on 12/[address] scan of the abdomen pelvis revealed: 1. Multiple new peripherally enhancing hepatic lesions, most concerning for metastatic disease. 2. A 1.5 cm hypoattenuating soft tissue focus along the cephalad margin of the pancreatic body is new as compared to prior and may correspond to an adjacent enlarged lymph node or a primary pancreatic lesion. 3. A few new pulmonary nodules at the lung bases which are concerning for metastatic disease in the context of the new hepatic lesions. 4. Borderline enlarged retroperitoneal lymph nodes. Database: From 08/22: CBC: WBC 7.8, HGB 14.3, HCT 41.9, PLT 201. CMP: Lytes WNL, BUN 10, KEYSEATER OPERATOR 0.78. LFTs: 0.2/85/37/46. Albumin 4.2. Calcium 9.8. CA 27.29: 71. She had abdominal pain. The oxycodone helped. Liver Mets are likely related to the breast cancer. I proceeded with further evaluation. 08/24 MRI of the abdomen revealed: 1.3 x 1.6 x 1.8 cm mass in the body of the pancreas. No dilatation of the main pancreatic duct. There are numerous peripherally enhancing hepatic masses. There are enlarged gastrohepatic ligament and retroperitoneal lymph nodes. This likely represents metastatic disease. l checked CA 19-9: 18. l proceeded with a PET scan for restaging purposes. She had a biopsy of the liver lesion on 09/06. It revealed: Poorly differentiated carcinoma consistent with pancreatic primary. She saw Dr. Landry Perez at [facility] on 09/20/23. His recommendation was to proceed with FOLFIRINOX based palliative chemotherapy. She underwent chemotherapy teaching. She was started on it on 09/28/23. Here for cycle 6. She has been getting the chemo treatments every 2 weeks. However she would like to go away to [place], so will adjust her schedule accordingly. She had a CT chest and abdomen for re-staging on November 26. This revealed: IMPRESSION: 1. Significantly diminished size and number of lung nodules. 2. Significant reduction in size of liver metastases. 3. Stable left adrenal gland nodule. 4. Right adnexal cyst. 5. Splenomegaly. 6. Port-A-Cath in place. This is great news. I forwarded the results to Dr. Perez. Ca 13/07: 12. She had tolerated the treatment well up till now but, her neuropathy has bothered her with this last cycle. She actually called a week ago, that she wanted to cancel her treatments and take a break. She was seen in the ED yesterday with right upper quadrant abdominal pain. Database from 02/20: CBC: WBC 13.1, HGB 13.2, HCT 38, MCV 94.1, PLT 116. 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 LFTs: 0.4/140/. CT scan of the chest abdomen pelvis from 02/20 revealed: 1. Hypoattenuating region adjacent to the distal portion of the left IJ port catheter, suspicious for venous thrombus within the lower internal jugular vein and brachiocephalic vein. 2. Multiple hepatic lesions are redemonstrated. The largest of these measures up to approximately 2.2 cm in diameter, previously 2.9 on 11/26/2023. Any of the remaining hepatic lesions appear more distinct than on the prior examination, though some differences could potentially be due to the differences in post contrast timing and direct comparison of size is limited. 3. No significant change in appearance of several bilateral lung nodules since 12/17/2023. 4. Stable appearance of left adrenal nodule. She was given a dose of Lovenox in the ED. I proceeded with an ultrasound of the left upper extremity, this revealed: No DVT demonstrated in the left upper extremity Since there is a discrepancy in the results from CT scan and ultrasound, I have requested input from Dr. Hernandez to clarify the issue. Will then decide if she needs to continue the Lovenox. I faxed over the imaging results to Dr. Landry Perez. She wanted something for her neuropathy. The gabapentin did not agree with her. the Lyrica has not worked yet. Patient would like to take a break from treatment over the summer. She would like to travel and visit relatives in [place]. PLAN: She can have the summer off. She will return in a couple of weeks for a follow-up visit All her questions were answered to her satisfaction. Thank you, CC: Dr. Dutta. Dr. Enriquez. - Time Spent With Patient Time Spent with Patient (in minutes): 25
[2024-03-06 11:18] VITALS: BP 110/74; PULSE 112; O2SAT 99
[2024-03-06 11:18] LABS: MANUAL DIFF FLAG NO
[2024-03-06 11:21] LABS: Basophils Percent Auto 0.4 % (0-2); Hematocrit 42.4 % (37.0-47.0); Hemoglobin 14.6 g/dl (12.0-16.0); Imm Gran Abs Auto 0.03 X10*3/uL (0.00-0.03); Imm Gran Pct Auto 0.3 % (0.0-0.4); Lymphocytes Absolute Auto 1.4 X10*3/uL (1.2-4.9); Lymphocytes Percent Auto 14.5 % (20-40); Mean Corpuscular HGB Conc 34.4 g/dl (31.0-35.0); Mean Corpuscular Hemoglobin 31.5 pg (27.0-33.0); Mean Corpuscular Volume 91.6 fL (80.0-98.0); Monocytes Absolute Auto 0.8 X10*3/uL (0.1-1.2); Monocytes Percent Auto 8.3 % (2-11); Neutrophils Absolute Auto 7.3 x10*3/uL (2.0-8.3); Neutrophils Percent Auto 76.5 % (45-73); Platelet Count 191 X10*3/uL (160-400); Red Blood Count 4.63 X10*6/uL (4.20-5.50); Red Cell Distribution Width 13.7 % (11.0-16.0); White Blood Count 9.5 X10*3/uL (4.8-10.8)
[2024-03-06 11:37] LABS: Alanine Aminotransferase 27 U/L (0-31); Albumin Level 4.2 g/dL (3.5-5.0); Alkaline Phosphatase 130 U/L (39-117); Anion Gap 17 (12-20); Aspartate Amino Transferase 33 U/L (5-31); Bilirubin Total 0.3 mg/dL (0.0-1.0); Blood Urea Nitrogen 10 mg/dL (9-16); Calcium 9.8 mg/dL (8.4-10.2); Carbon Dioxide 24 mmol/L (22-29); Chloride 105 mmol/L (96-108); Creatinine Clr Calc Pharmacy 84.2; Estimated Glomerular Filt Rate > 60; Glucose Random 119 mg/dL (60-115); Sodium 142 mmol/L (135-145); Total Protein 7.4 g/dL (6.5-8.0)
[2024-03-06 11:55] LABS: HBc Num1 0.09 S/CO (0.00-0.79); HBsAGNum1 0.39 S/CO (0.00-0.99); Hepatitis B Core Antibody Nonreactive (Nonreactive); Hepatitis B Surface Antigen Negative (Negative); ~Hepatitis B Surface Antibody REACTIVE (Nonreactive)
--- NOTE | 2024-03-06 12:17 | MHC.HEMONC ---
Patient here for follow up. Port flush added. Port to left chest wall accessed without difficulty- positive blood return. Port flushed with Heparin and de-accessed. Calender provided with next appt. Dr. Torres would like one month follow up with port flush.
--- NOTE | 2024-03-06 12:45 | MHC.HEMONCMA ---
patient seen today for left bca, vss, labs, following up with provider in 1 month
[2024-03-09 09:54] LABS: Carbohydrate Antigen 19-9 31 U/mL (<34)
--- NOTE | 2024-03-30 15:48 | MHC.HEMONC ---
Refill request for Oxycodone- given to Dr. Torres. Oxycodone refilled. Attempted to call patient back- voicemail box full.
[2024-04-06 13:43] VITALS: BP 115/67; PULSE 100; O2SAT 100; BMI 23.7
--- NOTE | 2024-04-06 13:44 | PM.HEMONCPN ---
Medical Summary - Medical Summary Date of Service: 04/06/24 Chief complaint: FOLLOW-UP FOR: PANCREATIC CARCINOMA. Primary Care Provider: Carlyn Enriquez MD Medical Summary: DIAGNOSIS: LEFT BREAST CANCER UPPER OUTER QUADRANT. CURRENT THERAPY: STATUS POST LUMPECTOMY ON 04/29/21. Pathology revealed: Invasive ductal carcinoma, high grade, 3 cm, with small satellite nodules x2 approximately 0.1 cm. DCIS nuclear grade 3 with comedonecrosis and calcifications. No lymphovascular invasion. Margins negative for invasive and in-situ ductal carcinoma, however invasive ductal carcinoma is less than 0.1 cm to the posterior margin and approximately 0.1 cm to the medial and lateral margins. Re-excision negative. ER negative/SC negative and HER2 Vonda negative. Three sentinel nodes were negative. Recieved weekly carboplatin Taxol based chemotherapy. Cycle 1 on 06/03/21. Completed Cycle 6, day 15, on November 04. Now with metastatic pancreatic carcinoma with liver metastases. Started on FOLFIRINOX 09/28/23. Second dose 10/12. Third dose 10/26/23. Fifth dose 11/23. Had 11th dose on 02/15/24. Interval History Interval history: Marah Rivera is a pleasant 48 year old lady, here for a follow-up visit. She tells me he is feeling okay however energy level is not that great. She has had pain that has increased over the epigastrium and both upper quadrant areas. She does not have a good appetite. She has been losing weight. She denies headaches. Occasional dizziness. No chest pain nor dyspnea. Echocardiogram: normal LVEF. She denies frequency of micturition. She gets occasional aches and pains. She has noticed numbness in her hands and the feet. She has been trying to stay active. Her spirits are down. Rest of the ROS is normal. RECENT HISTORY: She was seen in the ED on 02/20. Narrative: Patient comes to the emergency room complaining of right upper quadrant pain. Patient states that she is known to have stage IV pancreatic cancer, has had multiple doses of chemotherapy. Patient states that at this time, she has on an ?chemotherapy summer vacation and is hoping to stay off of chemo for the summer. Patient states that she was being prescribed oxycodone 5 mg but it was not helping control the pain. Patient denies nausea vomiting, had 1 episode of loose stool. Patient states that yesterday she woke up sweaty, but denies any fever. IMPRESSION: Abdominal pain, Internal jugular vein thrombosis Instructions: Deep Vein Thrombosis (ED), Abdominal Pain (ED) Additional Instructions: Please follow-up with Dr. Torres 1st thing in the morning. If you have any worsening or new symptoms, please return to the emergency room or call 911 She mentions she had taken gabapentin few doses last week. She is concerned that the abdominal pain could have been related to that. She took 10 mg of oxycodone last night. The pain was better today and she only took 5 mg. INTERIM HISTORY: She was seen in the ED on 08/22. Narrative: Patient with chronic recurrent epigastric pain had an ultrasound done in 12/17 which was negative. Pain is constant epigastric areas patient for last 3 months no relation with food no nausea no vomiting nose weight loss. Patient does have a strong family history of breast cancer. Also history of pancreatic cancer in her cousins but patient's previous CT scan on 12/[address] scan of the abdomen pelvis revealed: 1. Multiple new peripherally enhancing hepatic lesions, most concerning for metastatic disease. 2. A 1.5 cm hypoattenuating soft tissue focus along the cephalad margin of the pancreatic body is new as compared to prior and may correspond to an adjacent enlarged lymph node or a primary pancreatic lesion. 3. A few new pulmonary nodules at the lung bases which are concerning for metastatic disease in the context of the new hepatic lesions. 4. Borderline enlarged retroperitoneal lymph nodes. She underwent a biopsy of the liver lesion on 09/06. Unfortunately it revealed: Poorly differentiated carcinoma. Morphologic and immunophenotypic features are consistent with pancreatic primary. She was seen by Dr. Landry Perez, at [facility], on 09/20. RECENT HISTORY: She was actually seen in the ED on 12/19/22. The note: 47-year-old female who presents emergency department for evaluation of right-sided abdominal pain. She states that approximately 2-3 weeks prior she was having very bad heartburn and was using Tums frequently. She states that over the last 1 and half weeks she has been having constant, right-sided abdominal pain. She points to her right upper quadrant area when asked to localize the pain. She states the pain was a constant dull pain. She did have an outpatient ultrasound done on 12/18/2022 which revealed no evidence of cholecystitis or cholelithiasis. She states that last night around 19:00 hours she ate a hot dog. At around 22:00 hours the right upper quadrant pain got worse and became a sharp pain. The pain does radiate to her back. She had associated nausea and has been dry heaving. She denied fever, chills, rhinorrhea, sore throat. She states she has had a chronic cough for weeks but she describes attributes this to a smoker's cough. She states that she has had an increase amount of gas and feels bloated. Patient does have a history breast cancer and she states she had a left lumpectomy, complete chemotherapy in October of 2021 and radiation therapy in April of 2022. bloated feeling. Vital signs were normal. Physical exam did reveal moderate right upper quadrant tenderness a mild right lower quadrant tenderness. I ordered the nursing staff to access the patient's Port-A-Cath I ordered a CBC, CMP, PT/INR, PTT, lipase, lactic acid urinalysis, urine test, COVID-[address] scan of the abdomen pelvis with IV contrast. Patient's pain and nausea will be treated with Toradol 15 mg IV and Zofran 4 mg IV. She was also ordered to get normal saline x1 L. The care was turned over to my colleague, Dr. Alannah Lockwood. Differential Diagnosis Differential diagnosis includes but is not limited to cholecystitis, appendicitis, pancreatitis, metastatic disease, gastritis, viral syndrome, esophagitis. CT scan of the abdomen/pelvis revealed: No acute findings identified in the abdomen/pelvis. Ultrasound of the abdomen from 12/18: IMPRESSION: No evidence of cholelithiasis or cholecystitis. Overall increased echogenicity within the liver may be consistent with fatty change. No free fluid She saw her marble polisher hand doctor, Dimitris. An ultrasound was done which revealed a cyst in the ovary. She did blood work and reassured her. Interim history: She completed cycle 6, day 15, of Carbo/Taxol weekly on 10/27/21. She came here after a long hiatus. She had some social/mental issues. She was seen in the emergency room on 11/10: Narrative: This is a 46-year-old female was brought in by ambulance. The patient was in her car at [facility] and apparentlywas acting bizarrely therefore personnel at [facility] called the ambulance. Patient herself is not forthcoming with regard to history. She is lying on her side with her hand over her mouth and for his speech is difficult to understand due to it being muffled but her hand. Patient states that her her family has been out to get her. She mentioned something about crisis evaluation. She denies alcohol or drug use. She said she feels that she is very hot. She notes she is being treated for breast cancer. She states she has had low platelets in the past. Patient also notes that she is DNR ?for any number of reasons? The patient appears to be manic, she is shouting at people that walk by in her in the emergency department, she is making bizarre statements such as she is a DNR but she does not have the paperwork and she does not care and wants to . I suspect that the patient has either bipolar disorder schizophrenia and is not taking her medications therefore she is a danger to herself and I am placing her on a Section 12. The patient will be kept in the emergency department until she can be evaluated by our crisis team. The patient refused to let me give her physical exam. At the end of my shift, the patient's care was turned over to my colleague, Dr. Soto. 01/15, she was seen by her primary care doctor Mina: She has history bipolar disorder, recently discharged from [facility] 01/19/2022,admitted for acute john with psychosis. She has history invasive ductal ca of left breast, and diagnosed to have diastolic dysfunction. She states that she is currently being seen by Dr. Trevino at [facility] for her cardiac follow-up, and will be transferred to [facility] for a double mastectomy. Patient states that she needs to be seen by psychiatrist. She was seen and evaluated by our mental health specialist, Rachael, who reviewed her discharge from recent psychiatric admission, and she was reminded that she is already has seen by [facility] a psychiatrist at [place] and has a follow-up appointment. Patient was given the number to contact her psychiatrist to schedule an appointment. She states that she has been feeling well at present time with no complaints of any chest pain, no suicidal ideations. She is trying to apply for disability, has been denied 4 times. Previous history: 1. She tells me, 1 of her teeth broke while biting into something. She had seen the dentist. She may need to have the tooth removed. 2. She had an abnormal mammogram. This was done on ,02/28 and revealed: Left breast has new mass, posterior upper outer quadrant in area of palpable in measuring 1.7 cm. Ultrasound demonstrated: Heterogenous macro lobulated hypoechoic mass posterior upper outer quadrant measurin.8 and 1.4 time 1.7 cm. Left axillary nodes showing normal fatty hilus and normal color. 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 She had her lumpectomy done on 04/29. She tells me that her surgery went well. The incision does appear to be healing, the open area has closed up. No more drainage. She had a follow-up appointment with Dr. Dutta. 3. Cardiac issues: She has had some cardiac issues. She was seen by Dr. Morse who diagnosed diastolic dysfunction. She went to Dr. Trevino in [place] who did right heart catheterization. He mention some muscular dysfunction/autonomic dysfunction. No treatment was suggested. Clinical trial was offered that she declined. She actually had an appointment with Dr. Brewer. Chemical Dependency Therapist History: Menarche at 10. She still has her regular periods. Family history: Her mom was diagnosed with breast cancer at 38. She lived for 7 years. of metastatic disease. 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 She is not . She has no children. She smokes half a pack a day. She drinks very little alcohol. Review of Systems - Constitutional Reports system reviewed and no additional complaints, except as documented, Reports weakness, Reports weight loss - Eyes Reports system reviewed and no additional complaints, except as documented - ENT Reports system reviewed and no additional complaints, except as documented - Cardiovascular Reports system reviewed and no additional complaints, except as documented - Respiratory Reports no additional respiratory complaints - Gastrointestinal Reports system reviewed and no additional complaints, except as documented, Reports abdominal pain, Reports constipation - Genitourinary Reports no additional female genitourinary complaints - Musculoskeletal Reports system reviewed and no additional complaints, except as documented - Integumentary/Breasts Skin/Breast: Reports no additional skin complaints - Neurologic Reports system reviewed and no additional complaints, except as documented, Reports dizziness, Reports numbness, Reports paresthesias, Reports weakness, Denies headache(s) - Psychiatric Reports system reviewed and no additional complaints, except as documented - Endocrine Reports no additional endocrine complaints - Hematologic/Lymphatic Reports system reviewed and no additional complaints, except as documented - Allergic/Immunologic Reports system reviewed and no additional complaints, except as documented PMF Medical History: Medical History (Last Reviewed 04/06/24 @ 13:42 by Helen Espinosa) Diastolic dysfunction Exertional dyspnea Family history of breast cancer gene mutation in first degree relative Hx of cyst of breast Hx of lipoma Impaired fasting glucose Invasive ductal carcinoma of left breast Pancreatic carcinoma metastatic to liver Skin lesion of left upper extremity Functional capacity: independent ambulation Patient : No Family History: Family History (Last Reviewed 04/06/24 @ 13:42 by Helen Espinosa) Mother Breast cancer, Onset Age: 38 Father CAD (coronary artery disease) Hyperlipidemia HTN (hypertension) History of cardiac defibrillator placement Pacemaker Family/Other Lymphoma Paternal Grandmother Dementia Sister Substance use disorder Mental health disorder Surgical History: Surgical History (Last Reviewed 04/06/24 @ 13:42 by Helen Espinosa) Endometriosis History of excision of mass History of lumpectomy of left breast Social History: Social History (Last Reviewed 04/06/24 @ 13:42 by Helen Espinosa) Living Situation History: Household Members: Family Housing: House Are you a primary special needs child caregiver to a significant other at home: No Do you presently have visiting nurse or other home services: No Tobacco History: Patient Tobacco Use Status: Current everyday Tobacco Tobacco use type: Cigarette Cigarette Packs Per Day: 0.5 e-Cigarette/Vaping Use: Never Used Substance Use History: Substance Use Type: Marijuana Advance Directives: Advance Directives Date on File: 11/26/21 Occupation Assessmet: service: No Current occupational status: unemployed Oncology Screenings - ECOG Performance Status ECOG Performance Status: 0 Home Medications and Allergies Home Medications ?Medication ?Instructions ?Recorded ?Confirmed ?Type metoprolol tartrate 25 mg tablet 25 mg PO BID 01/14/21 04/06/24 History nitroglycerin 0.4 mg sublingual 0.4 mg sublingual Q5M PRN Chest 01/14/21 04/06/24 History tablet Pain aripiprazole 10 mg tablet (Abilify) 10 mg PO DAILY psychosis 01/16/22 04/06/24 History hydroxyzine HCl 10 mg PO DAILY PRN Anxiety 02/15/23 04/06/24 History multivitamin with minerals-folic 0.4 tab PO DAILY 08/12/23 04/06/24 History acid 0.4 mg tablet (One-A-Day Women's 50 Plus) Allergies Allergy/AdvReac Type Severity Reaction Status Date / Time bee pollen [BEE STINGS] Allergy Severe ANAPHYLAXIS Verified 04/06/24 13:42 Penicillins Allergy Intermediate Unknown Verified 04/06/24 13:42 danazol Allergy Unknown hand Verified 04/06/24 13:42 swelling codeine AdvReac Mild Nausea Verified 04/06/24 13:42 omeprazole [From Prilosec] AdvReac Mild Unknown Verified 04/06/24 13:42 sertraline [Zoloft] AdvReac Unknown increasedi Verified 04/06/24 13:42 rritability Exam Vital signs: Vital Signs Temp 97.6 F 02/01/24 08:18 Pulse 100 04/06/24 13:43 Resp 18 02/01/24 08:18 BP 115/67 04/06/24 13:43 Pulse Ox 100 04/06/24 13:43 O2 Del Method Room Air 04/06/24 13:43 Intake & Output 04/05/24 04/06/24 04/06/24 18:59 06:59 18:59 Other: Weight 58.9 kg Weight in Grams [id number] Weight 58.9 kg BMI result Body Mass Index 23.7 - Constitutional Present: mild distress - Routine HEENT Exam Head: Present: normocephalic Eye: Present: normal appearance ENT: Present: mucous membranes moist - Routine Neck Exam Present: full ROM - Routine Respiratory Exam Present: CTAB - Routine Cardiovascular Exam Cardiovascular: Present: RRR, S1, S2. Absent: rubs, S3, S4 - Routine Abdominal Exam Present: normal bowel sounds, nontender. Absent: diminished bowel sounds, organomegaly - Routine Rectal Exam Patient deferred: digital exam - Routine Extremities Exam Absent: tenderness - Routine Back/Spine/Pelvis Exam Back/Spine: Present: full ROM - Routine Skin Exam Present: intact, normal turgor - Routine Neurological Exam Present: alert, oriented X3 - Detailed Neurological Exam: Coma Scale Eye Opening: Spontaneous (4) - Routine Psychiatric Exam Present: normal affect Data - Labs CBC & Chem 7: 04/06/24 14:20 04/06/24 14:20 Assessment and Plan Patient Active problem list reviewed?: Yes (1) Breast cancer of upper-outer quadrant of left female breast Status: Resolved Assessment and plan: This is a pleasant 45-year-old lady with recent diagnosis of left-sided breast cancer upper outer quadrant. 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 Question is about neoadjuvant chemotherapy. Since the tumor size is small less than 2 cm., the nodes appear negative on the ultrasound. Would recommend upfront surgical resection for exact staging. She will need chemotherapy since she is triple negative. I discussed the case with Dr. Dutta, as well. She underwent a lumpectomy with sentinel node dissection. Her pathology revealed: Pathology revealed: Invasive ductal carcinoma, high grade, 3 cm, with small satellite nodules x2 approximately 0.1 cm. DCIS nuclear grade 3 with comedonecrosis and calcifications. No lymphovascular invasion. Margins negative for invasive and in-situ ductal carcinoma, however invasive ductal carcinoma is less than 0.1 cm to the posterior margin and approximately 0.1 cm to the medial and lateral margins. Re-excision negative. ER negative/SC negative and HER2 Vonda negative. Three sentinel nodes were negative. No lymphovascular invasion. Margins negative for invasive and in-situ ductal carcinoma, however invasive ductal carcinoma is less than 0.1 cm to the posterior margin and approximately 0.1 cm to the medial and lateral margins. Re-excision negative. ER negative/SC negative and HER2 Vonda negative. Three sentinel nodes were negative. She was deemed a candidate for adjuvant chemotherapy, being triple negative. Choices of chemotherapy included dose dense AC x4, followed by Taxol. However she does have a history of cardiac issues with diastolic dysfunction. In the situation I intended to avoid Adriamycin. She had an echocardiogram at [facility] few weeks prior which showed EF of 55%. Recent data suggest benefit of adjuvant carboplatin and Taxol, especially for triple negative disease. She had a Port-A-Cath placed to facilitate the chemotherapy. She got started on 06/03/21. She completed 6 cycles October,, without incident. Subsequently it appears that she had some mental breakdown. There is some history of bipolar disorder. She was inpatient at [facility] for a couple weeks. In November,, she developed COVID. She was at [facility] then transferred to [facility] for another couple weeks for psychiatric admission. It appears now that she is clinically stable. She had an appointment with water quality control engineer in [place] on February 25. She mentioned that she was considering a double mastectomy. I advised her to just get post lumpectomy radiation. She is concerned about dermatological toxicity related to radiation. She can at least meet with the radiation therapist and have her questions answered. She was referred for post lumpectomy radiation therapy. She preferred to go to [facility]. She finally completed the radiation 6 months ago. She had a mammogram on 08/19/2022 which was benign. Recently, she has had right upper quadrant/epigastric pain Fortunately the imaging is negative. She could have gastritis/ulcer disease. She was referred to GI, for further evaluation including endoscopy. Appointment was for 12/28. She saw Pb Anaya, her note: 47-year-old female multiple comorbidities referred for index screening colonoscopy presents with persistent acid reflux. Schedule EGD to r/o pud, nonulcer dyspepsia, esophagitis other endoscopic findings to account for his symptoms as well as screening colonoscopy. Discussed procedures, rare risks, need for escorted due to anesthesia, it in cardiac history, unclear will get anesthesia consult. Discuss MiraLax Gatorade split prep, literature given. She will have H pylori test if positive we will treat-otherwise pantoprazole 40 mg which has given her fairly good response in the past. Lately, she has had CP, and PVCs. An appt will be set up with Dr. Madrid, at her request. She had repeat mammogram, on 10 August. Stable postoperative and post treatment related changes to the left breast, with no new findings suspicious for malignancy. No suspicious findings right breast. Recommend continuing yearly mammography of both breasts to establish a 3 year post operative stability of the left breast. l checked a bone density at the same time. This revealed: 1. DIAGNOSIS: Osteopenia based on the lowest T-score value of -1.2 in the femoral neck applying World Health Organization criteria. 2. 10-YEAR FRACTURE RISK PREDICTION, FRAX: Major osteoporotic fracture (clinical spine, forearm, hip or shoulder) 4.0%. Hip fracture 0.4%. Ca 27.29: 20. She was seen in the ED on 08/22. Narrative: Patient with chronic recurrent epigastric pain had an ultrasound done in 12/17 which was negative. Pain is constant epigastric areas patient for last 3 months no relation with food no nausea no vomiting nose weight loss. Patient does have a strong family history of breast cancer. Also history of pancreatic cancer in her cousins but patient's previous CT scan on 12/[address] scan of the abdomen pelvis revealed: 1. Multiple new peripherally enhancing hepatic lesions, most concerning for metastatic disease. 2. A 1.5 cm hypoattenuating soft tissue focus along the cephalad margin of the pancreatic body is new as compared to prior and may correspond to an adjacent enlarged lymph node or a primary pancreatic lesion. 3. A few new pulmonary nodules at the lung bases which are concerning for metastatic disease in the context of the new hepatic lesions. 4. Borderline enlarged retroperitoneal lymph nodes. Database: From 08/22: CBC: WBC 7.8, HGB 14.3, HCT 41.9, PLT 201. CMP: Lytes WNL, BUN 10, INDUSTRIAL RELATIONS DIRECTOR 0.78. LFTs: 0.2/85/37/46. Albumin 4.2. Calcium 9.8. CA 27.29: 71. She had abdominal pain. The oxycodone helped. Liver Mets are likely related to the breast cancer. I proceeded with further evaluation. 08/24 MRI of the abdomen revealed: 1.3 x 1.6 x 1.8 cm mass in the body of the pancreas. No dilatation of the main pancreatic duct. There are numerous peripherally enhancing hepatic masses. There are enlarged gastrohepatic ligament and retroperitoneal lymph nodes. This likely represents metastatic disease. l checked CA 19-9: 18. l proceeded with a PET scan for restaging purposes. She had a biopsy of the liver lesion on 09/06. It revealed: Poorly differentiated carcinoma consistent with pancreatic primary. She saw Dr. Landry Perez at [facility] on 09/20/23. His recommendation was to proceed with FOLFIRINOX based palliative chemotherapy. She underwent chemotherapy teaching. She was started on it on 09/28/23. Here for cycle 6. She has been getting the chemo treatments every 2 weeks. However she would like to go away to [place], so will adjust her schedule accordingly. She had a CT chest and abdomen for re-staging on November 26. This revealed: IMPRESSION: 1. Significantly diminished size and number of lung nodules. 2. Significant reduction in size of liver metastases. 3. Stable left adrenal gland nodule. 4. Right adnexal cyst. 5. Splenomegaly. 6. Port-A-Cath in place. This is great news. I forwarded the results to Dr. Perez. Ca 13/07: 12. She had tolerated the treatment well up till now but, her neuropathy has bothered her with this last cycle. She actually called a week ago, that she wanted to cancel her treatments and take a break. She was seen in the ED yesterday with right upper quadrant abdominal pain. Database from 02/20: CBC: WBC 13.1, HGB 13.2, HCT 38, MCV 94.1, PLT 116. Lytes WNL, glucose 139, BUN 8, INDUSTRIAL RELATIONS DIRECTOR 0.74. LFTs: 0.4/140/30/27. CA 19:31. CT scan of the chest abdomen pelvis from 02/20 revealed: 1. Hypoattenuating region adjacent to the distal portion of the left IJ port catheter, suspicious for venous thrombus within the lower internal jugular vein and brachiocephalic vein. 2. Multiple hepatic lesions are redemonstrated. The largest of these measures up to approximately 2.2 cm in diameter, previously 2.9 on 11/26/2023. Any of the remaining hepatic lesions appear more distinct than on the prior examination, though some differences could potentially be due to the differences in post contrast timing and direct comparison of size is limited. 3. No significant change in appearance of several bilateral lung nodules since 12/17/2023. 4. Stable appearance of left adrenal nodule. She was given a dose of Lovenox in the ED. I proceeded with an ultrasound of the left upper extremity, this revealed: No DVT demonstrated in the left upper extremity Since there is a discrepancy in the results from CT scan and ultrasound, I have requested input from Dr. Hernandez to clarify the issue. Will then decide if she needs to continue the Lovenox. I faxed over the imaging results to Dr. Landry Perez. She had elected to take a break from treatment over the summer. She has not been treated since February 14. More recently she has had increasing pain, decreased appetite and some weight loss. PLAN: I will proceed with imaging studies to restage her. Will then decide about reintroducing the treatment based upon the results. Meanwhile she has not been using the Lovenox. I advised her to at least take the Eliquis for now. She did not have a blood return from the port. Will proceed with a dye study, then decide about tPA instillation if she has a fibrin sheath there. She will return in a couple of weeks for a follow-up visit All her and her sister's questions were answered to her satisfaction. Thank you, CC: Dr. Dutta. Dr. Enriquez. Addendum: 04/09: Patient called about increasing in the abdomen. Advised her to the ER. She did not feel like it. Added MS Contin 30 mg b.i.d., to oxycodone 10 q.4 hours p.r.n. - Time Spent With Patient Time Spent with Patient (in minutes): 25
[2024-04-06 14:22] LABS: MANUAL DIFF FLAG NO
[2024-04-06 14:27] LABS: Basophils Percent Auto 0.2 % (0-2); Hematocrit 38.7 % (37.0-47.0); Hemoglobin 13.3 g/dl (12.0-16.0); Imm Gran Abs Auto 0.04 X10*3/uL (0.00-0.03); Imm Gran Pct Auto 0.4 % (0.0-0.4); Lymphocytes Absolute Auto 1.2 X10*3/uL (1.2-4.9); Lymphocytes Percent Auto 13.7 % (20-40); Mean Corpuscular HGB Conc 34.4 g/dl (31.0-35.0); Mean Corpuscular Hemoglobin 28.8 pg (27.0-33.0); Mean Corpuscular Volume 83.8 fL (80.0-98.0); Mean Platelet Volume 8.5 fL (9.4-12.3); Monocytes Absolute Auto 0.8 X10*3/uL (0.1-1.2); Monocytes Percent Auto 8.7 % (2-11); Platelet Count 239 X10*3/uL (160-400); Red Blood Count 4.62 X10*6/uL (4.20-5.50); Red Cell Distribution Width 14.2 % (11.0-16.0)
--- NOTE | 2024-04-06 14:39 | MHC.HEMONC ---
Here for follow up and port flush. Port accessed, flushes well with NS, but no blood return noted. No pain or swelling at the site. Flushed with heparin and de-accessed. Dr Torres is aware, and port study ordered. Call to IR to schedule, message left. Will call pt with appointment time.
[2024-04-06 14:46] LABS: Alanine Aminotransferase 28 U/L (0-31); Albumin Level 3.9 g/dL (3.5-5.0); Alkaline Phosphatase 133 U/L (39-117); Anion Gap 13 (12-20); Aspartate Amino Transferase 53 U/L (5-31); Bilirubin Total 0.5 mg/dL (0.0-1.0); Blood Urea Nitrogen 11 mg/dL (9-16); Calcium 9.5 mg/dL (8.4-10.2); Carbon Dioxide 28 mmol/L (22-29); Chloride 97 mmol/L (96-108); Creatinine Clr Calc Pharmacy 68.2; Estimated Glomerular Filt Rate > 60; Glucose Random 96 mg/dL (60-115); Potassium 3.6 mmol/L (3.3-5.1); Sodium 134 mmol/L (135-145); Total Protein 7.6 g/dL (6.5-8.0)
--- NOTE | 2024-04-07 11:16 | MHC.HEMONC ---
Port study scheduled for 04/11 at 1pm. Called pt to give her appointment time, with no answer. Unable to leave voice mail as mailbox is full. Will try again.
[2024-04-10 15:18] LABS: Carbohydrate Antigen 19-9 192 U/mL (<34)
--- NOTE | 2024-04-10 15:51 | MHC.HEMONC ---
Triage call-pt called requesting refill on oxycodone 10mg. Request given to Dr Dodd (covering for Dr Torres)
--- NOTE | 2024-04-12 16:43 | MHC.HEMONC ---
Triage call from pt. She states she is almost out of oxycodone, and per the pharmacy, it can't be filled until 04/17. She states she only has 5 tabs left, and is asking if her dose is increased, could she then get more pills. She asked if the doctor won't do that, is there a bridge to give her a few pills until she can get her refill on 04/17. Did discuss with Dr Dodd, and per , pt can try tylenol or extra strength tylenol for breakthrough pain, as pt recently started MScontin. PT is agreeable to try that.
--- NOTE | 2024-04-17 16:13 | MHC.HEMONC ---
Triage call-received call from pt questioning when CT will be scheduled. Per Marie Becerra awaiting PA which was submitted on 04/06/24-states should receive PA approval by 04/21/24. Pt notified. Pt states she has been vomiting bile over the weekend. States she started taking zofran with relief. States she is anxious to re start chemotherapy
--- NOTE | 2024-04-20 14:34 | HO.HEMONCSCH ---
Patient scheduled for CT Abd/Pelvis and Chest with contrast on April 24 at 2:45pm fast for 3 hours patient notified by phone
--- NOTE | 2024-04-24 15:44 | MHC.HEMONC ---
Pt present requesting stronger pain medication. Dr Torres notified. Plan for fentanyl patch- pt has [employer] insurance. PA request given to Tanya Espinoza to facilitate
--- NOTE | 2024-04-25 11:08 | MHC.HEMONC ---
Pt scheduled to resumes Folfirinox C11D1 on 05/01/24 pending PA secondary to change in insurance
--- NOTE | 2024-04-25 12:37 | HO.HEMONCPA ---
Addendum entered by Marie Becerra 06/07/24 11:36: TON HOFFMANN DOS- 12/30/23 to 12/29/2024 AND UDENDYCA DOS 12/30/23 -12/29/24 FOR 26 VISITS AUTH#[id number] PA for J9206- Irinotecan, J9263- Oxaliplatin , J0640- Leucovorin Calcium, J9190- Fluorouracil APPROVED for 14 VISITS. Auth # [id number]. DOS- 04/25/24 to 04/23/2025 Addendum entered by Marie Becerra 05/01/24 12:17: TON HOFFMANN DOS- 12/30/23 to 12/29/2024 AND UDENDYCA DOS 12/30/23 - 04/24/25 FOR 26 VISITS AUTH#[id number] PA for J9206- Irinotecan, J9263- Oxaliplatin , J0640- Leucovorin Calcium, J9190- Fluorouracil APPROVED for 14 VISITS. Auth # [id number]. DOS- 04/25/24 to 04/23/2025 Addendum entered by Tanya Espinoza 04/26/24 12:56: PA for J9206- Irinotecan, J9263- Oxaliplatin , J0640- Leucovorin Calcium, J9190- Fluorouracil, and Udenyca ([id number]) APPROVED for 14 VISITS. Auth # [id number]. DOS- 04/25/24 to 04/23/2025. DOCUMENT SCANNED IN THE CHART TON HOFFMANN DOS- 12/30/23 to 12/29/2024. AUTH#[id number] Original Note: PA request for J9206- Irinotecan, J9263- Oxaliplatin , J0640- Leucovorin Calcium, J9190- Fluorouracil, J1453- Fosaprepitant & J2506- Neulasta (pegfilgrastim) REQUESTED. AWAITING DECISION.
--- NOTE | 2024-04-25 16:05 | MHC.HEMONC ---
Addendum entered by Kenny Tan RN 04/28/24 17:11: Nurse called pt, informed her that she has received PA for her tx scheduled Wed morning, she said she'll be there. She also asked if Dr. Torres was there to ask about some additional questions she had about her scan results, nurse replied that she was gone for the day, but re-oriented pt about how to use the on-call system, noting that Dr. Torres is the oncologist on-call for the whole weekend. Pt was appreciative. Original Note: Triage all-pt called and notified of up coming chemotherapy appointment scheduled for 05/01/24 at 0800 pending PA
[2024-05-01 08:28] VITALS: BP 107/71; PULSE 112; RESP 18; TEMP 36.4; O2SAT 97; BMI 22.2
[2024-05-01 09:03] LABS: MANUAL DIFF FLAG NO
[2024-05-01 09:05] LABS: Basophils Percent Auto 0.3 % (0-2); Hematocrit 32.7 % (37.0-47.0); Hemoglobin 10.9 g/dl (12.0-16.0); Imm Gran Abs Auto 0.11 X10*3/uL (0.00-0.03); Lymphocytes Absolute Auto 0.7 X10*3/uL (1.2-4.9); Lymphocytes Percent Auto 6.1 % (20-40); Mean Corpuscular HGB Conc 33.3 g/dl (31.0-35.0); Mean Corpuscular Hemoglobin 27.1 pg (27.0-33.0); Mean Corpuscular Volume 81.3 fL (80.0-98.0); Mean Platelet Volume 9.3 fL (9.4-12.3); Monocytes Absolute Auto 0.9 X10*3/uL (0.1-1.2); Monocytes Percent Auto 8.3 % (2-11); Neutrophils Absolute Auto 9.1 x10*3/uL (2.0-8.3); Neutrophils Percent Auto 84.3 % (45-73); Platelet Count 147 X10*3/uL (160-400); Red Blood Count 4.02 X10*6/uL (4.20-5.50); Red Cell Distribution Width 15.6 % (11.0-16.0); White Blood Count 10.7 X10*3/uL (4.8-10.8)
[2024-05-01 09:25] LABS: Alanine Aminotransferase 26 U/L (0-31); Albumin Level 3.3 g/dL (3.5-5.0); Alkaline Phosphatase 228 U/L (39-117); Anion Gap 16 (12-20); Aspartate Amino Transferase 84 U/L (5-31); Bilirubin Total 0.5 mg/dL (0.0-1.0); Blood Urea Nitrogen 14 mg/dL (9-16); Calcium 8.9 mg/dL (8.4-10.2); Carbon Dioxide 26 mmol/L (22-29); Chloride 96 mmol/L (96-108); Creatinine Clr Calc Pharmacy 64.1; Estimated Glomerular Filt Rate > 60; Glucose Random 159 mg/dL (60-115); Potassium 3.5 mmol/L (3.3-5.1); Sodium 134 mmol/L (135-145); Total Protein 6.9 g/dL (6.5-8.0)
--- NOTE | 2024-05-01 09:34 | PM.HEMONCPN ---
Medical Summary - Medical Summary Date of Service: 05/01/24 Chief complaint: Follow-up for: 1. Pancreatic carcinoma. 2. Breast cancer. Primary Care Provider: Carlyn Enriquez MD Medical Summary: DIAGNOSIS: LEFT BREAST CANCER UPPER OUTER QUADRANT. CURRENT THERAPY: STATUS POST LUMPECTOMY ON 04/29/21. Pathology revealed: Invasive ductal carcinoma, high grade, 3 cm, with small satellite nodules x2 approximately 0.1 cm. DCIS nuclear grade 3 with comedonecrosis and calcifications. No lymphovascular invasion. Margins negative for invasive and in-situ ductal carcinoma, however invasive ductal carcinoma is less than 0.1 cm to the posterior margin and approximately 0.1 cm to the medial and lateral margins. Re-excision negative. ER negative/IA negative and HER2 Vonda negative. Three sentinel nodes were negative. Recieved weekly carboplatin Taxol based chemotherapy. Cycle 1 on 06/03/21. Completed Cycle 6, day 15, on November 04. Now with metastatic pancreatic carcinoma with liver metastases. Started on FOLFIRINOX 09/28/23. Second dose 10/12. Third dose 10/26/23. Fifth dose 11/23. Had 10th dose on 02/01/24. Took a break after that. Here to restart treatment. Interval History Interval history: Marah Rivera is a pleasant 48 year old lady, here for a follow-up visit. She tells me 3 weeks ago she had developed excruciating pain in her epigastric area. She had called and I added MS Contin 30 mg every 8 hours, in addition to the oxycodone 5 mg, which was later increased to 10 mg. With the regimen her pain has been more manageable though she will be running out of her oxycodone soon. She had lost her appetite. That has picked up somewhat. She has been losing weight. She would like to take Ensure Plus to help her keep her weight up. Her bowels have remained rather constipated. She had to take MOM twice to go. Her energy level is not that great. She denies headaches. Occasional dizziness. No chest pain nor dyspnea. Echocardiogram: normal LVEF. She denies frequency of micturition. She gets occasional aches and pains. She has noticed numbness in her hands and the feet. She has been trying to stay active. She is in good spirits. Rest of the ROS is normal. RECENT HISTORY: She was seen in the ED on 02/20. Narrative: Patient comes to the emergency room complaining of right upper quadrant pain. Patient states that she is known to have stage IV pancreatic cancer, has had multiple doses of chemotherapy. Patient states that at this time, she has on an ?chemotherapy summer vacation and is hoping to stay off of chemo for the summer. Patient states that she was being prescribed oxycodone 5 mg but it was not helping control the pain. Patient denies nausea vomiting, had 1 episode of loose stool. Patient states that yesterday she woke up sweaty, but denies any fever. IMPRESSION: Abdominal pain, Internal jugular vein thrombosis Instructions: Deep Vein Thrombosis (ED), Abdominal Pain (ED) Additional Instructions: Please follow-up with Dr. Torres 1st thing in the morning. If you have any worsening or new symptoms, please return to the emergency room or call 911 She mentions she had taken gabapentin few doses last week. She is concerned that the abdominal pain could have been related to that. She took 10 mg of oxycodone last night. The pain was better today and she only took 5 mg. INTERIM HISTORY: She was seen in the ED on 08/22. Narrative: Patient with chronic recurrent epigastric pain had an ultrasound done in 12/17 which was negative. Pain is constant epigastric areas patient for last 3 months no relation with food no nausea no vomiting nose weight loss. Patient does have a strong family history of breast cancer. Also history of pancreatic cancer in her cousins but patient's previous CT scan on 12/[address] scan of the abdomen pelvis revealed: 1. Multiple new peripherally enhancing hepatic lesions, most concerning for metastatic disease. 2. A 1.5 cm hypoattenuating soft tissue focus along the cephalad margin of the pancreatic body is new as compared to prior and may correspond to an adjacent enlarged lymph node or a primary pancreatic lesion. 3. A few new pulmonary nodules at the lung bases which are concerning for metastatic disease in the context of the new hepatic lesions. 4. Borderline enlarged retroperitoneal lymph nodes. She underwent a biopsy of the liver lesion on 09/06. Unfortunately it revealed: Poorly differentiated carcinoma. Morphologic and immunophenotypic features are consistent with pancreatic primary. She was seen by Dr. Landry Perez, at [facility], on 09/20. RECENT HISTORY: She was actually seen in the ED on 12/19/22. The note: 47-year-old female who presents emergency department for evaluation of right-sided abdominal pain. She states that approximately 2-3 weeks prior she was having very bad heartburn and was using Tums frequently. She states that over the last 1 and half weeks she has been having constant, right-sided abdominal pain. She points to her right upper quadrant area when asked to localize the pain. She states the pain was a constant dull pain. She did have an outpatient ultrasound done on 12/18/2022 which revealed no evidence of cholecystitis or cholelithiasis. She states that last night around 19:00 hours she ate a hot dog. At around 22:00 hours the right upper quadrant pain got worse and became a sharp pain. The pain does radiate to her back. She had associated nausea and has been dry heaving. She denied fever, chills, rhinorrhea, sore throat. She states she has had a chronic cough for weeks but she describes attributes this to a smoker's cough. She states that she has had an increase amount of gas and feels bloated. Patient does have a history breast cancer and she states she had a left lumpectomy, complete chemotherapy in October of 2021 and radiation therapy in April of 2022. bloated feeling. Vital signs were normal. Physical exam did reveal moderate right upper quadrant tenderness a mild right lower quadrant tenderness. I ordered the nursing staff to access the patient's Port-A-Cath I ordered a CBC, CMP, PT/INR, PTT, lipase, lactic acid urinalysis, urine test, COVID-[address] scan of the abdomen pelvis with IV contrast. Patient's pain and nausea will be treated with Toradol 15 mg IV and Zofran 4 mg IV. She was also ordered to get normal saline x1 L. The care was turned over to my colleague, Dr. Alannah Lockwood. Differential Diagnosis Differential diagnosis includes but is not limited to cholecystitis, appendicitis, pancreatitis, metastatic disease, gastritis, viral syndrome, esophagitis. CT scan of the abdomen/pelvis revealed: No acute findings identified in the abdomen/pelvis. Ultrasound of the abdomen from 12/18: IMPRESSION: No evidence of cholelithiasis or cholecystitis. Overall increased echogenicity within the liver may be consistent with fatty change. No free fluid She saw her asbestos coverer doctor, Dimitris. An ultrasound was done which revealed a cyst in the ovary. She did blood work and reassured her. Interim history: She completed cycle 6, day 15, of Carbo/Taxol weekly on 10/27/21. She came here after a long hiatus. She had some social/mental issues. She was seen in the emergency room on 11/10: Narrative: This is a 46-year-old female was brought in by ambulance. The patient was in her car at [facility] and apparentlywas acting bizarrely therefore personnel at [facility] called the ambulance. Patient herself is not forthcoming with regard to history. She is lying on her side with her hand over her mouth and for his speech is difficult to understand due to it being muffled but her hand. Patient states that her her family has been out to get her. She mentioned something about crisis evaluation. She denies alcohol or drug use. She said she feels that she is very hot. She notes she is being treated for breast cancer. She states she has had low platelets in the past. Patient also notes that she is DNR ?for any number of reasons? The patient appears to be manic, she is shouting at people that walk by in her in the emergency department, she is making bizarre statements such as she is a DNR but she does not have the paperwork and she does not care and wants to . I suspect that the patient has either bipolar disorder schizophrenia and is not taking her medications therefore she is a danger to herself and I am placing her on a Section 12. The patient will be kept in the emergency department until she can be evaluated by our crisis team. The patient refused to let me give her physical exam. At the end of my shift, the patient's care was turned over to my colleague, Dr. Soto. 01/15, she was seen by her primary care doctor Mina: She has history bipolar disorder, recently discharged from [facility] 01/19/2022,admitted for acute john with psychosis. She has history invasive ductal ca of left breast, and diagnosed to have diastolic dysfunction. She states that she is currently being seen by Dr. Trevino at [facility] for her cardiac follow-up, and will be transferred to [facility] for a double mastectomy. Patient states that she needs to be seen by psychiatrist. She was seen and evaluated by our mental health specialist, Rachael, who reviewed her discharge from recent psychiatric admission, and she was reminded that she is already has seen by [facility] a psychiatrist at [place] and has a follow-up appointment. Patient was given the number to contact her psychiatrist to schedule an appointment. She states that she has been feeling well at present time with no complaints of any chest pain, no suicidal ideations. She is trying to apply for disability, has been denied 4 times. Previous history: 1. She tells me, 1 of her teeth broke while biting into something. She had seen the dentist. She may need to have the tooth removed. 2. She had an abnormal mammogram. This was done on ,02/28 and revealed: Left breast has new mass, posterior upper outer quadrant in area of palpable in measuring 1.7 cm. Ultrasound demonstrated: Heterogenous macro lobulated hypoechoic mass posterior upper outer quadrant measurin.8 and 1.4 time 1.7 cm. Left axillary nodes showing normal fatty hilus and normal color. 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 She had her lumpectomy done on 04/29. She tells me that her surgery went well. The incision does appear to be healing, the open area has closed up. No more drainage. She had a follow-up appointment with Dr. Dutta. 3. Cardiac issues: She has had some cardiac issues. She was seen by Dr. Morse who diagnosed diastolic dysfunction. She went to Dr. Trevino in [place] who did right heart catheterization. He mention some muscular dysfunction/autonomic dysfunction. No treatment was suggested. Clinical trial was offered that she declined. She actually had an appointment with Dr. Brewer. 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 She still has her regular periods. Family history: Her mom was diagnosed with breast cancer at 38. She lived for 7 years. of metastatic disease. 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 She is not . She has no children. She smokes half a pack a day. She drinks very little alcohol. Review of Systems - Constitutional Reports no additional constitutional complaints - Eyes Reports no additional eye complaints - ENT Reports no additional ear, nose, mouth, and throat complaints - Cardiovascular Reports no additional cardiovascular complaints - Respiratory Reports no additional respiratory complaints - Gastrointestinal Reports no additional gastrointestinal complaints - Genitourinary Reports no additional female genitourinary complaints - Musculoskeletal Reports no additional musculoskeletal complaints - Integumentary/Breasts Skin/Breast: Reports no additional skin complaints - Neurologic Reports no additional neurologic complaints, Reports dizziness, Denies headache(s), Reports numbness, Reports paresthesias, Reports weakness - Psychiatric Reports no additional psychiatric complaints - Endocrine Reports no additional endocrine complaints - Hematologic/Lymphatic Reports no additional hematologic/lymphatic complaints - Allergic/Immunologic Reports no additional allergic/immunologic complaints [facility] Medical History: Medical History (Last Reviewed 04/06/24 @ 13:42 by Helen Espinosa) Diastolic dysfunction Exertional dyspnea Family history of breast cancer gene mutation in first degree relative Hx of cyst of breast Hx of lipoma Impaired fasting glucose Invasive ductal carcinoma of left breast Pancreatic carcinoma metastatic to liver Skin lesion of left upper extremity Functional capacity: independent ambulation Patient : No Family History: Family History (Last Reviewed 04/06/24 @ 13:42 by Helen Espinosa) Mother Breast cancer, Onset Age: 38 Father CAD (coronary artery disease) Hyperlipidemia HTN (hypertension) History of cardiac defibrillator placement Pacemaker Family/Other Lymphoma Paternal Grandmother Dementia Sister Substance use disorder Mental health disorder Surgical History: Surgical History (Last Reviewed 04/06/24 @ 13:42 by Helen Espinosa) Endometriosis History of excision of mass History of lumpectomy of left breast Social History: Social History (Last Reviewed 04/06/24 @ 13:42 by Helen Espinosa) Living Situation History: Household Members: Family Housing: House Are you a primary career placement specialist to a significant other at home: No Do you presently have visiting nurse or other home services: No Alcohol History Details: 1. How often do you have a drink containing alcohol?: b. Monthly or less 2. How many drinks containing alcohol do you have on a typical day when you are drinking?: a. 1 or 2 Tobacco History: Patient Tobacco Use Status: Never used Tobacco Tobacco use type: Cigarette Cigarette Packs Per Day: 0.5 e-Cigarette/Vaping Use: Never Used Substance Use History: Use of substances other than those prescribed or required for medical reasons: No Substance Use Type: Marijuana Domestic Abuse History: Have you been hit, kicked, punched, or otherwise hurt by someone within the past year? If so, by whom?: No Do you feel safe in your current relationship?: Yes Advance Directives: Advance Directives Date on File: 11/26/21 Homicidal Assessment: Do you have thoughts of harming others: None Do you have a plan to hurt others: No Plan Do you have the means to hurt others: No Nutrition Assessment: Recently lost weight without trying: No Eating poorly because of decreased appetite: No Patient : No Occupation Assessmet: service: No Current occupational status: unemployed Oncology Screenings - ECOG Performance Status ECOG Performance Status: 0 Home Medications and Allergies Current Medications: Current Medications Acetaminophen (Acetaminophen 325 Mg Tablet) 650 mg PO ONCE GIDEON Stop: 05/01/24 23:59 Atropine Sulfate (Atropine Sulfate 1 Mg/Ml Vial) 0.5 mg SUBCUT ONCE GIDEON Stop: 05/01/24 23:59 Famotidine (Famotidine/Pf 20 Mg/2 Ml Vial) 20 mg IVPUSH ONCE GIDEON Stop: 05/01/24 23:59 Dexamethasone Sodium Phosphate (Decadron) 12 mg in 50 mls @ 200 mls/hr IV ONCE GIDEON Stop: 05/01/24 23:59 Ondansetron HCl (Zofran) 16 mg in 50 mls @ 200 mls/hr IV ONCE GIDEON Stop: 05/01/24 23:59 Fosaprepitant 150 mg/ Sodium (Chloride) 150 mls @ 300 mls/hr IV ONCE GIDEON Stop: 05/01/24 23:59 Home Medications ?Medication ?Instructions ?Recorded ?Confirmed ?Type metoprolol tartrate 25 mg tablet 25 mg PO BID 01/14/21 04/06/24 History nitroglycerin 0.4 mg sublingual 0.4 mg sublingual Q5M PRN Chest 01/14/21 04/06/24 History tablet Pain aripiprazole 10 mg tablet (Abilify) 10 mg PO DAILY psychosis 01/16/22 04/06/24 History hydroxyzine HCl 10 mg PO DAILY PRN Anxiety 02/15/23 04/06/24 History multivitamin with minerals-folic 0.4 tab PO DAILY 08/12/23 04/06/24 History acid 0.4 mg tablet (One-A-Day Women's 50 Plus) morphine 30 mg tablet,extended 30 mg PO Q6H 04/25/24 History release (MS Contin) Allergies Allergy/AdvReac Type Severity Reaction Status Date / Time bee pollen [BEE STINGS] Allergy Severe ANAPHYLAXIS Verified 04/06/24 13:42 Penicillins Allergy Intermediate Unknown Verified 04/06/24 13:42 danazol Allergy Unknown hand Verified 04/06/24 13:42 swelling codeine AdvReac Mild Nausea Verified 04/06/24 13:42 omeprazole [From Prilosec] AdvReac Mild Unknown Verified 04/06/24 13:42 sertraline [Zoloft] AdvReac Unknown increasedi Verified 04/06/24 13:42 rritability Exam Vital signs: Vital Signs Temp 97.6 F 05/01/24 08:28 Pulse 112 H 05/01/24 08:28 Resp 18 05/01/24 08:28 BP 107/71 05/01/24 08:28 Pulse Ox 97 05/01/24 08:28 O2 Del Method Room Air 05/01/24 08:28 Intake & Output 04/30/24 05/01/24 05/01/24 18:59 06:59 18:59 Other: Weight 55 kg [place]eline Weight in Grams [id number] Weight 55 kg BMI result Body Mass Index 22.2 - Constitutional Present: mild distress - Routine HEENT Exam Head: Present: normocephalic Eye: Present: normal appearance ENT: Present: mucous membranes moist - Routine Neck Exam Present: full ROM - Routine Respiratory Exam Present: CTAB - Routine Cardiovascular Exam Cardiovascular: Present: RRR, S1, S2. Absent: rubs, S3, S4 - Routine Abdominal Exam Present: normal bowel sounds, nontender. Absent: diminished bowel sounds, organomegaly - Routine Rectal Exam Patient deferred: digital exam - Routine Extremities Exam Absent: tenderness - Routine Back/Spine/Pelvis Exam Back/Spine: Present: full ROM - Routine Skin Exam Present: intact, normal turgor - Routine Neurological Exam Present: alert, oriented X3 - Detailed Neurological Exam: Coma Scale Eye Opening: Spontaneous (4) - Routine Psychiatric Exam Present: normal affect Data - Labs CBC & Chem 7: 05/01/24 08:50 05/01/24 08:50 Assessment and Plan Patient Active problem list reviewed?: Yes (1) Breast cancer of upper-outer quadrant of left female breast Status: Resolved Assessment and plan: This is a pleasant 45-year-old lady with recent diagnosis of left-sided breast cancer upper outer quadrant. 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 Question is about neoadjuvant chemotherapy. Since the tumor size is small less than 2 cm., the nodes appear negative on the ultrasound. Would recommend upfront surgical resection for exact staging. She will need chemotherapy since she is triple negative. I discussed the case with Dr. Dutta, as well. She underwent a lumpectomy with sentinel node dissection. Her pathology revealed: Pathology revealed: Invasive ductal carcinoma, high grade, 3 cm, with small satellite nodules x2 approximately 0.1 cm. DCIS nuclear grade 3 with comedonecrosis and calcifications. No lymphovascular invasion. Margins negative for invasive and in-situ ductal carcinoma, however invasive ductal carcinoma is less than 0.1 cm to the posterior margin and approximately 0.1 cm to the medial and lateral margins. Re-excision negative. ER negative/IA negative and HER2 Vonda negative. Three sentinel nodes were negative. No lymphovascular invasion. Margins negative for invasive and in-situ ductal carcinoma, however invasive ductal carcinoma is less than 0.1 cm to the posterior margin and approximately 0.1 cm to the medial and lateral margins. Re-excision negative. ER negative/IA negative and HER2 Vonda negative. Three sentinel nodes were negative. She was deemed a candidate for adjuvant chemotherapy, being triple negative. Choices of chemotherapy included dose dense AC x4, followed by Taxol. However she does have a history of cardiac issues with diastolic dysfunction. In the situation I intended to avoid Adriamycin. She had an echocardiogram at [facility] few weeks prior which showed EF of 55%. Recent data suggest benefit of adjuvant carboplatin and Taxol, especially for triple negative disease. She had a Port-A-Cath placed to facilitate the chemotherapy. She got started on 06/03/21. She completed 6 cycles October,, without incident. Subsequently it appears that she had some mental breakdown. There is some history of bipolar disorder. She was inpatient at [facility] for a couple weeks. In November,, she developed COVID. She was at [facility] then transferred to [facility] for another couple weeks for psychiatric admission. It appears now that she is clinically stable. She had an appointment with energy consultant in [place] on February 25. She mentioned that she was considering a double mastectomy. I advised her to just get post lumpectomy radiation. She is concerned about dermatological toxicity related to radiation. She can at least meet with the radiation therapist and have her questions answered. She was referred for post lumpectomy radiation therapy. She preferred to go to [facility]. She finally completed the radiation 6 months ago. She had a mammogram on 08/19/2022 which was benign. Recently, she has had right upper quadrant/epigastric pain Fortunately the imaging is negative. She could have gastritis/ulcer disease. She was referred to GI, for further evaluation including endoscopy. Appointment was for 12/28. She saw Pb Anaya, her note: 47-year-old female multiple comorbidities referred for index screening colonoscopy presents with persistent acid reflux. Schedule EGD to r/o pud, nonulcer dyspepsia, esophagitis other endoscopic findings to account for his symptoms as well as screening colonoscopy. Discussed procedures, rare risks, need for escorted due to anesthesia, it in cardiac history, unclear will get anesthesia consult. Discuss MiraLax Gatorade split prep, literature given. She will have H pylori test if positive we will treat-otherwise pantoprazole 40 mg which has given her fairly good response in the past. Lately, she has had CP, and PVCs. An appt will be set up with Dr. Madrid, at her request. She had repeat mammogram, on 10 August. Stable postoperative and post treatment related changes to the left breast, with no new findings suspicious for malignancy. No suspicious findings right breast. Recommend continuing yearly mammography of both breasts to establish a 3 year post operative stability of the left breast. l checked a bone density at the same time. This revealed: 1. DIAGNOSIS: Osteopenia based on the lowest T-score value of -1.2 in the femoral neck applying World Health Organization criteria. 2. 10-YEAR FRACTURE RISK PREDICTION, FRAX: Major osteoporotic fracture (clinical spine, forearm, hip or shoulder) 4.0%. Hip fracture 0.4%. Ca 27.29: 20. She was seen in the ED on 08/22. Narrative: Patient with chronic recurrent epigastric pain had an ultrasound done in 12/17 which was negative. Pain is constant epigastric areas patient for last 3 months no relation with food no nausea no vomiting nose weight loss. Patient does have a strong family history of breast cancer. Also history of pancreatic cancer in her cousins but patient's previous CT scan on 12/[address] scan of the abdomen pelvis revealed: 1. Multiple new peripherally enhancing hepatic lesions, most concerning for metastatic disease. 2. A 1.5 cm hypoattenuating soft tissue focus along the cephalad margin of the pancreatic body is new as compared to prior and may correspond to an adjacent enlarged lymph node or a primary pancreatic lesion. 3. A few new pulmonary nodules at the lung bases which are concerning for metastatic disease in the context of the new hepatic lesions. 4. Borderline enlarged retroperitoneal lymph nodes. Database: From 08/22: CBC: WBC 7.8, HGB 14.3, HCT 41.9, PLT 201. CMP: Lytes WNL, BUN 10, REGULATORY AFFAIRS DIRECTOR 0.78. LFTs: 0.2/85/37/46. Albumin 4.2. Calcium 9.8. CA 27.29: 71. She had abdominal pain. The oxycodone helped. Liver Mets are likely related to the breast cancer. I proceeded with further evaluation. 08/24 MRI of the abdomen revealed: 1.3 x 1.6 x 1.8 cm mass in the body of the pancreas. No dilatation of the main pancreatic duct. There are numerous peripherally enhancing hepatic masses. There are enlarged gastrohepatic ligament and retroperitoneal lymph nodes. This likely represents metastatic disease. l checked CA 19-9: 18. l proceeded with a PET scan for restaging purposes. She had a biopsy of the liver lesion on 09/06. It revealed: Poorly differentiated carcinoma consistent with pancreatic primary. She saw Dr. Landry Perez at [facility] on 09/20/23. His recommendation was to proceed with FOLFIRINOX based palliative chemotherapy. She underwent chemotherapy teaching. She was started on it on 09/28/23. Here for cycle 6. She has been getting the chemo treatments every 2 weeks. However she would like to go away to [place], so will adjust her schedule accordingly. She had a CT chest and abdomen for re-staging on November 26. This revealed: IMPRESSION: 1. Significantly diminished size and number of lung nodules. 2. Significant reduction in size of liver metastases. 3. Stable left adrenal gland nodule. 4. Right adnexal cyst. 5. Splenomegaly. 6. Port-A-Cath in place. This is great news. I forwarded the results to Dr. Perez. Ca 19/9: 12. She had tolerated the treatment well up till now but, her neuropathy has bothered her with this last cycle. She actually called a week ago, that she wanted to cancel her treatments and take a break. She was seen in the ED yesterday with right upper quadrant abdominal pain. Database from 02/20: CBC: WBC 13.1, HGB 13.2, HCT 38, MCV 94.1, PLT 116. Lytes WNL, glucose 139, BUN 8, REGULATORY AFFAIRS DIRECTOR 0.74. LFTs: 0.4/140/30/27. CA 19/9:31. CT scan of the chest abdomen pelvis from 02/20 revealed: 1. Hypoattenuating region adjacent to the distal portion of the left IJ port catheter, suspicious for venous thrombus within the lower internal jugular vein and brachiocephalic vein. 2. Multiple hepatic lesions are redemonstrated. The largest of these measures up to approximately 2.2 cm in diameter, previously 2.9 on 11/26/2023. Any of the remaining hepatic lesions appear more distinct than on the prior examination, though some differences could potentially be due to the differences in post contrast timing and direct comparison of size is limited. 3. No significant change in appearance of several bilateral lung nodules since 12/17/2023. 4. Stable appearance of left adrenal nodule. She was given a dose of Lovenox in the ED. I proceeded with an ultrasound of the left upper extremity, this revealed: No DVT demonstrated in the left upper extremity Since there is a discrepancy in the results from CT scan and ultrasound, I have requested input from Dr. Hernandez to clarify the issue. Will then decide if she needs to continue the Lovenox. I faxed over the imaging results to Dr. Landry Perez. She had elected to take a break from treatment over the summer. She has not been treated since February 14. Latey she has had increasing abdominal pain, decreased appetite and weight loss. I proceeded with imaging studies to restage her. CT chest abdomen pelvis were done on 04/24 and revealed: 1. Increased conspicuity and size of a lesion centered within the body of the pancreas suspicious for primary pancreatic adenocarcinoma. The lesion partially encases but does not obstruct the adjacent common hepatic artery. 2. Innumerable hepatic metastases increased in size and number compared with 02/21/2024. 3. Multiple pulmonary nodules consistent with metastatic disease increased in size and number compared with 02/21/2024. 4. Newly identified lymphadenopathy. Newly identified left paratracheal, celiac and abdominal/pelvic pericaval and periaortic lymphadenopathy. 5. Unchanged 1.0 cm left adrenal nodule compared with 02/21/2024. 6. The previously noted thrombus adjacent to a catheter within the left internal jugular vein noted on the 02/21/2024 examination is no longer identified and may have resolved. Unfortunately she has had significant disease progression. She is here to resume her treatment. She had removal of the Port-A-Cath and had a new one inserted on 04/25. PLAN: Will give her 3 months of therapy and then restage her with a scan. Hopefully she will respond. To manage her increasing pain intensity I have increased the MS Contin to 60 b.i.d. she can still take oxycodone for breakthrough as needed. I advised her to take nutritional supplements ensure plus 3 times a day to help keep her weight up during the treatment. She will continue on the Eliquis. She will return in a couple of weeks for a follow-up visit All her and her sister's questions were answered to her satisfaction. Thank you, CC: Dr. Dutta. Dr. Enriquez. - Time Spent With Patient Time Spent with Patient (in minutes): 30
[2024-05-01 09:44] LABS: HBc Num1 0.11 S/CO (0.00-0.79); HBsAGNum1 0.51 S/CO (0.00-0.99); Hepatitis B Core Antibody Nonreactive (Nonreactive); Hepatitis B Surface Antigen Negative (Negative); ~Hepatitis B Surface Antibody REACTIVE (Nonreactive)
[2024-05-01] MEDS: Atropine Sulfate 1 MG/ML VIAL 0.5 MG SUBCUT (09:46)
[2024-05-01] MEDS: Famotidine/PF 20 MG/2 ML VIAL IVPUSH (09:46)
[2024-05-01] MEDS: dexAMETHasone sod phosphate/NS 12 MG/50 ML PIGGYBACK 200 MG IV (09:47)
[2024-05-01] MEDS: Leucovorin Calcium 640 MG in Dextrose 5 % 250 ML 141 MG IV (13:28)
[2024-05-01] MEDS: oxyCODONE HCl Immed Release 5 MG TABLET 10 MG PO (13:55)
--- NOTE | 2024-05-01 14:41 | MHC.HEMONC ---
Pt here for C11D1 FOLFIRINOX (TAHIRA alejandre for 14 visits 04/23/25) Pt states she feels fatigue, has intermittent nausea with vomiting, continues with neuropathy in feet,legs,hands and fingers. States has 8/10 abdominal pain which she takes prescribed pain medication with some relief. States has constipation which she manages with laxatives as needed. New port placed last week left upper chest accessed with blood return noted. Labs drawn from port-specimen to lab. Lab results reviewed-okay to receive treatment. Chemo consent obtained. Dr Torres into see pt. Pre medicated with zofran, dexamethasone, tylenol, pepcid, atropine sulfate sc right arm,emend. Folfirinox given as ordered, oxaliplatin at 50%, irinotecan and Flurouricil at 75%. Oxycodone 10mg given for 8/10 abdominal pain with relief per pt. Home chemo pump attached as ordered. Discharge packet given with next appointment scheduled. Pt to return on Wednesday for pump take down and Udenyca injection. Escorted to front of hospital via wheelchair. Instructed to cll with any questions or concerns-verbalizes understanding of information given
[2024-05-01] MEDS: fluorouraciL 650 MG in Syringe 0 ML 156 MG IVPUSH (15:01)
[2024-05-03] MEDS: Heparin Sodium,Porcine Flush 500 UNIT/5 ML SYRINGE IVFLUSH (13:21)
--- NOTE | 2024-05-03 13:43 | MHC.HEMONC ---
Patient came in for pump takedown and has been having constipation since Wednesday. She has been getting some relief with Milk of Magnesia but I gave her information on a bowel regimen from [facility] and advised her to call if she gets loose bowels. She has poor appetite so I gave her Nutrition Folder from our Review Engineer so that she can incorporate some good nutrition. I also told her I could refer her to Brynn NINO in the future.
[2024-05-03] MEDS: 0.9 % Sodium Chloride 500 ML IV (13:52)
--- NOTE | 2024-05-03 15:43 | MHC.HEMONC ---
Pt here for pump take down. Pt reports is constipated, otherwise same. Pt spoke with Tanja VILLANUEVA who gave patient information on managing constipation. Pt has pain in abdomen and is taking oxycodone and fentanyl patch which is making her constipated. States will use milk of magnesia when she gets home. Pump verified at zero and disconnected. Udenyca given subq BRUNA. Pt asking for hydration. NS 500ml iv given over 1 hour. Pt tolerated it well. Port de accessed with heparin and pt departed via wheelchair with friend.
[2024-05-15 08:57] LABS: MANUAL DIFF FLAG NO
[2024-05-15 08:59] VITALS: BP 107/62; PULSE 122; TEMP 36.1; O2SAT 98; BMI 21.8
[2024-05-15 09:00] LABS: Basophils Absolute Auto 0.1 X10*3/uL (0.0-0.2); Basophils Percent Auto 0.4 % (0-2); Hematocrit 33.6 % (37.0-47.0); Hemoglobin 10.9 g/dl (12.0-16.0); Imm Gran Abs Auto 0.67 X10*3/uL (0.00-0.03); Imm Gran Pct Auto 4.9 % (0.0-0.4); Lymphocytes Percent Auto 7.4 % (20-40); Mean Corpuscular HGB Conc 32.4 g/dl (31.0-35.0); Mean Corpuscular Hemoglobin 26.5 pg (27.0-33.0); Mean Corpuscular Volume 81.6 fL (80.0-98.0); Mean Platelet Volume 10.1 fL (9.4-12.3); Monocytes Absolute Auto 1.2 X10*3/uL (0.1-1.2); Monocytes Percent Auto 8.7 % (2-11); Neutrophils Absolute Auto 10.8 x10*3/uL (2.0-8.3); Neutrophils Percent Auto 78.6 % (45-73); Platelet Count 110 X10*3/uL (160-400); Red Blood Count 4.12 X10*6/uL (4.20-5.50); White Blood Count 13.7 X10*3/uL (4.8-10.8)
[2024-05-15 09:12] LABS: Alanine Aminotransferase 19 U/L (0-31); Albumin Level 3.3 g/dL (3.5-5.0); Alkaline Phosphatase 235 U/L (39-117); Anion Gap 17 (12-20); Aspartate Amino Transferase 71 U/L (5-31); Bilirubin Total 0.3 mg/dL (0.0-1.0); Blood Urea Nitrogen 11 mg/dL (9-16); Calcium 8.9 mg/dL (8.4-10.2); Carbon Dioxide 27 mmol/L (22-29); Chloride 97 mmol/L (96-108); Creatinine Clr Calc Pharmacy 67.3; Estimated Glomerular Filt Rate > 60; Glucose Random 146 mg/dL (60-115); Potassium 3.2 mmol/L (3.3-5.1); Sodium 138 mmol/L (135-145); Total Protein 6.4 g/dL (6.5-8.0)
[2024-05-15 09:33] LABS: HBsAGNum1 0.36 S/CO (0.00-0.99); Hepatitis B Core Antibody Nonreactive (Nonreactive); Hepatitis B Surface Antigen Negative (Negative); ~Hepatitis B Surface Antibody REACTIVE (Nonreactive)
[2024-05-15] MEDS: dexAMETHasone sod phosphate/NS 12 MG/50 ML PIGGYBACK 200 MG IV (09:37)
[2024-05-15] MEDS: Fosaprepitant Dimeglumine 150 MG in 0.9 % Sodium Chloride 145 ML 300 MG IV (09:37)
[2024-05-15] MEDS: Acetaminophen 325 MG TABLET 650 MG PO (09:37)
[2024-05-15] MEDS: Famotidine/PF 20 MG/2 ML VIAL IVPUSH (09:37)
[2024-05-15] MEDS: Atropine Sulfate 1 MG/ML VIAL 0.5 MG SUBCUT (09:44)
[2024-05-15] MEDS: Potassium Chloride ER 20 MEQ TAB.ER.PRT PO (10:28)
[2024-05-15] MEDS: Leucovorin Calcium 640 MG in Dextrose 5 % 250 ML 188 MG IV (13:20)
--- NOTE | 2024-05-15 14:46 | MHC.HEMONC ---
c12d1 folfirinox today. Accopanied by sister. Port accessed with good blood return. Labs drawn and reviewed. Pt c/o of ongoing peripheral neuropathy, nausea and vomiting. Taking increased dose of morphine (60 mg) for abdominal pain with good effect. Pt aware of next appointments, discharge packet provided.
[2024-05-15] MEDS: fluorouraciL 650 MG in Syringe 0 ML 156 MG IVPUSH (14:57)
[2024-05-17] MEDS: Heparin Sodium,Porcine Flush 500 UNIT/5 ML SYRINGE IVFLUSH (13:45)
--- NOTE | 2024-05-17 14:29 | MHC.HEMONC ---
spoke to pt in great detail about quality of life. pt is open to hospice but not sure the right time. note left for Joya, social media specialist, to see pt. note also left with dr butler about need for continuing chemo. pt c/o neuropathy in legs going up to her knees unable to walk up stairs and also in fingers where she is dropping everything . pt is returning in 2 weeks
--- NOTE | 2024-05-17 15:25 | MHC.HEMONCSW ---
This television writer met with Marah for a 20 minute session to discuss concerns and needs. Patient is a 48 year old woman with a history of breast cancer and current stage four pancreatic cancer. Patient is experiencing significant pain and neuropathy in hands, feet, and legs, which impacts her ability to function. Patient is living with her sister, who has a history of mental health diagnosis. Sister is patient's primary caregiver. Patient is considering entering hospice and would like to make a decision regarding continuing treatment. Marah is considering home hospice care and would like more information regarding this option and support. Patient had an anxious mood and full affect. Her cognition was intact, though she did describe chemo brain when forgetting what we had been talking about. Follow up on 05/29 when patient is scheduled for next treatment.
[2024-05-19 10:50] LABS: Carbohydrate Antigen 19-9 774 U/mL (<34)
--- NOTE | 2024-05-25 15:03 | MHC.HEMONC ---
Addendum entered by Tigist Grayson RN 05/26/24 15:37: Pt here for IV hydration. Port accessed with blood return noted. 0.9% NS infused as ordered. Port flushed with heparin and de accessed. Pt aware of next appointment. Escorted to front of hospital via wheelchair Original Note: Triage call-pt called stating she will need IV hydration tommorrow secondary to several days with vomiting and diarrhea. Pt states her abdomen is distended. States she is taking oxycontin 60mg tid. Questioning if she can take tylenol or motrin or oxycodone if needed for break through pain. Instructed to try tylenol before taking oxycodone for break through pain. Verbalizes understanding of information given
[2024-05-26] MEDS: 0.9 % Sodium Chloride 500 ML IV (14:30)
[2024-05-26 15:06] VITALS: BP 95/58; PULSE 110; RESP 18; TEMP 36.4; O2SAT 98
[2024-05-29 08:55] LABS: Hematocrit 32.5 % (37.0-47.0); Hemoglobin 10.4 g/dl (12.0-16.0); Mean Corpuscular Hemoglobin 25.9 pg (27.0-33.0); Mean Platelet Volume 9.8 fL (9.4-12.3); Red Blood Count 4.01 X10*6/uL (4.20-5.50); White Blood Count 13.4 X10*3/uL (4.8-10.8)
[2024-05-29 09:00] LABS: Platelet Count 82 X10*3/uL (160-400)
[2024-05-29 09:07] LABS: Alanine Aminotransferase 22 U/L (0-31); Albumin Level 2.9 g/dL (3.5-5.0); Alkaline Phosphatase 276 U/L (39-117); Anion Gap 14 (12-20); Aspartate Amino Transferase 81 U/L (5-31); Bilirubin Total 0.4 mg/dL (0.0-1.0); Blood Urea Nitrogen 22 mg/dL (9-16); Calcium 8.6 mg/dL (8.4-10.2); Carbon Dioxide 25 mmol/L (22-29); Chloride 99 mmol/L (96-108); Creatinine Clr Calc Pharmacy 64.9; Estimated Glomerular Filt Rate > 60; Glucose Random 146 mg/dL (60-115); Magnesium 1.6 mg/dL (1.6-2.6); Potassium 3.8 mmol/L (3.3-5.1); Sodium 134 mmol/L (135-145); Total Protein 5.6 g/dL (6.5-8.0)
[2024-05-29 09:08] VITALS: BP 85/52; PULSE 115; RESP 18; TEMP 36.2; O2SAT 99; BMI 21.7
[2024-05-29 09:29] LABS: HBS Num1 > 1000.00 mIU/mL (0-7.99); HBsAGNum1 0.46 S/CO (0.00-0.99); Hepatitis B Core Antibody Nonreactive (Nonreactive); Hepatitis B Surface Antigen Negative (Negative); ~Hepatitis B Surface Antibody REACTIVE (Nonreactive)
[2024-05-29 09:45] LABS: Band Neutrophils Percent 5 % (3-5); Basophils Abs Manual 0.3 X10*3/uL (0.0-0.2); Basophils Percent Manual 2 % (0-2); Eosinophils Absolute Manual 0.1 X10*3/uL (0.0-0.4); Eosinophils Percent Manual 1 % (0-4); Lymphocytes Absolute Manual 0.5 X10*3/uL (1.2-4.9); Lymphocytes Percent Manual 4 % (20-40); Metamyelocytes Absolute 0.3 X10*3/uL; Metamyelocytes Percent 2 %; Monocytes Absolute Manual 1.3 X10*3/uL (0.1-1.2); Monocytes Percent Manual 10 % (2-11); Neutrophils Absolute Manual 10.9 X10*3/uL (2.0-8.3); Neutrophils Percent Manual 76 % (45-73)
[2024-05-29 09:46] LABS: Acanthocytes 1+ (0-2) /OIF; Burr Cells 1+ (0-2) /OIF; Platelet Estimate DECREASED (NORMAL); Platelet Morphology Comment NORMAL; RBC Morphology NOTED
[2024-05-29] MEDS: Fosaprepitant Dimeglumine 150 MG in 0.9 % Sodium Chloride 145 ML 300 MG IV (10:33)
[2024-05-29] MEDS: dexAMETHasone sod phosphate/NS 12 MG/50 ML PIGGYBACK 200 MG IV (10:33)
[2024-05-29] MEDS: Famotidine/PF 20 MG/2 ML VIAL IVPUSH (10:34)
[2024-05-29] MEDS: Acetaminophen 325 MG TABLET 650 MG PO (10:38)
--- NOTE | 2024-05-29 13:08 | P.PNHO-ONC_ITS ---
Medical Summary - Medical Summary Date of Service: 05/29/24 Chief complaint: Follow-up for: Metastatic pancreatic carcinoma. Primary Care Provider: Carlyn Enriquez MD Medical Summary: DIAGNOSIS: LEFT BREAST CANCER UPPER OUTER QUADRANT. CURRENT THERAPY: STATUS POST LUMPECTOMY ON 04/29/21. Pathology revealed: Invasive ductal carcinoma, high grade, 3 cm, with small satellite nodules x2 approximately 0.1 cm. DCIS nuclear grade 3 with comedonecrosis and calcifications. No lymphovascular invasion. Margins negative for invasive and in-situ ductal carcinoma, however invasive ductal carcinoma is less than 0.1 cm to the posterior margin and approximately 0.1 cm to the medial and lateral margins. Re-excision negative. ER negative/MD negative and HER2 Vonda negative. Three sentinel nodes were negative. Recieved weekly carboplatin Taxol based chemotherapy. Cycle 1 on 06/03/21. Completed Cycle 6, day 15, on November 04. Now with metastatic pancreatic carcinoma with liver metastases. Started on FOLFIRINOX 09/28/23. Second dose 10/12. Third dose 10/26/23. Fifth dose 11/23. Had 10th dose on 02/01/24. Took a break after that. Restarted treatment on 05/01. Here for cycle 3. Interval History Interval history: Marah Rivera is a pleasant 48 year old lady, here for a follow-up visit. Marah had a tough week after the chemotherapy. She had nausea vomiting and loose bowels. She almost gave up and exposed thinking about hospice. However this past week she has felt better. She is now willing to continue treatment. Her energy level is not that great. She denies headaches. Occasional dizziness. No chest pain nor dyspnea. Echocardiogram: normal LVEF. Her pain is better controlled. She would actually like to cut down on the morphine. It makes her drowsy. Denies any heartburn nausea or vomiting now. Bowels are working without any gross blood in it. Her appetite is picking up. She has lost some weight. She denies frequency of micturition. She gets occasional aches and pains. She has noticed numbness in her hands and the feet. She has been trying to stay active. She is in good spirits. Rest of the ROS is normal. INTERIM HISTORY: She tells me 3 weeks ago she had developed excruciating pain in her epigastric area. She had called and I added MS Contin 30 mg every 8 hours, in addition to the oxycodone 5 mg, which was later increased to 10 mg. With the regimen her pain has been more manageable though she will be running out of her oxycodone soon. She had lost her appetite. That has picked up somewhat. She has been losing weight. She would like to take Ensure Plus to help her keep her weight up. Her bowels have remained rather constipated. She had to take MOM twice to go. RECENT HISTORY: She was seen in the ED on 02/20. Narrative: Patient comes to the emergency room complaining of right upper quadrant pain. Patient states that she is known to have stage IV pancreatic cancer, has had multiple doses of chemotherapy. Patient states that at this time, she has on an ?chemotherapy summer vacation and is hoping to stay off of chemo for the summer. Patient states that she was being prescribed oxycodone 5 mg but it was not helping control the pain. Patient denies nausea vomiting, had 1 episode of loose stool. Patient states that yesterday she woke up sweaty, but denies any fever. IMPRESSION: Abdominal pain, Internal jugular vein thrombosis Instructions: Deep Vein Thrombosis (ED), Abdominal Pain (ED) Additional Instructions: Please follow-up with Dr. Torres 1st thing in the morning. If you have any worsening or new symptoms, please return to the emergency room or call 911 She mentions she had taken gabapentin few doses last week. She is concerned that the abdominal pain could have been related to that. She took 10 mg of oxycodone last night. The pain was better today and she only took 5 mg. INTERIM HISTORY: She was seen in the ED on 08/22. Narrative: Patient with chronic recurrent epigastric pain had an ultrasound done in 12/17 which was negative. Pain is constant epigastric areas patient for last 3 months no relation with food no nausea no vomiting nose weight loss. Patient does have a strong family history of breast cancer. Also history of pancreatic cancer in her cousins but patient's previous CT scan on 12/[address] scan of the abdomen pelvis revealed: 1. Multiple new peripherally enhancing hepatic lesions, most concerning for metastatic disease. 2. A 1.5 cm hypoattenuating soft tissue focus along the cephalad margin of the pancreatic body is new as compared to prior and may correspond to an adjacent enlarged lymph node or a primary pancreatic lesion. 3. A few new pulmonary nodules at the lung bases which are concerning for metastatic disease in the context of the new hepatic lesions. 4. Borderline enlarged retroperitoneal lymph nodes. She underwent a biopsy of the liver lesion on 09/06. Unfortunately it revealed: Poorly differentiated carcinoma. Morphologic and immunophenotypic features are consistent with pancreatic primary. She was seen by Dr. Landry Perez, at [facility], on 09/20. RECENT HISTORY: She was actually seen in the ED on 12/19/22. The note: 47-year-old female who presents emergency department for evaluation of right- sided abdominal pain. She states that approximately 2-3 weeks prior she was having very bad heartburn and was using Tums frequently. She states that over the last 1 and half weeks she has been having constant, right-sided abdominal pain. She points to her right upper quadrant area when asked to localize the pain. She states the pain was a constant dull pain. She did have an outpatient ultrasound done on 12/18/2022 which revealed no evidence of cholecystitis or cholelithiasis. She states that last night around 19:00 hours she ate a hot dog. At around 22:00 hours the right upper quadrant pain got worse and became a sharp pain. The pain does radiate to her back. She had associated nausea and has been dry heaving. She denied fever, chills, rhinorrhea, sore throat. She states she has had a chronic cough for weeks but she describes attributes this to a smoker's cough. She states that she has had an increase amount of gas and feels bloated. Patient does have a history breast cancer and she states she had a left lumpectomy, complete chemotherapy in October of 2021 and radiation therapy in April of 2022. bloated feeling. Vital signs were normal. Physical exam did reveal moderate right upper quadrant tenderness a mild right lower quadrant tenderness. I ordered the nursing staff to access the patient's Port-A-Cath I ordered a CBC, CMP, PT/INR, PTT, lipase, lactic acid urinalysis, urine test, COVID-[address] scan of the abdomen pelvis with IV contrast. Patient's pain and nausea will be treated with Toradol 15 mg IV and Zofran 4 mg IV. She was also ordered to get normal saline x1 L. The care was turned over to my colleague, Dr. Alannah Lockwood. Differential Diagnosis Differential diagnosis includes but is not limited to cholecystitis, appendicitis, pancreatitis, metastatic disease, gastritis, viral syndrome, esophagitis. CT scan of the abdomen/pelvis revealed: No acute findings identified in the abdomen/pelvis. Ultrasound of the abdomen from 12/18: IMPRESSION: No evidence of cholelithiasis or cholecystitis. Overall increased echogenicity within the liver may be consistent with fatty change. No free fluid She saw her blood coordinator doctor, Dimitris. An ultrasound was done which revealed a cyst in the ovary. She did blood work and reassured her. Interim history: She completed cycle 6, day 15, of Carbo/Taxol weekly on 10/27/21. She came here after a long hiatus. She had some social/mental issues. She was seen in the emergency room on 11/10: Narrative: This is a 46-year-old female was brought in by ambulance. The patient was in her car at [facility] and apparentlywas acting bizarrely therefore personnel at [facility] called the ambulance. Patient herself is not forthcoming with regard to history. She is lying on her side with her hand over her mouth and for his speech is difficult to understand due to it being muffled but her hand. Patient states that her her family has been out to get her. She mentioned something about crisis evaluation. She denies alcohol or drug use. She said she feels that she is very hot. She notes she is being treated for breast cancer. She states she has had low platelets in the past. Patient also notes that she is DNR ?for any number of reasons? The patient appears to be manic, she is shouting at people that walk by in her in the emergency department, she is making bizarre statements such as she is a DNR but she does not have the paperwork and she does not care and wants to . I suspect that the patient has either bipolar disorder schizophrenia and is not taking her medications therefore she is a danger to herself and I am placing her on a Section 12. The patient will be kept in the emergency department until she can be evaluated by our crisis team. The patient refused to let me give her physical exam. At the end of my shift, the patient's care was turned over to my colleague, Dr. Soto. 01/15, she was seen by her primary care doctor Mina: She has history bipolar disorder, recently discharged from [facility] 01/19/2022,admitted for acute john with psychosis. She has history invasive ductal ca of left breast, and diagnosed to have diastolic dysfunction. She states that she is currently being seen by Dr. Trevino at [facility] for her cardiac follow-up, and will be transferred to [facility] for a double mastectomy. Patient states that she needs to be seen by psychiatrist. She was seen and evaluated by our mental health specialist, Rachael, who reviewed her discharge from recent psychiatric admission, and she was reminded that she is already has seen by [facility] a psychiatrist at [place] and has a follow-up appointment. Patient was given the number to contact her psychiatrist to schedule an appointment. She states that she has been feeling well at present time with no complaints of any chest pain, no suicidal ideations. She is trying to apply for disability, has been denied 4 times. Previous history: 1. She tells me, 1 of her teeth broke while biting into something. She had seen the dentist. She may need to have the tooth removed. 2. She had an abnormal mammogram. This was done on ,02/28 and revealed: Left breast has new mass, posterior upper outer quadrant in area of palpable in measuring 1.7 cm. Ultrasound demonstrated: Heterogenous macro lobulated hypoechoic mass posterior upper outer quadrant measurin.8 and 1.4 time 1.7 cm. Left axillary nodes showing normal fatty hilus and normal color. 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 She had her lumpectomy done on 04/29. She tells me that her surgery went well. The incision does appear to be healing, the open area has closed up. No more drainage. She had a follow-up appointment with Dr. Dutta. 3. Cardiac issues: She has had some cardiac issues. She was seen by Dr. Morse who diagnosed diastolic dysfunction. She went to Dr. Trevino in [place] who did right heart catheterization. He mention some muscular dysfunction/autonomic dysfunction. No treatment was suggested. Clinical trial was offered that she declined. She actually had an appointment with Dr. Gruel. Pulmonary Fellow History: Menarche at 10. She still has her regular periods. Family history: Her mom was diagnosed with breast cancer at 38. She lived for 7 years. of metastatic disease. 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 She is not . She has no children. She smokes half a pack a day. She drinks very little alcohol. Review of Systems - Constitutional Reports no additional constitutional complaints, Reports fatigue, Reports lack of energy, Reports malaise, Reports poor appetite, Reports weight loss - Eyes Reports no additional eye complaints - ENT Reports no additional ear, nose, mouth, and throat complaints - Cardiovascular Reports no additional cardiovascular complaints - Respiratory Reports no additional respiratory complaints - Gastrointestinal Reports no additional gastrointestinal complaints - Genitourinary Reports no additional female genitourinary complaints - Musculoskeletal Reports no additional musculoskeletal complaints - Integumentary/Breasts Skin/Breast: Reports no additional skin complaints - Neurologic Reports no additional neurologic complaints, Reports dizziness, Denies headache(s), Reports numbness, Reports paresthesias, Reports weakness - Psychiatric Reports no additional psychiatric complaints - Endocrine Reports no additional endocrine complaints - Hematologic/Lymphatic Reports no additional hematologic/lymphatic complaints - Allergic/Immunologic Reports no additional allergic/immunologic complaints PMFSH Medical History: Medical History (Last Reviewed 04/06/24 @ 13:42 by Helen Espinosa) Diastolic dysfunction Exertional dyspnea Family history of breast cancer gene mutation in first degree relative Hx of cyst of breast Hx of lipoma Impaired fasting glucose Invasive ductal carcinoma of left breast Pancreatic carcinoma metastatic to liver Skin lesion of left upper extremity Functional capacity: independent ambulation Patient : No Family History: Family History (Last Reviewed 04/06/24 @ 13:42 by Helen Espinosa) Mother Breast cancer, Onset Age: 38 Father CAD (coronary artery disease) Hyperlipidemia HTN (hypertension) History of cardiac defibrillator placement Pacemaker Family/Other Lymphoma Paternal Grandmother Dementia Sister Substance use disorder Mental health disorder Surgical History: Surgical History (Last Reviewed 04/06/24 @ 13:42 by Helen Espinosa) Endometriosis History of excision of mass History of lumpectomy of left breast Social History: Social History (Last Reviewed 04/06/24 @ 13:42 by Helen Espinosa) Living Situation History: Household Members: Family Housing: House Are you a primary acute care nurse practitioner to a significant other at home: No Do you presently have visiting nurse or other home services: No Alcohol History Details: 1. How often do you have a drink containing alcohol?: b. Monthly or less 2. How many drinks containing alcohol do you have on a typical day when you are drinking?: a. 1 or 2 Tobacco History: Patient Tobacco Use Status: Never used Tobacco Tobacco use type: Cigarette Cigarette Packs Per Day: 0.5 e-Cigarette/Vaping Use: Never Used Substance Use History: Use of substances other than those prescribed or required for medical reasons : No Substance Use Type: Marijuana Domestic Abuse History: Have you been hit, kicked, punched, or otherwise hurt by someone within the past year? If so, by whom?: No Do you feel safe in your current relationship?: Yes Advance Directives: Advance Directives Date on File: 11/26/21 Homicidal Assessment: Do you have thoughts of harming others: None Do you have a plan to hurt others: No Plan Do you have the means to hurt others: No Nutrition Assessment: Recently lost weight without trying: No Eating poorly because of decreased appetite: No Patient : No Occupation Assessmet: service: No Current occupational status: unemployed Oncology Screenings - ECOG Performance Status ECOG Performance Status: 0 Home Medications and Allergies Current Medications: Current Medications Acetaminophen (Acetaminophen 325 Mg Tablet) 650 mg PO ONCE GIDEON Stop: 05/29/24 23:59 Last Admin: 05/29/24 10:38 Dose: 650 mg Atropine Sulfate (Atropine Sulfate 1 Mg/Ml Vial) 0.5 mg SUBCUT ONCE GIDEON Stop: 05/29/24 23:59 Famotidine (Famotidine/Pf 20 Mg/2 Ml Vial) 20 mg IVPUSH ONCE GIDEON Stop: 05/29/24 23:59 Last Admin: 05/29/24 10:34 Dose: 20 mg Dexamethasone Sodium Phosphate (Decadron) 12 mg in 50 mls @ 200 mls/hr IV ONCE GIDEON Stop: 05/29/24 23:59 Last Infusion: 05/29/24 10:48 Dose: Infused Ondansetron HCl (Zofran) 16 mg in 50 mls @ 200 mls/hr IV ONCE GIDEON Stop: 05/29/24 23:59 Last Infusion: 05/29/24 10:48 Dose: Infused Fosaprepitant 150 mg/ Sodium (Chloride) 150 mls @ 300 mls/hr IV ONCE GIDEON Stop: 05/29/24 23:59 Last Infusion: 05/29/24 11:03 Dose: Infused Fluorouracil 2,900 mg/ Sodium (Chloride) 92 mls @ 2 mls/hr IVCONT ONCE GIDEON Stop: 05/29/24 23:59 Fluorouracil 650 mg/ IV (Miscellaneous Supplies) 13 mls @ 156 mls/hr IVPUSH ONCE GIDEON Stop: 05/29/24 23:59 Leucovorin Calcium 640 mg/ (Dextrose) 282 mls @ 141 mls/hr IV ONCE GIDEON Stop: 05/29/24 23:59 Oxaliplatin 70 mg/ Dextrose 514 mls @ 257 mls/hr IV ONCE GIDEON Stop: 05/29/24 23:59 Last Admin: 05/29/24 12:11 Dose: 257 mls/hr Home Medications ?Medication ?Instructions ?Recorded ?Confirmed ?Type metoprolol tartrate 25 mg tablet 25 mg PO BID 01/14/21 04/06/24 History nitroglycerin 0.4 mg sublingual 0.4 mg sublingual Q5M PRN Chest 01/14/21 04/06/24 History tablet Pain aripiprazole 10 mg tablet (Abilify) 10 mg PO DAILY psychosis 01/16/22 04/06/24 History hydroxyzine HCl 10 mg PO DAILY PRN Anxiety 02/15/23 04/06/24 History multivitamin with minerals-folic 0.4 tab PO DAILY 08/12/23 04/06/24 History acid 0.4 mg tablet (One-A-Day Women's 50 Plus) morphine 30 mg tablet,extended 30 mg PO Q6H 04/25/24 History release (MS Contin) Allergies Allergy/AdvReac Type Severity Reaction Status Date / Time bee pollen [BEE STINGS] Allergy Severe ANAPHYLAXIS Verified 04/06/24 13:42 Penicillins Allergy Intermediate Unknown Verified 04/06/24 13:42 danazol Allergy Unknown hand Verified 04/06/24 13:42 swelling codeine AdvReac Mild Nausea Verified 04/06/24 13:42 omeprazole [From Prilosec] AdvReac Mild Unknown Verified 04/06/24 13:42 sertraline [Zoloft] AdvReac Unknown increasedi Verified 04/06/24 13:42 rritability Exam Vital signs: Vital Signs Temp 97.2 F 05/29/24 09:08 Pulse 115 H 05/29/24 09:08 Resp 18 05/29/24 09:08 BP 85/52 L 05/29/24 09:08 Pulse Ox 99 05/29/24 09:08 O2 Del Method Room Air 05/29/24 09:08 Intake & Output 05/28/24 05/29/24 05/29/24 18:59 06:59 18:59 Intake Total 250 / 250 Balance 250 / 250 Intake: Intake, IV Amount 250 / 250 Fosaprepitant Dimeglumine 150 150 / 150 mg In 0.9 % Sodium Chloride 145 ml @ 300 mls/hr IV ONCE GIDEON Rx #:[id number] Ondansetron HCL/NS 16 mg In 50 50 / 50 ml @ 200 mls/hr IV ONCE GIDEON Rx# :[id number] dexAMETHasone sod phosphate/NS 50 / 50 12 mg In 50 ml @ 200 mls/hr IV ONCE GIDEON Rx#:[id number] Other: Weight 53.8 kg [place] Weight in Grams 92182 Weight 53.8 kg BMI result Body Mass Index 21.7 - Constitutional Present: mild distress - Routine HEENT Exam Head: Present: normocephalic Eye: Present: normal appearance ENT: Present: mucous membranes moist - Routine Neck Exam Present: full ROM - Routine Respiratory Exam Present: CTAB - Routine Cardiovascular Exam Cardiovascular: Present: RRR, S1, S2. Absent: rubs, S3, S4 - Routine Abdominal Exam Present: normal bowel sounds, nontender. Absent: diminished bowel sounds, organomegaly - Routine Rectal Exam Patient deferred: digital exam - Routine Extremities Exam Absent: tenderness - Routine Back/Spine/Pelvis Exam Back/Spine: Present: full ROM - Routine Skin Exam Present: intact, normal turgor - Routine Neurological Exam Present: alert, oriented X3 - Detailed Neurological Exam: Coma Scale Eye Opening: Spontaneous (4) - Routine Psychiatric Exam Present: normal affect Data - Labs CBC & Chem 7: 05/29/24 08:30 05/29/24 08:30 Assessment and Plan Patient Active problem list reviewed?: Yes (1) Breast cancer of upper-outer quadrant of left female breast Status: Resolved Assessment and plan: This is a pleasant 45-year-old lady with recent diagnosis of left-sided breast cancer upper outer quadrant. 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 Question is about neoadjuvant chemotherapy. Since the tumor size is small less than 2 cm., the nodes appear negative on the ultrasound. Would recommend upfront surgical resection for exact staging. She will need chemotherapy since she is triple negative. I discussed the case with Dr. Dutta, as well. She underwent a lumpectomy with sentinel node dissection. Her pathology revealed: Pathology revealed: Invasive ductal carcinoma, high grade, 3 cm, with small satellite nodules x2 approximately 0.1 cm. DCIS nuclear grade 3 with comedonecrosis and calcifications. No lymphovascular invasion. Margins negative for invasive and in-situ ductal carcinoma, however invasive ductal carcinoma is less than 0.1 cm to the posterior margin and approximately 0.1 cm to the medial and lateral margins. Re-excision negative. ER negative/MD negative and HER2 Vonda negative. Three sentinel nodes were negative. No lymphovascular invasion. Margins negative for invasive and in-situ ductal carcinoma, however invasive ductal carcinoma is less than 0.1 cm to the posterior margin and approximately 0.1 cm to the medial and lateral margins. Re-excision negative. ER negative/MD negative and HER2 Vonda negative. Three sentinel nodes were negative. She was deemed a candidate for adjuvant chemotherapy, being triple negative. Choices of chemotherapy included dose dense AC x4, followed by Taxol. However she does have a history of cardiac issues with diastolic dysfunction. In the situation I intended to avoid Adriamycin. She had an echocardiogram at [facility] few weeks prior which showed EF of 55%. Recent data suggest benefit of adjuvant carboplatin and Taxol, especially for triple negative disease. She had a Port-A-Cath placed to facilitate the chemotherapy. She got started on 06/03/21. She completed 6 cycles October,, without incident. Subsequently it appears that she had some mental breakdown. There is some history of bipolar disorder. She was inpatient at [facility] for a couple weeks. In November,, she developed COVID. She was at [facility] then transferred to [facility] for another couple weeks for psychiatric admission. It appears now that she is clinically stable. She had an appointment with debarker operator in [place] on February 25. She mentioned that she was considering a double mastectomy. I advised her to just get post lumpectomy radiation. She is concerned about dermatological toxicity related to radiation. She can at least meet with the radiation therapist and have her questions answered. She was referred for post lumpectomy radiation therapy. She preferred to go to [facility]. She finally completed the radiation 6 months ago. She had a mammogram on 08/19/2022 which was benign. Recently, she has had right upper quadrant/epigastric pain Fortunately the imaging is negative. She could have gastritis/ulcer disease. She was referred to GI, for further evaluation including endoscopy. Appointment was for 12/28. She saw Pb Anaya, her note: 47-year-old female multiple comorbidities referred for index screening colonoscopy presents with persistent acid reflux. Schedule EGD to r/o pud, nonulcer dyspepsia, esophagitis other endoscopic findings to account for his symptoms as well as screening colonoscopy. Discussed procedures, rare risks, need for escorted due to anesthesia, it in cardiac history, unclear will get anesthesia consult. Discuss MiraLax Gatorade split prep, literature given. She will have H pylori test if positive we will treat-otherwise pantoprazole 40 mg which has given her fairly good response in the past. Lately, she has had CP, and PVCs. An appt will be set up with Dr. Madrid, at her request. She had repeat mammogram, on 10 August. Stable postoperative and post treatment related changes to the left breast, with no new findings suspicious for malignancy. No suspicious findings right breast. Recommend continuing yearly mammography of both breasts to establish a 3 year post operative stability of the left breast. l checked a bone density at the same time. This revealed: 1. DIAGNOSIS: Osteopenia based on the lowest T-score value of -1.2 in the femoral neck applying World Health Organization criteria. 2. 10-YEAR FRACTURE RISK PREDICTION, FRAX: Major osteoporotic fracture (clinical spine, forearm, hip or shoulder) 4.0%. Hip fracture 0.4%. Ca 27.29: 20. She was seen in the ED on 08/22. Narrative: Patient with chronic recurrent epigastric pain had an ultrasound done in 12/17 which was negative. Pain is constant epigastric areas patient for last 3 months no relation with food no nausea no vomiting nose weight loss. Patient does have a strong family history of breast cancer. Also history of pancreatic cancer in her cousins but patient's previous CT scan on 12/[address] scan of the abdomen pelvis revealed: 1. Multiple new peripherally enhancing hepatic lesions, most concerning for metastatic disease. 2. A 1.5 cm hypoattenuating soft tissue focus along the cephalad margin of the pancreatic body is new as compared to prior and may correspond to an adjacent enlarged lymph node or a primary pancreatic lesion. 3. A few new pulmonary nodules at the lung bases which are concerning for metastatic disease in the context of the new hepatic lesions. 4. Borderline enlarged retroperitoneal lymph nodes. Database: From 08/22: CBC: WBC 7.8, HGB 14.3, HCT 41.9, PLT 201. CMP: Lytes WNL, BUN 10, LEGAL CASHIER 0.78. LFTs: 0.2/85/37/46. Albumin 4.2. Calcium 9.8. CA 27.29: 71. She had abdominal pain. The oxycodone helped. Liver Mets are likely related to the breast cancer. I proceeded with further evaluation. 08/24 MRI of the abdomen revealed: 1.3 x 1.6 x 1.8 cm mass in the body of the pancreas. No dilatation of the main pancreatic duct. There are numerous peripherally enhancing hepatic masses. There are enlarged gastrohepatic ligament and retroperitoneal lymph nodes. This likely represents metastatic disease. l checked CA 19-9: 18. l proceeded with a PET scan for restaging purposes. She had a biopsy of the liver lesion on 09/06. It revealed: Poorly differentiated carcinoma consistent with pancreatic primary. She saw Dr. Landry Perez at [facility] on 09/20/23. His recommendation was to proceed with FOLFIRINOX based palliative chemotherapy. She underwent chemotherapy teaching. She was started on it on 09/28/23. Here for cycle 6. She has been getting the chemo treatments every 2 weeks. However she would like to go away to [place], so will adjust her schedule accordingly. She had a CT chest and abdomen for re-staging on November 26. This revealed: IMPRESSION: 1. Significantly diminished size and number of lung nodules. 2. Significant reduction in size of liver metastases. 3. Stable left adrenal gland nodule. 4. Right adnexal cyst. 5. Splenomegaly. 6. Port-A-Cath in place. This is great news. I forwarded the results to Dr. Perez. Ca 19/9: 12. She had tolerated the treatment well up till now but, her neuropathy has bothered her with this last cycle. She actually called a week ago, that she wanted to cancel her treatments and take a break. She was seen in the ED yesterday with right upper quadrant abdominal pain. Database from 02/20: CBC: WBC 13.1, HGB 13.2, HCT 38, MCV 94.1, PLT 116. Lytes WNL, glucose 139, BUN 8, LEGAL CASHIER 0.74. LFTs: 0.4/140/30/27. CA 19/9:31. CT scan of the chest abdomen pelvis from 02/20 revealed: 1. Hypoattenuating region adjacent to the distal portion of the left IJ port catheter, suspicious for venous thrombus within the lower internal jugular vein and brachiocephalic vein. 2. Multiple hepatic lesions are redemonstrated. The largest of these measures up to approximately 2.2 cm in diameter, previously 2.9 on 11/26/2023. Any of the remaining hepatic lesions appear more distinct than on the prior examination, though some differences could potentially be due to the differences in post contrast timing and direct comparison of size is limited. 3. No significant change in appearance of several bilateral lung nodules since 12/17/2023. 4. Stable appearance of left adrenal nodule. She was given a dose of Lovenox in the ED. I proceeded with an ultrasound of the left upper extremity, this revealed: No DVT demonstrated in the left upper extremity Since there is a discrepancy in the results from CT scan and ultrasound, I have requested input from Dr. Hernandez to clarify the issue. Will then decide if she needs to continue the Lovenox. I faxed over the imaging results to Dr. Landry Perez. She had elected to take a break from treatment over the summer. She has not been treated since February 14. Latey she has had increasing abdominal pain, decreased appetite and weight loss. I proceeded with imaging studies to restage her. CT chest abdomen pelvis were done on 04/24 and revealed: 1. Increased conspicuity and size of a lesion centered within the body of the pancreas suspicious for primary pancreatic adenocarcinoma. The lesion partially encases but does not obstruct the adjacent common hepatic artery. 2. Innumerable hepatic metastases increased in size and number compared with 02/21/2024. 3. Multiple pulmonary nodules consistent with metastatic disease increased in size and number compared with 02/21/2024. 4. Newly identified lymphadenopathy. Newly identified left paratracheal, celiac and abdominal/pelvic pericaval and periaortic lymphadenopathy. 5. Unchanged 1.0 cm left adrenal nodule compared with 02/21/2024. 6. The previously noted thrombus adjacent to a catheter within the left internal jugular vein noted on the 02/21/2024 examination is no longer identified and may have resolved. Unfortunately she has had significant disease progression. She decided to resume her treatment. She had removal of the Port-A-Cath and had a new one inserted on 04/25. She started on 05/01, she is here for her 3rd cycle. She had some nausea and vomiting after the last treatment. She is doing better now. She would like to continue the regimen. PLAN: I had increased the MS Contin to 60 b.i.d. to manage her increasing pain intensity, but it is causing her to be lethargic. Will lower the dose to 30 mg TID/BID as needed. She can take oxycodone for breakthrough as needed. I advised her to take nutritional supplements ensure plus 3 times a day to help keep her weight up during the treatment. She will continue on the Eliquis. She will return in a couple of weeks for her next treatment and a follow-up visit Will give her another 2 months of therapy and then restage her with a scan. Hopefully she will exhibit a good response. All her and her sister's questions were answered to her satisfaction. Thank you, CC: Dr. Dutta. Dr. Enriquez. - Time Spent With Patient Time Spent with Patient (in minutes): 30
[2024-05-29] MEDS: Leucovorin Calcium 640 MG in Dextrose 5 % 250 ML 141 MG IV (14:18)
--- NOTE | 2024-05-29 14:55 | MHC.HEMONC ---
Pt here for C13D1 Folfiri. Pt states she is fatigued, has intermittent nausea, continues with numbness in feet, legs and hands. Dr Torres into see pt. Port accessed with blood return noted. Lab results reviewed, Dr Torres notified of platelet level-okay to receive chemotherapy today-will hold Irinotecan today. Pre medicated with tylenol, dexamethasone, pepcid, emend, zofran. Leucovorin, oxaliplatin and 5 FU given as ordered-tolerated well. Home chemo pump attached as ordered. Discharge packet given with next appointment scheduled. Pt to return on Wednesday for chemo pump take down and possible Udenyca injection. Dsicharged to front of hospital via wheelchair .Instructed to call with any questions or concerns.
[2024-05-29] MEDS: oxyCODONE HCl Immed Release 5 MG TABLET PO (15:21)
[2024-05-29 15:27] VITALS: BP 108/76; PULSE 94; RESP 17; O2SAT 97
[2024-05-29] MEDS: fluorouraciL 650 MG in Syringe 0 ML 156 MG IVPUSH (15:57)
[2024-05-31 13:00] VITALS: BP 99/58; PULSE 115; TEMP 36.8
[2024-05-31] MEDS: 0.9 % Sodium Chloride 250 ML 999 ML IV (13:30)
[2024-05-31] MEDS: 0.9 % Sodium Chloride 500 ML IV (13:30)
[2024-05-31] MEDS: Heparin Sodium,Porcine Flush 500 UNIT/5 ML SYRINGE IVFLUSH (13:38)
--- NOTE | 2024-05-31 16:24 | MHC.HEMONC ---
chemo pump d/c port flushed with heparin. pt received 250ml NS IVF. pt report mouth starting to hurt salt water wash suggested magic mouth will be ordered. pt also report increase in bilat feet swelling and heaviness in leg. pt will keep legs elevated. guilherme held today, ok pre dr ribera, wbc 13.4
--- NOTE | 2024-06-02 13:04 | MHC.HEMONC ---
Per Pharmacy, pt does not have coverage for Compunding for Miracle Mouthwash. Dr Torres asked to order viscous lidocaine and antifungal.
--- NOTE | 2024-06-06 14:27 | HO.HEMONCPA ---
PA PENDING FOR LIDOCAINE 5% PATCH PA Rx #: [id number]
[2024-06-12 08:59] VITALS: BP 112/63; PULSE 114; RESP 18; TEMP 36.9; O2SAT 93; BMI 22.4
[2024-06-12 09:18] LABS: Basophils Percent Auto 0.1 % (0-2); Hematocrit 29.1 % (37.0-47.0); Hemoglobin 9.3 g/dl (12.0-16.0); Imm Gran Abs Auto 0.09 X10*3/uL (0.00-0.03); Imm Gran Pct Auto 1.1 % (0.0-0.4); Lymphocytes Absolute Auto 0.6 X10*3/uL (1.2-4.9); Lymphocytes Percent Auto 7.9 % (20-40); MANUAL DIFF FLAG NO; Mean Corpuscular Hemoglobin 26.8 pg (27.0-33.0); Mean Corpuscular Volume 83.9 fL (80.0-98.0); Mean Platelet Volume 11.3 fL (9.4-12.3); Monocytes Absolute Auto 1.3 X10*3/uL (0.1-1.2); Monocytes Percent Auto 16.6 % (2-11); Neutrophils Absolute Auto 5.9 x10*3/uL (2.0-8.3); Neutrophils Percent Auto 74.3 % (45-73); Red Blood Count 3.47 X10*6/uL (4.20-5.50); Red Cell Distribution Width 25.8 % (11.0-16.0); White Blood Count 7.9 X10*3/uL (4.8-10.8)
[2024-06-12 09:21] LABS: Platelet Count 62 X10*3/uL (160-400)
[2024-06-12 09:39] LABS: Alanine Aminotransferase 21 U/L (0-31); Albumin Level 2.7 g/dL (3.5-5.0); Alkaline Phosphatase 313 U/L (39-117); Anion Gap 16 (12-20); Aspartate Amino Transferase 109 U/L (5-31); Blood Urea Nitrogen 20 mg/dL (9-16); Calcium 8.6 mg/dL (8.4-10.2); Carbon Dioxide 24 mmol/L (22-29); Chloride 98 mmol/L (96-108); Creatinine Clr Calc Pharmacy 61.1; Estimated Glomerular Filt Rate > 60; Glucose Random 144 mg/dL (60-115); Potassium 3.9 mmol/L (3.3-5.1); Sodium 134 mmol/L (135-145); Total Protein 5.9 g/dL (6.5-8.0)
[2024-06-12 09:59] LABS: Bilirubin Total 0.7 mg/dL (0.0-1.0); HBS Num1 > 1000.00 mIU/mL (0-7.99); HBc Num1 0.07 S/CO (0.00-0.79); HBsAGNum1 0.26 S/CO (0.00-0.99); Hepatitis B Core Antibody Nonreactive (Nonreactive); Hepatitis B Surface Antigen Negative (Negative); ~Hepatitis B Surface Antibody REACTIVE (Nonreactive)
--- NOTE | 2024-06-12 11:39 | MHC.HEMONC ---
treatment held today plt dropping 62 today. per pharm cut off is 50, however that along with her other side effects on palli care the plan going forward treatment will be q3w. pt c/o sleeping all day only to wake up for 2 meals a day also report pain is worst will try fentanyl patch this evening. pt report stopping blood thinner for 4 days now due to bleeding hemorrhoids, will restart at 2.5mg
--- NOTE | 2024-06-12 11:46 | MHC.HEMONCSW ---
This conventional mortgage underwriter met briefly with patient to discuss her feelings about being unable to continue treatment today. Patient was talking with chaplain Loyd, and this conventional mortgage underwriter stopped in for approximately five minutes. At patient's request, this conventional mortgage underwriter will follow up with patient during her next treatment appointment on 06/19.
--- NOTE | 2024-06-13 17:36 | MHC.HEMONC ---
Pt called, said that she had switched to Fentanyl patch 25 mcg/72 hr, as of yesterday, and stopped taking her MS Contin 60 mg PO Q8H, after discussing w/ Dr. Torres about the heavily sedating side-effects of the MS contin. Unfortunately, pt says that she is now in 8-10/10 pain, and this nurse replied that her fentanyl dose may not be adequate for her pain needs. Pt has been taking oxycodone IR a/o for breakthrough pain w/ only minimal effect. Nurse f/u w/ Dr. Dodd, as Dr. Torres is out until , informed pt she should resume the MS contin 60 mg Q8H and remove the fentanyl patch, then f/u w/ Dr. Torres this , confirmed w/ pt and Dr. Dodd it is safe to immediately take the MS contin now as she removes the fentanyl patch, as it is slow release. Pt added that she had almost fallen while coming into her home yesterday, and she has had trouble ambulating around, says she needs more and more help at home, says her sister lives w/ her and takes care of her, but now her father is being d/c'd from hospital, refused rehab, and though he'll be living w/ his girlfriend, she's concerned her sister won't be able to manage care for both of them safely. Nurse replied that the ER must be used as a back up if they realize they have insufficient resources to care for everyone, and if she feels unsafe, she must go back to the ER. Nurse to f/u w/ Dr. Torres on and respond to pt w/ recommendations.
--- NOTE | 2024-06-15 14:55 | MHC.HEMONC ---
Triage - Pt called. She has questions regarding her pain medications. Pt requested a call back at [phone]. Ms sent to Dr Torres
--- NOTE | 2024-06-16 15:26 | MHC.HEMONC ---
Triage - Pt called she would like to speak with you. Can you please call pt back when you get a chance? Pt has been calling for three days now. Call back#[phone]. Msg sent to Dr Torres
--- NOTE | 2024-06-19 09:35 | MHC.HEMONC ---
Triagre- Pt called and LVM. Pt stated that fell and would like to cancel today's appt. Dr Torres spoke w/the pt.
--- NOTE | 2024-06-21 13:43 | MHC.HEMONCSW ---
This telegraphic typewriter installer met with Marah in her room as she has been admitted inpatient due to ongoing issues related to cancer and chemotherapy. Nurse navigator Tanja was also present. Marah reported that she was comfortable due to pain medication which had been administered and a procedure to remove build up of fluid in her abdomen. Marah presented as being tired and somewhat incoherent due to the morphine and oxycodone given. However, she was able to report that she had her sister and a friend coming to visit her, and had met with recovery room nurse Joe. This telegraphic typewriter installer and nurse Tanja discussed some possibilities of in-home care with patient, as well as possibilities of rehabilitation for patient upon discharge. This telegraphic typewriter installer will follow up with Marah to visit her again.
--- NOTE | 2024-06-23 16:50 | MHC.HEMONCSW ---
This marketing underwriter met with Marah in her room upstairs, accompanied by nurse navigator Tanja. Patient was resting in bed. She has decided to go on hospice care upon discharge from the hospital, and it apprehensive, though she expressed that it is the right choice for her. Patient is eager to go home to her bed and her dog, who she misses. This marketing underwriter met with patient for 15 minutes.
== END 2024-06-30 11:46 | disposition home or self-care (01) ==
LOC: HO.ONC 08:00
PROVIDERS: PCP Internal Medicine; Referring Provider Surgery; Visit Provider Internal Medicine Medical Oncology
DX: C25.9 Malignant neoplasm of pancreas, unspecified (principal); C50.412 Malignant neoplasm of upper-outer quadrant of left female breast; Z17.1 Estrogen receptor negative status [ER-]; C78.7 Secondary malignant neoplasm of liver and intrahepatic bile duct; M85.80 Other specified disorders of bone density and structure, unspecified site; G62.9 Polyneuropathy, unspecified; F17.210 Nicotine dependence, cigarettes, uncomplicated; Z92.21 Personal history of antineoplastic chemotherapy; Z92.3 Personal history of irradiation; Z51.11 Encounter for antineoplastic chemotherapy
CPT/HCPCS: 0241U; 36415; 36591; 36593; 80053; 82306; 83735; 85007; 85025; 85027; 86300; 86301; 86704; 86706; 87340; 96360; 96361; 96366; 96367; 96368; 96372; 96375; 96409; 96411; 96413; 96415; 96416; 96417; 96523; 99204; 99212; 99213; 99214; J0461; J0640; J1100; J1200; J1453; J1642; J1650; J2405; J2506; J2997; J9045; J9190; J9206; J9263; J9267; Q5111

== ENCOUNTER 2024-06-19 18:13 | Inpatient (IN) | payer OTHER, SELFPAY ==
[2024-06-19] VITALS (7 sets, daily range): BP systolic 100–116; BP diastolic 56–76; PULSE 114–120; RESP 18–24; TEMP 36.4–36.6; O2SAT 95–100; BMI 21.9
--- NOTE | ~2024-06-19 | CT_ITS ---
EXAMINATION: CT ABDOMEN AND PELVIS WITHOUT CONTRAST CLINICAL INFORMATION: Pancreatic cancer with metastasis. COMPARISON: CT abdomen pelvis 04/24/2024. TECHNIQUE: Multidetector volumetric imaging was performed from the superior aspect of the liver through the pubic symphysis. Sagittal and coronal reformatted images were obtained on the technologist's workstation. This CT examination was performed using dose optimization techniques as appropriate, variously including the following: *Automated exposure control *Adjustment of mA and/or kV according to patient size (this includes techniques or standardized protocols for targeted exams where dose is matched to indication/reason for exam; i.e. extremities or head) *Use of iterative reconstruction technique DLP: 599 mGy-cm FINDINGS: LUNG BASES: There are multiple lung nodules seen in both lung bases. Heart size is normal. There is small left pleural effusion. LIVER, GALLBLADDER, AND BILIARY TREE: The liver is enlarged with diffusely heterogeneous likely representing multiple nodules. There is diffuse perihepatic ascites. No intrahepatic ductal dilatation seen. The gallbladder is not visualized. PANCREAS: Unremarkable. SPLEEN: Unremarkable. ADRENAL GLANDS: Unremarkable. KIDNEYS AND URETERS: The kidneys are normal in size, shape, and attenuation. No hydronephrosis, hydroureter, or calculi seen. No perinephric stranding. BLADDER: Unremarkable. GASTROINTESTINAL TRACT: Scattered stool and gas seen throughout the colon without distention. The small bowel loops are normal caliber. No free air seen. A large amount of free fluid. The stomach is nondistended. Appendix is not visualized. There are multiple mesenteric nodules and lymphadenopathy with omental caking. ABDOMINAL WALL: No significant hernia is appreciated. LYMPH NODES: There are bilateral para-aortic lymph nodes. VASCULAR: Unremarkable. PELVIC VISCERA: Unremarkable. OSSEOUS STRUCTURES: No aggressive lytic or sclerotic process seen. CT/CT abdomen pelvis wo IV con IMPRESSION: 1. Diffuse heterogeneous liver likely hepatic metastasis with hepatomegaly. 2. Large amount of ascites. Consider long-term drainage catheter for ascites. 3. Multiple peritoneal nodules, lymph nodes and bilateral para-aortic lymphadenopathy. 4. Multiple lung nodules in both lung bases with small left pleural effusion. Fleischner guidelines were followed. Electronically signed by: Socrates Griffith MD 06/19/2024 10:35 PM EDT
--- NOTE | ~2024-06-19 | US_ITS ---
Ultrasound paracentesis History: Ascites. Pancreatic cancer. Risks and benefits and possible complications were discussed with the patient and consent form was signed. A safe pocket of ascitic fluid was identified using ultrasound guidance, and the overlying skin was marked. The abdomen prepped and draped in sterile fashion. 1% lidocaine was used as a local anesthetic. Using ultrasound guidance, a 5 fr catheter was placed into the ascitic pocket. 2.9 liters of cloudy yellow fluid was removed passively. The catheter was then removed. A few account retention representative images from before and after the examination were obtained. The procedure was performed by Martin Hay PA-C and supervised by Dr. Tee. US/US paracentesis abd w/image Impression: Ultrasound-guided paracentesis as described above. No immediate complications Electronically signed by: Aubrey Tee MD 06/29/2024 12:31 PM EDT
--- NOTE | ~2024-06-19 | US_ITS ---
EXAMINATION: US ABDOMEN LIMITED CLINICAL INFORMATION: Cancer, shortness of breath, ascites. COMPARISON: Ultrasound paracentesis 06/20/2024, 2.9 L of ascites was drained TECHNIQUE: Real-time imaging of all 4 quadrants of the abdomen and the main portal vein FINDINGS: Ascites is seen in all 4 quadrants of the abdomen. There is a moderate amount of ascites. The main portal vein appears patent. US/US abdomen limited IMPRESSION: Moderate amount ascites within the abdomen. Patent portal vein. Electronically signed by: Alissa Lamar MD 06/22/2024 04:37 PM EDT
--- NOTE | 2024-06-19 18:21 | ED_ITS ---
HPI - General Adult General Chief complaint: Weakness Stated complaint: WEAKNESS PANCREATIC CANCER Time Seen by Provider: 06/19/24 18:20 Source: patient Mode of arrival: EMS Limitations: no limitations History of Present Illness HPI narrative: Patient' with diagnosis of metastatic pancreatic cancer 08/16, history of breast cancer, diastolic heart failure comes here for increased weakness with poor oral intake missed her chemotherapyx2 due to weakness and thrombocytopenia 62k and poor oral intake Related Data Home Medications ?Medication ?Instructions ?Recorded ?Confirmed metoprolol tartrate 25 mg tablet 25 mg PO BID 01/14/21 04/06/24 nitroglycerin 0.4 mg sublingual 0.4 mg sublingual Q5M PRN Chest 01/14/21 04/06/24 tablet Pain aripiprazole 10 mg tablet (Abilify) 10 mg PO DAILY psychosis 01/16/22 04/06/24 hydroxyzine HCl 10 mg PO DAILY PRN Anxiety 02/15/23 04/06/24 multivitamin with minerals-folic 0.4 tab PO DAILY 08/12/23 04/06/24 acid 0.4 mg tablet (One-A-Day Women's 50 Plus) morphine 30 mg tablet,extended 30 mg PO Q6H 04/25/24 release (MS Contin) Previous Rx's ?Medication ?Instructions ?Recorded blood-glucose meter (FreeStyle #1 ea 12/25/22 [place] Lite kit) nicotine 14 mg/24 hr daily 1 patch transdermal Q24H #30 ea 08/24/23 transdermal patch (Nicoderm CQ) dexamethasone 4 mg tablet 4 mg PO BID #100 tabs 09/28/23 loperamide 2 mg tablet (Imodium 2 mg PO Q4H PRN Diarrhea #60 tabs 11/09/23 A-D) blood sugar diagnostic (FreeStyle #200 ea 11/14/23 Lite Strips) albuterol sulfate 90 mcg/actuation 1 inh inhalation QID #2 grams 02/01/24 aerosol inhaler (ProAir HFA) oxycodone 5 mg tablet 5 mg PO Q4H PRN Breakthrough Pain, 02/01/24 Moderate #60 tabs diclofenac sodium 3 % topical gel 1 appl topical BID #45 grams 02/14/24 gabapentin 300 mg capsule 300 mg PO BEDTIME #30 caps 02/14/24 oxycodone 10 mg tablet 10 mg PO Q8H PRN pain #10 tabs 02/22/24 polyethylene glycol 3350 17 17 g PO DAILY PRN laxative effect 02/22/24 gram/dose oral powder (Miralax) #238 grams pregabalin 25 mg capsule (Lyrica) 25 mg PO BID #60 caps 02/23/24 pantoprazole 40 mg tablet,delayed 40 mg PO DAILY 90 days #90 tabs 03/02/24 release oxycodone 5 mg tablet 5 mg PO Q4H PRN Breakthrough Pain, 03/30/24 Mild #80 tabs sennosides 8.6 mg tablet (Senokot) 8.6 mg PO BID #60 tabs 04/06/24 oxycodone 10 mg tablet 10 mg PO Q8H PRN Breakthrough 04/11/24 Pain, Moderate #60 tabs fentanyl 25 mcg/hr transdermal 1 patch transdermal Q72H #5 ea 04/24/24 patch Shower Chair #1 ea 05/01/24 cane #1 ea 05/01/24 food supplemt, lactose-reduced 1 ea PO TID #90 ea 05/01/24 0.07 gram-1.5 kcal/mL oral liquid (Ensure Plus) morphine 60 mg tablet,extended 60 mg PO Q8H #90 tabs 05/01/24 release (MS Contin) oxycodone 10 mg tablet 10 mg PO Q6H PRN Breakthrough 05/01/24 Pain, Moderate #80 tabs potassium chloride 20 mEq 20 meq PO DAILY #60 tabs 05/16/24 tablet,extended release barium sulfate 2 % (w/v) oral 450 ml PO TID #900 mL 05/29/24 suspension (Readi-Cat 2) duloxetine 20 mg capsule,delayed 20 mg PO BID #60 caps 05/29/24 release morphine 30 mg tablet,extended 30 mg PO Q12H #60 tabs 05/29/24 release (MS Contin) Magic Mouthwash 10 ml PO QID #240 mL 06/01/24 Diphen/Lido/Antacid 1:1:1 240 mL suspension lidocaine 5 % topical patch 2 patch topical DAILY #10 ea 06/05/24 (Lidoderm) lidocaine HCl 2 % mucosal solution 1 appl mucous membrane QID #300 mL 06/05/24 (Lidocaine Viscous) nystatin 100,000 unit/mL oral 100,000 unit buccal QID #300 mL 06/05/24 suspension ondansetron 8 mg disintegrating 8 mg PO Q8H #50 tabs 06/05/24 tablet apixaban 2.5 mg tablet (Eliquis) 2.5 mg PO BID #60 tabs 06/12/24 fentanyl 50 mcg/hr transdermal 1 patch transdermal Q72H #5 ea 06/16/24 patch Allergies Allergy/AdvReac Type Severity Reaction Status Date / Time bee pollen [BEE STINGS] Allergy Severe ANAPHYLAXIS Verified 06/19/24 18:31 Penicillins Allergy Intermediate Unknown Verified 06/19/24 18:31 danazol Allergy Unknown hand Verified 06/19/24 18:31 swelling codeine AdvReac Mild Nausea Verified 06/19/24 18:31 omeprazole [From Prilosec] AdvReac Mild Unknown Verified 06/19/24 18:31 sertraline [Zoloft] AdvReac Unknown increasedi Verified 06/19/24 18:31 rritability Review of Systems 2 Review of Systems: Yes all other systems are reviewed and are negative PMFSH Past Medical History Medical History Pancreatic carcinoma metastatic to liver Impaired fasting glucose Skin lesion of left upper extremity Diastolic dysfunction Hx of lipoma Hx of cyst of breast Invasive ductal carcinoma of left breast Family history of breast cancer gene mutation in first degree relative Exertional dyspnea Surgical History History of lumpectomy of left breast Endometriosis History of excision of mass Family History Family History Mother Breast cancer, Onset Age: 38 Father CAD (coronary artery disease) Hyperlipidemia HTN (hypertension) History of cardiac defibrillator placement Pacemaker Family/Other Lymphoma Paternal Grandmother Dementia Sister Substance use disorder Mental health disorder Social History Social History Household Members: Family Housing: House Are you a primary healthcare specialist to a significant other at home: No Do you presently have visiting nurse or other home services: Yes Alcohol intake: current Alcohol intake frequency: does not drink Patient Tobacco Use Status: Current everyday Tobacco user Tobacco use type: Cigarette Cigarette Packs Per Day: 1 Cigarettes Per Day: 20.0 e-Cigarette/Vaping Use: Never Used Second Hand Smoke Exposure: Yes Substance Use Type: Marijuana Advance Directives Date on File: 11/26/21 service: No Current occupational status: unemployed Cognitive needs: No Hearing needs: No Vision needs: No Physical Exam ED Vital Signs: Vital Signs - 24 hr 06/19/24 18:29 06/19/24 19:23 06/19/24 20:12 Temperature 97.7 F 97.8 F Pulse Rate 116 H 115 H Respiratory Rate 18 24 H 22 H Blood Pressure 113/76 111/71 Pulse Oximetry 100 95 Oxygen Delivery Method Room Air Room Air 06/19/24 22:08 Temperature 97.9 F Pulse Rate 115 H Respiratory Rate 22 H Blood Pressure 100/56 L Pulse Oximetry 96 Oxygen Delivery Method Room Air BMI result Body Mass Index 21.9 Appearance: Alert. Oriented X3. No acute distress. Emaciated Eyes: PERRLA, No Nystagmus ENT: Pharynx normal. Oral Mucosa moist Neck: Normal inspection. Neck supple. CVS: Normal heart rate and rhythm. Pulses normal. Respiratory: No respiratory distress. Equal air entry bilateral, no wheezing/rales/rhonchi Abdomen: Soft distended free fluid+ mild discomfort no rebound tenderness or guarding Bowel sounds are present, no mass palpable, no CVA tenderness Skin: Skin warm and dry. Normal skin color. Normal skin turgor. Extremities: 2+ lower extremity edema. No calf tenderness Neuro: Oriented X 3. No motor deficit. Medications Administered Generic Name Dose Route Start Last Admin Trade Name Freq PRN Reason Stop Dose Admin Acetaminophen 650 mg 06/19/24 23:07 06/20/24 01:12 Acetaminophen 325 Mg Tablet PO 650 mg Q6H PRN Administration Pain, Mild (Pain Scale 1-3), fever or headache Ceftriaxone Sodium 2 gm/ 50 mls @ 100 mls/hr 06/19/24 23:00 06/20/24 00:27 Sodium Chloride IV Infused Q24H GIDEON Infusion Morphine Sulfate 4 mg 06/19/24 23:07 06/20/24 02:00 Morphine Sulfate 4 Mg/Ml Cartridge IVPUSH 4 mg Q4H PRN Administration Pain, Severe (Pain Scale 7-10) Protocol Sodium Chloride 3 ml 06/20/24 00:00 06/20/24 02:04 0.9 % Sodium Chloride Flush 3 Ml Syringe IVFLUSH 3 ml QSHIFT GIDEON Administration Discontinued Medications Generic Name Dose Route Start Last Admin Trade Name Gemini PRN Reason Stop Dose Admin Sodium Chloride 1,000 mls @ 999 mls/hr 06/19/24 18:34 06/19/24 22:50 Ns IV 06/19/24 19:34 Infused .Q1H1M ONE Infusion Morphine Sulfate 4 mg 06/19/24 19:02 06/19/24 20:12 Morphine Sulfate 4 Mg/Ml Cartridge IVPUSH 06/19/24 19:03 4 mg ONCE ONE Administration Protocol Nicotine 21 mg 06/19/24 19:03 06/19/24 20:11 Nicotine 21 Mg Patch.Td24 TRANSDERMA 06/19/24 19:04 21 mg ONCE ONE Administration Ondansetron HCl 4 mg 06/19/24 19:02 06/19/24 20:11 Ondansetron Hcl 4 Mg/2 Ml Vial IVPUSH 06/19/24 19:03 4 mg ONCE ONE Administration Medical Decision Making Medical Decision Making [facility] Narrative: Patient with terminal pancreatic cancer failure to thrive with UTI will admit patient for IV hydration and antibiotics plan for ascites tap in the a.m. to rule out spontaneous bacterial peritonitis clinically she does not have significant tenderness Differential Diagnosis Differential Diagnoses: The differential diagnosis associated with the presentation includes UTI/pancreatic cancer/malnutrition Admission/Observation Consideration of admission/observation: Escalation of care including admission/observation considered Consult Healthcare Provider Management of the patient was discussed with: Hospitalist Lab Data [facility] Lab Attestation statement: I reviewed the patient's lab results. 06/19/24 19:10 06/19/24 19:10 Labs: Lab Results 06/19/24 06/19/24 Range/Units 19:10 22:13 WBC 16.6 H (4.8-10.8) X10*3/uL RBC 3.89 L (4.20-5.50) X10*6/uL Hgb 10.6 L (12.0-16.0) g/dl Hct 31.6 L (37.0-47.0) % MCV 81.2 (80.0-98.0) fL MCH 27.2 (27.0-33.0) pg MCHC 33.5 (31.0-35.0) g/dl RDW 26.5 H (11.0-16.0) % Plt Count 43 L D (160-400) X10*3/uL MPV Not Reportable Immature Gran % (Auto) Cancelled Neut % (Auto) Cancelled Lymph % (Auto) Cancelled Edwards % (Auto) Cancelled Eos % (Auto) Cancelled Baso % (Auto) Cancelled Lymph # (Auto) Cancelled Edwards # (Auto) Cancelled Eos # (Auto) Cancelled Baso # (Auto) Cancelled Abs Immat Gran (auto) Cancelled Absolute Neuts (auto) Cancelled Absolute Nucleated RBC 0.000 (0.0-0.012) X10*3/uL Nucleated RBC % (auto) 0.0 (0.0-0.2) /100WBC Neutrophils % (Manual) 85 H (45-73) % Band Neutrophils % 1 L (3-5) % Lymphocytes % (Manual) 4 L (20-40) % Monocytes % (Manual) 7 (2-11) % Myelocytes % 3 % Abs Neuts (Manual) 14.3 H (2.0-8.3) X10*3/uL Lymphocytes # (Manual) 0.7 L (1.2-4.9) X10*3/uL Monocytes # (Manual) 1.2 (0.1-1.2) X10*3/uL Myelocytes # 0.5 X10*/uL Toxic Vacuolation PRESENT Platelet Estimate DECREASED (NORMAL) Plt Morphology Comment NORMAL RBC Morphology NOTED Schistocytes 1+ (0-2) /OIF Sodium 128 L (135-145) mmol/L Potassium 4.3 (3.3-5.1) mmol/L Chloride 94 L (96-108) mmol/L Carbon Dioxide 21 L (22-29) mmol/L Anion Gap 17 (12-20) BUN 31 H (9-16) mg/dL Creatinine 1.30 (0.5-1.4) mg/dL Estim Creat Clear Calc 40.9 Estimated GFR 43 Random Glucose 94 (60-115) mg/dL Calcium 8.2 L (8.4-10.2) mg/dL Total Bilirubin 1.2 H (0.0-1.0) mg/dL AST 222 H (5-31) U/L ALT 35 H (0-31) U/L Alkaline Phosphatase 629 H (39-117) U/L Total Protein 5.7 L (6.5-8.0) g/dL Albumin 2.5 L (3.5-5.0) g/dL Urine Color Dark Yellow Urine Appearance Cloudy Urine pH 5.5 (5.0-9.0) Ur Specific [place] 1.025 (1.005-1.025) Urine Protein 30 (1+) H (Neg-Trace) mg/dL Urine Glucose (UA) Negative (Negative) mg/dL Urine Ketones 15 (Negative) mg/dL Urine Blood Negative (Negative) Urine Nitrite Negative (Negative) Ur Leukocyte Esterase Small (1+) H (Negative) Urine RBC 0-2 (0-2) /HPF Urine WBC 11-20 H (0-5) /HPF Ur Squamous Epith Cells >20 (0-2) /HPF Urine Bacteria 1+ (None Seen) Hyaline Casts 0-2 (0-2) /LPF COVID-19 (JAYDA) Negative (Negative) COVID-19 Clin Com See Note Radiology Impression Discussion of test interpretation with radiology: I have reviewed the radiologist's reading. Radiologist Impression: CT/CT abdomen pelvis wo IV con IMPRESSION: 1. Diffuse heterogeneous liver likely hepatic metastasis with hepatomegaly. 2. Large amount of ascites. Consider long-term drainage catheter for ascites. 3. Multiple peritoneal nodules, lymph nodes and bilateral para-aortic lymphadenopathy. 4. Multiple lung nodules in both lung bases with small left pleural effusion. Discharge Plan Discharge Clinical Impression: Urinary tract infection, Generalized weakness Patient Disposition: Admitted As Inpatient Interventions: Admission Worksheet (ED) Last Done: 06/20/24 00:06 Discharge Date/Time: 06/20/24 01:00
--- NOTE | 2024-06-19 18:47 | ECG_ITS ---
Test Reason : WEAKNESS Blood Pressure : / mmHG Vent. Rate : 116 BPM Atrial Rate : 116 BPM P-R Int : 126 ms QRS Dur : 064 ms QT Int : 324 ms P-R-T Axes : 043 021 031 degrees QTc Int : 450 ms Sinus tachycardia Abnormal ECG When compared with ECG of 28-DEC-2014 19:11, Vent. rate has increased BY 40 BPM Referred By: Conrado Duong Electronically Signed By:HENRY DIGGS
--- NOTE | 2024-06-19 18:47 | MHC.CM.ED ---
Addendum entered by Cherri Oliva 06/19/24 21:34: HCP completed. HCP #1/sister Malinda Rivera ([phone]) and HCP#2/cousin Bladimir Draper ([phone]). Copies given to patient. Uploaded into [employer] and [facility]. Original Note: CM received a telephone call from TERESA Hinson in [facility]. This patient is active with Dr. Torres. Pt has been unable to receive chemo the past 2 visits due to her labs. She does not have a HCP or a MOLST. She may need hospice in the future. She is requesting that CM address the HCP. CM will speak with provider regarding the MOLST. Pt work up is pending.
[2024-06-19 19:17] LABS: Hemoglobin 10.6 g/dl (12.0-16.0)
[2024-06-19 19:19] LABS: Hematocrit 31.6 % (37.0-47.0); Mean Corpuscular HGB Conc 33.5 g/dl (31.0-35.0); Mean Corpuscular Hemoglobin 27.2 pg (27.0-33.0); Mean Corpuscular Volume 81.2 fL (80.0-98.0); Red Blood Count 3.89 X10*6/uL (4.20-5.50); Red Cell Distribution Width 26.5 % (11.0-16.0); White Blood Count 16.6 X10*3/uL (4.8-10.8)
[2024-06-19 19:20] LABS: PLT ABN DIST 1; Platelet Count 43 X10*3/uL (160-400)
[2024-06-19 19:29] LABS: COVID-19 Test Negative (Negative); IDNOW Serial# 58CA691E
[2024-06-19 19:34] LABS: Alanine Aminotransferase 35 U/L (0-31); Albumin Level 2.5 g/dL (3.5-5.0); Alkaline Phosphatase 629 U/L (39-117); Anion Gap 17 (12-20); Aspartate Amino Transferase 222 U/L (5-31); Bilirubin Total 1.2 mg/dL (0.0-1.0); Blood Urea Nitrogen 31 mg/dL (9-16); Calcium 8.2 mg/dL (8.4-10.2); Carbon Dioxide 21 mmol/L (22-29); Chloride 94 mmol/L (96-108); Creatinine Clr Calc Pharmacy 40.9; Estimated Glomerular Filt Rate 43; Glucose Random 94 mg/dL (60-115); Potassium 4.3 mmol/L (3.3-5.1); Sodium 128 mmol/L (135-145); Total Protein 5.7 g/dL (6.5-8.0)
--- NOTE | 2024-06-19 19:36 | MHC.EDTECH ---
Patient was biba from home ,vitals taken ,Patient was change into hospital attire ,and hooked up to panel monitor ,ekg taken and was read by Provider ,blood drawn and sent to lab ,Patient belonings list done ,Call brewer within Pt reach .
[2024-06-19 19:55] LABS: Band Neutrophils Percent 1 % (3-5); Lymphocytes Absolute Manual 0.7 X10*3/uL (1.2-4.9); Lymphocytes Percent Manual 4 % (20-40); Monocytes Absolute Manual 1.2 X10*3/uL (0.1-1.2); Monocytes Percent Manual 7 % (2-11); Myelocytes Absolute 0.5 X10*/uL; Myelocytes Percent 3 %; Neutrophils Absolute Manual 14.3 X10*3/uL (2.0-8.3); Neutrophils Percent Manual 85 % (45-73)
[2024-06-19 19:56] LABS: Toxic Vacuolation PRESENT
[2024-06-19 19:57] LABS: Schistocytes 1+ (0-2) /OIF
[2024-06-19 19:58] LABS: Platelet Estimate DECREASED (NORMAL); Platelet Morphology Comment NORMAL
[2024-06-19 20:01] LABS: RBC Morphology NOTED
[2024-06-19] MEDS: ondansetron HCL 4 MG/2 ML VIAL IVPUSH (20:11)
[2024-06-19] MEDS: Nicotine 21 MG PATCH.TD24 TRANSDERMA (20:11)
[2024-06-19] MEDS: Morphine Sulfate 4 MG/ML CARTRIDGE IVPUSH ×2 (20:12→23:26)
[2024-06-19] MEDS: 0.9 % Sodium Chloride 1,000 ML 999 ML IV (20:19)
--- NOTE | 2024-06-19 20:58 | MHC.EDTECH ---
This tech ambulated with Pt to and from bathroom. Urine sample provided. OK to eat/drink per Dr Campos. Pt given ice water, gingerale and crackers. Call brewer within reach.
[2024-06-19 22:22] LABS: Appearance Urine Cloudy; Color Urine Dark Yellow; Glucose Urine UA Negative (Negative); Leukocyte Esterase Urine Small (1+) (Negative); Nitrite Urine Negative (Negative); PH 5.5 (5.0-9.0); Specific Gravity - Urine 1.025 (1.005-1.025); UMIC TRIGGER UACC YES; Urine Blood Negative (Negative); Urine Ketones 15 mg/dL (Negative); Urine Protein 30 (1+) mg/dL (Neg-Trace)
[2024-06-19 22:31] LABS: Bacteria Urine 1+ (None Seen); Hyaline Casts Urine 0-2 /LPF (0-2); RBC Urine 0-2 /HPF (0-2); Squamous Epithelial Cell Urine >20 /HPF (0-2); UACC Culture Trigger YES
--- NOTE | 2024-06-19 22:47 | PHA.MEDREC ---
Pharmacy Consult ? Medication Reconciliation Pharmacy has completed the medication reconciliation. Went to speak to patient and found patient friend at bedside. When I started taking to the patient she got very confused, disorientated and was not all there. When I asked about the patient Morphine the patient states she just started it back up and is on a lower dose then she was usually on, her friend asked if it was 60mg of it and the patient states no it wasn't that, it was 60mg of Methadone so we will confirm that in the Am and patient became hysteric after that and started crying and saying something about her sister Malinda who was with her when she was being transported in but the patient states she is already sleeping so we will follow up in the Am with the patient sister to confirm her medications.
--- NOTE | 2024-06-19 22:56 | PHA.MEDREC ---
Addendum entered by Zaire Dupont, [facility] 06/20/24 11:54: MED REC CHECKED BY [facility] Addendum entered by Shonda Wyatt 06/20/24 11:08: Following up from yesterday. I tried to call patients sister Malinda again with no answer. Went to speak to patient to try to confirm med list. Patient was alert and orientated, however she seemed annoyed she had to go over medications with me. Patient was able to confirm medications. Patient states she in no longer taking Diclofenac sodium gel, Gabapentin, Hydroxyzine, Lidocaine viscous oral, Lidocaine patch. Patient says she takes Morphine 60 mg tid , however last claim was Morphine 30 mg bid. Left on what claim states, Fentanyl is 50 mg Q72h, patient had two 25 mg patches upon arrival to [facility] . The attending nurse took off the two patches and the MD continued order for One 25 mg patch. patient states she is on oxycodone Q6H prn breakthrough pain. last fill date 05-29-24 for 20 days. Patient says she hasn't started Dexamethasone 4 mg bid on chemo days. patient thinks is not sure if she is on Duloxetine 20 mg bid, last fill date 05-29-24 for 30 days. So, left on med list. Original Note: Pharmacy Consult ? Medication Reconciliation Went to speak to patient and found patient friend at bedside. When I started taking to the patient she got very confused, disorientated and was not all there. When I asked about the patient Morphine the patient states she just started it back up and is on a lower dose then she was usually on, her friend asked if it was 60mg of it and the patient states no it wasn't that, it was 60mg of Methadone so we will confirm that in the Am and patient became hysteric after that and started crying and saying something about her sister Malinda who was with her when she was being transported in but the patient states she is already sleeping so we will follow up in the Am with the patient sister to confirm her medications.
--- NOTE | 2024-06-19 23:10 | P.HPHOSP_ITS ---
History of Present Illness Date of Service: 06/19/24 Chief Complaint: Weakness This is a 48-year-old female with pertinent history of breast cancer status post mastectomy, metastatic pancreatic cancer diagnosed in Jul 2023 on chemotherapy, tobacco use disorder, history of PE on Eliquis, gastroesophageal reflux disease, congestive heart failure with preserved ejection fraction, peripheral neuropathy who presents to the emergency department for evaluation of weakness. Patient states that for the last few days she has been feeling weak. Also with early satiety and poor p.o. intake. She has noticed that her belly is swollen and endorses easy fatigability. Patient missed her last chemotherapy session due to thrombocytopenia and weakness. Also admits change in color and odor of urine with burning micturition. Admits chills but no documented fever, no dyspnea, chest pain, palpitations. Does have loose stools due to chemotherapy. In the emergency department, imaging with large volume ascites. WBC found to be elevated Review of Systems 2 Constitutional: Constitutional: Reports fatigue, Reports malaise, Reports poor appetite, Reports weakness and Reports weight loss Cardiovascular: Cardiovascular: Reports no additional cardiovascular complaints Respiratory: Respiratory: Reports no additional respiratory complaints Gastrointestinal: Gastrointestinal: Reports loose stools Genitourinary: Genitourinary: Reports dysuria, Reports urinary incontinence and Reports urinary urgency Neurologic: Reports weakness Endocrine: Endocrine: Reports fatigue PMFSH Medical History Pancreatic carcinoma metastatic to liver Impaired fasting glucose Skin lesion of left upper extremity Diastolic dysfunction Hx of lipoma Hx of cyst of breast Invasive ductal carcinoma of left breast Family history of breast cancer gene mutation in first degree relative Exertional dyspnea Family History Mother Breast cancer, Onset Age: 38 Father CAD (coronary artery disease) Hyperlipidemia HTN (hypertension) History of cardiac defibrillator placement Pacemaker Family/Other Lymphoma Paternal Grandmother Dementia Sister Substance use disorder Mental health disorder Surgical History History of lumpectomy of left breast Endometriosis History of excision of mass Social History Household Members: Family Housing: House Are you a primary residential child care counselor to a significant other at home: No Do you presently have visiting nurse or other home services: No Alcohol intake: current Alcohol intake frequency: does not drink Patient Tobacco Use Status: Never used Tobacco Tobacco use type: Cigarette Cigarette Packs Per Day: 0.5 Cigarettes Per Day: 10 Smoked in Last 30 Days: Yes e-Cigarette/Vaping Use: Never Used Use of substances other than those prescribed or required for medical reasons: Yes Substance Use Type: Marijuana Advance Directives: Yes Advance Directives on File: Yes Advance Directives Date on File: 11/26/21 Do you have a plan to hurt others: No Plan Patient : No service: No Current occupational status: unemployed Cognitive needs: No Hearing needs: No Vision needs: No Meds Allergies Allergy/AdvReac Type Severity Reaction Status Date / Time bee pollen [BEE STINGS] Allergy Severe ANAPHYLAXIS Verified 06/19/24 18:31 Penicillins Allergy Intermediate Unknown Verified 06/19/24 18:31 danazol Allergy Unknown hand Verified 06/19/24 18:31 swelling codeine AdvReac Mild Nausea Verified 06/19/24 18:31 omeprazole [From Prilosec] AdvReac Mild Unknown Verified 06/19/24 18:31 sertraline [Zoloft] AdvReac Unknown increasedi Verified 06/19/24 18:31 rritability Home Medications ?Medication ?Instructions ?Recorded ?Confirmed ?Last Taken ?Type metoprolol tartrate 25 mg tablet 25 mg PO BID 01/14/21 04/06/24 11/06/21 08:00 History nitroglycerin 0.4 mg sublingual 0.4 mg sublingual Q5M PRN Chest 01/14/21 04/06/24 Unknown History tablet Pain aripiprazole 10 mg tablet (Abilify) 10 mg PO DAILY psychosis 01/16/22 04/06/24 Unknown History hydroxyzine HCl 10 mg PO DAILY PRN Anxiety 02/15/23 04/06/24 Unknown History multivitamin with minerals-folic 0.4 tab PO DAILY 08/12/23 04/06/24 Unknown History acid 0.4 mg tablet (One-A-Day Women's 50 Plus) morphine 30 mg tablet,extended 30 mg PO Q6H 04/25/24 04/25/24 History release (MS Contin) Physical Exam 2 Vital Signs and Narrative: Vital Signs: Last Vital Signs Temp 97.9 F 06/19/24 22:08 Pulse 115 H 06/19/24 22:08 Resp 22 H 06/19/24 22:08 BP 100/56 L 06/19/24 22:08 Pulse Ox 96 06/19/24 22:08 O2 Del Method Room Air 06/19/24 22:08 BMI result Body Mass Index 21.9 Middle-aged female lying in bed in no distress Neck supple, no JVD Regular rate and rhythm, S1-S2 heard Regular breath sounds bilaterally, no wheezing or crackles appreciated Abdomen distended with fluid thrill, nontender, no guarding, no rigidity Patient is awake, alert and oriented to self, place, time and person ; no focal motor deficit Psych: Normal mood Bilateral pedal edema Results Labs 06/19/24 19:10 06/19/24 19:10 Labs: Laboratory Results - last 24 hr 06/19/24 06/19/24 19:10 22:13 MCV 81.2 MCH 27.2 MCHC 33.5 RDW 26.5 H Plt Count 43 L D MPV Not Reportable Immature Gran % (Auto) Cancelled Neut % (Auto) Cancelled Lymph % (Auto) Cancelled Sully % (Auto) Cancelled Eos % (Auto) Cancelled Baso % (Auto) Cancelled Lymph # (Auto) Cancelled Sully # (Auto) Cancelled Eos # (Auto) Cancelled Baso # (Auto) Cancelled Abs Immat Gran (auto) Cancelled Absolute Neuts (auto) Cancelled Absolute Nucleated RBC 0.000 Nucleated RBC % (auto) 0.0 Neutrophils % (Manual) 85 H Band Neutrophils % 1 L Lymphocytes % (Manual) 4 L Monocytes % (Manual) 7 Myelocytes % 3 Abs Neuts (Manual) 14.3 H Lymphocytes # (Manual) 0.7 L Monocytes # (Manual) 1.2 Myelocytes # 0.5 Toxic Vacuolation PRESENT Platelet Estimate DECREASED Plt Morphology Comment NORMAL RBC Morphology NOTED Schistocytes 1+ (0-2) Anion Gap 17 Estim Creat Clear Calc 40.9 Estimated GFR 43 Random Glucose 94 Calcium 8.2 L Total Bilirubin 1.2 H AST 222 H ALT 35 H Alkaline Phosphatase 629 H Total Protein 5.7 L Albumin 2.5 L Urine Color Dark Yellow Urine Appearance Cloudy Urine pH 5.5 Ur Specific [place] 1.025 Urine Protein 30 (1+) H Urine Glucose (UA) Negative Urine Ketones 15 Urine Blood Negative Urine Nitrite Negative Ur Leukocyte Esterase Small (1+) H Urine RBC 0-2 Urine WBC 11-20 H Ur Squamous Epith Cells >20 Urine Bacteria 1+ Hyaline Casts 0-2 COVID-19 (JAYDA) Negative COVID-19 Clin Com See Note Imaging Radiologist's Impressions: Impressions Abdomen/Pelvis CT 06/19/24 21:13 IMPRESSION: 1. Diffuse heterogeneous liver likely hepatic metastasis with hepatomegaly. 2. Large amount of ascites. Consider long-term drainage catheter for ascites. 3. Multiple peritoneal nodules, lymph nodes and bilateral para-aortic lymphadenopathy. 4. Multiple lung nodules in both lung bases with small left pleural effusion. Fleischner guidelines were followed. Electronically signed by: Socrates Griffith MD 06/19/2024 10:35 PM EDT RP Assessment and Plan (1) Pancreatic carcinoma metastatic to liver: Status: Acute (2) UTI (urinary tract infection): Status: Acute (3) Generalized weakness: Status: Acute Plan This is a 48-year-old female with pertinent history of breast cancer status post mastectomy, metastatic pancreatic cancer diagnosed in Jul 2023 on chemotherapy, tobacco use disorder, history of PE on Eliquis, gastroesophageal reflux disease, congestive heart failure with preserved ejection fraction, peripheral neuropathy who presents to the emergency department for evaluation of weakness. #. Sepsis due to acute UTI: Will admit patient and initiate empiric IV ceftriaxone. Resuscitated with IV crystalloids. Lactic acid and blood culture obtained. Follow urine culture #. Large volume ascites: due to underlying pancreatic cancer. therapeutic and diagnostic paracentesis in a.m.. Ascitic fluid studies pending #. Generalized weakness: Progressive debility in the setting of metastatic pancreatic cancer. Physical therapy to evaluate and treat #. Thrombocytopenia in the setting of chemotherapy. No active bleeding. Continue to monitor #. Metastatic pancreatic cancer: IV opioids p.r.n. for analgesia. Outpatient Heme-Onc follow-up #. Elevated liver enzymes in the setting of above #. Hyponatremia: Serum osmolality, urine osmolality and urine sodium pending. Monitor sodium with crystalloid resuscitation. #. History of PE: Continue Eliquis despite thrombocytopenia due to elevated thrombotic risk. Monitor for bleeding as plt count less than 50,000 #. Peripheral neuropathy: On Lyrica DVT prophylaxis: Eliquis Med rec pending DNR/DNI. Discussed with patient at bedside Admit as inpatient and will require two night minimum hospital stay for IV antibiotics, paracentesis, monitoring of serum sodium and platelets (as above), which is not possible in a lesser acute setting. Quality Stroke Does the patient have a stroke diagnosis?: No VTE Prior VTE?: No VTE Risk Level:: Medical - moderate - high VTE Device Contraindication: Treatment Not Indicated VTE Drug Contraindication: N/A - Med Ordered
[2024-06-19] MEDS: cefTRIAXone sodium 2 GM in 0.9 % Sodium Chloride 50 ML IV (23:51)
[2024-06-19 23:58] LABS: Lactic Acid 1.7 mmol/L (0.5-2.0)
[2024-06-20] VITALS (7 sets, daily range): BP systolic 112–126; BP diastolic 61–78; PULSE 85–117; RESP 16–19; TEMP 36.1–36.5; O2SAT 95–99; BMI 24.4
[2024-06-20 00:26] LABS: Osmolality, Serum 268 mosm/kg (281-305)
[2024-06-20] MEDS: Acetaminophen 325 MG TABLET 650 MG PO (01:12)
[2024-06-20] MEDS: Morphine Sulfate 4 MG/ML CARTRIDGE IVPUSH ×4 (02:00→18:47)
[2024-06-20] MEDS: 0.9 % Sodium Chloride Flush 3 ML SYRINGE IVFLUSH ×4 (02:04→20:05)
[2024-06-20] MEDS: fentaNYL 25 MCG PATCH.TD72 TRANSDERMA (02:25)
[2024-06-20 06:19] LABS: INTERNATIONAL NORM RATIO 1.2 (0.9-1.1); Prothrombin Time 14.1 SEC (11.1-13.3)
--- NOTE | 2024-06-20 06:22 | PC.NURSE ---
Late entry: Upon admission assessment, this RN found two fentanyl patches to pt's LUQ. Per pt, each patch was 25mcg and was due to be removed 8/27 AM. Pt arrived to ED with the two fentanyl patches on. This RN removed the two fentanyl patches and notified the nursing stock supervisor and MD Dwyer. Per Pt's home medications rec, takes fentanyl for pain d/t pancreatic cancer. MD Dwyer placed new order for fentanyl patch, see MAR. This RN administered and applied new fentanyl patch to RUQ at 02:26, due to be changed in 72HR. Will continue to monitor pt's pain. Plan of care ongoing.
[2024-06-20 06:25] LABS: Alanine Aminotransferase 38 U/L (0-31); Albumin Level 2.4 g/dL (3.5-5.0); Alkaline Phosphatase 615 U/L (39-117); Anion Gap 19 (12-20); Aspartate Amino Transferase 231 U/L (5-31); Bilirubin Total 0.9 mg/dL (0.0-1.0); Blood Urea Nitrogen 32 mg/dL (9-16); Calcium 8.6 mg/dL (8.4-10.2); Carbon Dioxide 18 mmol/L (22-29); Chloride 95 mmol/L (96-108); Creatinine Clr Calc Pharmacy 43.6; Estimated Glomerular Filt Rate 43; Glucose Random 79 mg/dL (60-115); Lactate Dehydrogenase 2490 U/L (122-220); Potassium 4.3 mmol/L (3.3-5.1); Sodium 128 mmol/L (135-145); Total Protein 5.6 g/dL (6.5-8.0)
[2024-06-20 06:28] LABS: Hematocrit 30.7 % (37.0-47.0); Hemoglobin 10.2 g/dl (12.0-16.0); Mean Corpuscular HGB Conc 33.2 g/dl (31.0-35.0); Mean Corpuscular Hemoglobin 27.2 pg (27.0-33.0); Mean Corpuscular Volume 81.9 fL (80.0-98.0); Red Blood Count 3.75 X10*6/uL (4.20-5.50); Red Cell Distribution Width 26.4 % (11.0-16.0)
[2024-06-20 06:29] LABS: Platelet Count 40 X10*3/uL (160-400)
[2024-06-20 06:55] LABS: Band Neutrophils Percent 2 % (3-5); Eosinophils Absolute Manual 0.3 X10*3/uL (0.0-0.4); Eosinophils Percent Manual 2 % (0-4); Lymphocytes Absolute Manual 0.5 X10*3/uL (1.2-4.9); Lymphocytes Percent Manual 3 % (20-40); Metamyelocytes Absolute 0.6 X10*3/uL; Metamyelocytes Percent 4 %; Monocytes Absolute Manual 0.5 X10*3/uL (0.1-1.2); Monocytes Percent Manual 3 % (2-11); Myelocytes Absolute 0.5 X10*/uL; Myelocytes Percent 3 %; Neutrophils Absolute Manual 12.6 X10*3/uL (2.0-8.3); Neutrophils Percent Manual 82 % (45-73); Promyelocytes Absolute 0.2 X10*3/uL; Promyelocytes Percent 1 %
[2024-06-20 06:58] LABS: Microcytosis 1+ (5-14) /OIF; Polychromasia 1+ (0-2) /OIF; RBC Morphology NOTED
[2024-06-20 06:59] LABS: Platelet Estimate DECREASED (NORMAL); Platelet Morphology Comment NORMAL
[2024-06-20] MEDS: oxyCODONE HCl Immed Release 5 MG TABLET 10 MG PO ×3 (09:45→20:09)
--- NOTE | 2024-06-20 09:50 | MHC.CM.PN ---
IMM DELIVERED PT LIVES WITH FAMILY. PT USES [facility] FOR MOBILITY. PT ATTENDS CHEMO AT [facility] [place] [address] MCCARTHY. +HCP ON FILE AND VERIFIED. PCP DR. JOSHI. DP: P.T. WILL SEE PT TO DETERMINE DISPOSITION. PT IS OPEN TO HOME SERVICES OR SNF DEPENDING ON REC. REFERRAL SENT TO [facility] FOR ?PALLIATIVE HOME CARE, PT IS AGREEABLE TO THIS. FAMILY WILL TRANSPORT. CM WILL CONTINUE TO FOLLOW FOR DC NEEDS/PLAN.
[2024-06-20] MEDS: Lidocaine HCl 1 % MPF 5 ML VIAL SUBCUT (12:29)
[2024-06-20 12:42] LABS: MN% 69.6 %; PMN% 30.4 %; RBC Peritoneal Fluid 0.004 X10*6/uL; WBC Peritoneal Fluid 1.154 X10*3/uL
[2024-06-20 14:17] LABS: Lymphocyte Peritoneal Fl 38 %; Neutrophils Peritoneal Fluid 37 %
[2024-06-20 14:18] LABS: BF Shift QC OK YES; Eosinophils Peritoneal Fl 1 %; Man Diluent Bkgrd OK YES; Monocytes Peritoneal Fl 10 %; Other Peritioneal Fl 14 %
--- NOTE | 2024-06-20 14:31 | HO.PM.IMPN ---
Subjective Subjective Date of Service: 06/21/24 Interval History: Complaining of abdominal pain, tolerating diet, nausea and vomiting resolved, no fevers, chronic chills, denies lightheadedness, no dizziness, urinary burning resolved, some discomfort with urination. Review of Systems All other system reviewed and are negative. Physical Exam Vital Signs: Vital Signs: Last Vital Signs Temp 97.0 F 06/20/24 12:37 Pulse 112 H 06/20/24 12:37 Resp 16 06/20/24 12:37 BP 119/78 06/20/24 12:37 Pulse Ox 99 06/20/24 12:37 O2 Del Method Room Air 06/20/24 12:37 BMI result Body Mass Index 24.4 Const: Other: General sitting comfortably in no acute distress. Anicteric sclera Neck no JVD. CVS regular rate rhythm, Respiratory lungs clear to auscultation, no respiratory distress, no wheeze, no rhonchi. Gastrointestinal abdomen distended, mid abdominal tenderness, bowel sounds audible, no guarding , no rigidity. Extremities bilateral pitting edema. Neuro speech clear, nonfocal. Skin no rash Psych appropriate affect Objective Data Active Medications Acetaminophen (Acetaminophen 325 Mg Tablet) 650 mg PO Q6H PRN PRN Reason: Pain, Mild (Pain Scale 1-3), fever or headache Last Admin: 06/20/24 01:12 Dose: 650 mg Documented By: CITLALLI Comments: per pt request Calcium Carbonate (Calcium Carbonate 750 Mg Tab.Chew) 750 mg PO Q4H PRN PRN Reason: Heartburn Fentanyl (Fentanyl 25 Mcg Patch.Td72) 25 mcg TRANSDERMA Q72H [facility] Last Admin: 06/20/24 02:25 Dose: 25 mcg Documented By: CITLALLI Ceftriaxone Sodium 2 gm/ (Sodium Chloride) 50 mls @ 100 mls/hr IV Q24H [facility] Last Infusion: 06/20/24 00:27 Dose: Infused Documented By: SERRANX Magnesium Hydroxide (Milk Of Magnesia 30 Ml Oral.Susp) 30 ml PO DAILY PRN PRN Reason: Constipation Melatonin (Melatonin 3 Mg Tablet) 6 mg PO BEDTIME PRN PRN Reason: Insomnia Morphine Sulfate (Morphine Sulfate 4 Mg/Ml Cartridge) 4 mg IVPUSH Q4H PRN; Protocol PRN Reason: Pain, Severe (Pain Scale 7-10) Last Admin: 06/20/24 12:44 Dose: 4 mg Documented By: JARAD Ondansetron HCl (Ondansetron Hcl 4 Mg/2 Ml Vial) 4 mg IVPUSH Q8H PRN PRN Reason: Nausea and Vomiting Oxycodone HCl (Oxycodone Hcl Immed Release 5 Mg Tablet) 10 mg PO Q4H PRN PRN Reason: Pain, Severe (Pain Scale 7-10) Last Admin: 06/20/24 09:45 Dose: 10 mg Documented By: JARAD Sodium Chloride (0.9 % Sodium Chloride Flush 3 Ml Syringe) [address] [facility] Last Admin: 06/20/24 07:39 Dose: 3 ml Documented By: JARAD Labs 06/21/24 07:44 06/20/24 06:00 Labs: Laboratory Results - last 24 hr 06/19/24 06/19/24 06/19/24 19:10 22:13 23:39 MCV 81.2 MCH 27.2 MCHC 33.5 RDW 26.5 H Plt Count 43 L D MPV Not Reportable Immature Gran % (Auto) Cancelled Neut % (Auto) Cancelled Lymph % (Auto) Cancelled [place] % (Auto) Cancelled Eos % (Auto) Cancelled Baso % (Auto) Cancelled Lymph # (Auto) Cancelled [place] # (Auto) Cancelled Eos # (Auto) Cancelled Baso # (Auto) Cancelled Abs Immat Gran (auto) Cancelled Absolute Neuts (auto) Cancelled Absolute Nucleated RBC 0.000 Nucleated RBC % (auto) 0.0 Neutrophils % (Manual) 85 H Band Neutrophils % 1 L Lymphocytes % (Manual) 4 L Monocytes % (Manual) 7 Eosinophils % (Manual) Metamyelocytes % Myelocytes % 3 Promyelocytes % Abs Neuts (Manual) 14.3 H Lymphocytes # (Manual) 0.7 L Monocytes # (Manual) 1.2 Eosinophils # (Manual) Metamyelocytes # Myelocytes # 0.5 Promyelocytes # Toxic Vacuolation PRESENT Platelet Estimate DECREASED Plt Morphology Comment NORMAL RBC Morphology NOTED Polychromasia Microcytosis Schistocytes 1+ (0-2) PT INR Anion Gap 17 Estim Creat Clear Calc 40.9 Estimated GFR 43 Random Glucose 94 Osmolality Lactic Acid 1.7 Calcium 8.2 L Total Bilirubin 1.2 H AST 222 H ALT 35 H Alkaline Phosphatase 629 H Lactate Dehydrogenase Total Protein 5.7 L Albumin 2.5 L Urine Color Dark Yellow Urine Appearance Cloudy Urine pH 5.5 Ur Specific [place] 1.025 Urine Protein 30 (1+) H Urine Glucose (UA) Negative Urine Ketones 15 Urine Blood Negative Urine Nitrite Negative Ur Leukocyte Esterase Small (1+) H Urine RBC 0-2 Urine WBC 11-20 H Ur Squamous Epith Cells >20 Urine Bacteria 1+ Hyaline Casts 0-2 Peritoneal WBC Peritoneal RBC Periton Neutrophils Periton Lymphocytes Peritoneal Monocytes Peritoneal Eosinophils Peritoneal Other Cells COVID-19 (JAYDA) Negative COVID-19 Clin Com See Note 06/19/24 06/20/24 06/20/24 23:51 06:00 12:04 MCV 81.9 MCH 27.2 MCHC 33.2 RDW 26.4 H Plt Count 40 L MPV TNP Immature Gran % (Auto) Cancelled Neut % (Auto) Cancelled Lymph % (Auto) Cancelled [place] % (Auto) Cancelled Eos % (Auto) Cancelled Baso % (Auto) Cancelled Lymph # (Auto) Cancelled [place] # (Auto) Cancelled Eos # (Auto) Cancelled Baso # (Auto) Cancelled Abs Immat Gran (auto) Cancelled Absolute Neuts (auto) Cancelled Absolute Nucleated RBC 0.000 Nucleated RBC % (auto) 0.0 Neutrophils % (Manual) 82 H Band Neutrophils % 2 L Lymphocytes % (Manual) 3 L Monocytes % (Manual) 3 Eosinophils % (Manual) 2 Metamyelocytes % 4 Myelocytes % 3 Promyelocytes % 1 Abs Neuts (Manual) 12.6 H Lymphocytes # (Manual) 0.5 L Monocytes # (Manual) 0.5 Eosinophils # (Manual) 0.3 Metamyelocytes # 0.6 Myelocytes # 0.5 Promyelocytes # 0.2 Toxic Vacuolation Platelet Estimate DECREASED Plt Morphology Comment NORMAL RBC Morphology NOTED Polychromasia 1+ (0-2) Microcytosis 1+ (5-14) Schistocytes PT 14.1 H INR 1.2 H Anion Gap 19 Estim Creat Clear Calc 43.6 Estimated GFR 43 Random Glucose 79 Osmolality 268 L Lactic Acid Calcium 8.6 Total Bilirubin 0.9 AST 231 H ALT 38 H Alkaline Phosphatase 615 H Lactate Dehydrogenase 2490 H Total Protein 5.6 L Albumin 2.4 L Urine Color Urine Appearance Urine pH Ur Specific [place] Urine Protein Urine Glucose (UA) Urine Ketones Urine Blood Urine Nitrite Ur Leukocyte Esterase Urine RBC Urine WBC Ur Squamous Epith Cells Urine Bacteria Hyaline Casts Peritoneal WBC 1.154 Peritoneal RBC 0.004 Periton Neutrophils 37 Periton Lymphocytes 38 Peritoneal Monocytes 10 Peritoneal Eosinophils 1 Peritoneal Other Cells 14 COVID-19 (JAYDA) COVID-19 Clin Com Microbiology Microbiology Results: Microbiology 06/20/24 12:04 Gram Stain - Final Peritoneal Fluid 06/19/24 22:32 Urine Culture - Preliminary Urine clean catch - Clean Catch Midstream No growth to date. Assessment and Plan (1) Generalized weakness: Status: Acute (2) UTI (urinary tract infection): Status: Acute (3) Pancreatic carcinoma metastatic to liver: Status: Acute Plan 48-year-old female with pertinent history of breast cancer status post mastectomy, metastatic pancreatic cancer diagnosed in Jul 2023 on chemotherapy, tobacco use disorder, history of PE on Eliquis, gastroesophageal reflux disease, congestive heart failure with preserved ejection fraction, peripheral neuropathy who presents to the emergency department for evaluation of weakness. #. Sepsis due to acute UTI: Continue empiric IV ceftriaxone started on 06/19, follow urine and blood cultures, lactic acid 1.7, follow CBC #. Abdominal pain likely due to ascites related to underlying pancreatic cancer. s/p therapeutic and diagnostic paracentesis , follow fluid studies. #. Generalized weakness: Seen by Physical therapy they recommend home with services for bed mobility, transfer and gait training and therapeutic exercises. #. Thrombocytopenia in the setting of chemotherapy, platelets gradually trending down, 40,000, follow CBC, hold platelet transfusion, monitor for bleeding. #. Metastatic pancreatic cancer: CT abdomen and pelvis showed diffuse heterogeneous liver likely hepatic metastasis, multiple peritoneal nodules, lymph nodes and bilateral para-aortic lymphadenopathy, multiple lung nodules with small left pleural effusion , elevated LDH 2490, consult Oncology. #. Elevated liver enzymes in the setting of above, avoid hepatotoxins. #. Hyponatremia: Serum osmolality 268, urine osmolality and urine sodium uncollected, treat with normal saline and follow. #. History of PE: Continue Eliquis despite thrombocytopenia due to elevated thrombotic risk. Monitor for bleeding as plt count less than 50,000 #. Peripheral neuropathy: On Lyrica DVT prophylaxis: Eliquis DNR/DNI. Patient will require continued inpatient hospitalization for IV antibiotics, monitoring for urine and blood cultures, paracentesis, monitoring of serum sodium and platelets (as above), which is not possible in a lesser acute setting. Quality Stroke Does the patient have a stroke diagnosis?: No VTE Prior VTE?: No VTE Risk Level:: Medical - moderate - high VTE Device Contraindication: Treatment Not Indicated VTE Drug Contraindication: N/A - Med Ordered
--- NOTE | 2024-06-20 15:34 | MHC.CLN ---
NUTRITION DIET=REGULAR. ENSURE TID PROVIDES ADDITIONAL 1050 KCALS, 60 G PROTEIN. SIGNIFICANT WEIGHT LOSS X 6 MONTHS. DX PANCREATIC CANCER WITH METS TO LIVER. FAIR PO INTAKE. FOLLOW FOR INTAKE AND DIET TOLERANCE. SEE CLINICAL NUTRITION ASSESSMENT 06/20/24.
--- NOTE | 2024-06-20 16:01 | P.CNHO_ITS ---
Subjective - Subjective Chief complaint: Consult for: Metastatic pancreatic carcinoma. Patient: known to practice within the last 3 years Consult date: 06/20/24 Requesting Physician: Chiki. Primary Care Provider: Carlyn Enriquez MD Family Provider: Mina. Medical Summary: DIAGNOSIS: Metastatic pancreatic carcinoma with lung and liver metastases. HPI - Consult Narrative Reason for consult: Consult for: Metastatic pancreatic carcinoma. Narrative: Marah Rivera is a 48 year old lady, with history of breast cancer status post mastectomy, metastatic pancreatic cancer diagnosed in Jul 2023 on chemotherapy. She presented to the ER for evaluation of generalized weakness. Over the last few days she has been feeling extremely fatigued. She has had low oral intake and early satiety. She has noticed that her belly is swollen. She was due for chemotherapy last week, but was noted to be thrombocytopenic with platelets of 62. She has noted a change in the color of urine with burning micturition. She has had chills but no fever. She denies chest pain, shortness of breath nor palpitations. Does have loose stools due to chemotherapy. In the emergency department, imaging with large volume ascites. WBC found to be elevated, at 15. CT scan of the abdomen from 06/19 revealed: 1. Diffuse heterogeneous liver likely hepatic metastasis with hepatomegaly. 2. Large amount of ascites. Consider long-term drainage catheter for ascites. 3. Multiple peritoneal nodules, lymph nodes and bilateral para-aortic lymphadenopathy. 4. Multiple lung nodules in both lung bases with small left pleural effusion. Review of Systems 2 Constitutional: Constitutional: Reports fatigue, Reports malaise, Reports poor appetite, Reports weakness and Reports weight loss Cardiovascular: Cardiovascular: Reports no additional cardiovascular complaints Respiratory: Respiratory: Reports no additional respiratory complaints Gastrointestinal: Gastrointestinal: Reports loose stools Genitourinary: Genitourinary: Reports dysuria, Reports urinary incontinence and Reports urinary urgency Neurologic: Reports weakness Endocrine: Endocrine: Reports fatigue PMFSH Medical History: Tobacco use disorder, History of PE on Eliquis, gastroesophageal reflux disease, Congestive heart failure with preserved ejection fraction, Peripheral neuropathy Pancreatic carcinoma metastatic to liver Impaired fasting glucose Skin lesion of left upper extremity Diastolic dysfunction Hx of lipoma Hx of cyst of breast Invasive ductal carcinoma of left breast Family history of breast cancer gene mutation in first degree relative Exertional dyspnea Family History Mother Breast cancer, Onset Age: 38 Father CAD (coronary artery disease) Hyperlipidemia HTN (hypertension) History of cardiac defibrillator placement Review of Systems - Constitutional Reports system reviewed and no additional complaints, except as documented, Reports anorexia, Reports chills, Reports fatigue, Reports lack of energy, Reports malaise, Reports poor appetite, Reports weight loss, Denies fever(s) - Eyes Reports system reviewed and no additional complaints, except as documented - ENT Reports system reviewed and no additional complaints, except as documented - Cardiovascular Reports system reviewed and no additional complaints, except as documented - Respiratory Reports no additional respiratory complaints - Gastrointestinal Reports system reviewed and no additional complaints, except as documented - Genitourinary Reports no additional female genitourinary complaints - Musculoskeletal Reports system reviewed and no additional complaints, except as documented - Integumentary/Breasts Skin/Breast: Reports no additional skin complaints - Neurologic Reports weakness - Psychiatric Reports system reviewed and no additional complaints, except as documented - Endocrine Reports no additional endocrine complaints - Hematologic/Lymphatic Reports system reviewed and no additional complaints, except as documented - Allergic/Immunologic Reports system reviewed and no additional complaints, except as documented Oncology Screenings - ECOG Performance Status ECOG Performance Status: 2 [facility] Medical History: Medical History (Last Reviewed 06/19/24 @ 23:14 by Calin Dwyer MD) Diastolic dysfunction Exertional dyspnea Family history of breast cancer gene mutation in first degree relative Hx of cyst of breast Hx of lipoma Impaired fasting glucose Invasive ductal carcinoma of left breast Pancreatic carcinoma metastatic to liver Skin lesion of left upper extremity Functional capacity: wheelchair bound Patient : No Family History: Family History (Last Reviewed 06/19/24 @ 23:14 by Calin Dwyer MD) Mother Breast cancer, Onset Age: 38 Father CAD (coronary artery disease) Hyperlipidemia HTN (hypertension) History of cardiac defibrillator placement Pacemaker Family/Other Lymphoma Paternal Grandmother Dementia Sister Substance use disorder Mental health disorder Surgical History: Surgical History (Last Reviewed 06/19/24 @ 23:14 by Calin Dwyer MD) Endometriosis History of excision of mass History of lumpectomy of left breast Social History: Social History (Last Reviewed 06/19/24 @ 23:14 by Calin Dwyer MD) Living Situation History: Household Members: Family Housing: House Are you a primary healthcare administration internship to a significant other at home: No Do you presently have visiting nurse or other home services: Yes Tobacco History: Patient Tobacco Use Status: Current everyday Tobacco Tobacco use type: Cigarette Cigarette Packs Per Day: 1 e-Cigarette/Vaping Use: Never Used Second Hand Smoke Exposure: Yes Substance Use History: Substance Use Type: Marijuana Advance Directives: Advance Directives Date on File: 11/26/21 Occupation Assessmet: service: No Current occupational status: unemployed Home Medications and Allergies Current Medications: Current Medications Acetaminophen (Acetaminophen 325 Mg Tablet) 650 mg PO Q6H PRN PRN Reason: Pain, Mild (Pain Scale 1-3), fever or headache Last Admin: 06/20/24 01:12 Dose: 650 mg Albuterol Sulfate (Albuterol Sulfate 90 Mcg 8 Gm Inhaler) 1 puff INHALE QID PRN PRN Reason: Shortness Of Breath Or Wheezing Apixaban (Apixaban 2.5 Mg Tablet) 2.5 mg PO BID COUNTS INCLUDE 234 BEDS AT THE [facility] Aripiprazole (Aripiprazole 10 Mg Tablet) 10 mg PO DAILY COUNTS INCLUDE 234 BEDS AT THE [facility] Calcium Carbonate (Calcium Carbonate 750 Mg Tab.Chew) 750 mg PO Q4H PRN PRN Reason: Heartburn Duloxetine HCl (Duloxetine Hcl 20 Mg Capsule.Dr) 20 mg PO BID COUNTS INCLUDE 234 BEDS AT THE [facility] Fentanyl (Fentanyl 25 Mcg Patch.Td72) 25 mcg TRANSDERMA Q72H COUNTS INCLUDE 234 BEDS AT THE [facility] Last Admin: 06/20/24 02:25 Dose: 25 mcg Ceftriaxone Sodium 2 gm/ (Sodium Chloride) 50 mls @ 100 mls/hr IV Q24H COUNTS INCLUDE 234 BEDS AT THE [facility] Last Infusion: 06/20/24 00:27 Dose: Infused Magnesium Hydroxide (Milk Of Magnesia 30 Ml Oral.Susp) 30 ml PO DAILY PRN PRN Reason: Constipation Melatonin (Melatonin 3 Mg Tablet) 6 mg PO BEDTIME PRN PRN Reason: Insomnia Morphine Sulfate (Morphine Sulfate 4 Mg/Ml Cartridge) 4 mg IVPUSH Q4H PRN; Protocol PRN Reason: Pain, Severe (Pain Scale 7-10) Last Admin: 06/20/24 12:44 Dose: 4 mg Nitroglycerin (Nitroglycerin 0.4 Mg Tab.Subl) 0.4 mg SUBLINGUAL Q5M PRN PRN Reason: Chest Pain Ondansetron HCl (Ondansetron Hcl 4 Mg/2 Ml Vial) 4 mg IVPUSH Q8H PRN PRN Reason: Nausea and Vomiting Oxycodone HCl (Oxycodone Hcl Immed Release 5 Mg Tablet) 10 mg PO Q4H PRN PRN Reason: Pain, Severe (Pain Scale 7-10) Last Admin: 06/20/24 14:57 Dose: 10 mg Sodium Chloride (0.9 % Sodium Chloride Flush 3 Ml Syringe) 3 ml IVFLUSH QSHIFT COUNTS INCLUDE 234 BEDS AT THE [facility] Last Admin: 06/20/24 15:00 Dose: 3 ml Home Medications ?Medication ?Instructions ?Recorded ?Confirmed ?Type metoprolol tartrate 25 mg tablet 25 mg PO BID 01/14/21 06/20/24 History nitroglycerin 0.4 mg sublingual 0.4 mg sublingual Q5M PRN Chest 01/14/21 06/20/24 History tablet Pain aripiprazole 10 mg tablet (Abilify) 10 mg PO DAILY psychosis 01/16/22 06/20/24 History multivitamin with minerals-folic 0.4 tab PO DAILY 08/12/23 06/20/24 History acid 0.4 mg tablet (One-A-Day Women's 50 Plus) Magic Mouthwash 10 ml PO QID PRN Mouth Pain 06/20/24 06/20/24 History Diphen/Lido/Antacid 1:1:1 240 mL suspension albuterol sulfate 90 mcg/actuation 1 puff inhalation QID PRN 06/20/24 06/20/24 History aerosol inhaler (Ventolin HFA) Shortness Of Breath Or Wheezing morphine 30 mg tablet,extended 30 mg PO Q12H 06/20/24 06/20/24 History release nystatin 100,000 unit/mL oral 100,000 unit buccal QID PRN Mouth 06/20/24 06/20/24 History suspension Pain pantoprazole 40 mg tablet,delayed 40 mg PO DAILY@0630 06/20/24 06/20/24 History release sennosides 8.6 mg tablet (Senokot) 8.6 mg PO BID PRN prn 06/20/24 06/20/24 History Allergies Allergy/AdvReac Type Severity Reaction Status Date / Time bee pollen [BEE STINGS] Allergy Severe ANAPHYLAXIS Verified 06/19/24 18:31 Penicillins Allergy Intermediate Unknown Verified 06/19/24 18:31 danazol Allergy Unknown hand Verified 06/19/24 18:31 swelling codeine AdvReac Mild Nausea Verified 06/19/24 18:31 omeprazole [From Prilosec] AdvReac Mild Unknown Verified 06/19/24 18:31 sertraline [Zoloft] AdvReac Unknown increasedi Verified 06/19/24 18:31 rritability Physical Exam Vital signs: Vital Signs Temp 97.2 F 06/20/24 15:32 Pulse 111 H 06/20/24 15:32 Resp 18 06/20/24 15:32 BP 112/68 06/20/24 15:32 Pulse Ox 96 06/20/24 15:32 O2 Del Method Room Air 06/20/24 15:32 Intake & Output 06/19/24 06/20/24 06/20/24 18:59 06:59 18:59 Intake Total 1290 / 1290 60 / 60 Balance 1290 / 1290 60 / 60 Intake: Intake, Oral Amount 240 / 240 60 / 60 Intake, IV Amount 1050 / 1050 0.9 % Sodium Chloride 1,000 ml 1000 / 1000 @ 999 mls/hr IV .Q1H1M ONE Rx#: [id number] cefTRIAXone sodium 2 gm In 0.9 50 / 50 % Sodium Chloride 50 ml @ 100 mls/hr IV Q24H COUNTS INCLUDE 234 BEDS AT THE [facility] Rx#: [id number] Other: Lunch % Eaten 25% Eating (Feeding) Ability Independent Number of Unmeasured Voids 1 Urine Bedside Commode Last Bowel Movement 06/19/24 Weight 54.431 kg 60.5 kg 60.5 kg Weight in Grams 61101 Weight 60.5 kg - Constitutional Present: moderate distress - Routine HEENT Exam Head: Present: normal inspection, normocephalic Eye: Present: normal appearance ENT: Present: mucous membranes moist - Routine Neck Exam Present: supple - Routine Respiratory Exam Present: decreased breath sounds - Routine Cardiovascular Exam Cardiovascular: Present: RRR, S1, S2 - Routine Neurological Exam Present: alert, oriented X3 - Detailed Neurological Exam: Coma Scale Eye Opening: Spontaneous (4) Verbal Response: Oriented (5) Motor Response: Obeys commands (6) Carlie Coma Scale Total: 15 Hem/Onc Consult Result - Labs CBC & Chem 7: 06/22/24 06:27 06/22/24 06:27 Labs: Short CBC 06/19/24 06/20/24 Range/Units 19:10 06:00 WBC 16.6 H 15.0 H (4.8-10.8) X10*3/uL Hgb 10.6 L 10.2 L (12.0-16.0) g/dl Hct 31.6 L 30.7 L (37.0-47.0) % Plt Count 43 L D 40 L (160-400) X10*3/uL BMP 06/19/24 06/20/24 19:10 06:00 Sodium 128 L 128 L Potassium 4.3 4.3 Chloride 94 L 95 L Carbon Dioxide 21 L 18 L BUN 31 H 32 H Creatinine 1.30 1.32 Calcium 8.2 L 8.6 Liver Function 06/19/24 06/20/24 Range/Units 19:10 06:00 Total Bilirubin 1.2 H 0.9 (0.0-1.0) mg/dL AST 222 H 231 H (5-31) U/L ALT 35 H 38 H (0-31) U/L Alkaline Phosphatase 629 H 615 H (39-117) U/L Albumin 2.5 L 2.4 L (3.5-5.0) g/dL Urine 06/19/24 Range/Units 22:13 Urine Color Dark Yellow Urine Appearance Cloudy Urine pH 5.5 (5.0-9.0) Ur Specific [place] 1.025 (1.005-1.025) Urine Protein 30 (1+) H (Neg-Trace) mg/dL Urine Glucose (UA) Negative (Negative) mg/dL Assessment and Plan Patient Active problem list reviewed?: Yes (1) Pancreatic carcinoma metastatic to liver Status: Acute Assessment and plan: This is a pleasant unfortunate 48-year-old lady with metastatic pancreatic carcinoma with pulmonary and liver metastases. She had presented last year in July with abdominal pain. 08/24 MRI of the abdomen revealed: 1.3 x 1.6 x 1.8 cm mass in the body of the pancreas. No dilatation of the main pancreatic duct. There are numerous peripherally enhancing hepatic masses. There are enlarged gastrohepatic ligament and retroperitoneal lymph nodes. This likely represents metastatic disease. l checked CA 19-9: 18. l proceeded with a PET scan for restaging purposes. She had a biopsy of the liver lesion on 09/06. It revealed: Poorly differentiated carcinoma consistent with pancreatic primary. She saw Dr. Landry Perez at [facility] on 09/20/23. His recommendation was to proceed with FOLFIRINOX based palliative chemotherapy. She was started on it on 09/28/23. Here had 6 cycles[address] She had a [address] chest and abdomen for re-staging on November 26. This revealed: 1. Significantly diminished size and number of lung nodules. 2. Significant reduction in size of liver metastases. 3. Stable left adrenal gland nodule. She had elected to take a break from treatment over the summer. She has not been treated since February 14. She then had increasing abdominal pain, decreased appetite and weight loss. I proceeded with imaging studies to restage her. CT chest abdomen pelvis were done on 04/24 and revealed: 1. Increased conspicuity and size of a lesion centered within the body of the pancreas suspicious for primary pancreatic adenocarcinoma. The lesion partially encases but does not obstruct the adjacent common hepatic artery. 2. Innumerable hepatic metastases increased in size and number compared with 02/21/2024. 3. Multiple pulmonary nodules consistent with metastatic disease increased in size and number compared with 02/21/2024. 4. Newly identified lymphadenopathy. Newly identified left paratracheal, celiac and abdominal/pelvic pericaval and periaortic lymphadenopathy. 5. Unchanged 1.0 cm left adrenal nodule compared with 02/21/2024. 6. The previously noted thrombus adjacent to a catheter within the left internal jugular vein noted on the 02/21/2024 examination is no longer identified and may have resolved. Unfortunately she had significant disease progression. She decided to resume her treatment. She had removal of the Port-A-Cath and had a new one inserted on 04/25. She started on 05/01. She presents with generalized weakness, failure to thrive. CT scan of the abdomen from 06/19 revealed: 1. Diffuse heterogeneous liver likely hepatic metastasis with hepatomegaly. 2. Large amount of ascites. Consider long-term drainage catheter for ascites. 3. Multiple peritoneal nodules, lymph nodes and bilateral para-aortic lymphadenopathy. 4. Multiple lung nodules in both lung bases with small left pleural effusion. THROMBOCYTOPENIA: Could be related to the infection, versus DIC. Unfortunately patient has significant ascites and a UTI. She does have a white count. Concern was if she has SBP. She actually underwent a paracentesis with removal of almost 3 L of fluid. Results are pending. Meanwhile, she is being covered with broad-spectrum antibiotics, against enteric Gram-negative bacteria. Would extremity edema is likely due to hypoproteinemia. She has lost a lot of weight. She is unsteady on her feet, partly from deconditioning and partly from neuropathy. Did address with her my concern that she has significant disease progression. Unable to institute chemotherapy in view of her low blood counts and active infection. PLAN: Continue antibiotics as you are doing. Adjust according to the I. D. Check DIC screen. (fibrinogen: >700.) Continue narcotic analgesics for pain control. She may require stay in the rehab, for reconditioning. Thank you for the consult, I will follow along with you, CC: Mina. - Time Spent With Patient Time Spent with Patient (in minutes): 30
[2024-06-20 16:57] LABS: Fibrinogen > 700 MG/DL (259-690)
[2024-06-20] MEDS: Nicotine 21 MG PATCH.TD24 TRANSDERMA (17:59)
[2024-06-20] MEDS: Apixaban 2.5 MG TABLET PO (20:05)
[2024-06-20] MEDS: DULoxetine HCl 20 MG CAPSULE.DR PO (20:05)
[2024-06-20] MEDS: cefTRIAXone sodium 2 GM in 0.9 % Sodium Chloride 50 ML IV (22:32)
[2024-06-21 02:44] VITALS: BP 110/75; PULSE 111; RESP 17; TEMP 36.2; O2SAT 95
[2024-06-21] MEDS: oxyCODONE HCl Immed Release 5 MG TABLET 10 MG PO ×3 (03:29→19:49)
--- NOTE | 2024-06-21 03:47 | PC.NURSE ---
Pt AOx3, able to make needs known. Pt c/o ABD pain, tired d/t not being able to sleep in hospital bed. Ambulating x1 assist w/cane. Approx 0250 pt asked ROTARY PLANER SET UP OPERATOR for this RN to come bedside. Pt stating she would like to go home. She stated she can not sleep and is exhausted, she misses her dog, and her oncologist informed her the chemotherapy she is having is killing her. Pt understandably emotional. This RN discussed leaving AMA and what that would mean for her. Hospitalist contacted, stated he wants her to stay d/t WBC being elevated, wants her to have labs drawn, review results w/day team and discuss d/c. Relayed this to pt who stated she would stay until labs were drawn and then wants to leave. Informed hospitalist of pt's decision. Pt then asked for recliner to attempt to get some sleep. Call brewer within reach.
[2024-06-21] MEDS: Morphine Sulfate 4 MG/ML CARTRIDGE IVPUSH ×3 (06:03→21:40)
[2024-06-21 06:28] LABS: Sodium Urine Random < 20.0 mmol/L
[2024-06-21 06:35] LABS: Osmolality Urine 613 mosm/kg (373-1093)
[2024-06-21 07:17] VITALS: BP 111/73; PULSE 113; RESP 20; TEMP 36.2; O2SAT 97
[2024-06-21] MEDS: ARIPiprazole 10 MG TABLET PO (08:00)
[2024-06-21] MEDS: DULoxetine HCl 20 MG CAPSULE.DR PO ×2 (08:00→19:49)
[2024-06-21] MEDS: Acetaminophen 325 MG TABLET 650 MG PO (08:01)
[2024-06-21] MEDS: Nicotine 21 MG PATCH.TD24 TRANSDERMA (08:03)
[2024-06-21] MEDS: 0.9 % Sodium Chloride Flush 3 ML SYRINGE IVFLUSH ×3 (08:05→19:49)
[2024-06-21 08:15] LABS: Hematocrit 31.8 % (37.0-47.0); Hemoglobin 10.5 g/dl (12.0-16.0); Mean Corpuscular Hemoglobin 26.8 pg (27.0-33.0); Mean Corpuscular Volume 81.1 fL (80.0-98.0); Red Blood Count 3.92 X10*6/uL (4.20-5.50); Red Cell Distribution Width 26.4 % (11.0-16.0); White Blood Count 16.1 X10*3/uL (4.8-10.8)
[2024-06-21 08:16] LABS: Platelet Count 34 X10*3/uL (160-400)
[2024-06-21 08:20] LABS: INTERNATIONAL NORM RATIO 1.2 (0.9-1.1); Prothrombin Time 14.5 SEC (11.1-13.3)
[2024-06-21 08:23] LABS: D Dimer High Sensitivity 2564 NG/ML
[2024-06-21 08:52] LABS: Partial Thromboplastin Time 24.8 SEC (26.0-36.8)
[2024-06-21 08:53] LABS: Fibrinogen > 700 MG/DL (259-690)
[2024-06-21] MEDS: ondansetron HCL 4 MG/2 ML VIAL IVPUSH (10:35)
[2024-06-21 12:37] LABS: pH Peritoneal Fluid 7.7
--- NOTE | 2024-06-21 12:59 | MHC.CM.PN ---
Per MD rounds not medically cleared for dc. CM will continue to follow.
[2024-06-21 15:53] VITALS: BP 113/68; PULSE 108; RESP 18; TEMP 36.4; O2SAT 96
--- NOTE | 2024-06-21 16:05 | P.PNIM_ITS ---
Subjective Subjective Date of Service: 06/21/24 Interval History: Being followed for generalized weakness, urinary burning and abdominal distention. Complaining of abdominal pain, denies urinary symptoms, was unable to sleep since felt mattress was not comfortable, no fevers no chills , has not used dexamethasone in last several days. Review of Systems All other system reviewed and are negative. Physical Exam 2 Vital Signs: Vital Signs: Last Vital Signs Temp 97.5 F 06/21/24 15:53 Pulse 108 H 06/21/24 15:53 Resp 18 06/21/24 15:53 BP 113/68 06/21/24 15:53 Pulse Ox 96 06/21/24 15:53 O2 Del Method Room Air 06/21/24 15:53 BMI result Body Mass Index 24.4 Const: Other: General sitting comfortably in no acute distress. Anicteric sclera Neck no JVD. CVS regular rate rhythm, Respiratory lungs clear to auscultation, no respiratory distress, no wheeze, no rhonchi. Gastrointestinal abdomen mild distention, mid abdominal tenderness, bowel sounds audible, no guarding , no rigidity. Extremities bilateral pitting edema. Neuro speech clear, nonfocal. Skin no rash Psych appropriate affect Objective Data Active Medications Acetaminophen (Acetaminophen 325 Mg Tablet) 650 mg PO Q6H PRN PRN Reason: Pain, Mild (Pain Scale 1-3), fever or headache Last Admin: 06/21/24 08:01 Dose: 650 mg Documented By: CIRO Albuterol Sulfate (Albuterol Sulfate 90 Mcg 8 Gm Inhaler) 1 puff INHALE QID PRN PRN Reason: Shortness Of Breath Or Wheezing Apixaban (Apixaban 2.5 Mg Tablet) 2.5 mg PO BID [facility] Last Admin: 06/21/24 08:00 Dose: Not Given Documented By: CIRO Non-Admin Reason: Patient Refused Aripiprazole (Aripiprazole 10 Mg Tablet) 10 mg PO DAILY [facility] Last Admin: 06/21/24 08:00 Dose: 10 mg Documented By: CIRO Calcium Carbonate (Calcium Carbonate 750 Mg Tab.Chew) 750 mg PO Q4H PRN PRN Reason: Heartburn Duloxetine HCl (Duloxetine Hcl 20 Mg Capsule.Dr) 20 mg PO BID [facility] Last Admin: 06/21/24 08:00 Dose: 20 mg Documented By: CIRO Fentanyl (Fentanyl 25 Mcg Patch.Td72) 25 mcg TRANSDERMA Q72H [facility] Last Admin: 06/20/24 02:25 Dose: 25 mcg Documented By: CITLALLI Ceftriaxone Sodium 2 gm/ (Sodium Chloride) 50 mls @ 100 mls/hr IV Q24H [facility] Last Infusion: 06/20/24 23:08 Dose: Infused Documented By: TOMAS Magnesium Hydroxide (Milk Of Magnesia 30 Ml Oral.Susp) 30 ml PO DAILY PRN PRN Reason: Constipation Melatonin (Melatonin 3 Mg Tablet) 6 mg PO BEDTIME PRN PRN Reason: Insomnia Morphine Sulfate (Morphine Sulfate 4 Mg/Ml Cartridge) 4 mg IVPUSH Q4H PRN; Protocol PRN Reason: Pain, Severe (Pain Scale 7-10) Last Admin: 06/21/24 06:03 Dose: 4 mg Documented By: TOMAS Nicotine (Nicotine 21 Mg Patch.Td24) 21 mg TRANSDERMA DAILY [facility] Last Admin: 06/21/24 08:03 Dose: 21 mg Documented By: CIRO Nitroglycerin (Nitroglycerin 0.4 Mg Tab.Subl) 0.4 mg SUBLINGUAL Q5M PRN PRN Reason: Chest Pain Ondansetron HCl (Ondansetron Hcl 4 Mg/2 Ml Vial) 4 mg IVPUSH Q8H PRN PRN Reason: Nausea and Vomiting Last Admin: 06/21/24 10:35 Dose: 4 mg Documented By: CIRO Oxycodone HCl (Oxycodone Hcl Immed Release 5 Mg Tablet) 10 mg PO Q4H PRN PRN Reason: Pain, Severe (Pain Scale 7-10) Last Admin: 06/21/24 08:02 Dose: 10 mg Documented By: CIRO Polyethylene Glycol (Polyethylene Glycol 3350 17 Gm Powd.Pack) 17 gm PO DAILY [facility] Last Admin: 06/21/24 10:38 Dose: Not Given Documented By: CIRO Non-Admin Reason: Patient Refused Senna/Docusate Sodium (Sennosides/Docusate Sodium Tablet) 1 tab PO DAILY [facility] Last Admin: 06/21/24 10:38 Dose: Not Given Documented By: CIRO Non-Admin Reason: Patient Refused Sodium Chloride (0.9 % Sodium Chloride Flush 3 Ml Syringe) 3 ml IVFLUSH QSHIFT [facility] Last Admin: 06/21/24 08:05 Dose: 3 ml Documented By: CIRO Labs 06/21/24 07:44 06/20/24 06:00 Labs: Laboratory Results - last 24 hr 06/20/24 06/20/24 06/21/24 06:00 12:04 06:08 MCV MCH MCHC RDW Plt Count MPV Absolute Nucleated RBC Nucleated RBC % (auto) PT INR APTT Fibrinogen > 700 H D-Dimer High Sensitivty Urine Osmolality 613 Ur Random Sodium < 20.0 Peritoneal pH 7.7 06/21/24 07:44 MCV 81.1 MCH 26.8 L MCHC 33.0 RDW 26.4 H Plt Count 34 L MPV Not Reportable Absolute Nucleated RBC 0.000 Nucleated RBC % (auto) 0.0 PT 14.5 H INR 1.2 H APTT 24.8 L Fibrinogen > 700 H D-Dimer High Sensitivty 2564 Urine Osmolality Ur Random Sodium Peritoneal pH Microbiology Microbiology Results: Microbiology 06/19/24 22:32 Urine Culture - Final Urine clean catch - Clean Catch Midstream 06/20/24 12:04 Gram Stain - Final Peritoneal Fluid Routine Culture - Preliminary No growth to date. Anaerobic Culture - Preliminary No growth to date. 06/19/24 23:51 Blood Culture - Preliminary Blood - Venous No growth after 24 hours. 06/19/24 23:39 Blood Culture - Preliminary Blood - Venous No growth after 24 hours. Assessment and Plan (1) Generalized weakness: Status: Acute (2) Pancreatic carcinoma metastatic to liver: Status: Acute Plan 48-year-old female with pertinent history of breast cancer status post mastectomy, metastatic pancreatic cancer diagnosed in Jul 2023 on chemotherapy, tobacco use disorder, history of PE on Eliquis, gastroesophageal reflux disease, congestive heart failure with preserved ejection fraction, peripheral neuropathy who presents to the emergency department for evaluation of weakness. #. Sepsis due to acute UTI: Initially felt to have sepsis due to UTI however urine culture grew mixed bacterial cady, blood cultures x2 negative Continue empiric IV ceftriaxone started on 06/19, follow final blood cultures, lactic acid 1.7, Persistent leukocytosis question related to cancer has not use steroids recently, follow peritoneal fluid studies Peritoneal fluid sent to outside lab, report not available, although elevated WBC and neutrophils, but peritoneal fluid culture showed no growth no dic. #. Ch.Abdominal pain likely due to ascites related to underlying pancreatic cancer. s/p therapeutic and diagnostic paracentesis , follow fluid studies, sent to outside lab. #. Generalized weakness: Seen by Physical therapy they recommend home with services for bed mobility, transfer and gait training and therapeutic exercises. #. Thrombocytopenia in the setting of chemotherapy, platelets gradually trending down 43 to 34 today, follow CBC, hold platelet transfusion, monitor for bleeding and cbc. #. Metastatic pancreatic cancer: CT abdomen and pelvis showed diffuse heterogeneous liver likely hepatic metastasis, multiple peritoneal nodules, lymph nodes and bilateral para-aortic lymphadenopathy, multiple lung nodules with small left pleural effusion , elevated LDH 2490, Seen by Oncology, DIC screen negative, PT recommend home patient declining rehab Good pain control on current medication, fentanyl patch recently increased to 50 mcg, but tolerating 25mcg in-house with no complaints of pain #. Elevated liver enzymes in the setting of above, avoid hepatotoxins. #. Hyponatremia: Serum osmolality 268, urine osmolality normal and urine < 20 likely due to hypovolemia will follow bmp. #. History of PE: As per patient she is not using Eliquis at home for several weeks as per oncology recommendation, due to thrombocytopenia will hold Eliquis #. Peripheral neuropathy: On Lyrica DVT prophylaxis: compression boots DNR/DNI. Patient will require continued inpatient hospitalization for IV antibiotics, monitoring of blood cultures, and peritoneal fluid studies. Quality Stroke Does the patient have a stroke diagnosis?: No VTE Prior VTE?: No VTE Risk Level:: Medical - moderate - high VTE Device Contraindication: Treatment Not Indicated VTE Drug Contraindication: N/A - Med Ordered
[2024-06-21 16:20] LABS: Amylase Peritoneal Fluid 69
[2024-06-21 16:22] LABS: Albumin Peritoneal Fluid 1.2
[2024-06-21 16:25] LABS: LDH Peritoneal Fluid 598
[2024-06-21 16:29] LABS: Glucose Peritoneal Fluid 105
[2024-06-21 16:32] LABS: Total Protein Peritoneal Fluid 2.2
[2024-06-21 16:47] VITALS: RESP 18
[2024-06-21 19:13] VITALS: BP 104/68; PULSE 110; RESP 18; TEMP 36.6; O2SAT 95
[2024-06-21] MEDS: cefTRIAXone sodium 2 GM in 0.9 % Sodium Chloride 50 ML IV (21:40)
[2024-06-22] MEDS: Acetaminophen 325 MG TABLET 650 MG PO (00:44)
[2024-06-22 04:00] VITALS: BP 120/69; PULSE 112; RESP 16; TEMP 36.2; O2SAT 96
[2024-06-22] MEDS: oxyCODONE HCl Immed Release 5 MG TABLET 10 MG PO ×3 (05:18→18:05)
[2024-06-22 07:19] VITALS: BP 95/61; PULSE 110; RESP 14; TEMP 36.4; O2SAT 97
[2024-06-22 08:06] LABS: Anion Gap 17 (12-20); Blood Urea Nitrogen 37 mg/dL (9-16); Calcium 8.6 mg/dL (8.4-10.2); Carbon Dioxide 21 mmol/L (22-29); Chloride 92 mmol/L (96-108); Creatinine Clr Calc Pharmacy 70.3; Estimated Glomerular Filt Rate > 60; Glucose Random 140 mg/dL (60-115); Potassium 4.4 mmol/L (3.3-5.1); Sodium 126 mmol/L (135-145)
[2024-06-22 08:08] LABS: Hematocrit 34.7 % (37.0-47.0); Hemoglobin 11.1 g/dl (12.0-16.0); Mean Corpuscular Hemoglobin 26.7 pg (27.0-33.0); Mean Corpuscular Volume 83.4 fL (80.0-98.0); Platelet Count 32 X10*3/uL (160-400); Red Blood Count 4.16 X10*6/uL (4.20-5.50); Red Cell Distribution Width 26.3 % (11.0-16.0); White Blood Count 18.8 X10*3/uL (4.8-10.8)
[2024-06-22] MEDS: 0.9 % Sodium Chloride Flush 3 ML SYRINGE IVFLUSH ×2 (08:31→19:20)
[2024-06-22] MEDS: ARIPiprazole 10 MG TABLET PO (08:31)
[2024-06-22] MEDS: Nicotine 21 MG PATCH.TD24 TRANSDERMA (08:31)
[2024-06-22] MEDS: DULoxetine HCl 20 MG CAPSULE.DR PO ×2 (08:31→21:04)
[2024-06-22] MEDS: Morphine Sulfate 4 MG/ML CARTRIDGE IVPUSH ×3 (08:38→19:20)
--- NOTE | 2024-06-22 11:32 | MHC.CLN ---
F/U DIET=REGULAR. ENSURE TID PROVIDES ADDITIONAL 1050 KCALS, 60 G PROTEIN. DX PANCREATIC CANCER WITH METS TO LIVER. FAIR PO INTAKE, 25-50%. FOLLOW FOR INTAKE AND DIET TOLERANCE.
--- NOTE | 2024-06-22 13:22 | P.PNIM_ITS ---
Subjective Subjective Date of Service: 06/22/24 Interval History: Seen and examined this morning Follow-up for weakness, hyponatremia, metastatic pancreatic cancer Afebrile, no significant abdominal pain. Wants to go home Review of Systems Review of Systems: Yes all other systems are reviewed and are negative Constitutional Constitutional: Denies chills and Denies fever(s) ENT Ears, Nose, Mouth, and Throat: Denies dizziness Cardiovascular Cardiovascular: Denies chest pain, Denies palpitations and Denies dyspnea Respiratory Respiratory: Denies cough and Denies dyspnea Gastrointestinal Gastrointestinal: Denies abdominal pain Neurologic Neurologic: Denies dizziness Endocrine Endocrine: Denies palpitations Physical Exam 2 Vital Signs: Vital Signs: Last Vital Signs Temp 97.6 F 06/22/24 07:19 Pulse 110 H 06/22/24 07:19 Resp 14 06/22/24 07:19 BP 95/61 06/22/24 07:19 Pulse Ox 97 06/22/24 07:19 O2 Del Method Room Air 06/22/24 07:19 BMI result Body Mass Index 24.4 Const: Other: Thin, chronically ill-appearing Orientation/consciousness: patient oriented x3 Resp: Effort & Inspection: normal respiratory effort, able to speak in complete sentences, no respiratory distress and no use of accessory muscles A uscultation: clear to auscultation bilaterally Cardio: Rate: tachycardic GI: Other: softly distended, +ascites, no guarding, no rebound Palpation (GI): Soft to palpation Neuro: General: patient oriented x3, moves all extremities and CN's II-XI intact bilaterally Extrem: Other: trace -1+ leg edema b/l LE Objective Data Active Medications Acetaminophen (Acetaminophen 325 Mg Tablet) 650 mg PO Q6H PRN PRN Reason: Pain, Mild (Pain Scale 1-3), fever or headache Last Admin: 06/22/24 00:44 Dose: 650 mg Documented By: TOMAS Albuterol Sulfate (Albuterol Sulfate 90 Mcg 8 Gm Inhaler) 1 puff INHALE QID PRN PRN Reason: Shortness Of Breath Or Wheezing Aripiprazole (Aripiprazole 10 Mg Tablet) 10 mg PO DAILY [facility] Last Admin: 06/22/24 08:31 Dose: 10 mg Documented By: GERALD Calcium Carbonate (Calcium Carbonate 750 Mg Tab.Chew) 750 mg PO Q4H PRN PRN Reason: Heartburn Duloxetine HCl (Duloxetine Hcl 20 Mg Capsule.Dr) 20 mg PO BID [facility] Last Admin: 06/22/24 08:31 Dose: 20 mg Documented By: GERALD Fentanyl (Fentanyl 25 Mcg Patch.Td72) 25 mcg TRANSDERMA Q72H [facility] Last Admin: 06/20/24 02:25 Dose: 25 mcg Documented By: CITLALLI Ceftriaxone Sodium 2 gm/ (Sodium Chloride) 50 mls @ 100 mls/hr IV Q24H [facility] Last Infusion: 06/21/24 22:15 Dose: Infused Documented By: TOMAS Sodium Chloride (Ns) 1,000 mls @ 80 mls/hr IVCONT .[id number] [facility] Stop: 06/23/24 01:29 Magnesium Hydroxide (Milk Of Magnesia 30 Ml Oral.Susp) 30 ml PO DAILY PRN PRN Reason: Constipation Melatonin (Melatonin 3 Mg Tablet) 6 mg PO BEDTIME PRN PRN Reason: Insomnia Morphine Sulfate (Morphine Sulfate 4 Mg/Ml Cartridge) 4 mg IVPUSH Q4H PRN; Protocol PRN Reason: Pain, Severe (Pain Scale 7-10) Last Admin: 06/22/24 08:38 Dose: 4 mg Documented By: GERALD Nicotine (Nicotine 21 Mg Patch.Td24) 21 mg TRANSDERMA DAILY [facility] Last Admin: 06/22/24 08:31 Dose: 21 mg Documented By: GERALD Nitroglycerin (Nitroglycerin 0.4 Mg Tab.Subl) 0.4 mg SUBLINGUAL Q5M PRN PRN Reason: Chest Pain Ondansetron HCl (Ondansetron Hcl 4 Mg/2 Ml Vial) 4 mg IVPUSH Q8H PRN PRN Reason: Nausea and Vomiting Last Admin: 06/21/24 10:35 Dose: 4 mg Documented By: CIRO Oxycodone HCl (Oxycodone Hcl Immed Release 5 Mg Tablet) 10 mg PO Q4H PRN PRN Reason: Pain, Severe (Pain Scale 7-10) Last Admin: 06/22/24 09:35 Dose: 10 mg Documented By: GERALD Polyethylene Glycol (Polyethylene Glycol 3350 17 Gm Powd.Pack) 17 gm PO DAILY [facility] Last Admin: 06/22/24 08:45 Dose: Not Given Documented By: GERALD Non-Admin Reason: Patient Refused Senna/Docusate Sodium (Sennosides/Docusate Sodium Tablet) 1 tab PO DAILY [facility] Last Admin: 06/22/24 08:45 Dose: Not Given Documented By: GERALD Non-Admin Reason: Patient Refused Sodium Chloride (0.9 % Sodium Chloride Flush 3 Ml Syringe) 3 ml IVFLUSH QSHIFT [facility] Last Admin: 06/22/24 08:31 Dose: 3 ml Documented By: GERALD Labs 06/22/24 06:27 06/22/24 06:27 Labs: Laboratory Results - last 24 hr 06/20/24 06/22/24 12:04 06:27 MCV 83.4 MCH 26.7 L MCHC 32.0 RDW 26.3 H Plt Count 32 L MPV Not Reportable Absolute Nucleated RBC 0.000 Nucleated RBC % (auto) 0.0 Anion Gap 17 Estim Creat Clear Calc 70.3 Estimated GFR > 60 Random Glucose 140 H Calcium 8.6 Peritoneal Tot Protein 2.2 Peritoneal Albumin 1.2 Peritoneal LDH 598 Peritoneal Glucose 105 Peritoneal Amylase 69 Microbiology Microbiology Results: Microbiology 06/20/24 12:04 Gram Stain - Final Peritoneal Fluid Routine Culture - Final No growth after 2 days Anaerobic Culture - Preliminary 06/19/24 23:51 Blood Culture - Preliminary Blood - Venous No growth after 48 hours. 06/19/24 23:39 Blood Culture - Preliminary Blood - Venous No growth after 48 hours. 06/19/24 22:32 Urine Culture - Final Urine clean catch - Clean Catch Midstream Assessment and Plan (1) Pancreatic carcinoma metastatic to liver: Status: Acute Plan 48-year-old female with pertinent history of breast cancer status post mastectomy, metastatic pancreatic cancer diagnosed in Jul 2023 on chemotherapy, tobacco use disorder, history of PE on Eliquis, gastroesophageal reflux disease, congestive heart failure with preserved ejection fraction, peripheral neuropathy who presents to the emergency department for evaluation of weakness. Sepsis Initially felt to have sepsis due to UTI however urine culture grew mixed bacterial cady, blood cultures x2 negative Persistent leukocytosis ?related to cancer has not use steroids recently elevated WBC and neutrophils c/w SBP, but peritoneal fluid culture showed no growth - continue ceftriaxone 2 gm; check US to eval for portal vein thrombus no dic. Abdominal pain likely due to ascites related to underlying pancreatic cancer. s/p therapeutic and diagnostic paracentesis Generalized weakness: Seen by Physical therapy they recommend home with services for bed mobility, transfer and gait training and therapeutic exercises. Thrombocytopenia in the setting of chemotherapy, platelets gradually trending down 43 to 34 today, follow CBC, hold platelet transfusion, monitor for bleeding and cbc. Metastatic pancreatic cancer: CT abdomen and pelvis showed diffuse heterogeneous liver likely hepatic metastasis, multiple peritoneal nodules, lymph nodes and bilateral para-aortic lymphadenopathy, multiple lung nodules with small left pleural effusion , elevated LDH 2490, Seen by Oncology, DIC screen negative, PT recommend home patient declining rehab Good pain control on current medication, fentanyl patch recently increased to 50 mcg, but tolerating 25mcg in-house with no complaints of pain Elevated liver enzymes in the setting of above, avoid hepatotoxins. Hyponatremia: Serum osmolality 268, urine osmolality normal and urine < 20 likely due to hypovolemia will give IVF and repeat BMP in am History of PE: As per patient she is not using Eliquis at home for several weeks as per oncology recommendation, due to thrombocytopenia will hold Eliquis Peripheral neuropathy: On Lyrica DVT prophylaxis: compression boots DNR/DNI. Patient will require continued inpatient hospitalization for IV antibiotics, monitoring of blood cultures, and peritoneal fluid studies. Quality Stroke Does the patient have a stroke diagnosis?: No VTE Prior VTE?: No VTE Risk Level:: Medical - moderate - high VTE Device Contraindication: Treatment Not Indicated VTE Drug Contraindication: N/A - Med Ordered
[2024-06-22] MEDS: 0.9 % Sodium Chloride 1,000 ML 80 ML IVCONT (13:38)
--- NOTE | 2024-06-22 14:25 | MHC.HEMONCSW ---
This poem writer met with Marah in her room upstairs where she is admitted. Patient presented as clear headed and wanting to talk. Nurse navigator Tanja was also in attendance, with cessation of treatment and hospice options being discussed. This poem writer will follow up with patient tomorrow.
[2024-06-22 15:41] VITALS: BP 118/77; PULSE 123; RESP 18; TEMP 36.2; O2SAT 96
--- NOTE | 2024-06-22 17:01 | PC.NURSE ---
Addendum entered by Veronica Black RN 06/22/24 17:15: 12.5mg of metoprolol ordered per PA. Original Note: [place] made aware pts HR continues to be elevated last reading 123. Pt asymptomatic at this time. No new orders received, Per PA will review home medications.
--- NOTE | 2024-06-22 18:15 | PC.NURSE ---
Fentanyl patch on mid abd CDI, dated for 06/20/24.
[2024-06-22 19:11] VITALS: BP 109/77; PULSE 99; RESP 20; TEMP 36; O2SAT 96
[2024-06-22] MEDS: Metoprolol Tartrate 12.5 MG HALFTAB PO (21:04)
[2024-06-22] MEDS: cefTRIAXone sodium 2 GM in 0.9 % Sodium Chloride 50 ML IV (21:05)
[2024-06-23 03:55] VITALS: BP 101/65; PULSE 108; RESP 16; TEMP 36.3; O2SAT 97
[2024-06-23] MEDS: fentaNYL 25 MCG PATCH.TD72 TRANSDERMA (03:56)
--- NOTE | 2024-06-23 04:01 | PC.NURSE ---
Addendum entered by Shirlene Gordon RN 06/23/24 05:11: Old fentanyl patch disposed of in med room in med dispose bottle. Original Note: New fentanyl patch placed on left lower ABD, old fentanyl patch removed from right lower ABD
[2024-06-23] MEDS: oxyCODONE HCl Immed Release 5 MG TABLET 10 MG PO ×2 (04:04→12:16)
--- NOTE | 2024-06-23 05:11 | PC.NURSE ---
Pt continues to be AOx3, sometimes forgetful when she first wakes up. Fentanyl patch replaced, now on left lower/mid ABD and covered w/tegaderm. Pt continues to vocalize desire to go home and see her dog. She told this colon and rectal surgeon is being discussed and she is unsure how to proceed. This RN encouraged pt to consider what is best for her and to request more information if she needs it to make her decision. Pt also mentioned she would like something to help her appetite. Stated her appetite has been decreasing and she is a foodie. Encourage pt to discuss this w/the medical team when they round in the morning and this RN will pass it on to the day shift RN. She also stated she realizes she is weak and would like to work on regaining her strength. Call brewer within reach, bed alarm on.
[2024-06-23 06:42] LABS: Anion Gap 18 (12-20); Blood Urea Nitrogen 34 mg/dL (9-16); Calcium 8.4 mg/dL (8.4-10.2); Carbon Dioxide 20 mmol/L (22-29); Chloride 93 mmol/L (96-108); Estimated Glomerular Filt Rate > 60; Glucose Random 82 mg/dL (60-115); Potassium 4.5 mmol/L (3.3-5.1); Sodium 126 mmol/L (135-145)
[2024-06-23 07:25] LABS: MANUAL DIFF FLAG NO
[2024-06-23 07:26] VITALS: BP 99/66; PULSE 96; RESP 17; TEMP 36.6; O2SAT 97
[2024-06-23 07:34] LABS: Basophils Absolute Auto 0.1 X10*3/uL (0.0-0.2); Basophils Percent Auto 0.3 % (0-2); Eosinophils Percent Auto 0.1 % (0-4); Hematocrit 30.3 % (37.0-47.0); Hemoglobin 10.1 g/dl (12.0-16.0); Imm Gran Abs Auto 0.79 X10*3/uL (0.00-0.03); Lymphocytes Absolute Auto 0.6 X10*3/uL (1.2-4.9); Lymphocytes Percent Auto 2.9 % (20-40); Mean Corpuscular HGB Conc 33.3 g/dl (31.0-35.0); Mean Corpuscular Hemoglobin 27.4 pg (27.0-33.0); Mean Corpuscular Volume 82.3 fL (80.0-98.0); Monocytes Absolute Auto 1.5 X10*3/uL (0.1-1.2); Monocytes Percent Auto 7.6 % (2-11); Neutrophils Absolute Auto 16.8 x10*3/uL (2.0-8.3); Neutrophils Percent Auto 85.1 % (45-73); Red Blood Count 3.68 X10*6/uL (4.20-5.50); Red Cell Distribution Width 25.6 % (11.0-16.0); White Blood Count 19.7 X10*3/uL (4.8-10.8)
[2024-06-23 07:39] LABS: Platelet Count 26 X10*3/uL (160-400)
[2024-06-23] MEDS: 0.9 % Sodium Chloride Flush 3 ML SYRINGE IVFLUSH ×2 (08:38→17:10)
[2024-06-23] MEDS: Metoprolol Tartrate 12.5 MG HALFTAB PO (08:39)
[2024-06-23] MEDS: DULoxetine HCl 20 MG CAPSULE.DR PO (08:39)
[2024-06-23] MEDS: Nicotine 21 MG PATCH.TD24 TRANSDERMA (08:40)
[2024-06-23] MEDS: ARIPiprazole 10 MG TABLET PO (08:40)
[2024-06-23] MEDS: Morphine Sulfate 4 MG/ML CARTRIDGE IVPUSH ×2 (08:48→17:09)
--- NOTE | 2024-06-23 10:58 | MHC.CM.PN ---
Addendum entered by Leia Petersen RN 06/23/24 14:40: Hospice meds to be sent to [facility] [place]. Pharmacy aware and will deliver to room. Addendum entered by Leia Petersen RN 06/23/24 14:31: Patient prefers to return home tonight. Will sign on w/ [facility] tomorrow morning. Does not want a hospital bed. Hospice and PA aware. BLS transport scheduled for 7pm per patient request. [facility] booking ID [id number]. RN aware. [facility]MM delivered. Addendum entered by Leia Petersen RN 06/23/24 12:48: Patient will move forward w/ hospice. Anticipate equipment delivery tonight and potential dc tomorrow. Original Note: Patient requesting hospice informational. [facility] will provide informational this morning. CM will continue to follow.
--- NOTE | 2024-06-23 11:20 | P.CONNP_ITS ---
History of Present Illness Reason for Consult Consult date: 06/23/24 Reason for consult: Hyponatremia Chief Complaint Chief complaint: Weakness History of Present Illness Narrative: 48-year-old female with pertinent history of breast cancer status post mastectomy, metastatic pancreatic cancer diagnosed in Jul 2023 on chemotherapy, tobacco use disorder, history of PE on Eliquis, gastroesophageal reflux disease, congestive heart failure with preserved ejection fraction, peripheral neuropathy She has been drinking plenty of free water because she does not get dehydrated. Urine sodium was low she received IV fluids. Serum sodium remains at 126 Review of Systems Constitutional: Reports weakness Denies vertigo, Denies dizziness and Reports dry mouth Cardiovascular: Denies chest pain Respiratory: Denies cough Gastrointestinal: Denies abdominal pain and Denies diarrhea Denies vertigo, Denies dizziness and Reports weakness PMFSH Past Medical History Medical History Pancreatic carcinoma metastatic to liver Impaired fasting glucose Skin lesion of left upper extremity Diastolic dysfunction Hx of lipoma Hx of cyst of breast Invasive ductal carcinoma of left breast Family history of breast cancer gene mutation in first degree relative Exertional dyspnea Family History Family History Mother Breast cancer, Onset Age: 38 Father CAD (coronary artery disease) Hyperlipidemia HTN (hypertension) History of cardiac defibrillator placement Pacemaker Family/Other Lymphoma Paternal Grandmother Dementia Sister Substance use disorder Mental health disorder Surgical History Surgical History History of lumpectomy of left breast Endometriosis History of excision of mass Social History Social History Household Members: Family Housing: House Are you a primary care mgr to a significant other at home: No Do you presently have visiting nurse or other home services: Yes Alcohol intake: current Alcohol intake frequency: does not drink Comment: Friend bedside Patient Tobacco Use Status: Current everyday Tobacco user Tobacco use type: Cigarette Cigarette Packs Per Day: 1 e-Cigarette/Vaping Use: Never Used Second Hand Smoke Exposure: Yes Substance Use Type: Marijuana Advance Directives Date on File: 11/26/21 service: No Current occupational status: unemployed Cognitive needs: No Hearing needs: No Vision needs: No Meds Allergies Allergy/AdvReac Type Severity Reaction Status Date / Time bee pollen [BEE STINGS] Allergy Severe ANAPHYLAXIS Verified 06/19/24 18:31 Penicillins Allergy Intermediate Unknown Verified 06/19/24 18:31 danazol Allergy Unknown hand Verified 06/19/24 18:31 swelling codeine AdvReac Mild Nausea Verified 06/19/24 18:31 omeprazole [From Prilosec] AdvReac Mild Unknown Verified 06/19/24 18:31 sertraline [Zoloft] AdvReac Unknown increasedi Verified 06/19/24 18:31 rritability Active Medications: Current Medications Acetaminophen (Acetaminophen 325 Mg Tablet) 650 mg PO Q6H PRN PRN Reason: Pain, Mild (Pain Scale 1-3), fever or headache Last Admin: 06/22/24 00:44 Dose: 650 mg Albuterol Sulfate (Albuterol Sulfate 90 Mcg 8 Gm Inhaler) 1 puff INHALE QID PRN PRN Reason: Shortness Of Breath Or Wheezing Aripiprazole (Aripiprazole 10 Mg Tablet) 10 mg PO DAILY [facility] Last Admin: 06/23/24 08:40 Dose: 10 mg Calcium Carbonate (Calcium Carbonate 750 Mg Tab.Chew) 750 mg PO Q4H PRN PRN Reason: Heartburn Duloxetine HCl (Duloxetine Hcl 20 Mg Capsule.Dr) 20 mg PO BID [facility] Last Admin: 06/23/24 08:39 Dose: 20 mg Fentanyl (Fentanyl 25 Mcg Patch.Td72) 25 mcg TRANSDERMA Q72H [facility] Last Admin: 06/23/24 03:56 Dose: 25 mcg Ceftriaxone Sodium 2 gm/ (Sodium Chloride) 50 mls @ 100 mls/hr IV Q24H [facility] Last Infusion: 06/22/24 21:36 Dose: Infused Magnesium Hydroxide (Milk Of Magnesia 30 Ml Oral.Susp) 30 ml PO DAILY PRN PRN Reason: Constipation Melatonin (Melatonin 3 Mg Tablet) 6 mg PO BEDTIME PRN PRN Reason: Insomnia Metoprolol Tartrate (Metoprolol Tartrate 12.5 Mg Halftab) 12.5 mg PO BID [facility]; Protocol Last Admin: 06/23/24 08:39 Dose: 12.5 mg Morphine Sulfate (Morphine Sulfate 4 Mg/Ml Cartridge) 4 mg IVPUSH Q4H PRN; Protocol PRN Reason: Pain, Severe (Pain Scale 7-10) Last Admin: 06/22/24 19:20 Dose: 4 mg Nicotine (Nicotine 21 Mg Patch.Td24) 21 mg TRANSDERMA DAILY [facility] Last Admin: 06/23/24 08:40 Dose: 21 mg Nitroglycerin (Nitroglycerin 0.4 Mg Tab.Subl) 0.4 mg SUBLINGUAL Q5M PRN PRN Reason: Chest Pain Ondansetron HCl (Ondansetron Hcl 4 Mg/2 Ml Vial) 4 mg IVPUSH Q8H PRN PRN Reason: Nausea and Vomiting Last Admin: 06/21/24 10:35 Dose: 4 mg Oxycodone HCl (Oxycodone Hcl Immed Release 5 Mg Tablet) 10 mg PO Q4H PRN PRN Reason: Pain, Severe (Pain Scale 7-10) Last Admin: 06/23/24 04:04 Dose: 10 mg Polyethylene Glycol (Polyethylene Glycol 3350 17 Gm Powd.Pack) 17 gm PO DAILY [facility] Last Admin: 06/23/24 08:48 Dose: Not Given Senna/Docusate Sodium (Sennosides/Docusate Sodium Tablet) 1 tab PO DAILY [facility] Last Admin: 06/23/24 08:48 Dose: Not Given Sodium Chloride (0.9 % Sodium Chloride Flush 3 Ml Syringe) 3 ml IVFLUSH QSHIFT [facility] Last Admin: 06/23/24 08:38 Dose: 3 ml Home Medications ?Medication ?Instructions ?Recorded ?Confirmed ?Last Taken ?Type metoprolol tartrate 25 mg tablet 25 mg PO BID 01/14/21 06/20/24 06/19/24 History nitroglycerin 0.4 mg sublingual 0.4 mg sublingual Q5M PRN Chest 01/14/21 06/20/24 Unknown History tablet Pain aripiprazole 10 mg tablet (Abilify) 10 mg PO DAILY psychosis 01/16/22 06/20/24 06/19/24 History multivitamin with minerals-folic 0.4 tab PO DAILY 08/12/23 06/20/24 Unknown History acid 0.4 mg tablet (One-A-Day Women's 50 Plus) Magic Mouthwash 10 ml PO QID PRN Mouth Pain 06/20/24 06/20/24 Unknown History Diphen/Lido/Antacid 1:1:1 240 mL suspension albuterol sulfate 90 mcg/actuation 1 puff inhalation QID PRN 06/20/24 06/20/24 Unknown History aerosol inhaler (Ventolin HFA) Shortness Of Breath Or Wheezing morphine 30 mg tablet,extended 30 mg PO Q12H 06/20/24 06/20/24 06/19/24 History release nystatin 100,000 unit/mL oral 100,000 unit buccal QID PRN Mouth 06/20/24 06/20/24 Unknown History suspension Pain pantoprazole 40 mg tablet,delayed 40 mg PO DAILY@0630 06/20/24 06/20/24 06/19/24 History release sennosides 8.6 mg tablet (Senokot) 8.6 mg PO BID PRN prn 06/20/24 06/20/24 Unknown History Physical Exam Vital Signs: Last Vital Signs Temp 97.8 F 06/23/24 07:26 Pulse 96 06/23/24 07:26 Resp 17 06/23/24 07:26 BP 99/66 06/23/24 07:26 Pulse Ox 97 06/23/24 07:26 O2 Del Method Room Air 06/23/24 07:26 BMI result Body Mass Index 24.4 Const General: ill appearing Neck Neck: Yes supple Resp Auscultation: clear to auscultation bilaterally Cardio Palpation: no palpable S3 Heart sounds: no rubs GI Palpation (GI): Soft to palpation Auscultation: normal bowel sounds Neuro Motor exam (neuro): no asterixis Results Lab Results 06/23/24 05:35 06/23/24 05:35 Lab results: Chemistry 06/22/24 06/23/24 06:27 05:35 Sodium 126 L 126 L Potassium 4.4 4.5 Carbon Dioxide 21 L 20 L BUN 37 H 34 H Creatinine 0.82 0.64 Calcium 8.6 8.4 Hematology 06/21/24 06/22/24 06/23/24 07:44 06:27 05:35 WBC 16.1 H 18.8 H 19.7 H Hgb 10.5 L 11.1 L 10.1 L Plt Count 34 L 32 L 26 L Urine Studies 06/21/24 06:08 Urine Osmolality 613 Assessment and Plan (1) Hyponatremia: Status: Acute Plan 48-year-old man with a metastatic pancreatic cancer has asymptomatic hyponatremia. Urine sodium was low suggestive of hypoperfusion. She has been drinking excessive amount of free water which could have contributed to the hyponatremia. Recommendation Restrict oral free water intake to 1 L per 24 hours. She can drink other fluids like Gatorade ensure etc.. Administer 1 L normal saline at 75 cc/hour. Goal is to correct serum sodium at a rate of 0.5-1 millimole per L/hr and not exceed more than 10 millimoles. No indication for hypertonic saline. Can not use urea powder given abnormal liver functions. Goal is to maintain serum sodium more than 130 millimoles. Shall follow along Procedures Date of Service Date of Service: 06/23/24
[2024-06-23 13:15] LABS: Osmolality Urine 645 mosm/kg (373-1093)
--- NOTE | 2024-06-23 13:15 | MHC.CLN ---
F/U DIET=REGULAR. ENSURE TID PROVIDES ADDITIONAL 1050 KCALS, 60 G PROTEIN. DX PANCREATIC CANCER WITH METS TO LIVER. POOR APPETITE REPORTED. PLAN OF CARE IS TO DISCHARGE WITH HOSPICE SERVICES. PROVIDE FOOD PREFERENCES ABLE.
--- NOTE | 2024-06-23 14:13 | PM.DS ---
DS: Providers Provider Date of Service: 06/23/24 Date of admission: 06/19/24 23:07 Date of discharge: 06/23/24 Primary care physician: Carlyn Enriquez MD Consults: 06/20/24 14:31 Consult to Hematology / Oncology [place]ine [place] [facility] Reason for consultation: metastatic pancreatic ca Has provider been notified: Yes 06/23/24 11:11 Consult to Nephrology Routine Consulting Provider[place] [facility] Reason for consultation: hyponatremia Has provider been notified: No Attending physician on discharge: Hayden Lopez Discharging clinician: Laura Oro DS: Diagnosis Discharge Diagnosis (1) Hyponatremia: Status: Acute (2) Pancreatic carcinoma metastatic to liver: Status: Acute DS: Summary Hospital Course Hospital Course: From H&P on the day of admission This is a 48-year-old female with pertinent history of breast cancer status post mastectomy, metastatic pancreatic cancer diagnosed in Jul 2023 on chemotherapy, tobacco use disorder, history of PE on Eliquis, gastroesophageal reflux disease, congestive heart failure with preserved ejection fraction, peripheral neuropathy who presents to the emergency department for evaluation of weakness. Patient states that for the last few days she has been feeling weak. Also with early satiety and poor p.o. intake. She has noticed that her belly is swollen and endorses easy fatigability. Patient missed her last chemotherapy session due to thrombocytopenia and weakness. Also admits change in color and odor of urine with burning micturition. Admits chills but no documented fever, no dyspnea, chest pain, palpitations. Does have loose stools due to chemotherapy. In the emergency department, imaging with large volume ascites. WBC found to be elevated Sepsis Initially felt to have sepsis due to UTI however urine culture grew mixed bacterial cady, blood cultures x2 negative Persistent leukocytosis ?related to cancer has not use steroids recently elevated WBC and neutrophils c/w SBP, but peritoneal fluid culture showed no growth - was treated with IV ceftriaxone 2 gm US negative for portal vein thrombus no dic. We will discharge to complete course of oral antibiotics Abdominal pain likely due to ascites related to underlying pancreatic cancer. s/p therapeutic and diagnostic paracentesis Thrombocytopenia in the setting of chemotherapy, platelets gradually trending down 43 to 34 today, follow CBC, hold platelet transfusion, monitor for bleeding and cbc. Metastatic pancreatic cancer: CT abdomen and pelvis showed diffuse heterogeneous liver likely hepatic metastasis, multiple peritoneal nodules, lymph nodes and bilateral para-aortic lymphadenopathy, multiple lung nodules with small left pleural effusion , elevated LDH 2490, Seen by Oncology, DIC screen negative, PT recommend home patient declining rehab Good pain control on current medication, fentanyl patch recently increased to 50 mcg, but tolerating 25mcg in-house with no complaints of pain Elevated liver enzymes in the setting of above, avoid hepatotoxins. Hyponatremia: Serum osmolality 268, urine osmolality normal and urine < 20 likely due to hypovolemia treated with IVF. remained persistently low. seen by nephrology and recommended fluid restriction. History of PE: As per patient she is not using Eliquis at home for several weeks as per oncology recommendation, due to thrombocytopenia will stop Eliquis Generalized weakness: Seen by Physical therapy they recommend home with services for bed mobility, transfer and gait training and therapeutic exercises. Ultimately patient requested hospice evaluation and elected to return home on hospice. The plan was initially for hospice equipment to be delivered tonight and for her to sign on hospice tomorrow however she is requesting to be discharged home today with family with plan to transition to hospice in the morning. Hospice requested hospice medications be sent to the pharmacy which was done. Time Attestation Discharge Coordination Time (in mins): 40 Quality: Safe Use of Opioids Does Pt have an Active Cancer Diagnosis on the Problem List?: Yes Opioid Measure Date for [facility] Report: 05/24/24 Opioid Measure Time for [facility] Report: 14:58 Quality: Stroke Does the patient have a stroke diagnosis?: No Physical Exam Vital Signs: Vital Signs: Last Vital Signs Temp 97.8 F 06/23/24 07:26 Pulse 96 06/23/24 07:26 Resp 17 06/23/24 07:26 BP 99/66 06/23/24 07:26 Pulse Ox 97 06/23/24 07:26 O2 Del Method Room Air 06/23/24 07:26 BMI result Body Mass Index 24.4 Const: Other: Thin, chronically ill-appearing Orientation/consciousness: patient oriented x3 Resp: Effort & Inspection: normal respiratory effort, able to speak in complete sentences, no respiratory distress and no use of accessory muscles Auscultation: clear to auscultation bilaterally Cardio: Rate: tachycardic GI: Other: softly distended, +ascites, no guarding, no rebound Palpation (GI): Soft to palpation Neuro: General: patient oriented x3, moves all extremities and CN's II-XI intact bilaterally Extrem: Other: trace -1+ leg edema b/l LE DS: Data Data Completed and Pending Pending studies at discharge: Pending at discharge 06/20/24 12:04 Cytology [PTH] Routine Labs on day of discharge: Laboratory Results - last 24 hr 06/23/24 06/23/24 05:35 Unknown WBC 19.7 H RBC 3.68 L Hgb 10.1 L Hct 30.3 L MCV 82.3 MCH 27.4 MCHC 33.3 RDW 25.6 H Plt Count 26 L MPV Not Reportable Immature Gran % (Auto) 4.0 H Neut % (Auto) 85.1 H Lymph % (Auto) 2.9 L [place] % (Auto) 7.6 Eos % (Auto) 0.1 Baso % (Auto) 0.3 Lymph # (Auto) 0.6 L [place] # (Auto) 1.5 H Eos # (Auto) 0.0 Baso # (Auto) 0.1 Abs Immat Gran (auto) 0.79 H Absolute Neuts (auto) 16.8 H Absolute Nucleated RBC 0.000 Nucleated RBC % (auto) 0.0 Hold Purple Top SEE NOTE Sodium 126 L Potassium 4.5 Chloride 93 L Carbon Dioxide 20 L Anion Gap 18 BUN 34 H Creatinine 0.64 Estim Creat Clear Calc 90.0 Estimated GFR > 60 Random Glucose 82 Calcium 8.4 Urine Osmolality 645 Preliminary micro results at discharge 06/20/24 12:04 Anaerobic Culture - Preliminary Peritoneal Fluid No growth to date. 06/19/24 23:51 Blood Culture - Preliminary Blood - Venous No growth after 48 hours. 06/19/24 23:39 Blood Culture - Preliminary Blood - Venous No growth after 48 hours. Discharge Plan Discharge Anticipated Discharge Date/Time: 06/23/24 14:56 Patient Disposition: Home, Self-Care Discharge Diagnosis: SBP metastatic pancreatic ca hyponatremia Referrals: Ashok LYNNE [Outside] - 1 Day ([facility] will see you tomorrow to initiate hospice services.) Carlyn Enriquez MD [Primary Care Provider] - 1 Week Discharge Medications: New acetaminophen 650 mg suppository 650 mg WI Q6H PRN (Reason: mild pain, fever ) Qty: 50 0RF bisacodyl [Dulcolax (bisacodyl)] 10 mg suppository 10 mg WI DAILY PRN (Reason: constipation) Qty: 30 0RF lorazepam 0.5 mg tablet 0.5 mg PO Q4H PRN (Reason: anxiety/dyspnea) Qty: 10 0RF morphine concentrate 100 mg/5 mL (20 mg/mL) solution 5 mg PO Q1H PRN (Reason: pain/dyspnea ) Qty: 30 0RF Rx Instructions: Partial Fill upon patient request. HOSPICE haloperidol 0.5 mg tablet 0.5 mg PO Q4H Qty: 10 0RF Rx Instructions: HOSPICE cefuroxime axetil 500 mg tablet 500 mg PO BID 3 Days Qty: 6 0RF Continued dexamethasone 4 mg Tablet 4 mg PO BID Qty: 100 3RF Rx Instructions: Take 4 mg p.o. b.i.d. Day 2 and Day 3 of chemotherapy q.2 weeks. loperamide [Imodium A-D] 2 mg Tablet 2 mg PO Q4H PRN (Reason: Diarrhea) Qty: 60 4RF Rx Instructions: administer after each loose stool until symptoms controlled; do not exceed 8 mg per 24 hrs potassium chloride 20 mEq Tablet Extended Release 20 meq PO DAILY Qty: 60 3RF duloxetine 20 mg Capsule,Delayed Release(Dr/Ec) 20 mg PO BID Qty: 60 3RF ondansetron 8 mg Tablet,Disintegrating 8 mg PO Q8H Qty: 50 4RF fentanyl 50 mcg/hr Patch 72 Hour 1 patch TRANSDERMAL Q72H Qty: 5 0RF Rx Instructions: Partial Fill upon patient request. polyethylene glycol 3350 [Miralax] 17 gram/dose powder 17 g PO DAILY PRN (Reason: laxative effect) Qty: 238 0RF albuterol sulfate [Ventolin HFA] 90 mcg/actuation HFA aerosol inhaler 1 puff INHALATION QID PRN (Reason: Shortness Of Breath Or Wheezing) sennosides [Senokot] 8.6 mg tablet 8.6 mg PO BID PRN (Reason: prn) nystatin 100,000 unit/mL suspension 100,000 unit BUCCAL QID PRN (Reason: Mouth Pain) Rx Instructions: administer 1/2 of dose in each side of the mouth pantoprazole 40 mg tablet,delayed release (DR/EC) 40 mg PO DAILY@0630 Magic Mouthwash Diphen/Lido/Antacid 1:1:1 240 mL suspension 10 ml PO QID PRN (Reason: Mouth Pain) Rx Instructions: Lidocaine Viscous 2 % 80mL; diphenhydramine 12.5 mg/5 mL 80mL; aluminum-mag hydrox-simeth [id number]/5mL 80mL nitroglycerin 0.4 mg tablet, sublingual 0.4 mg sublingual Q5M PRN (Reason: Chest Pain) Rx Instructions: do not exceed 3 doses per episode aripiprazole [Abilify] 10 mg tablet 10 mg PO DAILY multivit with min-folic acid [One-A-Day Women's 50 Plus] 0.4 mg tablet 0.4 tab PO DAILY Held metoprolol tartrate 25 mg tablet 25 mg PO BID Hold Instructions: hold due to low bp Discontinued oxycodone 10 mg Tablet 10 mg PO Q6H PRN (Reason: Breakthrough Pain, Moderate) Qty: 80 0RF Rx Instructions: Partial Fill upon patient request. Eliquis 2.5 mg Tablet 2.5 mg PO BID Qty: 60 1RF morphine 30 mg tablet extended release 30 mg PO Q12H No Action (DME) FreeStyle Lite Strips Strip See Rx Instructions .Route Qty: 200 1RF Rx Instructions: check fasting glucose qd ac (DME) Shower Chair Misc Qty: 1 0RF Rx Instructions: As Directed (DME) cane Device Qty: 1 0RF Rx Instructions: As Directed (DME) blood-glucose meter [FreeStyle [place] Lite] Kit See Rx Instructions .Route Qty: 1 0RF Rx Instructions: check fasting glucose once a day Discharge Orders: Discharge Order (Routine); Ordered 06/23/24 Ordered By: Laura Oro Activity on Discharge: As tolerated Stand Alone Forms: Patient Portal Discharge page Print Language: Pashto Care Plan Goals: see below Health Concerns: Metastatic pancreatic cancer New onset ascites Hyponatremia Plan of Treatment: home with hospice can complete course of oral antibiotics for SBP plan to transition to hospice pain medications Assessment: see discharge summary
[2024-06-23 15:08] VITALS: BP 109/72; PULSE 108; RESP 18; TEMP 36.1; O2SAT 97
[2024-06-23 15:21] LABS: Sodium Urine Random < 20.0 mmol/L
== END 2024-06-23 19:24 | disposition home or self-care (01) | DRG 436 ==
LOC: HO.ED 18:50 → HO.EDOVER 23:12 → HO.S3 23:25
PROVIDERS: Hospitalist; Internal Medicine Medical Oncology; Admitting Provider Student in an Organized Health Care Education/Training Program; Emergency Provider Internal Medicine; PCP Internal Medicine; Visit Provider Physician Assistant Medical
DX: C25.1 Malignant neoplasm of body of pancreas (principal); C77.2 Secondary and unspecified malignant neoplasm of intra-abdominal lymph nodes; I50.32 Chronic diastolic (congestive) heart failure; E87.1 Hypo-osmolality and hyponatremia; C78.7 Secondary malignant neoplasm of liver and intrahepatic bile duct; C78.02 Secondary malignant neoplasm of left lung; C78.01 Secondary malignant neoplasm of right lung; R18.0 Malignant ascites; G89.3 Neoplasm related pain (acute) (chronic); Z66 Do not resuscitate; F17.210 Nicotine dependence, cigarettes, uncomplicated; Z71.6 Tobacco abuse counseling; G62.9 Polyneuropathy, unspecified; Z20.822 Contact with and (suspected) exposure to COVID-19; Z85.3 Personal history of malignant neoplasm of breast; Z86.711 Personal history of pulmonary embolism; Z91.199 Patient's noncompliance with other medical treatment and regimen due to unspecified reason; Z79.01 Long term (current) use of anticoagulants; Z79.899 Other long term (current) drug therapy
CPT/HCPCS: 36415; 49083; 74176; 76705; 80048; 80053; 81001; 82042; 82150; 82945; 83605; 83615; 83930; 83935; 83986; 84157; 84300; 85007; 85025; 85027; 85379; 85384; 85610; 85730; 86301; 87040; 87070; 87073; 87086; 87205; 87635; 88112; 88305; 88341; 88342; 89051; 93005; 97162; 99285; J0696; J1642; J2270; J2405

== ENCOUNTER 2024-06-19 23:07 | Outpatient (BNV) | payer OTHER, SELFPAY | END 2024-06-20 12:00 | PROVIDERS: Admitting Provider Student in an Organized Health Care Education/Training Program; Emergency Provider Internal Medicine; PCP Internal Medicine; Visit Provider Student in an Organized Health Care Education/Training Program | DX: R18.8 Other ascites (principal) | CPT/HCPCS: 49083 ==

== ENCOUNTER → 2024-06-19 23:07 | Outpatient (BNV) | payer OTHER, SELFPAY | PROVIDERS: Admitting Provider Student in an Organized Health Care Education/Training Program; Emergency Provider Internal Medicine; PCP Internal Medicine; Visit Provider Student in an Organized Health Care Education/Training Program | DX: E87.1 Hypo-osmolality and hyponatremia (principal); C25.9 Malignant neoplasm of pancreas, unspecified; C78.7 Secondary malignant neoplasm of liver and intrahepatic bile duct | CPT/HCPCS: 99223; 99232; 99239 ==

== ENCOUNTER → 2024-06-19 23:07 | Outpatient (BNV) | payer OTHER, SELFPAY | PROVIDERS: Admitting Provider Student in an Organized Health Care Education/Training Program; Emergency Provider Internal Medicine; PCP Internal Medicine; Visit Provider Internal Medicine Hypertension Specialist | DX: E87.1 Hypo-osmolality and hyponatremia (principal); C25.9 Malignant neoplasm of pancreas, unspecified; C78.7 Secondary malignant neoplasm of liver and intrahepatic bile duct | CPT/HCPCS: 99223 ==

== ENCOUNTER → 2024-06-19 23:07 | Outpatient (BNV) | payer OTHER, SELFPAY | PROVIDERS: Admitting Provider Student in an Organized Health Care Education/Training Program; Emergency Provider Internal Medicine; PCP Internal Medicine; Visit Provider Internal Medicine Medical Oncology | DX: C25.9 Malignant neoplasm of pancreas, unspecified (principal); C78.7 Secondary malignant neoplasm of liver and intrahepatic bile duct | CPT/HCPCS: 99222 ==